=== PATIENT | female | born 1945 | race Caucasian/White ===

== ENCOUNTER 2016-07-16 15:39 | Inpatient (IN) | payer BC, OTHER ==
[~2016-07-16] VITALS: Ht 157.5 cm; Wt 77.7 kg
[2016-07-16] MEDS ORDERED: SODIUM CHLORIDE 0.9% 1000ML 1,000 ML IV STA (15:54)
--- NOTE | 2016-07-16 15:59 | EMERGENCY ROOM VISIT NOTE ---
History Report prepared by Katharine: Jacinto Vazquez Under the Supervision of: Dr. Tian Walton M.D. First contact with patient: 15:47 Stated Complaint: FALL/ DEHYDRATED, WEAK History of Present Illness The patient is a 71 year old female who presents to the Emergency Room with complaints of persistent right hip and knee pain s/p falling 2 days ago. The patient fell 2 days ago and has been lying on floor since the fall. She was found by her palliative care physician today. Upon arrival of EMS, she was hypothermic and hypoxic. She was given a liter of fluid en route, and was awake, alert, and oriented on arrival. The patient complains of right hip and right knee pain. She reports she does not have as much muscle tone as she normally does, and was unable to get herself up after the fall. She denies taking any blood thinners. Source of History: patient, nursing staff Onset: 2 days ago Position: other (right hip and knee) Quality: other (hip and knee pain) Timing: other (persistent) Associated Symptoms: + weakness Review of Systems See HPI for pertinent positives & negatives. A total of 10 systems reviewed and were otherwise negative. Past Medical & Surgical Medical Problems: (1) CKD (chronic kidney disease), stage III (2) COPD, moderate (3) Depression (4) DM type 2 (diabetes mellitus, type 2) (5) Hypothyroidism Family History No pertinent family history stated. Social History Alcohol Use: none Occupation Status: employed Current/Historical Medications Scheduled Acetaminophen (Tylenol Arthritis Ext Rel), 650 MG PO DAILY Acetazolamide (Acetazolamide), 250 MG PO TID Albuterol Sulfate (Proair Respiclick), 2 PUFF INH QID Alendronate Sodium (Fosamax), 70 MG PO WK Aspirin (Aspirin Chewable), 81 MG PO DAILY Calcitriol (Rocaltrol Cap), 0.25 MCG PO MWF Calcium Citrate-Vitamin D (Citracal + D3 Maximum), 1 TAB PO DAILY Cetirizine Hcl (Zyrtec), 5 MG PO DAILY Docusate Sodium (Colace Clear), 1 CAP PO DAILY Fluticasone Propionate (Nasal) (Flonase Allergy Relief), 2 SPRAYS MARI DAILY Levothyroxine Sodium (Levothyroxine Sodium), 1 TAB PO DAILY Lisinopril (Zestril), 2.5 MG PO DAILY Losartan Potassium (Cozaar), 1 TAB PO DAILY Metformin Hcl (Glucophage), 500 MG PO BID Pravastatin (Pravachol ), 20 MG PO DAILY Sertraline (Zoloft), 50 MG PO DAILY Umeclidinium-Vilanterol (Anoro Ellipta 62.5-25 Mcg/INH), 1 PUFFS INH DAILYBB Scheduled PRN Aluminum Hydroxide-Mag Trisil (Gaviscon), 2-4 TAB PO QID PRN for GI Upset Allergies Coded Allergies: Penicillins (Verified Allergy, Unknown, ., 07/16/16) Physical Exam Vital Signs Date Time Temp Pulse Resp B/P Pulse Ox O2 Delivery O2 Flow Rate FiO2 07/16/16 18:05 93 18 100/70 96 Nasal Cannula 2.0 07/16/16 17:49 36.4 86 16 97/67 100 Nasal Cannula 2.0 07/16/16 16:36 88 07/16/16 16:27 35.9 88 22 135/85 100 Nasal Cannula 2.0 07/16/16 16:19 78 16 132/66 100 Nasal Cannula 2.0 Physical Exam GENERAL: Patient is chronically unwell and tired appearing and cool to the touch. HEENT: No acute trauma, normocephalic atraumatic, mucous membranes moist, no nasal congestion, no scleral icterus. NECK: No stridor, no adenopathy, no meningismus, trachea is midline. LUNGS: No dyspnea. Clear to auscultation and equal bilaterally. No wheeze, no rhonchi. HEART: Regular rate and rhythm. No murmurs, rubs, gallops appreciated. ABDOMEN: Soft, nontender, bowel sounds positive, no masses appreciated, no peritonitis. BACK: No midline tenderness, no CVA tenderness EXTREMITIES: Hands and feet are muddled. Compression ulcer of right knee. Bruising from right face over right chest and arm down right leg. NEUROLOGIC: Alert and oriented, no acute motor or sensory deficits, no focal weakness, cranial nerves grossly intact. SKIN: No rash, no jaundice, no diaphoresis. Medical Decision & Procedures ER Provider Diagnostic Interpretation: Radiology results and stated below per my review and radiologist interpretation: HEAD CT NONCONTRAST Findings: The paranasal sinuses and mastoid air cells are clear. The calvarium and skull base are intact. Mild atrophy and microvascular ischemic changes are noted. There is no mass, midline shift, acute infarct. Small hyperdense focus within the left posterior parietal lobe on image 17. This measures 8 mm. Impression: Small hyperdense focus within the left posterior parietal lobe on image 17. This favors artifact. However, a small cortical contusion/hemorrhage could also have a similar appearance. [address] follow-up is recommended to ensure stability. Electronically signed by: Thomas Pang M.D. 07/16/2016 5:51 PM Dictated Date/Time: 07/16/2016 5:47 PM CHEST ONE VIEW PORTABLE FINDINGS: The lungs are clear. Cardiac silhouette is normal in size. No pleural effusions. No pneumothorax. IMPRESSION: No acute process. Electronically signed by: Thomas Pang M.D. 07/16/2016 5:59 PM Dictated Date/Time: 07/16/2016 5:59 PM PELVIS 1 OR 2 VIEW ROUTINE, RIGHT FEMUR 2 VIEWS ROUTINE FINDINGS: No acute fracture or dislocation within the pelvis, hips, right femur. The sacrum appears intact. Soft tissues are unremarkable. Moderate to severe osteoarthritis within the right knee. IMPRESSION: No acute fracture or dislocation within the pelvis, hips, or right femur. Electronically signed by: Thomas Pang M.D. 07/16/2016 5:59 PM Dictated Date/Time: 07/16/2016 5:57 PM PELVIS 1 OR 2 VIEW ROUTINE, RIGHT FEMUR 2 VIEWS ROUTINE FINDINGS: No acute fracture or dislocation within the pelvis, hips, right femur. The sacrum appears intact. Soft tissues are unremarkable. Moderate to severe osteoarthritis within the right knee. IMPRESSION: No acute fracture or dislocation within the pelvis, hips, or right femur. Electronically signed by: Thomas Pang M.D. 07/16/2016 5:59 PM Dictated Date/Time: 07/16/2016 5:57 PM Laboratory Results 07/16/16 16:55 Red Blood Count 4.29, Mean Corpuscular Volume 81.8, Mean Corpuscular Hemoglobin 28.2, Mean Corpuscular Hemoglobin Concent 34.5, Mean Platelet Volume 11.6, Neutrophils (%) (Auto) 82.0, Lymphocytes (%) (Auto) 4.1, Monocytes (%) (Auto) 10.2, Eosinophils (%) (Auto) 0.1, Basophils (%) (Auto) 0.2, Neutrophils # (Auto ) 13.36, Lymphocytes # (Auto) 0.67, Monocytes # (Auto) 1.67, Eosinophils # (Auto ) 0.02, Basophils # (Auto) 0.03 07/16/16 15:07 07/16/16 16:55 Test 07/16/16 15:07 07/16/16 16:05 07/16/16 16:22 07/16/16 16:23 Estimated GFR () 44.0 Estimated GFR (Non- 38.0 BUN/Creatinine Ratio 66.6 (10-20) Calcium Level 9.4 mg/dl (8.5-10.1) Phosphorus Level 4.6 mg/dl (2.5-4.9) Total Bilirubin 0.5 mg/dl (0.2-1) Alanine Aminotransferase (ALT/SGPT) 43 U/L (12-78) Alkaline Phosphatase 74 U/L (45-117) Total Protein 7.8 gm/dl (6.4-8.2) Albumin 2.9 gm/dl (3.4-5.0) Bedside Lactic Acid Venous 1.79 mmol/L (0.90-1.70) Urine Color YELLOW Urine Appearance CLOUDY (CLEAR) Urine pH 5.5 (4.5-7.5) Urine Specific [place] 1.020 (1.000-1.030) Urine Protein 1+ (NEG) Urine Glucose (UA) NEG (NEG) Urine Ketones 1+ (NEG) Urine Occult Blood 2+ (NEG) Urine Nitrite NEG (NEG) Urine Bilirubin NEG (NEG) Urine Urobilinogen NEG (NEG) Urine Leukocyte Esterase MODERATE (NEG) Urine WBC (Auto) >30 /hpf (0-5) Urine RBC (Auto) 0-4 /hpf (0-4) Urine Hyaline Casts (Auto) 5-10 /lpf (0-5) Urine Epithelial Cells (Auto) 10-20 /lpf (0-5) Urine Bacteria (Auto) 4+ (NEG) Urine Pathogenic Casts 0-3 GRANULAR CASTS /lpf (0) Urine Yeast (Auto) PRESENT (NONE PRSENT) Bedside Hemoglobin 12.9 g/dl (12.0-16.0) Bedside Hematocrit 38 % (37-47) Bedside Sodium 143 mEq/L (135-144) Bedside Potassium 3.9 mEq/L (3.3-5.0) Bedside Chloride 114 mEq/L (101-112) Bedside Total CO2 13 mEq/l (24-31) Anion Gap 21.0 mmol/L (16-25) Bedside Blood Urea Nitrogen 76 mg/dl (7-18) Bedside Creatinine 1.1 mg/dl (0.6-1.3) Bedside Glucose (other) 124 mg/dl (70-99) Bedside Ionized Calcium (Lydia) 1.13 mmol/l (1.12-1.32) Test 07/16/16 16:55 White Blood Count 16.30 K/uL (4.8-10.8) Red Blood Count 4.29 M/uL (4.2-5.4) Hemoglobin 12.1 g/dL (12.0-16.0) Hematocrit 35.1 % (37-47) Mean Corpuscular Volume 81.8 fL (80-100) Mean Corpuscular Hemoglobin 28.2 pg (25-34) Mean Corpuscular Hemoglobin Concent 34.5 g/dl (32-36) Platelet Count 228 K/uL (130-400) Mean Platelet Volume 11.6 fL (7.4-10.4) Neutrophils (%) (Auto) 82.0 % Lymphocytes (%) (Auto) 4.1 % Monocytes (%) (Auto) 10.2 % Eosinophils (%) (Auto) 0.1 % Basophils (%) (Auto) 0.2 % Neutrophils # (Auto) 13.36 K/uL (1.4-6.5) Lymphocytes # (Auto) 0.67 K/uL (1.2-3.4) Monocytes # (Auto) 1.67 K/uL (0.11-0.59) Eosinophils # (Auto) 0.02 K/uL (0-0.5) Basophils # (Auto) 0.03 K/uL (0-0.2) RDW Standard Deviation 44.7 fL (36.4-46.3) RDW Coefficient of Variation 15.0 % (11.5-14.5) Immature Granulocyte % (Auto) 3.4 % Immature Granulocyte # (Auto) 0.55 K/uL (0.00-0.02) Nucleated RBC Absolute Count (auto) 0.03 K/uL (0-0) Nucleated Red Blood Cells % 0.2 % Echinocytes 1+ Prothrombin Time 10.9 SECONDS (9.0-12.0) Prothromb Time International Ratio 1.0 (0.9-1.1) Activated Partial Thromboplast Time 30.2 SECONDS (21.0-31.0) Partial Thromboplastin Ratio 1.2 Magnesium Level 2.1 mg/dl (1.8-2.4) Direct Bilirubin 0.1 mg/dl (0-0.2) Aspartate Amino Transf (AST/SGOT) 39 U/L (15-37) Total Creatine Kinase 670 U/L (26-192) Laboratory results as reviewed by me. Medications Administered Medications (Trade) Dose Ordered Sig/[place] Route Start Time Stop Time Status Last Admin Dose Admin Sodium Chloride (Nss 1000ml) 1,000 ml @ 999 mls/hr Q1H1M STAT IV 07/16/16 15:54 07/16/16 16:54 DC 07/16/16 15:54 999 MLS/HR Ceftriaxone Sodium (Rocephin Inj) 1 gm NOW STAT IV 07/16/16 17:41 07/16/16 17:42 DC 07/16/16 18:04 1 GM Diphtheria/ Pertussis/Tetanus Vacc (Adacel Inj) 0.5 ml ONCE ONCE IM. 07/16/16 18:30 07/16/16 18:31 DC 07/16/16 18:30 0.5 ML ECG Indication: other (fall) Rate (beats per minute): 84 Rhythm: sinus rhythm Findings: no acute ischemic change, no ectopy ED Course 1550: The patient was evaluated in room A11A. A complete history and physical exam was performed. 1554: Ordered NSS 1,000 ml @ 999 mls/hr IV. 1600: Ordered Adacel Inj 0.5 ml IM. 0: I reassessed the patient. She feels better. She notes her penicillin allergy results in getting a rash. 1740: Ordered Rocephin Inj 1 gm IV. 1814: Discussed the patient's case with AN Coreas. The patient will be evaluated for further treatment and disposition. Medical Decision Differential: Toxicological, Infectious, Stroke, SAH, Trauma, Electrolyte Abnormality, Hypoglycemia, Alcohol Intoxication, Drug Intoxication, Cardiac Abnormality, Sepsis, Meningitis/Encephalitis, Trauma, Excited Delirium, Serotonin Syndrome, Psychiatric, amongst other pathologies entertained. Very dehydrated 71 yr old female with fall 2 days ago and has been laying on floor since. She has quite significant pressure ulcers of right side of body. Labs consistent with dehydration. UA consistent with UTI. Suspect early rhabdo and that CK will start elevating now that starting to hydrate and warm up. She is much more awake and interactive. CT head with questionable small area blood though most likely artifact and with fact fall was 48 hours ago, seems reasonable to just plan repeat CT in 12 hours while bringing her in here for her medical issues. Currently without need for immediate neurosurgical intervention. Stable throughout and looking better. Consults Time Called: [phone] Consulting Physician: AN Coreas - [facility] Returned Call: [phone] Discussed the patient's case with AN Coreas. The patient will be evaluated for further treatment and disposition. Impression Primary Impression: Fall Additional Impressions: Pressure ulcer Closed head injury Rhabdomyolysis UTI (urinary tract infection) Hypothermia Dehydration Scribe Attestation The scribe's documentation has been prepared under my direction and personally reviewed by me in its entirety. I confirm that the note above accurately reflects all work, treatment, procedures, and medical decision making performed by me. Departure Information Dispostion Being Evaluated By Hospitalist Referrals Ghazala Whitten M.D. (PCP) Problem Qualifiers Primary Impression: Fall Encounter type: initial encounter Qualified Codes: W19.XXXA - Unspecified fall, initial encounter Additional Impressions: Pressure ulcer Pressure ulcer location: unspecified location Pressure ulcer stage: unspecified pressure ulcer stage Qualified Codes: L89.90 - Pressure ulcer of unspecified site, unspecified stage Closed head injury Encounter type: initial encounter Qualified Codes: S09.90XA - Unspecified injury of head, initial encounter Rhabdomyolysis Rhabdomyolysis type: traumatic Encounter type: initial encounter Qualified Codes: T79.6XXA - Traumatic ischemia of muscle, initial encounter UTI (urinary tract infection) Urinary tract infection type: acute cystitis Hematuria presence: without hematuria Qualified Codes: N30.00 - Acute cystitis without hematuria Hypothermia Encounter type: initial encounter Qualified Codes: T68.XXXA - Hypothermia, initial encounter
[2016-07-16] MEDS ORDERED: DIPHTHERIA/TETANUS/PERTUSSIS 0.5 ML SYR/VIAL IM. ONE ×2 (16:00→18:30)
[2016-07-16] MEDS ORDERED: ALBU18002 INH (16:19)
[2016-07-16] MEDS ORDERED: SERT50TA PO (16:19)
[2016-07-16] MEDS ORDERED: CALC1TAB9 PO (16:19)
[2016-07-16] MEDS ORDERED: DOCU50CA10 PO (16:19)
[2016-07-16] MEDS ORDERED: LISI-789 PO (16:19)
[2016-07-16] MEDS ORDERED: ACET1TAB84 PO (16:19)
[2016-07-16] MEDS ORDERED: LOSA1TAB PO (16:19)
[2016-07-16] MEDS ORDERED: CALC0.2510 PO (16:19)
[2016-07-16] MEDS ORDERED: GLC/500 PO (16:19)
[2016-07-16] MEDS ORDERED: FLUT0.15 NAE (16:19)
[2016-07-16] MEDS ORDERED: ALEN70TA4 PO (16:19)
[2016-07-16] MEDS ORDERED: UMEC1AER INH (16:19)
[2016-07-16] MEDS ORDERED: ACET-1325 PO (16:19)
[2016-07-16] MEDS ORDERED: ASPCH81X PO (16:19)
[2016-07-16] MEDS ORDERED: ALUMCHW2 PO (16:19)
[2016-07-16] MEDS ORDERED: LEVO75TA5 PO (16:19)
[2016-07-16] MEDS ORDERED: CETI5TAB5 PO (16:19)
[2016-07-16] MEDS ORDERED: PRAV20TA PO (16:19)
[2016-07-16 16:36] LABS: BLOOD UREA NITROGEN 93 mg/dl (7-18); BUN/CREATININE RATIO 66.6 (10-20); CALCIUM 9.4 mg/dl (8.5-10.1); CARBON DIOXIDE 19 mmol/L (21-32); CHLORIDE 108 mmol/L (98-107); GLUCOSE 118 mg/dl (70-99); PHOSPHORUS 4.6 mg/dl (2.5-4.9); SODIUM 142 mmol/L (136-145)
[2016-07-16 16:37] LABS: ALKALINE PHOSPHATASE 74 U/L (45-117); ALT/SGPT 43 U/L (12-78)
[2016-07-16 16:38] LABS: ISTAT CREATININE 1.1 mg/dl (0.6-1.3); ISTAT HEMOGLOBIN 12.9 g/dl (12.0-16.0); ISTAT IONIZED CALCIUM 1.13 mmol/l (1.12-1.32)
[2016-07-16 16:45] LABS: URINE APPEARANCE CLOUDY (CLEAR); URINE BILIRUBIN NEG (NEG); URINE COLOR YELLOW; URINE NITRITE NEG (NEG); URINE PH 5.5 (4.5-7.5); UROBILINOGEN NEG (NEG); ZZURINE CULT IF INDIC CATH YES
[2016-07-16 16:49] LABS: MANUAL MICROSCOPIC REQUIRED? NO; REVIEW REQ? YES
[2016-07-16 17:19] LABS: POTASSIUM 3.5 mmol/L (3.5-5.1)
[2016-07-16 17:19] LABS: URINE PATH CASTS 0-3 GRANULAR CASTS /lpf (0)
[2016-07-16 17:22] LABS: PARTIAL THROMBOPLASTIN RATIO 1.2; PROTHROMBIN TIME (PATIENT) 10.9 SECONDS (9.0-12.0)
[2016-07-16 17:27] LABS: MAGNESIUM 2.1 mg/dl (1.8-2.4)
[2016-07-16 17:36] LABS: HEMATOCRIT 35.1 % (37-47); MEAN CELL VOLUME 81.8 fL (80-100); MEAN CORPUSCULAR HEMOGLOBIN 28.2 pg (25-34); MEAN CORPUSCULAR HGB CONC 34.5 g/dl (32-36); MEAN PLATELET VOLUME 11.6 fL (7.4-10.4); PLATELET COUNT 228 K/uL (130-400); RED BLOOD COUNT 4.29 M/uL (4.2-5.4)
[2016-07-16] MEDS ORDERED: CEFTRIAXONE SOD INJ 1 GM ADDVIAL IV STA (17:41)
--- NOTE | 2016-07-16 17:53 | DIAGNOSTIC IMAGING REPORT ---
HEAD CT NONCONTRAST CT DOSE: 537.48 mGy.cm HISTORY: Altered mental status. TECHNIQUE: Multiaxial CT images of the head were performed without the use of intravenous contrast. Automated exposure control was utilized for this study. Comparison: None. Findings: The paranasal sinuses and mastoid air cells are clear. The calvarium and skull base are intact. Mild atrophy and microvascular ischemic changes are noted. There is no mass, midline shift, acute infarct. Small hyperdense focus within the left posterior parietal lobe on image 17. This measures 8 mm. Impression: Small hyperdense focus within the left posterior parietal lobe on image 17. This favors artifact. However, a small cortical contusion/hemorrhage could also have a similar appearance. [address] follow-up is recommended to ensure stability. Electronically signed by: Thomas Pang M.D. 07/16/2016 5:51 PM Dictated Date/Time: 07/16/2016 5:47 PM
--- NOTE | 2016-07-16 18:01 | DIAGNOSTIC IMAGING REPORT ---
PELVIS 1 OR 2 VIEW ROUTINE, RIGHT FEMUR 2 VIEWS ROUTINE CLINICAL HISTORY: fall right hip pain COMPARISON STUDY: None. FINDINGS: No acute fracture or dislocation within the pelvis, hips, right femur. The sacrum appears intact. Soft tissues are unremarkable. Moderate to severe osteoarthritis within the right knee. IMPRESSION: No acute fracture or dislocation within the pelvis, hips, or right femur. Electronically signed by: Thomas Pang M.D. 07/16/2016 5:59 PM Dictated Date/Time: 07/16/2016 5:57 PM
--- NOTE | 2016-07-16 18:02 | DIAGNOSTIC IMAGING REPORT ---
CHEST ONE VIEW PORTABLE HISTORY: Fall. Altered mental status. COMPARISON: Chest 10/30/2012. FINDINGS: The lungs are clear. Cardiac silhouette is normal in size. No pleural effusions. No pneumothorax. IMPRESSION: No acute process. Electronically signed by: Thomas Pang M.D. 07/16/2016 5:59 PM Dictated Date/Time: 07/16/2016 5:59 PM
[2016-07-16 18:17] LABS: BASO % 0.2 %; BASO ABS # 0.03 K/uL (0-0.2); COMPLETE YES; ECHINOCYTES 1+; EOS % 0.1 %; IG% 3.4 %; LYMPH % 4.1 %; LYMPH ABS # 0.67 K/uL (1.2-3.4); MONO % 10.2 %
[2016-07-16] MEDS ORDERED: SODIUM CHLORIDE 0.9% 1000ML 1,000 ML IV SCH (19:15)
[2016-07-16] MEDS ORDERED: ONDANSETRON INJ 2 MG/ML 2 ML VIAL IV PRN (19:15)
[2016-07-16] MEDS ORDERED: ALBUTEROL HFA 8 GM INHALER INH PRN (19:45)
[2016-07-16] MEDS ORDERED: GLUCOSE 40% GEL 15 GM TUBE PO PRN (20:00)
[2016-07-16] MEDS ORDERED: DEXTROSE 50% 50 ML SYR IV PRN (20:00)
[2016-07-16] MEDS ORDERED: GLUCOSE 10 TABS/TUBE PO PRN (20:00)
[2016-07-16] MEDS ORDERED: GLUCAGON FOR INJ 1 MG VIAL SQ PRN (20:00)
[2016-07-16 20:02] VITALS: BP 117/70; PULSE 90; TEMP 36.5; O2SAT 100; Ht 157.5 cm; Wt 77.7 kg
--- NOTE | 2016-07-16 20:22 | History and Physical ---
History & Physical Date & Time of Service: Jul 16, 2016 at 19:16 Chief Complaint: Fall, Weakness Primary Care Physician: Ghazala Whitten M.D. History of Present Illness 71 year old female who presents to the ER after being found on the floor by her sister unable to get up. Patient reports 2 days ago when she got out of bed, she walked into her living room, lost her balance and fell. She was unable to get up. Patient reports some mild lightheadedness with the fall but denies loss of coconsciousness. She did strike her head. Patient reports earlier in the week she was constipated and took a laxative. She then had diarrhea for 3 days. She also reports a few episodes of nausea and vomiting. She denies hematemesis, coffee ground emesis, BRBPR, or dark tarry stools. No abdominal pain. She reports some mild urinary burning a few days prior to the fall. She denies associated chest pain, palpitations, or shortness of breath. Patient was unable to get up for the past two days and was found on the floor by her sister today. Upon arrival to the ER, patient was found to be mildly hypothermic, WBC 16K, mild QUIANA, and CPK 670. U/A suggestive of UTI. BP is stable and lactic acid is normal. Patient was placed on a bear hugger with improvement in temperature. She was also given IVF and Rocephin. Past Medical/Surgical History Medical Problems: (1) CKD (chronic kidney disease), stage III Status: Chronic (2) COPD, moderate Status: Chronic (3) Depression Status: Chronic (4) DM type 2 (diabetes mellitus, type 2) Status: Chronic (5) Hypothyroidism Status: Chronic Family History FH: colon cancer SISTER Social History Smoking Status: Former Smoker Alcohol Use: none Housing status: lives alone Immunizations History of Influenza Vaccine: Yes Influenza Vaccine Date: Dec 23, 2015 History of Tetanus Vaccine?: Yes Tetanus Immunization Date: Oct 16, 2008 History of Pneumococcal: Yes Pneumococcal Date: July 30, 2015 Allergies Coded Allergies: Penicillins (Verified Allergy, Unknown, ., 07/16/16) Home Medications Scheduled Acetaminophen (Tylenol Arthritis Ext Rel), 650 MG PO DAILY Acetazolamide (Acetazolamide), 250 MG PO TID Albuterol Sulfate (Proair Respiclick), 2 PUFF INH QID Alendronate Sodium (Fosamax), 70 MG PO WK Aspirin (Aspirin Chewable), 81 MG PO DAILY Calcitriol (Rocaltrol Cap), 0.25 MCG PO MWF Calcium Citrate-Vitamin D (Citracal + D3 Maximum), 1 TAB PO DAILY Cetirizine Hcl (Zyrtec), 5 MG PO DAILY Docusate Sodium (Colace Clear), 1 CAP PO DAILY Fluticasone Propionate (Nasal) (Flonase Allergy Relief), 2 SPRAYS MARI DAILY Levothyroxine Sodium (Levothyroxine Sodium), 1 TAB PO DAILY Lisinopril (Zestril), 2.5 MG PO DAILY Losartan Potassium (Cozaar), 1 TAB PO DAILY Metformin Hcl (Glucophage), 500 MG PO BID Pravastatin (Pravachol ), 20 MG PO DAILY Sertraline (Zoloft), 50 MG PO DAILY Umeclidinium-Vilanterol (Anoro Ellipta 62.5-25 Mcg/INH), 1 PUFFS INH DAILYBB Scheduled PRN Aluminum Hydroxide-Mag Trisil (Gaviscon), 2-4 TAB PO QID PRN for GI Upset Review of Systems 10 point review of systems was completed with the pertinent positives and negatives noted per the HPI Physical Exam Vital Signs Date Time Temp Pulse Resp B/P Pulse Ox O2 Delivery O2 Flow Rate FiO2 07/16/16 18:05 93 18 100/70 96 Nasal Cannula 2.0 07/16/16 17:49 36.4 86 16 97/67 100 Nasal Cannula 2.0 07/16/16 16:36 88 07/16/16 16:27 35.9 88 22 135/85 100 Nasal Cannula 2.0 07/16/16 16:19 78 16 132/66 100 Nasal Cannula 2.0 General Appearance: no apparent distress Head: + evidence of trama (left frontal hematoma) Eyes: normal inspection ENT: hearing grossly normal Neck: supple, no JVD Respiratory/Chest: lungs clear, normal breath sounds, no respiratory distress Cardiovascular: regular rate, rhythm, no edema, normal peripheral pulses Abdomen/GI: normal bowel sounds, non tender, soft Extremities/Musculoskelatal: + pertinent finding (reports pain with movement of right knee, hip, and right shoulder) Neurologic/Psych: no motor/sensory deficits, alert, oriented x 3, + pertinent finding (slow to respond at times) Skin: + pertinent finding (wound/ stage III pressure ulcer right knee; stage I pressure ulcer left sacrum) Diagnostics Laboratory Results Results Past 24 Hours Test 07/16/16 15:07 07/16/16 16:05 07/16/16 16:22 07/16/16 16:23 Range/Units Sodium Level 142 136-145 mmol/L Potassium Level 3.5-5.1 mmol/L Chloride Level 108 98-107 mmol/L Carbon Dioxide Level 19 21-32 mmol/L Anion Gap 15.0 21.0 16-25 mmol/L Blood Urea Nitrogen 93 7-18 mg/dl Creatinine 1.40 0.60-1.20 mg/dl Estimated GFR () 44.0 Estimated GFR (Non- 38.0 BUN/Creatinine Ratio 66.6 10-20 Random Glucose 118 70-99 mg/dl Calcium Level 9.4 8.5-10.1 mg/dl Phosphorus Level 4.6 2.5-4.9 mg/dl Magnesium Level 1.8-2.4 mg/dl Total Bilirubin 0.5 0.2-1 mg/dl Direct Bilirubin 0-0.2 mg/dl Aspartate Amino Transf (AST/SGOT) 15-37 U/L Alanine Aminotransferase (ALT/SGPT) 43 12-78 U/L Alkaline Phosphatase 74 45-117 U/L Total Creatine Kinase 26-192 U/L Troponin I < 0.015 0-0.045 ng/ml Total Protein 7.8 6.4-8.2 gm/dl Albumin 2.9 3.4-5.0 gm/dl Bedside Lactic Acid Venous 1.79 0.90-1.70 mmol/L Urine Color YELLOW Urine Appearance CLOUDY CLEAR Urine pH 5.5 4.5-7.5 Urine Specific [place] 1.020 1.000-1.030 Urine Protein 1+ NEG Urine Glucose (UA) NEG NEG Urine Ketones 1+ NEG Urine Occult Blood 2+ NEG Urine Nitrite NEG NEG Urine Bilirubin NEG NEG Urine Urobilinogen NEG NEG Urine Leukocyte Esterase MODERATE NEG Urine WBC (Auto) >30 0-5 /hpf Urine RBC (Auto) 0-4 0-4 /hpf Urine Hyaline Casts (Auto) 5-10 0-5 /lpf Urine Epithelial Cells (Auto) 10-20 0-5 /lpf Urine Bacteria (Auto) 4+ NEG Urine Pathogenic Casts 0-3 GRANULAR CASTS 0 /lpf Urine Yeast (Auto) PRESENT NONE PRSENT Bedside Hemoglobin 12.9 12.0-16.0 g/dl Bedside Hematocrit 38 37-47 % Bedside Sodium 143 135-144 mEq/L Bedside Potassium 3.9 3.3-5.0 mEq/L Bedside Chloride 114 101-112 mEq/L Bedside Total CO2 13 24-31 mEq/l Bedside Blood Urea Nitrogen 76 7-18 mg/dl Bedside Creatinine 1.1 0.6-1.3 mg/dl Bedside Glucose (other) 124 70-99 mg/dl Bedside Ionized Calcium (Lydia) 1.13 1.12-1.32 mmol/l Test 07/16/16 16:55 Range/Units White Blood Count 16.30 4.8-10.8 K/uL Red Blood Count 4.29 4.2-5.4 M/uL Hemoglobin 12.1 12.0-16.0 g/dL Hematocrit 35.1 37-47 % Mean Corpuscular Volume 81.8 80-100 fL Mean Corpuscular Hemoglobin 28.2 25-34 pg Mean Corpuscular Hemoglobin Concent 34.5 32-36 g/dl Platelet Count 228 130-400 K/uL Mean Platelet Volume 11.6 7.4-10.4 fL Neutrophils (%) (Auto) 82.0 % Lymphocytes (%) (Auto) 4.1 % Monocytes (%) (Auto) 10.2 % Eosinophils (%) (Auto) 0.1 % Basophils (%) (Auto) 0.2 % Neutrophils # (Auto) 13.36 1.4-6.5 K/uL Lymphocytes # (Auto) 0.67 1.2-3.4 K/uL Monocytes # (Auto) 1.67 0.11-0.59 K/uL Eosinophils # (Auto) 0.02 0-0.5 K/uL Basophils # (Auto) 0.03 0-0.2 K/uL RDW Standard Deviation 44.7 36.4-46.3 fL RDW Coefficient of Variation 15.0 11.5-14.5 % Immature Granulocyte % (Auto) 3.4 % Immature Granulocyte # (Auto) 0.55 0.00-0.02 K/uL Nucleated RBC Absolute Count (auto) 0.03 0-0 K/uL Nucleated Red Blood Cells % 0.2 % Echinocytes 1+ Prothrombin Time 10.9 9.0-12.0 SECONDS Prothromb Time International Ratio 1.0 0.9-1.1 Activated Partial Thromboplast Time 30.2 21.0-31.0 SECONDS Partial Thromboplastin Ratio 1.2 Potassium Level 3.5 3.5-5.1 mmol/L Magnesium Level 2.1 1.8-2.4 mg/dl Direct Bilirubin 0.1 0-0.2 mg/dl Aspartate Amino Transf (AST/SGOT) 39 15-37 U/L Total Creatine Kinase 670 26-192 U/L Microbiology Results 07/16/16 Blood Culture, Received Pending 07/16/16 Blood Culture, Received Pending 07/16/16 Urine Culture, Received Pending Diagnostic Radiology CT Head Impression: Small hyperdense focus within the left posterior parietal lobe on image 17. This favors artifact. However, a small cortical contusion/hemorrhage could also have a similar appearance. [address] follow-up is recommended to ensure stability. CXR IMPRESSION: No acute process. PELVIS / RIGHT FEMUR XR IMPRESSION: No acute fracture or dislocation within the pelvis, hips, or right femur. Normal EKG Impression Assessment and Plan SEPSIS DUE TO UTI FALL, LIKELY MECHANICAL - admit to tele - patient presenting after falling at home 2 days ago and remained on the floor until her sister found her today - fall seems to be mechanical as patient reports she "lost her balance", she also reports mild lightheadedness which is likely from volume depletion; no loss of coconsciousness, she denies chest pain and shortness of breath, no focal deficits on exam, EKG without acute changes, troponin negative - CT head shows a small hyperdense focus that is likely artifact, however a small hemorrhage is possible - will obtain CT head in 12 hours for follow up - on presentation, patient was hypothermic with WBC 16K, HR and BP stable, lactic acid normal - U/A suggestive of UTI - urine culture from 2012 grew MRDO E. Coli resistant to cephalosporins and fluoroquinolones - s/p Rocephin in the ED, due above culture, will place patient on Imipenem until cultures result - blood and urine cultures QUIANA ON CKD STAGE III - prerenal due to dehydration - baseline creat ~ 1.0; up to 1.4 today - CPK 670 - no rhabdo - IVF, hold ACEi HTN - BP controlled - holding Diamox and lisinopril due to QUIANA DM - hgb a1c 5.4 04/2016 - hold oral agents and utilize SSI while hospitalized COPD - no signs of acute exacerbation - continue home inhalers HYPOTHYROIDISM - continue levothyroxine DVT PROPHYLAXIS - SCDs due to scalp hematoma / multiple abrasions CODE STATUS - Patient is a full code as per discussion with Dr. Woods. DISPO - In my clinical judgment this beneficiary meets acute admission criteria, established by [facility], that includes being hospitalized through two midnights. - PT/OT, case management; may need short term placement Level of Care Telemetry Resuscitation Status FULL RESUSCITATION VTE Prophylaxis VTE Risk Assessment Done? Y/N: Yes Risk Level: Moderate Given or contraindicated: SCD's Note ATTENDING ADDENDUM: ACTIVE ISSUES: Sepsis 2/2 UTI QUIANA likely 2/2 dehydration Generalized weakness Sacral Decub-Stage I Scalp abrasion Hyperdense focus/abnormality on head CT HTN DMII I have seen and examined the patient and agree with the note above. Imipenem in setting of prior ESBL+E coli. Generalized weakness and E coli likely 2/2 UTI. Elevated BUN without pericardial friction rub on exam, likely acute and 2/ 2 myositis as evidenced by elevated CK--cont IVF overnight and repeat labs in am. Fall with hyperdense focus on CT on opposite side of head injury--read as possible artifact? Repeat CT head ordered for the morning. Monitoring on tele overnight. Chuck, DO
[2016-07-16] MEDS: INSULIN ASPART 100 UNITS/ML 3 ML PEN SC SCH (20:53)
[2016-07-16] MEDS ORDERED: IMIPENEM/CILASTATIN CONSULT ACTIVE PRN (21:00)
[2016-07-16] MEDS: IMIPENEM/CILASTATIN IV 300 MG in DEXTROSE 5% 100ML 100 ML IV SCH (21:27)
[2016-07-16 23:52] VITALS: BP 115/59; PULSE 85; TEMP 36.5; O2SAT 100
[2016-07-17] VITALS (7 sets, daily range): BP systolic 116–127; BP diastolic 69–80; PULSE 71–81; TEMP 36.4–37; O2SAT 96–99
[2016-07-17 02:41] LABS: HEMATOCRIT 30.5 % (37-47); MEAN CELL VOLUME 82.2 fL (80-100); MEAN CORPUSCULAR HEMOGLOBIN 27.8 pg (25-34); MEAN CORPUSCULAR HGB CONC 33.8 g/dl (32-36); MEAN PLATELET VOLUME 11.5 fL (7.4-10.4); PLATELET COUNT 175 K/uL (130-400); RED BLOOD COUNT 3.71 M/uL (4.2-5.4); WHITE BLOOD COUNT 13.07 K/uL (4.8-10.8)
[2016-07-17 03:10] LABS: BUN/CREATININE RATIO 72.3 (10-20); CALCIUM 7.7 mg/dl (8.5-10.1); CKMB/CK RATIO 1.3 (0-3.0); CREATININE 1.1 mg/dl (0.60-1.20); POTASSIUM 3.2 mmol/L (3.5-5.1)
[2016-07-17] MEDS: IMIPENEM/CILASTATIN IV 300 MG in DEXTROSE 5% 100ML 100 ML IV SCH ×4 (03:54→22:07)
[2016-07-17] MEDS ORDERED: POTASSIUM CHLORIDE 10 MEQ TABCR PO STA (04:56)
[2016-07-17] MEDS ORDERED: LACTATED RINGER'S 1000ML 1,000 ML IV ONE (05:00)
[2016-07-17] MEDS: ACETAMINOPHEN 325 MG TAB PO PRN (05:38)
[2016-07-17 05:39] LABS: MAGNESIUM 1.8 mg/dl (1.8-2.4)
[2016-07-17] MEDS: LEVOTHYROXINE 75 MCG TAB PO SCH (05:39)
[2016-07-17] MEDS: INSULIN ASPART 100 UNITS/ML 3 ML PEN SC SCH ×4 (08:41→22:03)
[2016-07-17] MEDS: CALCITRIOL 0.25 MCG CAP PO SCH (08:52)
[2016-07-17] MEDS: PRAVASTATIN SOD 20 MG TAB PO SCH (08:52)
[2016-07-17] MEDS: SERTRALINE HCL 50 MG TAB PO SCH (08:52)
--- NOTE | 2016-07-17 08:52 | DIAGNOSTIC IMAGING REPORT ---
CT OF THE HEAD WITHOUT CONTRAST CLINICAL HISTORY: Follow up possible bleed. COMPARISON STUDY: Head CT July 16, 2016. CT DOSE: 638.56 mGycm TECHNIQUE: Helical axial images of the head were obtained without IV contrast. Automated exposure control was utilized for the study. FINDINGS: The possible small bleed within the posterior left parietal lobe shown on prior exam of July 16, 2016 is less conspicuous on this exam. A linear hyperdensity is noted at this site on axial images 14 and 15 of 28. The ventricular system is normal. The basilar cisterns are patent. There are no CT findings to suggest acute dural sinus thrombosis or acute territorial infarct. There is no calvarial fracture. Visualized portions of the sinuses and mastoid air cells are clear. IMPRESSION: 1. Decreased conspicuity of the possible small bleed within the left parietal lobe since head CT of July 16, 2016. This could reflect artifact or a resolving focus of hemorrhage. 2. Otherwise, unchanged appearance of the head. Electronically signed by: Nicko Bar M.D. 07/17/2016 8:50 AM Dictated Date/Time: 07/17/2016 8:46 AM
[2016-07-17] MEDS ORDERED: VANCOMYCIN CONSULT ACTIVE PRN (08:53)
[2016-07-17] MEDS ORDERED: VANCOMYCIN INJ 2,000 MG in SODIUM CHLORIDE 0.9% 500ML 500 ML IV ONE (09:30)
--- NOTE | 2016-07-17 10:02 | Pharmacy Progress Note ---
Pharmacy Antibiotic Consult Date of Service: Jul 17, 2016. Pharmacy Dosing Scope Pharmacy is consulted to initiate Vancomycin and Primaxin IV dosing therapy, order appropriate labs and adjust drug dose/frequency. Subjective The patient is a 71 year old female admitted on Jul 16, 2016 at 18:42. Objective Height (Feet): 5 Height (Inches): 2.00 Weight (Kilograms): 77.700 Lab Results (24hrs): Laboratory Tests Test 07/16/16 15:07 07/16/16 16:55 07/17/16 02:35 BUN/Creatinine Ratio 66.6 72.3 Blood Urea Nitrogen 93 mg/dl 80 mg/dl Creatinine 1.40 mg/dl 1.10 mg/dl White Blood Count 16.30 K/uL 13.07 K/uL Red Blood Count 4.29 M/uL Hemoglobin 12.1 g/dL Hematocrit 35.1 % Mean Corpuscular Volume 81.8 fL Mean Corpuscular Hemoglobin 28.2 pg Mean Corpuscular Hemoglobin Concent 34.5 g/dl Platelet Count 228 K/uL Mean Platelet Volume 11.6 fL Neutrophils (%) (Auto) 82.0 % Lymphocytes (%) (Auto) 4.1 % Monocytes (%) (Auto) 10.2 % Eosinophils (%) (Auto) 0.1 % Basophils (%) (Auto) 0.2 % Neutrophils # (Auto) 13.36 K/uL Lymphocytes # (Auto) 0.67 K/uL Monocytes # (Auto) 1.67 K/uL Eosinophils # (Auto) 0.02 K/uL Basophils # (Auto) 0.03 K/uL Micro Results: Item Value Date Time Blood Culture Received 07/17/16 0920 Blood Pending Blood Culture Received 07/17/16 0920 Blood Pending Blood Culture Received 07/16/16 1655 Blood Pending Urine Culture - Preliminary Resulted 07/16/16 1622 Urine,Catheterized Escherichia Coli Blood Culture - Preliminary Resulted 07/16/16 1600 Blood Gram Positive Cocci Assessment & Plan Assessment 71 year old female with h/o CKD III admitted with suspected sepsis, UTI. Preliminary culture results - GPC in 1/2 blood cultures and E.coli in urine Patient grew a cephalosporin and fluoroquinolone resistant E.coli in 2012. Plan Vancomycin + Primaxin IV for treatment of GPC sepsis and E.coli UTI. Vancomycin IV * Loading dose: 2000 mg (26 mg/kg) * Maintenance dose: 1200 mg IV (15 mg/kg) every 18 hours * Goal trough level for sepsis: 15 to 20 mcg/mL * Trough level ordered for 07/19/16 Primaxin * Continue 300 mg IV every 6 hours for CrCl 30-59 ml/min (based on target dose of 500 mg q6) Pharmacy will continue to follow and will adjust dose/frequency as necessary. Thank you
--- NOTE | 2016-07-17 10:04 | Progress Note ---
Progress Note Date of Service Jul 17, 2016. Progress Note ID Consult Dictated #[id number] A/P: 1. + blood culture 2. E. coli uti 3. Leukocytosis -Continue current abx for now, await further ID/sensitivities from blood and urine culture, repeat blood cultures pending -wbc improving -will follow, thank you
--- NOTE | 2016-07-17 10:33 | INFECT. DISEASE CONSULTATION ---
DATE OF CONSULTATION: 07/17/2016 DATE OF CONSULTATION: 07/17/2016. REQUESTING PHYSICIAN: Dr. Guerrero. HISTORY OF PRESENT ILLNESS: This is a 71-year-old female who was admitted after she was being found on the floor by her sister. She states that on Sunday she lost her balance and fell and was unable to get up. She was on the floor until she was found by her sister yesterday and brought to the Emergency Room. Her CPK was mildly elevated. She was also noted to have a significant leukocytosis of 16,000 in the Emergency Room. She has been afebrile since admission. Blood cultures were obtained as part of her workup and in 1 set she is growing gram positive cocci which has not been identified. Her urinalysis did show greater than 30 WBCs and 4+ bacteria. A urine culture is pending. Blood cultures were ordered for this morning and those are pending as well. She does admit to having at least 1 week's worth of burning with urination and some urgency. She was not on any antibiotics and did not seek care for this. She states overall she was feeling generally fatigued and weak and stopped taking her medication at home also. She has not had anything to eat or drink since Sunday when she had the fall; however, she was able to eat breakfast this morning and tolerated it well. She denies any nausea or vomiting. She does report history of diarrhea prior to admission which is resolving. She was not on any medication for this and did not seek any care. She denies any fevers or chills prior to admission. Overall, she states she is feeling significantly better since admission to the hospital. She was placed empirically on vancomycin and imipenem and is tolerating these antibiotics well. All remaining review of systems are reviewed and are negative except or as noted above. PAST MEDICAL HISTORY: Significant for chronic kidney disease, COPD, depression, type 2 diabetes and hypothyroidism. FAMILY HISTORY: Noncontributory. SOCIAL HISTORY: Significant for history of tobacco use. She denies any alcohol or drug use. She lives alone. ALLERGIES: SHE HAS REPORTED ALLERGY TO PENICILLIN, but is tolerating imipenem well. CURRENT MEDICATIONS: Include vancomycin, calcitriol, Pravachol, Zoloft, Synthroid, insulin, imipenem, albuterol, Tylenol and Zofran. PHYSICAL EXAMINATION: VITAL SIGNS: Her temperature upon admission was 35.9. Her current temperature is 37, pulse 71, respiratory rate 19, blood pressure 117/77. Oxygen saturation is 98-100% on 2 liters nasal cannula. GENERAL: She is awake, alert and oriented x3. She is in no acute distress. HEAD, EYES, EARS, NOSE, AND THROAT: Mucous membranes are moist. Extraocular muscles are intact. HEART: Regular. LUNGS: Clear bilaterally. ABDOMEN: Soft, nontender, nondistended. There is no suprapubic tenderness. There is no edema bilaterally. SKIN: Without rash. LABORATORY STUDIES: CBC today reveals a white blood cell count of 13.0 down from 16.3 on admission. Hemoglobin 10.3, platelets are 175. Chemistry panel today reveals a sodium of 141, potassium 3.2, chloride 111, bicarbonate 17, BUN 80, creatinine 1.1, glucose is 90. CK is 568 improved from 670. LFTs are within normal limits on admission to the hospital. Lactic acid yesterday was 1.7. Blood cultures from the are growing gram positive cocci which have yet to be identified from 1 of 1 set. Urine culture from the is now growing over 100,000 E. coli. Repeat blood cultures from the are pending. Chest x-ray was within normal limits. She has had 2 CAT scans during this admission which are negative for any acute trauma. Femur and hip x-rays are negative as well. ASSESSMENT AND PLAN: 1. Positive blood culture. 2. Urinary tract infection with Escherichia coli. 3. Leukocytosis. At this time, I would continue her on broad-spectrum antibiotics pending the results of her repeat blood cultures and further identification and sensitivity from the gram positive bacilli from her blood stream as well as final sensitivities of E. coli. Hopefully, within the next 2-3 days, her antibiotics can be narrowed. We will continue to follow along with you. Thank you for this consultation.
--- NOTE | 2016-07-17 13:12 | Clinical Documentation Query ---
CLINICAL DOCUMENTATION QUERY 71 year old female who presents to the Emergency Room with complaints of persistent right hip and knee pain s/p falling. The patient fell 2 days ago and has been lying on floor since the fall. In your clinical opinion is this patient being managed for: ( X ) Sepsis in setting of UTI with recent fall and QUIANA ( ) Other explanation of clinical findings (Please Explain) ( ) Unable to determine (Please Define) ( ) Need to Discuss ( ) Not Agree The medical record reflects the following clinical findings, treatment, and risk factors. Clinical Indicators: Hypothermia 35.9 rectally, Leukocytosis 16.30, QUIANA BUN 93, Creatinine 1.40, GFR 38.0, elevated serum lactate 1.79, +BC, +UC. Treatment: IVF boluses, IV Vancomycin, IV Ceftriaxone, IV Primaxin, ID Consult Risk Factors: Age, UTI, multiple decubiti, +BC, Please clarify and document your clinical opinion in the progress notes and discharge summary. Terms such as "probable", "suspected", "likely", "questionable", "possible", or "still to be ruled out" are acceptable. IF IN AGREEMENT, YOU MUST DOCUMENT ABOVE DIAGNOSTIC STATEMENT IN DAILY PROGRESS NOTES AND DISCHARGE SUMMARY. This document is not part of the patient's record. Thank You, Shilo Hand RN [phone]
--- NOTE | 2016-07-17 16:39 | Progress Note ---
Medicine Progress Note Date & Time of Visit: Jul 17, 2016 at 16:15. Subjective Patient seen and examined. Feels much better today. Objective Last 8 Hrs Date Time Temp Pulse Resp B/P Pulse Ox O2 Delivery O2 Flow Rate FiO2 07/17/16 15:05 36.9 79 18 116/76 96 Room Air 07/17/16 14:00 36.4 78 18 121/80 96 Room Air 07/17/16 13:46 36.7 77 20 99 2.0 07/17/16 12:00 Nasal Cannula 2.0 07/17/16 10:40 36.7 77 20 127/76 99 Room Air Physical Exam: General-awake; alert; NAD Eyes-EOMI; no scleral icterus Neck-no stridor; trachea midline Lungs-CTA bilaterally; no wheezes/crackles Heart-RRR Abdomen-soft; NTND; nBS Extremities-no c/c/e; no deformity Neuro-no focal deficits Laboratory Results: Last 24 Hours Test 07/16/16 16:22 07/16/16 16:23 07/16/16 16:55 07/16/16 20:26 Urine Color YELLOW Urine Appearance CLOUDY Urine pH 5.5 Urine Specific [place] 1.020 Urine Protein 1+ Urine Glucose (UA) NEG Urine Ketones 1+ Urine Occult Blood 2+ Urine Nitrite NEG Urine Bilirubin NEG Urine Urobilinogen NEG Urine Leukocyte Esterase MODERATE Urine WBC (Auto) >30 /hpf Urine RBC (Auto) 0-4 /hpf Urine Hyaline Casts (Auto) 5-10 /lpf Urine Epithelial Cells (Auto) 10-20 /lpf Urine Bacteria (Auto) 4+ Urine Pathogenic Casts 0-3 GRANULAR CASTS /lpf Urine Yeast (Auto) PRESENT Bedside Hemoglobin 12.9 g/dl Bedside Hematocrit 38 % Bedside Sodium 143 mEq/L Bedside Potassium 3.9 mEq/L Bedside Chloride 114 mEq/L Bedside Total CO2 13 mEq/l Anion Gap 21.0 mmol/L Bedside Blood Urea Nitrogen 76 mg/dl Bedside Creatinine 1.1 mg/dl Bedside Glucose (other) 124 mg/dl Bedside Ionized Calcium (Lydia) 1.13 mmol/l White Blood Count 16.30 K/uL Red Blood Count 4.29 M/uL Hemoglobin 12.1 g/dL Hematocrit 35.1 % Mean Corpuscular Volume 81.8 fL Mean Corpuscular Hemoglobin 28.2 pg Mean Corpuscular Hemoglobin Concent 34.5 g/dl Platelet Count 228 K/uL Mean Platelet Volume 11.6 fL Neutrophils (%) (Auto) 82.0 % Lymphocytes (%) (Auto) 4.1 % Monocytes (%) (Auto) 10.2 % Eosinophils (%) (Auto) 0.1 % Basophils (%) (Auto) 0.2 % Neutrophils # (Auto) 13.36 K/uL Lymphocytes # (Auto) 0.67 K/uL Monocytes # (Auto) 1.67 K/uL Eosinophils # (Auto) 0.02 K/uL Basophils # (Auto) 0.03 K/uL RDW Standard Deviation 44.7 fL RDW Coefficient of Variation 15.0 % Immature Granulocyte % (Auto) 3.4 % Immature Granulocyte # (Auto) 0.55 K/uL Nucleated RBC Absolute Count (auto) 0.03 K/uL Nucleated Red Blood Cells % 0.2 % Echinocytes 1+ Prothrombin Time 10.9 SECONDS Prothromb Time International Ratio 1.0 Activated Partial Thromboplast Time 30.2 SECONDS Partial Thromboplastin Ratio 1.2 Potassium Level 3.5 mmol/L Magnesium Level 2.1 mg/dl Direct Bilirubin 0.1 mg/dl Aspartate Amino Transf (AST/SGOT) 39 U/L Total Creatine Kinase 670 U/L Bedside Glucose 93 mg/dl Test 07/16/16 21:00 07/16/16 21:18 07/17/16 02:35 07/17/16 06:26 Creatine Kinase MB Ratio 1.3 Creatine Kinase MB 10.5 ng/ml 7.1 ng/ml Troponin I 0.020 ng/ml 0.017 ng/ml White Blood Count 13.07 K/uL Red Blood Count 3.71 M/uL Hemoglobin 10.3 g/dL Hematocrit 30.5 % Mean Corpuscular Volume 82.2 fL Mean Corpuscular Hemoglobin 27.8 pg Mean Corpuscular Hemoglobin Concent 33.8 g/dl RDW Standard Deviation 45.1 fL RDW Coefficient of Variation 14.9 % Platelet Count 175 K/uL Mean Platelet Volume 11.5 fL Sodium Level 141 mmol/L Potassium Level 3.2 mmol/L Chloride Level 111 mmol/L Carbon Dioxide Level 17 mmol/L Anion Gap 13.0 mmol/L Blood Urea Nitrogen 80 mg/dl Creatinine 1.10 mg/dl Est Creatinine Clear Calc Drug Dose 44.4 ml/min Estimated GFR () 58.9 Estimated GFR (Non- 50.8 BUN/Creatinine Ratio 72.3 Random Glucose 95 mg/dl Calcium Level 7.7 mg/dl Magnesium Level 1.8 mg/dl Total Creatine Kinase 568 U/L Bedside Glucose 90 mg/dl Test 07/17/16 11:11 Bedside Glucose 88 mg/dl Date/Time Source Procedure Growth Status 07/17/16 09:20 Blood Blood Culture Pending Received 07/17/16 09:20 Blood Blood Culture Pending Received 07/16/16 16:55 Blood Blood Culture Pending Received 07/16/16 16:22 Urine,Catheterized Urine Culture - Preliminary Escherichia Coli Resulted Assessment & Plan SEPSIS IN THE SETTING OF UTI and QUIANA - on presentation, patient was hypothermic with WBC 16K, HR and BP stable, lactic acid normal - urinalysis dirty - urine culture with E coli - (urine culture from 2012 grew MRDO E. Coli resistant to cephalosporins and fluoroquinolones) - s/p Rocephin in the ED; due above culture, continue Imipenem - blood culture 07/16 with gm- bacilli and gm+ cocci (1of2) - repeat blood cultures 07/17 pending - Infectious disease consulted FALL, LIKELY MECHANICAL - CT head shows a small hyperdense focus that is likely artifact, however a small hemorrhage is possible - repeat CT head shows decreased focus, again possibly reflecting artifact vs resolving focus of hemorrhage - pelvis and femur xrays negative for fracture - PT/OT evaluations recommending rehab - patient is not safe to return home - social media editor consulted QUIANA ON CKD STAGE III - creatinine 1.4 on admission - prerenal due to dehydration and infection - baseline creat ~ 1.0 - resolved with IVF's HTN - BP controlled - continue holding Diamox and lisinopril for now as pressures remain normotensive DM - hgb a1c 5.4 04/2016 - hold oral agents and utilize SSI while hospitalized COPD - no signs of acute exacerbation - continue home inhalers HYPOTHYROIDISM - continue levothyroxine DVT PROPHYLAXIS - SCDs due to scalp hematoma / multiple abrasions CODE STATUS - Patient is a full code PT/OT evaluations recommending acute rehab. supervisor customer services consulted. Consultants: Infectious disease Current Inpatient Medications: Current Inpatient Medications Medications (Trade) Dose Ordered Sig/[place] Route Start Time Stop Time Status Last Admin Dose Admin Acetaminophen (Tylenol Tab) 650 mg Q4H PRN PO 07/16/16 19:15 08/15/16 19:14 07/17/16 05:38 650 MG Ondansetron HCl (Zofran Inj) 4 mg Q6H PRN IV 07/16/16 19:15 08/15/16 19:14 Calcitriol (Rocaltrol Cap) 0.25 mcg MoWeFr@0900 PO 07/17/16 09:00 08/16/16 08:59 07/17/16 08:52 0.25 MCG Levothyroxine Sodium (Synthroid Tab) 75 mcg DAILYBB PO 07/17/16 06:00 08/16/16 05:59 07/17/16 05:39 75 MCG Pravastatin Sodium (Pravachol Tab) 20 mg DAILY PO 07/17/16 09:00 08/16/16 08:59 07/17/16 08:52 20 MG Sertraline HCl (Zoloft Tab) 50 mg DAILY PO 07/17/16 09:00 08/16/16 08:59 07/17/16 08:52 50 MG Miscellaneous Information (Order Awaiting Action) 1 ea TID N/A 07/16/16 20:00 08/15/16 19:59 Albuterol (Ventolin Hfa Inhaler) 2 puffs QID PRN INH 07/16/16 19:45 08/15/16 19:44 Insulin Aspart (novoLOG ASPART) SLIDING SCALE If C... ACHS SC 07/16/16 21:00 08/15/16 20:59 Glucose (Glucose 40% Gel) 15-30 GRAMS 15 GRAMS... UD PRN PO 07/16/16 20:00 08/15/16 19:59 Glucose (Glucose Chew Tab) 4-8 Tablets 4 Tabl... UD PRN PO 07/16/16 20:00 08/15/16 19:59 Dextrose (Dextrose 50% 50ML Syringe) 25-50ML OF 50% DW IV FOR... UD PRN IV 07/16/16 20:00 08/15/16 19:59 Glucagon 1 mg 1 mg UD PRN SQ 07/16/16 20:00 08/15/16 19:59 Imipenem/ Cilastatin Sodium/ Dextrose (Primaxin Iv/D5 100ml) 106 ml @ 212 mls/hr Q6H IV 07/16/16 21:00 07/21/16 20:59 07/17/16 08:52 212 MLS/HR Imipenem/ Cilastatin Sodium 1 ea 1 ea UD PRN N/A 07/16/16 21:00 08/15/16 20:59 Lactated Ringer's (Lr 1000ml) 1,000 ml @ 75 mls/hr [id number] ONCE IV 07/17/16 05:00 07/17/16 18:19 07/17/16 05:38 75 MLS/HR Vancomycin HCl 1 ea 1 ea DAILY PRN N/A 07/17/16 08:53 08/16/16 08:52 Vancomycin HCl/ Sodium Chloride (Vancomycin Inj/ Nss 250ml) 274 ml @ 125 mls/hr Q18H IV 07/18/16 04:00 07/31/16 08:59
[2016-07-17] MEDS ORDERED: CEFTRIAXONE SOD INJ 1 GM in DEXTROSE 5% ADD-VANTAGE 50ML 50 ML IV SCH (18:00)
[2016-07-18] MEDS: ACETAMINOPHEN 325 MG TAB PO PRN ×3 (00:07→16:16)
[2016-07-18 00:36] VITALS: BP 137/78; PULSE 91; TEMP 36.8; O2SAT 100
[2016-07-18] MEDS: IMIPENEM/CILASTATIN IV 300 MG in DEXTROSE 5% 100ML 100 ML IV SCH ×4 (03:23→20:58)
[2016-07-18] MEDS ORDERED: VANCOMYCIN INJ 1,200 MG in SODIUM CHLORIDE 0.9% 250ML 250 ML IV SCH (04:00)
[2016-07-18] MEDS: LEVOTHYROXINE 75 MCG TAB PO SCH (06:04)
[2016-07-18] MEDS: INSULIN ASPART 100 UNITS/ML 3 ML PEN SC SCH ×4 (06:30→20:58)
[2016-07-18 06:53] LABS: HEMATOCRIT 28.8 % (37-47); MEAN CORPUSCULAR HEMOGLOBIN 28.2 pg (25-34); MEAN PLATELET VOLUME 10.9 fL (7.4-10.4); PLATELET COUNT 178 K/uL (130-400); RED BLOOD COUNT 3.47 M/uL (4.2-5.4)
[2016-07-18 07:22] VITALS: BP 108/67; PULSE 71; TEMP 36.9; O2SAT 97
[2016-07-18] MEDS: SERTRALINE HCL 50 MG TAB PO SCH (08:05)
[2016-07-18] MEDS: PRAVASTATIN SOD 20 MG TAB PO SCH (08:05)
[2016-07-18 08:15] LABS: BUN/CREATININE RATIO 47.8 (10-20); CALCIUM 7.9 mg/dl (8.5-10.1); CREATININE 0.81 mg/dl (0.60-1.20); MAGNESIUM 1.9 mg/dl (1.8-2.4); POTASSIUM 3.4 mmol/L (3.5-5.1)
[2016-07-18] MEDS ORDERED: POTASSIUM CHLORIDE 10 MEQ TABCR PO ONE (09:30)
[2016-07-18] MEDS: SODIUM CHLORIDE 0.9% 1000ML 1,000 ML IV SCH ×2 (09:32→22:22)
--- NOTE | 2016-07-18 11:19 | Progress Note ---
Subjective Date of Service: Jul 18, 2016. Subjective pt initial blood cultures growing gpc, gnr, ID pending. urine with E. coli, sensitive to Imipenem. repeat blood cultures pending. afebrile overnight. wbc improved to 12 toay, pt not in room this am. Problem List Medical Problems: (1) Closed head injury Status: Acute (2) Dehydration Status: Acute (3) Fall Status: Acute (4) Hypothermia Status: Acute (5) Pressure ulcer Status: Acute (6) Rhabdomyolysis Status: Acute (7) UTI (urinary tract infection) Status: Acute Objective Vital Signs Date Time Temp Pulse Resp B/P Pulse Ox O2 Delivery O2 Flow Rate FiO2 07/18/16 08:00 Room Air 07/18/16 07:22 36.9 71 18 108/67 97 Room Air 07/18/16 00:36 36.8 91 20 137/78 100 Room Air 07/18/16 00:00 Room Air 07/17/16 16:00 96 Room Air 07/17/16 15:05 36.9 79 18 116/76 96 Room Air 07/17/16 14:00 36.4 78 18 121/80 96 Room Air 07/17/16 13:46 36.7 77 20 99 2.0 07/17/16 12:00 Nasal Cannula 2.0 Laboratory Results Item Value Date Time Blood Culture - Preliminary Resulted 07/16/16 1600 Blood Gram Positive Cocci Urine Culture - Preliminary Resulted 07/16/16 1622 Urine,Catheterized Escherichia Coli Last 24 Hours Test 07/17/16 16:14 07/17/16 20:54 07/18/16 06:35 07/18/16 07:37 Bedside Glucose 83 mg/dl 95 mg/dl 88 mg/dl White Blood Count 12.60 K/uL Red Blood Count 3.47 M/uL Hemoglobin 9.8 g/dL Hematocrit 28.8 % Mean Corpuscular Volume 83.0 fL Mean Corpuscular Hemoglobin 28.2 pg Mean Corpuscular Hemoglobin Concent 34.0 g/dl RDW Standard Deviation 46.5 fL RDW Coefficient of Variation 15.2 % Platelet Count 178 K/uL Mean Platelet Volume 10.9 fL Sodium Level 139 mmol/L Potassium Level 3.4 mmol/L Chloride Level 111 mmol/L Carbon Dioxide Level 18 mmol/L Anion Gap 10.0 mmol/L Blood Urea Nitrogen 39 mg/dl Creatinine 0.81 mg/dl Est Creatinine Clear Calc Drug Dose 62.4 ml/min Estimated GFR () 85.3 Estimated GFR (Non- 73.6 BUN/Creatinine Ratio 47.8 Random Glucose 91 mg/dl Calcium Level 7.9 mg/dl Magnesium Level 1.9 mg/dl Assessment and Plan (1) Polymicrobial sepsis Assessment & Plan: continue current abx pending additional culture data. await blood culture results. saúl stopped, would continue this pending ID gpc in blood. (2) UTI (urinary tract infection) Problem Qualifiers (1) UTI (urinary tract infection): Urinary tract infection type: acute cystitis Hematuria presence: without hematuria Qualified Codes: N30.00 - Acute cystitis without hematuria
--- NOTE | 2016-07-18 11:21 | DIAGNOSTIC IMAGING REPORT ---
CT OF THE CERVICAL SPINE CLINICAL HISTORY: Neck and right arm pain status post trauma COMPARISON STUDY: No previous studies for comparison. CT DOSE: 466.95 mGycm TECHNIQUE: CT scan of the cervical spine was performed from the skull base to the thoracic inlet. Images are reviewed in the axial, sagittal, and coronal planes. IV contrast was not administered for this examination. FINDINGS: The visualized portions of the lung apices reveal no evidence of pneumothorax. The prevertebral soft tissues are normal. No fractures or subluxations are visualized. There are multilevel degenerative changes. Several disc protrusions are suspected most pronounced at the C3-4, C4-5, and C5-6 levels. There is secondary spinal canal narrowing. IMPRESSION: 1. No evidence of acute fracture or traumatic subluxation. 2. Multilevel degenerative change with suspected multilevel disc protrusions and secondary spinal canal narrowing Electronically signed by: Isaac Kumari M.D. 07/18/2016 11:19 AM Dictated Date/Time: 07/18/2016 11:16 AM
[2016-07-18] MEDS ORDERED: VANCOMYCIN CONSULT ACTIVE PRN (12:30)
--- NOTE | 2016-07-18 13:18 | Pharmacy Progress Note ---
Pharmacy Antibiotic Prog Note Date of Service Jul 18, 2016. Subjective The patient is currently receiving the following antimicrobials per Pharmacy Consult service: - Primaxin 300 mg IV every 6 hours - Vancomycin IV Objective Height (Feet): 5 Height (Inches): 2.00 Weight (Kilograms): 77.700 Lab Results (24hrs): Laboratory Tests Test 07/18/16 06:35 BUN/Creatinine Ratio 47.8 Blood Urea Nitrogen 39 mg/dl Creatinine 0.81 mg/dl White Blood Count 12.60 K/uL Micro Results: Item Value Date Time Blood Culture - Preliminary Resulted 07/16/16 1600 Blood Gram Positive Cocci Blood Culture - Preliminary Resulted 07/16/16 1655 Blood NO GROWTH TO DATE. Blood Culture Received 07/17/16 0920 Blood Pending Blood Culture Received 07/17/16 0920 Blood Pending PATIENT: LUIS STONE LOC: [id number] U # : [id number] AGE/SX: 71/F ROOM: [facility] REG : 07/16/[address]: Semaj Nowak MD : [id number] BED: 1 DIS : STATUS: ADM IN TLOC: SPEC #: [id number] SHAKIRA: 07/16/16 STATUS: COMP REQ #: [id number] RECD: 07/16/[address]: Tian Walton M.D. SOURCE: URINE CATH ENTR: 07/16/[address]: Ghazala Whitten M.D. [facility]: ORDERED: CULTURE UR CATH Procedure Result Verified Site URINE CULTURE Final 07/18/16-1204 Organism 1 ESCHERICHIA COLI COLONY COUNT >100,000 CFU/ml SENS SENSITIVITY TO FOLLOW SENSITIVITY RESULT INDICATES AN ORGANISM WITH AN EXTENDED SPECTRUM BETA LACTAMASE.THIS IS CONSIDERED A MULTIDRUG RESISTANT ORGANISM.PHONED TO [facility] ([facility]) ON 07/18/16 AT 0844 BY Noah Chua. Results were verbalized back to ANAID. RESULTS WERE ALSO CALLED TO [facility] INFECTION CONTROL ANSWERING MACHINE ON 07/18/16 BY ANAID. 1. ESCHERICHIA COLI Target Route Dose RX AB Cost M.I.C. IQ ------ ----- ------ -- ------ -------- - ------ TRIMET/SULFA S <=2/38 AMPICILLIN R >16 AMPICILLIN/SUL R >16/8 CEFAZOLIN R >16 CEFOTAXIME R >32 CEFTRIAXONE R >32 CEFEPIME R >16 CEFUROXIME R >16 IMIPENEM S <=1 GENTAMICIN S <=4 TOBRAMYCIN S <=4 AMIKACIN S <=16 CIPROFLOXACIN R >2 LEVOFLOXACIN R >4 ERTAPENEM S <=1 NITROFURANTOIN S <=32 PIP/TAZO S <=16 Assessment & Plan Assessment 71 year old female with h/o CKD III admitted with suspected sepsis, UTI. Preliminary culture results - GPC and GNB in 1/2 blood cultures MDR E.coli ( ESBL+) in urine Plan Vancomycin + Primaxin IV for treatment of sepsis and E.coli (ESBL+) UTI. Vancomycin IV * Patient received a loading dose of 2000 mg (26 mg/kg) IV on 07/17 at 0952. * Vancomycin order was discontinued on 07/17 pm by Hospitalist and then re- started by ID today. * Initiate maintenance dose of 1250 mg IV (16 mg/kg) every 16 hours * Goal trough level for sepsis: 15 to 20 mcg/mL * Trough level ordered for 07/21/16 - ordered prior to fifth dose for a better idea of steady state concentration since time between loading dose and second dose was > 24 hours. Primaxin * Continue 300 mg IV every 6 hours for CrCl 30-59 ml/min (based on target dose of 500 mg q6) * will increase to 400 mg IV every 6 hours if CrCl remains greater than 60 ml/ min x 48 hours * If GNB in BC results as same species in urine, consider de-escalation to Invanz 1 g IV daily. Pharmacy will continue to follow and will adjust dose/frequency as necessary. Thank you
[2016-07-18] MEDS: VANCOMYCIN INJ 1,250 MG in SODIUM CHLORIDE 0.9% 250ML 250 ML IV SCH (13:51)
--- NOTE | 2016-07-18 14:09 | Progress Note ---
Internal Med Progress Note Date of Service: Jul 18, 2016. Provider Documentation: SUBJECTIVE: sitting on the chair comfortably says has neck parth and right arm pain denies chest pain or sob afebrile OBJECTIVE: Vital Signs-as noted below Exam: General-Alert and oriented ENT-normal hearing Neck-no neck masses Lungs-cta b/l no wheezing or crackles Heart-s1 and s2 heard regular rate and rhythm no murmurs Abdomen-soft bowel sounds present non tender no distension Extremities-no edema no erythema Neuro-Alert and oriented moves extremities Lab data as noted below. ASSESSMENT & PLAN: SEPSIS IN THE SETTING OF UTI and QUIANA on presentation, patient was hypothermic with WBC 16K, HR and BP stable, lactic acid normal ux esbl currently on Invanz one blood cx gm positive cocci mostly contaminant recited a dose of iv vanco await final blood cx ID on board. FALL, LIKELY MECHANICAL CT head shows a small hyperdense focus that is likely artifact, however a small hemorrhage is possible repeat CT head shows decreased focus, again possibly reflecting artifact vs resolving focus of hemorrhage PT?OT recommends rehab plan for placement QUIANA ON CKD STAGE III creatinine 1.4 on admission resolved continue gentle fluids f/u labs HTN will monitor Diamox and losartan on hold. DM hgb a1c 5.4 04/2016 Holding oral agents and utilize SSI while hospitalized COPD stable on home inhalers HYPOTHYROIDISM on levothyroxine DVT PROPHYLAXIS SCDs due to scalp hematoma / multiple abrasions CODE STATUS full code DISPOSITION pt/ot recommends rehab 'social service for d/c planning Vital Signs: Date Time Temp Pulse Resp B/P Pulse Ox O2 Delivery O2 Flow Rate FiO2 07/18/16 08:00 Room Air 07/18/16 07:22 36.9 71 18 108/67 97 Room Air 07/18/16 00:36 36.8 91 20 137/78 100 Room Air 07/18/16 00:00 Room Air 07/17/16 16:00 96 Room Air 07/17/16 15:05 36.9 79 18 116/76 96 Room Air Lab Results: Results Past 24 Hours Test 07/17/16 16:14 07/17/16 20:54 07/18/16 06:35 07/18/16 07:37 Range/Units Bedside Glucose 83 95 88 70-90 mg/dl White Blood Count 12.60 4.8-10.8 K/uL Red Blood Count 3.47 4.2-5.4 M/uL Hemoglobin 9.8 12.0-16.0 g/dL Hematocrit 28.8 37-47 % Mean Corpuscular Volume 83.0 80-100 fL Mean Corpuscular Hemoglobin 28.2 25-34 pg Mean Corpuscular Hemoglobin Concent 34.0 32-36 g/dl RDW Standard Deviation 46.5 36.4-46.3 fL RDW Coefficient of Variation 15.2 11.5-14.5 % Platelet Count 178 130-400 K/uL Mean Platelet Volume 10.9 7.4-10.4 fL Sodium Level 139 136-145 mmol/L Potassium Level 3.4 3.5-5.1 mmol/L Chloride Level 111 98-107 mmol/L Carbon Dioxide Level 18 21-32 mmol/L Anion Gap 10.0 3-11 mmol/L Blood Urea Nitrogen 39 7-18 mg/dl Creatinine 0.81 0.60-1.20 mg/dl Est Creatinine Clear Calc Drug Dose 62.4 ml/min Estimated GFR () 85.3 Estimated GFR (Non- 73.6 BUN/Creatinine Ratio 47.8 10-20 Random Glucose 91 70-99 mg/dl Calcium Level 7.9 8.5-10.1 mg/dl Magnesium Level 1.9 1.8-2.4 mg/dl Test 07/18/16 11:24 Range/Units Bedside Glucose 96 70-90 mg/dl
[2016-07-18 14:55] VITALS: BP 116/70; PULSE 71; TEMP 36.6; O2SAT 96
[2016-07-18] MEDS: CETIRIZINE HCL 10 MG TAB PO SCH (20:59)
[2016-07-18 23:23] VITALS: BP 101/64; PULSE 70; TEMP 37; O2SAT 96
[2016-07-19] MEDS: IMIPENEM/CILASTATIN IV 300 MG in DEXTROSE 5% 100ML 100 ML IV SCH ×2 (02:53→08:50)
[2016-07-19] MEDS: VANCOMYCIN INJ 1,250 MG in SODIUM CHLORIDE 0.9% 250ML 250 ML IV SCH (05:45)
[2016-07-19] MEDS: LEVOTHYROXINE 75 MCG TAB PO SCH (05:45)
[2016-07-19] MEDS: UMECLIDINIUM-VILANTEROL (ANORO) INH SCH (05:46)
[2016-07-19 07:39] VITALS: BP 113/50; PULSE 75; TEMP 36.9; O2SAT 97
[2016-07-19 07:42] LABS: HEMATOCRIT 27.2 % (37-47); MEAN CELL VOLUME 84.2 fL (80-100); MEAN CORPUSCULAR HEMOGLOBIN 28.2 pg (25-34); MEAN CORPUSCULAR HGB CONC 33.5 g/dl (32-36); PLATELET COUNT 196 K/uL (130-400); RED BLOOD COUNT 3.23 M/uL (4.2-5.4)
[2016-07-19 08:02] LABS: BASO ABS # 0.12 K/uL (0-0.2); BASOPHIL % 0.9 %; COMPLETE YES; EOSINOPHIL % 3.5 %; LYMPH ABS # 1.59 K/uL (1.2-3.4); LYMPHOCYTE % 12.2 %; MYELOCYTE % 6.1 %
[2016-07-19 08:16] LABS: BUN/CREATININE RATIO 35.8 (10-20); CREATININE 0.77 mg/dl (0.60-1.20); POTASSIUM 3.7 mmol/L (3.5-5.1)
[2016-07-19 08:30] LABS: CALCIUM 7.7 mg/dl (8.5-10.1)
[2016-07-19] MEDS: PRAVASTATIN SOD 20 MG TAB PO SCH (08:32)
[2016-07-19] MEDS: CALCITRIOL 0.25 MCG CAP PO SCH (08:32)
[2016-07-19] MEDS: SERTRALINE HCL 50 MG TAB PO SCH (08:32)
[2016-07-19] MEDS: INSULIN ASPART 100 UNITS/ML 3 ML PEN SC SCH ×4 (08:37→20:43)
--- NOTE | 2016-07-19 11:28 | Progress Note ---
Subjective Date of Service: Jul 19, 2016. Subjective blood culture with E. coli as well, sensitive to carbapenems, also with enterococcus, sensitivity pending. afebrile. for d/c to rehab. repeat blood cultures negative, wbc unchanged. tolerating abx. Problem List Medical Problems: (1) Closed head injury Status: Acute (2) Dehydration Status: Acute (3) Fall Status: Acute (4) Hypothermia Status: Acute (5) Pressure ulcer Status: Acute (6) Rhabdomyolysis Status: Acute (7) UTI (urinary tract infection) Status: Acute Objective Vital Signs Date Time Temp Pulse Resp B/P Pulse Ox O2 Delivery O2 Flow Rate FiO2 07/19/16 08:00 Room Air 07/19/16 07:39 36.9 75 18 113/50 97 Room Air 07/19/16 00:00 Room Air 07/18/16 23:23 37.0 70 19 101/64 96 Room Air 07/18/16 20:35 Room Air 07/18/16 14:55 36.6 71 18 116/70 96 Room Air Laboratory Results Item Value Date Time Blood Culture - Preliminary Resulted 07/16/16 1600 Blood Enterococcus Species Urine Culture - Final Complete 07/16/16 1622 Urine,Catheterized Escherichia Coli Blood Culture - Preliminary Resulted 07/17/16 0920 Blood NO GROWTH TO DATE. Blood Culture - Preliminary Resulted 07/17/16 0920 Blood NO GROWTH TO DATE. Last 24 Hours Test 07/18/16 16:25 07/18/16 20:13 07/19/16 06:56 07/19/16 07:25 Bedside Glucose 99 mg/dl 105 mg/dl 87 mg/dl White Blood Count 13.00 K/uL Red Blood Count 3.23 M/uL Hemoglobin 9.1 g/dL Hematocrit 27.2 % Mean Corpuscular Volume 84.2 fL Mean Corpuscular Hemoglobin 28.2 pg Mean Corpuscular Hemoglobin Concent 33.5 g/dl Platelet Count 196 K/uL Mean Platelet Volume 11.0 fL RDW Standard Deviation 47.6 fL RDW Coefficient of Variation 15.3 % Neutrophils % (Manual) 73.0 % Lymphocytes % (Manual) 12.2 % Monocytes % (Manual) 4.3 % Eosinophils % (Manual) 3.5 % Basophils % (Manual) 0.9 % Myelocytes % 6.1 % Neutrophils # (Manual) 9.49 K/uL Total Absolute Neutrophils 9.49 K/uL Lymphocytes # (Manual) 1.59 K/uL Total Absolute Lymphocytes 1.59 K/uL Monocytes # (Manual) 0.56 K/uL Eosinophils # (Manual) 0.46 K/uL Basophils # (Manual) 0.12 K/uL Myelocytes # 0.79 K/uL Sodium Level 143 mmol/L Potassium Level 3.7 mmol/L Chloride Level 113 mmol/L Carbon Dioxide Level 20 mmol/L Anion Gap 10.0 mmol/L Blood Urea Nitrogen 28 mg/dl Creatinine 0.77 mg/dl Est Creatinine Clear Calc Drug Dose 65.6 ml/min Estimated GFR () 90.7 Estimated GFR (Non- 78.2 BUN/Creatinine Ratio 35.8 Random Glucose 90 mg/dl Calcium Level 7.7 mg/dl Total Creatine Kinase 145 U/L Assessment and Plan (1) Polymicrobial sepsis Assessment & Plan: spoke with primary, changed to ertapenem, agree with this. will await final culture result regarding enterococcus and adjust as needed. will need 14 days total from first negative culture, 07/17 culture negative to date. (2) UTI (urinary tract infection) Problem Qualifiers (1) UTI (urinary tract infection): Urinary tract infection type: acute cystitis Hematuria presence: without hematuria Qualified Codes: N30.00 - Acute cystitis without hematuria
[2016-07-19] MEDS: SODIUM CHLORIDE 0.9% 1000ML 1,000 ML IV SCH (11:40)
[2016-07-19] MEDS ORDERED: INVANZ PHARMACY CONSULT IN PROGRESS PRN (11:45)
--- NOTE | 2016-07-19 11:55 | Surgery Consultation ---
Consultation Date of Consultation: Jul 19, 2016. Attending Physician: Semaj Nowak MD Reason for Consultation: Erythematous changes of the right breast (Yana Lopez PA-C) History of Present Illness Myriam is a pleasant 71 year-old female who presented to emergency room on Sunday s/p a fall at home on Sunday in which she was not found until 3 days later by her sister. Myriam states she went to place remote on lower table and when she went to get back up went to fast and lost her balance. States she did not have any dizziness, lightheadedness, chest pain, shortness of breath, near syncope or syncope. She was admitted and had a work up including CXR, CT scan of head, Xray of pelvis and hip which showed no pneumothorax, significant head trauma, or fracture in the femur, pelvis, or hip. Our services were consulted for some erythematous changes of the right breast and slight drainage. Myriam denies of any problems with her breasts prior to the fall. Denies of any lumps , bumps, cysts, or abscess. States she had her last mammogram last year which was normal. Does not do self breast examination. States she notices discomfort of the right breast but denies severe pain, redness, or swelling. States it is really bruised. US of the right breast was ordered. (Yana Lopez PA-C) Past Medical/Surgical History Medical Problems: (1) Closed head injury Status: Acute (2) Dehydration Status: Acute (3) Fall Status: Acute (4) Hypothermia Status: Acute (5) Pressure ulcer Status: Acute (6) Rhabdomyolysis Status: Acute (7) UTI (urinary tract infection) Status: Acute (Yana Lopez PA-C) Family History FH: colon cancer SISTER (Yana Lopez PA-C) FH: colon cancer SISTER (Jb Mckee M.D.) Social History Smoking Status: Former Smoker Alcohol Use: none (Yana Lopez PA-C) Allergies Coded Allergies: Penicillins (Verified Allergy, Unknown, ., 07/16/16) Home Medications Scheduled Acetaminophen (Tylenol Arthritis Ext Rel), 650 MG PO DAILY Acetazolamide (Acetazolamide), 250 MG PO TID Albuterol Sulfate (Proair Respiclick), 2 PUFF INH QID Alendronate Sodium (Fosamax), 70 MG PO WK Aspirin (Aspirin Chewable), 81 MG PO DAILY Calcitriol (Rocaltrol Cap), 0.25 MCG PO MWF Calcium Citrate-Vitamin D (Citracal + D3 Maximum), 1 TAB PO DAILY Cetirizine Hcl (Zyrtec), 5 MG PO DAILY Docusate Sodium (Colace Clear), 1 CAP PO DAILY Fluticasone Propionate (Nasal) (Flonase Allergy Relief), 2 SPRAYS MARI DAILY Levothyroxine Sodium (Levothyroxine Sodium), 1 TAB PO DAILY Lisinopril (Zestril), 2.5 MG PO DAILY Losartan Potassium (Cozaar), 1 TAB PO DAILY Metformin Hcl (Glucophage), 500 MG PO BID Pravastatin (Pravachol ), 20 MG PO DAILY Sertraline (Zoloft), 50 MG PO DAILY Umeclidinium-Vilanterol (Anoro Ellipta 62.5-25 Mcg/INH), 1 PUFFS INH DAILYBB Scheduled PRN Aluminum Hydroxide-Mag Trisil (Gaviscon), 2-4 TAB PO QID PRN for GI Upset Current Inpatient Medications Current Inpatient Medications Medications (Trade) Dose Ordered Sig/Kwabena Route Start Time Stop Time Status Last Admin Dose Admin Acetaminophen (Tylenol Tab) 650 mg Q4H PRN PO 07/16/16 19:15 08/15/16 19:14 07/18/16 16:16 650 MG Ondansetron HCl (Zofran Inj) 4 mg Q6H PRN IV 07/16/16 19:15 08/15/16 19:14 07/18/16 11:45 4 MG Calcitriol (Rocaltrol Cap) 0.25 mcg MoWeFr@0900 PO 07/17/16 09:00 08/16/16 08:59 07/19/16 08:32 0.25 MCG Levothyroxine Sodium (Synthroid Tab) 75 mcg DAILYBB PO 07/17/16 06:00 08/16/16 05:59 07/19/16 05:45 75 MCG Pravastatin Sodium (Pravachol Tab) 20 mg DAILY PO 07/17/16 09:00 08/16/16 08:59 07/19/16 08:32 20 MG Sertraline HCl (Zoloft Tab) 50 mg DAILY PO 07/17/16 09:00 08/16/16 08:59 07/19/16 08:32 50 MG Albuterol (Ventolin Hfa Inhaler) 2 puffs QID PRN INH 07/16/16 19:45 08/15/16 19:44 Insulin Aspart (novoLOG ASPART) SLIDING SCALE If C... ACHS SC 07/16/16 21:00 08/15/16 20:59 07/19/16 08:37 2 UNITS Glucose (Glucose 40% Gel) 15-30 GRAMS 15 GRAMS... UD PRN PO 07/16/16 20:00 08/15/16 19:59 Glucose (Glucose Chew Tab) 4-8 Tablets 4 Tabl... UD PRN PO 07/16/16 20:00 08/15/16 19:59 Dextrose (Dextrose 50% 50ML Syringe) 25-50ML OF 50% DW IV FOR... UD PRN IV 07/16/16 20:00 08/15/16 19:59 Glucagon 1 mg 1 mg UD PRN SQ 07/16/16 20:00 08/15/16 19:59 Sodium Chloride (Nss 1000ml) 1,000 ml @ 75 mls/hr [id number] IV 07/18/16 09:15 08/17/16 09:14 07/19/16 11:40 75 MLS/HR Cetirizine HCl 10 mg 10 mg HS PO 07/18/16 21:00 08/17/16 20:59 07/18/16 20:59 10 MG Vancomycin HCl/ Sodium Chloride (Vancomycin Inj/ Nss 250ml) 275 ml @ 125 mls/hr Q16H IV 07/18/16 13:00 08/01/16 12:59 07/19/16 05:45 125 MLS/HR Vancomycin HCl 1 ea 1 ea DAILY PRN N/A 07/18/16 12:30 08/17/16 12:29 Ertapenem/Sodium Chloride (Invanz Iv/Nss Ad-Van 50ml) 50 ml @ 120 mls/hr Q24H IV 07/19/16 14:00 07/26/16 13:59 Miscellaneous Information 1 ea UD PRN N/A 07/19/16 11:45 08/18/16 11:44 (Yana Lopez ., PA-C) Review of Systems Constitutional: No chills, No fever, No sweats Eyes: No worsening of vision Respiratory: No shortness of breath Cardiovascular: + problem reported (some pain of the lateral right breast), No chest pain Abdomen: No nausea, No pain, No vomiting Neurologic: + balance problems (lost balance which caused the fall), No memory loss, No numbness/tingling Endocrine: + fatigue Hematologic / Lymphatic: No abnormal bleeding/bruising Integumentary: No itch, No rash (Yana Lopez ., PA-C) Physical Exam Date Time Temp Pulse Resp B/P Pulse Ox O2 Delivery O2 Flow Rate FiO2 07/19/16 08:00 Room Air 07/19/16 07:39 36.9 75 18 113/50 97 Room Air 07/19/16 00:00 Room Air 07/18/16 23:23 37.0 70 19 101/64 96 Room Air 07/18/16 20:35 Room Air 07/18/16 14:55 36.6 71 18 116/70 96 Room Air Right Breast Examination: about 10 cm diameter of ecchymosis of the lateral right breast involving the lateral portion of the nipple +induration but no fluctuance, no palpable mass, no drainage or examination, no streaking, very mild tenderness on palpation. There was no drainage present on the dressing when removed General Appearance: WD/WN, no apparent distress Head: normocephalic, atraumatic Eyes: sclerae normal ENT: hearing grossly normal Neck: supple, no adenopathy, trachea midline Respiratory/Chest: lungs clear, normal breath sounds, no respiratory distress, no accessory muscle use Cardiovascular: regular rate, rhythm, no murmur Abdomen/GI: normal bowel sounds, soft, no organomegaly Neurologic/Psych: alert, normal mood/affect, oriented x 3, + pertinent finding (gait steady from chair to bed ) Skin: normal color, warm/dry, no rash, + pertinent finding (about a 10 cm diameter of ecchymosis of the right breast surrounding lateral aspect of nipple. No drainage on my examination and on palpation. No cellulitis or streaking. No fluctuance slight induration most likely hematoma) (Yana Lopez ., PA-C) Laboratory Results Last 24 Hours Test 07/18/16 16:25 07/18/16 20:13 07/19/16 06:56 07/19/16 07:25 Bedside Glucose 99 mg/dl 105 mg/dl 87 mg/dl White Blood Count 13.00 K/uL Red Blood Count 3.23 M/uL Hemoglobin 9.1 g/dL Hematocrit 27.2 % Mean Corpuscular Volume 84.2 fL Mean Corpuscular Hemoglobin 28.2 pg Mean Corpuscular Hemoglobin Concent 33.5 g/dl Platelet Count 196 K/uL Mean Platelet Volume 11.0 fL RDW Standard Deviation 47.6 fL RDW Coefficient of Variation 15.3 % Neutrophils % (Manual) 73.0 % Lymphocytes % (Manual) 12.2 % Monocytes % (Manual) 4.3 % Eosinophils % (Manual) 3.5 % Basophils % (Manual) 0.9 % Myelocytes % 6.1 % Neutrophils # (Manual) 9.49 K/uL Total Absolute Neutrophils 9.49 K/uL Lymphocytes # (Manual) 1.59 K/uL Total Absolute Lymphocytes 1.59 K/uL Monocytes # (Manual) 0.56 K/uL Eosinophils # (Manual) 0.46 K/uL Basophils # (Manual) 0.12 K/uL Myelocytes # 0.79 K/uL Sodium Level 143 mmol/L Potassium Level 3.7 mmol/L Chloride Level 113 mmol/L Carbon Dioxide Level 20 mmol/L Anion Gap 10.0 mmol/L Blood Urea Nitrogen 28 mg/dl Creatinine 0.77 mg/dl Est Creatinine Clear Calc Drug Dose 65.6 ml/min Estimated GFR () 90.7 Estimated GFR (Non- 78.2 BUN/Creatinine Ratio 35.8 Random Glucose 90 mg/dl Calcium Level 7.7 mg/dl Total Creatine Kinase 145 U/L (Yana Lopez PA-C) Assessment & Plan S/p Fall Right breast Ecchymosis with hematoma -slight induration - no fluctuance to suggest abscess - no streaking or cellulitis - very mild tenderness to palpation - no drainage on my examination. Plan: await results of the breast ultrasound to determine further treatment Continue Optifoam dressing in meantime Continue current management established by medicine service will continue to monitor I have discussed this patient with Dr. Mckee who is in agreement with above stated findings and treatment plan. (Yana Lopez ., PARUL) Seen and examined. Agree with above (Jb Mckee M.D.)
[2016-07-19] MEDS: ERTAPENEM IV 1 GM in SODIUM CHLOR 0.9% AD-VAN 50ML 50 ML IV SCH (14:08)
[2016-07-19 14:51] VITALS: BP 100/50; PULSE 84; TEMP 36.7; O2SAT 97
[2016-07-19] MEDS ORDERED: VANCOMYCIN TROUGH SCH (15:30)
--- NOTE | 2016-07-19 17:35 | Progress Note ---
Internal Med Progress Note Date of Service: Jul 19, 2016. Provider Documentation: SUBJECTIVE: sitting on the chair comfortably has some right shoulder pain has erythematous rash on her right breast afebrile no sob OBJECTIVE: Vital Signs-as noted below Exam: General-Alert and oriented ENT-normal hearing Neck-no neck masses Lungs-cta b/l no wheezing or crackles Heart-s1 and s2 heard regular rate and rhythm no murmurs Abdomen-soft bowel sounds present non tender no distension Extremities-no edema no erythema Breast erythematous rash on right breast involving nipple Neuro-Alert and oriented moves extremities Lab data as noted below. ASSESSMENT & PLAN: SEPSIS IN THE SETTING OF UTI and QUIANA on presentation, patient was hypothermic with WBC 16K, HR and BP stable, lactic acid normal ux esbl currently on Invanz one blood cx gm positive cocci mostly contaminant one blood cx positive for e.coli and enterococcus plan for 14 days of Invanz plan for picc line FALL, LIKELY MECHANICAL CT head shows a small hyperdense focus that is likely artifact, however a small hemorrhage is possible repeat CT head shows decreased focus, again possibly reflecting artifact vs resolving focus of hemorrhage PT?OT recommends rehab plan for placement Right breast erythema' mostly from fall outpatient mammogram and ultrasound appreciate surgery inputs. QUIANA ON CKD STAGE III creatinine 1.4 on admission resolved continue gentle fluids f/u labs HTN will monitor Diamox and losartan on hold. DM hgb a1c 5.4 04/2016 Holding oral agents and utilize SSI while hospitalized COPD stable on home inhalers HYPOTHYROIDISM on levothyroxine DVT PROPHYLAXIS SCDs due to scalp hematoma / multiple abrasions CODE STATUS full code DISPOSITION pt/ot recommends rehab 'social service for d/c planning Plan for rehab soon Vital Signs: Date Time Temp Pulse Resp B/P Pulse Ox O2 Delivery O2 Flow Rate FiO2 07/19/16 14:51 36.7 84 18 100/50 97 Room Air 07/19/16 08:00 Room Air 07/19/16 07:39 36.9 75 18 113/50 97 Room Air 07/19/16 00:00 Room Air 07/18/16 23:23 37.0 70 19 101/64 96 Room Air 07/18/16 20:35 Room Air Lab Results: Results Past 24 Hours Test 07/18/16 20:13 07/19/16 06:56 07/19/16 07:07/19/16 11:14 Range/Units Bedside Glucose 105 87 100 70-90 mg/dl White Blood Count 13.00 4.8-10.8 K/uL Red Blood Count 3.23 4.2-5.4 M/uL Hemoglobin 9.1 12.0-16.0 g/dL Hematocrit 27.2 37-47 % Mean Corpuscular Volume 84.2 80-100 fL Mean Corpuscular Hemoglobin 28.2 25-34 pg Mean Corpuscular Hemoglobin Concent 33.5 32-36 g/dl Platelet Count 196 130-400 K/uL Mean Platelet Volume 11.0 7.4-10.4 fL RDW Standard Deviation 47.6 36.4-46.3 fL RDW Coefficient of Variation 15.3 11.5-14.5 % Neutrophils % (Manual) 73.0 % Lymphocytes % (Manual) 12.2 % Monocytes % (Manual) 4.3 % Eosinophils % (Manual) 3.5 % Basophils % (Manual) 0.9 % Myelocytes % 6.1 % Neutrophils # (Manual) 9.49 1.4-6.5 K/uL Total Absolute Neutrophils 9.49 1.4-6.5 K/uL Lymphocytes # (Manual) 1.59 1.2-3.4 K/uL Total Absolute Lymphocytes 1.59 1.2-3.4 K/uL Monocytes # (Manual) 0.56 0.11-0.59 K/uL Eosinophils # (Manual) 0.46 0-0.5 K/uL Basophils # (Manual) 0.12 0-0.2 K/uL Myelocytes # 0.79 0-0 K/uL Sodium Level 143 136-145 mmol/L Potassium Level 3.7 3.5-5.1 mmol/L Chloride Level 113 98-107 mmol/L Carbon Dioxide Level 20 21-32 mmol/L Anion Gap 10.0 3-11 mmol/L Blood Urea Nitrogen 28 7-18 mg/dl Creatinine 0.77 0.60-1.20 mg/dl Est Creatinine Clear Calc Drug Dose 65.6 ml/min Estimated GFR () 90.7 Estimated GFR (Non- 78.2 BUN/Creatinine Ratio 35.8 10-20 Random Glucose 90 70-99 mg/dl Calcium Level 7.7 8.5-10.1 mg/dl Total Creatine Kinase 145 26-192 U/L Test 07/19/16 16:33 Range/Units Bedside Glucose 91 70-90 mg/dl
[2016-07-19] MEDS: CETIRIZINE HCL 10 MG TAB PO SCH (20:43)
[2016-07-19 23:42] VITALS: BP 114/72; PULSE 78; TEMP 36.9; O2SAT 97
[2016-07-20] MEDS: SODIUM CHLORIDE 0.9% 1000ML 1,000 ML IV SCH (01:00)
[2016-07-20] MEDS: LEVOTHYROXINE 75 MCG TAB PO SCH (05:50)
[2016-07-20] MEDS: UMECLIDINIUM-VILANTEROL (ANORO) INH SCH (05:50)
[2016-07-20 07:45] VITALS: BP 117/71; PULSE 79; TEMP 36.8; O2SAT 96
--- NOTE | 2016-07-20 08:07 | Surgery Progress Note ---
Surgery Progress Note Date of Service Jul 20, 2016. Subjective Post OP Day: HD 5 + bowel movement, + complaints (minimal pain in right breast), + feeling well Objective Vital Signs: Date Time Temp Pulse Resp B/P Pulse Ox O2 Delivery O2 Flow Rate FiO2 07/20/16 07:45 36.8 79 18 117/71 96 Room Air 07/20/16 00:00 Room Air 07/19/16 23:42 36.9 78 16 114/72 97 Room Air 07/19/16 17:34 Room Air 07/19/16 14:51 36.7 84 18 100/50 97 Room Air General Appearance: WD/WN, no apparent distress Head: normocephalic, atraumatic Neck: supple, trachea midline Respiratory/Chest: lungs clear Cardiovascular: regular rate, rhythm Abdomen: normal bowel sounds, non tender, non distended, soft Incision(s): findings (right breast with resolving hematoma; no fluctuance or other sign of an abscess) Extremities: no pedal edema Laboratory Results: Results Past 24 Hours Test 07/19/16 11:14 07/19/16 16:33 07/19/16 20:17 07/20/16 07:23 Range/Units Bedside Glucose 100 91 108 70-90 mg/dl Test 07/20/16 07:37 Range/Units Bedside Glucose 93 70-90 mg/dl Assessment & Plan Right breast hematoma -local care w/warm compresses -no surgical issues -will sign off
[2016-07-20 08:12] LABS: HEMATOCRIT 30.9 % (37-47); MEAN CORPUSCULAR HEMOGLOBIN 27.4 pg (25-34); MEAN CORPUSCULAR HGB CONC 32.7 g/dl (32-36); MEAN PLATELET VOLUME 10.1 fL (7.4-10.4); PLATELET COUNT 239 K/uL (130-400); RED BLOOD COUNT 3.68 M/uL (4.2-5.4); WHITE BLOOD COUNT 17.09 K/uL (4.8-10.8)
[2016-07-20 08:32] LABS: BASO ABS # 0.15 K/uL (0-0.2); BASOPHIL % 0.9 %; COMPLETE YES; EOSINOPHIL % 0.9 %; LYMPH ABS # 2.08 K/uL (1.2-3.4); LYMPHOCYTE % 12.2 %; MYELOCYTE % 2.6 %; NEUTROPHILS % 75.5 %
[2016-07-20 08:51] LABS: BUN/CREATININE RATIO 23.4 (10-20); CREATININE 0.76 mg/dl (0.60-1.20); POTASSIUM 4.1 mmol/L (3.5-5.1)
[2016-07-20] MEDS: PRAVASTATIN SOD 20 MG TAB PO SCH (08:51)
[2016-07-20] MEDS: SERTRALINE HCL 50 MG TAB PO SCH (08:51)
[2016-07-20] MEDS: INSULIN ASPART 100 UNITS/ML 3 ML PEN SC SCH ×4 (08:54→21:00)
[2016-07-20 09:03] LABS: CALCIUM 8.1 mg/dl (8.5-10.1)
[2016-07-20] MEDS: AcetaZOLAMIDE 250 MG TAB PO SCH ×3 (09:32→21:40)
[2016-07-20] MEDS: LACTOBACILLUS ACIDOPHILUS (FLORANEX) TAB PO SCH ×2 (12:18→17:35)
[2016-07-20] MEDS: ERTAPENEM IV 1 GM in SODIUM CHLOR 0.9% AD-VAN 50ML 50 ML IV SCH (14:24)
--- NOTE | 2016-07-20 14:24 | Progress Note ---
Subjective Date of Service: Jul 20, 2016. Subjective 07/17 blood cultures negative to date x 2. Initial blood culture with E. coli and hurt sensitive e. faecalis, now final. vanco stopped. s/p eval for breast hematoma. wbc increased today, remains afebrile. Problem List Medical Problems: (1) Closed head injury Status: Acute (2) Dehydration Status: Acute (3) Fall Status: Acute (4) Hypothermia Status: Acute (5) Pressure ulcer Status: Acute (6) Rhabdomyolysis Status: Acute (7) UTI (urinary tract infection) Status: Acute Objective Vital Signs Date Time Temp Pulse Resp B/P Pulse Ox O2 Delivery O2 Flow Rate FiO2 07/20/16 08:00 Room Air 07/20/16 07:45 36.8 79 18 117/71 96 Room Air 07/20/16 00:00 Room Air 07/19/16 23:42 36.9 78 16 114/72 97 Room Air 07/19/16 17:34 Room Air 07/19/16 14:51 36.7 84 18 100/50 97 Room Air Laboratory Results Last 24 Hours Test 07/19/16 16:33 07/19/16 20:17 07/20/16 07:37 07/20/16 08:00 Bedside Glucose 91 mg/dl 108 mg/dl 93 mg/dl White Blood Count 17.09 K/uL Red Blood Count 3.68 M/uL Hemoglobin 10.1 g/dL Hematocrit 30.9 % Mean Corpuscular Volume 84.0 fL Mean Corpuscular Hemoglobin 27.4 pg Mean Corpuscular Hemoglobin Concent 32.7 g/dl Platelet Count 239 K/uL Mean Platelet Volume 10.1 fL RDW Standard Deviation 47.7 fL RDW Coefficient of Variation 15.5 % Neutrophils % (Manual) 75.5 % Lymphocytes % (Manual) 12.2 % Monocytes % (Manual) 0.9 % Eosinophils % (Manual) 0.9 % Basophils % (Manual) 0.9 % Metamyelocytes % 7.0 % Myelocytes % 2.6 % Neutrophils # (Manual) 12.90 K/uL Total Absolute Neutrophils 12.90 K/uL Lymphocytes # (Manual) 2.08 K/uL Total Absolute Lymphocytes 2.08 K/uL Monocytes # (Manual) 0.15 K/uL Eosinophils # (Manual) 0.15 K/uL Basophils # (Manual) 0.15 K/uL Metamyelocytes # 1.20 K/uL Myelocytes # 0.44 K/uL Red Blood Cell Morphology Unremarkable Sodium Level 142 mmol/L Potassium Level 4.1 mmol/L Chloride Level 113 mmol/L Carbon Dioxide Level 22 mmol/L Anion Gap 7.0 mmol/L Blood Urea Nitrogen 18 mg/dl Creatinine 0.76 mg/dl Est Creatinine Clear Calc Drug Dose 66.5 ml/min Estimated GFR () 92.1 Estimated GFR (Non- 79.5 BUN/Creatinine Ratio 23.4 Random Glucose 91 mg/dl Calcium Level 8.1 mg/dl Test 07/20/16 11:14 Bedside Glucose 123 mg/dl Assessment and Plan (1) Polymicrobial sepsis Assessment & Plan: continue ertapenem, agree with d/c saúl, would add amox 500mg po tid as well. Would give 14 days from first negative culture. stop 07/31, repeat blood cultures negative, ok for picc from ID standpoint. follow cbc. (2) UTI (urinary tract infection) Problem Qualifiers (1) UTI (urinary tract infection): Urinary tract infection type: acute cystitis Hematuria presence: without hematuria Qualified Codes: N30.00 - Acute cystitis without hematuria
[2016-07-20 14:54] VITALS: BP 107/67; PULSE 81; TEMP 37.2; O2SAT 97
--- NOTE | 2016-07-20 15:53 | Progress Note ---
Internal Med Progress Note Date of Service: Jul 20, 2016. Provider Documentation: SUBJECTIVE: sitting on the chair comfortably eating lunch had three episodes of loose bowel movements today morning afebrile otherwise feeling fine OBJECTIVE: Vital Signs-as noted below Exam: General-Alert and oriented ENT-normal hearing Neck-no neck masses Lungs-cta b/l no wheezing or crackles Heart-s1 and s2 heard regular rate and rhythm no murmurs Abdomen-soft bowel sounds present non tender no distension Extremities-no edema no erythema Breast erythematous rash on right breast involving nipple Neuro-Alert and oriented moves extremities Lab data as noted below. ASSESSMENT & PLAN: SEPSIS IN THE SETTING OF UTI and QUIANA on presentation, patient was hypothermic with WBC 16K, HR and BP stable, lactic acid normal ux esbl currently on Invanz one blood cx positive for e.coli and pcn sensitive enterococcus plan for 14 days of Invanz picc line stable FALL, LIKELY MECHANICAL CT head shows a small hyperdense focus that is likely artifact, however a small hemorrhage is possible repeat CT head shows decreased focus, again possibly reflecting artifact vs resolving focus of hemorrhage PT/OT recommends rehab Awaiting placement Right breast erythema' mostly from fall had scheduled for routine mammogram in next few months appreciate surgery inputs. f/u with pcp QUIANA ON CKD STAGE III creatinine 1.4 on admission resolved HTN will monitor Diamox and losartan on hold. restarted Diamox DM hgb a1c 5.4 04/2016 Holding oral agents and utilize SSI while hospitalized COPD stable on home inhalers HYPOTHYROIDISM on levothyroxine DVT PROPHYLAXIS SCDs due to scalp hematoma / multiple abrasions CODE STATUS full code DISPOSITION pt/ot recommends rehab 'social service for d/c planning Plan for rehab in am Vital Signs: Date Time Temp Pulse Resp B/P Pulse Ox O2 Delivery O2 Flow Rate FiO2 07/20/16 14:54 37.2 81 20 107/67 97 Room Air 07/20/16 08:00 Room Air 07/20/16 07:45 36.8 79 18 117/71 96 Room Air 07/20/16 00:00 Room Air 07/19/16 23:42 36.9 78 16 114/72 97 Room Air 07/19/16 17:34 Room Air Lab Results: Results Past 24 Hours Test 07/19/16 16:33 07/19/16 20:17 07/20/16 07:37 07/20/16 08:00 Range/Units Bedside Glucose 91 108 93 70-90 mg/dl White Blood Count 17.09 4.8-10.8 K/uL Red Blood Count 3.68 4.2-5.4 M/uL Hemoglobin 10.1 12.0-16.0 g/dL Hematocrit 30.9 37-47 % Mean Corpuscular Volume 84.0 80-100 fL Mean Corpuscular Hemoglobin 27.4 25-34 pg Mean Corpuscular Hemoglobin Concent 32.7 32-36 g/dl Platelet Count 239 130-400 K/uL Mean Platelet Volume 10.1 7.4-10.4 fL RDW Standard Deviation 47.7 36.4-46.3 fL RDW Coefficient of Variation 15.5 11.5-14.5 % Neutrophils % (Manual) 75.5 % Lymphocytes % (Manual) 12.2 % Monocytes % (Manual) 0.9 % Eosinophils % (Manual) 0.9 % Basophils % (Manual) 0.9 % Metamyelocytes % 7.0 % Myelocytes % 2.6 % Neutrophils # (Manual) 12.90 1.4-6.5 K/uL Total Absolute Neutrophils 12.90 1.4-6.5 K/uL Lymphocytes # (Manual) 2.08 1.2-3.4 K/uL Total Absolute Lymphocytes 2.08 1.2-3.4 K/uL Monocytes # (Manual) 0.15 0.11-0.59 K/uL Eosinophils # (Manual) 0.15 0-0.5 K/uL Basophils # (Manual) 0.15 0-0.2 K/uL Metamyelocytes # 1.20 0-0 K/uL Myelocytes # 0.44 0-0 K/uL Red Blood Cell Morphology Unremarkable Sodium Level 142 136-145 mmol/L Potassium Level 4.1 3.5-5.1 mmol/L Chloride Level 113 98-107 mmol/L Carbon Dioxide Level 22 21-32 mmol/L Anion Gap 7.0 3-11 mmol/L Blood Urea Nitrogen 18 7-18 mg/dl Creatinine 0.76 0.60-1.20 mg/dl Est Creatinine Clear Calc Drug Dose 66.5 ml/min Estimated GFR () 92.1 Estimated GFR (Non- 79.5 BUN/Creatinine Ratio 23.4 10-20 Random Glucose 91 70-99 mg/dl Calcium Level 8.1 8.5-10.1 mg/dl Test 07/20/16 11:14 Range/Units Bedside Glucose 123 70-90 mg/dl Microbiology Results 07/20/16 C.difficile Toxin B Gene (PCR), Received Pending
[2016-07-20] MEDS: ACETAMINOPHEN 325 MG TAB PO PRN (16:42)
[2016-07-20] MEDS: AMOXICILLIN 500 MG CAP PO SCH ×2 (16:42→21:42)
[2016-07-20] MEDS: CETIRIZINE HCL 10 MG TAB PO SCH (21:41)
[2016-07-20 23:09] VITALS: BP 120/75; PULSE 83; TEMP 36.4; O2SAT 95
[2016-07-21] MEDS ORDERED: VANCOMYCIN TROUGH SCH (04:30)
[2016-07-21] MEDS: LEVOTHYROXINE 75 MCG TAB PO SCH (06:05)
[2016-07-21] MEDS: UMECLIDINIUM-VILANTEROL (ANORO) INH SCH (06:05)
[2016-07-21 07:28] VITALS: BP 114/55; PULSE 69; TEMP 36.7; O2SAT 95
[2016-07-21 08:00] VITALS: O2SAT 95
[2016-07-21] MEDS: CALCITRIOL 0.25 MCG CAP PO SCH (08:12)
[2016-07-21] MEDS: AMOXICILLIN 500 MG CAP PO SCH ×2 (08:12→14:21)
[2016-07-21] MEDS: SERTRALINE HCL 50 MG TAB PO SCH (08:13)
[2016-07-21] MEDS: PRAVASTATIN SOD 20 MG TAB PO SCH (08:13)
[2016-07-21] MEDS: LACTOBACILLUS ACIDOPHILUS (FLORANEX) TAB PO SCH ×3 (08:13→16:30)
[2016-07-21] MEDS: AcetaZOLAMIDE 250 MG TAB PO SCH ×2 (08:14→14:22)
[2016-07-21] MEDS: ACETAMINOPHEN 325 MG TAB PO PRN (08:14)
[2016-07-21] MEDS: INSULIN ASPART 100 UNITS/ML 3 ML PEN SC SCH ×2 (08:20→12:38)
[2016-07-21 12:01] LABS: HEMATOCRIT 29.3 % (37-47); MEAN CELL VOLUME 85.9 fL (80-100); MEAN CORPUSCULAR HEMOGLOBIN 27.9 pg (25-34); MEAN CORPUSCULAR HGB CONC 32.4 g/dl (32-36); PLATELET COUNT 252 K/uL (130-400); RED BLOOD COUNT 3.41 M/uL (4.2-5.4); WHITE BLOOD COUNT 17.56 K/uL (4.8-10.8)
--- NOTE | 2016-07-21 12:22 | DIAGNOSTIC IMAGING REPORT ---
RIGHT SHOULDER MIN 2 VIEWS ROUTINE CLINICAL HISTORY: Right shoulder pain status post trauma COMPARISON: None. DISCUSSION: No fractures or dislocations are visualized. There are no visible particular calcifications. A left-sided central venous catheter is visualized. IMPRESSION: No fractures or dislocations identified. Electronically signed by: Isaac Kumari M.D. 07/21/2016 12:21 PM Dictated Date/Time: 07/21/2016 12:20 PM
[2016-07-21 12:37] LABS: COMPLETE YES; EOSINOPHIL % 0.9 %; LYMPH ABS # 3.63 K/uL (1.2-3.4); LYMPHOCYTE % 20.7 %; META ABS # 0.46 K/uL (0-0); METAMYELOCYTE % 2.6 %; MYELOCYTE % 5.2 %; NEUTROPHILS % 67.2 %
[2016-07-21 12:42] LABS: BUN/CREATININE RATIO 24.1 (10-20); CALCIUM 8.2 mg/dl (8.5-10.1); CREATININE 0.81 mg/dl (0.60-1.20)
[2016-07-21] MEDS ORDERED: LCTX PO (13:29)
[2016-07-21] MEDS ORDERED: ERTA1INJ IV (13:29)
[2016-07-21] MEDS ORDERED: AMX500 PO (13:29)
--- NOTE | 2016-07-21 13:33 | Discharge Instructions ---
Discharge Instructions Date of Service Jul 21, 2016. Admission Reason for Admission: FALL Discharge Discharge Diagnosis / Problem: fall. complicated uti, bacteremia Discharge Goals Goal(s): Decrease discomfort, Improve function Activity Recommendations Activity Level: Up Ad [place], Assistance Required Therapies: Physical Therapy, Occupational Therapy . Additional Information Patient informed of condition: Yes Advance Directives: Yes DNR: No Level of Care: Acute Rehab Communicable Disease: No Prognosis: Stable Instructions / Follow-Up Instructions / Follow-Up FOLLOWUP WITH FAMILY DOCTOR IN ONE WEEK BLOOD CULTURES X 2 AND URINE CULTURES ONCE IV ANTIBIOTICS COMPLETED AND IF CULTURES NEGATIVE CAN D/C PICC LINE. LAB: CBC WITH DIFF AND BMP IN ONE WEEK AND FOLLOW RESULTS WITH FAMILY DOCTOR. PATIENT OK TO HAVE AMOXICILLIN.GIVEN IN THE HOSPITAL AND TOLERATING FINE. TO HOLD ASPIRIN FOR QUESTIONABLE SMALL BLEED WITHIN THE LEFT PARIETAL LOBE. RESTART PER FAMILY DOCTOR Current Hospital Diet Patient's current hospital diet: AHA Diet (Heart Healthy), Diabetes Type 2 Diet Discharge Diet Recommended Diet: AHA Diet (Heart Healthy) Pending Studies Studies pending at discharge: no Physician Orders On Transfer Special Precautions: FALL AND ASPIRATION PRECAUTIONS IV Therapy: IV INVANZ 1GM DAILY X 10DAYS Vital Signs: EVERY 8HRS Additional Orders: PATIENT OK TO HAVE AMOXICILLIN.GIVEN IN THE HOSPITAL AND TOLERATING FINE. Medical Emergencies . Who to Call and When: Medical Emergencies: If at any time you feel your situation is an emergency, please call 911 immediately. . Non-Emergent Contact Non-Emergency issues call your: Primary Care Provider . . "Provider Documentation" section prepared by Semaj Nowak. . Core Measure Problem Core Measures: None
[2016-07-21] MEDS: ERTAPENEM IV 1 GM in SODIUM CHLOR 0.9% AD-VAN 50ML 50 ML IV SCH (14:21)
[2016-07-21 14:38] VITALS: BP 114/55; PULSE 69; TEMP 36.7; O2SAT 95
[2016-07-21 15:30] VITALS: O2SAT 95
--- NOTE | 2016-07-21 15:50 | Progress Note ---
Internal Med Progress Note Date of Service: Jul 21, 2016. Provider Documentation: SUBJECTIVE: sitting on the chair comfortably feeling fine ambulating fine lower extremity edema improving had small loose bowel movements has right shoulder pain ok for discharge OBJECTIVE: Vital Signs-as noted below Exam: General-Alert and oriented ENT-normal hearing Neck-no neck masses Lungs-cta b/l no wheezing or crackles Heart-s1 and s2 heard regular rate and rhythm no murmurs Abdomen-soft bowel sounds present non tender no distension Extremities-no edema no erythema Breast erythematous rash on right breast involving nipple Neuro-Alert and oriented moves extremities Lab data as noted below. ASSESSMENT & PLAN: SEPSIS IN THE SETTING OF UTI and QUIANA on presentation, patient was hypothermic with WBC 16K, HR and BP stable, lactic acid normal ux esbl currently on Invanz one blood cx positive for e.coli and pcn sensitive enterococcus plan for 14 days of Invanz and po amoxicillin as per ID picc line stable FALL, LIKELY MECHANICAL CT head shows a small hyperdense focus that is likely artifact, however a small hemorrhage is possible repeat CT head shows decreased focus, again possibly reflecting artifact vs resolving focus of hemorrhage PT/OT recommends rehab HOLDING ASPIRIN. TO RESTART PER FAMILY DOCTOR plan for rehab today Right breast erythema' mostly from fall had scheduled for routine mammogram in next few months appreciate surgery inputs. f/u with pcp QUIANA ON CKD STAGE III creatinine 1.4 on admission resolved HTN will monitor Diamox and lisinopril on hold. restarted Diamox DM hgb a1c 5.4 04/2016 Holding oral agents and utilize SSI while hospitalized COPD stable on home inhalers HYPOTHYROIDISM on levothyroxine Discharged to rehab Vital Signs: Date Time Temp Pulse Resp B/P Pulse Ox O2 Delivery O2 Flow Rate FiO2 07/21/16 15:30 95 Room Air 07/21/16 14:38 36.7 69 20 95 Room Air 07/21/16 08:00 95 Room Air 07/21/16 07:28 36.7 69 20 114/55 95 Room Air 07/21/16 00:00 Room Air 07/20/16 23:09 36.4 83 16 120/75 95 Room Air 07/20/16 18:48 Room Air Lab Results: Results Past 24 Hours Test 07/20/16 20:36 07/21/16 07:43 07/21/16 11:07/21/16 11:43 Range/Units Bedside Glucose 111 87 106 70-90 mg/dl White Blood Count 17.56 4.8-10.8 K/uL Red Blood Count 3.41 4.2-5.4 M/uL Hemoglobin 9.5 12.0-16.0 g/dL Hematocrit 29.3 37-47 % Mean Corpuscular Volume 85.9 80-100 fL Mean Corpuscular Hemoglobin 27.9 25-34 pg Mean Corpuscular Hemoglobin Concent 32.4 32-36 g/dl Platelet Count 252 130-400 K/uL Mean Platelet Volume 10.0 7.4-10.4 fL RDW Standard Deviation 49.4 36.4-46.3 fL RDW Coefficient of Variation 15.9 11.5-14.5 % Neutrophils % (Manual) 67.2 % Lymphocytes % (Manual) 20.7 % Monocytes % (Manual) 3.4 % Eosinophils % (Manual) 0.9 % Metamyelocytes % 2.6 % Myelocytes % 5.2 % Neutrophils # (Manual) 11.80 1.4-6.5 K/uL Total Absolute Neutrophils 11.80 1.4-6.5 K/uL Lymphocytes # (Manual) 3.63 1.2-3.4 K/uL Total Absolute Lymphocytes 3.63 1.2-3.4 K/uL Monocytes # (Manual) 0.60 0.11-0.59 K/uL Eosinophils # (Manual) 0.16 0-0.5 K/uL Metamyelocytes # 0.46 0-0 K/uL Myelocytes # 0.91 0-0 K/uL Red Blood Cell Morphology Unremarkable Sodium Level 140 136-145 mmol/L Potassium Level 4.0 3.5-5.1 mmol/L Chloride Level 112 98-107 mmol/L Carbon Dioxide Level 20 21-32 mmol/L Anion Gap 8.0 3-11 mmol/L Blood Urea Nitrogen 20 7-18 mg/dl Creatinine 0.81 0.60-1.20 mg/dl Est Creatinine Clear Calc Drug Dose 62.4 ml/min Estimated GFR () 85.3 Estimated GFR (Non- 73.6 BUN/Creatinine Ratio 24.1 10-20 Random Glucose 93 70-99 mg/dl Calcium Level 8.2 8.5-10.1 mg/dl
--- NOTE | 2016-07-21 18:02 | Discharge Summary ---
Discharge Summary Date of Service Jul 21, 2016. Discharge Summary Admission Date: Jul 16, 2016 at 18:42 Discharge Date: Jul 21, 2016 Discharge Disposition: Rehab Principal Diagnosis: FALL COMPLICATED UTI BACTEREMIA SEPSIS QUIANA Secondary Diagnoses/Problems: (1) CKD (chronic kidney disease), stage III Status: Chronic (2) COPD, moderate Status: Chronic (3) Depression Status: Chronic (4) DM type 2 (diabetes mellitus, type 2) Status: Chronic (5) Hypothyroidism Status: Chronic Procedures: 07/16/[address]: Small hyperdense focus within the left posterior parietal lobe on image 17. This favors artifact. However, a small cortical contusion/hemorrhage could also have a similar appearance. [address] follow-up is recommended to ensure stability. 07/17/16: 1. Decreased conspicuity of the possible small bleed within the left parietal lobe since head CT of July 16, 2016. This could reflect artifact or a resolving focus of hemorrhage. 2. Otherwise, unchanged appearance of the head. CERVICAL SPINE CT: 1. No evidence of acute fracture or traumatic subluxation. 2. Multilevel degenerative change with suspected multilevel disc protrusions and secondary spinal canal narrowing RIGHT SHOULDER XRAY: No fractures or dislocations identified. Consultations: Infectious disease Medication Reconciliation New Medications: Ertapenem Sodium (Invanz) 1 Gm Inj 1 GM IV DAILY for 10 Days, VIAL Lactobacillus Acidophilus (Lactinex) Tab 4 TAB PO TID for 14 Days, TAB Amoxicillin (Amoxicillin) 500 Mg Cap 500 MG PO TID for 14 Days, #42 CAP Continued Medications: Acetaminophen (Tylenol Arthritis Ext Rel) 650 Mg Cplt 650 MG PO DAILY, CAP Acetazolamide (Acetazolamide) 250 Mg Tab 250 MG PO TID Albuterol Sulfate (Proair Respiclick) 108 Mcg/Act Aer 2 PUFF INH QID Alendronate Sodium (Fosamax) 70 Mg Tab 70 MG PO WK, TAB Aluminum Hydroxide-Mag Trisil (Gaviscon) 1 Chw Chw 2-4 TAB PO QID PRN for GI Upset Aspirin (Aspirin Chewable) 81 Mg Chew 81 MG PO DAILY Calcitriol (Rocaltrol Cap) 0.25 Mcg Cap 0.25 MCG PO MWF, CAP Calcium Citrate-Vitamin D (Citracal + D3 Maximum) 1 Tab Tab 1 TAB PO DAILY Cetirizine Hcl (Zyrtec) 5 Mg Tab 5 MG PO DAILY, TAB Docusate Sodium (Colace Clear) 50 Mg Cap 1 CAP PO DAILY Fluticasone Propionate (Nasal) (Flonase Allergy Relief) 50 Mcg/Act Spr 2 SPRAYS MARI DAILY Levothyroxine Sodium (Levothyroxine Sodium) 75 Mcg Tab 1 TAB PO DAILY for 90 Days, #90 TAB 3 Refills Lisinopril (Zestril) 2.5 Mg Tab 2.5 MG PO DAILY Metformin Hcl (Glucophage) 500 Mg Tab 500 MG PO BID, TAB Pravastatin (Pravachol ) 20 Mg Tab 20 MG PO DAILY, TAB Sertraline (Zoloft) 50 Mg Tab 50 MG PO DAILY, TAB Umeclidinium-Vilanterol (Anoro Ellipta 62.5-25 Mcg/INH) 1 Aer Aer 1 PUFFS INH DAILYBB Discontinued Medications: Losartan Potassium (Cozaar) 25 Mg Tab 1 TAB PO DAILY for 30 Days, #30 TAB 5 Refills Admission Information HPI (per Admitting provider): 71 year old female who presents to the ER after being found on the floor by her sister unable to get up. Patient reports 2 days ago when she got out of bed, she walked into her living room, lost her balance and fell. She was unable to get up. Patient reports some mild lightheadedness with the fall but denies loss of coconsciousness. She did strike her head. Patient reports earlier in the week she was constipated and took a laxative. She then had diarrhea for 3 days. She also reports a few episodes of nausea and vomiting. She denies hematemesis, coffee ground emesis, BRBPR, or dark tarry stools. No abdominal pain. She reports some mild urinary burning a few days prior to the fall. She denies associated chest pain, palpitations, or shortness of breath. Patient was unable to get up for the past two days and was found on the floor by her sister today. Upon arrival to the ER, patient was found to be mildly hypothermic, WBC 16K, mild QUIANA, and CPK 670. U/A suggestive of UTI. BP is stable and lactic acid is normal. Patient was placed on a bear hugger with improvement in temperature. She was also given IVF and Rocephin. Physical Exam (per Admitting): General Appearance: no apparent distress Head: + evidence of trama (left frontal hematoma) Eyes: normal inspection ENT: hearing grossly normal Neck: supple, no JVD Respiratory/Chest: lungs clear, normal breath sounds, no respiratory distress Cardiovascular: regular rate, rhythm, no edema, normal peripheral pulses Abdomen/GI: normal bowel sounds, non tender, soft Extremities/Musculoskelatal: + pertinent finding (reports pain with movement of right knee, hip, and right shoulder) Neurologic/Psych: no motor/sensory deficits, alert, oriented x 3, + pertinent finding (slow to respond at times) Skin: + pertinent finding (wound/ stage III pressure ulcer right knee; stage I pressure ulcer left sacrum) Hospital Course 71F PRESENTS WITH FALL SEPSIS IN THE SETTING OF UTI and QUIANA on presentation, patient was hypothermic with WBC 16K, HR and BP stable, lactic acid normal ux esbl currently on Invanz one blood cx positive for e.coli and pcn sensitive enterococcus plan for 14 days of Invanz and po amoxicillin as per ID picc line stable FALL, LIKELY MECHANICAL CT head shows a small hyperdense focus that is likely artifact, however a small hemorrhage is possible repeat CT head shows decreased focus, again possibly reflecting artifact vs resolving focus of hemorrhage PT/OT recommends rehab plan for rehab today Right breast erythema' mostly from fall had scheduled for routine mammogram in next few months appreciate surgery inputs. f/u with pcp QUIANA ON CKD STAGE III creatinine 1.4 on admission resolved HTN will monitor Diamox and lisinopril on hold. restarted Diamox DM hgb a1c 5.4 04/2016 Holding oral agents and utilize SSI while hospitalized COPD stable on home inhalers HYPOTHYROIDISM on levothyroxine Discharged to rehab Total time spent on discharge = 40MINUTES This includes examination of the patient, discharge planning, medication reconciliation, and communication with other providers. Discharge Instructions Discharge Instructions Date of Service Jul 21, 2016. Admission Reason for Admission: FALL Discharge Discharge Diagnosis / Problem: fall. complicated uti, bacteremia Discharge Goals Goal(s): Decrease discomfort, Improve function Activity Recommendations Activity Level: Up Ad Nikkie, Assistance Required Therapies: Physical Therapy, Occupational Therapy . Additional Information Patient informed of condition: Yes Advance Directives: Yes DNR: No Level of Care: Acute Rehab Communicable Disease: No Prognosis: Stable Instructions / Follow-Up Instructions / Follow-Up FOLLOWUP WITH FAMILY DOCTOR IN ONE WEEK BLOOD CULTURES X 2 AND URINE CULTURES ONCE IV ANTIBIOTICS COMPLETED AND IF CULTURES NEGATIVE CAN D/C PICC LINE. LAB: CBC WITH DIFF AND BMP IN ONE WEEK AND FOLLOW RESULTS WITH FAMILY DOCTOR. PATIENT OK TO HAVE AMOXICILLIN.GIVEN IN THE HOSPITAL AND TOLERATING FINE. TO HOLD ASPIRIN FOR QUESTIONABLE SMALL BLEED WITHIN THE LEFT PARIETAL LOBE. RESTART PER FAMILY DOCTOR Current Hospital Diet Patient's current hospital diet: AHA Diet (Heart Healthy), Diabetes Type 2 Diet Discharge Diet Recommended Diet: AHA Diet (Heart Healthy) Pending Studies Studies pending at discharge: no Physician Orders On Transfer Special Precautions: FALL AND ASPIRATION PRECAUTIONS IV Therapy: IV INVANZ 1GM DAILY X 10DAYS Vital Signs: EVERY 8HRS Additional Orders: PATIENT OK TO HAVE AMOXICILLIN.GIVEN IN THE HOSPITAL AND TOLERATING FINE. Medical Emergencies . Who to Call and When: Medical Emergencies: If at any time you feel your situation is an emergency, please call 911 immediately. . Non-Emergent Contact Non-Emergency issues call your: Primary Care Provider . . "Provider Documentation" section prepared by Semaj Nowak.
[2016-09-04] MEDS ORDERED: ENOX40IN SQ (10:46)
[2016-09-07] MEDS ORDERED: AMOX500T PO (09:32)
[2016-10-23] MEDS ORDERED: MCRB100 PO (11:41)
[2016-10-23] MEDS ORDERED: SLWMEC PO (11:41)
[2016-10-23] MEDS ORDERED: MCRK20 PO (11:41)
[2016-10-31] MEDS ORDERED: CYAN10005 PO (07:59)
[2016-10-31] MEDS ORDERED: FERR1TAB13 PO (07:59)
[2016-11-13] MEDS ORDERED: SENN8.6T7 PO (17:27)
[2016-12-22] MEDS ORDERED: SENN-61 PO (13:03)
[2016-12-22] MEDS ORDERED: UMEC1AER INH (13:03)
[2016-12-22] MEDS ORDERED: MULT-916 PO (13:03)
== END 2016-07-21 17:11 | DRG 871 ==
LOC: ENRESERVTM → ENRESERVDT → EDBD 15:39 → C.EDA 15:43 → C.2T 18:42 → C.MS2W 07-17 13:47
PROVIDERS: ADMIT Hospitalist; ATTEND Internal Medicine
PROC: 02HV33Z Insertion of Infusion Device into Superior Vena Cava, Percutaneous Approach (ICD-10-PCS; principal; 2016-07-19)
DX: A41.9 Sepsis, unspecified organism (principal); L89.893 Pressure ulcer of other site, stage 3; N17.9 Acute kidney failure, unspecified; N30.00 Acute cystitis without hematuria; N18.3 Chronic kidney disease, stage 3 (moderate); E86.0 Dehydration; J44.9 Chronic obstructive pulmonary disease, unspecified; E03.9 Hypothyroidism, unspecified; B96.20 Unspecified Escherichia coli [E. coli] as the cause of diseases classified elsewhere; F32.9 Major depressive disorder, single episode, unspecified; D72.829 Elevated white blood cell count, unspecified; E11.22 Type 2 diabetes mellitus with diabetic chronic kidney disease; S20.01XA Contusion of right breast, initial encounter; I12.9 Hypertensive chronic kidney disease with stage 1 through stage 4 chronic kidney disease, or unspecified chronic kidney disease; T79.6XXA Traumatic ischemia of muscle, initial encounter; T68.XXXA Hypothermia, initial encounter; W17.89XA Other fall from one level to another, initial encounter; B95.2 Enterococcus as the cause of diseases classified elsewhere; S06.300A Unspecified focal traumatic brain injury without loss of consciousness, initial encounter; L53.8 Other specified erythematous conditions; Y92.018 Other place in single-family (private) house as the place of occurrence of the external cause; Z87.891 Personal history of nicotine dependence; Z23 Encounter for immunization; Z79.83 Long term (current) use of bisphosphonates; Z79.82 Long term (current) use of aspirin; Z79.84 Long term (current) use of oral hypoglycemic drugs; Z79.899 Other long term (current) drug therapy; Z79.51 Long term (current) use of inhaled steroids

== ENCOUNTER → 2016-07-28 | Outpatient (CLI) | payer BC ==
[~2016-07-28] MED LIST: ACET-1311 PO; ACET-1325 PO; ACET1TAB84 PO; ALBU18002 INH; ALEN70TA4 PO; ALUMCHW2 PO; AMOX500C3 PO; AMOX500T PO; AMX500 PO; ASCA500 PO; BISA1SUP4 RE; CALC0.2510 PO; CALC1TAB9 PO; CETI5TAB5 PO; CYAN10005 PO; CZR25 PO; DOCU50CA10 PO; ENOX40IN SQ; ERTA1INJ IV; FERR1TAB13 PO; FLUT0.15 NAE; GLC/500 PO; LCTX; LCTX PO; LEVO75TA5 PO; LEVO88TA3 PO; LISI-789 PO; MCRB100 PO; MCRK20 PO; MOMLX PO; MULT-506 PO; MULT-916 PO; ONDA4TAB46 PO; OXYC-57 PO; PRAV20TA PO; SENN-61 PO; SENN8.6T7 PO; SERT50TA PO; SLWMEC PO; SODIENE PR; UMEC1AER INH
[2016-07-28 10:34] LABS: HEMATOCRIT 28.7 % (37-47); MEAN CELL VOLUME 89.7 fL (80-100); MEAN CORPUSCULAR HEMOGLOBIN 27.8 pg (25-34); MEAN PLATELET VOLUME 10.6 fL (7.4-10.4); PLATELET COUNT 367 K/uL (130-400); WHITE BLOOD COUNT 8.66 K/uL (4.8-10.8)
[2016-07-28 10:49] LABS: BLOOD UREA NITROGEN 16 mg/dl (7-18); BUN/CREATININE RATIO 17.3 (10-20); CARBON DIOXIDE 19 mmol/L (21-32); CHLORIDE 113 mmol/L (98-107); CREATININE 0.92 mg/dl (0.60-1.20); GLUCOSE 87 mg/dl (70-99); SODIUM 140 mmol/L (136-145)
[2016-07-28 10:52] LABS: CALCIUM 9.2 mg/dl (8.5-10.1)
[2016-07-28 10:54] LABS: PREALBUMIN 27.7 mg/dl (20-40)
== END | disposition home or self-care (01) ==
LOC: C.LABVPSUA 10:10
PROVIDERS: ATTEND Internal Medicine Critical Care Medicine
DX: D72.829 Elevated white blood cell count, unspecified (principal)

== ENCOUNTER 2016-07-30 03:24 | Inpatient (IN) | payer BC, OTHER ==
[~2016-07-30] VITALS: Ht 157.5 cm; Wt 85.8 kg
[2016-07-30] VITALS (9 sets, daily range): BP systolic 75–115; BP diastolic 45–63; PULSE 74–86; TEMP 36.6–37; O2SAT 96–100; Ht 157.5 cm; Wt 85.8 kg
[~2016-07-30 03:24] MED LIST changes: -ACET-1311 PO; -AMOX500C3 PO; -AMOX500T PO; -ASCA500 PO; -BISA1SUP4 RE; -CYAN10005 PO; -CZR25 PO; -ENOX40IN SQ; -FERR1TAB13 PO; -LCTX; -LEVO88TA3 PO; -MCRB100 PO; -MCRK20 PO; -MOMLX PO; -MULT-506 PO; -MULT-916 PO; -ONDA4TAB46 PO; -OXYC-57 PO; -SENN-61 PO; -SENN8.6T7 PO; -SLWMEC PO; -SODIENE PR
[2016-07-30] MEDS ORDERED: ONDANSETRON INJ 2 MG/ML 2 ML VIAL ONE ×2 (03:35→10:29)
[2016-07-30] MEDS ORDERED: SODIUM CHLORIDE 0.9% 1000ML 1,000 ML IV STA ×2 (03:36→04:41)
--- NOTE | 2016-07-30 03:48 | EMERGENCY ROOM VISIT NOTE ---
History Report prepared by Katharine: Aide Dale Under the Supervision of: Dr. Sandy Miller D.O. First contact with patient: 03:27 Chief Complaint: HYPOTENSION Stated Complaint: HYPOTENSION History of Present Illness The patient is a 71 year old female who presents to the Emergency Room via ALS from the [facility] with complaints of persistent hypotension that began just prior to arrival. She currently rates her discomfort in her abdomen as a 10/10 in severity. Per EMS the patient has recently been constipated over the past two days. EMS reports that the patient was given a suppository and then this evening the patient needed to go to the bathroom. EMS reports that the patient began seeing "sparkles," when she stood up to go to the bathroom which is when 911 was called. EMS reports that the patient blood pressure was 70 mmHg systolically upon their arrival. EMS notes that the patient has no reported history of hypotension. EMS reports that the patient is currently being treated with Invanz IV antibiotics for a bacterial urinary tract infection that grew out E. coli. The patient states that she felt lightheaded this evening. She states that she vomited yesterday. The patient stats that she cannot remember exactly what she ate yesterday. She states that prior to going to bed last night she developed abdominal pain. The patient additionally notes nausea , but denies any chest pain or shortness of breath. Source of History: patient, EMS Onset: prior to arrival Position: other (global) Symptom Intensity: 10/10 Quality: other (hypotension) Timing: other (persistent) Associated Symptoms: + abdominal pain, + nausea, + vomiting, No SOB, No chest pain Note: Associated symptoms: seeing "sparkles," lightheadedness Review of Systems See HPI for pertinent positives & negatives. A total of 10 systems reviewed and were otherwise negative. Past Medical & Surgical Medical Problems: (1) CKD (chronic kidney disease), stage III (2) COPD, moderate (3) Depression (4) DM type 2 (diabetes mellitus, type 2) (5) Hypothyroidism (6) Perforation of colon (7) Polymicrobial sepsis Family History FH: colon cancer SISTER Social History Smoking Status: Former Smoker Alcohol Use: none Marital Status: single Occupation Status: retired Current/Historical Medications Scheduled Acetaminophen (Tylenol Arthritis Ext Rel), 650 MG PO DAILY Acetazolamide (Acetazolamide), 250 MG PO TID Albuterol Sulfate (Proair Respiclick), 2 PUFF INH QID Alendronate Sodium (Fosamax), 70 MG PO WK Amoxicillin (Amoxil), 500 MG PO TID Ascorbic Acid (Vitamin C), 500 MG PO BID Calcitriol (Rocaltrol Cap), 0.25 MCG PO MWF Calcium Citrate-Vitamin D (Citracal + D3 Maximum), 1 TAB PO DAILY Cetirizine Hcl (Zyrtec), 5 MG PO DAILY Docusate Sodium (Colace Clear), 1 CAP PO DAILY Ertapenem Sodium (Invanz), 1 GM IV DAILY AT 1400 Fluticasone Propionate (Nasal) (Flonase Allergy Relief), 2 SPRAYS MARI DAILY Lactobacillus Acidophilus (Lactinex), 4 TABS TID Levothyroxine Sodium (Levothyroxine Sodium), 1 TAB PO DAILY Lisinopril (Zestril), 2.5 MG PO DAILY Metformin Hcl (Glucophage), 500 MG PO BID Multivitamin (Multivitamin), 1 TAB PO QAM Pravastatin (Pravachol ), 20 MG PO DAILY Sertraline (Zoloft), 50 MG PO DAILY Umeclidinium-Vilanterol (Anoro Ellipta 62.5-25 Mcg/INH), 1 PUFFS INH DAILYBB Scheduled PRN Acetaminophen (Tylenol), 650 MG PO Q4H PRN for Pain or Fever Aluminum Hydroxide-Mag Trisil (Gaviscon), 2 TABS PO QID PRN for GI Upset Bisacodyl (Bisacodyl Laxative), 10 MG RE DAILY PRN for Constipation Magnesium Hydroxide (Milk of Magnesia), 30 ML PO DAILY PRN for Constipation Sodium Phosphate/Biphosphate (Fleet Enema), 1 EA SD DAILY PRN for Constipation Allergies Coded Allergies: No Known Allergies (Unverified , 07/30/16) Physical Exam Vital Signs Date Time Temp Pulse Resp B/P Pulse Ox O2 Delivery O2 Flow Rate FiO2 07/30/16 13:15 36.6 87 20 77/57 100 Mechanical Ventilator 07/30/16 08:18 72 20 69/43 100 07/30/16 07:45 102 22 75/46 100 Nasal Cannula 2.0 07/30/16 07:15 75 18 89/49 99 Room Air 07/30/16 06:54 71 07/30/16 06:30 76 21 85/43 97 Nasal Cannula 2.0 07/30/16 06:15 77/38 07/30/16 06:00 77 19 81/44 98 Nasal Cannula 2.0 07/30/16 05:45 83/45 07/30/16 05:35 104/55 07/30/16 05:30 77 21 79/40 94 Nasal Cannula 2.0 07/30/16 05:07 78 18 73/36 92 Nasal Cannula 2.0 07/30/16 04:40 78 16 89/54 95 Nasal Cannula 07/30/16 03:59 36.4 07/30/16 03:55 Nasal Cannula 2.0 07/30/16 03:33 70 07/30/16 03:25 80 28 62/36 95 Room Air Physical Exam General: Pale and diaphoretic. HEENT: Head - normocephalic and atraumatic Pupils are equal, round, and reactive to light. Extraocular eye muscles are intact, and sclera are anicteric. Nose - moist nasal mucosa without discharge. Mouth - moist buccal mucosa. Oropharynx is nonerythematous and there is no tonsillar exudate or edema noted. Neck: Supple; no JVD, nuchal rigidity, cervical lymphadenopathy. Heart: Regular rate and rhythm. There is a normal S1 and S2 with no murmurs, clicks, or gallops appreciated. Lungs: Clear to auscultation bilaterally with no wheezes, rales, or rhonchi. Abdomen: Abdominal distension and tenderness over the right side of the abdomen. Soft, with good bowel sounds. There are no palpable pulsatile masses or hepatosplenomegaly. There is no guarding, rigidity, or rebound noted. Extremities: PICC line in place in the left arm. No evidence of cyanosis, clubbing, or edema. There are easily palpable peripheral pulses. Skin: warm and dry with good turgor and no rashes. Medical Decision & Procedures ER Provider Diagnostic Interpretation: 2 view abdominal x-ray, obstruction series as per my interpretation: Unremarkable chest portion, significant colonic fecal retention with occasional air fluid level and questionable free air under the diaphragm. CT results as stated below per my review and radiologist interpretation: CT Abdomen and Pelvis: Free intraperitoneal air. Large amount of feces in the cecum, which measures up to 8.2 cm and there is adjacent fat stranding and small foci of air. Free air is most likely related to cecal perforation in setting of fecal impction/stercoral colitis. Small amount of free fluid, predominantly in pelvis and adjacent to live. Small bowel is not dilated. Small sliding hiatal hernia. 4.7 cm left ovarian likely cyst. Atherosclerotic calcifications Mild to severe multilevel degenerative changes of the lumbar spine. RAdiologist: Tian Cabello MD Study ready at 0539 and initial results transmitted at 0613. Critical Value Communications Clear time Type Notes Call doctor Bowel perforation with free air. Laboratory Results Test 07/30/16 03:45 07/30/16 03:59 07/30/16 11:10 Neutrophils % (Manual) 84.1 % Lymphocytes % (Manual) 12.3 % Monocytes % (Manual) 0.9 % Basophils % (Manual) 0.9 % Metamyelocytes % 1.8 % Neutrophils # (Manual) 5.20 K/uL (1.4-6.5) Total Absolute Neutrophils 5.20 K/uL (1.4-6.5) Lymphocytes # (Manual) 0.76 K/uL (1.2-3.4) Total Absolute Lymphocytes 0.76 K/uL (1.2-3.4) Monocytes # (Manual) 0.06 K/uL (0.11-0.59) Basophils # (Manual) 0.06 K/uL (0-0.2) Metamyelocytes # 0.11 K/uL (0-0) Toxic Vacuolation 1+ Prothrombin Time 10.5 SECONDS (9.0-12.0) Prothromb Time International Ratio 1.0 (0.9-1.1) Activated Partial Thromboplast Time 23.6 SECONDS (21.0-31.0) Partial Thromboplastin Ratio 0.9 Total Creatine Kinase 17 U/L (26-192) Creatine Kinase MB 1.0 ng/ml (0.5-3.6) Creatine Kinase MB Ratio 5.9 (0-3.0) Bedside Lactic Acid Venous 2.96 mmol/L (0.90-1.70) Bedside Hemoglobin 7.5 g/dl (12.0-16.0) Bedside Hematocrit 22 % (37-47) Bedside Sodium 141 mEq/L (135-144) Bedside Potassium 3.5 mEq/L (3.3-5.0) Bedside Chloride 116 mEq/L (101-112) Bedside Total CO2 14 mEq/l (24-31) Bedside Blood Urea Nitrogen 17 mg/dl (7-18) Bedside Creatinine 0.9 mg/dl (0.6-1.3) Bedside Ionized Calcium (Lydia) 1.14 mmol/l (1.12-1.32) Date/Time Source Procedure Growth Status 07/30/16 13:00 Nasal MRSA DNA Surveillance Screen - Final Specimen Negative for MRSA by DNA Probe Complete Laboratory results per my review. Medications Administered Medications (Trade) Dose Ordered Sig/Kwabena Route Start Time Stop Time Status Last Admin Dose Admin Ondansetron HCl 4 mg 4 mg STK-MED ONCE .ROUTE 07/30/16 03:35 07/30/16 03:36 DC 07/30/16 03:39 4 MG Sodium Chloride 1,000 ml @ 999 mls/hr Q1H1M STAT IV 07/30/16 03:36 07/30/16 04:36 DC 07/30/16 03:36 999 MLS/HR Sodium Chloride (Nss 1000ml) 1,000 ml @ 250 mls/hr Q4H STAT IV 07/30/16 04:41 07/30/16 08:40 DC 07/30/16 04:41 250 MLS/HR Piperacillin Sod/ Tazobactam Sod (Zosyn Iv) 4.5 gm NOW STAT IV 07/30/16 06:19 07/30/16 06:22 DC 07/30/16 06:19 4.5 GM Procedure The patient was treated with Zofran Inj 4 mg .route, Sodium Chloride 1000 ml @ 999 mls/hr IV, Sodium Chloride 1000 ml @ 250 mls/hr IV. IV Zosyn ECG Indication: other (hypotension) Rate (beats per minute): 69 Rhythm: normal sinus Findings: no acute ischemic change, no ectopy ED Course 0330: Past medical records reviewed. The patient was evaluated in room B1. A complete history and physical exam was performed. The patient became nauseous during the exam and began vomiting. Laboratory studies were drawn as above. 0335: Ordered Zofran Inj 4 mg IV, Sodium Chloride 1000 ml @ 999 mls/hr IV. The patient had an obstruction series as described above. She went for a stat CT scan of the abdomen/pelvis. 0439: I reevaluated the patient and she remains hypotensive despite receiving a second liter of IV crystalloid. 0441: Ordered Sodium Chloride 1000 ml @ 250 mls/hr IV. 0545: I reevaluated the patient and she admits to not drinking enough fluids over the last day due to her nausea. She states that she is still nauseous and has abdominal pain. The patient's blood pressure was up to 104 systolically, but is now down in the 80s systolically. 0612: I discussed the patients case with the [facility] physician. They note that the patient has a perforated bowel. 0616: I reevaluated the patient and I discussed her exam findings with her. I discussed the treatment plan with her. She verbalized complete understanding and agreement. She will be evaluated for further treatment. 0617: I discussed the patients case with Dr. Powers, General Surgery. He states that he will be in to evaluate the patient. 0619: Ordered Zosyn IV 4.5 gm IV. 0622: the patient states that she no longer has an allergy to penicillin. Medical Decision The patient is a 71 year old female who presents to the ED with persistent hypotension. Differential diagnosis includes perforated viscus, Small bowel obstruction, sepsis, dehydration. Lab interpretation: white count 6.1, hemoglobin 9.2 baseline for her, creatinine 1.4 which is significantly elevated, 2 days ago it was .9, glucose 151, lactic acid 2.96, negative troponin, normal CoAgs. This is a 71-year-old female who was brought to the emergency department With Lightheadedness upon standing and persistent hypotension. Upon presentation to the emergency department, the patient was noted to have some right-sided abdominal pain. Plain films were concerning for pneumoperitoneum. CT scan confirmed a cecal perforation. The patient was thought to be septic and suffering from septic shock with such significant hypotension as a result of the perforated viscus. The patient was started on IV Zosyn. She has a peripheral IV in place along with the PICC line. I discussed the case with general surgery and they will evaluate the patient for further management. The patient has a baseline hemoglobin and nines. She was typed and crossed for 2 units of packed blood cells. Consults Time Called: 06 Consulting Physician: Dr. Powers, General Surgery Returned Call: 0616 I discussed the patients case with Dr. Powers, General Surgery. He states that he will be in to evaluate the patient. Impression Primary Impression: Septic shock Additional Impression: Perforated viscus Critical Care I have personally spent greater than 90 minutes of critical care time in the direct management of this patient. This includes bedside care, interpretation of diagnostic studies, and testing, discussion with consultants, patient, and family members, and other required patient management activities. This 90 minutes is in excess of all separately billable procedures. Scribe Attestation The scribe's documentation has been prepared under my direction and personally reviewed by me in its entirety. I confirm that the note above accurately reflects all work, treatment, procedures, and medical decision making performed by me. Departure Information Dispostion Being Evaluated By Surgeon Wyatt Hare at [facility] (PCP) Problem Qualifiers
[2016-07-30 03:55] LABS: HEMATOCRIT 28.9 % (37-47); MEAN CELL VOLUME 89.5 fL (80-100); MEAN CORPUSCULAR HEMOGLOBIN 28.5 pg (25-34); MEAN CORPUSCULAR HGB CONC 31.8 g/dl (32-36); MEAN PLATELET VOLUME 9.6 fL (7.4-10.4); PLATELET COUNT 356 K/uL (130-400); RED BLOOD COUNT 3.23 M/uL (4.2-5.4); WHITE BLOOD COUNT 6.18 K/uL (4.8-10.8)
[2016-07-30 04:05] LABS: PARTIAL THROMBOPLASTIN RATIO 0.9; PROTHROMBIN TIME (PATIENT) 10.5 SECONDS (9.0-12.0)
[2016-07-30] MEDS ORDERED: MOMLX PO (04:05)
[2016-07-30] MEDS ORDERED: ERTA1INJ IV (04:05)
[2016-07-30] MEDS ORDERED: ACET-1311 PO (04:05)
[2016-07-30] MEDS ORDERED: SODIENE PR (04:05)
[2016-07-30] MEDS ORDERED: BISA1SUP4 RE (04:05)
[2016-07-30] MEDS ORDERED: ASCA500 PO (04:05)
[2016-07-30] MEDS ORDERED: LCTX (04:05)
[2016-07-30] MEDS ORDERED: AMOX500C3 PO (04:05)
[2016-07-30] MEDS ORDERED: MULT-506 PO (04:05)
[2016-07-30] MEDS ORDERED: ALUMCHW2 PO (04:05)
[2016-07-30 04:13] LABS: ALT/SGPT 12 U/L (12-78); AST/SGOT 8 U/L (15-37); BLOOD UREA NITROGEN 20 mg/dl (7-18); BUN/CREATININE RATIO 14.5 (10-20); CALCIUM 8.6 mg/dl (8.5-10.1); CARBON DIOXIDE 19 mmol/L (21-32); CHLORIDE 113 mmol/L (98-107); GLUCOSE 151 mg/dl (70-99); POTASSIUM 3.5 mmol/L (3.5-5.1); SODIUM 144 mmol/L (136-145)
[2016-07-30 04:18] LABS: ALB/GLOB RATIO 0.7 (0.9-2); ALKALINE PHOSPHATASE 53 U/L (45-117); CKMB/CK RATIO 5.9 (0-3.0)
[2016-07-30 04:58] LABS: BASO ABS # 0.06 K/uL (0-0.2); BASOPHIL % 0.9 %; COMPLETE YES; ECHINOCYTES 1+; LYMPH ABS # 0.76 K/uL (1.2-3.4); LYMPHOCYTE % 12.3 %; META ABS # 0.11 K/uL (0-0); METAMYELOCYTE % 1.8 %; NEUTROPHILS % 84.1 %; OVALOCYTES 1+; VACUOLIZATION 1+
[2016-07-30] MEDS ORDERED: PIPERACILLIN/TAZOBACTAM 4.5 GM/100ML D5W IV STA (06:19)
--- NOTE | 2016-07-30 07:07 | DIAGNOSTIC IMAGING REPORT ---
ABDOMEN 2VIEW W/PA CHEST RTN CLINICAL HISTORY: Dizziness, hypertension. Constipation. COMPARISON STUDY: Chest x-ray dated 07/16/2016 FINDINGS: The erect chest reveals no focal pulmonary consolidation. There is a left-sided subclavian central venous catheter the tip of which projects over the superior vena cava at the azygos level. There are no abnormally dilated loops of large or small bowel. There are scattered right lower quadrant air-fluid levels. There is pneumoperitoneum. There is a large amount stool within the colon. IMPRESSION: 1. Pneumoperitoneum 2. Large amount of stool within the colon Electronically signed by: Isaac Kumari M.D. 07/30/2016 7:06 AM Dictated Date/Time: 07/30/2016 7:04 AM
--- NOTE | 2016-07-30 07:50 | DIAGNOSTIC IMAGING REPORT ---
CT SCAN OF THE ABDOMEN AND PELVIS WITHOUT CONTRAST CLINICAL HISTORY: Diffuse abdominal pain COMPARISON STUDY: No previous studies for comparison. TECHNIQUE: CT scan of the abdomen and pelvis was performed from the lung bases to the proximal femurs. Images are reviewed in the axial, sagittal, and coronal planes. IV contrast was not administered for this examination. CT DOSE: 697.11 mGy.cm FINDINGS: Lower chest: There are lingular atelectatic changes. Liver: The unenhanced liver is normal in size, contour, and attenuation. There is no intrahepatic biliary ductal dilatation. Gallbladder: Cholelithiasis Spleen: Normal in size and attenuation. Pancreas: Unremarkable. Adrenal glands: The 26 mm left adrenal adenoma. Kidneys: The unenhanced kidneys are normal in size without hydronephrosis. There is no contour deforming renal mass lesion. No renal calculi are identified. Bowel: There is a dilated stool-filled right colon and cecum. The cecum measures 8 cm. There is mild infiltration of the pericolonic fat at the level of the ascending colon. There is free intraperitoneal air, likely secondary to a perforated viscus. There is a small hiatal hernia. Peritoneum: Free air is visualized. There is a small amount of fluid within the pelvis. Vasculature: The abdominal aorta is normal in course and caliber. Adenopathy: None. Pelvic viscera: There is a 4.8 cm cystic left ovarian lesion. In a postmenopausal patient, this deserves further workup. Skeletal structures: There are prominent disc osteophyte complexes at the L3-4, L4-5, and L5-S1 levels. IMPRESSION: 1. Free intraperitoneal air, suggestive of a perforated viscus. 2. Large amount of stool within the transverse and right colon. The cecum measures 8 cm in diameter. It is conceivable that the free air is secondary to a cecal perforation. Surgical consultation is recommended. 3. Small amount of free fluid 4. Cholelithiasis 5. 4.8 cm cystic left ovarian lesion Electronically signed by: Isaac Kumari M.D. 07/30/2016 7:48 AM Dictated Date/Time: 07/30/2016 7:42 AM
[2016-07-30] MEDS ORDERED: FENTANYL CITRATE INJ 50 MCG/1 ML 2 ML VIAL ONE (08:16)
[2016-07-30] MEDS ORDERED: SUCCINYLCHOLINE CHLORIDE 20 MG/ML 10 ML VIAL IV ONE (08:16)
[2016-07-30] MEDS ORDERED: ETOMIDATE 2 MG/ML 20 ML VIAL IV ONE (08:16)
[2016-07-30] MEDS ORDERED: MoRPHine SULFATE 2 MG/ML CARP ONE ×3 (08:17→12:40)
[2016-07-30] MEDS ORDERED: ROCURONIUM BROMID 50MG/5ML SYR ONE ×2 (08:17→10:37)
--- NOTE | 2016-07-30 08:31 | History and Physical ---
History & Physical Date & Time of Service: July 30, 2016 at 07:58 Chief Complaint: Hypotension Primary Care Physician: Ananya Hong Jean-Paul History of Present Illness Source: patient 71 y/o female presented to ER with abdominal pain that began yesterday. It is located throughout her abdomen with no site predominating. She has never had pain similar to this in the past. Upon presentation to the ER she was found to have a systolic bp of 70-90 that initially responded to fluids but then dropped again. She has not had tachycardia. She is not taking a Beta idalia. She denies fever and chills. She had nausea but did not vomit. she does not think she had a fever. She was admitted her the end of June after a fall. She was found to have a UTI with E.coli and Enterococcus and is presently undergoing Invanz therapy via PICC line. Her bowel habits are irregular. She has a recent history of constipation while hospitalized treated with laxatives but then had diarrhea. She has not had a bm for the last 2 days. She has no history of diverticulitis. She had a colonoscopy many years ago but is unsure as to exactly when it was. She was told that she had polyps. Ct scan showed a dilated right colon, especially the cecum. There is free air present. Past Medical/Surgical History Medical Problems: (1) CKD (chronic kidney disease), stage III Status: Chronic (2) COPD, moderate Status: Chronic (3) Depression Status: Chronic (4) DM type 2 (diabetes mellitus, type 2) Status: Chronic (5) Hypothyroidism Status: Chronic PSH: None Family History FH: colon cancer SISTER Social History Smoking Status: Former Smoker Smokeless Tobacco Use: No Alcohol Use: none (recently) Marital Status: single Housing status: lives alone Occupational Status: retired Immunizations History of Influenza Vaccine: Yes Influenza Vaccine Date: Dec 23, 2015 History of Tetanus Vaccine?: Yes Tetanus Immunization Date: Oct 16, 2008 History of Pneumococcal: Yes Pneumococcal Date: July 30, 2015 Allergies Coded Allergies: Penicillins (Verified Allergy, Unknown, ITCHING (TOLERATES AMOXIL), 07/30/16 ) Home Medications Scheduled Acetaminophen (Tylenol Arthritis Ext Rel), 650 MG PO DAILY Acetazolamide (Acetazolamide), 250 MG PO TID Albuterol Sulfate (Proair Respiclick), 2 PUFF INH QID Alendronate Sodium (Fosamax), 70 MG PO WK Amoxicillin (Amoxil), 500 MG PO TID Ascorbic Acid (Vitamin C), 500 MG PO BID Calcitriol (Rocaltrol Cap), 0.25 MCG PO MWF Calcium Citrate-Vitamin D (Citracal + D3 Maximum), 1 TAB PO DAILY Cetirizine Hcl (Zyrtec), 5 MG PO DAILY Docusate Sodium (Colace Clear), 1 CAP PO DAILY Ertapenem Sodium (Invanz), 1 GM IV DAILY AT 1400 Fluticasone Propionate (Nasal) (Flonase Allergy Relief), 2 SPRAYS MARI DAILY Lactobacillus Acidophilus (Lactinex), 4 TABS TID Levothyroxine Sodium (Levothyroxine Sodium), 1 TAB PO DAILY Lisinopril (Zestril), 2.5 MG PO DAILY Metformin Hcl (Glucophage), 500 MG PO BID Multivitamin (Multivitamin), 1 TAB PO QAM Pravastatin (Pravachol ), 20 MG PO DAILY Sertraline (Zoloft), 50 MG PO DAILY Umeclidinium-Vilanterol (Anoro Ellipta 62.5-25 Mcg/INH), 1 PUFFS INH DAILYBB Scheduled PRN Acetaminophen (Tylenol), 650 MG PO Q4H PRN for Pain or Fever Aluminum Hydroxide-Mag Trisil (Gaviscon), 2 TABS PO QID PRN for GI Upset Bisacodyl (Bisacodyl Laxative), 10 MG RE DAILY PRN for Constipation Magnesium Hydroxide (Milk of Magnesia), 30 ML PO DAILY PRN for Constipation Sodium Phosphate/Biphosphate (Fleet Enema), 1 EA CA DAILY PRN for Constipation Review of Systems Constitutional: No fever Respiratory: No cough, No sputum Abdomen: + problem reported (as per HPI) Genitourinary - Female: + dysuria Integumentary: No rash Physical Exam Vital Signs Date Time Temp Pulse Resp B/P Pulse Ox O2 Delivery O2 Flow Rate FiO2 07/30/16 07:45 102 22 75/46 100 Nasal Cannula 2.0 07/30/16 07:15 75 18 89/49 99 Room Air 07/30/16 06:54 71 07/30/16 06:30 76 21 85/43 97 Nasal Cannula 2.0 07/30/16 06:15 77/38 07/30/16 06:00 77 19 81/44 98 Nasal Cannula 2.0 07/30/16 05:45 83/45 07/30/16 05:35 104/55 07/30/16 05:30 77 21 79/40 94 Nasal Cannula 2.0 07/30/16 05:07 78 18 73/36 92 Nasal Cannula 2.0 07/30/16 04:40 78 16 89/54 95 Nasal Cannula 07/30/16 03:59 36.4 07/30/16 03:55 Nasal Cannula 2.0 07/30/16 03:33 70 07/30/16 03:25 80 28 62/36 95 Room Air General Appearance: + pertinent finding (Elderly female lying quietly appears in no acute distress) Head: normocephalic Respiratory/Chest: + rhonchi (scattered), + wheezing (scattered end expiratory) Cardiovascular: regular rate, rhythm Abdomen/GI: + tenderness (to minimal palpation throughout), + abnormal bowel sounds (absent), + distended Back: no CVA tenderness Extremities/Musculoskelatal: no pedal edema Skin: normal color Diagnostics Laboratory Results Results Past 24 Hours Test 07/30/16 03:45 07/30/16 03:59 Range/Units White Blood Count 6.18 4.8-10.8 K/uL Red Blood Count 3.23 4.2-5.4 M/uL Hemoglobin 9.2 12.0-16.0 g/dL Hematocrit 28.9 37-47 % Mean Corpuscular Volume 89.5 80-100 fL Mean Corpuscular Hemoglobin 28.5 25-34 pg Mean Corpuscular Hemoglobin Concent 31.8 32-36 g/dl Platelet Count 356 130-400 K/uL Mean Platelet Volume 9.6 7.4-10.4 fL RDW Standard Deviation 53.5 36.4-46.3 fL RDW Coefficient of Variation 16.2 11.5-14.5 % Neutrophils % (Manual) 84.1 % Lymphocytes % (Manual) 12.3 % Monocytes % (Manual) 0.9 % Basophils % (Manual) 0.9 % Metamyelocytes % 1.8 % Neutrophils # (Manual) 5.20 1.4-6.5 K/uL Total Absolute Neutrophils 5.20 1.4-6.5 K/uL Lymphocytes # (Manual) 0.76 1.2-3.4 K/uL Total Absolute Lymphocytes 0.76 1.2-3.4 K/uL Monocytes # (Manual) 0.06 0.11-0.59 K/uL Basophils # (Manual) 0.06 0-0.2 K/uL Metamyelocytes # 0.11 0-0 K/uL Toxic Vacuolation 1+ Ovalocytes 1+ Echinocytes 1+ Prothrombin Time 10.5 9.0-12.0 SECONDS Prothromb Time International Ratio 1.0 0.9-1.1 Activated Partial Thromboplast Time 23.6 21.0-31.0 SECONDS Partial Thromboplastin Ratio 0.9 Sodium Level 144 136-145 mmol/L Potassium Level 3.5 3.5-5.1 mmol/L Chloride Level 113 98-107 mmol/L Carbon Dioxide Level 19 21-32 mmol/L Anion Gap 12.0 3-11 mmol/L Blood Urea Nitrogen 20 7-18 mg/dl Creatinine 1.40 0.60-1.20 mg/dl Est Creatinine Clear Calc Drug Dose 36.9 ml/min Estimated GFR () 44.0 Estimated GFR (Non- 38.0 BUN/Creatinine Ratio 14.5 10-20 Random Glucose 151 70-99 mg/dl Calcium Level 8.6 8.5-10.1 mg/dl Total Bilirubin 0.2 0.2-1 mg/dl Aspartate Amino Transf (AST/SGOT) 8 15-37 U/L Alanine Aminotransferase (ALT/SGPT) 12 12-78 U/L Alkaline Phosphatase 53 45-117 U/L Total Creatine Kinase 17 26-192 U/L Creatine Kinase MB 1.0 0.5-3.6 ng/ml Creatine Kinase MB Ratio 5.9 0-3.0 Troponin I < 0.015 0-0.045 ng/ml Total Protein 5.8 6.4-8.2 gm/dl Albumin 2.4 3.4-5.0 gm/dl Globulin 3.4 2.5-4.0 gm/dl Albumin/Globulin Ratio 0.7 0.9-2 Bedside Lactic Acid Venous 2.96 0.90-1.70 mmol/L Microbiology Results 07/30/16 Blood Culture, Received Pending 07/30/16 Blood Culture, Received Pending Diagnostic Radiology CT SCAN OF THE ABDOMEN AND PELVIS WITHOUT CONTRAST CLINICAL HISTORY: Diffuse abdominal pain COMPARISON STUDY: No previous studies for comparison. TECHNIQUE: CT scan of the abdomen and pelvis was performed from the lung bases to the proximal femurs. Images are reviewed in the axial, sagittal, and coronal planes. IV contrast was not administered for this examination. CT DOSE: 697.11 mGy.cm FINDINGS: Lower chest: There are lingular atelectatic changes. Liver: The unenhanced liver is normal in size, contour, and attenuation. There is no intrahepatic biliary ductal dilatation. Gallbladder: Cholelithiasis Spleen: Normal in size and attenuation. Pancreas: Unremarkable. Adrenal glands: The 26 mm left adrenal adenoma. Kidneys: The unenhanced kidneys are normal in size without hydronephrosis. There is no contour deforming renal mass lesion. No renal calculi are identified. Bowel: There is a dilated stool-filled right colon and cecum. The cecum measures 8 cm. There is mild infiltration of the pericolonic fat at the level of the ascending colon. There is free intraperitoneal air, likely secondary to a perforated viscus. There is a small hiatal hernia. Peritoneum: Free air is visualized. There is a small amount of fluid within the pelvis. Vasculature: The abdominal aorta is normal in course and caliber. Adenopathy: None. Pelvic viscera: There is a 4.8 cm cystic left ovarian lesion. In a postmenopausal patient, this deserves further workup. Skeletal structures: There are prominent disc osteophyte complexes at the L3-4, L4-5, and L5-S1 levels. IMPRESSION: 1. Free intraperitoneal air, suggestive of a perforated viscus. 2. Large amount of stool within the transverse and right colon. The cecum measures 8 cm in diameter. It is conceivable that the free air is secondary to a cecal perforation. Surgical consultation is recommended. 3. Small amount of free fluid 4. Cholelithiasis 5. 4.8 cm cystic left ovarian lesion Impression Assessment and Plan Elderly female with abdominal pain and peritonitis by exam with free air on CT scan and a dilated right colon suspicious for perforation. Hypotensive in ER with partial response to fluid administration. Gave additional fluid. Will need surgical exploration with probable right colectomy and possible ostomy formation. I explained all of this tho the patient. I explained the possible complications and answered her questions and she has signed a consent form. Type and cross match sent considering HGB of 9.2. Will need critical care bed postoperatively. Tried to call patient's sister at her number ([phone]) and at the patient's number ([phone]) but there was no answer.
[2016-07-30] MEDS ORDERED: EpHEDrine SULFATE INJ 50 MG/ML AMP IV PRN (08:45)
[2016-07-30] MEDS ORDERED: ATROPINE SULFATE 0.1 MG/ML 5ML SYR IV PRN (08:45)
[2016-07-30] MEDS ORDERED: FENTANYL CITRATE INJ 50 MCG/1 ML 2 ML VIAL IV PRN (08:45)
[2016-07-30] MEDS ORDERED: ALBUMIN HUMAN 5% 12.5 GM/250 ML VIAL IV ONE (09:40)
[2016-07-30] MEDS ORDERED: VASOPRESSIN 20 UNIT/ML VIAL ONE (10:28)
[2016-07-30] MEDS ORDERED: PHENYLEPHRINE HCL INJ 10 MG/ML VIAL ONE (10:28)
[2016-07-30] MEDS ORDERED: EpHEDrine SULFATE INJ 50 MG/ML AMP ONE (10:28)
[2016-07-30] MEDS ORDERED: GLYCOPYRROLATE INJ 0.2 MG/ML VIAL ONE (10:29)
[2016-07-30] MEDS ORDERED: NEOSTIGMINE METHYLSULFATE 5 MG/5 ML SYR ONE (10:29)
[2016-07-30] MEDS ORDERED: DEXAMETHASONE SOD INJ 4 MG/ML VIAL ONE (10:29)
[2016-07-30] MEDS ORDERED: CEFAZOLIN SOD 1 GM VIAL ONE (11:09)
--- NOTE | 2016-07-30 13:11 | [facility] Post Operative Brief Note ---
Immediate Operative Summary Operative Date July 30, 2016. Pre-Operative Diagnosis Abdominal pain and peritonitis Post-Operative Diagnosis Abdominal pain and peritonitis Procedure(s) Performed Exploratory Laparotomy, Bowel Resection, Creation of Ileostomy, Left Salpingoopherectomy Surgeon Dr. Powers Photonics Technician Surgeon(s) none Estimated Blood Loss 200 cc Findings See dictation Specimens Micro #1 Intra-abdominal fluid, gram stain aerobic and anaerobic culture and sensitivity Specimens A: Left ovary and tube B: Bowel Drains 2 19F Spencer drains along gutters into pelvis Anesthesia General Complication(s) None Disposition Recovery Room / PACU
--- NOTE | 2016-07-30 13:16 | Anesthesiology Progress Note ---
Anesthesia Post Op Note Date & Time July 30, 2016 at 13:14 Vital Signs Vital Signs Past 12 Hours Date Time Temp Pulse Resp B/P Pulse Ox O2 Delivery O2 Flow Rate FiO2 07/30/16 08:18 72 20 69/43 100 07/30/16 07:45 102 22 75/46 100 Nasal Cannula 2.0 07/30/16 07:15 75 18 89/49 99 Room Air 07/30/16 06:54 71 07/30/16 06:30 76 21 85/43 97 Nasal Cannula 2.0 07/30/16 06:15 77/38 07/30/16 06:00 77 19 81/44 98 Nasal Cannula 2.0 07/30/16 05:45 83/45 07/30/16 05:35 104/55 07/30/16 05:30 77 21 79/40 94 Nasal Cannula 2.0 07/30/16 05:07 78 18 73/36 92 Nasal Cannula 2.0 07/30/16 04:40 78 16 89/54 95 Nasal Cannula 07/30/16 03:59 36.4 07/30/16 03:55 Nasal Cannula 2.0 07/30/16 03:33 70 07/30/16 03:25 80 28 62/36 95 Room Air Notes Mental Status: alert / awake / arousable, participated in evaluation Pt Amnestic to Procedure: Yes Nausea / Vomiting: adequately controlled Pain: adequately controlled Airway Patency, RR, SpO2: stable & adequate BP & HR: stable & adequate Hydration State: stable & adequate Anesthetic Complications: no major complications apparent Pt transported to ICU intubated with monitors and O2. Pt stable on transport. Report was given to Dr. García, as400 programmer analyst. Care transferred to ICU team.
[2016-07-30] MEDS ORDERED: LACTATED RINGER'S 1000ML 500 ML IV ONE (13:30)
[2016-07-30] MEDS ORDERED: ERTAPENEM IV 0.5 GM in SODIUM CHLOR 0.9% AD-VAN 50ML 50 ML IV SCH (13:45)
[2016-07-30] MEDS ORDERED: SODIUM CHLORIDE 0.45% 1000ML 1,000 ML IV SCH (13:45)
[2016-07-30] MEDS ORDERED: PANTOprazole INJ 40 MG in SYRINGE 0 ML IV ONE (13:45)
[2016-07-30] MEDS ORDERED: SODIUM BICARB 8.4% INJ 50 MEQ/50 ML SYR IV STA (14:00)
[2016-07-30] MEDS ORDERED: [UNRECOGNIZED DRUG - OTHER] PRN (14:00)
[2016-07-30] MEDS ORDERED: PIPERACILL/TAZOBAC IV 3.375 GM in DEXTROSE 5% 100ML 100 ML IV SCH (14:00)
[2016-07-30] MEDS ORDERED: VANCOMYCIN CONSULT ACTIVE PRN (14:00)
[2016-07-30] MEDS ORDERED: SODIUM BICARB 8.4% INJ 50 MEQ/50 ML SYR IV ONE ×2 (14:00→21:14)
[2016-07-30] MEDS ORDERED: METRONIDAZOLE / NSS 500 MG in PREMIXED NSS 100 ML IV SCH (14:00)
--- NOTE | 2016-07-30 14:01 | DIAGNOSTIC IMAGING REPORT ---
CHEST ONE VIEW PORTABLE CLINICAL HISTORY: Respiratory failure COMPARISON STUDY: 07/30/2016 FINDINGS: There is a left-sided PICC catheter the tip of which projects over the superior vena cava the azygos level. There has been interval insertion of a right internal jugular central venous catheter. The tip projects over the right atrium. There have been interval insertion of nasogastric tube which passes into the stomach. There have been interval insertion of endotracheal tube. The tip is difficult to visualize. The tip appears to terminate 5.5 cm above the edmundo. There is no focal pulmonary consolidation. There are minor left basilar atelectatic changes. No significant pleural effusions are visualized.[ IMPRESSION: 1. Interval placement of a nasogastric tube which passes into the stomach 2. Interval placement of a right internal jugular central venous catheter. The tip terminates within the right atrium. No evidence of pneumothorax 3. Interval insertion of an endotracheal tube. The tip is difficult to visualize but appears to terminate approximately 5.5 cm above the edmundo Electronically signed by: Isaac Kumari M.D. 07/30/2016 2:00 PM Dictated Date/Time: 07/30/2016 1:57 PM
[2016-07-30 14:10] LABS: ISTAT ARTERIAL BLOOD GAS HCO3 11 meq/L (19-24); ISTAT ARTERIAL BLOOD GAS PCO2 42 mmHg (35-46); ISTAT ARTERIAL BLOOD GAS PO2 165 mmHg (80-95); ISTAT ARTERIAL BLOOD GAS pH 7.03 (7.35-7.45); ISTAT CARBON DIOXIDE 12 mEq/l (24-31); ISTAT DELIVERY SYSTEM Ventilator; ISTAT FIO2 50 %; ISTAT PEEP 5; ISTAT RATE 16; ISTAT SITE Art Line; VE 9; Vt 450
[2016-07-30] MEDS: NOREPINEPHRINE BIT INJ 8 MG in DEXTROSE 5% 500ML 500 ML IV PRN (14:20)
[2016-07-30] MEDS ORDERED: [UNRECOGNIZED DRUG - OTHER] PRN (14:30)
[2016-07-30] MEDS ORDERED: VANCOMYCIN INJ 2,000 MG in SODIUM CHLORIDE 0.9% 500ML 500 ML IV ONE (14:30)
[2016-07-30] MEDS ORDERED: DEXTROSE 50% 50 ML SYR IV PRN (14:45)
[2016-07-30] MEDS ORDERED: GLUCAGON FOR INJ 1 MG VIAL SQ PRN (14:45)
[2016-07-30] MEDS ORDERED: GLUCOSE 10 TABS/TUBE PO PRN (14:45)
[2016-07-30] MEDS ORDERED: GLUCOSE 40% GEL 15 GM TUBE PO PRN (14:45)
[2016-07-30 14:53] LABS: MEAN CELL VOLUME 89.2 fL (80-100); MEAN CORPUSCULAR HEMOGLOBIN 27.4 pg (25-34); MEAN CORPUSCULAR HGB CONC 30.7 g/dl (32-36); MEAN PLATELET VOLUME 9.7 fL (7.4-10.4); PLATELET COUNT 242 K/uL (130-400); RED BLOOD COUNT 3.25 M/uL (4.2-5.4); WHITE BLOOD COUNT 2.04 K/uL (4.8-10.8)
--- NOTE | 2016-07-30 15:06 | Medical Consult ---
Consultation Note Date of Service July 30, 2016. Consultation Note DATE OF ADMISSION: 07/30/16 DATE OF CONSULT: 07/30/16 REASON FOR CONSULT: Medical management status post colostomy for colon perforation HPI Source: Medical records, [facility]. Patient is intubated. 71 y/o female presented to ER with abdominal pain that began yesterday. Upon presentation to the ER she was found to have a systolic bp of 70-90 that initially responded to fluids but then dropped again. Her CT scan showed perforation of colon, was taken for emergent surgery- Exploratory Laparotomy, Bowel Resection, Creation of Ileostomy, Left Salpingoopherectomy by Dr Powers today. Recently discharged from hospital on 07/21/16 , Rxed for UTI/Bacteremia/Sepsis - E coli/Enterococcus , was on Invanz - supposed to take it for 14 days. On my evaluation, patient is status post op day 0. She is intubated. Was hypotensive and continues to be so. Received 5 L of IV Fluids so far. On levophed , IVF, IV antibiotics now. Past Medical/Surgical History Medical Problems: (1) CKD (chronic kidney disease), stage III Status: Chronic (2) COPD, moderate Status: Chronic (3) Depression Status: Chronic (4) DM type 2 (diabetes mellitus, type 2) Status: Chronic (5) Hypothyroidism Status: Chronic PSH: None Family History FH: colon cancer SISTER Social History Smoking Status: Former Smoker Smokeless Tobacco Use: No Alcohol Use: none (recently) Marital Status: single Housing status: lives alone Occupational Status: retired Immunizations History of Influenza Vaccine: Yes Influenza Vaccine Date: Dec 23, 2015 History of Tetanus Vaccine?: Yes Tetanus Immunization Date: Oct 16, 2008 History of Pneumococcal: Yes Pneumococcal Date: July 30, 2015 Allergies Coded Allergies: Penicillins (Verified Allergy, Unknown, ITCHING (TOLERATES AMOXIL), 07/30/16 ) Home Medications Scheduled Acetaminophen (Tylenol Arthritis Ext Rel), 650 MG PO DAILY Acetazolamide (Acetazolamide), 250 MG PO TID Albuterol Sulfate (Proair Respiclick), 2 PUFF INH QID Alendronate Sodium (Fosamax), 70 MG PO WK Amoxicillin (Amoxil), 500 MG PO TID Ascorbic Acid (Vitamin C), 500 MG PO BID Calcitriol (Rocaltrol Cap), 0.25 MCG PO MWF Calcium Citrate-Vitamin D (Citracal + D3 Maximum), 1 TAB PO DAILY Cetirizine Hcl (Zyrtec), 5 MG PO DAILY Docusate Sodium (Colace Clear), 1 CAP PO DAILY Ertapenem Sodium (Invanz), 1 GM IV DAILY AT 1400 Fluticasone Propionate (Nasal) (Flonase Allergy Relief), 2 SPRAYS MARI DAILY Lactobacillus Acidophilus (Lactinex), 4 TABS TID Levothyroxine Sodium (Levothyroxine Sodium), 1 TAB PO DAILY Lisinopril (Zestril), 2.5 MG PO DAILY Metformin Hcl (Glucophage), 500 MG PO BID Multivitamin (Multivitamin), 1 TAB PO QAM Pravastatin (Pravachol ), 20 MG PO DAILY Sertraline (Zoloft), 50 MG PO DAILY Umeclidinium-Vilanterol (Anoro Ellipta 62.5-25 Mcg/INH), 1 PUFFS INH DAILYBB Scheduled PRN Acetaminophen (Tylenol), 650 MG PO Q4H PRN for Pain or Fever Aluminum Hydroxide-Mag Trisil (Gaviscon), 2 TABS PO QID PRN for GI Upset Bisacodyl (Bisacodyl Laxative), 10 MG RE DAILY PRN for Constipation Magnesium Hydroxide (Milk of Magnesia), 30 ML PO DAILY PRN for Constipation Sodium Phosphate/Biphosphate (Fleet Enema), 1 EA RI DAILY PRN for Constipation Review of Systems Constitutional: No fever Respiratory: No cough, No sputum Abdomen: + problem reported (as per HPI) Genitourinary - Female: + dysuria Integumentary: No rash Physical Ex - H&P Physical Exam Vital Signs Date Time Temp Pulse Resp B/P Pulse Ox O2 Delivery O2 Flow Rate FiO2 07/30/16 07:45 102 22 75/46 100 Nasal Cannula 2.0 07/30/16 07:15 75 18 89/49 99 Room Air 07/30/16 06:54 71 07/30/16 06:30 76 21 85/43 97 Nasal Cannula 2.0 07/30/16 06:15 77/38 07/30/16 06:00 77 19 81/44 98 Nasal Cannula 2.0 07/30/16 05:45 83/45 07/30/16 05:35 104/55 07/30/16 05:30 77 21 79/40 94 Nasal Cannula 2.0 07/30/16 05:07 78 18 73/36 92 Nasal Cannula 2.0 07/30/16 04:40 78 16 89/54 95 Nasal Cannula 07/30/16 03:59 36.4 07/30/16 03:55 Nasal Cannula 2.0 07/30/16 03:33 70 07/30/16 03:25 80 28 62/36 95 Room Air General Appearance: + pertinent finding (Intubated), Sedated Head: normocephalic Eyes: PERRLA HEENT: Intubated Respiratory/Chest: + rhonchi (scattered) Cardiovascular: regular rate, rhythm Abdomen/GI: + Post surgery - dressing present, Drains x 2, + abnormal bowel sounds (absent), + distended Extremities/Musculoskelatal: no pedal edema Skin: normal color Neuro: Sedated, Intubated Diagnostics - H&P Diagnostics Laboratory Results Results Past 24 Hours Test 07/30/16 03:45 07/30/16 03:59 Range/Units White Blood Count 6.18 4.8-10.8 K/uL Red Blood Count 3.23 4.2-5.4 M/uL Hemoglobin 9.2 12.0-16.0 g/dL Hematocrit 28.9 37-47 % Mean Corpuscular Volume 89.5 80-100 fL Mean Corpuscular Hemoglobin 28.5 25-34 pg Mean Corpuscular Hemoglobin Concent 31.8 32-36 g/dl Platelet Count 356 130-400 K/uL Mean Platelet Volume 9.6 7.4-10.4 fL RDW Standard Deviation 53.5 36.4-46.3 fL RDW Coefficient of Variation 16.2 11.5-14.5 % Neutrophils % (Manual) 84.1 % Lymphocytes % (Manual) 12.3 % Monocytes % (Manual) 0.9 % Basophils % (Manual) 0.9 % Metamyelocytes % 1.8 % Neutrophils # (Manual) 5.20 1.4-6.5 K/uL Total Absolute Neutrophils 5.20 1.4-6.5 K/uL Lymphocytes # (Manual) 0.76 1.2-3.4 K/uL Total Absolute Lymphocytes 0.76 1.2-3.4 K/uL Monocytes # (Manual) 0.06 0.11-0.59 K/uL Basophils # (Manual) 0.06 0-0.2 K/uL Metamyelocytes # 0.11 0-0 K/uL Toxic Vacuolation 1+ Ovalocytes 1+ Echinocytes 1+ Prothrombin Time 10.5 9.0-12.0 SECONDS Prothromb Time International Ratio 1.0 0.9-1.1 Activated Partial Thromboplast Time 23.6 21.0-31.0 SECONDS Partial Thromboplastin Ratio 0.9 Sodium Level 144 136-145 mmol/L Potassium Level 3.5 3.5-5.1 mmol/L Chloride Level 113 98-107 mmol/L Carbon Dioxide Level 19 21-32 mmol/L Anion Gap 12.0 3-11 mmol/L Blood Urea Nitrogen 20 7-18 mg/dl Creatinine 1.40 0.60-1.20 mg/dl Est Creatinine Clear Calc Drug Dose 36.9 ml/min Estimated GFR () 44.0 Estimated GFR (Non- 38.0 BUN/Creatinine Ratio 14.5 10-20 Random Glucose 151 70-99 mg/dl Calcium Level 8.6 8.5-10.1 mg/dl Total Bilirubin 0.2 0.2-1 mg/dl Aspartate Amino Transf (AST/SGOT) 8 15-37 U/L Alanine Aminotransferase (ALT/SGPT) 12 12-78 U/L Alkaline Phosphatase 53 45-117 U/L Total Creatine Kinase 17 26-192 U/L Creatine Kinase MB 1.0 0.5-3.6 ng/ml Creatine Kinase MB Ratio 5.9 0-3.0 Troponin I < 0.015 0-0.045 ng/ml Total Protein 5.8 6.4-8.2 gm/dl Albumin 2.4 3.4-5.0 gm/dl Globulin 3.4 2.5-4.0 gm/dl Albumin/Globulin Ratio 0.7 0.9-2 Bedside Lactic Acid Venous 2.96 0.90-1.70 mmol/L Microbiology Results 07/30/16 Blood Culture, Received Pending 07/30/16 Blood Culture, Received Pending Diagnostic Radiology CT SCAN OF THE ABDOMEN AND PELVIS WITHOUT CONTRAST CLINICAL HISTORY: Diffuse abdominal pain COMPARISON STUDY: No previous studies for comparison. TECHNIQUE: CT scan of the abdomen and pelvis was performed from the lung bases to the proximal femurs. Images are reviewed in the axial, sagittal, and coronal planes. IV contrast was not administered for this examination. CT DOSE: 697.11 mGy.cm FINDINGS: Lower chest: There are lingular atelectatic changes. Liver: The unenhanced liver is normal in size, contour, and attenuation. There is no intrahepatic biliary ductal dilatation. Gallbladder: Cholelithiasis Spleen: Normal in size and attenuation. Pancreas: Unremarkable. Adrenal glands: The 26 mm left adrenal adenoma. Kidneys: The unenhanced kidneys are normal in size without hydronephrosis. There is no contour deforming renal mass lesion. No renal calculi are identified. Bowel: There is a dilated stool-filled right colon and cecum. The cecum measures 8 cm. There is mild infiltration of the pericolonic fat at the level of the ascending colon. There is free intraperitoneal air, likely secondary to a perforated viscus. There is a small hiatal hernia. Peritoneum: Free air is visualized. There is a small amount of fluid within the pelvis. Vasculature: The abdominal aorta is normal in course and caliber. Adenopathy: None. Pelvic viscera: There is a 4.8 cm cystic left ovarian lesion. In a postmenopausal patient, this deserves further workup. Skeletal structures: There are prominent disc osteophyte complexes at the L3-4, L4-5, and L5-S1 levels. IMPRESSION: 1. Free intraperitoneal air, suggestive of a perforated viscus. 2. Large amount of stool within the transverse and right colon. The cecum measures 8 cm in diameter. It is conceivable that the free air is secondary to a cecal perforation. Surgical consultation is recommended. 3. Small amount of free fluid 4. Cholelithiasis 5. 4.8 cm cystic left ovarian lesion ASSESSMENT AND PLAN: COLON PERFORATION : S/P Emergent Exploratory Laparotomy, Bowel Resection, Creation of Ileostomy, Left Salpingoopherectomy by Dr Powers today. -IV Fluids, IV Antibiotics- IV Invanz, IV Ampicillin. Received a dose of IV Vancomycin, IV Levophed- low dose -Post op wound care per primary team SEPTIC SHOCK: Hypotensive on presentation, during surgery and currently. -S/P IVF 5 Litres, on IVF 125 cc/hour, IV Levophed- low dose -Continue with IV antibiotics as above -Monitor closely in ICU RECENT HX OF UTI/BACTEREMIA/SEPSIS Was discharged from hospital on 07/21/16 on IV Invanz and PO Amoxicillin for E coli and Enterococcus. 1/2 bottles grew E coli/PCN sensitive enterococcus -Was supposed to received IV Invanz via PICC line and PO amoxicillin for 14 days. PICC line was removed by [facility] today and central line placed -Blood cultures - repeat pending -IV Invanz, IV Ampicillin. Received a dose of IV Vancomycin QUIANA ON CKD STAGE III - creatinine 1.4 on admission, last one was 0.8 - Likely secondary to sepsis/hypotension - Monitor HTN -Hypotensive and in shock currently -Diamox and lisinopril on hold. DM - hgb a1c 5.4 04/2016 -Holding oral agents and utilize SSI while hospitalized COPD -stable on home inhalers HYPOTHYROIDISM -IV levothyroxine DVT PROPHYLAXIS -SCDS/TEDS; Re post operative status GI PROPHYLAXIS PPI - IV DISPOSITION Prognosis guarded Discussed with sister by bedside , [employer].
[2016-07-30] MEDS: ALBUTEROL HFA 8 GM INHALER INH SCH ×2 (15:14→19:27)
[2016-07-30] MEDS: IPRATROPIUM BROMIDE HFA INHALER INH SCH ×2 (15:14→19:26)
[2016-07-30 15:24] LABS: COMPLETE YES; ECHINOCYTES 1+; EOS % 1.5 %; LYMPH % 21.1 %; LYMPH ABS # 0.43 K/uL (1.2-3.4); MONO % 7.8 %; NEUT % 69.6 %; OVALOCYTES 1+
[2016-07-30 15:27] LABS: ALB/GLOB RATIO 0.9 (0.9-2); BUN/CREATININE RATIO 15.9 (10-20); CALCIUM 6.7 mg/dl (8.5-10.1); CREATININE 1.2 mg/dl (0.60-1.20); MAGNESIUM 1.8 mg/dl (1.8-2.4); PHOSPHORUS 4.7 mg/dl (2.5-4.9); POTASSIUM 4.2 mmol/L (3.5-5.1)
[2016-07-30] MEDS ORDERED: FLUCONAZOLE / NSS 200 MG in PREMIXED NSS 100 ML IV ONE (15:30)
[2016-07-30 15:39] LABS: ISTAT ARTERIAL BLOOD GAS HCO3 14 meq/L (19-24); ISTAT ARTERIAL BLOOD GAS PCO2 39 mmHg (35-46); ISTAT ARTERIAL BLOOD GAS PO2 218 mmHg (80-95); ISTAT ARTERIAL BLOOD GAS pH 7.15 (7.35-7.45); ISTAT CARBON DIOXIDE 15 mEq/l (24-31); ISTAT DELIVERY SYSTEM Ventilator; ISTAT FIO2 50 %; ISTAT PEEP 5; ISTAT RATE 20; ISTAT SITE Art Line; VE 9; Vt 450
[2016-07-30] MEDS ORDERED: SODIUM BICARBONATE 8.4% INJ 50 MEQ in SODIUM CHLORIDE 0.45% 1000ML 1,000 ML IV SCH (15:45)
[2016-07-30 15:50] LABS: ISTAT CREATININE 0.9 mg/dl (0.6-1.3); ISTAT HEMOGLOBIN 7.5 g/dl (12.0-16.0); ISTAT IONIZED CALCIUM 1.14 mmol/l (1.12-1.32)
[2016-07-30] MEDS ORDERED: INSULIN ASPART 100 UNITS/ML 3 ML PEN SC SCH (16:00)
[2016-07-30] MEDS ORDERED: CALCIUM GLUCONATE 10% 1,000 MG in SODIUM CHLORIDE 0.9% 50ML 50 ML IV ONE (16:00)
[2016-07-30] MEDS ORDERED: ERTAPENEM IV 1 GM in SODIUM CHLOR 0.9% AD-VAN 50ML IV SCH (16:00)
--- NOTE | 2016-07-30 16:10 | CRITICAL CARE CONSULTATION ---
DATE OF CONSULTATION: 07/30/2016 CHIEF COMPLAINT: Abdominal pain. HISTORY OF PRESENT ILLNESS: The patient is a 71-year-old woman with a history of hypertension, diabetes type 2 and chronic obstructive pulmonary disease, for which she wears 2 liters of oxygen via nasal cannula. She presented to the Emergency Department this morning with abdominal pain, which started yesterday, which has become more severe. She had nausea without vomiting. She rated her pain as 10/10 and has felt constipated for the past several days. She received a suppository last evening and became lightheaded, so 911 was called. In the Emergency Department, she was hypotensive and received 1 liter of normal saline as well as Zofran 4 mg IV x1. Normal saline was then started at 250 mL per hour. She underwent a CT scan of the abdomen and pelvis after a 2-view abdomen showed pneumoperitoneum. The CT revealed free intraperitoneal air, large amount of stool within the transverse and right colon with the cecum measuring 8 cm in diameter, small amount of free fluid, cholelithiasis and 4.8-cm cystic ovarian lesion. Dr. Powers was consulted and he took her to the operating room today for an exploratory laparotomy, bowel resection, ileostomy and left salpingo-oophorectomy. There were no reported intraoperative complications. A right internal jugular triple lumen catheter and right radial arterial line were placed. There were no reported issues with her airway and she received 3 liters of crystalloid, 500 mL of albumin, and 1 unit of packed red blood cells. She had 200 mL estimated blood loss and 500 mL urine output. Attempts were made at extubation postop; however, she was slow to awaken. She was brought to the ICU intubated. This is a patient who was recently in the hospital, having been discharged on July 21 after a fall. During that admission, she was treated for sepsis and was seen by the infectious disease service. Her urine culture grew ESBL producing E. coli and one blood culture was positive for E. coli and Enterococcus faecalis. She was to complete 14 days of Invanz and p.o. amoxicillin at the [facility] facility. She had a PICC line placed on her last admission as well. Preoperatively today, she received Zosyn. PAST MEDICAL HISTORY: Hypertension, diabetes mellitus type 2, hypothyroidism, chronic obstructive pulmonary disease, chronic kidney disease, and depression. PAST SURGICAL HISTORY: None listed. ALLERGIES: No known drug allergies. In the chart, at times, penicillin is listed. To my knowledge, this has been discussed with the pharmacy and the patient has tolerated penicillins in the past. This penicillin has been taken off of her allergy list. OUTPATIENT MEDICATIONS: Acetaminophen p.r.n.; acetazolamide 250 mg t.i.d.; albuterol 2 puffs q.i.d.; Fosamax 70 mg weekly; Gaviscon p.r.n.; amoxicillin 500 mg p.o. t.i.d., last dose 08/04/2016; vitamin C 500 mg p.o. b.i.d.; Dulcolax p.r.n.; Rocaltrol 0.25 mcg q. Sunday, Sunday, and Sunday; Citracal plus vitamin D 1 tab daily; Zyrtec 5 mg daily; Colace 50 mg daily; Invanz 1 gram IV daily, started on July 22 for 10 days; Flonase 2 sprays daily; Lactinex 4 tabs t.i.d.; levothyroxine 75 mcg daily; lisinopril 2.5 mg daily; milk of magnesia 30 mL p.r.n. constipation; metformin 500 mg b.i.d.; multivitamin daily, Pravachol 20 mg daily; sertraline 50 mg daily, Fleet enema p.r.n., and Anoro Ellipta 62.5/25 mcg 1 puff daily. SOCIAL HISTORY: The patient has never been and is a former smoker. She was living at home before her fall several weeks ago. FAMILY HISTORY: Noncontributory. REVIEW OF SYSTEMS: Not obtainable as the patient is intubated and sedated. All history has been taken from the chart. PHYSICAL EXAMINATION: VITAL SIGNS: Temperature 36.7, heart rate 69, respiratory rate 20, blood pressure 114/55, and oxygen saturation 95%. VENTILATOR SETTINGS: Assist control, tidal volume 450, rate 16, FiO2 50%, and PEEP 5. NEUROLOGIC: Pupils are equally round and reactive to light. She is unresponsive to painful stimuli immediately postoperatively. HEENT: A 7.5 endotracheal tube is in place. Oral examination is deferred. NECK: There is a right internal jugular triple lumen catheter sutured in place. No bleeding. LUNGS: Coarse bilaterally and decreased breath sounds throughout. No rales, rhonchi or wheezes. HEART: Regular rate and rhythm, distant. No murmurs. ABDOMEN: Distended and firm. There is a bulky dressing, which is clean, dry and intact and covers most of the abdomen. There are drains in the bilateral lower quadrants with serosanguineous fluid in the bulbs. There is a colostomy in the right lower quadrant, which is difficult to visualize due to the bag. I believe it is pink. EXTREMITIES: Warm with 1+ dorsalis pedis and radial pulses. LABORATORY DATA: Postop labs have been ordered and are pending. This morning, white blood cell count 6.18, hemoglobin 9.2, hematocrit 28.9, and platelets 356. ABG, pH 7.03, pCO2 of 42, pO2 of 165, and HCO3 of 11. PT, PTT, and INR within normal limits. Sodium 144, potassium 3.5, chloride 113, CO2 of 19, BUN 20, creatinine 1.4, and blood sugar 151. Lactic acid 2.96. AST 8. Troponin negative. Albumin 2.4. CPK 17. Blood cultures are pending. Intraoperative Gram stain shows moderate yeast and rare gram positive bacilli. Postop chest x-ray shows the endotracheal tube to be about 5 cm above the edmundo. The tip of the triple lumen catheter is in the right atrium. No pneumothorax and no definite infiltrates. Preoperative EKG shows normal sinus rhythm with nonspecific ST-T wave changes. IMPRESSION: 1. Septic shock secondary to perforated viscus. 2. Status post exploratory laparotomy, bowel resection with ileostomy and left salpingo-oophorectomy, intraoperative Gram stain revealing rare gram positive bacilli and moderate yeast. 3. Acute respiratory failure secondary to #1. 4. Acute kidney injury on chronic kidney disease with metabolic acidosis. Likely secondary to acute tubular necrosis. 5. Recent admission secondary to a fall. 6. Recent extended-spectrum beta-lactamase producing Escherichia coli urinary tract infection and blood culture with Escherichia coli and Enterococcus faecalis. 7. History of oxygen dependent chronic obstructive pulmonary disease. 8. Diabetes mellitus type 2. 9. Anemia, no signs of blood loss, likely dilutional and status post 1 unit of packed red blood cells intraoperatively. 10. High riding endotracheal tube and a triple lumen catheter, which should be pulled back. Also, status post recent PICC line. 11. History of hypothyroidism. PLAN: NEUROLOGIC: Fentanyl p.r.n. for pain. Propofol if necessary. I do not expect she will be extubated today and anticipate fluid shifts secondary to sepsis and peritonitis. PULMONARY: Endotracheal tube has been advanced. I will resume scheduled bronchodilators. Adjust the ventilator for her metabolic acidosis and recheck arterial blood gas. Keep head of bed at 30 degrees, she is receiving chlorhexidine mouthwash. CARDIOVASCULAR: Continue volume resuscitation, Levophed has been started. The triple lumen catheter has been adjusted and secured with Statlocks x2. Trend troponins and discontinue PICC line. INFECTIOUS DISEASE: I had several discussions with the pharmacy. She will continue to receive Invanz and ampicillin. Consider fluconazole secondary to intraoperative Gram stain. Blood cultures are pending. GASTROINTESTINAL: NG tube to low intermittent suction. I should note that her fascia has been closed, but the skin has not. Watch for return of bowel function. Proton pump inhibitor for GI prophylaxis. HEMATOLOGY: Continue to follow blood counts and await postop labs. SCDs for DVT prophylaxis. RENAL: I expect I will be adding sodium bicarbonate to her IV fluids. She has received 2 amps of sodium bicarbonate postoperatively as well. Replete electrolytes. ENDOCRINE: Begin conservative sliding scale insulin q. 4 hours. Her care was discussed with Dr. Mauricio from anesthesiology service. After Dr. Mauricio, I have consulted the hospitalist service and spoken to Dr. Delgado. Please call me with any questions or concerns. Critical care time 60 minutes. MTDD
[2016-07-30] MEDS: AMPICILLIN IV 1 GM in SODIUM CHLOR 0.9% AD-VAN 50ML 50 ML IV SCH ×2 (16:12→22:37)
[2016-07-30] MEDS ORDERED: FLUCONAZOLE / NSS 200 MG in PREMIXED NSS 100 ML IV SCH (16:30)
[2016-07-30] MEDS: SODIUM BICARBONATE IV SCH ×2 (16:53→23:43)
[2016-07-30] MEDS: [UNRECOGNIZED DRUG - OTHER] IV SCH ×2 (16:53→23:43)
[2016-07-30] MEDS: D5W IV SCH ×2 (16:53→23:43)
[2016-07-30] MEDS: ALUMINUM/MAGNESIUM SUSP 30 ML UDC NG SCH ×2 (16:54→20:47)
[2016-07-30 18:22] LABS: ISTAT ARTERIAL BLOOD GAS HCO3 14 meq/L (19-24); ISTAT ARTERIAL BLOOD GAS PCO2 34 mmHg (35-46); ISTAT ARTERIAL BLOOD GAS PO2 183 mmHg (80-95); ISTAT ARTERIAL BLOOD GAS pH 7.21 (7.35-7.45); ISTAT CARBON DIOXIDE 15 mEq/l (24-31); ISTAT DELIVERY SYSTEM Ventilator; ISTAT FIO2 40 %; ISTAT PEEP 5; ISTAT RATE 20; ISTAT SITE Art Line; VE 9; Vt 450
[2016-07-30] MEDS ORDERED: NURSING VERBAL MED ORDER ONE ×3 (19:30→22:30)
[2016-07-30] MEDS ORDERED: FENTANYL 1250MCG/250ML NSS IV PRN (19:45)
[2016-07-30] MEDS: FENTANYL CITRATE INJ 50 MCG/1 ML 2 ML VIAL IV PRN (19:49)
[2016-07-30] MEDS: CHLORHEXIDINE GLUCONATE 0.12% 480 ML MT SCH (20:47)
[2016-07-30] MEDS ORDERED: VANCOMYCIN INJ 500 MG in SODIUM CHLORIDE 0.9% 250ML 250 ML IV SCH (21:00)
[2016-07-30 21:15] LABS: HEMATOCRIT 29.8 % (37-47)
[2016-07-30 21:20] LABS: ISTAT ALLEN TEST Pass; ISTAT ARTERIAL BLOOD GAS HCO3 14 meq/L (19-24); ISTAT ARTERIAL BLOOD GAS PCO2 35 mmHg (35-46); ISTAT ARTERIAL BLOOD GAS PO2 180 mmHg (80-95); ISTAT ARTERIAL BLOOD GAS pH 7.22 (7.35-7.45); ISTAT CARBON DIOXIDE 15 mEq/l (24-31); ISTAT DELIVERY SYSTEM Ventilator; ISTAT FIO2 40 %; ISTAT PEEP 5; ISTAT RATE 22; ISTAT SITE L Radial; VE 12.1; Vt 450
[2016-07-30 21:46] LABS: BLOOD UREA NITROGEN 19 mg/dl (7-18); BUN/CREATININE RATIO 17.3 (10-20); CARBON DIOXIDE 17 mmol/L (21-32); CHLORIDE 113 mmol/L (98-107); GLUCOSE 143 mg/dl (70-99); POTASSIUM 3.9 mmol/L (3.5-5.1); SODIUM 144 mmol/L (136-145)
[2016-07-30] MEDS ORDERED: CALCIUM GLUCONATE 10% 1,000 MG in SODIUM CHLORIDE 0.9% 50ML 50 ML IV STA (22:36)
[2016-07-30] MEDS ORDERED: ALBUMIN HUMAN 25% 12.5 GM/50 ML VIAL IV STA (22:37)
[2016-07-30] MEDS: INSULIN ASPART 100 UNITS/ML 3 ML PEN SC SCH (23:43)
[2016-07-31] VITALS (48 sets, daily range): BP systolic 75–119; BP diastolic 34–59; PULSE 87–106; TEMP 36.6–37.7; O2SAT 90–99
[2016-07-31] MEDS: NOREPINEPHRINE BIT INJ 8 MG in DEXTROSE 5% 500ML 500 ML IV PRN (00:03)
[2016-07-31] MEDS: FENTANYL CITRATE INJ 50 MCG/1 ML 2 ML VIAL IV PRN ×3 (00:52→08:14)
[2016-07-31] MEDS: ALBUTEROL HFA 8 GM INHALER INH SCH ×2 (02:07→07:25)
[2016-07-31] MEDS: IPRATROPIUM BROMIDE HFA INHALER INH SCH ×2 (02:07→07:25)
[2016-07-31] MEDS: AMPICILLIN IV 1 GM in SODIUM CHLOR 0.9% AD-VAN 50ML 50 ML IV SCH ×2 (04:44→09:35)
--- NOTE | 2016-07-31 04:58 | OPERATIVE REPORT ---
DATE OF OPERATION: 07/30/2016 PREOPERATIVE DIAGNOSIS: Perforation of the right colon with intra-abdominal fecal contamination and left ovarian cystic lesions. POSTOPERATIVE DIAGNOSIS: Same. PROCEDURES: Exploratory laparotomy, resection of right colon and hepatic flexure with formation of ileostomy and mucous fistula. Additional part of the procedure was a left salpingo-oophorectomy performed by Dr. Lockwood who will dictate that portion of the procedure. FINDINGS: The patient had a right colon perforation in an area that appeared ischemic just above the cecum. There was a lot of turbid fluid within the abdomen upon entering that was cultured. Upon mobilizing the right colon, it was clear that there was also a feculent material that was coming from the dilated right colon which was markedly dilated up to around the hepatic flexure. The wall of the hepatic flexure from the junction between the proximal and middle third appeared normal. The remainder of the transverse colon and left colon as well as the sigmoid appeared normal. The small bowel was mildly dilated throughout but was also normal in appearance. The liver was of normal size and contour. The NG tube was in the stomach. The right ovary was being atrophic and the cecum was normal. The right ovary measuring at least 4 cm. It had a cystic appearance to it. There was no adhesion to that. There was no evidence of intra-abdominal carcinomatosis. TECHNIQUE: The patient was given a general anesthetic and the area was prepped and draped in usual sterile fashion. Vertical midline incision was made, carried down through the subcutaneous tissue to the fascia which was grasped with 2 Gifty clamps and incised between. The peritoneum was identified, incised and the abdomen was entered. The layers were opened along the length of the skin incision and exploration was performed with findings as above. The stool evacuated from the colon was removed and the hole in the colon was oversewn to control contamination using a running 2-0 silk suture. The decision was then made to perform the right colectomy removing the hepatic flexure as well. The small bowel was retracted towards the left side of the abdomen. Began at the cecum, the line of Toldt was divided. The bowel was rolled medially and I worked from the inferior to superior towards the hepatic flexure. The hepatic flexure went deep behind the right lobe of the liver. I was able to mobilize it medially, but had a difficult time identifying the superior most aspect of the flexure and its attachments. At that point, I then divided the gastrocolic ligament at the junction of the proximal and middle thirds of the transverse colon and then continued to divide attachments working from medial to lateral. This was done using cautery. Once those attachments were divided, I was then able to obtain and isolate using blunt dissection. The peritoneal attachments were divided allowing me to reflect the colon medially and inferiorly. I divided additional peritoneal attachments and that allowed me to completely mobilize the colon. I then divided the gastrocolic ligament working from lateral to medial mobilizing the mid portion of the sigmoid colon. I then chose the site for division of the transverse colon and the mesentery away from the wall. The proximal portion of the transverse colon was also friable. I the mesentery away from the transverse colon and I divided the transverse colon using the Endo-RJ. I then mobilized the terminal ileum retracting it medially and I decided on a site for division of the ileum the mesentery away from the wall, dividing it using the RJ as well. The intervening portion of the mesentery was then divided using a clamp-clamp, divide, and ligate technique until the right colon was removed. The abdomen was then irrigated with a copious amount of saline solution and also cleaning as much of the omentum as I could cleaning any of the stool away from that. The return was eventually clear. The left ovary and tube were then removed and that will be dictated by Dr. Lockwood. Once that was completed, the site for placement of the ileostomy was chosen. The skin was elevated and a circular portion removed. The subcutaneous tissue was opened using the cautery down to the fascia which was opened in a cruciate incision. The peritoneum was identified after splitting the muscle, opened and the terminal ileum was brought out through that opening. I came out without tension. The site for the formation of the mucous fistula was chosen. The skin was elevated there, a circular portion removed. The subcutaneous tissue was divided down to the fascia which was opened with a cruciate incision. This muscle was split. Peritoneum was opened and the transverse colon was brought out through there. Two Spencer drains were then placed, 1 on the left side through a stab incision and then placed along the gutter and into the pelvis. A similar drain was placed on the right side and also into the pelvis. These were secured with 3-0 nylon. The midline fascia was then closed with a running #1 PDS. The ileostomy was matured in a Linda fashion using 3-0 Vicryl sutures. The mucous fistula was secured to the skin, taking full thickness bites of the bowel into the dermis. The wound was irrigated and then packed and dressings were placed. The estimated blood loss was 200 mL. Sponge, needle, and instrument counts were correct prior to closure. The patient tolerated the surgical procedure without complication and was transferred to recovery. I attest to the content of the Intraoperative Record and any orders documented therein. Any exceptions are noted below. MTDD
[2016-07-31] MEDS: INSULIN ASPART 100 UNITS/ML 3 ML PEN SC SCH ×3 (06:00→18:43)
[2016-07-31] MEDS: [UNRECOGNIZED DRUG - OTHER] IV SCH (06:30)
[2016-07-31] MEDS: D5W IV SCH (06:30)
[2016-07-31] MEDS: SODIUM BICARBONATE IV SCH (06:30)
[2016-07-31 06:32] LABS: HEMATOCRIT 25.6 % (37-47); MEAN CORPUSCULAR HEMOGLOBIN 26.6 pg (25-34); MEAN PLATELET VOLUME 9.8 fL (7.4-10.4); PLATELET COUNT 209 K/uL (130-400); RED BLOOD COUNT 3.01 M/uL (4.2-5.4); WHITE BLOOD COUNT 5.69 K/uL (4.8-10.8)
[2016-07-31 06:57] LABS: ESTIMATED AVERAGE GLUCOSE 111 mg/dl; HA1C FLAG Normal (Normal)
[2016-07-31 07:00] LABS: BASO % 0.2 %; BASO ABS # 0.01 K/uL (0-0.2); COMPLETE YES; EOS % 1.2 %; IG% 1.2 %; LYMPH % 15.6 %; LYMPH ABS # 0.89 K/uL (1.2-3.4); MEAN CORPUSCULAR HGB CONC 31.3 g/dl (32-36); MONO % 3.7 %; NEUT % 78.1 %
[2016-07-31 07:08] LABS: BUN/CREATININE RATIO 18.4 (10-20); CALCIUM 6.9 mg/dl (8.5-10.1); MAGNESIUM 1.7 mg/dl (1.8-2.4); PHOSPHORUS 3.3 mg/dl (2.5-4.9); POTASSIUM 3.6 mmol/L (3.5-5.1)
--- NOTE | 2016-07-31 07:45 | DIAGNOSTIC IMAGING REPORT ---
CHEST ONE VIEW PORTABLE HISTORY: sepsis, resp failure COMPARISON: Chest 07/30/2016. FINDINGS: Endotracheal tube terminates 3 cm from the edmundo. Nasogastric tube terminates below the diaphragm. The tip is not included on this study. Right jugular central venous catheter terminates in the SVC. No pneumothorax. The heart is normal in size. No evidence for pulmonary edema. No new focal lung consolidations to suggest pneumonia. Suspect trace bilateral pleural effusions. IMPRESSION: 1. Satisfactory support line placement. 2. Trace bilateral pleural effusions. Electronically signed by: Thomas Pang M.D. 07/31/2016 7:44 AM Dictated Date/Time: 07/31/2016 7:42 AM
[2016-07-31] MEDS ORDERED: CASPOFUNGIN INJ 70 MG in SODIUM CHLORIDE 0.9% 250ML 250 ML IV ONE (08:30)
--- NOTE | 2016-07-31 08:36 | OPERATIVE REPORT ---
DATE OF OPERATION: 07/30/2016 CLINICAL NOTE: I was asked by Dr. Дмитрий Powers to assess a left ovarian mass at the time of colon surgery. The patient had a perforated colon and at the time of laparotomy Dr. Powers noticed a cystic mass on the left ovary and I was asked to assess. PREOPERATIVE DIAGNOSIS: Left ovarian mass. POSTOPERATIVE DIAGNOSIS: Left ovarian mass. PROCEDURE: Left salpingo-oophorectomy. SURGEON: Dr. Lockwood. G[employer]PLIANCE SERVICER HELPER: Dr. Powers. ESTIMATED BLOOD LOSS: 30 mL from this part of the procedure. DRAINS: Ward catheter. ANESTHETIC: General. Rest of the note per Dr. Powers in the main operative note. On assessment of the mass, there were no excrescences on the mass and as well it looked cystic with some solid elements, it actually had the appearance of a serous cystadenoma. Because of this abnormality and the patient's age of 71, I did recommend it be removed. At this stage, we assessed the pelvis, packed off the bowels, and then sutured the round ligament with 0 Vicryl, opened the broad ligament, identified the ureter on the left side, attached to the medial leaf of the broad ligament, made a window above the ureter to encompass the ovarian artery and vein and clamped this with a right angle clamp, and then on both proximal and distal blood supplies to this, cut this and then sutured with 0 Vicryl, 2 ties on the ovarian pedicle. We then detached the left ovary from the pelvic sidewall and then the distal blood supply of the uteroovarian blood supply was clamped and cut in the same fashion and tied with 0 Vicryl. Specimen was removed. There was a small amount of bleeding in one of the edges, which was stopped with a right angle clamp and 0 Vicryl tie as well. At this stage, hemostasis was excellent and the surgery was passed back on to Dr. Powers to complete. The left ovary was sent for permanent pathology. I attest to the content of the Intraoperative Record and any orders documented therein. Any exceptio ns are noted below.
[2016-07-31] MEDS: LEVOTHYROXINE SODIUM INJ 37.5 MCG in SYRINGE 0 ML IV SCH (08:37)
[2016-07-31] MEDS: MAGNESIUM SULFATE 1GM / D5W 1 GM in PREMIXED IN D5W 100 ML IV SCH ×2 (08:37→09:32)
[2016-07-31] MEDS ORDERED: KETAMINE HCL INJ 50 MG/ML 10 ML VIAL IV STA (08:39)
[2016-07-31] MEDS ORDERED: LACTATED RINGER'S 1000ML 1,000 ML IV ONE (08:45)
[2016-07-31 09:01] LABS: ISTAT ALLEN TEST Pass; ISTAT ARTERIAL BLOOD GAS HCO3 20 meq/L (19-24); ISTAT ARTERIAL BLOOD GAS PCO2 35 mmHg (35-46); ISTAT ARTERIAL BLOOD GAS PO2 109 mmHg (80-95); ISTAT ARTERIAL BLOOD GAS pH 7.36 (7.35-7.45); ISTAT CARBON DIOXIDE 21 mEq/l (24-31); ISTAT DELIVERY SYSTEM Ventilator; ISTAT FIO2 30 %; ISTAT PEEP 5; ISTAT SITE L Radial
[2016-07-31] MEDS ORDERED: ENOXAPARIN 40 MG/0.4 ML SYR SQ ONE (09:05)
[2016-07-31] MEDS ORDERED: KETAMINE HCL IV ONE (09:30)
[2016-07-31] MEDS: ALUMINUM/MAGNESIUM SUSP 30 ML UDC NG SCH ×4 (09:31→19:51)
[2016-07-31] MEDS: CHLORHEXIDINE GLUCONATE 0.12% 480 ML MT SCH ×2 (09:32→19:51)
[2016-07-31] MEDS: POTASSIUM ACETATE INJ 20 MEQ in SODIUM CHLORIDE 0.9% 100ML 100 ML IV SCH ×2 (10:37→12:59)
--- NOTE | 2016-07-31 10:57 | Progress Note ---
Internal Med Progress Note Date of Service: July 31, 2016. Provider Documentation: SUBJECTIVE: The patient was seen and examined Intubated in ICU -AAOx3 Has been on Pressor agent Has Abdominal pain and general discomfort OBJECTIVE: Vital Signs-as noted below Exam: General-No distress at rest On Vent Eyes-normal ENT-normal Neck-supple Lungs-clear to auscultate bilaterally Heart-Regular,no murmur appreciated Abdomen-S/P Colostomy ,soft,tender,bowel sound sluggish Extremities-No edema Neuro-AAOx3 Lab data as noted below. ASSESSMENT & PLAN: PERFORATION OF COLON S/P Emergent Exploratory Laparotomy, Bowel Resection, Creation of Colostomy, Left Salpingo-oophorectomy by Dr Powers 07/30/16. Continue IV Fluids, IV Antibiotics- IV Invanz, IV Ampicillin and IV Caspofungin. Received a dose of IV Vancomycin, IV Levophed- low dose Clinically stable and improving SEPTIC SHOCK: Secondary to Colon Perforation Hypotensive on presentation, during surgery and currently. -S/P IVF 5 Liters, on IVF 125 cc/hour, IV Levophed- low dose to maintain BP -Continue with IV antibiotics as above -Cultures pending -BP is improving QUIANA ON CKD STAGE III - creatinine 1.4 on admission, last one was 0.8 - Likely secondary to sepsis -received IVF and will continue -Renal function is Improved RECENT HX OF UTI/BACTEREMIA Was discharged from hospital on 07/21/16 on IV Invanz and PO Amoxicillin for E coli and Enterococcus. 1/2 bottles grew E coli/PCN sensitive enterococcus -Was supposed to received IV Invanz via PICC line and PO amoxicillin for 14 days. PICC line was removed by Silver Wrapper today and central line placed -Blood cultures - repeat pending -IV Invanz, IV Ampicillin. Received a dose of IV Vancomycin HTN -Hypotensive and in shock currently -Diamox and lisinopril on hold. -will wean off Levophed DM - hgb a1c 5.4 04/2016 -Holding oral agents and utilize SSI while hospitalized -ACHS -blood sugar COPD -No acute issue -stable on home inhalers -Nebs as needed HYPOTHYROIDISM -IV levothyroxine DVT PROPHYLAXIS -SCDS/TEDS; Re post operative status GI PROPHYLAXIS PPI - IV DISPOSITION Prognosis guarded Vital Signs: Date Time Temp Pulse Resp B/P Pulse Ox O2 Delivery O2 Flow Rate FiO2 5/8/17 09:17 101 27 94/50 97 Mechanical Ventilator 30 07/31/16 08:00 97 Mechanical Ventilator 30 07/31/16 08:00 30 07/31/16 08:00 37.7 104 28 107/58 97 Mechanical Ventilator 30 07/31/16 07:25 30 07/31/16 06:00 37.0 92 27 113/53 97 Mechanical Ventilator 30 07/31/16 05:00 92 25 117/45 97 Mechanical Ventilator 30 07/31/16 04:50 30 07/31/16 04:03 98 Mechanical Ventilator 30 07/31/16 04:03 30 07/31/16 04:00 95 22 95/49 96 07/31/16 04:00 37.0 95 22 95/49 96 Mechanical Ventilator 30 07/31/16 03:00 98 24 117/55 Mechanical Ventilator 30 07/31/16 02:07 30 07/31/16 02:00 93 25 119/58 97 Mechanical Ventilator 30 07/31/16 01:00 91 23 112/51 Mechanical Ventilator 30 07/31/16 00:07 30 07/31/16 00:07 98 Mechanical Ventilator 30 07/31/16 00:00 37.0 87 26 110/53 Mechanical Ventilator 30 07/30/16 23:02 30 07/30/16 23:00 84 26 111/56 Mechanical Ventilator 30 07/30/16 22:00 86 24 101/63 Mechanical Ventilator 40 07/30/16 21:00 81 27 115/52 96 Mechanical Ventilator 40 07/30/16 20:34 98 Mechanical Ventilator 40 07/30/16 20:34 40 07/30/16 20:00 37.0 81 22 95/58 Mechanical Ventilator 40 07/30/16 19:27 40 07/30/16 19:00 80 25 92/57 Mechanical Ventilator 40 07/30/16 18:24 40 07/30/16 18:08 36.7 80 20 89/48 99 Mechanical Ventilator 40 07/30/16 16:00 36.6 79 24 90/49 100 Mechanical Ventilator 40 07/30/16 16:00 40 07/30/16 16:00 Mechanical Ventilator 40 07/30/16 14:21 50 07/30/16 14:00 36.6 74 20 75/45 100 Mechanical Ventilator 40 07/30/16 13:45 36.6 78 20 72/42 100 Mechanical Ventilator 07/30/16 13:35 36.6 80 20 87/45 100 Mechanical Ventilator 07/30/16 13:25 36.6 82 20 82/48 100 Mechanical Ventilator 07/30/16 13:15 36.6 87 20 77/57 100 Mechanical Ventilator Lab Results: Results Past 24 Hours Test 07/30/16 11:10 07/30/16 13:58 07/30/16 14:37 07/30/16 15:24 Range/Units Bedside Hemoglobin 7.5 12.0-16.0 g/dl Bedside Hematocrit 22 37-47 % Bedside Sodium 141 135-144 mEq/L Bedside Potassium 3.5 3.3-5.0 mEq/L Bedside Chloride 116 101-112 mEq/L Bedside Total CO2 14 24-31 mEq/l Anion Gap 15.0 12.0 3-11 mmol/L Bedside Blood Urea Nitrogen 17 7-18 mg/dl Bedside Creatinine 0.9 0.6-1.3 mg/dl Bedside Glucose (other) 142 70-99 mg/dl Bedside Ionized Calcium (Lydia) 1.14 1.12-1.32 mmol/l Blood Gas Sample Site Art Line Art Line Bedside Blood Gas pH (LAB) 7.03 7.15 7.35-7.45 Bedside Blood Gas pCO2 (LAB) 42 39 35-46 mmHg Bedside Blood Gas pO2 (LAB) 165 218 80-95 mmHg Bedside Blood Gas HCO3 (LAB) 11 14 19-24 meq/L Bedside Blood Gas Total CO2 12 15 24-31 mEq/l Bedside Blood Gas Base Excess (LAB) -20.0 -15.0 -9-1.8 meq/L Bedside Blood Gas O2 Saturation 98.0 100.0 90-95 % Panda Test NA NA Oxygen Delivery Device Ventilator Ventilator Bedside Oxygen Rate (breaths/min) 16 20 Blood Gas Minute Ventilation 9 9 Bedside FiO2 50 50 % Blood Gas Tidal Volume 450 450 Blood Gas PEEP 5 5 White Blood Count 2.04 4.8-10.8 K/uL Red Blood Count 3.25 4.2-5.4 M/uL Hemoglobin 8.9 12.0-16.0 g/dL Hematocrit 29.0 37-47 % Mean Corpuscular Volume 89.2 80-100 fL Mean Corpuscular Hemoglobin 27.4 25-34 pg Mean Corpuscular Hemoglobin Concent 30.7 32-36 g/dl Platelet Count 242 130-400 K/uL Mean Platelet Volume 9.7 7.4-10.4 fL Neutrophils (%) (Auto) 69.6 % Lymphocytes (%) (Auto) 21.1 % Monocytes (%) (Auto) 7.8 % Eosinophils (%) (Auto) 1.5 % Basophils (%) (Auto) 0.0 % Neutrophils # (Auto) 1.42 1.4-6.5 K/uL Lymphocytes # (Auto) 0.43 1.2-3.4 K/uL Monocytes # (Auto) 0.16 0.11-0.59 K/uL Eosinophils # (Auto) 0.03 0-0.5 K/uL Basophils # (Auto) 0.00 0-0.2 K/uL RDW Standard Deviation 56.2 36.4-46.3 fL RDW Coefficient of Variation 16.9 11.5-14.5 % Immature Granulocyte % (Auto) 0.0 % Immature Granulocyte # (Auto) 0.00 0.00-0.02 K/uL Ovalocytes 1+ Echinocytes 1+ Sodium Level 149 136-145 mmol/L Potassium Level 4.2 3.5-5.1 mmol/L Chloride Level 117 98-107 mmol/L Carbon Dioxide Level 20 21-32 mmol/L Blood Urea Nitrogen 19 7-18 mg/dl Creatinine 1.20 0.60-1.20 mg/dl Est Creatinine Clear Calc Drug Dose 43.0 ml/min Estimated GFR () 53.0 Estimated GFR (Non- 45.8 BUN/Creatinine Ratio 15.9 10-20 Random Glucose 131 70-99 mg/dl Lactic Acid Level 2.9 0.4-2.0 mmol/L Calcium Level 6.7 8.5-10.1 mg/dl Phosphorus Level 4.7 2.5-4.9 mg/dl Magnesium Level 1.8 1.8-2.4 mg/dl Total Bilirubin 0.4 0.2-1 mg/dl Aspartate Amino Transf (AST/SGOT) 22 15-37 U/L Alanine Aminotransferase (ALT/SGPT) 14 12-78 U/L Alkaline Phosphatase 33 45-117 U/L Troponin I < 0.015 0-0.045 ng/ml Total Protein 4.2 6.4-8.2 gm/dl Albumin 2.0 3.4-5.0 gm/dl Globulin 2.2 2.5-4.0 gm/dl Albumin/Globulin Ratio 0.9 0.9-2 Test 07/30/16 18:09 07/30/16 21:07 07/30/16 23:42 07/31/16 06:18 Range/Units Blood Gas Sample Site Art Line L Radial Bedside Blood Gas pH (LAB) 7.21 7.22 7.35-7.45 Bedside Blood Gas pCO2 (LAB) 34 35 35-46 mmHg Bedside Blood Gas pO2 (LAB) 183 180 80-95 mmHg Bedside Blood Gas HCO3 (LAB) 14 14 19-24 meq/L Bedside Blood Gas Total CO2 15 15 24-31 mEq/l Bedside Blood Gas Base Excess (LAB) -14.0 -13.0 -9-1.8 meq/L Bedside Blood Gas O2 Saturation 99.0 99.0 90-95 % Panda Test NA Pass Oxygen Delivery Device Ventilator Ventilator Bedside Oxygen Rate (breaths/min) 20 22 Blood Gas Minute Ventilation 9 12.1 Bedside FiO2 40 40 % Blood Gas Tidal Volume 450 450 Blood Gas PEEP 5 5 Hemoglobin 9.4 12.0-16.0 g/dL Hematocrit 29.8 37-47 % Sodium Level 144 136-145 mmol/L Potassium Level 3.9 3.5-5.1 mmol/L Chloride Level 113 98-107 mmol/L Carbon Dioxide Level 17 21-32 mmol/L Anion Gap 14.0 3-11 mmol/L Blood Urea Nitrogen 19 7-18 mg/dl Creatinine 1.10 0.60-1.20 mg/dl Est Creatinine Clear Calc Drug Dose 46.9 ml/min Estimated GFR () 58.9 Estimated GFR (Non- 50.8 BUN/Creatinine Ratio 17.3 10-20 Random Glucose 143 70-99 mg/dl Lactic Acid Level 2.7 0.4-2.0 mmol/L Calcium Level 7.0 8.5-10.1 mg/dl Troponin I < 0.015 0-0.045 ng/ml Bedside Glucose (other) 162 149 70-99 mg/dl Test 07/31/16 06:21 07/31/16 08:42 07/31/16 08:49 07/31/16 09:18 Range/Units White Blood Count 5.69 4.8-10.8 K/uL Red Blood Count 3.01 4.2-5.4 M/uL Hemoglobin 8.0 12.0-16.0 g/dL Hematocrit 25.6 37-47 % Mean Corpuscular Volume 85.0 80-100 fL Mean Corpuscular Hemoglobin 26.6 25-34 pg Mean Corpuscular Hemoglobin Concent 31.3 32-36 g/dl Platelet Count 209 130-400 K/uL Mean Platelet Volume 9.8 7.4-10.4 fL Neutrophils (%) (Auto) 78.1 % Lymphocytes (%) (Auto) 15.6 % Monocytes (%) (Auto) 3.7 % Eosinophils (%) (Auto) 1.2 % Basophils (%) (Auto) 0.2 % Neutrophils # (Auto) 4.44 1.4-6.5 K/uL Lymphocytes # (Auto) 0.89 1.2-3.4 K/uL Monocytes # (Auto) 0.21 0.11-0.59 K/uL Eosinophils # (Auto) 0.07 0-0.5 K/uL Basophils # (Auto) 0.01 0-0.2 K/uL RDW Standard Deviation 53.8 36.4-46.3 fL RDW Coefficient of Variation 17.3 11.5-14.5 % Immature Granulocyte % (Auto) 1.2 % Immature Granulocyte # (Auto) 0.07 0.00-0.02 K/uL Red Blood Cell Morphology Unremarkable Sodium Level 142 136-145 mmol/L Potassium Level 3.6 3.5-5.1 mmol/L Chloride Level 110 98-107 mmol/L Carbon Dioxide Level 22 21-32 mmol/L Anion Gap 10.0 3-11 mmol/L Blood Urea Nitrogen 18 7-18 mg/dl Creatinine 1.00 0.60-1.20 mg/dl Est Creatinine Clear Calc Drug Dose 52.7 ml/min Estimated GFR () 66.1 Estimated GFR (Non- 57.0 BUN/Creatinine Ratio 18.4 10-20 Random Glucose 147 70-99 mg/dl Estimated Average Glucose 111 mg/dl Hemoglobin A1c 5.5 4.5-5.6 % Lactic Acid Level 2.5 0.4-2.0 mmol/L Calcium Level 6.9 8.5-10.1 mg/dl Phosphorus Level 3.3 2.5-4.9 mg/dl Magnesium Level 1.7 1.8-2.4 mg/dl Ionized Calcium 1.02 1.12-1.32 mmol/l Lipase 38 73-393 U/L Random Cortisol 39.24 mcg/dl Blood Gas Sample Site L Radial Bedside Blood Gas pH (LAB) 7.36 7.35-7.45 Bedside Blood Gas pCO2 (LAB) 35 35-46 mmHg Bedside Blood Gas pO2 (LAB) 109 80-95 mmHg Bedside Blood Gas HCO3 (LAB) 20 19-24 meq/L Bedside Blood Gas Total CO2 21 24-31 mEq/l Bedside Blood Gas Base Excess (LAB) -6.0 -9-1.8 meq/L Bedside Blood Gas O2 Saturation 98.0 90-95 % Panda Test Pass Oxygen Delivery Device Ventilator Bedside FiO2 30 % Blood Gas PEEP 5 Lab Scanned Report Blood Transfusion Tag [id number] Microbiology Results 07/31/16 Blood Culture, Received Pending 07/31/16 Fungal Smear, Received Pending 07/31/16 Fungal Culture, Received Pending 07/30/16 MRSA DNA Surveillance Screen - Final, Complete Specimen Negative for MRSA by DNA Probe
[2016-07-31] MEDS: PANTOprazole INJ 40 MG in SYRINGE 0 ML IV SCH (11:49)
--- NOTE | 2016-07-31 11:57 | Critical Care Progress Note ---
Critical Care Progress Note Date of Service July 31, 2016. ICU Day ICU Day Number: [address] Mills Subjective Patient notes mild headache and back pain No events overnight on monitor Patient cannot vocally answer questions, as she intubated Objective Physical Exam: General: Comfortable, no apparent distress Eyes: PERRL, normal EOM bilaterally ENT: Mucous membranes moist, pharynx clear, TM clear, ET tube in place, no evidence of cuff leak Neck: No JVD, no lymphadenopathy, no thyromegaly Lungs: Clear to auscultation bilaterally, no wheezing, no crackles, diminished at the bases; unable to auscultate posterior lung ruffin Heart: S1 and S2 with no added sounds or murmurs Abdomen: Did not palpate to recent surgery; MARIBEL drains x 2, draining well Extremities: No pitting edema, no asymmetric swelling, no calf pain or tenderness Neuro: Alert, orientation could not be assessed verbally, normal attention, responds to commands appropriately, normal mood and affect Current SOFA Score SOFA Score Response (Comments) Value PaO2/FiO2 (mmHg) < 400 1 Varsha Coma Score 13 - 14 1 Level of Hypotension No Hypotension (Patient on Levofed) 0 Creatinine (mg/dL) 1.2 - 1.9 1 Total 3 Assessment & Plan 71 year old female presenting with acute bowel perforation. Her problem list includes - Septic shock secondary to perforated viscus and abdominal spillage. - Status post exploratory laparotomy, bowel resection with ileostomy and left salpingo-oophorectomy - Acute kidney injury on chronic kidney disease - History of MDR-E.coli UTI - Ecoli and Gram positive bacilli bacteremia - Fungemia, otherwise unspecified - COPD with - Acute respiratory failure - Type 2 DM - Acute Anemia - Hypothyroidism NEUROLOGICAL - RASS 0; Alert and responsive - Continue Fentanyl 50 mcq q hourly PRN For pain - Single dose of Ketamine 8 mg (for adjunctive sympathomimetic properties) given for back pain and headache CARDIAC - BP: maintaining MAP > 65; remains on Levofed infusions - IV Fluids: 50 mEq NaHCO3 @ 150 ml/hr D/C maintenance fluids as patient receiving fluids from other sources (ie, antibiotics) - Hypotension Bolus 1000 ml LR; tentative bedside U/S evaluation for additional fluid responsiveness RESPIRATORY - Ventilator settings: RR 22 / Vt 450 ml / PEEP 5 / FiO2 30% - SpO2: 98% Reviewed indications/contraindications for SBT/CPAP trial; Patient passed SBT ; acidosis improving on CPAP/PSV Patient is on vasopressor support but doing well otherwise, RSBI < 105; is awake and alert and follow commands Patient successfully extubated; will continue to follow respiratory status through the day - COPD: stable, no evidence of exacerbation Continue home Ventolin and Atrovent inhalers GASTROINTESTINAL - Diet: NPO - GI Prophylaxis: Protonix 40 mg IV daily - Given recent surgery, needs to be followed for third spacing into abdominal cavity, may account for persistent hypotension in the coming days. Cannot rule out capillary leaking; avoid using colloid at this time - Surgery continuing to follow patient; recommendations appreciated RENAL//ENDOCRINE - Fluid Balance Cumulative: In 3665 / Out 1075 / Net 2590 - Cr: 1.0 (baseline 0.8-1.0); improved from 1.4 on arrival - Electrolytes: Stable - IV Fluids: D/C bicarb infusion; patient getting additional fluids from antibiotics - Type 2 DM - BSG: Well controlled 130-150; Continue current SSI - Hypothyroidism - Continue Levothyroxine - Metabolic acidosis - Likely 2/2 sepsis from abdominal perforation and spillage - Improving - Anticipated intracellular potassium shunting with acidosis resolution; admninister 40 mEq Potassium Acetate (avoid KCl due to hyperchloremia) HEME/ID - Tmax: 37 WBC: 5 - Hb/Hct 8.0/25.6 - Acute Anemia Hb 12 on arrival did have major abdominal surgery and was transfused 1 unit Repeat H&H in the evening Goal to repeat transfusion is Hb < 7.0; 1 unit on hold - Antibiotics: Fluconazole D/Cd due to high pre-test probability of resistance; Caspofungin started; fungal cultures pending Ampicillin (Enterococcal coverage) Ertapenemen (Gram negative coverage) - Lactate improved to 2.5 today (2.9 on admission) - DVT Prophylaxis: Lovenox 40 mg daily LINES/IV ACCESS - R triple lumen IJ - R wrist 20 g CODE STATUS - Full Code DISPOSITION - OT/PT: ordered - ICU Resident Physician Supervision Note: Dr. Phillips was resident physician during care of patient. I separately evaluated patient and did history and exam. I discussed the case with the resident and generally agree with the findings and plan. Patient successfully extubated, weaned off vasoactive medications. I expanded her antifungal coverage to include caspofungin instead of Diflucan given that she has a history of [id number] organisms. The aspirate of the wound culture contained fungal elements. I have ordered a second set of blood cultures as well as a fungal blood culture to increase the sensitivity for bacteremia and fungemia. Patient critically ill due to intra-abdominal sepsis secondary to perforated viscus. I have personally spent 40 minutes of critical care time in the direct management of this patient. This is a life/limb threatening event. This includes time spent evaluating patient, direct bedside care, chart review, placing orders, interpretation of diagnostic studies, discussion with consultants, patient, and family members, as well as other required patient management activities. This time is exclusive of all separately billable procedures, and teaching time and separate from and in addition to any other critical care service time. Documented By: Jacinto Mills DO Consults & Procedures Consultants: General Surgery - Dr. Powers Procedures: - Data Medications: Current Inpatient Medications Medications (Trade) Dose Ordered Sig/Kwabena Route Start Time Stop Time Status Last Admin Dose Admin Al Hydroxide/Mg Hydroxide 30 ml 30 ml QID NG 07/30/16 17:00 08/29/16 16:59 07/31/16 09:31 30 ML Norepinephrine Bitartrate/ Dextrose (Levophed Inj/ D5W 500ml) 508 ml @ 0 mls/hr Q0M PRN IV 07/30/16 13:24 08/29/16 13:23 07/31/16 00:03 44.5 MLS/HR Chlorhexidine Gluconate 15 ml 15 ml BID MT 07/30/16 21:00 08/29/16 20:59 07/31/16 09:32 15 ML Pantoprazole Sodium/Syringe (Protonix Inj/ Syringe) 10 ml @ 5 mls/min DAILY@11 IV 07/31/16 11:00 08/30/16 10:59 Fentanyl Citrate 50 mcg 50 mcg Q1H PRN IV 07/30/16 14:00 08/13/16 13:59 07/31/16 07:31 25 MCG Ertapenem/Sodium Chloride (Invanz Iv/Nss Ad-Van 50ml) 50 ml @ 100 mls/hr DAILY@1600 IV 07/30/16 16:00 08/09/16 15:59 Future hold 07/30/16 16:53 100 MLS/HR Miscellaneous Information 1 ea 1 ea UD PRN N/A 07/30/16 14:00 08/29/16 13:59 Ampicillin Sodium/ Sodium Chloride (Ampicillin Iv/ Nss Ad-Van 50ml) 50 ml @ 100 mls/hr Q6@04,10,16,22 IV 07/30/16 16:00 08/09/16 15:59 Future hold 07/31/16 09:35 100 MLS/HR Miscellaneous Information (Pharmacy Consult) 1 ea UD PRN N/A 07/30/16 14:30 08/29/16 14:29 Glucose (Glucose 40% Gel) 15-30 GRAMS 15 GRAMS... UD PRN PO 07/30/16 14:45 08/29/16 14:44 Glucose (Glucose Chew Tab) 4-8 Tablets 4 Tabl... UD PRN PO 07/30/16 14:45 08/29/16 14:44 Dextrose (Dextrose 50% 50ML Syringe) 25-50ML OF 50% DW IV FOR... UD PRN IV 07/30/16 14:45 08/29/16 14:44 Glucagon (Glucagon Inj) 1 mg UD PRN SQ 07/30/16 14:45 08/29/16 14:44 Albuterol (Ventolin Hfa Inhaler) 6 puffs Q6R INH 07/30/16 15:15 08/29/16 15:14 07/31/16 07:25 6 PUFFS Ipratropium Jackson 6 puffs 6 puffs Q6R INH 07/30/16 15:00 08/29/16 14:59 07/31/16 07:25 6 PUFFS Levothyroxine Sodium/Syringe (Synthroid Inj/ Syringe) 1.875 ml @ 2 mls/min DAILY@09 IV 07/31/16 09:00 08/30/16 08:59 07/31/16 08:37 2 MLS/MIN Insulin Aspart SLIDING SCALE Q6H SC 07/31/16 00:00 08/30/16 00:00 Caspofungin/ Sodium Chloride (Cancidas Inj/ Nss 250ml) 260 ml @ 250 mls/hr DAILY IV 08/01/16 09:00 08/31/16 08:59 Enoxaparin Sodium 40 mg 40 mg QAM SQ 08/01/16 09:00 08/31/16 08:59 Potassium Acetate 20 meq/Sodium Chloride 110 ml @ 55 mls/hr Q2H IV 07/31/16 11:00 07/31/16 14:59 07/31/16 10:37 55 MLS/HR Ertapenem 1 gm/ Sodium Chloride 100 ml @ 200 mls/hr DAILY@1600 IV 07/31/16 16:00 07/31/16 18:00 Ampicillin Sodium/ Sodium Chloride (Ampicillin Iv/ Nss Ad-Van 100ml) 100 ml @ 100 mls/hr 1600 IV 07/31/16 16:00 07/31/16 18:00 I & O: 24-Hour Column 07/31/16 07:59 Intake Total 5159 ml Output Total 1815 ml Balance 3344 ml Vital Signs: Date Time Temp Pulse Resp B/P Pulse Ox O2 Delivery O2 Flow Rate FiO2 07/31/16 11:00 96 28 99/49 97 07/31/16 11:00 95 28 99/49 98 Mechanical Ventilator 30 07/31/16 10:46 96 29 106/42 97 07/31/16 10:45 96 29 98 07/31/16 10:30 97 27 106/46 97 07/31/16 10:15 98 26 107/41 97 07/31/16 10:05 100 22 98/43 98 07/31/16 10:00 104 31 97 07/31/16 09:45 98 30 96/53 98 07/31/16 09:30 97 28 108/52 97 07/31/16 09:17 101 27 94/50 97 Mechanical Ventilator 30 07/31/16 09:15 99 28 94/50 98 07/31/16 09:00 102 27 109/51 97 07/31/16 08:45 101 28 101/48 98 07/31/16 08:30 102 26 93/39 97 07/31/16 08:15 103 26 92/45 97 07/31/16 08:00 97 Mechanical Ventilator 30 07/31/16 08:00 30 07/31/16 08:00 37.7 104 28 107/58 97 Mechanical Ventilator 30 07/31/16 07:25 30 07/31/16 06:00 37.0 92 27 113/53 97 Mechanical Ventilator 30 07/31/16 05:00 92 25 117/45 97 Mechanical Ventilator 30 07/31/16 04:50 30 07/31/16 04:03 98 Mechanical Ventilator 30 07/31/16 04:03 30 07/31/16 04:00 95 22 95/49 96 07/31/16 04:00 37.0 95 22 95/49 96 Mechanical Ventilator 30 07/31/16 03:00 98 24 117/55 Mechanical Ventilator 30 07/31/16 02:07 30 07/31/16 02:00 93 25 119/58 97 Mechanical Ventilator 30 07/31/16 01:00 91 23 112/51 Mechanical Ventilator 30 07/31/16 00:07 30 07/31/16 00:07 98 Mechanical Ventilator 30 07/31/16 00:00 37.0 87 26 110/53 Mechanical Ventilator 30 07/30/16 23:02 30 07/30/16 23:00 84 26 111/56 Mechanical Ventilator 30 07/30/16 22:00 86 24 101/63 Mechanical Ventilator 40 07/30/16 21:00 81 27 115/52 96 Mechanical Ventilator 40 07/30/16 20:34 98 Mechanical Ventilator 40 07/30/16 20:34 40 07/30/16 20:00 37.0 81 22 95/58 Mechanical Ventilator 40 07/30/16 19:27 40 07/30/16 19:00 80 25 92/57 Mechanical Ventilator 40 07/30/16 18:24 40 07/30/16 18:08 36.7 80 20 89/48 99 Mechanical Ventilator 40 07/30/16 16:00 36.6 79 24 90/49 100 Mechanical Ventilator 40 07/30/16 16:00 40 07/30/16 16:00 Mechanical Ventilator 40 07/30/16 14:21 50 07/30/16 14:00 36.6 74 20 75/45 100 Mechanical Ventilator 40 07/30/16 13:45 36.6 78 20 72/42 100 Mechanical Ventilator 07/30/16 13:35 36.6 80 20 87/45 100 Mechanical Ventilator 07/30/16 13:25 36.6 82 20 82/48 100 Mechanical Ventilator 07/30/16 13:15 36.6 87 20 77/57 100 Mechanical Ventilator Laboratory Results: Last 24 Hours Test 07/30/16 13:58 07/30/16 14:37 07/30/16 15:24 07/30/16 18:09 Blood Gas Sample Site Art Line Art Line Art Line Bedside Blood Gas pH (LAB) 7.03 7.15 7.21 Bedside Blood Gas pCO2 (LAB) 42 mmHg 39 mmHg 34 mmHg Bedside Blood Gas pO2 (LAB) 165 mmHg 218 mmHg 183 mmHg Bedside Blood Gas HCO3 (LAB) 11 meq/L 14 meq/L 14 meq/L Bedside Blood Gas Total CO2 12 mEq/l 15 mEq/l 15 mEq/l Bedside Blood Gas Base Excess (LAB) -20.0 meq/L -15.0 meq/L -14.0 meq/L Bedside Blood Gas O2 Saturation 98.0 % 100.0 % 99.0 % Panda Test NA NA NA Oxygen Delivery Device Ventilator Ventilator Ventilator Bedside Oxygen Rate (breaths/min) 16 20 20 Blood Gas Minute Ventilation 9 9 9 Bedside FiO2 50 % 50 % 40 % Blood Gas Tidal Volume 450 450 450 Blood Gas PEEP 5 5 5 White Blood Count 2.04 K/uL Red Blood Count 3.25 M/uL Hemoglobin 8.9 g/dL Hematocrit 29.0 % Mean Corpuscular Volume 89.2 fL Mean Corpuscular Hemoglobin 27.4 pg Mean Corpuscular Hemoglobin Concent 30.7 g/dl Platelet Count 242 K/uL Mean Platelet Volume 9.7 fL Neutrophils (%) (Auto) 69.6 % Lymphocytes (%) (Auto) 21.1 % Monocytes (%) (Auto) 7.8 % Eosinophils (%) (Auto) 1.5 % Basophils (%) (Auto) 0.0 % Neutrophils # (Auto) 1.42 K/uL Lymphocytes # (Auto) 0.43 K/uL Monocytes # (Auto) 0.16 K/uL Eosinophils # (Auto) 0.03 K/uL Basophils # (Auto) 0.00 K/uL RDW Standard Deviation 56.2 fL RDW Coefficient of Variation 16.9 % Immature Granulocyte % (Auto) 0.0 % Immature Granulocyte # (Auto) 0.00 K/uL Ovalocytes 1+ Echinocytes 1+ Sodium Level 149 mmol/L Potassium Level 4.2 mmol/L Chloride Level 117 mmol/L Carbon Dioxide Level 20 mmol/L Anion Gap 12.0 mmol/L Blood Urea Nitrogen 19 mg/dl Creatinine 1.20 mg/dl Est Creatinine Clear Calc Drug Dose 43.0 ml/min Estimated GFR () 53.0 Estimated GFR (Non- 45.8 BUN/Creatinine Ratio 15.9 Random Glucose 131 mg/dl Lactic Acid Level 2.9 mmol/L Calcium Level 6.7 mg/dl Phosphorus Level 4.7 mg/dl Magnesium Level 1.8 mg/dl Total Bilirubin 0.4 mg/dl Aspartate Amino Transf (AST/SGOT) 22 U/L Alanine Aminotransferase (ALT/SGPT) 14 U/L Alkaline Phosphatase 33 U/L Troponin I < 0.015 ng/ml Total Protein 4.2 gm/dl Albumin 2.0 gm/dl Globulin 2.2 gm/dl Albumin/Globulin Ratio 0.9 Test 07/30/16 21:07 07/30/16 23:42 07/31/16 06:18 07/31/16 06:21 Hemoglobin 9.4 g/dL 8.0 g/dL Hematocrit 29.8 % 25.6 % Blood Gas Sample Site L Radial Bedside Blood Gas pH (LAB) 7.22 Bedside Blood Gas pCO2 (LAB) 35 mmHg Bedside Blood Gas pO2 (LAB) 180 mmHg Bedside Blood Gas HCO3 (LAB) 14 meq/L Bedside Blood Gas Total CO2 15 mEq/l Bedside Blood Gas Base Excess (LAB) -13.0 meq/L Bedside Blood Gas O2 Saturation 99.0 % Panda Test Pass Oxygen Delivery Device Ventilator Bedside Oxygen Rate (breaths/min) 22 Blood Gas Minute Ventilation 12.1 Bedside FiO2 40 % Blood Gas Tidal Volume 450 Blood Gas PEEP 5 Sodium Level 144 mmol/L 142 mmol/L Potassium Level 3.9 mmol/L 3.6 mmol/L Chloride Level 113 mmol/L 110 mmol/L Carbon Dioxide Level 17 mmol/L 22 mmol/L Anion Gap 14.0 mmol/L 10.0 mmol/L Blood Urea Nitrogen 19 mg/dl 18 mg/dl Creatinine 1.10 mg/dl 1.00 mg/dl Est Creatinine Clear Calc Drug Dose 46.9 ml/min 52.7 ml/min Estimated GFR () 58.9 66.1 Estimated GFR (Non- 50.8 57.0 BUN/Creatinine Ratio 17.3 18.4 Random Glucose 143 mg/dl 147 mg/dl Lactic Acid Level 2.7 mmol/L 2.5 mmol/L Calcium Level 7.0 mg/dl 6.9 mg/dl Troponin I < 0.015 ng/ml Bedside Glucose (other) 162 mg/dl 149 mg/dl White Blood Count 5.69 K/uL Red Blood Count 3.01 M/uL Mean Corpuscular Volume 85.0 fL Mean Corpuscular Hemoglobin 26.6 pg Mean Corpuscular Hemoglobin Concent 31.3 g/dl Platelet Count 209 K/uL Mean Platelet Volume 9.8 fL Neutrophils (%) (Auto) 78.1 % Lymphocytes (%) (Auto) 15.6 % Monocytes (%) (Auto) 3.7 % Eosinophils (%) (Auto) 1.2 % Basophils (%) (Auto) 0.2 % Neutrophils # (Auto) 4.44 K/uL Lymphocytes # (Auto) 0.89 K/uL Monocytes # (Auto) 0.21 K/uL Eosinophils # (Auto) 0.07 K/uL Basophils # (Auto) 0.01 K/uL RDW Standard Deviation 53.8 fL RDW Coefficient of Variation 17.3 % Immature Granulocyte % (Auto) 1.2 % Immature Granulocyte # (Auto) 0.07 K/uL Red Blood Cell Morphology Unremarkable Estimated Average Glucose 111 mg/dl Hemoglobin A1c 5.5 % Phosphorus Level 3.3 mg/dl Magnesium Level 1.7 mg/dl Test 07/31/16 08:42 07/31/16 08:49 07/31/16 09:18 Ionized Calcium 1.02 mmol/l Lipase 38 U/L Random Cortisol 39.24 mcg/dl Blood Gas Sample Site L Radial Bedside Blood Gas pH (LAB) 7.36 Bedside Blood Gas pCO2 (LAB) 35 mmHg Bedside Blood Gas pO2 (LAB) 109 mmHg Bedside Blood Gas HCO3 (LAB) 20 meq/L Bedside Blood Gas Total CO2 21 mEq/l Bedside Blood Gas Base Excess (LAB) -6.0 meq/L Bedside Blood Gas O2 Saturation 98.0 % Panda Test Pass Oxygen Delivery Device Ventilator Bedside FiO2 30 % Blood Gas PEEP 5 Lab Scanned Report Blood Transfusion
--- NOTE | 2016-07-31 12:01 | Surgery Progress Note ---
Surgery Progress Note Date of Service July 31, 2016. Subjective Post OP Day: 1 Remains intubated Awake, alert, answers questions appropriately Objective Vital Signs: Date Time Temp Pulse Resp B/P Pulse Ox O2 Delivery O2 Flow Rate FiO2 07/31/16 11:00 96 28 99/49 97 07/31/16 11:00 30 07/31/16 11:00 95 28 99/49 98 Mechanical Ventilator 30 07/31/16 10:46 96 29 106/42 97 07/31/16 10:45 96 29 98 07/31/16 10:30 97 27 106/46 97 07/31/16 10:15 98 26 107/41 97 07/31/16 10:05 100 22 98/43 98 07/31/16 10:00 104 31 97 07/31/16 09:45 98 30 96/53 98 07/31/16 09:30 97 28 108/52 97 07/31/16 09:17 101 27 94/50 97 Mechanical Ventilator 30 07/31/16 09:15 99 28 94/50 98 07/31/16 09:00 102 27 109/51 97 07/31/16 08:45 101 28 101/48 98 07/31/16 08:30 102 26 93/39 97 07/31/16 08:15 103 26 92/45 97 07/31/16 08:00 97 Mechanical Ventilator 30 07/31/16 08:00 30 07/31/16 08:00 37.7 104 28 107/58 97 Mechanical Ventilator 30 07/31/16 07:25 30 07/31/16 06:00 37.0 92 27 113/53 97 Mechanical Ventilator 30 07/31/16 05:00 92 25 117/45 97 Mechanical Ventilator 30 07/31/16 04:50 30 07/31/16 04:03 98 Mechanical Ventilator 30 07/31/16 04:03 30 07/31/16 04:00 95 22 95/49 96 07/31/16 04:00 37.0 95 22 95/49 96 Mechanical Ventilator 30 07/31/16 03:00 98 24 117/55 Mechanical Ventilator 30 07/31/16 02:07 30 07/31/16 02:00 93 25 119/58 97 Mechanical Ventilator 30 07/31/16 01:00 91 23 112/51 Mechanical Ventilator 30 07/31/16 00:07 30 07/31/16 00:07 98 Mechanical Ventilator 30 07/31/16 00:00 37.0 87 26 110/53 Mechanical Ventilator 30 07/30/16 23:02 30 07/30/16 23:00 84 26 111/56 Mechanical Ventilator 30 07/30/16 22:00 86 24 101/63 Mechanical Ventilator 40 07/30/16 21:00 81 27 115/52 96 Mechanical Ventilator 40 07/30/16 20:34 98 Mechanical Ventilator 40 07/30/16 20:34 40 07/30/16 20:00 37.0 81 22 95/58 Mechanical Ventilator 40 07/30/16 19:27 40 07/30/16 19:00 80 25 92/57 Mechanical Ventilator 40 07/30/16 18:24 40 07/30/16 18:08 36.7 80 20 89/48 99 Mechanical Ventilator 40 07/30/16 16:00 36.6 79 24 90/49 100 Mechanical Ventilator 40 07/30/16 16:00 40 07/30/16 16:00 Mechanical Ventilator 40 07/30/16 14:21 50 07/30/16 14:00 36.6 74 20 75/45 100 Mechanical Ventilator 40 07/30/16 13:45 36.6 78 20 72/42 100 Mechanical Ventilator 07/30/16 13:35 36.6 80 20 87/45 100 Mechanical Ventilator 07/30/16 13:25 36.6 82 20 82/48 100 Mechanical Ventilator 07/30/16 13:15 36.6 87 20 77/57 100 Mechanical Ventilator Physical Exam: MARIBEL drainage (Maribel #1: 125 cc yesterday, 90 cc last shift; MARIBEL #2: 50 cc yesterday, 100 cc last shift; nonbloody) Abdomen: non distended, soft, + abnormal bowel sounds (no sounds), + pertinent finding (ileostomy pink) Laboratory Results: Results Past 24 Hours Test 07/30/16 13:58 07/30/16 14:37 07/30/16 15:24 07/30/16 18:09 Range/Units Blood Gas Sample Site Art Line Art Line Art Line Bedside Blood Gas pH (LAB) 7.03 7.15 7.21 7.35-7.45 Bedside Blood Gas pCO2 (LAB) 42 39 34 35-46 mmHg Bedside Blood Gas pO2 (LAB) 165 218 183 80-95 mmHg Bedside Blood Gas HCO3 (LAB) 11 14 14 19-24 meq/L Bedside Blood Gas Total CO2 12 15 15 24-31 mEq/l Bedside Blood Gas Base Excess (LAB) -20.0 -15.0 -14.0 -9-1.8 meq/L Bedside Blood Gas O2 Saturation 98.0 100.0 99.0 90-95 % Panda Test NA NA NA Oxygen Delivery Device Ventilator Ventilator Ventilator Bedside Oxygen Rate (breaths/min) 16 20 20 Blood Gas Minute Ventilation 9 9 9 Bedside FiO2 50 50 40 % Blood Gas Tidal Volume 450 450 450 Blood Gas PEEP 5 5 5 White Blood Count 2.04 4.8-10.8 K/uL Red Blood Count 3.25 4.2-5.4 M/uL Hemoglobin 8.9 12.0-16.0 g/dL Hematocrit 29.0 37-47 % Mean Corpuscular Volume 89.2 80-100 fL Mean Corpuscular Hemoglobin 27.4 25-34 pg Mean Corpuscular Hemoglobin Concent 30.7 32-36 g/dl Platelet Count 242 130-400 K/uL Mean Platelet Volume 9.7 7.4-10.4 fL Neutrophils (%) (Auto) 69.6 % Lymphocytes (%) (Auto) 21.1 % Monocytes (%) (Auto) 7.8 % Eosinophils (%) (Auto) 1.5 % Basophils (%) (Auto) 0.0 % Neutrophils # (Auto) 1.42 1.4-6.5 K/uL Lymphocytes # (Auto) 0.43 1.2-3.4 K/uL Monocytes # (Auto) 0.16 0.11-0.59 K/uL Eosinophils # (Auto) 0.03 0-0.5 K/uL Basophils # (Auto) 0.00 0-0.2 K/uL RDW Standard Deviation 56.2 36.4-46.3 fL RDW Coefficient of Variation 16.9 11.5-14.5 % Immature Granulocyte % (Auto) 0.0 % Immature Granulocyte # (Auto) 0.00 0.00-0.02 K/uL Ovalocytes 1+ Echinocytes 1+ Sodium Level 149 136-145 mmol/L Potassium Level 4.2 3.5-5.1 mmol/L Chloride Level 117 98-107 mmol/L Carbon Dioxide Level 20 21-32 mmol/L Anion Gap 12.0 3-11 mmol/L Blood Urea Nitrogen 19 7-18 mg/dl Creatinine 1.20 0.60-1.20 mg/dl Est Creatinine Clear Calc Drug Dose 43.0 ml/min Estimated GFR () 53.0 Estimated GFR (Non- 45.8 BUN/Creatinine Ratio 15.9 10-20 Random Glucose 131 70-99 mg/dl Lactic Acid Level 2.9 0.4-2.0 mmol/L Calcium Level 6.7 8.5-10.1 mg/dl Phosphorus Level 4.7 2.5-4.9 mg/dl Magnesium Level 1.8 1.8-2.4 mg/dl Total Bilirubin 0.4 0.2-1 mg/dl Aspartate Amino Transf (AST/SGOT) 22 15-37 U/L Alanine Aminotransferase (ALT/SGPT) 14 12-78 U/L Alkaline Phosphatase 33 45-117 U/L Troponin I < 0.015 0-0.045 ng/ml Total Protein 4.2 6.4-8.2 gm/dl Albumin 2.0 3.4-5.0 gm/dl Globulin 2.2 2.5-4.0 gm/dl Albumin/Globulin Ratio 0.9 0.9-2 Test 07/30/16 21:07 07/30/16 23:42 07/31/16 06:18 07/31/16 06:21 Range/Units Hemoglobin 9.4 8.0 12.0-16.0 g/dL Hematocrit 29.8 25.6 37-47 % Blood Gas Sample Site L Radial Bedside Blood Gas pH (LAB) 7.22 7.35-7.45 Bedside Blood Gas pCO2 (LAB) 35 35-46 mmHg Bedside Blood Gas pO2 (LAB) 180 80-95 mmHg Bedside Blood Gas HCO3 (LAB) 14 19-24 meq/L Bedside Blood Gas Total CO2 15 24-31 mEq/l Bedside Blood Gas Base Excess (LAB) -13.0 -9-1.8 meq/L Bedside Blood Gas O2 Saturation 99.0 90-95 % Panda Test Pass Oxygen Delivery Device Ventilator Bedside Oxygen Rate (breaths/min) 22 Blood Gas Minute Ventilation 12.1 Bedside FiO2 40 % Blood Gas Tidal Volume 450 Blood Gas PEEP 5 Sodium Level 144 142 136-145 mmol/L Potassium Level 3.9 3.6 3.5-5.1 mmol/L Chloride Level 113 110 98-107 mmol/L Carbon Dioxide Level 17 22 21-32 mmol/L Anion Gap 14.0 10.0 3-11 mmol/L Blood Urea Nitrogen 19 18 7-18 mg/dl Creatinine 1.10 1.00 0.60-1.20 mg/dl Est Creatinine Clear Calc Drug Dose 46.9 52.7 ml/min Estimated GFR () 58.9 66.1 Estimated GFR (Non- 50.8 57.0 BUN/Creatinine Ratio 17.3 18.4 10-20 Random Glucose 143 147 70-99 mg/dl Lactic Acid Level 2.7 2.5 0.4-2.0 mmol/L Calcium Level 7.0 6.9 8.5-10.1 mg/dl Troponin I < 0.015 0-0.045 ng/ml Bedside Glucose (other) 162 149 70-99 mg/dl White Blood Count 5.69 4.8-10.8 K/uL Red Blood Count 3.01 4.2-5.4 M/uL Mean Corpuscular Volume 85.0 80-100 fL Mean Corpuscular Hemoglobin 26.6 25-34 pg Mean Corpuscular Hemoglobin Concent 31.3 32-36 g/dl Platelet Count 209 130-400 K/uL Mean Platelet Volume 9.8 7.4-10.4 fL Neutrophils (%) (Auto) 78.1 % Lymphocytes (%) (Auto) 15.6 % Monocytes (%) (Auto) 3.7 % Eosinophils (%) (Auto) 1.2 % Basophils (%) (Auto) 0.2 % Neutrophils # (Auto) 4.44 1.4-6.5 K/uL Lymphocytes # (Auto) 0.89 1.2-3.4 K/uL Monocytes # (Auto) 0.21 0.11-0.59 K/uL Eosinophils # (Auto) 0.07 0-0.5 K/uL Basophils # (Auto) 0.01 0-0.2 K/uL RDW Standard Deviation 53.8 36.4-46.3 fL RDW Coefficient of Variation 17.3 11.5-14.5 % Immature Granulocyte % (Auto) 1.2 % Immature Granulocyte # (Auto) 0.07 0.00-0.02 K/uL Red Blood Cell Morphology Unremarkable Estimated Average Glucose 111 mg/dl Hemoglobin A1c 5.5 4.5-5.6 % Phosphorus Level 3.3 2.5-4.9 mg/dl Magnesium Level 1.7 1.8-2.4 mg/dl Test 07/31/16 08:42 07/31/16 08:49 07/31/16 09:18 Range/Units Ionized Calcium 1.02 1.12-1.32 mmol/l Lipase 38 73-393 U/L Random Cortisol 39.24 mcg/dl Blood Gas Sample Site L Radial Bedside Blood Gas pH (LAB) 7.36 7.35-7.45 Bedside Blood Gas pCO2 (LAB) 35 35-46 mmHg Bedside Blood Gas pO2 (LAB) 109 80-95 mmHg Bedside Blood Gas HCO3 (LAB) 20 19-24 meq/L Bedside Blood Gas Total CO2 21 24-31 mEq/l Bedside Blood Gas Base Excess (LAB) -6.0 -9-1.8 meq/L Bedside Blood Gas O2 Saturation 98.0 90-95 % Panda Test Pass Oxygen Delivery Device Ventilator Bedside FiO2 30 % Blood Gas PEEP 5 Lab Scanned Report Blood Transfusion Tag [id number] Microbiology Results 07/31/16 Blood Culture, Received Pending 07/31/16 Fungal Smear - Final, Resulted 07/31/16 Fungal Culture, Resulted Pending 07/30/16 MRSA DNA Surveillance Screen - Final, Complete Specimen Negative for MRSA by DNA Probe Assessment & Plan S/P right colectomy with ileostomy formation Stable hemodynamically Lactic acid still up, doubt intraabdominal source that would require reexploration at this time Urine output good, BUN creat good No ostomy output as yet Respiratory management as per Final Operations Technician service Wound care consult for wound vac and ostomy carfe
[2016-07-31] MEDS: AMPICILLIN IV 2,000 MG in SODIUM CHLOR 0.9% AD-VAN 100ML 100 ML IV SCH ×2 (13:36→19:50)
[2016-07-31] MEDS: ALBUT/IPRATROP 3MG/0.5MG NEB 3 ML VIAL INH SCH ×2 (14:26→19:03)
[2016-07-31] MEDS ORDERED: AD VAN IV SCH (16:00)
[2016-07-31] MEDS ORDERED: AMPICILLIN IV SCH (16:00)
[2016-07-31] MEDS ORDERED: ERTAPENEM IV 1 GM in SODIUM CHLOR 0.9% AD-VAN 50ML IV SCH (16:00)
[2016-07-31] MEDS ORDERED: FLUCONAZOLE / NSS 200 MG in PREMIXED NSS 100 ML IV SCH (16:00)
[2016-07-31] MEDS ORDERED: SODIUM CHLOR 0.9% IV SCH (16:00)
[2016-07-31 16:21] LABS: HEMATOCRIT 22.4 % (37-47)
[2016-07-31 22:22] LABS: HEMATOCRIT 20.2 % (37-47)
[2016-08-01] VITALS (23 sets, daily range): BP systolic 90–121; BP diastolic 41–59; PULSE 84–101; TEMP 36.6–38.1; O2SAT 74–96
[2016-08-01] MEDS: ALBUT/IPRATROP 3MG/0.5MG NEB 3 ML VIAL INH SCH ×4 (01:35→19:19)
[2016-08-01] MEDS: AMPICILLIN IV 2,000 MG in SODIUM CHLOR 0.9% AD-VAN 100ML 100 ML IV SCH (02:19)
[2016-08-01] MEDS: FENTANYL CITRATE INJ 50 MCG/1 ML 2 ML VIAL IV PRN ×2 (02:31→04:52)
[2016-08-01 05:08] LABS: HEMATOCRIT 20.4 % (37-47); MEAN CELL VOLUME 84.6 fL (80-100); MEAN CORPUSCULAR HEMOGLOBIN 28.6 pg (25-34); MEAN CORPUSCULAR HGB CONC 33.8 g/dl (32-36); MEAN PLATELET VOLUME 10.2 fL (7.4-10.4); PLATELET COUNT 182 K/uL (130-400); RED BLOOD COUNT 2.41 M/uL (4.2-5.4); WHITE BLOOD COUNT 7.71 K/uL (4.8-10.8)
[2016-08-01 05:20] LABS: BUN/CREATININE RATIO 23.8 (10-20); CREATININE 0.85 mg/dl (0.60-1.20); MAGNESIUM 2.3 mg/dl (1.8-2.4); POTASSIUM 3.5 mmol/L (3.5-5.1)
[2016-08-01 05:22] LABS: BASO % 0.1 %; BASO ABS # 0.01 K/uL (0-0.2); COMPLETE YES; ECHINOCYTES 1+; EOS % 1.2 %; IG% 1.3 %; LYMPH ABS # 0.85 K/uL (1.2-3.4); MONO % 1.6 %; NEUT % 84.8 %
[2016-08-01 05:40] LABS: ALB/GLOB RATIO 0.7 (0.9-2); PHOSPHORUS 2.6 mg/dl (2.5-4.9)
[2016-08-01] MEDS: INSULIN ASPART 100 UNITS/ML 3 ML PEN SC SCH ×5 (05:49→23:21)
[2016-08-01] MEDS: POTASSIUM CHLR 20 MEQ / WTR 20 MEQ in PREMIXED WATER 100 ML IV SCH ×2 (06:20→10:08)
[2016-08-01] MEDS ORDERED: PEPTAMEN 1.5 CAL 1000ML BAG PO SCH (07:15)
--- NOTE | 2016-08-01 07:20 | Surgery Progress Note ---
Surgery Progress Note Date of Service August 01, 2016. Subjective Post OP Day: 2 + pain controlled, No nausea, No vomiting Extubated yesterday successfully Awake, alert Objective Vital Signs: Date Time Temp Pulse Resp B/P Pulse Ox O2 Delivery O2 Flow Rate FiO2 08/01/16 05:00 98 24 117/55 94 08/01/16 04:18 37.1 99 18 114/46 95 Nasal Cannula 2.0 08/01/16 04:00 Nasal Cannula 2.0 08/01/16 03:00 100 28 101/42 08/01/16 02:00 101 25 108/41 08/01/16 01:35 98 20 94 Nasal Cannula 1.0 08/01/16 01:00 98 30 110/46 08/01/16 00:19 36.6 99 18 121/59 94 1.0 07/31/16 23:59 Nasal Cannula 1.0 07/31/16 22:00 98 32 88/49 93 07/31/16 20:01 36.6 102 20 105/37 94 Nasal Cannula 2.0 07/31/16 20:00 Nasal Cannula 2.0 07/31/16 20:00 106 22 93 07/31/16 19:03 99 20 92 Nasal Cannula 1.0 07/31/16 18:00 37.0 102 22 102/59 94 07/31/16 16:00 Nasal Cannula 2.0 07/31/16 15:53 36.9 101 22 92/45 93 07/31/16 14:26 106 20 96 Nasal Cannula 3.0 07/31/16 14:10 106 28 104/45 92 07/31/16 14:05 102 32 101/48 91 07/31/16 14:01 101 28 75/34 90 07/31/16 14:00 101 30 90 07/31/16 13:45 99 29 94 07/31/16 13:30 99 27 106/42 98 07/31/16 13:15 100 29 97 07/31/16 13:00 97 30 96/41 99 07/31/16 12:45 104 30 97 07/31/16 12:30 99 30 95/58 98 07/31/16 12:15 101 23 97 07/31/16 12:00 Nasal Cannula 2.0 07/31/16 12:00 97 30 92/44 98 07/31/16 11:53 30 07/31/16 11:45 99 29 98 07/31/16 11:41 99 33 94/51 99 07/31/16 11:30 100 32 90 07/31/16 11:15 95 29 97/49 97 07/31/16 11:00 96 28 99/49 97 07/31/16 11:00 30 07/31/16 11:00 95 28 99/49 98 Mechanical Ventilator 30 07/31/16 10:46 96 29 106/42 97 07/31/16 10:45 96 29 98 07/31/16 10:30 97 27 106/46 97 07/31/16 10:15 98 26 107/41 97 07/31/16 10:05 100 22 98/43 98 07/31/16 10:00 104 31 97 07/31/16 09:45 98 30 96/53 98 07/31/16 09:30 97 28 108/52 97 07/31/16 09:17 101 27 94/50 97 Mechanical Ventilator 30 07/31/16 09:15 99 28 94/50 98 07/31/16 09:00 102 27 109/51 97 07/31/16 08:45 101 28 101/48 98 07/31/16 08:30 102 26 93/39 97 07/31/16 08:15 103 26 92/45 97 07/31/16 08:00 97 Mechanical Ventilator 30 07/31/16 08:00 30 07/31/16 08:00 37.7 104 28 107/58 97 Mechanical Ventilator 30 07/31/16 07:25 30 Physical Exam: MARIBEL drainage (MARIBEL #1: 190 cc yesterday, 45 cc last shift; MARIBEL #2: 330 cc yesterday, 95 cc lasst shift; serous) Abdomen: non distended, soft, + abnormal bowel sounds (some present), + tenderness Incision(s): no erythema, findings (wound vac in place) Laboratory Results: Results Past 24 Hours Test 07/31/16 08:42 07/31/16 08:49 07/31/16 09:18 07/31/16 12:12 Range/Units Ionized Calcium 1.02 1.12-1.32 mmol/l Lipase 38 73-393 U/L Random Cortisol 39.24 mcg/dl Blood Gas Sample Site L Radial Bedside Blood Gas pH (LAB) 7.36 7.35-7.45 Bedside Blood Gas pCO2 (LAB) 35 35-46 mmHg Bedside Blood Gas pO2 (LAB) 109 80-95 mmHg Bedside Blood Gas HCO3 (LAB) 20 19-24 meq/L Bedside Blood Gas Total CO2 21 24-31 mEq/l Bedside Blood Gas Base Excess (LAB) -6.0 -9-1.8 meq/L Bedside Blood Gas O2 Saturation 98.0 90-95 % Panda Test Pass Oxygen Delivery Device Ventilator Bedside FiO2 30 % Blood Gas PEEP 5 Lab Scanned Report Blood Transfusion Tag [id number] Bedside Glucose 107 70-90 mg/dl Test 07/31/16 16:07 07/31/16 18:39 07/31/16 22:00 08/01/16 00:03 Range/Units Hemoglobin 7.0 6.8 12.0-16.0 g/dL Hematocrit 22.4 20.2 37-47 % Bedside Glucose 87 86 70-90 mg/dl Absolute Reticulocyte Count 0.04 0.02-0.10 10^6/uL Percent Reticulocyte Count 1.8 0.5-2.0 % Test 08/01/16 04:50 Range/Units White Blood Count 7.71 4.8-10.8 K/uL Red Blood Count 2.41 4.2-5.4 M/uL Hemoglobin 6.9 12.0-16.0 g/dL Hematocrit 20.4 37-47 % Mean Corpuscular Volume 84.6 80-100 fL Mean Corpuscular Hemoglobin 28.6 25-34 pg Mean Corpuscular Hemoglobin Concent 33.8 32-36 g/dl Platelet Count 182 130-400 K/uL Mean Platelet Volume 10.2 7.4-10.4 fL Neutrophils (%) (Auto) 84.8 % Lymphocytes (%) (Auto) 11.0 % Monocytes (%) (Auto) 1.6 % Eosinophils (%) (Auto) 1.2 % Basophils (%) (Auto) 0.1 % Neutrophils # (Auto) 6.54 1.4-6.5 K/uL Lymphocytes # (Auto) 0.85 1.2-3.4 K/uL Monocytes # (Auto) 0.12 0.11-0.59 K/uL Eosinophils # (Auto) 0.09 0-0.5 K/uL Basophils # (Auto) 0.01 0-0.2 K/uL RDW Standard Deviation 52.4 36.4-46.3 fL RDW Coefficient of Variation 17.1 11.5-14.5 % Immature Granulocyte % (Auto) 1.3 % Immature Granulocyte # (Auto) 0.10 0.00-0.02 K/uL Echinocytes 1+ Sodium Level 144 136-145 mmol/L Potassium Level 3.5 3.5-5.1 mmol/L Chloride Level 111 98-107 mmol/L Carbon Dioxide Level 26 21-32 mmol/L Anion Gap 7.0 3-11 mmol/L Blood Urea Nitrogen 20 7-18 mg/dl Creatinine 0.85 0.60-1.20 mg/dl Est Creatinine Clear Calc Drug Dose 62.0 ml/min Estimated GFR () 80.5 Estimated GFR (Non- 69.4 BUN/Creatinine Ratio 23.8 10-20 Random Glucose 81 70-99 mg/dl Calcium Level 7.0 8.5-10.1 mg/dl Ionized Calcium 1.03 1.12-1.32 mmol/l Phosphorus Level 2.6 2.5-4.9 mg/dl Magnesium Level 2.3 1.8-2.4 mg/dl Total Bilirubin 0.3 0.2-1 mg/dl Aspartate Amino Transf (AST/SGOT) 10 15-37 U/L Alanine Aminotransferase (ALT/SGPT) 12 12-78 U/L Alkaline Phosphatase 37 45-117 U/L Total Protein 4.3 6.4-8.2 gm/dl Albumin 1.7 3.4-5.0 gm/dl Globulin 2.6 2.5-4.0 gm/dl Albumin/Globulin Ratio 0.7 0.9-2 Microbiology Results 07/31/16 Blood Culture, Received Pending 07/31/16 Fungal Smear - Final, Resulted 07/31/16 Fungal Culture, Resulted Pending Assessment & Plan S/P right colectomy with ileostomy formation Stable hemodynamically Acidosis resolved Urine output good, BUN creat good No ostomy output as yet but think can begin tube feeds Extubated, respiratory status stable Appreciate wound care input, wound vac in place OOB today, await PT evaluation
--- NOTE | 2016-08-01 09:16 | Progress Note ---
Medicine Progress Note Date & Time of Visit: August 01, 2016 at 09:08. Subjective extubated yesterday awake, alert, oriented x 3 comfortable tolerated clears this morning no nausea, abdominal pain denies chest pain, dyspnea, dizziness no other symptoms Objective Last 8 Hrs Date Time Temp Pulse Resp B/P Pulse Ox O2 Delivery O2 Flow Rate FiO2 08/01/16 07:15 93 20 96 Nasal Cannula 1.0 08/01/16 06:00 38.1 98 28 91/41 08/01/16 05:00 98 24 117/55 94 08/01/16 04:18 37.1 99 18 114/46 95 Nasal Cannula 2.0 08/01/16 04:00 Nasal Cannula 2.0 08/01/16 03:00 100 28 101/42 08/01/16 02:00 101 25 108/41 08/01/16 01:35 98 20 94 Nasal Cannula 1.0 Physical Exam: General- oriented x 3, not in distress, speaks in sentences with no effort Head- atraumatic Eyes- EOMI, anicteric ENT- oropharynx clear Neck- supple, no JVD, no adenopathy, no thyromegaly Lungs- clear breath sounds bilaterally Heart- normal rate, regular rhythm; no murmurs Abdomen- wound vac in place, non distended, soft, nontender, good bowel sounds Extremities- no pretibial edema, no calf tenderness Neuro- alert, oriented x 3; no gross focal deficits Skin- warm & dry Laboratory Results: Last 24 Hours Test 07/31/16 09:18 07/31/16 12:12 07/31/16 16:07 07/31/16 18:39 Lab Scanned Report Blood Transfusion Bedside Glucose 107 mg/dl 87 mg/dl Hemoglobin 7.0 g/dL Hematocrit 22.4 % Test 07/31/16 22:00 08/01/16 00:03 08/01/16 04:50 Hemoglobin 6.8 g/dL 6.9 g/dL Hematocrit 20.2 % 20.4 % Absolute Reticulocyte Count 0.04 10^6/uL Percent Reticulocyte Count 1.8 % Bedside Glucose 86 mg/dl White Blood Count 7.71 K/uL Red Blood Count 2.41 M/uL Mean Corpuscular Volume 84.6 fL Mean Corpuscular Hemoglobin 28.6 pg Mean Corpuscular Hemoglobin Concent 33.8 g/dl Platelet Count 182 K/uL Mean Platelet Volume 10.2 fL Neutrophils (%) (Auto) 84.8 % Lymphocytes (%) (Auto) 11.0 % Monocytes (%) (Auto) 1.6 % Eosinophils (%) (Auto) 1.2 % Basophils (%) (Auto) 0.1 % Neutrophils # (Auto) 6.54 K/uL Lymphocytes # (Auto) 0.85 K/uL Monocytes # (Auto) 0.12 K/uL Eosinophils # (Auto) 0.09 K/uL Basophils # (Auto) 0.01 K/uL RDW Standard Deviation 52.4 fL RDW Coefficient of Variation 17.1 % Immature Granulocyte % (Auto) 1.3 % Immature Granulocyte # (Auto) 0.10 K/uL Echinocytes 1+ Sodium Level 144 mmol/L Potassium Level 3.5 mmol/L Chloride Level 111 mmol/L Carbon Dioxide Level 26 mmol/L Anion Gap 7.0 mmol/L Blood Urea Nitrogen 20 mg/dl Creatinine 0.85 mg/dl Est Creatinine Clear Calc Drug Dose 62.0 ml/min Estimated GFR () 80.5 Estimated GFR (Non- 69.4 BUN/Creatinine Ratio 23.8 Random Glucose 81 mg/dl Calcium Level 7.0 mg/dl Ionized Calcium 1.03 mmol/l Phosphorus Level 2.6 mg/dl Magnesium Level 2.3 mg/dl Total Bilirubin 0.3 mg/dl Aspartate Amino Transf (AST/SGOT) 10 U/L Alanine Aminotransferase (ALT/SGPT) 12 U/L Alkaline Phosphatase 37 U/L Total Protein 4.3 gm/dl Albumin 1.7 gm/dl Globulin 2.6 gm/dl Albumin/Globulin Ratio 0.7 Assessment & Plan 71 year old female with history of DM, HTN, COPD SEPTIC SHOCK SECONDARY TO COLONIC PERFORATION S/P Emergent Exploratory Laparotomy, Bowel Resection, Creation of Colostomy, Left Salpingo-oophorectomy by Dr Powers 07/30/16 -- off mechanical ventilation off Levophed -- Abdominal Fluid: (+) E coli, moderate yeast -- continue IV Invanz, Ampicillin, Caspofungin ff up cultures off IV fluids, on Peptamen ANEMIA -- likely acute from colon perforation, post op state -- Hg 6.9 asymptomatic -- discussed with Dr. Mills monitor Hg for now ACUTE RENAL FAILURE ON CKD STAGE III - RESOLVED RECENT HX OF UTI/BACTEREMIA Was discharged from hospital on 07/21/16 on IV Invanz and PO Amoxicillin for E coli and Enterococcus. 1/2 bottles grew E coli/PCN sensitive enterococcus -Was supposed to received IV Invanz via PICC line and PO amoxicillin for 14 days. PICC line was removed by Curt[employer] St[employer]cher and central line placed -- continue IV Invanz, Ampicillin, Caspofungin HTN -Diamox and lisinopril on hold. DM - hgb a1c 5.4 04/2016 -Holding oral agents and utilize SSI while hospitalized -ACHS -blood sugar COPD -No acute issue -stable on home inhalers -Nebs as needed HYPOTHYROIDISM -IV levothyroxine DVT PROPHYLAXIS Lovenox GI PROPHYLAXIS PPI - IV DISPOSITION pending PT OT je Thank you for this consultation. We will follow the patient with you during their hospital stay. You can reach a member of the [facility] Hospitalist Team 16/10 via pager @ [phone]. Current Inpatient Medications: Current Inpatient Medications Medications (Trade) Dose Ordered Sig/Kwabena Route Start Time Stop Time Status Last Admin Dose Admin Al Hydroxide/Mg Hydroxide 30 ml 30 ml QID NG 07/30/16 17:00 08/29/16 16:59 07/31/16 19:51 30 ML Norepinephrine Bitartrate/ Dextrose (Levophed Inj/ D5W 500ml) 508 ml @ 0 mls/hr Q0M PRN IV 07/30/16 13:24 08/29/16 13:23 07/31/16 00:03 44.5 MLS/HR Chlorhexidine Gluconate 15 ml 15 ml BID MT 07/30/16 21:00 08/29/16 20:59 07/31/16 19:51 15 ML Pantoprazole Sodium/Syringe (Protonix Inj/ Syringe) 10 ml @ 5 mls/min DAILY@11 IV 07/31/16 11:00 08/30/16 10:59 07/31/16 11:49 5 MLS/MIN Fentanyl Citrate 50 mcg 50 mcg Q1H PRN IV 07/30/16 14:00 08/13/16 13:59 08/01/16 04:52 50 MCG Ertapenem/Sodium Chloride (Invanz Iv/Nss Ad-Van 50ml) 50 ml @ 100 mls/hr DAILY@1600 IV 07/30/16 16:00 08/09/16 15:59 Future hold 07/30/16 16:53 100 MLS/HR Miscellaneous Information (Pharmacy Consult) 1 ea UD PRN N/A 07/30/16 14:00 08/29/16 13:59 Miscellaneous Information (Pharmacy Consult) 1 ea UD PRN N/A 07/30/16 14:30 08/29/16 14:29 Glucose (Glucose 40% Gel) 15-30 GRAMS 15 GRAMS... UD PRN PO 07/30/16 14:45 08/29/16 14:44 Glucose (Glucose Chew Tab) 4-8 Tablets 4 Tabl... UD PRN PO 07/30/16 14:45 08/29/16 14:44 Dextrose (Dextrose 50% 50ML Syringe) 25-50ML OF 50% DW IV FOR... UD PRN IV 07/30/16 14:45 08/29/16 14:44 Glucagon 1 mg 1 mg UD PRN SQ 07/30/16 14:45 08/29/16 14:44 Levothyroxine Sodium/Syringe (Synthroid Inj/ Syringe) 1.875 ml @ 2 mls/min DAILY@09 IV 07/31/16 09:00 08/30/16 08:59 07/31/16 08:37 2 MLS/MIN Insulin Aspart SLIDING SCALE Q6H SC 07/31/16 00:00 08/30/16 00:00 Caspofungin/ Sodium Chloride (Cancidas Inj/ Nss 250ml) 260 ml @ 250 mls/hr DAILY IV 08/01/16 09:00 08/31/16 08:59 Enoxaparin Sodium 40 mg 40 mg QAM SQ 08/01/16 09:00 08/31/16 08:59 Ampicillin Sodium/ Sodium Chloride (Ampicillin Iv/ Nss Ad-Van 100ml) 108 ml @ 216 mls/hr Q6H IV 07/31/16 14:00 08/09/16 15:59 08/01/16 02:19 216 MLS/HR Albuterol/ Ipratropium (Duoneb) 3 ml Q6R INH 07/31/16 15:00 08/30/16 14:59 08/01/16 07:14 3 ML Enteral Nutritional Formula (Peptamen 1.5) 1,000 ml UD PO 08/01/16 07:15 08/31/16 07:14
[2016-08-01] MEDS ORDERED: CALCIUM GLUCONATE 10% 1,000 MG in SODIUM CHLORIDE 0.9% 50ML 50 ML IV SCH (10:00)
[2016-08-01] MEDS ORDERED: FUROSEMIDE INJ 20 MG in SYRINGE 0 ML IV SCH (10:00)
[2016-08-01] MEDS: LEVOTHYROXINE SODIUM INJ 37.5 MCG in SYRINGE 0 ML IV SCH (10:08)
[2016-08-01] MEDS: ENOXAPARIN 40 MG/0.4 ML SYR SQ SCH (10:09)
[2016-08-01] MEDS: ALUMINUM/MAGNESIUM SUSP 30 ML UDC NG SCH ×4 (10:09→20:16)
[2016-08-01] MEDS: CHLORHEXIDINE GLUCONATE 0.12% 480 ML MT SCH ×2 (10:09→20:16)
[2016-08-01] MEDS: PANTOprazole INJ 40 MG in SYRINGE 0 ML IV SCH (10:11)
[2016-08-01] MEDS: CASPOFUNGIN INJ 50 MG in SODIUM CHLORIDE 0.9% 250ML 250 ML IV SCH (10:11)
--- NOTE | 2016-08-01 11:15 | Critical Care Progress Note ---
Critical Care Progress Note Date of Service August 01, 2016. ICU Day ICU Day Number: [address] Mills Subjective Feeling good today; no pain when still; does get 7/10 abdominal pain with movement Doing well s/p extubation No events overnight; no output from ileostomy yet No other issues noted Objective Physical Exam: General: Comfortable, no apparent distress Eyes: PERRL, normal EOM bilaterally ENT: Mucous membranes moist, pharynx clear Neck: No JVD, no lymphadenopathy, no thyromegaly Lungs: Clear to auscultation bilaterally, no wheezing, no crackles, diminished at the bases; unable to auscultate posterior lung ruffin Heart: S1 and S2 with no added sounds or murmurs Abdomen: Bilateral MARIBEL drains with mild-moderate serous drainage; no blood; dressings intact, abdomen non-tender or erythematous around surgical site Extremities: No pitting edema, no asymmetric swelling, no calf pain or tenderness Neuro: Alert and orientated x 3, CAM screen negative, normal mood and affect Current SOFA Score SOFA Score Response (Comments) Value PaO2/FiO2 (mmHg) < 400 1 SaO2 / FIO2 221 - 301 1 [place] Coma Score 15 0 Level of Hypotension MAP less than 70 (Off pressors) 1 Total 3 Assessment & Plan 71 year old female presenting with acute bowel perforation. Her problem list includes - Septic shock secondary to perforated viscus and abdominal spillage. - Status post exploratory laparotomy, bowel resection with ileostomy and left salpingo-oophorectomy - Acute kidney injury on chronic kidney disease - History of MDR-E.coli UTI - Ecoli and Gram positive bacilli bacteremia - COPD with - Acute respiratory failure - Type 2 DM - Acute Anemia - Hypothyroidism NEUROLOGICAL - GCS 15; ICU-CAM negative - Pain regiment Tylenol 650 mg IV q6 h for mild-moderate pain 0.5 mg Dilaudid q4 hours PRN CARDIAC - BP: maintaining MAP > 65 - Hypotension, resolved - Off vasopressors - Off IV fluid RESPIRATORY - Day 1 status post-extubation; breathing comfortably, no evidence of respiratory distress Chronic Bronchitis / COPD Currently stable, no evidence of exacerbation Continue Duoneb GASTROINTESTINAL - Diet: Start clear liquid diet and monitor for stoma output Peptamen 20 ml / hr to monitor for return of bowel function - GI Prophylaxis: Protonix 40 mg IV daily Status post exploratory laparotomy, bowel resection with ileostomy and left salpingo-oophorectomy Surgical site appears well; dressing intact; no evidence of wound dehiscence MARIBEL drain output serous; no purulence Pathology pending from oorphorectomy - Surgery continuing to follow patient; recommendations appreciated RENAL//ENDOCRINE - Fluid Balance Cumulative: In 7800 ml; 4430 ml O; Net + 3400 ml Lasix 40 mg IV x 1 today - Cr: 0.85 back at baseline; improved from 1.4 on arrival - Electrolytes: Hypocalcemia: Calcium 7.0, ical 1.03 1 g IV Calcium gluconate; will adjunctively support patients BP - Currently No IV fluids infusing - Type 2 DM BSG well controlled betwen 80 and 160 Continue current SSI regimen - Hypothyroidism - Continue IV Levothyroxine HEME/ID - Tmax: 38.1 WBC: 38.1 - Hb/Hct 6.9/20.4 - Acute Anemia Hb 12 on arrival did have major abdominal surgery and was transfused 1 unit Acute drop in Hb over the past 48 hours: Hb 9.2 --> 6.9 Patient completely asymptomatic at this time; no evidence of bleeding from surgical site, urinary source, or from stoma Hb stable between 6.8 - 7.0 overnight; will not transfuse at this time as she appears to be improving clinically Reticulocyte count normal; points to likely etiology of BM suppression in the setting of sepsis on admission Follow daily H&H Transfuse ONLY IF: patient Hb < 6.5 OR patient develops symptomatic anemia; 2 units on hold History of MDR-E. coli on 07/20 and Abdominal Aspirate positive for E.coli and enterocuccus, and unspecified fungal infection - On Ampicillin, Ertapenem and Caspofungin - Low 38.1 this morning, despite antibiotics above - D/C above antibiotics and change to Imipenem/Cilastin ID consulted for recommendations - Will obtain 3 sets of cultures: 1 from CVC, 1 from peripheral site and culture of catheter tip - DVT Prophylaxis: Lovenox 40 mg daily LINES/IV ACCESS - R triple lumen IJ; plan to discontinue today - R wrist 20 g CODE STATUS - Full Code DISPOSITION - OT/PT: ordered - ICU Resident Physician Supervision Note: Dr. Phillips was resident physician during care of patient. I separately evaluated patient and did history and exam. I discussed the case with the resident and generally agree with the findings and plan. Change antibiotics to Primaxin to increase coverage against pseudomonas, will continue to evaluate on clinical response, continue caspofungin we will repeat set of blood cultures given continued fevers. We will culture central line and remove, she is allowed to take sips, we will trickle tube feeding down the NG tube until we're sure she is able tolerate feeds then discontinue NG tube. Discussed the case with general surgery, Dr. Powers. Patient critically ill due to continued systemic inflammatory response syndrome and concern for intra- abdominal infection secondary to intra-abdominal spillage of contents I have personally spent 35 minutes of critical care time in the direct management of this patient. This is a life/limb threatening event. This includes time spent evaluating patient, direct bedside care, chart review, placing orders, interpretation of diagnostic studies, discussion with consultants, patient, and family members, as well as other required patient management activities. This time is exclusive of all separately billable procedures, and teaching time and separate from and in addition to any other critical care service time. Documented By: Jacinto Mills DO Consults & Procedures Consultants: General Surgery - Dr. Powers Procedures: R CVL placed in OR Data Medications: Current Inpatient Medications Medications (Trade) Dose Ordered Sig/Kwabena Route Start Time Stop Time Status Last Admin Dose Admin Al Hydroxide/Mg Hydroxide 30 ml 30 ml QID NG 07/30/16 17:00 08/29/16 16:59 08/01/16 10:09 30 ML Norepinephrine Bitartrate/ Dextrose (Levophed Inj/ D5W 500ml) 508 ml @ 0 mls/hr Q0M PRN IV 07/30/16 13:24 08/29/16 13:23 07/31/16 00:03 44.5 MLS/HR Chlorhexidine Gluconate 15 ml 15 ml BID MT 07/30/16 21:00 08/29/16 20:59 08/01/16 10:09 15 ML Pantoprazole Sodium/Syringe (Protonix Inj/ Syringe) 10 ml @ 5 mls/min DAILY@11 IV 07/31/16 11:00 08/30/16 10:59 08/01/16 10:11 5 MLS/MIN Fentanyl Citrate (Fentanyl Inj) 50 mcg Q1H PRN IV 07/30/16 14:00 08/13/16 13:59 08/01/16 04:52 50 MCG Glucose (Glucose 40% Gel) 15-30 GRAMS 15 GRAMS... UD PRN PO 07/30/16 14:45 08/29/16 14:44 Glucose (Glucose Chew Tab) 4-8 Tablets 4 Tabl... UD PRN PO 07/30/16 14:45 08/29/16 14:44 Dextrose (Dextrose 50% 50ML Syringe) 25-50ML OF 50% DW IV FOR... UD PRN IV 07/30/16 14:45 08/29/16 14:44 Glucagon 1 mg 1 mg UD PRN SQ 07/30/16 14:45 08/29/16 14:44 Levothyroxine Sodium/Syringe (Synthroid Inj/ Syringe) 1.875 ml @ 2 mls/min DAILY@09 IV 07/31/16 09:00 08/30/16 08:59 08/01/16 10:08 2 MLS/MIN Insulin Aspart SLIDING SCALE Q6H SC 07/31/16 00:00 08/30/16 00:00 Caspofungin/ Sodium Chloride (Cancidas Inj/ Nss 250ml) 260 ml @ 250 mls/hr DAILY IV 08/01/16 09:00 08/31/16 08:59 08/01/16 10:11 250 MLS/HR Enoxaparin Sodium (Lovenox Inj) 40 mg QAM SQ 08/01/16 09:00 08/31/16 08:59 08/01/16 10:09 40 MG Albuterol/ Ipratropium (Duoneb) 3 ml Q6R INH 07/31/16 15:00 08/30/16 14:59 08/01/16 07:14 3 ML Enteral Nutritional Formula 1000 ml 1,000 ml UD PO 08/01/16 07:15 08/31/16 07:14 08/01/16 10:18 1,000 ML Acetaminophen/ Empty Bag (Ofirmev Iv/ Empty Iv Bag 100ml) 65 ml @ 260 mls/hr Q6H PRN IV 08/01/16 09:15 08/31/16 09:14 Hydromorphone HCl 0.5 mg 0.5 mg Q4H PRN IV 08/01/16 09:15 08/15/16 09:14 Furosemide 20 mg/ Syringe 2 ml @ 4 mls/min TODAY@1000 IV 08/01/16 10:00 5/9/17 12:00 08/01/16 10:17 4 MLS/MIN Imipenem/ Cilastatin Sodium 500 mg/Dextrose 110 ml @ 100 mls/hr Q6H IV 08/01/16 09:30 08/11/16 09:29 UNV Calcium Gluconate/ Sodium Chloride (Calcium Gluconate 10%/Nss 50ml) 60 ml @ 240 mls/hr TODAY@1000 IV 08/01/16 10:00 08/01/16 12:00 08/01/16 10:17 240 MLS/HR I & O: 24-Hour Column 08/01/16 08:00 Intake Total 2686 ml Output Total 2615 ml Balance 71 ml Vital Signs: Date Time Temp Pulse Resp B/P Pulse Ox O2 Delivery O2 Flow Rate FiO2 08/01/16 10:00 96 29 90/50 94 Nasal Cannula 2.0 08/01/16 08:00 96 18 106/49 92 Nasal Cannula 2.0 08/01/16 08:00 Nasal Cannula 2.0 08/01/16 07:15 93 20 96 Nasal Cannula 1.0 08/01/16 06:00 38.1 98 28 91/41 08/01/16 05:00 98 24 117/55 94 08/01/16 04:18 37.1 99 18 114/46 95 Nasal Cannula 2.0 08/01/16 04:00 Nasal Cannula 2.0 08/01/16 03:00 100 28 101/42 08/01/16 02:00 101 25 108/41 08/01/16 01:35 98 20 94 Nasal Cannula 1.0 08/01/16 01:00 98 30 110/46 08/01/16 00:19 36.6 99 18 121/59 94 1.0 07/31/16 23:59 Nasal Cannula 1.0 07/31/16 22:00 98 32 88/49 93 07/31/16 20:01 36.6 102 20 105/37 94 Nasal Cannula 2.0 07/31/16 20:00 Nasal Cannula 2.0 07/31/16 20:00 106 22 93 07/31/16 19:03 99 20 92 Nasal Cannula 1.0 07/31/16 18:00 37.0 102 22 102/59 94 07/31/16 16:00 Nasal Cannula 2.0 07/31/16 15:53 36.9 101 22 92/45 93 07/31/16 14:26 106 20 96 Nasal Cannula 3.0 07/31/16 14:10 106 28 104/45 92 07/31/16 14:05 102 32 101/48 91 07/31/16 14:01 101 28 75/34 90 07/31/16 14:00 101 30 90 07/31/16 13:45 99 29 94 07/31/16 13:30 99 27 106/42 98 07/31/16 13:15 100 29 97 07/31/16 13:00 97 30 96/41 99 07/31/16 12:45 104 30 97 07/31/16 12:30 99 30 95/58 98 07/31/16 12:15 101 23 97 07/31/16 12:00 Nasal Cannula 2.0 07/31/16 12:00 97 30 92/44 98 07/31/16 11:53 30 07/31/16 11:45 99 29 98 07/31/16 11:41 99 33 94/51 99 07/31/16 11:30 100 32 90 07/31/16 11:15 95 29 97/49 97 07/31/16 11:00 96 28 99/49 97 07/31/16 11:00 30 07/31/16 11:00 95 28 99/49 98 Mechanical Ventilator 30 Laboratory Results: Last 24 Hours Test 07/31/16 12:12 07/31/16 16:07 07/31/16 18:39 07/31/16 22:00 Bedside Glucose 107 mg/dl 87 mg/dl Hemoglobin 7.0 g/dL 6.8 g/dL Hematocrit 22.4 % 20.2 % Absolute Reticulocyte Count 0.04 10^6/uL Percent Reticulocyte Count 1.8 % Test 08/01/16 00:03 08/01/16 04:50 Bedside Glucose 86 mg/dl White Blood Count 7.71 K/uL Red Blood Count 2.41 M/uL Hemoglobin 6.9 g/dL Hematocrit 20.4 % Mean Corpuscular Volume 84.6 fL Mean Corpuscular Hemoglobin 28.6 pg Mean Corpuscular Hemoglobin Concent 33.8 g/dl Platelet Count 182 K/uL Mean Platelet Volume 10.2 fL Neutrophils (%) (Auto) 84.8 % Lymphocytes (%) (Auto) 11.0 % Monocytes (%) (Auto) 1.6 % Eosinophils (%) (Auto) 1.2 % Basophils (%) (Auto) 0.1 % Neutrophils # (Auto) 6.54 K/uL Lymphocytes # (Auto) 0.85 K/uL Monocytes # (Auto) 0.12 K/uL Eosinophils # (Auto) 0.09 K/uL Basophils # (Auto) 0.01 K/uL RDW Standard Deviation 52.4 fL RDW Coefficient of Variation 17.1 % Immature Granulocyte % (Auto) 1.3 % Immature Granulocyte # (Auto) 0.10 K/uL Echinocytes 1+ Sodium Level 144 mmol/L Potassium Level 3.5 mmol/L Chloride Level 111 mmol/L Carbon Dioxide Level 26 mmol/L Anion Gap 7.0 mmol/L Blood Urea Nitrogen 20 mg/dl Creatinine 0.85 mg/dl Est Creatinine Clear Calc Drug Dose 62.0 ml/min Estimated GFR () 80.5 Estimated GFR (Non- 69.4 BUN/Creatinine Ratio 23.8 Random Glucose 81 mg/dl Calcium Level 7.0 mg/dl Ionized Calcium 1.03 mmol/l Phosphorus Level 2.6 mg/dl Magnesium Level 2.3 mg/dl Total Bilirubin 0.3 mg/dl Aspartate Amino Transf (AST/SGOT) 10 U/L Alanine Aminotransferase (ALT/SGPT) 12 U/L Alkaline Phosphatase 37 U/L Total Protein 4.3 gm/dl Albumin 1.7 gm/dl Globulin 2.6 gm/dl Albumin/Globulin Ratio 0.7
[2016-08-01] MEDS: IMIPENEM/CILASTATIN IV 500 MG in DEXTROSE 5% 100ML 100 ML IV SCH ×3 (11:34→23:12)
--- NOTE | 2016-08-01 11:49 | Clinical Documentation Query ---
CHERIE Delaney : CLINICAL DOCUMENTATION QUERY Patient is a 71 year old female who underwent emergent exploratory laparotomy, bowel resection, colostomy creation, and left salpingo-oophorectomy on 07/30. Admission hemoglobin and hematocrit were 9.2 g/dl and 28.9%. POD #1, values were 6.8 g/dl and 20.2%. She has been treated with transfusion of PRBC's and monitored with serial hematology and I/O including drain outputs. Documentation includes "ANEMIA -- likely acute from colon perforation, post op state" Although implied, this does not equate with the statement as suggested below. In your clinical opinion is this patient being managed for: ( ) Acute blood loss anemia ( X ) Other explanation of clinical findings (Please Explain) Possible Acute Blood Loss Anemia ( ) Unable to determine (Please Define) ( ) Need to Discuss ( ) Not Agree The medical record reflects the following clinical findings, treatment, and risk factors. Clinical Indicators: As above Treatment: She has been treated with transfusion of PRBC's and monitored with serial hematology and I/O including drain outputs Risk Factors: Acute perioperative blood losses. Please clarify and document your clinical opinion in the progress notes and discharge summary. Terms such as "probable", "suspected", "likely", "questionable", "possible", or "still to be ruled out" are acceptable. IF IN AGREEMENT, YOU MUST DOCUMENT ABOVE DIAGNOSTIC STATEMENT IN DAILY PROGRESS NOTES AND DISCHARGE SUMMARY. This document is not part of the patient's record. Thank You, Jacinto Fiore, RN [phone]
--- NOTE | 2016-08-01 14:27 | Progress Note ---
Progress Note Date of Service August 01, 2016. Progress Note ID Consult Dictated # [id number] A/P: 1.Sepsis secondary to peritonitis 2. Fever -Continue emperic abx, follow cultures -Line removed today, await culture results -Will follow, thank you
[2016-08-01] MEDS: ACETAMINOPHEN IV 650 MG in EMPTY BAG 0 ML IV PRN (20:17)
[2016-08-01] MEDS ORDERED: NURSING DECISION MEDICATION ORDER SCH (22:45)
[2016-08-02] VITALS (17 sets, daily range): BP systolic 101–131; BP diastolic 49–68; PULSE 77–93; TEMP 36.4–36.8; O2SAT 91–98
--- NOTE | 2016-08-02 00:02 | INFECT. DISEASE CONSULTATION ---
DATE OF CONSULTATION: 08/01/2016 REQUESTING PHYSICIAN: Дмитрий Powers MD HISTORY OF PRESENT ILLNESS: This is a 71-year-old who was admitted on the after she had sudden onset of abdominal pain. She denies any nausea and vomiting associated with this. She did undergo a CAT scan of the abdomen in the Emergency Room and was found to have free air related to perforated viscus. She was taken to the OR on the where she underwent a washout and exploratory laparotomy. She was found to have a perforation in the colon and a right colectomy was performed. She tolerated this procedure well. She initially had a low white count, but now she is up to normal level. She was placed on multiple empiric antibiotics and currently she is on imipenem, caspofungin and Levaquin. Her current white count is 7.8. She was afebrile throughout this admission until overnight, when she had a T-max of 38.1. On my examination, her central line is being removed and the tip is being sent for culture. She did have blood cultures from the , there are no growth. She had repeat blood cultures on the and again today, both of which are pending. An intraoperative culture is growing a non-Romy yeast and E. coli from which sensitivities are pending. She is tolerating antibiotics well. She does have an NG tube in place but states she has eaten twice and is tolerating that well. She currently denies any pain. She denies any fevers but states she had chills earlier this afternoon. All remaining review of systems on my examination is unremarkable. PAST MEDICAL HISTORY: Significant for chronic kidney disease, COPD, depression, type 2 diabetes and hypothyroidism. She has no previous surgical history other than a colonoscopy 7 years ago which was unremarkable per patient. FAMILY HISTORY: Significant for colon cancer. SOCIAL HISTORY: Significant for history of tobacco use. She denies any alcohol or drug use. She lives alone. ALLERGIES: SHE HAS AN ALLERGY TO PENICILLIN WHICH REPORTEDLY CAUSES ITCHING, but she is tolerating imipenem well and reportedly has tolerated Zosyn in the past as well. CURRENT MEDICATIONS: Include imipenem, acetaminophen, Dilaudid, caspofungin, Lovenox, albuterol, Protonix, levothyroxine, insulin, peridex, Maalox and norepinephrine. PHYSICAL EXAMINATION: VITAL SIGNS: Current temperature is 37.6, T-max overnight is 38.1. She has previously been afebrile, pulse 98, respiratory rate is in the 20s, blood pressure 90/50 last recorded at 10:00 a.m. Oxygen saturation is 94% on 2 liters. GENERAL: She is awake, alert and oriented x3. She is in no acute distress. HEENT: Mucous membranes are dry. Extraocular muscles are intact. HEART: Regular. LUNGS: Clear with decreased breath sounds. ABDOMEN: Soft. SKIN: Without rash. Right IJ catheter is being removed on my examination. LABORATORY STUDIES: CBC today reveals a white blood cell count of 7.7, hemoglobin 6.9, platelets are 182. Chemistry panel today reveals a sodium of 144, potassium 3.5, chloride 111, bicarbonate 26, BUN 20, creatinine 0.8 and glucose is 81. LFTs are within normal limits. Again on July 30, abdominal fluid is growing E. coli and albicans yeast. Blood cultures from the are no growth to date. Blood cultures from the and are pending. Most recent chest x-ray was done yesterday and shows trace bilateral effusions with no consolidation. CAT scan of the abdomen is as previously reported. ASSESSMENT AND PLAN: 1. Sepsis, secondary to peritonitis. 2. Fever. At this time, she can be continued on broad spectrum antibiotics pending the results of her abdominal fluid cultures. Blood cultures are negative to date. Repeat blood cultures were done today with fever as well as a central line tip culture. I will await the results of those. We will follow along with you. Thank you for this consultation. MIKE
[2016-08-02] MEDS: ALBUT/IPRATROP 3MG/0.5MG NEB 3 ML VIAL INH SCH ×4 (02:09→19:35)
[2016-08-02] MEDS: HYDROmorphone INJ 0.5 MG/0.5 ML SYR IV PRN (04:21)
[2016-08-02] MEDS ORDERED: ONDANSETRON INJ 2 MG/ML 2 ML VIAL ONE (04:22)
[2016-08-02] MEDS ORDERED: ONDANSETRON INJ 2 MG/ML 2 ML VIAL IV STA (04:34)
[2016-08-02] MEDS: IMIPENEM/CILASTATIN IV 500 MG in DEXTROSE 5% 100ML 100 ML IV SCH ×3 (05:27→17:17)
[2016-08-02] MEDS: INSULIN ASPART 100 UNITS/ML 3 ML PEN SC SCH ×3 (06:00→17:20)
[2016-08-02 06:01] LABS: HEMATOCRIT 24.2 % (37-47); MEAN CELL VOLUME 85.2 fL (80-100); MEAN CORPUSCULAR HEMOGLOBIN 28.5 pg (25-34); MEAN CORPUSCULAR HGB CONC 33.5 g/dl (32-36); MEAN PLATELET VOLUME 10.6 fL (7.4-10.4); PLATELET COUNT 194 K/uL (130-400); RED BLOOD COUNT 2.84 M/uL (4.2-5.4); WHITE BLOOD COUNT 8.17 K/uL (4.8-10.8)
[2016-08-02 06:41] LABS: BUN/CREATININE RATIO 27.1 (10-20); CALCIUM 7.8 mg/dl (8.5-10.1); CREATININE 0.67 mg/dl (0.60-1.20); MAGNESIUM 2.2 mg/dl (1.8-2.4); POTASSIUM 3.2 mmol/L (3.5-5.1)
[2016-08-02 06:44] LABS: ALB/GLOB RATIO 0.6 (0.9-2); PHOSPHORUS 2.1 mg/dl (2.5-4.9)
[2016-08-02 07:10] LABS: BASO % 0.1 %; BASO ABS # 0.01 K/uL (0-0.2); COMPLETE YES; DOHLE BODIES 1+; EOS % 2.1 %; IG% 0.6 %; LYMPH % 8.4 %; LYMPH ABS # 0.69 K/uL (1.2-3.4); MONO % 3.7 %; NEUT % 85.1 %; POIKILOCYTOSIS PRESENT
[2016-08-02] MEDS ORDERED: ONDANSETRON INJ 2 MG/ML 2 ML VIAL IV PRN (08:00)
[2016-08-02] MEDS: CHLORHEXIDINE GLUCONATE 0.12% 480 ML MT SCH ×2 (08:16→21:08)
[2016-08-02] MEDS: ACETAMINOPHEN IV 650 MG in EMPTY BAG 0 ML IV PRN ×2 (08:16→22:36)
[2016-08-02] MEDS: CASPOFUNGIN INJ 50 MG in SODIUM CHLORIDE 0.9% 250ML 250 ML IV SCH (08:16)
[2016-08-02] MEDS: ENOXAPARIN 40 MG/0.4 ML SYR SQ SCH (08:17)
[2016-08-02] MEDS: ALUMINUM/MAGNESIUM SUSP 30 ML UDC NG SCH ×4 (08:17→21:10)
[2016-08-02] MEDS ORDERED: POTASSIUM PHOS 3 MMOL/1 ML INFUSION IV STA (08:44)
[2016-08-02] MEDS: LEVOTHYROXINE SODIUM INJ 37.5 MCG in SYRINGE 0 ML IV SCH (09:00)
[2016-08-02] MEDS ORDERED: POTASSIUM PHOSPHATE INJ 21 MMOL in SODIUM CHLORIDE 0.9% 500ML 500 ML IV SCH (09:00)
--- NOTE | 2016-08-02 10:26 | Surgery Progress Note ---
Surgery Progress Note Date of Service August 02, 2016. Subjective Post OP Day: 3 + nausea, + pain controlled, + vomiting, No SOB, No chest pain Not feeling well today + nausea and vomiting (vomited about 1000 mls into basin yellow/morse liquid) another 800 cc suctioned via NGT abdominal pain controlled when lying down,controlled with Tylenol this morning Objective Vital Signs: Date Time Temp Pulse Resp B/P Pulse Ox O2 Delivery O2 Flow Rate FiO2 08/02/16 10:00 77 23 121/62 96 Nasal Cannula 3.0 08/02/16 08:00 36.4 81 17 126/63 95 Nasal Cannula 3.0 08/02/16 08:00 Nasal Cannula 2.0 08/02/16 07:35 84 20 92 Nasal Cannula 3.0 08/02/16 06:00 79 26 131/54 93 08/02/16 04:00 94 Nasal Cannula 2.0 08/02/16 04:00 93 29 116/55 92 08/02/16 03:00 86 26 119/49 92 08/02/16 02:09 88 20 92 Nasal Cannula 2.0 08/02/16 02:00 90 26 118/50 92 08/02/16 01:00 87 27 102/64 94 08/02/16 00:01 87 26 111/60 96 08/01/16 23:59 94 Nasal Cannula 2.0 08/01/16 23:00 36.6 86 23 96/49 95 08/01/16 22:00 84 21 104/47 92 08/01/16 21:00 91 26 91/50 93 08/01/16 20:00 89 25 104/43 94 08/01/16 20:00 94 Nasal Cannula 2.0 08/01/16 19:19 95 20 96 Nasal Cannula 1.0 08/01/16 18:05 93 26 99/41 95 Nasal Cannula 3.0 08/01/16 16:02 36.9 93 26 107/48 93 2.0 08/01/16 15:45 94 Nasal Cannula 2.0 08/01/16 14:08 92 23 100/50 74 Nasal Cannula 2.0 08/01/16 12:00 Nasal Cannula 2.0 08/01/16 11:45 37.6 08/01/16 11:20 98 94 Physical Exam: MARIBEL drainage (2 bulbs serosanguineous drainage), nasogastric drainage (morse/yellow thick liquid), urine output (elsa yellow output) General Appearance: WD/WN, no apparent distress Head: normocephalic, atraumatic Neck: trachea midline Respiratory/Chest: lungs clear, normal breath sounds, no respiratory distress, no accessory muscle use Cardiovascular: regular rate, rhythm, no murmur Abdomen: non distended, soft, + tenderness (appropriate post op) Incision(s): clean, dry, intact, findings (Midline incision with wound vac present, ileostomy pink and functioning with clear serous drianage, mucous fistula slightly dusky with mucous output) Laboratory Results: Results Past 24 Hours Test 08/01/16 11:28 08/01/16 15:29 08/01/16 23:15 08/02/16 05:36 Range/Units Bedside Glucose 81 89 85 70-90 mg/dl White Blood Count 8.17 4.8-10.8 K/uL Red Blood Count 2.84 4.2-5.4 M/uL Hemoglobin 8.1 12.0-16.0 g/dL Hematocrit 24.2 37-47 % Mean Corpuscular Volume 85.2 80-100 fL Mean Corpuscular Hemoglobin 28.5 25-34 pg Mean Corpuscular Hemoglobin Concent 33.5 32-36 g/dl Platelet Count 194 130-400 K/uL Mean Platelet Volume 10.6 7.4-10.4 fL Neutrophils (%) (Auto) 85.1 % Lymphocytes (%) (Auto) 8.4 % Monocytes (%) (Auto) 3.7 % Eosinophils (%) (Auto) 2.1 % Basophils (%) (Auto) 0.1 % Neutrophils # (Auto) 6.95 1.4-6.5 K/uL Lymphocytes # (Auto) 0.69 1.2-3.4 K/uL Monocytes # (Auto) 0.30 0.11-0.59 K/uL Eosinophils # (Auto) 0.17 0-0.5 K/uL Basophils # (Auto) 0.01 0-0.2 K/uL RDW Standard Deviation 53.4 36.4-46.3 fL RDW Coefficient of Variation 16.9 11.5-14.5 % Immature Granulocyte % (Auto) 0.6 % Immature Granulocyte # (Auto) 0.05 0.00-0.02 K/uL Dohle Bodies 1+ Poikilocytosis PRESENT Sodium Level 141 136-145 mmol/L Potassium Level 3.2 3.5-5.1 mmol/L Chloride Level 108 98-107 mmol/L Carbon Dioxide Level 27 21-32 mmol/L Anion Gap 6.0 3-11 mmol/L Blood Urea Nitrogen 18 7-18 mg/dl Creatinine 0.67 0.60-1.20 mg/dl Est Creatinine Clear Calc Drug Dose 79.4 ml/min Estimated GFR () 103.2 Estimated GFR (Non- 89.1 BUN/Creatinine Ratio 27.1 10-20 Random Glucose 100 70-99 mg/dl Calcium Level 7.8 8.5-10.1 mg/dl Phosphorus Level 2.1 2.5-4.9 mg/dl Magnesium Level 2.2 1.8-2.4 mg/dl Total Bilirubin 0.5 0.2-1 mg/dl Aspartate Amino Transf (AST/SGOT) 7 15-37 U/L Alanine Aminotransferase (ALT/SGPT) 9 12-78 U/L Alkaline Phosphatase 62 45-117 U/L Total Protein 5.3 6.4-8.2 gm/dl Albumin 1.9 3.4-5.0 gm/dl Globulin 3.4 2.5-4.0 gm/dl Albumin/Globulin Ratio 0.6 0.9-2 Test 08/02/16 06:29 Range/Units Bedside Glucose 119 70-90 mg/dl Microbiology Results 08/01/16 Catheter Tip Culture, Received Pending Assessment & Plan POD # 3 s/p exploratory laparotomy , right hemicolectomy with ileostomy formation and mucous fistula - vitals stable - H&H improved (8.1/24.2) Hemoglobin 6.9 yesterday - ostomy pink with serous output - + nausea and emesis (1 Liter emesis) - NGT with moderate output after emesis (~800 mls), tube feedings stopped - adequate urine output, BUN/creatinine wnl Plan: Continue pain management with IV Tylenol and IV Dilaudid prn pain Continue IV antibiotics and Caspofungin Hold tube feeds and continue NGT to Low intermittent suction Patient may have ice chips Continue wound vac settings and MARIBEL drain to bulb suction Continue Ward Catheter Continue Lovenox for DVT prophylaxis Repeat am labs Will transfer to surgical floor today as patient stable and does not require ICU monitoring Re-examined patient with Dr. Powers at 3:40 pm, patient now on surgical floor , room 311. Pain controlled No further nausea or vomiting Dry mouth/thirsty Continue NGT to LIS May have ice chips Hold Tube feedings Continue current management above Dr. Powers has seen and examined patient, agrees with above
[2016-08-02] MEDS: PANTOprazole INJ 40 MG in SYRINGE 0 ML IV SCH (10:50)
--- NOTE | 2016-08-02 11:48 | Critical Care Progress Note ---
Critical Care Progress Note Date of Service August 02, 2016. ICU Day ICU Day Number: [address] Mills Subjective Patient describes getting some nausea starting approximately 4 on the morning Did get Dilaudid, Zofran, at that time; is improved slightly Otherwise, has mild clear drainage from her ileostomy pouch Notes that her abdominal pain is overall improving. Does not have abdominal distention. No other acute issues overnight Objective Physical Exam: General: Comfortable, no apparent distress Eyes: PERRL, normal EOM bilaterally ENT: Mucous membranes moist, pharynx clear Neck: No JVD, no lymphadenopathy, no thyromegaly Lungs: Clear to auscultation bilaterally, no wheezing, no crackles, diminished at the bases; unable to auscultate posterior lung ruffin Heart: S1 and S2 with no added sounds or murmurs Abdomen: Bilateral MARIBEL drains with mild-moderate serous drainage; no blood; dressings intact, abdomen non-tender or erythematous around surgical site Extremities: No pitting edema, no asymmetric swelling, no calf pain or tenderness Neuro: Alert and orientated x 3, CAM screen negative, normal mood and affect Current SOFA Score SOFA Score Response (Comments) Value PaO2/FiO2 (mmHg) < 400 1 SaO2 / FIO2 221 - 301 1 [place] Coma Score 15 0 Level of Hypotension No Hypotension (Off pressors) 0 Total 2 Previous SOFA Scores 3 Assessment & Plan (1) Perforation of colon (2) Septic shock (3) Perforated viscus (4) DM type 2 (diabetes mellitus, type 2) (5) Hypothyroidism (6) COPD, moderate (7) S/P oophorectomy (8) Acute blood loss anemia (9) Depression 71 year old female presenting with acute bowel perforation. Her problem list includes - Septic shock secondary to perforated viscus and abdominal spillage. - Status post exploratory laparotomy, bowel resection with ileostomy and left salpingo-oophorectomy - Acute kidney injury on chronic kidney disease - History of MDR-E.coli UTI - Ecoli and Gram positive bacilli bacteremia - COPD with Acute respiratory failure - Type 2 DM - Acute Anemia - Hypothyroidism Our plan for her is as follows NEUROLOGICAL - GCS 15; ICU-CAM negative - Pain regiment Tylenol 650 mg IV q6 h for mild-moderate pain 0.5 mg Dilaudid q4 hours PRN - Depression: Hold Zoloft until by mouth is tolerated CARDIAC - BP: maintaining MAP > 65 - Hypotension, resolved - Off vasopressors - Off IV fluid RESPIRATORY COPD with acute respiratory failure, resolved - Status post-extubation day 2; breathing comfortably, no evidence of respiratory distress Chronic Bronchitis / COPD Currently stable, no evidence of exacerbation Continue Duoneb GASTROINTESTINAL - Diet: Start clear liquid diet and monitor for stoma output Peptamen 20 ml / hr to monitor for return of bowel function - GI Prophylaxis: Protonix 40 mg IV daily Nausea/vomiting - Reglan every 6 hours - Presumed lower intermittent suction from NG tube - Continue low rate Peptamen feeds; hold oral feeding Status post exploratory laparotomy, bowel resection with ileostomy and left salpingo-oophorectomy Surgical site appears well; dressing intact; no evidence of wound dehiscence ; MARIBEL drain output serous without no purulence Pathology pending from oorphorectomy - Surgery continuing to follow patient; recommendations appreciated RENAL//ENDOCRINE - Fluid Balance Neck +1.7 L ; adequate urine output Was net -1.2 L yesterday after 40 mg IV Lasix; hold off on diuresis today - Cr: 0. 67, improved compared to baseline - Electrolytes: Hypocalcemia: Improved to 7.8 after 1 g of IV calcium gluconate; repeat calcium level with morning labs Hypokalemia : 3.2 ; 21 mmol K-Phos ; repeat with morning labs Hypophosphatemia: 2.1; total millimoles K-Phos: Repeat with morning labs - Currently No IV fluids infusing - Type 2 DM: BSG well control, slightly lower than goal of 140-180 Sliding scale regimen: Widened correction factor to 40 and carb ratio to 15 Continue before meals and at bedtime checks - Hypothyroidism - Continue IV Levothyroxine HEME/ID - Tmax: Afebrile WBC 8 - Hb/Hct: 8.1/24.2 6.9/20.4 - Acute Anemia Hb 12 on arrival did have major abdominal surgery and was transfused 1 unit Hemoglobin had dropped to as low as 6.8; has since recovered this morning to 8.1; has remained asymptomatic; there is no indication to transfuse additional blood at this time Tinnitus monitor daily CBC Transfuse ONLY IF: patient Hb < 6.5 OR patient develops symptomatic anemia; 2 units on hold History of MDR-E. coli on 07/20 and Abdominal Aspirate positive for E.coli and enterocuccus, and unspecified fungal infection - Continue caspofungin and imipenem/Cilastin; sensitivities on abdominal aspirate has come back demonstrating sensitivity to imipenem; adjust antibiotics per infectious diseases recommendations - Infectious diseases has been consulted; recommendations are appreciated - 3 x cultures are pending One Drawn from central line; one drawn from peripheral site; catheter tip sent for culture - DVT Prophylaxis: Lovenox 40 mg daily LINES/IV ACCESS - R triple lumen IJ has been discontinued - R wrist 20 g CODE STATUS - Full Code DISPOSITION - OT/PT: ordered - The patient is hemodynamically stable at this time and is stable to be transferred to telemetry Resident Physician Supervision Note: Dr. Phillips was resident physician during care of patient. I separately evaluated patient and did history and exam. I discussed the case with the resident and generally agree with the findings and plan. Medically complex, likely has postoperative ileus, episode of vomiting and high volume residual stopped tube feedings and clears and restarted NG section to lower intermittent. Currently lying free, on Invanz and caspofungin secondary to gross contamination of the abdomen treatment linked to be determined by clinical response. Has remained largely hemodynamically stable, stable for downgraded out of the ICU, encouraging ambulation. Documented By: Jacinto Mills DO Consults & Procedures Consultants: General Surgery - Dr. Powers Procedures: R CVL placed in OR --> has now been discontinued Data Medications: Current Inpatient Medications Medications (Trade) Dose Ordered Sig/[place] Route Start Time Stop Time Status Last Admin Dose Admin Al Hydroxide/Mg Hydroxide (Maalox Susp) 30 ml QID NG 07/30/16 17:00 08/29/16 16:59 08/01/16 20:16 30 ML Chlorhexidine Gluconate 15 ml 15 ml BID MT 07/30/16 21:00 08/29/16 20:59 08/02/16 08:16 15 ML Pantoprazole Sodium/Syringe (Protonix Inj/ Syringe) 10 ml @ 5 mls/min DAILY@11 IV 07/31/16 11:00 08/02/16 12:00 08/02/16 10:50 5 MLS/MIN Glucose (Glucose 40% Gel) 15-30 GRAMS 15 GRAMS... UD PRN PO 07/30/16 14:45 08/29/16 14:44 Glucose (Glucose Chew Tab) 4-8 Tablets 4 Tabl... UD PRN PO 07/30/16 14:45 08/29/16 14:44 Dextrose (Dextrose 50% 50ML Syringe) 25-50ML OF 50% DW IV FOR... UD PRN IV 07/30/16 14:45 08/29/16 14:44 Glucagon 1 mg 1 mg UD PRN SQ 07/30/16 14:45 08/29/16 14:44 Levothyroxine Sodium/Syringe (Synthroid Inj/ Syringe) 1.875 ml @ 2 mls/min DAILY@09 IV 07/31/16 09:00 08/30/16 08:59 08/02/16 09:00 2 MLS/MIN Insulin Aspart SLIDING SCALE Q6H SC 07/31/16 00:00 08/30/16 00:00 Caspofungin/ Sodium Chloride (Cancidas Inj/ Nss 250ml) 260 ml @ 250 mls/hr DAILY IV 08/01/16 09:00 08/31/16 08:59 08/02/16 08:16 250 MLS/HR Enoxaparin Sodium (Lovenox Inj) 40 mg QAM SQ 08/01/16 09:00 08/31/16 08:59 08/02/16 08:17 40 MG Albuterol/ Ipratropium (Duoneb) 3 ml Q6R INH 07/31/16 15:00 08/30/16 14:59 08/02/16 07:35 3 ML Enteral Nutritional Formula 1000 ml 1,000 ml UD PO 08/01/16 07:15 08/31/16 07:14 08/01/16 10:18 1,000 ML Acetaminophen/ Empty Bag (Ofirmev Iv/ Empty Iv Bag 100ml) 65 ml @ 260 mls/hr Q6H PRN IV 08/01/16 09:15 08/31/16 09:14 08/02/16 08:16 260 MLS/HR Hydromorphone HCl 0.5 mg 0.5 mg Q4H PRN IV 08/01/16 09:15 08/15/16 09:14 08/02/16 04:21 0.5 MG Imipenem/ Cilastatin Sodium 500 mg/Dextrose 110 ml @ 100 mls/hr Q6 IV 08/01/16 11:00 08/11/16 10:59 08/02/16 05:27 100 MLS/HR Potassium Phosphate/Sodium Chloride (Potassium Phosphate Inj/Nss 500ml) 507 ml @ 88 mls/hr TODAY@0900 IV 08/02/16 09:00 08/02/16 16:00 08/02/16 10:49 88 MLS/HR Metoclopramide HCl 10 mg 10 mg Q6H PRN IV 08/02/16 10:00 09/01/16 09:59 Famotidine/ Dextrose (Pepcid IV Inj/ D5 100ml) 102 ml @ 204 mls/hr Q12H IV 08/02/16 22:00 09/01/16 21:59 I & O: 24-Hour Column 08/02/16 08:00 Intake Total 2189 ml Output Total 3870 ml Balance -1681 ml Vital Signs: Date Time Temp Pulse Resp B/P Pulse Ox O2 Delivery O2 Flow Rate FiO2 08/02/16 10:00 77 23 121/62 96 Nasal Cannula 3.0 08/02/16 08:00 36.4 81 17 126/63 95 Nasal Cannula 3.0 08/02/16 08:00 Nasal Cannula 2.0 08/02/16 07:35 84 20 92 Nasal Cannula 3.0 08/02/16 06:00 79 26 131/54 93 08/02/16 04:00 94 Nasal Cannula 2.0 08/02/16 04:00 93 29 116/55 92 08/02/16 03:00 86 26 119/49 92 08/02/16 02:09 88 20 92 Nasal Cannula 2.0 08/02/16 02:00 90 26 118/50 92 08/02/16 01:00 87 27 102/64 94 08/02/16 00:01 87 26 111/60 96 08/01/16 23:59 94 Nasal Cannula 2.0 08/01/16 23:00 36.6 86 23 96/49 95 08/01/16 22:00 84 21 104/47 92 08/01/16 21:00 91 26 91/50 93 08/01/16 20:00 89 25 104/43 94 08/01/16 20:00 94 Nasal Cannula 2.0 08/01/16 19:19 95 20 96 Nasal Cannula 1.0 08/01/16 18:05 93 26 99/41 95 Nasal Cannula 3.0 08/01/16 16:02 36.9 93 26 107/48 93 2.0 08/01/16 15:45 94 Nasal Cannula 2.0 08/01/16 14:08 92 23 100/50 74 Nasal Cannula 2.0 08/01/16 12:00 Nasal Cannula 2.0 08/01/16 11:45 37.6 Laboratory Results: Last 24 Hours Test 08/01/16 15:29 08/01/16 23:15 08/02/16 05:36 08/02/16 06:29 Bedside Glucose 89 mg/dl 85 mg/dl 119 mg/dl White Blood Count 8.17 K/uL Red Blood Count 2.84 M/uL Hemoglobin 8.1 g/dL Hematocrit 24.2 % Mean Corpuscular Volume 85.2 fL Mean Corpuscular Hemoglobin 28.5 pg Mean Corpuscular Hemoglobin Concent 33.5 g/dl Platelet Count 194 K/uL Mean Platelet Volume 10.6 fL Neutrophils (%) (Auto) 85.1 % Lymphocytes (%) (Auto) 8.4 % Monocytes (%) (Auto) 3.7 % Eosinophils (%) (Auto) 2.1 % Basophils (%) (Auto) 0.1 % Neutrophils # (Auto) 6.95 K/uL Lymphocytes # (Auto) 0.69 K/uL Monocytes # (Auto) 0.30 K/uL Eosinophils # (Auto) 0.17 K/uL Basophils # (Auto) 0.01 K/uL RDW Standard Deviation 53.4 fL RDW Coefficient of Variation 16.9 % Immature Granulocyte % (Auto) 0.6 % Immature Granulocyte # (Auto) 0.05 K/uL Dohle Bodies 1+ Poikilocytosis PRESENT Sodium Level 141 mmol/L Potassium Level 3.2 mmol/L Chloride Level 108 mmol/L Carbon Dioxide Level 27 mmol/L Anion Gap 6.0 mmol/L Blood Urea Nitrogen 18 mg/dl Creatinine 0.67 mg/dl Est Creatinine Clear Calc Drug Dose 79.4 ml/min Estimated GFR () 103.2 Estimated GFR (Non- 89.1 BUN/Creatinine Ratio 27.1 Random Glucose 100 mg/dl Calcium Level 7.8 mg/dl Phosphorus Level 2.1 mg/dl Magnesium Level 2.2 mg/dl Total Bilirubin 0.5 mg/dl Aspartate Amino Transf (AST/SGOT) 7 U/L Alanine Aminotransferase (ALT/SGPT) 9 U/L Alkaline Phosphatase 62 U/L Total Protein 5.3 gm/dl Albumin 1.9 gm/dl Globulin 3.4 gm/dl Albumin/Globulin Ratio 0.6
[2016-08-02] MEDS: METOCLOPRAMIDE HCL INJ 5 MG/ML 2 ML VIAL IV PRN (12:38)
--- NOTE | 2016-08-02 14:42 | Progress Note ---
Subjective Date of Service: August 02, 2016. Subjective remain afebrile. central line removed yesterday. blood cultures remain negative. OR culture with E. coli, fairly resistant but sensitive to carbapenems , also grew non albicans yeast. tolerating abx. wbc improving, h/h improved. no overnight events. blood cultures remain negative. Problem List Medical Problems: (1) Closed head injury Status: Acute (2) Dehydration Status: Acute (3) Fall Status: Acute (4) Hypothermia Status: Acute (5) Perforated viscus Status: Acute (6) Perforation of cecum Status: Acute (7) Pressure ulcer Status: Acute (8) Rhabdomyolysis Status: Acute (9) Septic shock Status: Acute (10) UTI (urinary tract infection) Status: Acute Objective Vital Signs Date Time Temp Pulse Resp B/P Pulse Ox O2 Delivery O2 Flow Rate FiO2 08/02/16 14:26 84 20 98 Nasal Cannula 3.0 08/02/16 12:00 36.8 77 20 115/57 94 Nasal Cannula 3.0 08/02/16 12:00 Nasal Cannula 3.0 08/02/16 10:00 77 23 121/62 96 Nasal Cannula 3.0 08/02/16 08:00 36.4 81 17 126/63 95 Nasal Cannula 3.0 08/02/16 08:00 Nasal Cannula 2.0 08/02/16 07:35 84 20 92 Nasal Cannula 3.0 08/02/16 06:00 79 26 131/54 93 08/02/16 04:00 94 Nasal Cannula 2.0 08/02/16 04:00 93 29 116/55 92 08/02/16 03:00 86 26 119/49 92 08/02/16 02:09 88 20 92 Nasal Cannula 2.0 08/02/16 02:00 90 26 118/50 92 08/02/16 01:00 87 27 102/64 94 08/02/16 00:01 87 26 111/60 96 08/01/16 23:59 94 Nasal Cannula 2.0 08/01/16 23:00 36.6 86 23 96/49 95 08/01/16 22:00 84 21 104/47 92 08/01/16 21:00 91 26 91/50 93 08/01/16 20:00 89 25 104/43 94 08/01/16 20:00 94 Nasal Cannula 2.0 08/01/16 19:19 95 20 96 Nasal Cannula 1.0 08/01/16 18:05 93 26 99/41 95 Nasal Cannula 3.0 08/01/16 16:02 36.9 93 26 107/48 93 2.0 08/01/16 15:45 94 Nasal Cannula 2.0 Laboratory Results Item Value Date Time C.difficile Toxin B Gene (PCR) - Final Complete 07/20/16 1420 Stool No C. difficile toxin B gene detected Blood Culture - Preliminary Resulted 07/17/16 0920 Blood NO GROWTH TO DATE. Blood Culture - Preliminary Resulted 07/17/16 0920 Blood NO GROWTH TO DATE. Urine Culture - Final Complete 07/16/16 1622 Urine,Catheterized Escherichia Coli Blood Culture - Final Complete 07/16/16 1600 Blood Enterococcus Faecalis Gram Stain - Final Resulted 07/30/16 0000 Aspirate - Other Abdomen Blood Culture - Preliminary Resulted 07/30/16 0345 Blood NO GROWTH TO DATE. Blood Culture - Preliminary Resulted 07/30/16 0355 Blood NO GROWTH TO DATE. Blood Culture - Preliminary Resulted 07/31/16 0842 Blood NO GROWTH TO DATE. Gram Stain - Final Resulted 07/30/16 0000 Aspirate - Other Abdomen Last 24 Hours Test 08/01/16 15:29 08/01/16 23:15 08/02/16 05:36 08/02/16 06:29 Bedside Glucose 89 mg/dl 85 mg/dl 119 mg/dl White Blood Count 8.17 K/uL Red Blood Count 2.84 M/uL Hemoglobin 8.1 g/dL Hematocrit 24.2 % Mean Corpuscular Volume 85.2 fL Mean Corpuscular Hemoglobin 28.5 pg Mean Corpuscular Hemoglobin Concent 33.5 g/dl Platelet Count 194 K/uL Mean Platelet Volume 10.6 fL Neutrophils (%) (Auto) 85.1 % Lymphocytes (%) (Auto) 8.4 % Monocytes (%) (Auto) 3.7 % Eosinophils (%) (Auto) 2.1 % Basophils (%) (Auto) 0.1 % Neutrophils # (Auto) 6.95 K/uL Lymphocytes # (Auto) 0.69 K/uL Monocytes # (Auto) 0.30 K/uL Eosinophils # (Auto) 0.17 K/uL Basophils # (Auto) 0.01 K/uL RDW Standard Deviation 53.4 fL RDW Coefficient of Variation 16.9 % Immature Granulocyte % (Auto) 0.6 % Immature Granulocyte # (Auto) 0.05 K/uL Dohle Bodies 1+ Poikilocytosis PRESENT Sodium Level 141 mmol/L Potassium Level 3.2 mmol/L Chloride Level 108 mmol/L Carbon Dioxide Level 27 mmol/L Anion Gap 6.0 mmol/L Blood Urea Nitrogen 18 mg/dl Creatinine 0.67 mg/dl Est Creatinine Clear Calc Drug Dose 79.4 ml/min Estimated GFR () 103.2 Estimated GFR (Non- 89.1 BUN/Creatinine Ratio 27.1 Random Glucose 100 mg/dl Calcium Level 7.8 mg/dl Phosphorus Level 2.1 mg/dl Magnesium Level 2.2 mg/dl Total Bilirubin 0.5 mg/dl Aspartate Amino Transf (AST/SGOT) 7 U/L Alanine Aminotransferase (ALT/SGPT) 9 U/L Alkaline Phosphatase 62 U/L Total Protein 5.3 gm/dl Albumin 1.9 gm/dl Globulin 3.4 gm/dl Albumin/Globulin Ratio 0.6 Test 08/02/16 12:03 Bedside Glucose 99 mg/dl Assessment and Plan (1) Septic shock Assessment & Plan: continue current abx, could change to ertapenem for ease of use as this is once daily. will maintain IV therapy, blood cultures negative so far, if remain negative ok for picc. will need min 2 weeks therapy. follow temps , afebrile overnight. (2) Peritonitis (3) Perforated viscus
[2016-08-02] MEDS ORDERED: NURSING VERBAL MED ORDER ONE (15:15)
--- NOTE | 2016-08-02 19:07 | Progress Note ---
Medicine Progress Note Date & Time of Visit: August 02, 2016 at 19:03. Subjective patient seen resting in bed, comfortable states nausea has improved has some mild abdominal discomfort when moving denies chest pain, dyspnea, palpitations, dizziness no fever/chills no other symptoms Objective Last 8 Hrs Date Time Temp Pulse Resp B/P Pulse Ox O2 Delivery O2 Flow Rate FiO2 08/02/16 16:23 36.4 89 17 104/64 94 Nasal Cannula 2.0 08/02/16 14:26 84 20 98 Nasal Cannula 3.0 08/02/16 14:05 36.6 85 16 105/68 97 Nasal Cannula 3.0 08/02/16 12:00 36.8 77 20 115/57 94 Nasal Cannula 3.0 08/02/16 12:00 Nasal Cannula 3.0 Physical Exam: General- oriented x 3, not in distress, speaks in sentences with no effort Eyes- anicteric Neck- supple, no JVD Lungs- clear breath sounds bilaterally, no rales/wheezes Heart- normal rate, regular rhythm; no murmurs Abdomen- wound vac in place, non distended, soft, nontender, good bowel sounds Extremities- no pretibial edema, no calf tenderness Neuro- alert, oriented x 3; no gross focal deficits Skin- warm & dry Laboratory Results: Last 24 Hours Test 08/01/16 23:15 08/02/16 05:36 08/02/16 06:29 08/02/16 12:03 Bedside Glucose 85 mg/dl 119 mg/dl 99 mg/dl White Blood Count 8.17 K/uL Red Blood Count 2.84 M/uL Hemoglobin 8.1 g/dL Hematocrit 24.2 % Mean Corpuscular Volume 85.2 fL Mean Corpuscular Hemoglobin 28.5 pg Mean Corpuscular Hemoglobin Concent 33.5 g/dl Platelet Count 194 K/uL Mean Platelet Volume 10.6 fL Neutrophils (%) (Auto) 85.1 % Lymphocytes (%) (Auto) 8.4 % Monocytes (%) (Auto) 3.7 % Eosinophils (%) (Auto) 2.1 % Basophils (%) (Auto) 0.1 % Neutrophils # (Auto) 6.95 K/uL Lymphocytes # (Auto) 0.69 K/uL Monocytes # (Auto) 0.30 K/uL Eosinophils # (Auto) 0.17 K/uL Basophils # (Auto) 0.01 K/uL RDW Standard Deviation 53.4 fL RDW Coefficient of Variation 16.9 % Immature Granulocyte % (Auto) 0.6 % Immature Granulocyte # (Auto) 0.05 K/uL Dohle Bodies 1+ Poikilocytosis PRESENT Sodium Level 141 mmol/L Potassium Level 3.2 mmol/L Chloride Level 108 mmol/L Carbon Dioxide Level 27 mmol/L Anion Gap 6.0 mmol/L Blood Urea Nitrogen 18 mg/dl Creatinine 0.67 mg/dl Est Creatinine Clear Calc Drug Dose 79.4 ml/min Estimated GFR () 103.2 Estimated GFR (Non- 89.1 BUN/Creatinine Ratio 27.1 Random Glucose 100 mg/dl Calcium Level 7.8 mg/dl Phosphorus Level 2.1 mg/dl Magnesium Level 2.2 mg/dl Total Bilirubin 0.5 mg/dl Aspartate Amino Transf (AST/SGOT) 7 U/L Alanine Aminotransferase (ALT/SGPT) 9 U/L Alkaline Phosphatase 62 U/L Total Protein 5.3 gm/dl Albumin 1.9 gm/dl Globulin 3.4 gm/dl Albumin/Globulin Ratio 0.6 Test 08/02/16 17:19 08/02/16 19:00 Bedside Glucose 80 mg/dl Assessment & Plan 71 year old female with history of DM, HTN, COPD SEPTIC SHOCK SECONDARY TO COLONIC PERFORATION, resolved S/P Emergent Exploratory Laparotomy, Bowel Resection, Creation of Colostomy, Left Salpingo-oophorectomy by Dr Powers 07/30/16 -- off mechanical ventilation off Levophed -- Abdominal Fluid: (+) E coli, moderate yeast -- continue IV Invanz, Caspofungin repeat blood cultures pending -- D5 NSS while NPO -- repeat K and Ph tonight replace if necessary ANEMIA possible acute blood loss from colon perforation, post op state -- Hg improved to 8 monitor ACUTE RENAL FAILURE ON CKD STAGE III - RESOLVED RECENT HX OF UTI/BACTEREMIA Was discharged from hospital on 07/21/16 on IV Invanz and PO Amoxicillin for E coli and Enterococcus. 1/2 bottles grew E coli/PCN sensitive enterococcus -Was supposed to received IV Invanz via PICC line and PO amoxicillin for 14 days. PICC line was removed by Camp Manager and central line placed -- continue IV Invanz, Caspofungin HTN -Diamox and lisinopril on hold. - BP on the low side IV fluids restarted DM - hgb a1c 5.4 04/2016 -Holding oral agents and utilize SSI while hospitalized -ACHS -blood sugar COPD -No acute issue -stable on home inhalers -Nebs as needed HYPOTHYROIDISM -IV levothyroxine DVT PROPHYLAXIS Lovenox GI PROPHYLAXIS PPI - IV DISPOSITION pending PT OT je Thank you for this consultation. We will follow the patient with you during their hospital stay. You can reach a member of the [facility] Hospitalist Team 16/10 via pager @ . Current Inpatient Medications: Current Inpatient Medications Medications (Trade) Dose Ordered Sig/Kwabena Route Start Time Stop Time Status Last Admin Dose Admin Al Hydroxide/Mg Hydroxide (Maalox Susp) 30 ml QID NG 07/30/16 17:00 08/29/16 16:59 08/02/16 17:16 30 ML Chlorhexidine Gluconate (Peridex Oral Soln) 15 ml BID MT 07/30/16 21:00 08/29/16 20:59 08/02/16 08:16 15 ML Glucose (Glucose 40% Gel) 15-30 GRAMS 15 GRAMS... UD PRN PO 07/30/16 14:45 08/29/16 14:44 Glucose (Glucose Chew Tab) 4-8 Tablets 4 Tabl... UD PRN PO 07/30/16 14:45 08/29/16 14:44 Dextrose (Dextrose 50% 50ML Syringe) 25-50ML OF 50% DW IV FOR... UD PRN IV 07/30/16 14:45 08/29/16 14:44 Glucagon 1 mg 1 mg UD PRN SQ 07/30/16 14:45 08/29/16 14:44 Levothyroxine Sodium/Syringe (Synthroid Inj/ Syringe) 1.875 ml @ 2 mls/min DAILY@09 IV 07/31/16 09:00 08/30/16 08:59 08/02/16 09:00 2 MLS/MIN Insulin Aspart SLIDING SCALE Q6H SC 07/31/16 00:00 08/30/16 00:00 Caspofungin/ Sodium Chloride (Cancidas Inj/ Nss 250ml) 260 ml @ 250 mls/hr DAILY IV 08/01/16 09:00 08/31/16 08:59 08/02/16 08:16 250 MLS/HR Enoxaparin Sodium (Lovenox Inj) 40 mg QAM SQ 08/01/16 09:00 08/31/16 08:59 08/02/16 08:17 40 MG Albuterol/ Ipratropium (Duoneb) 3 ml Q6R INH 07/31/16 15:00 08/30/16 14:59 08/02/16 14:22 3 ML Enteral Nutritional Formula 1000 ml 1,000 ml UD PO 08/01/16 07:15 08/31/16 07:14 Future Hold 08/01/16 10:18 1,000 ML Acetaminophen/ Empty Bag (Ofirmev Iv/ Empty Iv Bag 100ml) 65 ml @ 260 mls/hr Q6H PRN IV 08/01/16 09:15 08/31/16 09:14 08/02/16 08:16 260 MLS/HR Hydromorphone HCl 0.5 mg 0.5 mg Q4H PRN IV 08/01/16 09:15 08/15/16 09:14 08/02/16 04:21 0.5 MG Imipenem/ Cilastatin Sodium/ Dextrose (Primaxin Iv/D5 100ml) 110 ml @ 100 mls/hr Q6 IV 08/01/16 11:00 08/11/16 10:59 08/02/16 17:17 100 MLS/HR Metoclopramide HCl 10 mg 10 mg Q6H PRN IV 08/02/16 10:00 09/01/16 09:59 08/02/16 12:38 10 MG Famotidine/ Dextrose (Pepcid IV Inj/ D5 100ml) 102 ml @ 204 mls/hr Q12H IV 08/02/16 22:00 09/01/16 21:59
[2016-08-02 19:52] LABS: BUN/CREATININE RATIO 30.5 (10-20); CALCIUM 7.5 mg/dl (8.5-10.1); CREATININE 0.65 mg/dl (0.60-1.20); PHOSPHORUS 2.6 mg/dl (2.5-4.9); POTASSIUM 3.4 mmol/L (3.5-5.1)
[2016-08-02] MEDS: D5W AND NSS 1,000 ML IV SCH (21:07)
[2016-08-02] MEDS: FAMOTIDINE IV INJ 20 MG in DEXTROSE 5% 100ML 100 ML IV SCH (21:07)
[2016-08-03] VITALS (7 sets, daily range): BP systolic 100–111; BP diastolic 55–64; PULSE 84–92; TEMP 36.7–36.9; O2SAT 92–95
[2016-08-03] MEDS: IMIPENEM/CILASTATIN IV 500 MG in DEXTROSE 5% 100ML 100 ML IV SCH ×4 (00:20→18:27)
[2016-08-03] MEDS: POTASSIUM CHLR 10 MEQ / WTR 10 MEQ in PREMIXED WATER 100 ML IV SCH ×2 (00:20→01:31)
[2016-08-03] MEDS: ALBUT/IPRATROP 3MG/0.5MG NEB 3 ML VIAL INH SCH ×4 (02:07→19:28)
[2016-08-03] MEDS: D5W AND NSS 1,000 ML IV SCH ×2 (05:49→15:57)
[2016-08-03 05:50] LABS: HEMATOCRIT 22.7 % (37-47); MEAN CELL VOLUME 86.6 fL (80-100); MEAN CORPUSCULAR HEMOGLOBIN 28.6 pg (25-34); MEAN PLATELET VOLUME 10.5 fL (7.4-10.4); PLATELET COUNT 189 K/uL (130-400); RED BLOOD COUNT 2.62 M/uL (4.2-5.4); WHITE BLOOD COUNT 5.46 K/uL (4.8-10.8)
[2016-08-03] MEDS: INSULIN ASPART 100 UNITS/ML 3 ML PEN SC SCH ×4 (05:51→18:00)
[2016-08-03 06:18] LABS: BUN/CREATININE RATIO 32.5 (10-20); CREATININE 0.64 mg/dl (0.60-1.20); MAGNESIUM 2.1 mg/dl (1.8-2.4); PHOSPHORUS 2.5 mg/dl (2.5-4.9); POTASSIUM 3.7 mmol/L (3.5-5.1)
[2016-08-03 06:27] LABS: CALCIUM 7.6 mg/dl (8.5-10.1)
--- NOTE | 2016-08-03 07:04 | Surgery Progress Note ---
Surgery Progress Note Date of Service August 03, 2016. Subjective Post OP Day: 4 + bowel movement (ostomy with small amount of liquid stool), + pain controlled, No nausea, No vomiting Objective Vital Signs: Date Time Temp Pulse Resp B/P Pulse Ox O2 Delivery O2 Flow Rate FiO2 08/03/16 02:07 87 20 92 Room Air 08/03/16 00:30 Room Air 08/02/16 23:36 36.8 84 18 101/55 91 Room Air 08/02/16 19:33 91 20 92 Room Air 08/02/16 16:55 95 Room Air 08/02/16 16:23 36.4 89 17 104/64 94 Nasal Cannula 2.0 08/02/16 14:26 84 20 98 Nasal Cannula 3.0 08/02/16 14:05 36.6 85 16 105/68 97 Nasal Cannula 3.0 08/02/16 12:00 36.8 77 20 115/57 94 Nasal Cannula 3.0 08/02/16 12:00 Nasal Cannula 3.0 08/02/16 10:00 77 23 121/62 96 Nasal Cannula 3.0 08/02/16 08:00 36.4 81 17 126/63 95 Nasal Cannula 3.0 08/02/16 08:00 Nasal Cannula 2.0 08/02/16 07:35 84 20 92 Nasal Cannula 3.0 Physical Exam: MARIBEL drainage (MARIBEL #1: 115 cc yesterday, 40 cc las shift; MARIBEL #2; 220 cc yesterday, 110 cc last shift; serous), nasogastric drainage (450 cc last shift), urine output (good) Abdomen: non distended, soft, + abnormal bowel sounds (Some present), + pertinent finding (ileostomy pink) Laboratory Results: Results Past 24 Hours Test 08/02/16 12:03 08/02/16 17:19 08/02/16 19:26 08/03/16 00:03 Range/Units Bedside Glucose 99 80 94 70-90 mg/dl Sodium Level 143 136-145 mmol/L Potassium Level 3.4 3.5-5.1 mmol/L Chloride Level 110 98-107 mmol/L Carbon Dioxide Level 26 21-32 mmol/L Anion Gap 7.0 3-11 mmol/L Blood Urea Nitrogen 20 7-18 mg/dl Creatinine 0.65 0.60-1.20 mg/dl Est Creatinine Clear Calc Drug Dose 81.8 ml/min Estimated GFR () 104.3 Estimated GFR (Non- 90.0 BUN/Creatinine Ratio 30.5 10-20 Random Glucose 84 70-99 mg/dl Calcium Level 7.5 8.5-10.1 mg/dl Phosphorus Level 2.6 2.5-4.9 mg/dl Test 08/03/16 05:15 08/03/16 05:51 Range/Units White Blood Count 5.46 4.8-10.8 K/uL Red Blood Count 2.62 4.2-5.4 M/uL Hemoglobin 7.5 12.0-16.0 g/dL Hematocrit 22.7 37-47 % Mean Corpuscular Volume 86.6 80-100 fL Mean Corpuscular Hemoglobin 28.6 25-34 pg Mean Corpuscular Hemoglobin Concent 33.0 32-36 g/dl RDW Standard Deviation 53.4 36.4-46.3 fL RDW Coefficient of Variation 16.8 11.5-14.5 % Platelet Count 189 130-400 K/uL Mean Platelet Volume 10.5 7.4-10.4 fL Sodium Level 145 136-145 mmol/L Potassium Level 3.7 3.5-5.1 mmol/L Chloride Level 110 98-107 mmol/L Carbon Dioxide Level 27 21-32 mmol/L Anion Gap 8.0 3-11 mmol/L Blood Urea Nitrogen 21 7-18 mg/dl Creatinine 0.64 0.60-1.20 mg/dl Est Creatinine Clear Calc Drug Dose 83.1 ml/min Estimated GFR () 104.8 Estimated GFR (Non- 90.4 BUN/Creatinine Ratio 32.5 10-20 Random Glucose 92 70-99 mg/dl Calcium Level 7.6 8.5-10.1 mg/dl Phosphorus Level 2.5 2.5-4.9 mg/dl Magnesium Level 2.1 1.8-2.4 mg/dl Bedside Glucose 100 70-90 mg/dl Assessment & Plan S/P right colectomy with ileostomy formation Pathology showed carcinoma, margins clear, 1/12 lymph nodes positive Stable hemodynamically Urine output good, BUN/creat good Small amount of ostomy output Peristalsis returning slowly but would continue NGT for now Appreciate wound care help, wound vac in place OOB today, continue PT
[2016-08-03] MEDS: CHLORHEXIDINE GLUCONATE 0.12% 480 ML MT SCH ×2 (08:48→21:20)
[2016-08-03] MEDS: LEVOTHYROXINE SODIUM INJ 37.5 MCG in SYRINGE 0 ML IV SCH (09:00)
[2016-08-03] MEDS: CASPOFUNGIN INJ 50 MG in SODIUM CHLORIDE 0.9% 250ML 250 ML IV SCH (09:00)
[2016-08-03] MEDS: ALUMINUM/MAGNESIUM SUSP 30 ML UDC NG SCH ×4 (09:00→21:20)
[2016-08-03] MEDS ORDERED: HYDROmorphone INJ 1 MG/ML SYR ONE (09:10)
[2016-08-03] MEDS: HYDROmorphone INJ 0.5 MG/0.5 ML SYR IV PRN (09:13)
[2016-08-03] MEDS: FAMOTIDINE IV INJ 20 MG in DEXTROSE 5% 100ML 100 ML IV SCH ×2 (09:26→21:20)
[2016-08-03] MEDS: ENOXAPARIN 40 MG/0.4 ML SYR SQ SCH (09:32)
[2016-08-03] MEDS: ACETAMINOPHEN IV 650 MG in EMPTY BAG 0 ML IV PRN (13:45)
--- NOTE | 2016-08-03 15:14 | Progress Note ---
Subjective Date of Service: August 03, 2016. Subjective Pt evaluation today including: conversation w/ patient, physical exam, chart review, lab review transferred from ICU. feeling well. pain controlled. ngt remians, npo, toelrating ice chips. afebrile. wbc improving. blood cultures and cath tip cultures negative. tolerating abx. all remaining ros reviewed and are negative Problem List Medical Problems: (1) Closed head injury Status: Acute (2) Dehydration Status: Acute (3) Fall Status: Acute (4) Hypothermia Status: Acute (5) Perforated viscus Status: Acute (6) Perforation of cecum Status: Acute (7) Pressure ulcer Status: Acute (8) Rhabdomyolysis Status: Acute (9) Septic shock Status: Acute (10) UTI (urinary tract infection) Status: Acute Objective Vital Signs Date Time Temp Pulse Resp B/P Pulse Ox O2 Delivery O2 Flow Rate FiO2 08/03/16 14:18 87 18 93 Room Air 08/03/16 08:10 Room Air 08/03/16 07:54 92 18 93 Room Air 08/03/16 07:00 36.7 84 14 104/55 92 Room Air 08/03/16 02:07 87 20 92 Room Air 08/03/16 00:30 Room Air 08/02/16 23:36 36.8 84 18 101/55 91 Room Air 08/02/16 19:33 91 20 92 Room Air 08/02/16 16:55 95 Room Air 08/02/16 16:23 36.4 89 17 104/64 94 Nasal Cannula 2.0 Physical Exam General Appearance: WD/WN, no apparent distress Eyes: normal inspection, EOMI Neck: supple Respiratory/Chest: lungs clear, normal breath sounds, no respiratory distress Cardiovascular: regular rate, rhythm, no edema Abdomen: soft Extremities: non-tender, normal inspection, no pedal edema Neurologic/Psychiatric: alert, oriented x 3 Skin: normal color Laboratory Results Item Value Date Time Catheter Tip Culture - Final Complete 08/01/16 1330 Catheter Tip Central Venous Pressure Line NO GROWTH Blood Culture - Preliminary Resulted 08/01/16 1007 Blood NO GROWTH TO DATE. Blood Culture - Preliminary Resulted 08/01/16 0957 Blood NO GROWTH TO DATE. Blood Culture - Preliminary Resulted 07/31/16 0842 Blood NO GROWTH TO DATE. Gram Stain - Final Resulted 07/30/16 0000 Aspirate - Other Abdomen Blood Culture - Preliminary Resulted 07/30/16 0345 Blood NO GROWTH TO DATE. Last 24 Hours Test 08/02/16 17:19 08/02/16 19:26 08/03/16 00:03 08/03/16 05:15 Bedside Glucose 80 mg/dl 94 mg/dl Sodium Level 143 mmol/L 145 mmol/L Potassium Level 3.4 mmol/L 3.7 mmol/L Chloride Level 110 mmol/L 110 mmol/L Carbon Dioxide Level 26 mmol/L 27 mmol/L Anion Gap 7.0 mmol/L 8.0 mmol/L Blood Urea Nitrogen 20 mg/dl 21 mg/dl Creatinine 0.65 mg/dl 0.64 mg/dl Est Creatinine Clear Calc Drug Dose 81.8 ml/min 83.1 ml/min Estimated GFR () 104.3 104.8 Estimated GFR (Non- 90.0 90.4 BUN/Creatinine Ratio 30.5 32.5 Random Glucose 84 mg/dl 92 mg/dl Calcium Level 7.5 mg/dl 7.6 mg/dl Phosphorus Level 2.6 mg/dl 2.5 mg/dl White Blood Count 5.46 K/uL Red Blood Count 2.62 M/uL Hemoglobin 7.5 g/dL Hematocrit 22.7 % Mean Corpuscular Volume 86.6 fL Mean Corpuscular Hemoglobin 28.6 pg Mean Corpuscular Hemoglobin Concent 33.0 g/dl RDW Standard Deviation 53.4 fL RDW Coefficient of Variation 16.8 % Platelet Count 189 K/uL Mean Platelet Volume 10.5 fL Magnesium Level 2.1 mg/dl Test 08/03/16 05:51 08/03/16 12:18 Bedside Glucose 100 mg/dl 91 mg/dl Assessment and Plan (1) Septic shock Assessment & Plan: continue current abx, could change to ertapenem for ease of use as this is once daily. will maintain IV therapy, blood cultures negative so far, if remain negative ok for picc. will need min 2 weeks therapy. follow temps , afebrile overnight. (2) Peritonitis (3) Perforated viscus
--- NOTE | 2016-08-03 19:49 | Progress Note ---
Medicine Progress Note Date & Time of Visit: August 03, 2016 at 19:45. Subjective seen resting in bed in good spirits no nausea less abdominal pain no chest pain, dyspnea, dizziness no other symptoms Objective Last 8 Hrs Date Time Temp Pulse Resp B/P Pulse Ox O2 Delivery O2 Flow Rate FiO2 08/03/16 19:28 86 18 95 Room Air 08/03/16 15:18 36.8 88 16 100/62 92 Room Air 08/03/16 14:18 87 18 93 Room Air Physical Exam: General- oriented x 3, not in distress, speaks in sentences with no effort Eyes- anicteric Neck- no JVD Lungs- clear BS bilaterally, no rales/wheezes Heart- normal rate, regular rhythm; no murmurs Abdomen- wound vac in place, non distended, soft, nontender, good bowel sounds Extremities- no pretibial edema, no calf tenderness Neuro- alert, oriented x 3; no gross focal deficits Skin- warm & dry Laboratory Results: Last 24 Hours Test 08/03/16 00:03 08/03/16 05:15 08/03/16 05:51 08/03/16 12:18 Bedside Glucose 94 mg/dl 100 mg/dl 91 mg/dl White Blood Count 5.46 K/uL Red Blood Count 2.62 M/uL Hemoglobin 7.5 g/dL Hematocrit 22.7 % Mean Corpuscular Volume 86.6 fL Mean Corpuscular Hemoglobin 28.6 pg Mean Corpuscular Hemoglobin Concent 33.0 g/dl RDW Standard Deviation 53.4 fL RDW Coefficient of Variation 16.8 % Platelet Count 189 K/uL Mean Platelet Volume 10.5 fL Sodium Level 145 mmol/L Potassium Level 3.7 mmol/L Chloride Level 110 mmol/L Carbon Dioxide Level 27 mmol/L Anion Gap 8.0 mmol/L Blood Urea Nitrogen 21 mg/dl Creatinine 0.64 mg/dl Est Creatinine Clear Calc Drug Dose 83.1 ml/min Estimated GFR () 104.8 Estimated GFR (Non- 90.4 BUN/Creatinine Ratio 32.5 Random Glucose 92 mg/dl Calcium Level 7.6 mg/dl Phosphorus Level 2.5 mg/dl Magnesium Level 2.1 mg/dl Test 08/03/16 18:22 Bedside Glucose 99 mg/dl Assessment & Plan 71 year old female with history of DM, HTN, COPD SEPTIC SHOCK SECONDARY TO COLONIC PERFORATION, resolved S/P Emergent Exploratory Laparotomy, Bowel Resection, Creation of Colostomy, Left Salpingo-oophorectomy by Dr Powers 07/30/16 -- Abdominal Fluid: (+) E coli, moderate yeast -- afebrile, BP stable -- continue IV Invanz, Caspofungin repeat blood cultures negative -- D5 NSS while NPO ANEMIA possible acute blood loss from colon perforation, post op state -- Hg 7.5 monitor ACUTE RENAL FAILURE ON CKD STAGE III - RESOLVED RECENT HX OF UTI/BACTEREMIA Was discharged from hospital on 07/21/16 on IV Invanz and PO Amoxicillin for E coli and Enterococcus. 1/2 bottles grew E coli/PCN sensitive enterococcus -Was supposed to received IV Invanz via PICC line and PO amoxicillin for 14 days. PICC line was removed by Referral And Information Aide and central line placed -- continue IV Invanz, Caspofungin HTN -Diamox and lisinopril on hold. - continue IV fluids for now DM - hgb a1c 5.4 04/2016 -Holding oral agents and utilize SSI while hospitalized -ACHS -blood sugar COPD -No acute issue -stable on home inhalers -Nebs as needed HYPOTHYROIDISM -IV levothyroxine DVT PROPHYLAXIS Lovenox GI PROPHYLAXIS PPI - IV DISPOSITION pending PT OT je Thank you for this consultation. We will follow the patient with you during their hospital stay. You can reach a member of the [facility] Hospitalist Team 16/10 via pager @ . Current Inpatient Medications: Current Inpatient Medications Medications (Trade) Dose Ordered Sig/Kwabena Route Start Time Stop Time Status Last Admin Dose Admin Al Hydroxide/Mg Hydroxide (Maalox Susp) 30 ml QID NG 07/30/16 17:00 08/29/16 16:59 08/03/16 17:47 30 ML Chlorhexidine Gluconate (Peridex Oral Soln) 15 ml BID MT 07/30/16 21:00 08/29/16 20:59 08/03/16 08:48 15 ML Glucose (Glucose 40% Gel) 15-30 GRAMS 15 GRAMS... UD PRN PO 07/30/16 14:45 08/29/16 14:44 Glucose (Glucose Chew Tab) 4-8 Tablets 4 Tabl... UD PRN PO 07/30/16 14:45 08/29/16 14:44 Dextrose (Dextrose 50% 50ML Syringe) 25-50ML OF 50% DW IV FOR... UD PRN IV 07/30/16 14:45 08/29/16 14:44 Glucagon 1 mg 1 mg UD PRN SQ 07/30/16 14:45 08/29/16 14:44 Levothyroxine Sodium/Syringe (Synthroid Inj/ Syringe) 1.875 ml @ 2 mls/min DAILY@09 IV 07/31/16 09:00 08/30/16 08:59 08/03/16 09:00 2 MLS/MIN Insulin Aspart SLIDING SCALE Q6H SC 07/31/16 00:00 08/30/16 00:00 Caspofungin/ Sodium Chloride (Cancidas Inj/ Nss 250ml) 260 ml @ 250 mls/hr DAILY IV 08/01/16 09:00 08/31/16 08:59 08/03/16 09:00 250 MLS/HR Enoxaparin Sodium (Lovenox Inj) 40 mg QAM SQ 08/01/16 09:00 08/31/16 08:59 08/03/16 09:32 40 MG Albuterol/ Ipratropium (Duoneb) 3 ml Q6R INH 07/31/16 15:00 08/30/16 14:59 08/03/16 19:28 3 ML Enteral Nutritional Formula 1000 ml 1,000 ml UD PO 08/01/16 07:15 08/31/16 07:14 Future Hold 08/01/16 10:18 1,000 ML Acetaminophen/ Empty Bag (Ofirmev Iv/ Empty Iv Bag 100ml) 65 ml @ 260 mls/hr Q6H PRN IV 08/01/16 09:15 08/31/16 09:14 08/03/16 13:45 260 MLS/HR Hydromorphone HCl 0.5 mg 0.5 mg Q4H PRN IV 08/01/16 09:15 08/15/16 09:14 08/03/16 09:13 0.5 MG Imipenem/ Cilastatin Sodium/ Dextrose (Primaxin Iv/D5 100ml) 110 ml @ 100 mls/hr Q6 IV 08/01/16 11:00 08/11/16 10:59 08/03/16 18:27 100 MLS/HR Metoclopramide HCl 10 mg 10 mg Q6H PRN IV 08/02/16 10:00 09/01/16 09:59 08/02/16 12:38 10 MG Famotidine 20 mg/ Dextrose 102 ml @ 204 mls/hr Q12H IV 08/02/16 22:00 09/01/16 21:59 08/03/16 09:26 204 MLS/HR Dextrose/Sodium Chloride (D5W And Nss) 1,000 ml @ 60 mls/hr [id number] IV 08/02/16 19:15 08/03/16 15:57 100 MLS/HR
[2016-08-04] MEDS: IMIPENEM/CILASTATIN IV 500 MG in DEXTROSE 5% 100ML 100 ML IV SCH ×5 (00:06→23:56)
[2016-08-04 02:12] VITALS: PULSE 82; O2SAT 94
[2016-08-04] MEDS: ALBUT/IPRATROP 3MG/0.5MG NEB 3 ML VIAL INH SCH ×2 (02:12→07:40)
[2016-08-04] MEDS: D5W AND NSS 1,000 ML IV SCH ×2 (04:48→19:23)
[2016-08-04] MEDS: INSULIN ASPART 100 UNITS/ML 3 ML PEN SC SCH ×5 (05:50→23:42)
[2016-08-04 07:38] LABS: HEMATOCRIT 23.8 % (37-47); MEAN CELL VOLUME 85.6 fL (80-100); MEAN CORPUSCULAR HGB CONC 31.5 g/dl (32-36); MEAN PLATELET VOLUME 10.3 fL (7.4-10.4); PLATELET COUNT 217 K/uL (130-400); RED BLOOD COUNT 2.78 M/uL (4.2-5.4); WHITE BLOOD COUNT 8.44 K/uL (4.8-10.8)
[2016-08-04 07:40] VITALS: PULSE 84; O2SAT 93
--- NOTE | 2016-08-04 07:43 | Surgery Progress Note ---
Surgery Progress Note Date of Service August 04, 2016. Subjective Post OP Day: 5 Objective Vital Signs: Date Time Temp Pulse Resp B/P Pulse Ox O2 Delivery O2 Flow Rate FiO2 08/04/16 02:12 82 16 94 Room Air 08/04/16 00:19 Room Air 08/03/16 23:58 36.9 84 15 111/64 94 Room Air 08/03/16 19:28 86 18 95 Room Air 08/03/16 15:30 Room Air 08/03/16 15:18 36.8 88 16 100/62 92 Room Air 08/03/16 14:18 87 18 93 Room Air 08/03/16 08:10 Room Air 08/03/16 07:54 92 18 93 Room Air Abdomen: normal bowel sounds, non distended, soft, + tenderness (lateral to ileostomy), + pertinent finding (ileostomy healthy appearing, small amount of stool in bag, ) Laboratory Results: Results Past 24 Hours Test 08/03/16 12:18 08/03/16 18:22 08/03/16 23:55 08/04/16 05:49 Range/Units Bedside Glucose 91 99 94 97 70-90 mg/dl Test 08/04/16 06:55 Range/Units Assessment & Plan S/P right colectomy with ileostomy formation Pathology showed carcinoma, margins clear, / lymph nodes positive Stable hemodynamically Urine output good, BUN/creat good Ostomy output increasing Tenderness and pain on right side, check CT scan WBC pending Appreciate wound care help, wound vac in place Continue PT
[2016-08-04 07:46] VITALS: BP 122/70; PULSE 86; TEMP 36.6; O2SAT 95
[2016-08-04] MEDS: ACETAMINOPHEN IV 650 MG in EMPTY BAG 0 ML IV PRN ×2 (08:53→22:29)
[2016-08-04] MEDS: CASPOFUNGIN INJ 50 MG in SODIUM CHLORIDE 0.9% 250ML 250 ML IV SCH (08:56)
[2016-08-04] MEDS: FAMOTIDINE IV INJ 20 MG in DEXTROSE 5% 100ML 100 ML IV SCH ×2 (08:56→22:29)
[2016-08-04] MEDS: CHLORHEXIDINE GLUCONATE 0.12% 480 ML MT SCH ×2 (08:58→22:28)
[2016-08-04] MEDS: ENOXAPARIN 40 MG/0.4 ML SYR SQ SCH (08:59)
[2016-08-04] MEDS: ALUMINUM/MAGNESIUM SUSP 30 ML UDC NG SCH ×4 (09:00→22:38)
[2016-08-04 09:08] LABS: BUN/CREATININE RATIO 34.5 (10-20); CALCIUM 7.5 mg/dl (8.5-10.1); CREATININE 0.5 mg/dl (0.60-1.20); POTASSIUM 3.1 mmol/L (3.5-5.1)
[2016-08-04] MEDS: LEVOTHYROXINE SODIUM INJ 37.5 MCG in SYRINGE 0 ML IV SCH (09:19)
--- NOTE | 2016-08-04 11:32 | DIAGNOSTIC IMAGING REPORT ---
ABDOMEN AND PELVIS CT WITH ORAL CONTRAST CT DOSE: 1410.85 mGy.cm HISTORY: Postoperative pain S/P right colectomy/ileostomy for perforation now with right side TECHNIQUE: Multiaxial CT images of the abdomen and pelvis were performed following the use of oral contrast. COMPARISON STUDY: 07/30/2016 FINDINGS: Interval development of small bilateral pleural effusions. Mild bibasilar atelectatic changes of the right as well as left lower lobe regions. Liver is uniform. Several small gallstones are present within the gallbladder lumen. 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 Mild gastric distention. Nasogastric tube within the distal gastric antral region. Findings of the abdomen interval right alexis mild infiltrative change of the fat in the region of the right lower quadrant most likely postoperative. Very small poorly circumscribed fluid collections in the right upper quadrant inferior and anterior to the right hepatic lobe. A well-defined abscess is not identified at the current time. Kidneys negative for calcification or hydronephrosis. Surgical drains are present within the soft tissue pelvic regions and lower flanks. Findings of components of body wall anasarca. Interval wound dehiscent seen anteriorly. Left-sided ostomy is noted.. Small bowel distention in the left central abdominal region raises the possibility of a postoperative ileus versus early distal small bowel obstruction. Etiology of the obstructive change is not confirmed.. Generalized body wall anasarca. IMPRESSION: 1. Interval right hemicolectomy 2. Expected postoperative changes within the right lower quadrant, with several very small fluid pockets immediately inferior to the right hepatic lobe. These are non drainable collections at this time although should be watched closely. 3. Small bowel distention consistent with postoperative ileus versus developing distal partial small bowel obstructive change. Etiology is uncertain 4. 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 This is a nonacute finding. 5. Body wall anasarca. 6. Bilateral pleural effusions with bibasilar lateral lower lobe atelectatic change. Electronically signed by: Дмитрий Milian M.D. 08/04/2016 11:30 AM Dictated Date/Time: 08/04/2016 11:17 AM
[2016-08-04] MEDS: POTASSIUM CHLR 10 MEQ / WTR 10 MEQ in PREMIXED WATER 100 ML IV SCH ×2 (14:14→15:25)
[2016-08-04] MEDS ORDERED: NURSING VERBAL MED ORDER ONE (14:45)
[2016-08-04 15:52] VITALS: BP 116/73; PULSE 84; TEMP 36.6; O2SAT 93
[2016-08-04] MEDS ORDERED: ALBUT/IPRATROP 3MG/0.5MG NEB 3 ML VIAL INH PRN (19:30)
--- NOTE | 2016-08-04 20:39 | Progress Note ---
Medicine Progress Note Date & Time of Visit: August 04, 2016 at 20:39. Subjective delayed entry date of service as noted above on exam, patient reports she was feeling weak has increased abdominal pain otherwise, no shortness of breath, chest pain, dizziness alert, oriented Objective Last 8 Hrs Date Time Temp Pulse Resp B/P Pulse Ox O2 Delivery O2 Flow Rate FiO2 08/04/16 16:30 Room Air 08/04/16 15:52 36.6 84 16 116/73 93 Room Air Physical Exam: General- oriented x 3, not in distress, speaks in sentences with no effort Eyes- anicteric Neck- no JVD Lungs- clear breath sounds bilaterally Heart- normal rate, regular rhythm; no murmurs Abdomen- wound vac in place, non distended, soft, nontender Extremities- no pretibial edema, no calf tenderness Neuro- alert, oriented x 3; no gross focal deficits Skin- warm & dry Laboratory Results: Last 24 Hours Test 08/03/16 23:55 08/04/16 05:49 08/04/16 06:55 08/04/16 12:03 Bedside Glucose 94 mg/dl 97 mg/dl 85 mg/dl White Blood Count 8.44 K/uL Red Blood Count 2.78 M/uL Hemoglobin 7.5 g/dL Hematocrit 23.8 % Mean Corpuscular Volume 85.6 fL Mean Corpuscular Hemoglobin 27.0 pg Mean Corpuscular Hemoglobin Concent 31.5 g/dl RDW Standard Deviation 53.0 fL RDW Coefficient of Variation 16.7 % Platelet Count 217 K/uL Mean Platelet Volume 10.3 fL Sodium Level 143 mmol/L Potassium Level 3.1 mmol/L Chloride Level 110 mmol/L Carbon Dioxide Level 28 mmol/L Anion Gap 5.0 mmol/L Blood Urea Nitrogen 17 mg/dl Creatinine 0.50 mg/dl Est Creatinine Clear Calc Drug Dose 106.4 ml/min Estimated GFR () 113.7 Estimated GFR (Non- 98.1 BUN/Creatinine Ratio 34.5 Random Glucose 101 mg/dl Calcium Level 7.5 mg/dl Test 08/04/16 18:16 08/04/16 20:25 Bedside Glucose 89 mg/dl Assessment & Plan 71 year old female with history of DM, HTN, COPD SEPTIC SHOCK SECONDARY TO COLONIC PERFORATION, resolved POSSIBLE FUNGEMIA S/P Emergent Exploratory Laparotomy, Bowel Resection, Creation of Colostomy, Left Salpingo-oophorectomy by Dr Powers 07/30/16 -- Abdominal Fluid: (+) E coli, moderate yeast -- afebrile, BP stable -- continue on IV Invanz, Caspofungin repeat blood cultures 1 bottle (+) yeast -- D5 NSS while NPO ANEMIA possible acute blood loss from colon perforation, post op state monitor Hg ACUTE RENAL FAILURE ON CKD STAGE III - RESOLVED RECENT HX OF UTI/BACTEREMIA Was discharged from hospital on 07/21/16 on IV Invanz and PO Amoxicillin for E coli and Enterococcus. 1/2 bottles grew E coli/PCN sensitive enterococcus -Was supposed to received IV Invanz via PICC line and PO amoxicillin for 14 days. PICC line was removed by [employer] and central line placed -- continue IV Invanz, Caspofungin HTN -Diamox and lisinopril on hold. - continue IV fluids for now DM - hgb a1c 5.4 04/2016 -Holding oral agents and utilize SSI while hospitalized -ACHS -blood sugar COPD -No acute issue -stable on home inhalers -Nebs as needed HYPOTHYROIDISM -IV levothyroxine DVT PROPHYLAXIS Lovenox GI PROPHYLAXIS PPI - IV DISPOSITION pending PT OT eval Thank you for this consultation. We will follow the patient with you during their hospital stay. You can reach a member of the [facility] Hospitalist Team 16/10 via pager @ [phone]. Current Inpatient Medications: Current Inpatient Medications Medications (Trade) Dose Ordered Sig/Kwabena Route Start Time Stop Time Status Last Admin Dose Admin Al Hydroxide/Mg Hydroxide (Maalox Susp) 30 ml QID NG 07/30/16 17:00 08/29/16 16:59 08/04/16 19:23 30 ML Chlorhexidine Gluconate (Peridex Oral Soln) 15 ml BID MT 07/30/16 21:00 08/29/16 20:59 08/04/16 08:58 15 ML Glucose (Glucose 40% Gel) 15-30 GRAMS 15 GRAMS... UD PRN PO 07/30/16 14:45 08/29/16 14:44 Glucose (Glucose Chew Tab) 4-8 Tablets 4 Tabl... UD PRN PO 07/30/16 14:45 08/29/16 14:44 Dextrose (Dextrose 50% 50ML Syringe) 25-50ML OF 50% DW IV FOR... UD PRN IV 07/30/16 14:45 08/29/16 14:44 Glucagon 1 mg 1 mg UD PRN SQ 07/30/16 14:45 08/29/16 14:44 Levothyroxine Sodium/Syringe (Synthroid Inj/ Syringe) 1.875 ml @ 2 mls/min DAILY@09 IV 07/31/16 09:00 08/30/16 08:59 08/04/16 09:19 2 MLS/MIN Insulin Aspart SLIDING SCALE Q6H SC 07/31/16 00:00 08/30/16 00:00 Caspofungin/ Sodium Chloride (Cancidas Inj/ Nss 250ml) 260 ml @ 250 mls/hr DAILY IV 08/01/16 09:00 08/31/16 08:59 08/04/16 08:56 250 MLS/HR Enoxaparin Sodium (Lovenox Inj) 40 mg QAM SQ 08/01/16 09:00 08/31/16 08:59 08/04/16 08:59 40 MG Enteral Nutritional Formula 1000 ml 1,000 ml UD PO 08/01/16 07:15 08/31/16 07:14 Future Hold 08/01/16 10:18 1,000 ML Acetaminophen/ Empty Bag (Ofirmev Iv/ Empty Iv Bag 100ml) 65 ml @ 260 mls/hr Q6H PRN IV 08/01/16 09:15 08/31/16 09:14 08/04/16 08:53 260 MLS/HR Hydromorphone HCl 0.5 mg 0.5 mg Q4H PRN IV 08/01/16 09:15 08/15/16 09:14 08/03/16 09:13 0.5 MG Imipenem/ Cilastatin Sodium/ Dextrose (Primaxin Iv/D5 100ml) 110 ml @ 100 mls/hr Q6 IV 08/01/16 11:00 08/11/16 10:59 08/04/16 19:23 100 MLS/HR Metoclopramide HCl 10 mg 10 mg Q6H PRN IV 08/02/16 10:00 09/01/16 09:59 08/02/16 12:38 10 MG Famotidine 20 mg/ Dextrose 102 ml @ 204 mls/hr Q12H IV 08/02/16 22:00 09/01/16 21:59 08/04/16 08:56 204 MLS/HR Dextrose/Sodium Chloride (D5W And Nss) 1,000 ml @ 100 mls/hr Q10H IV 08/02/16 19:15 08/04/16 19:23 100 MLS/HR Albuterol/ Ipratropium (Combivent Respimat Inh) 1 puffs Q6 INH 08/05/16 21:00 09/04/16 20:59 Albuterol/ Ipratropium (Duoneb) 3 ml Q6R PRN INH 08/04/16 19:30 09/03/16 19:29
[2016-08-04 22:08] LABS: POTASSIUM 3.1 mmol/L (3.5-5.1)
--- NOTE | 2016-08-04 22:39 | Progress Note ---
Medicine Progress Note Date & Time of Visit: August 04, 2016 at 22:39. Objective Last 8 Hrs Date Time Temp Pulse Resp B/P Pulse Ox O2 Delivery O2 Flow Rate FiO2 08/04/16 16:30 Room Air 08/04/16 15:52 36.6 84 16 116/73 93 Room Air Physical Exam: General- oriented x 3, not in distress, speaks in sentences with no effort Eyes- anicteric Neck- no JVD Lungs- clear BS bilaterally, no rales/wheezes Heart- normal rate, regular rhythm; no murmurs Abdomen- wound vac in place, non distended, soft, nontender, good bowel sounds Extremities- no pretibial edema, no calf tenderness Neuro- alert, oriented x 3; no gross focal deficits Skin- warm & dry Laboratory Results: Last 24 Hours Test 08/03/16 23:55 08/04/16 05:49 08/04/16 06:55 08/04/16 12:03 Bedside Glucose 94 mg/dl 97 mg/dl 85 mg/dl White Blood Count 8.44 K/uL Red Blood Count 2.78 M/uL Hemoglobin 7.5 g/dL Hematocrit 23.8 % Mean Corpuscular Volume 85.6 fL Mean Corpuscular Hemoglobin 27.0 pg Mean Corpuscular Hemoglobin Concent 31.5 g/dl RDW Standard Deviation 53.0 fL RDW Coefficient of Variation 16.7 % Platelet Count 217 K/uL Mean Platelet Volume 10.3 fL Sodium Level 143 mmol/L Potassium Level 3.1 mmol/L Chloride Level 110 mmol/L Carbon Dioxide Level 28 mmol/L Anion Gap 5.0 mmol/L Blood Urea Nitrogen 17 mg/dl Creatinine 0.50 mg/dl Est Creatinine Clear Calc Drug Dose 106.4 ml/min Estimated GFR () 113.7 Estimated GFR (Non- 98.1 BUN/Creatinine Ratio 34.5 Random Glucose 101 mg/dl Calcium Level 7.5 mg/dl Test 08/04/16 18:16 08/04/16 21:21 Bedside Glucose 89 mg/dl Potassium Level 3.1 mmol/L Magnesium Level 2.0 mg/dl Assessment & Plan 71 year old female with history of DM, HTN, COPD SEPTIC SHOCK SECONDARY TO COLONIC PERFORATION, resolved S/P Emergent Exploratory Laparotomy, Bowel Resection, Creation of Colostomy, Left Salpingo-oophorectomy by Dr Powers 07/30/16 -- Abdominal Fluid: (+) E coli, moderate yeast -- afebrile, BP stable -- continue IV Invanz, Caspofungin repeat blood cultures negative -- D5 NSS while NPO ANEMIA -- likely acute from colon perforation, post op state -- Hg 7.5 monitor ACUTE RENAL FAILURE ON CKD STAGE III - RESOLVED RECENT HX OF UTI/BACTEREMIA Was discharged from hospital on 07/21/16 on IV Invanz and PO Amoxicillin for E coli and Enterococcus. 1/2 bottles grew E coli/PCN sensitive enterococcus -Was supposed to received IV Invanz via PICC line and PO amoxicillin for 14 days. PICC line was removed by [employer] and central line placed -- continue IV Invanz, Caspofungin HTN -Diamox and lisinopril on hold. - continue IV fluids for now DM - hgb a1c 5.4 04/2016 -Holding oral agents and utilize SSI while hospitalized -ACHS -blood sugar COPD -No acute issue -stable on home inhalers -Nebs as needed HYPOTHYROIDISM -IV levothyroxine DVT PROPHYLAXIS Lovenox GI PROPHYLAXIS PPI - IV DISPOSITION pending PT OT je Thank you for this consultation. We will follow the patient with you during their hospital stay. You can reach a member of the [facility] Hospitalist Team 16/10 via pager @ [phone]. Current Inpatient Medications: Current Inpatient Medications Medications (Trade) Dose Ordered Sig/Kwabena Route Start Time Stop Time Status Last Admin Dose Admin Al Hydroxide/Mg Hydroxide (Maalox Susp) 30 ml QID NG 07/30/16 17:00 08/29/16 16:59 08/04/16 19:23 30 ML Chlorhexidine Gluconate (Peridex Oral Soln) 15 ml BID MT 07/30/16 21:00 08/29/16 20:59 08/04/16 22:28 15 ML Glucose (Glucose 40% Gel) 15-30 GRAMS 15 GRAMS... UD PRN PO 07/30/16 14:45 08/29/16 14:44 Glucose (Glucose Chew Tab) 4-8 Tablets 4 Tabl... UD PRN PO 07/30/16 14:45 08/29/16 14:44 Dextrose (Dextrose 50% 50ML Syringe) 25-50ML OF 50% DW IV FOR... UD PRN IV 07/30/16 14:45 08/29/16 14:44 Glucagon 1 mg 1 mg UD PRN SQ 07/30/16 14:45 08/29/16 14:44 Levothyroxine Sodium/Syringe (Synthroid Inj/ Syringe) 1.875 ml @ 2 mls/min DAILY@09 IV 07/31/16 09:00 08/30/16 08:59 08/04/16 09:19 2 MLS/MIN Insulin Aspart SLIDING SCALE Q6H SC 07/31/16 00:00 08/30/16 00:00 Caspofungin/ Sodium Chloride (Cancidas Inj/ Nss 250ml) 260 ml @ 250 mls/hr DAILY IV 08/01/16 09:00 08/31/16 08:59 08/04/16 08:56 250 MLS/HR Enoxaparin Sodium (Lovenox Inj) 40 mg QAM SQ 08/01/16 09:00 08/31/16 08:59 08/04/16 08:59 40 MG Enteral Nutritional Formula 1000 ml 1,000 ml UD PO 08/01/16 07:15 08/31/16 07:14 Future Hold 08/01/16 10:18 1,000 ML Acetaminophen/ Empty Bag (Ofirmev Iv/ Empty Iv Bag 100ml) 65 ml @ 260 mls/hr Q6H PRN IV 08/01/16 09:15 08/31/16 09:14 08/04/16 22:29 260 MLS/HR Hydromorphone HCl 0.5 mg 0.5 mg Q4H PRN IV 08/01/16 09:15 08/15/16 09:14 08/03/16 09:13 0.5 MG Imipenem/ Cilastatin Sodium/ Dextrose (Primaxin Iv/D5 100ml) 110 ml @ 100 mls/hr Q6 IV 08/01/16 11:00 08/11/16 10:59 08/04/16 19:23 100 MLS/HR Metoclopramide HCl 10 mg 10 mg Q6H PRN IV 08/02/16 10:00 09/01/16 09:59 08/02/16 12:38 10 MG Famotidine 20 mg/ Dextrose 102 ml @ 204 mls/hr Q12H IV 08/02/16 22:00 09/01/16 21:59 08/04/16 22:29 204 MLS/HR Dextrose/Sodium Chloride (D5W And Nss) 1,000 ml @ 100 mls/hr Q10H IV 08/02/16 19:15 08/04/16 19:23 100 MLS/HR Albuterol/ Ipratropium (Combivent Respimat Inh) 1 puffs Q6 INH 08/05/16 21:00 09/04/16 20:59 Albuterol/ Ipratropium (Duoneb) 3 ml Q6R PRN INH 08/04/16 19:30 09/03/16 19:29
[2016-08-04 23:09] VITALS: BP 116/71; PULSE 89; TEMP 36.7; O2SAT 93
[2016-08-05] MEDS: POTASSIUM CHLR 10 MEQ / WTR 10 MEQ in PREMIXED WATER 100 ML IV SCH ×4 (01:11→04:35)
[2016-08-05] MEDS: D5W AND NSS 1,000 ML IV SCH ×3 (04:38→17:15)
[2016-08-05] MEDS: IMIPENEM/CILASTATIN IV 500 MG in DEXTROSE 5% 100ML 100 ML IV SCH ×4 (05:57→23:53)
[2016-08-05] MEDS: INSULIN ASPART 100 UNITS/ML 3 ML PEN SC SCH ×4 (06:00→20:37)
[2016-08-05 06:34] LABS: HEMATOCRIT 25.4 % (37-47); MEAN CELL VOLUME 86.1 fL (80-100); MEAN CORPUSCULAR HEMOGLOBIN 27.5 pg (25-34); MEAN CORPUSCULAR HGB CONC 31.9 g/dl (32-36); MEAN PLATELET VOLUME 10.8 fL (7.4-10.4); PLATELET COUNT 255 K/uL (130-400); RED BLOOD COUNT 2.95 M/uL (4.2-5.4); WHITE BLOOD COUNT 13.09 K/uL (4.8-10.8)
[2016-08-05 07:04] LABS: BUN/CREATININE RATIO 27.6 (10-20); CALCIUM 6.9 mg/dl (8.5-10.1); CREATININE 0.51 mg/dl (0.60-1.20); MAGNESIUM 2.1 mg/dl (1.8-2.4); PHOSPHORUS 1.7 mg/dl (2.5-4.9); POTASSIUM 3.9 mmol/L (3.5-5.1)
[2016-08-05 07:09] VITALS: BP 107/67; PULSE 85; TEMP 36.4; O2SAT 95
[2016-08-05] MEDS: ALUMINUM/MAGNESIUM SUSP 30 ML UDC NG SCH ×2 (08:58→13:44)
[2016-08-05] MEDS: CHLORHEXIDINE GLUCONATE 0.12% 480 ML MT SCH ×2 (08:58→20:35)
[2016-08-05] MEDS: ENOXAPARIN 40 MG/0.4 ML SYR SQ SCH (08:59)
[2016-08-05] MEDS: CASPOFUNGIN INJ 50 MG in SODIUM CHLORIDE 0.9% 250ML 250 ML IV SCH (09:12)
[2016-08-05] MEDS: LEVOTHYROXINE SODIUM INJ 37.5 MCG in SYRINGE 0 ML IV SCH (09:13)
--- NOTE | 2016-08-05 10:54 | Surgery Progress Note ---
Surgery Progress Note Date of Service August 05, 2016. Subjective feeling much better this am...pain and nausea much better. stoma functioning. Objective Vital Signs: Date Time Temp Pulse Resp B/P Pulse Ox O2 Delivery O2 Flow Rate FiO2 08/05/16 07:09 36.4 85 16 107/67 95 Room Air 08/04/16 23:52 Room Air 08/04/16 23:09 36.7 89 16 116/71 93 Room Air 08/04/16 16:30 Room Air 08/04/16 15:52 36.6 84 16 116/73 93 Room Air Physical Exam: MARIBEL drainage (elsa/serous), nasogastric drainage (NG tube with scant ouptut mostly saliva) General Appearance: no apparent distress Abdomen: non distended, soft, + pertinent finding (wound looks good. vac in place) Incision(s): clean, dry Laboratory Results: Results Past 24 Hours Test 08/04/16 12:03 08/04/16 18:16 08/04/16 21:21 08/04/16 23:41 Range/Units Bedside Glucose 85 89 103 70-90 mg/dl Potassium Level 3.1 3.5-5.1 mmol/L Magnesium Level 2.0 1.8-2.4 mg/dl Test 08/05/16 06:00 08/05/16 06:01 08/05/16 08:10 Range/Units White Blood Count 13.09 4.8-10.8 K/uL Red Blood Count 2.95 4.2-5.4 M/uL Hemoglobin 8.1 12.0-16.0 g/dL Hematocrit 25.4 37-47 % Mean Corpuscular Volume 86.1 80-100 fL Mean Corpuscular Hemoglobin 27.5 25-34 pg Mean Corpuscular Hemoglobin Concent 31.9 32-36 g/dl RDW Standard Deviation 53.9 36.4-46.3 fL RDW Coefficient of Variation 16.7 11.5-14.5 % Platelet Count 255 130-400 K/uL Mean Platelet Volume 10.8 7.4-10.4 fL Sodium Level 141 136-145 mmol/L Potassium Level 3.9 3.5-5.1 mmol/L Chloride Level 108 98-107 mmol/L Carbon Dioxide Level 28 21-32 mmol/L Anion Gap 5.0 3-11 mmol/L Blood Urea Nitrogen 14 7-18 mg/dl Creatinine 0.51 0.60-1.20 mg/dl Est Creatinine Clear Calc Drug Dose 104.3 ml/min Estimated GFR () 112.9 Estimated GFR (Non- 97.4 BUN/Creatinine Ratio 27.6 10-20 Random Glucose 95 70-99 mg/dl Calcium Level 6.9 8.5-10.1 mg/dl Phosphorus Level 1.7 2.5-4.9 mg/dl Magnesium Level 2.1 1.8-2.4 mg/dl Chemistry Specimen Hemolysis Bedside Glucose 101 101 70-90 mg/dl Assessment & Plan 08/05/16 clinically doing much better stoma function. low ngt output. will pull ngt and start clears wbc up to 13,000...? etiology. ID on board. will d/c roche--? source. antibiotics per ID increase activity/PT/OT
[2016-08-05] MEDS: FAMOTIDINE IV INJ 20 MG in DEXTROSE 5% 100ML 100 ML IV SCH ×2 (11:16→21:52)
[2016-08-05] MEDS: ACETAMINOPHEN IV 650 MG in EMPTY BAG 0 ML IV PRN (13:43)
[2016-08-05] MEDS ORDERED: NURSING VERBAL MED ORDER ONE (13:45)
[2016-08-05 15:10] VITALS: BP 127/78; PULSE 84; TEMP 36.5; O2SAT 96
[2016-08-05] MEDS: ALUMINUM/MAGNESIUM SUSP 30 ML UDC PO SCH ×2 (17:27→20:37)
--- NOTE | 2016-08-05 19:31 | Progress Note ---
Medicine Progress Note Date & Time of Visit: August 05, 2016 at 19:32. Subjective feels better today tolerating clear liquids denies fever.chills no shortness of breath, chest pain, dizziness no other symptoms Objective Last 8 Hrs Date Time Temp Pulse Resp B/P Pulse Ox O2 Delivery O2 Flow Rate FiO2 08/05/16 17:30 Room Air 08/05/16 15:10 36.5 84 16 127/78 96 Room Air Physical Exam: General- oriented x 3, not in distress, speaks in sentences with no effort Eyes- anicteric Lungs- clear breath sounds no rales/wheeze b/l Heart- normal rate, regular rhythm; no murmurs Abdomen- wound vac in place, non distended, soft, nontender, good bowel sounds Extremities- no pretibial edema, no calf tenderness Neuro- alert, oriented x 3; no gross focal deficits Skin- warm & dry Laboratory Results: Last 24 Hours Test 08/04/16 21:21 08/04/16 23:41 08/05/16 06:00 08/05/16 06:01 Potassium Level 3.1 mmol/L 3.9 mmol/L Magnesium Level 2.0 mg/dl 2.1 mg/dl Bedside Glucose 103 mg/dl 101 mg/dl White Blood Count 13.09 K/uL Red Blood Count 2.95 M/uL Hemoglobin 8.1 g/dL Hematocrit 25.4 % Mean Corpuscular Volume 86.1 fL Mean Corpuscular Hemoglobin 27.5 pg Mean Corpuscular Hemoglobin Concent 31.9 g/dl RDW Standard Deviation 53.9 fL RDW Coefficient of Variation 16.7 % Platelet Count 255 K/uL Mean Platelet Volume 10.8 fL Sodium Level 141 mmol/L Chloride Level 108 mmol/L Carbon Dioxide Level 28 mmol/L Anion Gap 5.0 mmol/L Blood Urea Nitrogen 14 mg/dl Creatinine 0.51 mg/dl Est Creatinine Clear Calc Drug Dose 104.3 ml/min Estimated GFR () 112.9 Estimated GFR (Non- 97.4 BUN/Creatinine Ratio 27.6 Random Glucose 95 mg/dl Calcium Level 6.9 mg/dl Phosphorus Level 1.7 mg/dl Chemistry Specimen Hemolysis Test 08/05/16 08:10 08/05/16 11:50 08/05/16 17:04 Bedside Glucose 101 mg/dl 90 mg/dl 103 mg/dl Assessment & Plan 71 year old female with history of DM, HTN, COPD SEPTIC SHOCK SECONDARY TO COLONIC PERFORATION, resolved POSSIBLE FUNGEMIA S/P Emergent Exploratory Laparotomy, Bowel Resection, Creation of Colostomy, Left Salpingo-oophorectomy by Dr Powers 07/30/16 -- Abdominal Fluid: (+) E coli, moderate yeast Blood cultures 08/01/16: (+) yeast -- WBC elevated -- continue IV Invanz, Caspofungin awaiting further ID recommendations -- D5 NSS while NPO ANEMIA possible acute blood loss from colon perforation, post op state -- monitor Hg ACUTE RENAL FAILURE ON CKD STAGE III - RESOLVED RECENT HX OF UTI/BACTEREMIA Was discharged from hospital on 07/21/16 on IV Invanz and PO Amoxicillin for E coli and Enterococcus. 1/2 bottles grew E coli/PCN sensitive enterococcus -Was supposed to received IV Invanz via PICC line and PO amoxicillin for 14 days. PICC line was removed by Order Caller and central line placed -- continue IV Invanz, Caspofungin HTN -Diamox and lisinopril on hold. - continue IV fluids for now DM - hgb a1c 5.4 04/2016 -Holding oral agents and utilize SSI while hospitalized -ACHS -blood sugar COPD -No acute issue -stable on home inhalers -Nebs as needed HYPOTHYROIDISM -IV levothyroxine DVT PROPHYLAXIS Lovenox GI PROPHYLAXIS PPI - IV DISPOSITION pending PT OT je Thank you for this consultation. We will follow the patient with you during their hospital stay. You can reach a member of the [facility] Hospitalist Team 16/10 via pager @ . Current Inpatient Medications: Current Inpatient Medications Medications (Trade) Dose Ordered Sig/Kwabena Route Start Time Stop Time Status Last Admin Dose Admin Chlorhexidine Gluconate (Peridex Oral Soln) 15 ml BID MT 07/30/16 21:00 08/29/16 20:59 08/05/16 08:58 15 ML Glucose (Glucose 40% Gel) 15-30 GRAMS 15 GRAMS... UD PRN PO 07/30/16 14:45 08/29/16 14:44 Glucose (Glucose Chew Tab) 4-8 Tablets 4 Tabl... UD PRN PO 07/30/16 14:45 08/29/16 14:44 Dextrose (Dextrose 50% 50ML Syringe) 25-50ML OF 50% DW IV FOR... UD PRN IV 07/30/16 14:45 08/29/16 14:44 Glucagon 1 mg 1 mg UD PRN SQ 07/30/16 14:45 08/29/16 14:44 Levothyroxine Sodium 37.5 mcg/ Syringe 1.875 ml @ 2 mls/min DAILY@09 IV 07/31/16 09:00 08/30/16 08:59 08/05/16 09:13 2 MLS/MIN Caspofungin/ Sodium Chloride (Cancidas Inj/ Nss 250ml) 260 ml @ 250 mls/hr DAILY IV 08/01/16 09:00 08/31/16 08:59 08/05/16 09:12 250 MLS/HR Enoxaparin Sodium (Lovenox Inj) 40 mg QAM SQ 08/01/16 09:00 08/31/16 08:59 08/05/16 08:59 40 MG Enteral Nutritional Formula 1000 ml 1,000 ml UD PO 08/01/16 07:15 08/31/16 07:14 Future Hold 08/01/16 10:18 1,000 ML Acetaminophen/ Empty Bag (Ofirmev Iv/ Empty Iv Bag 100ml) 65 ml @ 260 mls/hr Q6H PRN IV 08/01/16 09:15 08/31/16 09:14 08/05/16 13:43 260 MLS/HR Hydromorphone HCl 0.5 mg 0.5 mg Q4H PRN IV 08/01/16 09:15 08/15/16 09:14 08/03/16 09:13 0.5 MG Imipenem/ Cilastatin Sodium/ Dextrose (Primaxin Iv/D5 100ml) 110 ml @ 100 mls/hr Q6 IV 08/01/16 11:00 08/11/16 10:59 08/05/16 17:30 100 MLS/HR Metoclopramide HCl 10 mg 10 mg Q6H PRN IV 08/02/16 10:00 09/01/16 09:59 08/02/16 12:38 10 MG Famotidine 20 mg/ Dextrose 102 ml @ 204 mls/hr Q12H IV 08/02/16 22:00 09/01/16 21:59 08/05/16 11:16 204 MLS/HR Dextrose/Sodium Chloride (D5W And Nss) 1,000 ml @ 100 mls/hr Q10H IV 08/02/16 19:15 08/05/16 15:32 100 MLS/HR Albuterol/ Ipratropium (Combivent Respimat Inh) 1 puffs Q6 INH 08/05/16 21:00 09/04/16 20:59 Albuterol/ Ipratropium (Duoneb) 3 ml Q6R PRN INH 08/04/16 19:30 09/03/16 19:29 Insulin Aspart (novoLOG ASPART) SLIDING SCALE ACHS SC 08/05/16 17:15 08/30/16 00:00 Al Hydroxide/Mg Hydroxide (Maalox Susp) 30 ml QID PO 08/05/16 17:00 08/29/16 16:59 08/05/16 17:27 30 ML
[2016-08-05] MEDS: POT PHOSPHATE MONOBASIC W/ SOD TAB PO SCH (20:34)
[2016-08-05] MEDS: IPRATROPIUM BROMIDE/ALBUTEROL respimat INH INH SCH ×2 (20:36→23:53)
[2016-08-05 22:34] VITALS: BP 115/64; PULSE 86; TEMP 36.3; O2SAT 96
[2016-08-06] MEDS: METOCLOPRAMIDE HCL INJ 5 MG/ML 2 ML VIAL IV PRN ×2 (03:12→21:58)
[2016-08-06] MEDS: D5W AND NSS 1,000 ML IV SCH (03:12)
[2016-08-06] MEDS: IMIPENEM/CILASTATIN IV 500 MG in DEXTROSE 5% 100ML 100 ML IV SCH ×4 (03:28→22:00)
[2016-08-06] MEDS: IPRATROPIUM BROMIDE/ALBUTEROL respimat INH INH SCH ×3 (05:45→17:49)
[2016-08-06 06:01] LABS: HEMATOCRIT 27.5 % (37-47); MEAN CELL VOLUME 86.2 fL (80-100); MEAN CORPUSCULAR HGB CONC 31.3 g/dl (32-36); MEAN PLATELET VOLUME 10.4 fL (7.4-10.4); PLATELET COUNT 344 K/uL (130-400); RED BLOOD COUNT 3.19 M/uL (4.2-5.4)
[2016-08-06 06:25] LABS: BASO % 0.2 %; BASO ABS # 0.03 K/uL (0-0.2); COMPLETE YES; EOS % 1.6 %; IG% 2.7 %; LYMPH % 8.1 %; LYMPH ABS # 1.43 K/uL (1.2-3.4); MONO % 4.4 %
[2016-08-06 06:48] LABS: BUN/CREATININE RATIO 23.9 (10-20); CALCIUM 7.1 mg/dl (8.5-10.1); CREATININE 0.52 mg/dl (0.60-1.20); MAGNESIUM 2.1 mg/dl (1.8-2.4); PHOSPHORUS 1.9 mg/dl (2.5-4.9); POTASSIUM 3.1 mmol/L (3.5-5.1)
[2016-08-06 07:58] VITALS: BP 104/64; PULSE 84; TEMP 37; O2SAT 93
[2016-08-06] MEDS: INSULIN ASPART 100 UNITS/ML 3 ML PEN SC SCH ×4 (09:22→21:00)
[2016-08-06] MEDS: LEVOTHYROXINE SODIUM INJ 37.5 MCG in SYRINGE 0 ML IV SCH (09:24)
[2016-08-06] MEDS: CHLORHEXIDINE GLUCONATE 0.12% 480 ML MT SCH ×2 (09:29→21:59)
[2016-08-06] MEDS: POT PHOSPHATE MONOBASIC W/ SOD TAB PO SCH ×3 (09:30→17:00)
[2016-08-06] MEDS: ENOXAPARIN 40 MG/0.4 ML SYR SQ SCH (09:35)
[2016-08-06] MEDS: CASPOFUNGIN INJ 50 MG in SODIUM CHLORIDE 0.9% 250ML 250 ML IV SCH (09:36)
[2016-08-06] MEDS: ALUMINUM/MAGNESIUM SUSP 30 ML UDC PO SCH ×4 (09:36→21:59)
[2016-08-06] MEDS: FAMOTIDINE IV INJ 20 MG in DEXTROSE 5% 100ML 100 ML IV SCH ×2 (10:47→22:00)
[2016-08-06] MEDS ORDERED: VANCOMYCIN CONSULT ACTIVE PRN (10:56)
[2016-08-06] MEDS ORDERED: POTASSIUM CHLORIDE 20 MEQ TABCR PO ONE ×2 (11:00→18:00)
--- NOTE | 2016-08-06 11:00 | Progress Note ---
Medicine Progress Note Date & Time of Visit: August 06, 2016 at 10:56. Subjective had an episode of vomiting previously ingested food last night feels better this morning alert, bright, in good spirits tolerated breakfast well denies abdominal pain feels "winded" when walking, has occasional cough, no sputum denies headache, chest pain, chills, diarrhea, problems with urination no other symptoms Objective Last 8 Hrs Date Time Temp Pulse Resp B/P Pulse Ox O2 Delivery O2 Flow Rate FiO2 08/06/16 07:58 37.0 84 18 104/64 93 Room Air Physical Exam: General- oriented x 3, not in distress, speaks in sentences with no effort Eyes- anicteric Lungs- mild expiratory wheeze bilaterally, no rales Heart- normal rate, regular rhythm; no murmurs Abdomen- wound vac in place, non distended, soft, mild tenderness,hypoactive bowel sounds Extremities- no pretibial edema, no calf tenderness Neuro- alert, oriented x 3; no gross focal deficits Skin- warm & dry Laboratory Results: Last 24 Hours Test 08/05/16 11:50 08/05/16 17:04 08/05/16 20:34 08/06/16 05:10 Bedside Glucose 90 mg/dl 103 mg/dl 99 mg/dl White Blood Count 17.60 K/uL Red Blood Count 3.19 M/uL Hemoglobin 8.6 g/dL Hematocrit 27.5 % Mean Corpuscular Volume 86.2 fL Mean Corpuscular Hemoglobin 27.0 pg Mean Corpuscular Hemoglobin Concent 31.3 g/dl Platelet Count 344 K/uL Mean Platelet Volume 10.4 fL Neutrophils (%) (Auto) 83.0 % Lymphocytes (%) (Auto) 8.1 % Monocytes (%) (Auto) 4.4 % Eosinophils (%) (Auto) 1.6 % Basophils (%) (Auto) 0.2 % Neutrophils # (Auto) 14.61 K/uL Lymphocytes # (Auto) 1.43 K/uL Monocytes # (Auto) 0.78 K/uL Eosinophils # (Auto) 0.28 K/uL Basophils # (Auto) 0.03 K/uL RDW Standard Deviation 52.6 fL RDW Coefficient of Variation 16.7 % Immature Granulocyte % (Auto) 2.7 % Immature Granulocyte # (Auto) 0.47 K/uL Red Blood Cell Morphology Unremarkable Sodium Level 142 mmol/L Potassium Level 3.1 mmol/L Chloride Level 106 mmol/L Carbon Dioxide Level 29 mmol/L Anion Gap 7.0 mmol/L Blood Urea Nitrogen 12 mg/dl Creatinine 0.52 mg/dl Est Creatinine Clear Calc Drug Dose 102.3 ml/min Estimated GFR () 112.2 Estimated GFR (Non- 96.8 BUN/Creatinine Ratio 23.9 Random Glucose 98 mg/dl Calcium Level 7.1 mg/dl Phosphorus Level 1.9 mg/dl Magnesium Level 2.1 mg/dl Test 08/06/16 07:55 Bedside Glucose 104 mg/dl Date/Time Source Procedure Growth Status 08/06/16 10:27 Blood Blood Culture Pending Ordered 08/06/16 10:27 Blood Blood Culture Pending Ordered Assessment & Plan 71 year old female with history of DM, HTN, COPD SEPTIC SHOCK SECONDARY TO COLONIC PERFORATION, resolved POSSIBLE FUNGEMIA S/P Emergent Exploratory Laparotomy, Bowel Resection, Creation of Colostomy, Left Salpingo-oophorectomy by Dr Powers 07/30/16 -- Abdominal Fluid: (+) E coli, moderate yeast repeat Blood cultures 08/01/16: (+) yeast -- WBC increased to 18k, although no fever, clinically appears improving -- will repeat blood cultures obtain urine culture CXR -- add Vancomycin today -- continue IV Imipenem, Caspofungin awaiting further ID recommendations -- D5 NSS ANEMIA possible acute blood loss from colon perforation, post op state -- stable ACUTE RENAL FAILURE ON CKD STAGE III - RESOLVED RECENT HX OF UTI/BACTEREMIA Was discharged from hospital on 07/21/16 on IV Invanz and PO Amoxicillin for E coli and Enterococcus. 1/2 bottles grew E coli/PCN sensitive enterococcus -Was supposed to received IV Invanz via PICC line and PO amoxicillin for 14 days. PICC line was removed by Electoral Officer and central line placed -- continue IV Invanz, Caspofungin HTN -Diamox and lisinopril on hold. - continue IV fluids for now DM - hgb a1c 5.4 04/2016 -Holding oral agents and utilize SSI while hospitalized -ACHS -blood sugar COPD (+) mild wheeze resume Enoro Ellipta on Combivent HYPOTHYROIDISM -IV levothyroxine DVT PROPHYLAXIS Lovenox GI PROPHYLAXIS PPI - IV DISPOSITION pending PT OT eval Thank you for this consultation. We will follow the patient with you during their hospital stay. You can reach a member of the [facility] Hospitalist Team 16/10 via pager @ [phone]. Current Inpatient Medications: Current Inpatient Medications Medications (Trade) Dose Ordered Sig/K[place]ena Route Start Time Stop Time Status Last Admin Dose Admin Chlorhexidine Gluconate (Peridex Oral Soln) 15 ml BID MT 07/30/16 21:00 08/29/16 20:59 08/06/16 09:29 15 ML Glucose (Glucose 40% Gel) 15-30 GRAMS 15 GRAMS... UD PRN PO 07/30/16 14:45 08/29/16 14:44 Glucose (Glucose Chew Tab) 4-8 Tablets 4 Tabl... UD PRN PO 07/30/16 14:45 08/29/16 14:44 Dextrose (Dextrose 50% 50ML Syringe) 25-50ML OF 50% DW IV FOR... UD PRN IV 07/30/16 14:45 08/29/16 14:44 Glucagon 1 mg 1 mg UD PRN SQ 07/30/16 14:45 08/29/16 14:44 Levothyroxine Sodium 37.5 mcg/ Syringe 1.875 ml @ 2 mls/min DAILY@09 IV 07/31/16 09:00 08/30/16 08:59 08/06/16 09:24 2 MLS/MIN Caspofungin/ Sodium Chloride (Cancidas Inj/ Nss 250ml) 260 ml @ 250 mls/hr DAILY IV 08/01/16 09:00 08/31/16 08:59 08/06/16 09:36 250 MLS/HR Enoxaparin Sodium (Lovenox Inj) 40 mg QAM SQ 08/01/16 09:00 08/31/16 08:59 08/06/16 09:35 40 MG Enteral Nutritional Formula 1000 ml 1,000 ml UD PO 08/01/16 07:15 08/31/16 07:14 Future Hold 08/01/16 10:18 1,000 ML Acetaminophen/ Empty Bag (Ofirmev Iv/ Empty Iv Bag 100ml) 65 ml @ 260 mls/hr Q6H PRN IV 08/01/16 09:15 08/31/16 09:14 08/05/16 13:43 260 MLS/HR Hydromorphone HCl (Dilaudid Inj) 0.5 mg Q4H PRN IV 08/01/16 09:15 08/15/16 09:14 08/03/16 09:13 0.5 MG Metoclopramide HCl 10 mg 10 mg Q6H PRN IV 08/02/16 10:00 09/01/16 09:59 08/06/16 03:12 10 MG Famotidine/ Dextrose (Pepcid IV Inj/ D5 100ml) 102 ml @ 204 mls/hr Q12H IV 08/02/16 22:00 09/01/16 21:59 08/06/16 10:47 204 MLS/HR Albuterol/ Ipratropium (Combivent Respimat Inh) 1 puffs Q6 INH 08/05/16 21:00 09/04/16 20:59 08/06/16 05:45 1 PUFFS Albuterol/ Ipratropium (Duoneb) 3 ml Q6R PRN INH 08/04/16 19:30 09/03/16 19:29 Insulin Aspart (novoLOG ASPART) SLIDING SCALE ACHS SC 08/05/16 17:15 08/30/16 00:00 08/06/16 09:22 1 UNITS Al Hydroxide/Mg Hydroxide (Maalox Susp) 30 ml QID PO 08/05/16 17:00 08/29/16 16:59 08/06/16 09:36 30 ML Potassium/ Phosphorus/Sodium 2 tab 2 tab QID PO 08/05/16 21:00 09/04/16 20:59 08/06/16 09:30 2 TAB Imipenem/ Cilastatin Sodium/ Dextrose (Primaxin Iv/D5 100ml) 110 ml @ 100 mls/hr Q6H IV 08/06/16 10:00 08/16/16 09:59 08/06/16 10:47 100 MLS/HR Potassium Chloride 40 meq 40 meq NOW ONCE PO 08/06/16 11:00 08/06/16 11:01 Potassium Chloride/Dextrose/ Sodium Chloride (KCl Inj/D5W And Nss) 1,010 ml @ 75 mls/hr [id number] IV 08/06/16 11:00 09/05/16 10:59 UNV Miscellaneous Information (Pharmacy Consult) 1 ea NOW STAT N/A 08/06/16 10:49 08/06/16 10:50 UNV Non-Formulary Medication (Umeclidinium-Vilanterol (Anoro Ellipta 62.5-25 Mcg/INH)) 1 puffs DAILYBB INH 08/07/16 06:00 09/06/16 05:59 UNV
[2016-08-06] MEDS ORDERED: VANCOMYCIN INJ 2,000 MG in SODIUM CHLORIDE 0.9% 500ML 500 ML IV STA (11:09)
--- NOTE | 2016-08-06 11:33 | Pharmacy Progress Note ---
Pharmacy Abx Initial Consult Date of Service August 06, 2016. Pharmacy Dosing Scope Date of Consult: 08/06/16 Consultation requested by: Dr. Valente Pharmacy is consulted to initiate VANCOMYCIN IV therapy, order appropriate labs and adjust drug dose/frequency. Subjective The patient is a 71 year old female admitted on July 30, 2016 at 13:15 with septic shock secondary to perforated colon - she required emergent exp lap w/ bowel resection and colostomy formation. She was initially treated with broad spectrum ABX therapy (initially Invanz + Ampicillin which was later transitioned to Primaxin monotherapy, along w/ Caspofungin). Invanz therapy was d/c'd in the last 24 hrs. Today the patient is reported to be doing well clinically however her leukocytosis worsened and neutrophil count continues to climb. No fever reported. Primaxin was restarted and Vancomycin is being added. Objective Height (Feet): 5 Height (Inches): 2.00 Weight (Kilograms): 85.800 Vital Signs (Past 12Hrs) Vital Signs Past 12 Hours Date Time Temp Pulse Resp B/P Pulse Ox O2 Delivery O2 Flow Rate FiO2 08/06/16 07:58 37.0 84 18 104/64 93 Room Air 08/05/16 23:35 Room Air Lab Results (24Hrs) Test 08/05/16 20:34 08/06/16 05:10 08/06/16 07:55 Bedside Glucose 99 mg/dl (70-90) 104 mg/dl (70-90) White Blood Count 17.60 K/uL (4.8-10.8) Red Blood Count 3.19 M/uL (4.2-5.4) Hemoglobin 8.6 g/dL (12.0-16.0) Hematocrit 27.5 % (37-47) Mean Corpuscular Volume 86.2 fL (80-100) Mean Corpuscular Hemoglobin 27.0 pg (25-34) Mean Corpuscular Hemoglobin Concent 31.3 g/dl (32-36) Platelet Count 344 K/uL (130-400) Mean Platelet Volume 10.4 fL (7.4-10.4) Neutrophils (%) (Auto) 83.0 % Lymphocytes (%) (Auto) 8.1 % Monocytes (%) (Auto) 4.4 % Eosinophils (%) (Auto) 1.6 % Basophils (%) (Auto) 0.2 % Neutrophils # (Auto) 14.61 K/uL (1.4-6.5) Lymphocytes # (Auto) 1.43 K/uL (1.2-3.4) Monocytes # (Auto) 0.78 K/uL (0.11-0.59) Eosinophils # (Auto) 0.28 K/uL (0-0.5) Basophils # (Auto) 0.03 K/uL (0-0.2) RDW Standard Deviation 52.6 fL (36.4-46.3) RDW Coefficient of Variation 16.7 % (11.5-14.5) Immature Granulocyte % (Auto) 2.7 % Immature Granulocyte # (Auto) 0.47 K/uL (0.00-0.02) Red Blood Cell Morphology Unremarkable Sodium Level 142 mmol/L (136-145) Potassium Level 3.1 mmol/L (3.5-5.1) Chloride Level 106 mmol/L (98-107) Carbon Dioxide Level 29 mmol/L (21-32) Anion Gap 7.0 mmol/L (3-11) Blood Urea Nitrogen 12 mg/dl (7-18) Creatinine 0.52 mg/dl (0.60-1.20) Est Creatinine Clear Calc Drug Dose 102.3 ml/min Estimated GFR () 112.2 Estimated GFR (Non- 96.8 BUN/Creatinine Ratio 23.9 (10-20) Random Glucose 98 mg/dl (70-99) Calcium Level 7.1 mg/dl (8.5-10.1) Phosphorus Level 1.9 mg/dl (2.5-4.9) Magnesium Level 2.1 mg/dl (1.8-2.4) Micro Results Date/Time Source Procedure Growth Status 08/06/16 11:08 Blood Blood Culture Pending Received 08/06/16 11:00 Blood Blood Culture Pending Received 08/01/16 10:07 Blood Blood Culture - Preliminary YEAST Resulted 08/01/16 09:57 Blood Blood Culture - Preliminary Yeast Not Romy Albicans Resulted 07/31/16 08:42 Blood Blood Culture - Final NO GROWTH Complete 07/31/16 08:42 Blood Fungal Smear - Final Resulted 07/31/16 08:42 Blood Fungal Culture - Preliminary NO YEAST OR FUNGUS ISOLATED TO DATE. Resulted 07/30/16 03:55 Blood Blood Culture - Final NO GROWTH Complete 07/30/16 03:45 Blood Blood Culture - Final NO GROWTH Complete 07/30/16 13:00 Nasal MRSA DNA Surveillance Screen - Final Specimen Negative for MRSA by DNA Probe Complete 08/01/16 13:30 Catheter Tip Central Venous Pressure Line Catheter Tip Culture - Final NO GROWTH Complete 07/30/16 00:00 Aspirate - Other Abdomen Gram Stain - Final Complete 07/30/16 00:00 Bacterial Culture - Final Escherichia Coli (ESBL) Yeast Not Romy Albicans Complete Risk Factors for Resistance * Hospitalization for 48 hours or more within the past 90 days * Current hospitalization > 5 days * History of infection with a multidrug-resistant organism: ESBL producing E coli * Antimicrobial use within the last 90 days: had been placed on Invanz + Amoxicillin in June for UTI/bacteremia Assessment & Plan Assessment * 71 year old female who appeared to be responding well to abx + antifungal therapy, until Primaxin was d/c'd for a short time. Labs showing WBC and neutrophils climbing. Currently afebrile. ABX therapy expanded by hospitalist today by adding Vancomycin and resuming Primaxin. She had been on Invanz + Ampicillin for 2 days before being transitioned to Primaxin for an additional 6 days. Caspofungin was never stopped. Interestingly, her blood cx's drawn on 08/01 are growing yeast. New BLCX's ordered today. MRSA nasal screen negative . Plan Vancomycin IV * Loading dose: 2000 mg (~23-24 mg/kg) * Maintenance dose: 1250 mg IV (14.5 mg/kg) every 10 hours * Goal trough level for empiric coverage, likely GI source : 15 to 20 mcg/mL - initially until results of C&S available, a goal of 10-20 may be acceptable * Trough level ordered for 08/08/16 Pharmacy will continue to follow and will adjust dose/frequency as necessary. Thank you.
[2016-08-06] MEDS: D5NSS + 20MEQ KCL 1,000 ML IV SCH (12:08)
--- NOTE | 2016-08-06 14:26 | Surgery Progress Note ---
Surgery Progress Note Date of Service August 06, 2016. Subjective continues to clinically improve only c/o is "tired" stoma fx. had some emesis yesterday with clears but feels better/tolerating clears today Objective Vital Signs: Date Time Temp Pulse Resp B/P Pulse Ox O2 Delivery O2 Flow Rate FiO2 08/06/16 07:58 37.0 84 18 104/64 93 Room Air 08/06/16 07:47 Room Air 08/05/16 23:35 Room Air 08/05/16 22:34 36.3 86 16 115/64 96 Room Air 08/05/16 17:30 Room Air 08/05/16 15:10 36.5 84 16 127/78 96 Room Air Physical Exam: JESS drainage (serous) General Appearance: no apparent distress Abdomen: non distended, soft Incision(s): clean, dry, intact Laboratory Results: Results Past 24 Hours Test 08/05/16 17:04 08/05/16 20:34 08/06/16 05:10 08/06/16 07:55 Range/Units Bedside Glucose 103 99 104 70-90 mg/dl White Blood Count 17.60 4.8-10.8 K/uL Red Blood Count 3.19 4.2-5.4 M/uL Hemoglobin 8.6 12.0-16.0 g/dL Hematocrit 27.5 37-47 % Mean Corpuscular Volume 86.2 80-100 fL Mean Corpuscular Hemoglobin 27.0 25-34 pg Mean Corpuscular Hemoglobin Concent 31.3 32-36 g/dl Platelet Count 344 130-400 K/uL Mean Platelet Volume 10.4 7.4-10.4 fL Neutrophils (%) (Auto) 83.0 % Lymphocytes (%) (Auto) 8.1 % Monocytes (%) (Auto) 4.4 % Eosinophils (%) (Auto) 1.6 % Basophils (%) (Auto) 0.2 % Neutrophils # (Auto) 14.61 1.4-6.5 K/uL Lymphocytes # (Auto) 1.43 1.2-3.4 K/uL Monocytes # (Auto) 0.78 0.11-0.59 K/uL Eosinophils # (Auto) 0.28 0-0.5 K/uL Basophils # (Auto) 0.03 0-0.2 K/uL RDW Standard Deviation 52.6 36.4-46.3 fL RDW Coefficient of Variation 16.7 11.5-14.5 % Immature Granulocyte % (Auto) 2.7 % Immature Granulocyte # (Auto) 0.47 0.00-0.02 K/uL Red Blood Cell Morphology Unremarkable Sodium Level 142 136-145 mmol/L Potassium Level 3.1 3.5-5.1 mmol/L Chloride Level 106 98-107 mmol/L Carbon Dioxide Level 29 21-32 mmol/L Anion Gap 7.0 3-11 mmol/L Blood Urea Nitrogen 12 7-18 mg/dl Creatinine 0.52 0.60-1.20 mg/dl Est Creatinine Clear Calc Drug Dose 102.3 ml/min Estimated GFR () 112.2 Estimated GFR (Non- 96.8 BUN/Creatinine Ratio 23.9 10-20 Random Glucose 98 70-99 mg/dl Calcium Level 7.1 8.5-10.1 mg/dl Phosphorus Level 1.9 2.5-4.9 mg/dl Magnesium Level 2.1 1.8-2.4 mg/dl Test 08/06/16 12:04 Range/Units Bedside Glucose 112 70-90 mg/dl Microbiology Results 08/06/16 Blood Culture, Received Pending 08/06/16 Blood Culture, Received Pending Assessment & Plan 08/06/16 clinically doing well stay on clears for now wound/stoma/jess all look good wbc increased to 17,000 today. ? etiology. d/w medicine. will repeat cultures and add vanco. will obtain cxr also. IM to d/w ID tomorrow. if continues to increase may need repeat ct scan of abdomen 08/05/16 clinically doing much better stoma function. low ngt output. will pull ngt and start clears wbc up to 13,000...? etiology. ID on board. will d/c roche--? source. antibiotics per ID increase activity/PT/OT 08/05/16 clinically doing much better stoma function. low ngt output. will pull ngt and start clears wbc up to 13,000...? etiology. ID on board. will d/c roche--? source. antibiotics per ID increase activity/PT/OT
[2016-08-06 15:25] VITALS: BP 113/77; PULSE 94; TEMP 36.7; O2SAT 97
--- NOTE | 2016-08-06 15:56 | DIAGNOSTIC IMAGING REPORT ---
CHEST ONE VIEW PORTABLE HISTORY: r/o pneumonia COMPARISON: Chest 07/31/2016. FINDINGS: The endotracheal tube and nasogastric tube is been removed. Linear density at the left lung base suggesting subsegmental atelectasis. Trace bilateral pleural effusions persist. No new focal lung consolidations. No evidence for pulmonary edema. The heart is normal in size. IMPRESSION: 1. Trace bilateral pleural effusions, unchanged. 2. Nonspecific linear density at the left lung base favor atelectasis. This is also unchanged. Electronically signed by: Thomas Pang M.D. 08/06/2016 3:55 PM Dictated Date/Time: 08/06/2016 3:54 PM
[2016-08-06] MEDS ORDERED: POTASSIUM PHOSPHATE INJ 15 MMOL in SODIUM CHLORIDE 0.9% 250ML 250 ML IV ONE (18:00)
[2016-08-06] MEDS ORDERED: NURSING VERBAL MED ORDER ONE (19:15)
--- NOTE | 2016-08-06 19:37 | DIAGNOSTIC IMAGING REPORT ---
KUB HISTORY: Nausea. Vomiting. COMPARISON: Abdomen and pelvis CT 08/04/2016. Chest and abdominal series 07/30/2016. FINDINGS: Surgical drains remain within the pelvis. Multiple distended gas-filled loops of small bowel seen predominantly within the left side the abdomen. This is similar to the prior study. Small bilateral pleural effusions, unchanged. No renal calculi. No ureteral calculi. The small bowel measures up to 5.7 cm in diameter. IMPRESSION: 1. No significant change from the prior CT examination. 2. Multiple distended loops of small bowel are again noted within the left side of the abdomen. 3. Small bilateral pleural effusions, unchanged. Electronically signed by: Thomas Pang M.D. 08/06/2016 7:36 PM Dictated Date/Time: 08/06/2016 7:31 PM
[2016-08-06] MEDS: VANCOMYCIN INJ 1,250 MG in SODIUM CHLORIDE 0.9% 250ML 250 ML IV SCH (22:00)
[2016-08-06 23:05] VITALS: BP 100/66; PULSE 83; TEMP 36.5; O2SAT 94
[2016-08-07] MEDS: D5NSS + 20MEQ KCL 1,000 ML IV SCH ×2 (00:05→13:32)
[2016-08-07] MEDS: IPRATROPIUM BROMIDE/ALBUTEROL respimat INH INH SCH ×5 (00:05→23:31)
[2016-08-07] MEDS ORDERED: NURSING VERBAL MED ORDER ONE ×2 (00:30→18:00)
[2016-08-07] MEDS: IMIPENEM/CILASTATIN IV 500 MG in DEXTROSE 5% 100ML 100 ML IV SCH ×4 (03:46→23:31)
[2016-08-07] MEDS: INSULIN ASPART 100 UNITS/ML 3 ML PEN SC SCH ×4 (05:46→21:00)
[2016-08-07 06:06] LABS: HEMATOCRIT 26.3 % (37-47); MEAN CELL VOLUME 85.7 fL (80-100); MEAN CORPUSCULAR HEMOGLOBIN 26.7 pg (25-34); MEAN CORPUSCULAR HGB CONC 31.2 g/dl (32-36); MEAN PLATELET VOLUME 9.9 fL (7.4-10.4); PLATELET COUNT 409 K/uL (130-400); RED BLOOD COUNT 3.07 M/uL (4.2-5.4); WHITE BLOOD COUNT 18.38 K/uL (4.8-10.8)
[2016-08-07 06:22] LABS: BUN/CREATININE RATIO 23.4 (10-20); CALCIUM 6.5 mg/dl (8.5-10.1); CREATININE 0.6 mg/dl (0.60-1.20); PHOSPHORUS 2.8 mg/dl (2.5-4.9); POTASSIUM 3.6 mmol/L (3.5-5.1)
[2016-08-07 07:20] VITALS: BP 106/72; PULSE 86; TEMP 36.6; O2SAT 95
[2016-08-07 07:36] LABS: BASO % 0.3 %; BASO ABS # 0.05 K/uL (0-0.2); COMPLETE YES; EOS % 1.1 %; IG% 2.1 %; LYMPH % 10.7 %; LYMPH ABS # 1.96 K/uL (1.2-3.4); MONO % 5.4 %; NEUT % 80.4 %
[2016-08-07] MEDS: VANCOMYCIN INJ 1,250 MG in SODIUM CHLORIDE 0.9% 250ML 250 ML IV SCH ×2 (07:46→17:53)
[2016-08-07] MEDS: CASPOFUNGIN INJ 50 MG in SODIUM CHLORIDE 0.9% 250ML 250 ML IV SCH (09:44)
[2016-08-07] MEDS: LEVOTHYROXINE SODIUM INJ 37.5 MCG in SYRINGE 0 ML IV SCH (09:44)
[2016-08-07] MEDS: FLUTICASONE PROPIONATE NA SPR 16 GM BTL NAE SCH (09:45)
[2016-08-07] MEDS: CHLORHEXIDINE GLUCONATE 0.12% 480 ML MT SCH ×2 (09:45→20:07)
[2016-08-07] MEDS: ENOXAPARIN 40 MG/0.4 ML SYR SQ SCH (09:46)
--- NOTE | 2016-08-07 09:55 | Progress Note ---
Subjective Date of Service: August 07, 2016. Subjective Pt evaluation today including: conversation w/ patient, physical exam, chart review, lab review pt seen in follow up. Over weekend, 08/01 blood cultures + non albicans yeast. she has been on caspo. tolerating well. repeat blood cultures from 08/06 pending. cath tip culture from 08/01 negative. wbc increased over weekend, last ct abd 08/04 had no abscess/collection. vanco was added over weekend secondary to increased wbc. wound vac in place. ostomy functioning. She tolerated clears over the weekend, asking to advance to full diet today. No abd pain, denies f/ c. oob to chair. looks more comfortable today. no n/v. no cp, sob. all remaining ros reviewed and are negative. Problem List Medical Problems: (1) Closed head injury Status: Acute (2) Dehydration Status: Acute (3) Fall Status: Acute (4) Hypothermia Status: Acute (5) Perforated viscus Status: Acute (6) Perforation of cecum Status: Acute (7) Pressure ulcer Status: Acute (8) Rhabdomyolysis Status: Acute (9) Septic shock Status: Acute (10) UTI (urinary tract infection) Status: Acute Objective Vital Signs Date Time Temp Pulse Resp B/P Pulse Ox O2 Delivery O2 Flow Rate FiO2 08/07/16 07:50 Room Air 08/07/16 07:20 36.6 86 18 106/72 95 Room Air 08/06/16 23:45 Room Air 08/06/16 23:05 36.5 83 18 100/66 94 Room Air 08/06/16 15:49 Room Air 08/06/16 15:25 36.7 94 18 113/77 97 Room Air Physical Exam General Appearance: WD/WN, no apparent distress Eyes: normal inspection, EOMI Neck: supple Respiratory/Chest: lungs clear, normal breath sounds, no respiratory distress, + decreased breath sounds Cardiovascular: regular rate, rhythm, no edema Abdomen: non tender, soft, + pertinent finding (wound vac in place, no surrounding erythema but output cloudy. ostomoy pink) Extremities: non-tender, normal inspection, no pedal edema Neurologic/Psychiatric: alert, oriented x 3 Skin: normal color Laboratory Results Item Value Date Time Blood Culture - Preliminary Resulted 08/01/16 0957 Blood Yeast Not Romy Albicans Blood Culture - Preliminary Resulted 08/01/16 1007 Blood YEAST Blood Culture - Final Complete 07/31/16 0842 Blood NO GROWTH Gram Stain - Final Complete 07/30/16 0000 Aspirate - Other Abdomen Blood Culture - Final Complete 07/30/16 0355 Blood NO GROWTH Blood Culture - Final Complete 07/30/16 0345 Blood NO GROWTH Catheter Tip Culture - Final Complete 08/01/16 1330 Catheter Tip Central Venous Pressure Line NO GROWTH Last 24 Hours Test 08/06/16 12:04 08/06/16 16:21 08/06/16 16:55 08/06/16 20:33 Bedside Glucose 112 mg/dl 92 mg/dl 84 mg/dl Potassium Level 3.2 mmol/L Test 08/07/16 00:30 08/07/16 05:25 08/07/16 05:29 Bedside Glucose 100 mg/dl 99 mg/dl White Blood Count 18.38 K/uL Red Blood Count 3.07 M/uL Hemoglobin 8.2 g/dL Hematocrit 26.3 % Mean Corpuscular Volume 85.7 fL Mean Corpuscular Hemoglobin 26.7 pg Mean Corpuscular Hemoglobin Concent 31.2 g/dl Platelet Count 409 K/uL Mean Platelet Volume 9.9 fL Neutrophils (%) (Auto) 80.4 % Lymphocytes (%) (Auto) 10.7 % Monocytes (%) (Auto) 5.4 % Eosinophils (%) (Auto) 1.1 % Basophils (%) (Auto) 0.3 % Neutrophils # (Auto) 14.79 K/uL Lymphocytes # (Auto) 1.96 K/uL Monocytes # (Auto) 0.99 K/uL Eosinophils # (Auto) 0.21 K/uL Basophils # (Auto) 0.05 K/uL RDW Standard Deviation 52.1 fL RDW Coefficient of Variation 16.6 % Immature Granulocyte % (Auto) 2.1 % Immature Granulocyte # (Auto) 0.38 K/uL Red Blood Cell Morphology Unremarkable Sodium Level 140 mmol/L Potassium Level 3.6 mmol/L Chloride Level 106 mmol/L Carbon Dioxide Level 29 mmol/L Anion Gap 5.0 mmol/L Blood Urea Nitrogen 14 mg/dl Creatinine 0.60 mg/dl Est Creatinine Clear Calc Drug Dose 88.7 ml/min Estimated GFR () 107.0 Estimated GFR (Non- 92.4 BUN/Creatinine Ratio 23.4 Random Glucose 99 mg/dl Calcium Level 6.5 mg/dl Phosphorus Level 2.8 mg/dl Assessment and Plan (1) Polymicrobial sepsis Assessment & Plan: continue current antimicrobials. if 5/14 cultures without gpc will stop vanco. may require repeat imaging of abd. no clear source for increased wbc as she is clinically better. remains afebrile. will follow. (2) Fungemia Assessment & Plan: has been on caspo, will continue this. central line out. will need echo to r/o veg. (3) Peritonitis (4) Perforated viscus
[2016-08-07] MEDS: ALUMINUM/MAGNESIUM SUSP 30 ML UDC PO SCH ×4 (09:56→20:06)
[2016-08-07] MEDS: FAMOTIDINE IV INJ 20 MG in DEXTROSE 5% 100ML 100 ML IV SCH ×2 (10:36→22:30)
--- NOTE | 2016-08-07 11:54 | Surgery Progress Note ---
Surgery Progress Note Date of Service August 07, 2016. Subjective Post OP Day: POD # 8 s/p ex lap, right hemicolectomy with ileostomy formation + bowel movement (in ostomy), + diet (clear liquids over weekend, +hungry), + feeling well, + flatus, + vomiting (per nursing staff had emesis yesterday x 3) , No complaints, No nausea Objective Vital Signs: Date Time Temp Pulse Resp B/P Pulse Ox O2 Delivery O2 Flow Rate FiO2 08/07/16 07:50 Room Air 08/07/16 07:20 36.6 86 18 106/72 95 Room Air 08/06/16 23:45 Room Air 08/06/16 23:05 36.5 83 18 100/66 94 Room Air 08/06/16 15:49 Room Air 08/06/16 15:25 36.7 94 18 113/77 97 Room Air Physical Exam: MARIBEL drainage (serous) General Appearance: WD/WN, no apparent distress Head: normocephalic, atraumatic Neck: trachea midline Respiratory/Chest: no respiratory distress, no accessory muscle use Abdomen: non tender, non distended, soft, + pertinent finding (Midline wound with healthy granulation tissue however tunneling about 11 cm at superior aspect of incision, purulent drainage, cloudy drainage in wound vac cannister, ostomy pink and functioning, mucous fistula pink and functioning) Laboratory Results: Results Past 24 Hours Test 08/06/16 12:04 08/06/16 16:21 08/06/16 16:55 08/06/16 20:33 Range/Units Bedside Glucose 112 92 84 70-90 mg/dl Potassium Level 3.2 3.5-5.1 mmol/L Test 08/07/16 00:30 08/07/16 05:25 08/07/16 05:29 Range/Units Bedside Glucose 100 99 70-90 mg/dl White Blood Count 18.38 4.8-10.8 K/uL Red Blood Count 3.07 4.2-5.4 M/uL Hemoglobin 8.2 12.0-16.0 g/dL Hematocrit 26.3 37-47 % Mean Corpuscular Volume 85.7 80-100 fL Mean Corpuscular Hemoglobin 26.7 25-34 pg Mean Corpuscular Hemoglobin Concent 31.2 32-36 g/dl Platelet Count 409 130-400 K/uL Mean Platelet Volume 9.9 7.4-10.4 fL Neutrophils (%) (Auto) 80.4 % Lymphocytes (%) (Auto) 10.7 % Monocytes (%) (Auto) 5.4 % Eosinophils (%) (Auto) 1.1 % Basophils (%) (Auto) 0.3 % Neutrophils # (Auto) 14.79 1.4-6.5 K/uL Lymphocytes # (Auto) 1.96 1.2-3.4 K/uL Monocytes # (Auto) 0.99 0.11-0.59 K/uL Eosinophils # (Auto) 0.21 0-0.5 K/uL Basophils # (Auto) 0.05 0-0.2 K/uL RDW Standard Deviation 52.1 36.4-46.3 fL RDW Coefficient of Variation 16.6 11.5-14.5 % Immature Granulocyte % (Auto) 2.1 % Immature Granulocyte # (Auto) 0.38 0.00-0.02 K/uL Red Blood Cell Morphology Unremarkable Sodium Level 140 136-145 mmol/L Potassium Level 3.6 3.5-5.1 mmol/L Chloride Level 106 98-107 mmol/L Carbon Dioxide Level 29 21-32 mmol/L Anion Gap 5.0 3-11 mmol/L Blood Urea Nitrogen 14 7-18 mg/dl Creatinine 0.60 0.60-1.20 mg/dl Est Creatinine Clear Calc Drug Dose 88.7 ml/min Estimated GFR () 107.0 Estimated GFR (Non- 92.4 BUN/Creatinine Ratio 23.4 10-20 Random Glucose 99 70-99 mg/dl Calcium Level 6.5 8.5-10.1 mg/dl Phosphorus Level 2.8 2.5-4.9 mg/dl Microbiology Results 08/06/16 Urine Culture, Received Pending Assessment & Plan POD # 8 s/p exploratory laparotomy , right hemicolectomy with ileostomy formation and mucous fistula - vitals stable - Leukocytosis over weekend and increased today (18) wound with purulent drainage and 11 cm tunneling at superior aspect of incision CXR showed no evidence of pneumonia repeat blood cultures and urine culture pending - H&H stable - ostomy pink with stool output - adequate urine output, BUN/creatinine wnl Plan: Continue pain management with IV Tylenol and IV Dilaudid prn pain Continue IV antibiotics and Caspofungin Advance diet to full liquids Continue wound vac settings with irrigation of the wound prior to applying wound vac MARIBEL drains to bulb suction Continue Lovenox for DVT prophylaxis Repeat am labs Dr. Powers has seen and examined patient, agrees with above findings and treatment plan.
[2016-08-07 15:20] VITALS: BP 123/75; PULSE 66; TEMP 36.7; O2SAT 98
[2016-08-07] MEDS: METOCLOPRAMIDE HCL INJ 5 MG/ML 2 ML VIAL IV PRN (18:03)
[2016-08-07] MEDS: ACETAMINOPHEN IV 650 MG in EMPTY BAG 0 ML IV PRN (20:06)
--- NOTE | 2016-08-07 20:51 | Progress Note ---
Medicine Progress Note Date & Time of Visit: August 07, 2016 at 20:51. Subjective delayed entry date of service as noted above patient alert, awake states she had some nausea today not much abdominal pain no fever/chills no shortness of breath Objective Last 8 Hrs Date Time Temp Pulse Resp B/P Pulse Ox O2 Delivery O2 Flow Rate FiO2 08/07/16 16:32 Room Air 08/07/16 15:20 36.7 66 18 123/75 98 Room Air Physical Exam: General- oriented x 3, not in distress, speaks in sentences with no effort Eyes- anicteric Lungs- clear breath sounds bilaterally Heart- normal rate, regular rhythm; no murmurs Abdomen- wound vac in place, non distended, soft, mild tenderness Extremities- no pretibial edema, no calf tenderness Neuro- alert, oriented x 3; no gross focal deficits Skin- warm & dry Laboratory Results: Last 24 Hours Test 08/07/16 00:30 08/07/16 05:25 08/07/16 05:29 08/07/16 12:06 Bedside Glucose 100 mg/dl 99 mg/dl 103 mg/dl White Blood Count 18.38 K/uL Red Blood Count 3.07 M/uL Hemoglobin 8.2 g/dL Hematocrit 26.3 % Mean Corpuscular Volume 85.7 fL Mean Corpuscular Hemoglobin 26.7 pg Mean Corpuscular Hemoglobin Concent 31.2 g/dl Platelet Count 409 K/uL Mean Platelet Volume 9.9 fL Neutrophils (%) (Auto) 80.4 % Lymphocytes (%) (Auto) 10.7 % Monocytes (%) (Auto) 5.4 % Eosinophils (%) (Auto) 1.1 % Basophils (%) (Auto) 0.3 % Neutrophils # (Auto) 14.79 K/uL Lymphocytes # (Auto) 1.96 K/uL Monocytes # (Auto) 0.99 K/uL Eosinophils # (Auto) 0.21 K/uL Basophils # (Auto) 0.05 K/uL RDW Standard Deviation 52.1 fL RDW Coefficient of Variation 16.6 % Immature Granulocyte % (Auto) 2.1 % Immature Granulocyte # (Auto) 0.38 K/uL Red Blood Cell Morphology Unremarkable Sodium Level 140 mmol/L Potassium Level 3.6 mmol/L Chloride Level 106 mmol/L Carbon Dioxide Level 29 mmol/L Anion Gap 5.0 mmol/L Blood Urea Nitrogen 14 mg/dl Creatinine 0.60 mg/dl Est Creatinine Clear Calc Drug Dose 88.7 ml/min Estimated GFR () 107.0 Estimated GFR (Non- 92.4 BUN/Creatinine Ratio 23.4 Random Glucose 99 mg/dl Calcium Level 6.5 mg/dl Phosphorus Level 2.8 mg/dl Test 08/07/16 17:32 Bedside Glucose 96 mg/dl Assessment & Plan 71 year old female with history of DM, HTN, COPD SEPTIC SHOCK SECONDARY TO COLONIC PERFORATION, resolved POSSIBLE FUNGEMIA S/P Emergent Exploratory Laparotomy, Bowel Resection, Creation of Colostomy, Left Salpingo-oophorectomy by Dr Powers 07/30/16 -- Abdominal Fluid: (+) E coli, moderate yeast repeat Blood cultures 08/01/16: (+) yeast -- WBC increased to 18k, although no fever, clinically appears improving -- blood and urine cultures pending -- added Vancomycin -- continue IV Imipenem, Caspofungin ID on board -- D5 NSS ANEMIA possible acute blood loss from colon perforation, post op state -- stable ACUTE RENAL FAILURE ON CKD STAGE III - RESOLVED RECENT HX OF UTI/BACTEREMIA Was discharged from hospital on 07/21/16 on IV Invanz and PO Amoxicillin for E coli and Enterococcus. 1/2 bottles grew E coli/PCN sensitive enterococcus -Was supposed to received IV Invanz via PICC line and PO amoxicillin for 14 days. PICC line was removed by Director Stars and central line placed -- continue IV Invanz, Caspofungin HTN -Diamox and lisinopril on hold. - continue IV fluids for now DM - hgb a1c 5.4 04/2016 -Holding oral agents and utilize SSI while hospitalized -ACHS -blood sugar COPD resumed Enoro Ellipta on Combivent -- wheezing resolved HYPOTHYROIDISM -IV levothyroxine DVT PROPHYLAXIS Lovenox GI PROPHYLAXIS PPI - IV DISPOSITION pending PT OT je Thank you for this consultation. We will follow the patient with you during their hospital stay. You can reach a member of the [facility] Hospitalist Team 16/10 via pager @ . Current Inpatient Medications: Current Inpatient Medications Medications (Trade) Dose Ordered Sig/Kwabena Route Start Time Stop Time Status Last Admin Dose Admin Chlorhexidine Gluconate (Peridex Oral Soln) 15 ml BID MT 07/30/16 21:00 08/29/16 20:59 08/07/16 09:45 15 ML Glucose (Glucose 40% Gel) 15-30 GRAMS 15 GRAMS... UD PRN PO 07/30/16 14:45 08/29/16 14:44 Glucose (Glucose Chew Tab) 4-8 Tablets 4 Tabl... UD PRN PO 07/30/16 14:45 08/29/16 14:44 Dextrose (Dextrose 50% 50ML Syringe) 25-50ML OF 50% DW IV FOR... UD PRN IV 07/30/16 14:45 08/29/16 14:44 Glucagon 1 mg 1 mg UD PRN SQ 07/30/16 14:45 08/29/16 14:44 Levothyroxine Sodium 37.5 mcg/ Syringe 1.875 ml @ 2 mls/min DAILY@09 IV 07/31/16 09:00 08/30/16 08:59 08/07/16 09:44 2 MLS/MIN Caspofungin/ Sodium Chloride (Cancidas Inj/ Nss 250ml) 260 ml @ 250 mls/hr DAILY IV 08/01/16 09:00 08/31/16 08:59 08/07/16 09:44 250 MLS/HR Enoxaparin Sodium (Lovenox Inj) 40 mg QAM SQ 08/01/16 09:00 08/31/16 08:59 08/07/16 09:46 40 MG Enteral Nutritional Formula 1000 ml 1,000 ml UD PO 08/01/16 07:15 08/31/16 07:14 Future Hold 08/01/16 10:18 1,000 ML Acetaminophen/ Empty Bag (Ofirmev Iv/ Empty Iv Bag 100ml) 65 ml @ 260 mls/hr Q6H PRN IV 08/01/16 09:15 08/31/16 09:14 08/07/16 20:06 260 MLS/HR Hydromorphone HCl (Dilaudid Inj) 0.5 mg Q4H PRN IV 08/01/16 09:15 08/15/16 09:14 08/03/16 09:13 0.5 MG Metoclopramide HCl 10 mg 10 mg Q6H PRN IV 08/02/16 10:00 09/01/16 09:59 08/07/16 18:03 10 MG Famotidine/ Dextrose (Pepcid IV Inj/ D5 100ml) 102 ml @ 204 mls/hr Q12H IV 08/02/16 22:00 09/01/16 21:59 08/07/16 10:36 204 MLS/HR Albuterol/ Ipratropium (Combivent Respimat Inh) 1 puffs Q6 INH 08/05/16 21:00 09/04/16 20:59 08/07/16 17:56 1 PUFFS Albuterol/ Ipratropium (Duoneb) 3 ml Q6R PRN INH 08/04/16 19:30 09/03/16 19:29 Al Hydroxide/Mg Hydroxide 30 ml 30 ml QID PO 08/05/16 17:00 08/29/16 16:59 08/07/16 20:06 30 ML Imipenem/ Cilastatin Sodium 500 mg/Dextrose 110 ml @ 100 mls/hr Q6H IV 08/06/16 10:00 08/16/16 09:59 08/07/16 16:23 100 MLS/HR Potassium Chloride/Dextrose/ Sod Cl (D5nss + 20meq KCl) 1,000 ml @ 75 mls/hr [id number] IV 08/06/16 11:30 09/05/16 10:59 08/07/16 13:32 75 MLS/HR Vancomycin HCl (Consult) 1 ea UD PRN N/A 08/06/16 10:56 09/05/16 10:55 Miscellaneous Information (Order Awaiting Action) 1 ea QS N/A 08/06/16 16:00 09/05/16 15:59 Fluticasone Propionate 2 sprays 2 sprays DAILY MARI 08/07/16 09:00 09/06/16 08:59 08/07/16 09:45 2 SPRAYS Vancomycin HCl/ Sodium Chloride (Vancomycin Inj/ Nss 250ml) 275 ml @ 125 mls/hr Q10H IV 08/06/16 22:00 08/16/16 21:59 08/07/16 17:53 125 MLS/HR Insulin Aspart (novoLOG ASPART) SLIDING SCALE ACHS SC 08/07/16 21:00 09/06/16 05:59
[2016-08-07 22:48] VITALS: BP 96/66; PULSE 94; TEMP 36.7; O2SAT 94
[2016-08-08] MEDS: HYDROmorphone INJ 1 MG/ML SYR IV PRN ×2 (02:13→20:28)
[2016-08-08] MEDS: METOCLOPRAMIDE HCL INJ 5 MG/ML 2 ML VIAL IV PRN ×3 (02:30→23:49)
[2016-08-08] MEDS ORDERED: VANCOMYCIN TROUGH ONE (03:30)
[2016-08-08 03:53] LABS: HEMATOCRIT 27.3 % (37-47); MEAN CELL VOLUME 87.2 fL (80-100); MEAN CORPUSCULAR HEMOGLOBIN 27.8 pg (25-34); MEAN CORPUSCULAR HGB CONC 31.9 g/dl (32-36); MEAN PLATELET VOLUME 9.9 fL (7.4-10.4); PLATELET COUNT 477 K/uL (130-400); RED BLOOD COUNT 3.13 M/uL (4.2-5.4); WHITE BLOOD COUNT 17.17 K/uL (4.8-10.8)
[2016-08-08 04:13] LABS: BASO % 0.2 %; BASO ABS # 0.03 K/uL (0-0.2); COMPLETE YES; DOHLE BODIES 1+; EOS % 0.5 %; IG% 2.2 %; LARGE PLATELETS 1+; LYMPH % 8.6 %; LYMPH ABS # 1.47 K/uL (1.2-3.4); MONO % 5.5 %; POLYCHROMASIA 1+
[2016-08-08 04:15] LABS: BUN/CREATININE RATIO 21.6 (10-20); CALCIUM 7.3 mg/dl (8.5-10.1); CREATININE 0.68 mg/dl (0.60-1.20); PHOSPHORUS 3.3 mg/dl (2.5-4.9); POTASSIUM 4.5 mmol/L (3.5-5.1)
[2016-08-08] MEDS: IMIPENEM/CILASTATIN IV 500 MG in DEXTROSE 5% 100ML 100 ML IV SCH ×4 (04:28→22:26)
[2016-08-08] MEDS: D5NSS + 20MEQ KCL 1,000 ML IV SCH ×2 (04:29→17:56)
[2016-08-08] MEDS: ACETAMINOPHEN IV 650 MG in EMPTY BAG 0 ML IV PRN ×3 (05:41→18:37)
[2016-08-08] MEDS: VANCOMYCIN INJ 1,250 MG in SODIUM CHLORIDE 0.9% 250ML 250 ML IV SCH (05:46)
[2016-08-08] MEDS: IPRATROPIUM BROMIDE/ALBUTEROL respimat INH INH SCH ×4 (05:46→23:49)
[2016-08-08] MEDS: ONDANSETRON INJ 2 MG/ML 2 ML VIAL IV PRN ×3 (06:08→18:10)
[2016-08-08 07:58] VITALS: BP 114/73; PULSE 74; TEMP 36.5; O2SAT 96
[2016-08-08] MEDS: INSULIN ASPART 100 UNITS/ML 3 ML PEN SC SCH ×4 (08:00→21:00)
[2016-08-08] MEDS: CASPOFUNGIN INJ 50 MG in SODIUM CHLORIDE 0.9% 250ML 250 ML IV SCH (08:47)
[2016-08-08] MEDS: LEVOTHYROXINE SODIUM INJ 37.5 MCG in SYRINGE 0 ML IV SCH (09:00)
[2016-08-08] MEDS: FLUTICASONE PROPIONATE NA SPR 16 GM BTL NAE SCH (09:01)
[2016-08-08] MEDS: ENOXAPARIN 40 MG/0.4 ML SYR SQ SCH (09:01)
[2016-08-08] MEDS: CHLORHEXIDINE GLUCONATE 0.12% 480 ML MT SCH ×3 (09:12→23:49)
[2016-08-08] MEDS: ALUMINUM/MAGNESIUM SUSP 30 ML UDC PO SCH (09:16)
[2016-08-08] MEDS: FAMOTIDINE IV INJ 20 MG in DEXTROSE 5% 100ML 100 ML IV SCH ×2 (09:49→22:25)
[2016-08-08] MEDS ORDERED: NURSING VERBAL MED ORDER ONE (10:30)
[2016-08-08] MEDS ORDERED: ALUMINUM/MAGNESIUM SUSP 30 ML UDC PO PRN (10:30)
--- NOTE | 2016-08-08 10:51 | Progress Note ---
Subjective Date of Service: August 08, 2016. Subjective afebrile overnight. remains on abx. blood cultures negative. 08/01 culture with c. glabrata. vac remains in place. purulent drainage noted by surgery from incision yesterday. wbc slightly better today. urine culture negative, cxr without pna. no overnight events. Problem List Medical Problems: (1) Closed head injury Status: Acute (2) Dehydration Status: Acute (3) Fall Status: Acute (4) Hypothermia Status: Acute (5) Perforated viscus Status: Acute (6) Perforation of cecum Status: Acute (7) Pressure ulcer Status: Acute (8) Rhabdomyolysis Status: Acute (9) Septic shock Status: Acute (10) UTI (urinary tract infection) Status: Acute Objective Vital Signs Date Time Temp Pulse Resp B/P Pulse Ox O2 Delivery O2 Flow Rate FiO2 08/08/16 10:20 Room Air 08/08/16 07:58 36.5 74 18 114/73 96 Room Air 08/07/16 22:48 36.7 94 18 96/66 94 Room Air 08/07/16 19:55 Room Air 08/07/16 16:32 Room Air 08/07/16 15:20 36.7 66 18 123/75 98 Room Air Laboratory Results Item Value Date Time Blood Culture - Preliminary Resulted 08/06/16 1108 Blood NO GROWTH TO DATE. Blood Culture - Preliminary Resulted 08/06/16 1100 Blood NO GROWTH TO DATE. Blood Culture - Final Complete 08/01/16 1007 Blood Romy Glabrata (T. Glabrata) Blood Culture - Final Complete 08/01/16 0957 Blood Romy Glabrata (T. Glabrata) Catheter Tip Culture - Final Complete 08/01/16 1330 Catheter Tip Central Venous Pressure Line NO GROWTH Gram Stain - Final Complete 07/30/16 0000 Aspirate - Other Abdomen Last 24 Hours Test 08/07/16 12:06 08/07/16 17:32 08/07/16 20:49 08/08/16 03:30 Bedside Glucose 103 mg/dl 96 mg/dl 94 mg/dl White Blood Count 17.17 K/uL Red Blood Count 3.13 M/uL Hemoglobin 8.7 g/dL Hematocrit 27.3 % Mean Corpuscular Volume 87.2 fL Mean Corpuscular Hemoglobin 27.8 pg Mean Corpuscular Hemoglobin Concent 31.9 g/dl Platelet Count 477 K/uL Mean Platelet Volume 9.9 fL Neutrophils (%) (Auto) 83.0 % Lymphocytes (%) (Auto) 8.6 % Monocytes (%) (Auto) 5.5 % Eosinophils (%) (Auto) 0.5 % Basophils (%) (Auto) 0.2 % Neutrophils # (Auto) 14.28 K/uL Lymphocytes # (Auto) 1.47 K/uL Monocytes # (Auto) 0.94 K/uL Eosinophils # (Auto) 0.08 K/uL Basophils # (Auto) 0.03 K/uL RDW Standard Deviation 53.9 fL RDW Coefficient of Variation 16.6 % Immature Granulocyte % (Auto) 2.2 % Immature Granulocyte # (Auto) 0.37 K/uL Dohle Bodies 1+ Large Platelets 1+ Polychromasia 1+ Sodium Level 142 mmol/L Potassium Level 4.5 mmol/L Chloride Level 105 mmol/L Carbon Dioxide Level 34 mmol/L Anion Gap 3.0 mmol/L Blood Urea Nitrogen 15 mg/dl Creatinine 0.68 mg/dl Est Creatinine Clear Calc Drug Dose 78.2 ml/min Estimated GFR () 102.7 Estimated GFR (Non- 88.6 BUN/Creatinine Ratio 21.6 Random Glucose 104 mg/dl Calcium Level 7.3 mg/dl Phosphorus Level 3.3 mg/dl Vancomycin Level Trough 24.3 mcg/ml Test 08/08/16 08:41 Bedside Glucose 106 mg/dl Assessment and Plan (1) Polymicrobial sepsis Assessment & Plan: continue abx for now, if repeat blood cultures remain negative, may stop vanco however, purulence noted from wound yesterday, if this persists, culture should be obtained. If she remains with elevated wbc, repeat ct may be required. No gpc grew from OR cultures but improved wbc (2) Fungemia Assessment & Plan: repeat cultures negative to date. needs echo r/o veg (3) Peritonitis (4) Perforated viscus
--- NOTE | 2016-08-08 11:13 | Surgery Progress Note ---
Surgery Progress Note Date of Service August 08, 2016. Subjective Post OP Day: 9 + diet (tolerated full liquids), + nausea (intermittent), No vomiting Objective Vital Signs: Date Time Temp Pulse Resp B/P Pulse Ox O2 Delivery O2 Flow Rate FiO2 08/08/16 10:20 Room Air 08/08/16 07:58 36.5 74 18 114/73 96 Room Air 08/07/16 22:48 36.7 94 18 96/66 94 Room Air 08/07/16 19:55 Room Air 08/07/16 16:32 Room Air 08/07/16 15:20 36.7 66 18 123/75 98 Room Air Physical Exam: MARIBEL drainage (MARIBEL #1; 11 cc yesterday, 0 cc last shift; MARIBEL #2: 315 cc yesterday, 170 cc last shift) Abdomen: non distended, soft, + tenderness (above mucus fistula) Incision(s): no erythema, drainage (some purulent drainage from base of wound, edges pink tunneling unchanged, digital exam of mucus fistula revealed no fluctuance around the site, no skin erythema or crepitance) Laboratory Results: Results Past 24 Hours Test 08/07/16 12:06 08/07/16 17:32 08/07/16 20:49 08/08/16 03:30 Range/Units Bedside Glucose 103 96 94 70-90 mg/dl White Blood Count 17.17 4.8-10.8 K/uL Red Blood Count 3.13 4.2-5.4 M/uL Hemoglobin 8.7 12.0-16.0 g/dL Hematocrit 27.3 37-47 % Mean Corpuscular Volume 87.2 80-100 fL Mean Corpuscular Hemoglobin 27.8 25-34 pg Mean Corpuscular Hemoglobin Concent 31.9 32-36 g/dl Platelet Count 477 130-400 K/uL Mean Platelet Volume 9.9 7.4-10.4 fL Neutrophils (%) (Auto) 83.0 % Lymphocytes (%) (Auto) 8.6 % Monocytes (%) (Auto) 5.5 % Eosinophils (%) (Auto) 0.5 % Basophils (%) (Auto) 0.2 % Neutrophils # (Auto) 14.28 1.4-6.5 K/uL Lymphocytes # (Auto) 1.47 1.2-3.4 K/uL Monocytes # (Auto) 0.94 0.11-0.59 K/uL Eosinophils # (Auto) 0.08 0-0.5 K/uL Basophils # (Auto) 0.03 0-0.2 K/uL RDW Standard Deviation 53.9 36.4-46.3 fL RDW Coefficient of Variation 16.6 11.5-14.5 % Immature Granulocyte % (Auto) 2.2 % Immature Granulocyte # (Auto) 0.37 0.00-0.02 K/uL Dohle Bodies 1+ Large Platelets 1+ Polychromasia 1+ Sodium Level 142 136-145 mmol/L Potassium Level 4.5 3.5-5.1 mmol/L Chloride Level 105 98-107 mmol/L Carbon Dioxide Level 34 21-32 mmol/L Anion Gap 3.0 3-11 mmol/L Blood Urea Nitrogen 15 7-18 mg/dl Creatinine 0.68 0.60-1.20 mg/dl Est Creatinine Clear Calc Drug Dose 78.2 ml/min Estimated GFR () 102.7 Estimated GFR (Non- 88.6 BUN/Creatinine Ratio 21.6 10-20 Random Glucose 104 70-99 mg/dl Calcium Level 7.3 8.5-10.1 mg/dl Phosphorus Level 3.3 2.5-4.9 mg/dl Vancomycin Level Trough 24.3 SEE COMMENT mcg/ml Test 08/08/16 08:41 Range/Units Bedside Glucose 106 70-90 mg/dl Assessment & Plan S/P right colectomy with ileostomy formation Pathology showed carcinoma, margins clear, 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
[2016-08-08 15:34] VITALS: BP 92/62; PULSE 81; TEMP 36.6; O2SAT 90
[2016-08-08] MEDS: VANCOMYCIN INJ 1,100 MG in SODIUM CHLORIDE 0.9% 250ML 250 ML IV SCH (17:58)
--- NOTE | 2016-08-08 19:52 | Progress Note ---
Medicine Progress Note Date & Time of Visit: August 08, 2016 at 19:52. Subjective seen sitting up in bed, sister at bedside states she didn't feel too good today had some nausea, abdominal pain poor appetite no dyspnea, cough no other symptoms Objective Last 8 Hrs Date Time Temp Pulse Resp B/P Pulse Ox O2 Delivery O2 Flow Rate FiO2 08/08/16 15:34 36.6 81 16 92/62 90 Room Air Physical Exam: General- oriented x 3, not in distress, speaks in sentences with no effort Eyes- anicteric Lungs- no rales/wheezes, clear breath sounds bilaterally Heart- normal rate, regular rhythm; no murmurs Abdomen- wound vac in place, non distended, soft, mild tenderness Extremities- no pretibial edema, no calf tenderness Neuro- alert, oriented x 3; no gross focal deficits Skin- warm & dry Laboratory Results: Last 24 Hours Test 08/07/16 20:49 08/08/16 03:30 08/08/16 08:41 08/08/16 12:44 Bedside Glucose 94 mg/dl 106 mg/dl 101 mg/dl White Blood Count 17.17 K/uL Red Blood Count 3.13 M/uL Hemoglobin 8.7 g/dL Hematocrit 27.3 % Mean Corpuscular Volume 87.2 fL Mean Corpuscular Hemoglobin 27.8 pg Mean Corpuscular Hemoglobin Concent 31.9 g/dl Platelet Count 477 K/uL Mean Platelet Volume 9.9 fL Neutrophils (%) (Auto) 83.0 % Lymphocytes (%) (Auto) 8.6 % Monocytes (%) (Auto) 5.5 % Eosinophils (%) (Auto) 0.5 % Basophils (%) (Auto) 0.2 % Neutrophils # (Auto) 14.28 K/uL Lymphocytes # (Auto) 1.47 K/uL Monocytes # (Auto) 0.94 K/uL Eosinophils # (Auto) 0.08 K/uL Basophils # (Auto) 0.03 K/uL RDW Standard Deviation 53.9 fL RDW Coefficient of Variation 16.6 % Immature Granulocyte % (Auto) 2.2 % Immature Granulocyte # (Auto) 0.37 K/uL Dohle Bodies 1+ Large Platelets 1+ Polychromasia 1+ Sodium Level 142 mmol/L Potassium Level 4.5 mmol/L Chloride Level 105 mmol/L Carbon Dioxide Level 34 mmol/L Anion Gap 3.0 mmol/L Blood Urea Nitrogen 15 mg/dl Creatinine 0.68 mg/dl Est Creatinine Clear Calc Drug Dose 78.2 ml/min Estimated GFR () 102.7 Estimated GFR (Non- 88.6 BUN/Creatinine Ratio 21.6 Random Glucose 104 mg/dl Calcium Level 7.3 mg/dl Phosphorus Level 3.3 mg/dl Vancomycin Level Trough 24.3 mcg/ml Test 08/08/16 17:34 Bedside Glucose 93 mg/dl Assessment & Plan 71 year old female with history of DM, HTN, COPD SEPTIC SHOCK SECONDARY TO COLONIC PERFORATION, RESOLVED S/P Emergent Exploratory Laparotomy, Bowel Resection, Creation of Colostomy, Left Salpingo-oophorectomy by Dr Powers 07/30/16 FUNGEMIA -- Abdominal Fluid: (+) E coli, moderate yeast repeat Blood cultures 08/01/16: (+) yeast in 2 bottles -- Post Op day 9 -- WBC increased over the weekend, although no fever, clinically appears improving -- repeat blood and urine cultures pending -- added Vancomycin 08/06/16 continued IV Imipenem, Caspofungin -- echo ordered as recommended by ID may need repeat CT abdomen if with no improvement ID on board -- continue D5 NSS as patient has poor appetite ANEMIA possible acute blood loss from colon perforation, post op state -- stable, monitor ACUTE RENAL FAILURE ON CKD STAGE III - RESOLVED RECENT HX OF UTI/BACTEREMIA Was discharged from hospital on 07/21/16 on IV Invanz and PO Amoxicillin for E coli and Enterococcus. 1/2 bottles grew E coli/PCN sensitive enterococcus -Was supposed to received IV Invanz via PICC line and PO amoxicillin for 14 days. PICC line was removed by Poultry Culler and central line placed -- continue IV Invanz, Caspofungin HTN -Diamox and lisinopril on hold. - continue IV fluids for now DM - hgb a1c 5.4 04/2016 -Holding oral agents and utilize SSI while hospitalized -ACHS -blood sugar COPD resumed Enoro Ellipta on Combivent -- wheezing resolved -- respiratory status stable HYPOTHYROIDISM -IV levothyroxine DVT PROPHYLAXIS Lovenox GI PROPHYLAXIS PPI - IV Thank you for this consultation. We will follow the patient with you during their hospital stay. You can reach a member of the [facility] Hospitalist Team 16/10 via pager @ . Current Inpatient Medications: Current Inpatient Medications Medications (Trade) Dose Ordered Sig/Kwabena Route Start Time Stop Time Status Last Admin Dose Admin Chlorhexidine Gluconate (Peridex Oral Soln) 15 ml BID MT 07/30/16 21:00 08/29/16 20:59 08/08/16 09:12 15 ML Glucose (Glucose 40% Gel) 15-30 GRAMS 15 GRAMS... UD PRN PO 07/30/16 14:45 08/29/16 14:44 Glucose (Glucose Chew Tab) 4-8 Tablets 4 Tabl... UD PRN PO 07/30/16 14:45 08/29/16 14:44 Dextrose (Dextrose 50% 50ML Syringe) 25-50ML OF 50% DW IV FOR... UD PRN IV 07/30/16 14:45 08/29/16 14:44 Glucagon 1 mg 1 mg UD PRN SQ 07/30/16 14:45 08/29/16 14:44 Levothyroxine Sodium 37.5 mcg/ Syringe 1.875 ml @ 2 mls/min DAILY@09 IV 07/31/16 09:00 08/30/16 08:59 08/08/16 09:00 2 MLS/MIN Caspofungin/ Sodium Chloride (Cancidas Inj/ Nss 250ml) 260 ml @ 250 mls/hr DAILY IV 08/01/16 09:00 08/31/16 08:59 08/08/16 08:47 250 MLS/HR Enoxaparin Sodium (Lovenox Inj) 40 mg QAM SQ 08/01/16 09:00 08/31/16 08:59 08/08/16 09:01 40 MG Enteral Nutritional Formula 1000 ml 1,000 ml UD PO 08/01/16 07:15 08/31/16 07:14 Future Hold 08/01/16 10:18 1,000 ML Acetaminophen/ Empty Bag (Ofirmev Iv/ Empty Iv Bag 100ml) 65 ml @ 260 mls/hr Q6H PRN IV 08/01/16 09:15 08/31/16 09:14 08/08/16 18:37 260 MLS/HR Metoclopramide HCl 10 mg 10 mg Q6H PRN IV 08/02/16 10:00 09/01/16 09:59 08/08/16 08:47 10 MG Famotidine/ Dextrose (Pepcid IV Inj/ D5 100ml) 102 ml @ 204 mls/hr Q12H IV 08/02/16 22:00 09/01/16 21:59 08/08/16 09:49 204 MLS/HR Albuterol/ Ipratropium (Combivent Respimat Inh) 1 puffs Q6 INH 08/05/16 21:00 09/04/16 20:59 08/08/16 17:57 1 PUFFS Albuterol/ Ipratropium 3 ml 3 ml Q6R PRN INH 08/04/16 19:30 09/03/16 19:29 Imipenem/ Cilastatin Sodium 500 mg/Dextrose 110 ml @ 100 mls/hr Q6H IV 08/06/16 10:00 08/16/16 09:59 08/08/16 16:07 100 MLS/HR Potassium Chloride/Dextrose/ Sod Cl (D5nss + 20meq KCl) 1,000 ml @ 75 mls/hr [id number] IV 08/06/16 11:30 09/05/16 10:59 08/08/16 17:56 75 MLS/HR Vancomycin HCl (Consult) 1 ea UD PRN N/A 08/06/16 10:56 09/05/16 10:55 Miscellaneous Information (Order Awaiting Action) 1 ea QS N/A 08/06/16 16:00 09/05/16 15:59 Fluticasone Propionate (Flonase Nasal [place]) 2 sprays DAILY MARI 08/07/16 09:00 09/06/16 08:59 08/08/16 09:01 2 SPRAYS Insulin Aspart (novoLOG ASPART) SLIDING SCALE ACHS SC 08/07/16 21:00 09/06/16 05:59 Hydromorphone HCl (Dilaudid Inj) 0.5 mg Q4H PRN IV 08/08/16 02:15 08/22/16 02:14 08/08/16 02:13 0.5 MG Ondansetron HCl (Zofran Inj) 4 mg Q6H PRN IV 08/08/16 06:00 09/07/16 05:59 08/08/16 18:10 4 MG Al Hydroxide/Mg Hydroxide 30 ml 30 ml QID PRN PO 08/08/16 10:30 09/07/16 10:29 Vancomycin HCl/ Sodium Chloride (Vancomycin Inj/ Nss 250ml) 272 ml @ 125 mls/hr Q12@0600,1800 IV 08/08/16 18:00 08/18/16 17:59 08/08/16 17:58 125 MLS/HR
[2016-08-08 22:51] VITALS: BP 113/68; PULSE 94; TEMP 36.3; O2SAT 91
[2016-08-09] MEDS: ONDANSETRON INJ 2 MG/ML 2 ML VIAL IV PRN (02:58)
[2016-08-09] MEDS: IMIPENEM/CILASTATIN IV 500 MG in DEXTROSE 5% 100ML 100 ML IV SCH ×3 (03:36→16:39)
[2016-08-09] MEDS: VANCOMYCIN INJ 1,100 MG in SODIUM CHLORIDE 0.9% 250ML 250 ML IV SCH ×2 (05:46→18:46)
[2016-08-09] MEDS: IPRATROPIUM BROMIDE/ALBUTEROL respimat INH INH SCH ×4 (05:46→23:59)
[2016-08-09] MEDS: D5NSS + 20MEQ KCL 1,000 ML IV SCH ×2 (05:47→19:50)
[2016-08-09] MEDS: METOCLOPRAMIDE HCL INJ 5 MG/ML 2 ML VIAL IV PRN (05:55)
--- NOTE | 2016-08-09 07:13 | Surgery Progress Note ---
Surgery Progress Note Date of Service August 09, 2016. Subjective + bowel movement (ostomy functioning), + nausea (Intermittent), + vomiting (had large emesis last night but no nausea this AM) Feels better today, denies pain Objective Vital Signs: Date Time Temp Pulse Resp B/P Pulse Ox O2 Delivery O2 Flow Rate FiO2 08/08/16 22:51 36.3 94 16 113/68 91 Room Air 08/08/16 20:10 Room Air 08/08/16 15:34 36.6 81 16 92/62 90 Room Air 08/08/16 10:20 Room Air 08/08/16 07:58 36.5 74 18 114/73 96 Room Air Physical Exam: MARIBEL drainage (MARIBEL #1: 5 cc ysterday, 5 cc last shift; MARIBEL #2: 595 cc yesterday, 290 cc last shift) Abdomen: normal bowel sounds, non distended, soft Incision(s): no erythema, findings (wound vac in place) Laboratory Results: Results Past 24 Hours Test 08/08/16 08:41 08/08/16 12:44 08/08/16 17:34 08/08/16 20:50 Range/Units Bedside Glucose 106 101 93 97 70-90 mg/dl Test 08/09/16 04:44 Range/Units Assessment & Plan S/P right colectomy with ileostomy formation Pathology showed carcinoma, margins clear, 1/12 lymph nodes positive, shared with patient last week Stable hemodynamically Ostomy output good, peristalsis has returned Has intermittent vomiting but otherwise tolerates full liquids Begin Boost Wound with some purulence, continue wound vac WBC pending Continue IV antibiotics Continue PT
[2016-08-09 07:15] VITALS: BP 106/67; PULSE 88; TEMP 36.3; O2SAT 85; O2SAT 96
[2016-08-09 07:57] LABS: HEMATOCRIT 27.5 % (37-47); MEAN CELL VOLUME 86.5 fL (80-100); MEAN CORPUSCULAR HEMOGLOBIN 27.7 pg (25-34); MEAN PLATELET VOLUME 9.9 fL (7.4-10.4); PLATELET COUNT 514 K/uL (130-400); RED BLOOD COUNT 3.18 M/uL (4.2-5.4); WHITE BLOOD COUNT 23.56 K/uL (4.8-10.8)
[2016-08-09 08:25] LABS: BASO % 0.2 %; BASO ABS # 0.05 K/uL (0-0.2); COMPLETE YES; EOS % 0.5 %; IG% 1.6 %; LYMPH % 7.1 %; LYMPH ABS # 1.67 K/uL (1.2-3.4); MONO % 4.6 %
[2016-08-09 08:30] LABS: BUN/CREATININE RATIO 31.4 (10-20); CREATININE 0.63 mg/dl (0.60-1.20); POTASSIUM 4.2 mmol/L (3.5-5.1)
[2016-08-09 08:31] LABS: PHOSPHORUS 3.3 mg/dl (2.5-4.9)
[2016-08-09 08:34] LABS: CALCIUM 7.1 mg/dl (8.5-10.1)
[2016-08-09] MEDS: CASPOFUNGIN INJ 50 MG in SODIUM CHLORIDE 0.9% 250ML 250 ML IV SCH (08:40)
--- NOTE | 2016-08-09 09:19 | ECHOCARDIOGRAM REPORT ---
*NOTICE TO RECEIVING CONSTITUTION PARTY AGENCY This information is strictly Confidential and protected under [place] law. [place] law prohibits you from making any further disclosure of this information unless further disclosure is expressly permitted by the written consent of the person to whom it pertains or is authorized by law. A general authorization for the release of medical or other information is not sufficient for this purpose. Hospital accepts no responsibility if the information is made available to any other person, INCLUDING THE PATIENT. Interpretation Summary * Name: LUIS STONE Study Date: 08/08/2016 02:45 PM BP: 114/73 mmHg * Patient Location: C.3E\S\E311\S\1 HR: 97 * : 1945 (M/d/yyyy) Gender: Female Height: 62 in * Age: 71 yrs Ethnicity: CA Weight: 189 lb * Ordering Physician: Marco A Valente * Referring Physician: Self, Referred * Performed By: Flory Rader RCS * * Reason For Study: R/O ENDOCARDITIS * BSA: 1.9 m2 * -- Conclusions -- * Normal LV chamber size with mild concentric LVH. * Hyperdynamic LV systolic function, EF >70%. * No segmental left ventricular wall motion abnormalities are noted. * Poorly visualized valvular structures. No significant stenosis or regurgitation by Doppler. * No valvular lesions identified within the scope of this limited imaging modality. Procedure Details * A complete two-dimensional transthoracic echocardiogram was performed (2D, M-mode, Doppler and color flow Doppler). Left Ventricle * The left ventricle is normal in size. * There is mild concentric left ventricular hypertrophy. * Ejection Fraction = >70 %. * The left ventricle is hyperdynamic. * No segmental left ventricular wall motion abnormalities are noted. * The left ventricular wall motion is normal. Right Ventricle * The right ventricular cavity size is normal (basal dimension <4.2 cm in right ventricular apical 4-chamber view). * The right ventricular systolic function is normal as assessed by tricuspid annular plane systolic excursion (TAPSE) (normal >1.5 cm). Atria * The left atrial size is normal. * Right atrial size is normal. * No ASD detected; PFO is not assessed. Mitral Valve * The mitral valve is normal in structure and function. Tricuspid Valve * The tricuspid valve is not well visualized. * There is no tricuspid stenosis. * No tricuspid regurgitation. Aortic Valve * The aortic valve is not well visualized. * No hemodynamically significant valvular aortic stenosis. * There is no significant aortic regurgitation. Pulmonic Valve * The pulmonary valve is not well seen, but the Doppler examination is normal without significant regurgitation or stenosis. Great Vessels * The aortic root is normal size. Pericardium/Pleural * There is no pericardial effusion. MMode 2D Measurements and Calculations IVSd 1.1 cm IVSs 1.3 cm LVIDd 4.5 cm LVIDs 3.5 cm LVPWd 0.97 cm LVPWs 1.6 cm IVS/LVPW 1.2 FS 23.0 % EDV(Teich) 91.8 ml ESV(Teich) 49.3 ml EF(Teich) 46.3 % EDV(cubed) 90.3 ml ESV(cubed) 41.2 ml EF(cubed) 54.3 % % IVS thick 18.0 % % LVPW thick 61.5 % LV mass(C)d 163.0 grams LV mass(C)dI 87.4 grams/m\S\2 LV mass(C)s 179.8 grams LV mass(C)sI 96.3 grams/m\S\2 SV(Teich) 42.4 ml SI(Teich) 22.7 ml/m\S\2 SV(cubed) 49.0 ml SI(cubed) 26.3 ml/m\S\2 Ao root diam 2.6 cm Ao root area 5.2 cm\S\2 LVOT diam 1.7 cm LVOT area 2.2 cm\S\2 LVAd ap4 27.9 cm\S\2 LVLd ap4 7.9 cm EDV(MOD-sp4) 79.2 ml EDV(sp4-el) 83.7 ml LVAs ap4 18.7 cm\S\2 LVLs ap4 6.3 cm ESV(MOD-sp4) 46.9 ml ESV(sp4-el) 47.3 ml EF(MOD-sp4) 40.8 % EF(sp4-el) 43.5 % LVAd ap2 20.5 cm\S\2 LVLd ap2 7.2 cm EDV(MOD-sp2) 48.6 ml EDV(sp2-el) 49.2 ml LVAs ap2 14.6 cm\S\2 LVLs ap2 6.2 cm ESV(MOD-sp2) 29.2 ml ESV(sp2-el) 29.5 ml EF(MOD-sp2) 39.9 % EF(sp2-el) 40.0 % LVLd %diff -9.64 % EDV(MOD-bp) 64.0 ml LVLs %diff -2.26 % ESV(MOD-bp) 36.8 ml EF(MOD-bp) 42.5 % SV(MOD-sp4) 32.3 ml SI(MOD-sp4) 17.3 ml/m\S\2 SV(MOD-sp2) 19.4 ml SI(MOD-sp2) 10.4 ml/m\S\2 SV(MOD-bp) 27.2 ml SI(MOD-bp) 14.6 ml/m\S\2 SV(sp4-el) 36.5 ml SI(sp4-el) 19.5 ml/m\S\2 SV(sp2-el) 19.7 ml SI(sp2-el) 10.5 ml/m\S\2 Doppler Measurements and Calculations MV E max anupam 89.5 cm/sec MV P1/2t max anupam 94.2 cm/sec MV P1/2t 96.0 msec MVA(P1/2t) 2.3 cm\S\2 MV dec slope 287.4 cm/sec\S\2 MV dec time 0.25 sec Ao V2 max 158.9 cm/sec Ao max PG 10.1 mmHg Ao max PG (full) 4.0 mmHg RODNEY(V,A) 1.7 cm\S\2 RODNEY(V,D) 1.7 cm\S\2 LV V1 max PG 6.1 mmHg LV V1 max 123.4 cm/sec
[2016-08-09] MEDS: INSULIN ASPART 100 UNITS/ML 3 ML PEN SC SCH ×4 (10:18→21:00)
[2016-08-09] MEDS: LEVOTHYROXINE SODIUM INJ 37.5 MCG in SYRINGE 0 ML IV SCH (10:19)
[2016-08-09] MEDS: FLUTICASONE PROPIONATE NA SPR 16 GM BTL NAE SCH (10:22)
[2016-08-09] MEDS: CHLORHEXIDINE GLUCONATE 0.12% 480 ML MT SCH ×2 (10:22→21:34)
[2016-08-09] MEDS: ENOXAPARIN 40 MG/0.4 ML SYR SQ SCH (10:23)
[2016-08-09] MEDS: FAMOTIDINE IV INJ 20 MG in DEXTROSE 5% 100ML 100 ML IV SCH ×2 (10:24→21:22)
[2016-08-09] MEDS: BOOST GLUCOSE CONTROL PO SCH ×2 (10:34→21:32)
[2016-08-09] MEDS: ACETAMINOPHEN IV 650 MG in EMPTY BAG 0 ML IV PRN (13:01)
[2016-08-09] MEDS ORDERED: OPTIRAY 320 IV PRN (14:00)
--- NOTE | 2016-08-09 15:52 | DIAGNOSTIC IMAGING REPORT ---
ABDOMEN AND PELVIS CT WITH IV AND ORAL CONTRAST CT DOSE: 1238.44 mGy.cm HISTORY: Postoperative pain increased leukocytosis, s/p ex lap with right hemicolectomy TECHNIQUE: Multiaxial CT images of the abdomen and pelvis were performed following the use of intravenous and oral contrast. COMPARISON STUDY: 08/04/2016 FINDINGS: Findings of general body wall anasarca persists. Small bowel and to lesser extent colonic distention of the prior study is somewhat diminished. Multiple drainage catheters are present. Infiltrative change within the mesentery is perhaps slightly diminished. Several fluid pockets within the right paracolic gutter region as well as inferior to the right hepatic lobe are considered stable. Findings of a right hemicolectomy are again noted. Kidneys show moderate cortical scarring but are negative for hydronephrosis. There is trace amount of air within the biliary or hepatic venous system area. No significant pneumatosis is identified. There is evidence for a small amount of air within the anterior rectus musculature in the right. This is not present on the prior study. Findings of an anterior wound dehiscences are again noted. IMPRESSION: 1. Mixed findings compared to the prior study. 2. Stable body wall anasarca. 3. Stable postoperative change with a moderate generalized improvement in the bowel pattern compared to the prior study. 4. Bowel distention on the prior study and bowel wall thickening are at least somewhat improved. 5. Interval development of a small amount of air within the rectus musculature of the right as well as what is potentially the hepatic venous system. This should be monitored closely as its source is not identified. If progressive, possibility of developing necrotizing fasciitis must be considered 6. No evidence for pneumatosis post right colectomy. 7. Several small fluid pockets in the right paracolic gutter region considered stable 8. This study remains negative for drainable abscess or collection. 9. Bibasilar effusions, atelectatic change moderately improved. Electronically signed by: Дмитрий Milian M.D. 08/09/2016 3:50 PM Dictated Date/Time: 08/09/2016 3:39 PM
[2016-08-09 15:56] VITALS: BP 113/73; PULSE 80; TEMP 36.6; O2SAT 100
--- NOTE | 2016-08-09 21:40 | Progress Note ---
Internal Med Progress Note Date of Service: August 09, 2016. pt seen at 2136 Provider Documentation: SUBJECTIVE: did not had any vomiting today afebrile vitals remains stable OBJECTIVE: Vital Signs-as noted below Exam: General-no apparent distress Lungs-diminished, no rales , or wheeze Heart-regular S1/S2 Abdomen-colostomy on rt lower quadrant functioning -pale yellow liquid in stoma bag , wound vac in mid abdomen + tenderness on upper abdomen above wound vac , Neuro-no focal neurological deficit Lab data as noted below. ASSESSMENT & PLAN: SEPTIC SHOCK SECONDARY TO COLONIC PERFORATION/COLON CA S/P Emergent Exploratory Laparotomy, Bowel Resection, Creation of Colostomy, Left Salpingo-oophorectomy by Dr Powers 07/30/16 post op day # 10 surgery following closely pathology shows : moderately differentiated colorectal adeno CA tumor invasion through the wall of colon and to the pericolonic fat Perforation of colon proximal to tumor Metastatic Adeno CA present in 1or 12 LN Examined surgical margin free of Neoplasm lab today shows worsening of Leukocytosis [address] abdomen /pelvis : stable post operative change with a moderate generalized improvement in bowel pattern compared to prior study Interval development of a small amount of air with in the recuts musculature of Rt as well in the hepatic venous system , -if progressive possibility of developing a necrotizing fascitis must be considered Study is negative for abscess or collection of fluids pt ordered for NPO except of Ice cips and sips was on Broad spectrum Abx -on Imipenem /Vanco will D/C Imipenem -change to Zosyn cont vancomycin ID Following closely will d/w ID regarding addition of clindamycin FUNGEMIA/POSITIVE YEAST CULTURE IN PERITONEAL FLUID -- Abdominal Fluid: (+) E coli, moderate yeast repeat Blood cultures 08/01/16: (+) yeast in 2 bottles -- WBC increased 23 K today -- repeat blood and urine cultures -negative growth CT abdomen finding as above IV Zosyn added for coverage of anaerobes /gram negative -may need to consider addition of clindamycin if clinically indicated ID on board -- added Vancomycin 08/06/16 -- echo ordered as recommended by ID Echo : Normal LV chamber size with mild concentric LVH. * Hyperdynamic LV systolic function, EF >70%. * No segmental left ventricular wall motion abnormalities are noted. * Poorly visualized valvular structures. No significant stenosis or regurgitation by Doppler. * No valvular lesions identified within the scope of this limited imaging modality. ANEMIA possible acute blood loss from colon perforation, post op state -- stable, monitor H&H ACUTE RENAL FAILURE ON CKD STAGE III - due to perforated viscus post op vol loss resolved follow PRP DM TYPE 2 - hgb a1c 5.4 04/2016 -cont insulin SSI HYPOTHYROIDISM -IV levothyroxine may change to oral when able to tolerate PO DVT PROPHYLAXIS Lovenox Sub q GI PROPHYLAXIS PPI - IV FULL CODE Thank you for this consultation. We will follow the patient with you during their hospital stay. You can reach a member of the [facility] Hospitalist Team 16/10 via pager @ . Vital Signs: Date Time Temp Pulse Resp B/P Pulse Ox O2 Delivery O2 Flow Rate FiO2 08/09/16 15:56 36.6 80 18 113/73 100 Room Air 08/09/16 07:16 Room Air 08/09/16 07:15 85 Room Air 08/09/16 07:15 36.3 88 18 106/67 96 Room Air 08/08/16 22:51 36.3 94 16 113/68 91 Room Air Lab Results: Results Past 24 Hours Test 08/09/16 00:00 08/09/16 08:09 08/09/16 12:14 08/09/16 17:07 Range/Units White Blood Count 23.56 4.8-10.8 K/uL Red Blood Count 3.18 4.2-5.4 M/uL Hemoglobin 8.8 12.0-16.0 g/dL Hematocrit 27.5 37-47 % Mean Corpuscular Volume 86.5 80-100 fL Mean Corpuscular Hemoglobin 27.7 25-34 pg Mean Corpuscular Hemoglobin Concent 32.0 32-36 g/dl Platelet Count 514 130-400 K/uL Mean Platelet Volume 9.9 7.4-10.4 fL Neutrophils (%) (Auto) 86.0 % Lymphocytes (%) (Auto) 7.1 % Monocytes (%) (Auto) 4.6 % Eosinophils (%) (Auto) 0.5 % Basophils (%) (Auto) 0.2 % Neutrophils # (Auto) 20.26 1.4-6.5 K/uL Lymphocytes # (Auto) 1.67 1.2-3.4 K/uL Monocytes # (Auto) 1.09 0.11-0.59 K/uL Eosinophils # (Auto) 0.11 0-0.5 K/uL Basophils # (Auto) 0.05 0-0.2 K/uL RDW Standard Deviation 52.7 36.4-46.3 fL RDW Coefficient of Variation 16.4 11.5-14.5 % Immature Granulocyte % (Auto) 1.6 % Immature Granulocyte # (Auto) 0.38 0.00-0.02 K/uL Red Blood Cell Morphology Unremarkable Sodium Level 137 136-145 mmol/L Potassium Level 4.2 3.5-5.1 mmol/L Chloride Level 101 98-107 mmol/L Carbon Dioxide Level 29 21-32 mmol/L Anion Gap 7.0 3-11 mmol/L Blood Urea Nitrogen 20 7-18 mg/dl Creatinine 0.63 0.60-1.20 mg/dl Est Creatinine Clear Calc Drug Dose 84.4 ml/min Estimated GFR () 105.3 Estimated GFR (Non- 90.9 BUN/Creatinine Ratio 31.4 10-20 Random Glucose 100 70-99 mg/dl Calcium Level 7.1 8.5-10.1 mg/dl Phosphorus Level 3.3 2.5-4.9 mg/dl Bedside Glucose 100 105 111 70-90 mg/dl Test 08/09/16 20:53 Range/Units Bedside Glucose 98 70-90 mg/dl
[2016-08-09] MEDS ORDERED: PIPERACILL/TAZOBAC IV 3.375 GM in DEXTROSE 5% 100ML 100 ML IV SCH (22:15)
[2016-08-09] MEDS ORDERED: PIPERACILL/TAZOBAC IV 3.375 GM in DEXTROSE 5% 100ML IV STA (22:26)
[2016-08-09] MEDS: HYDROmorphone INJ 1 MG/ML SYR IV PRN (22:27)
[2016-08-09] MEDS ORDERED: PIPERACILL/TAZOBAC CONSULT ACTIVE PRN (22:30)
[2016-08-10 00:40] VITALS: BP 94/51; PULSE 76; TEMP 36.3; O2SAT 92
[2016-08-10] MEDS ORDERED: PIPERACILL/TAZOBAC IV 3.375 GM in DEXTROSE 5% 100ML IV SCH (04:00)
[2016-08-10] MEDS ORDERED: NURSING VERBAL MED ORDER ONE ×2 (05:00→23:15)
[2016-08-10] MEDS ORDERED: VANCOMYCIN TROUGH ONE (05:30)
[2016-08-10] MEDS: INSULIN ASPART 100 UNITS/ML 3 ML PEN SC SCH ×3 (06:00→19:27)
[2016-08-10] MEDS: VANCOMYCIN INJ 1,100 MG in SODIUM CHLORIDE 0.9% 250ML 250 ML IV SCH ×2 (06:17→08:29)
[2016-08-10] MEDS: IPRATROPIUM BROMIDE/ALBUTEROL respimat INH INH SCH ×4 (06:18→23:38)
[2016-08-10] MEDS: UMECLIDINIUM VILANTEROL INH SCH (06:20)
[2016-08-10 06:54] LABS: HEMATOCRIT 26.5 % (37-47); MEAN CORPUSCULAR HEMOGLOBIN 26.6 pg (25-34); MEAN CORPUSCULAR HGB CONC 30.9 g/dl (32-36); MEAN PLATELET VOLUME 9.8 fL (7.4-10.4); PLATELET COUNT 562 K/uL (130-400); RED BLOOD COUNT 3.08 M/uL (4.2-5.4); WHITE BLOOD COUNT 17.05 K/uL (4.8-10.8)
[2016-08-10 07:19] LABS: BUN/CREATININE RATIO 25.3 (10-20); CALCIUM 7.2 mg/dl (8.5-10.1); CREATININE 0.69 mg/dl (0.60-1.20); PHOSPHORUS 3.3 mg/dl (2.5-4.9); POTASSIUM 4.1 mmol/L (3.5-5.1)
[2016-08-10 07:45] VITALS: BP 96/62; PULSE 81; TEMP 36.5; O2SAT 92
[2016-08-10 07:50] LABS: BASO % 0.2 %; BASO ABS # 0.04 K/uL (0-0.2); COMPLETE YES; ECHINOCYTES 1+; IG% 2.7 %; LYMPH % 10.6 %; MONO % 6.2 %; NEUT % 79.3 %
--- NOTE | 2016-08-10 08:02 | Surgery Progress Note ---
Surgery Progress Note Date of Service August 10, 2016. Subjective Post OP Day: 10 + bowel movement (ileostomy functioning), No nausea, No vomiting Objective Vital Signs: Date Time Temp Pulse Resp B/P Pulse Ox O2 Delivery O2 Flow Rate FiO2 08/10/16 07:45 36.5 81 16 96/62 92 Room Air 08/10/16 00:40 36.3 76 16 94/51 92 Room Air 08/09/16 23:50 Room Air 08/09/16 16:30 Room Air 08/09/16 15:56 36.6 80 18 113/73 100 Room Air Physical Exam: MARIBEL drainage (MARIBEL #1: 15 cc yesterday, 1cc last shift; MARIBEL #2: 710 cc yesterday, 170 cc last shift) Abdomen: normal bowel sounds, non tender, non distended, soft, + pertinent finding (wound vac in place) Laboratory Results: Results Past 24 Hours Test 08/09/16 08:09 08/09/16 12:14 08/09/16 17:07 08/09/16 20:53 Range/Units Bedside Glucose 100 105 111 98 70-90 mg/dl Test 08/10/16 05:57 08/10/16 06:10 Range/Units Bedside Glucose 98 70-90 mg/dl White Blood Count 17.05 4.8-10.8 K/uL Red Blood Count 3.08 4.2-5.4 M/uL Hemoglobin 8.2 12.0-16.0 g/dL Hematocrit 26.5 37-47 % Mean Corpuscular Volume 86.0 80-100 fL Mean Corpuscular Hemoglobin 26.6 25-34 pg Mean Corpuscular Hemoglobin Concent 30.9 32-36 g/dl Platelet Count 562 130-400 K/uL Mean Platelet Volume 9.8 7.4-10.4 fL Neutrophils (%) (Auto) 79.3 % Lymphocytes (%) (Auto) 10.6 % Monocytes (%) (Auto) 6.2 % Eosinophils (%) (Auto) 1.0 % Basophils (%) (Auto) 0.2 % Neutrophils # (Auto) 13.52 1.4-6.5 K/uL Lymphocytes # (Auto) 1.80 1.2-3.4 K/uL Monocytes # (Auto) 1.06 0.11-0.59 K/uL Eosinophils # (Auto) 0.17 0-0.5 K/uL Basophils # (Auto) 0.04 0-0.2 K/uL RDW Standard Deviation 52.2 36.4-46.3 fL RDW Coefficient of Variation 16.5 11.5-14.5 % Immature Granulocyte % (Auto) 2.7 % Immature Granulocyte # (Auto) 0.46 0.00-0.02 K/uL Echinocytes 1+ Sodium Level 137 136-145 mmol/L Potassium Level 4.1 3.5-5.1 mmol/L Chloride Level 102 98-107 mmol/L Carbon Dioxide Level 28 21-32 mmol/L Anion Gap 7.0 3-11 mmol/L Blood Urea Nitrogen 17 7-18 mg/dl Creatinine 0.69 0.60-1.20 mg/dl Est Creatinine Clear Calc Drug Dose 77.1 ml/min Estimated GFR () 102.2 Estimated GFR (Non- 88.2 BUN/Creatinine Ratio 25.3 10-20 Random Glucose 92 70-99 mg/dl Lactic Acid Level 2.0 0.4-2.0 mmol/L Calcium Level 7.2 8.5-10.1 mg/dl Phosphorus Level 3.3 2.5-4.9 mg/dl Vancomycin Level Trough 23.7 SEE COMMENT mcg/ml Assessment & Plan S/P right colectomy with ileostomy formation Pathology showed carcinoma, margins clear, 1/12 lymph nodes positive, shared with patient last week Stable hemodynamically Ostomy output good, peristalsis has returned No vomiting yesterday, try soft diet Continue Boost Wound with some purulence, continue wound vac WBC up again yesterday, today's pending CT scan reviewed, no obvious abscess Check for other reasons for increased WBC, gallbladder wall appears mild thickened, will get ultrasound of gallbladder Continue IV antibiotics, add Flagyl Continue PT
[2016-08-10] MEDS: D5NSS + 20MEQ KCL 1,000 ML IV SCH ×2 (08:30→19:22)
--- NOTE | 2016-08-10 09:44 | DIAGNOSTIC IMAGING REPORT ---
BILIARY ULTRASOUND CLINICAL HISTORY: Increasing white count. History of partial colectomy. COMPARISON STUDY: CT scan dated 08/09/2016 FINDINGS: The pancreas appears normal as visualized. No focal hepatic masses are visualized. There is trace perihepatic fluid. The gallbladder contains sludge and calculi. There is no gallbladder wall thickening. There is no ductal dilatation. The common bile duct measures 4 mm. There is no right-sided hydronephrosis. The technologist reports a negative sonographic Wang sign. IMPRESSION: 1. Gallbladder sludge and calculi. No evidence of ductal dilatation. Electronically signed by: Isaac Kumari M.D. 08/10/2016 9:43 AM Dictated Date/Time: 08/10/2016 9:42 AM
[2016-08-10] MEDS: CASPOFUNGIN INJ 50 MG in SODIUM CHLORIDE 0.9% 250ML 250 ML IV SCH (10:03)
[2016-08-10] MEDS: FAMOTIDINE IV INJ 20 MG in DEXTROSE 5% 100ML 100 ML IV SCH ×2 (10:03→22:42)
[2016-08-10] MEDS: ENOXAPARIN 40 MG/0.4 ML SYR SQ SCH (10:04)
[2016-08-10] MEDS: FLUTICASONE PROPIONATE NA SPR 16 GM BTL NAE SCH (10:04)
[2016-08-10] MEDS: CHLORHEXIDINE GLUCONATE 0.12% 480 ML MT SCH ×2 (10:05→21:17)
[2016-08-10] MEDS: LEVOTHYROXINE SODIUM INJ 37.5 MCG in SYRINGE 0 ML IV SCH (10:13)
--- NOTE | 2016-08-10 10:16 | Progress Note ---
Progress Note Date of Service August 10, 2016. Progress Note ATTENDING NOTE : reviewed pt's culture Abdominal wound culture on 07/30/16 : E .coli ESBL -resistant to Zosyn , sensitive to Primaxin Yeast -not gina Albicans Given Pt's CT abdomen finding yesterday 08/09/16 -abx was changed will D/c Zosyn -resistant to intraabdominal wound culture resume Primaxin Flagyl added for additional anaerobic coverage -persistent leukocytosis CT abdomen finding -D/w Surgery Dr Powers -clinically pt is stable recommend continued Medical management with IV abx as outlined above Gall bladder USG ordered to R/o possible cholecystis -shows no evidence of gall bladder wall thickening , no pericholecystic fluid , negative Wang's sign during sonographic eval -gall bladder stone and biliary sludge -No evidence of Cholecystitis cont medical management -follow daily CBC , and monitor vitals WBC improved today 23K to 17 K lactic acid level -wnl IVF increased to 100 ml /hr for borderline hypotension pharmacy updated regarding change of Abx on Day #10 of Caspofungin -will D/w ID regarding duration of antifungal tx diet can be resumed and advanced as tolerted
--- NOTE | 2016-08-10 11:21 | Progress Note ---
Subjective Date of Service: August 10, 2016. Subjective ct findings/gallbladder ultrasound findings noted. afebrile. abx changed yesterday, now back on imipenem secondary to 07/30 e. coli sensitivities. remains on vanco. repeat blood cultures negative. no plan for surgical intervention, remains with vac. tolerating po, tolerating abx. oob to chair. improving clinically, wbc decreased today. Problem List Medical Problems: (1) Closed head injury Status: Acute (2) Dehydration Status: Acute (3) Fall Status: Acute (4) Hypothermia Status: Acute (5) Perforated viscus Status: Acute (6) Perforation of cecum Status: Acute (7) Pressure ulcer Status: Acute (8) Rhabdomyolysis Status: Acute (9) Septic shock Status: Acute (10) UTI (urinary tract infection) Status: Acute Objective Vital Signs Date Time Temp Pulse Resp B/P Pulse Ox O2 Delivery O2 Flow Rate FiO2 08/10/16 07:45 36.5 81 16 96/62 92 Room Air 08/10/16 00:40 36.3 76 16 94/51 92 Room Air 08/09/16 23:50 Room Air 08/09/16 16:30 Room Air 08/09/16 15:56 36.6 80 18 113/73 100 Room Air Physical Exam General Appearance: WD/WN, no apparent distress Neck: supple Respiratory/Chest: normal breath sounds, no respiratory distress Abdomen: + pertinent finding (ostomy, vac) Neurologic/Psychiatric: alert, oriented x 3 Skin: normal color Laboratory Results Item Value Date Time Blood Culture - Preliminary Resulted 08/06/16 1108 Blood NO GROWTH TO DATE. Blood Culture - Preliminary Resulted 08/06/16 1100 Blood NO GROWTH TO DATE. Blood Culture - Final Complete 08/01/16 1007 Blood Romy Glabrata (T. Glabrata) Gram Stain - Final Complete 07/30/16 0000 Aspirate - Other Abdomen Last 24 Hours Test 08/09/16 12:14 08/09/16 17:07 08/09/16 20:53 08/10/16 05:57 Bedside Glucose 105 mg/dl 111 mg/dl 98 mg/dl 98 mg/dl Test 08/10/16 06:10 White Blood Count 17.05 K/uL Red Blood Count 3.08 M/uL Hemoglobin 8.2 g/dL Hematocrit 26.5 % Mean Corpuscular Volume 86.0 fL Mean Corpuscular Hemoglobin 26.6 pg Mean Corpuscular Hemoglobin Concent 30.9 g/dl Platelet Count 562 K/uL Mean Platelet Volume 9.8 fL Neutrophils (%) (Auto) 79.3 % Lymphocytes (%) (Auto) 10.6 % Monocytes (%) (Auto) 6.2 % Eosinophils (%) (Auto) 1.0 % Basophils (%) (Auto) 0.2 % Neutrophils # (Auto) 13.52 K/uL Lymphocytes # (Auto) 1.80 K/uL Monocytes # (Auto) 1.06 K/uL Eosinophils # (Auto) 0.17 K/uL Basophils # (Auto) 0.04 K/uL RDW Standard Deviation 52.2 fL RDW Coefficient of Variation 16.5 % Immature Granulocyte % (Auto) 2.7 % Immature Granulocyte # (Auto) 0.46 K/uL Echinocytes 1+ Sodium Level 137 mmol/L Potassium Level 4.1 mmol/L Chloride Level 102 mmol/L Carbon Dioxide Level 28 mmol/L Anion Gap 7.0 mmol/L Blood Urea Nitrogen 17 mg/dl Creatinine 0.69 mg/dl Est Creatinine Clear Calc Drug Dose 77.1 ml/min Estimated GFR () 102.2 Estimated GFR (Non- 88.2 BUN/Creatinine Ratio 25.3 Random Glucose 92 mg/dl Lactic Acid Level 2.0 mmol/L Calcium Level 7.2 mg/dl Phosphorus Level 3.3 mg/dl Vancomycin Level Trough 23.7 mcg/ml Assessment and Plan (1) Polymicrobial sepsis Assessment & Plan: continue abx, will stop vanco as no gpc found on repeat cultures. wbc improved today, continue to follow. No clear indication for hirsch as imipenem covers anaerobes. will continue to follow (2) Fungemia Assessment & Plan: will need 14 days caspo (3) Peritonitis (4) Perforated viscus
[2016-08-10] MEDS: IMIPENEM/CILASTATIN IV 500 MG in DEXTROSE 5% 100ML 100 ML IV SCH ×3 (12:06→23:39)
[2016-08-10] MEDS: METRONIDAZOLE 500MG / NSS IV SCH ×2 (12:06→21:17)
[2016-08-10 15:45] VITALS: BP 98/63; PULSE 71; TEMP 36.8; O2SAT 97
[2016-08-10] MEDS: HYDROmorphone INJ 1 MG/ML SYR IV PRN (19:56)
--- NOTE | 2016-08-10 22:19 | Progress Note ---
Internal Med Progress Note Date of Service: August 10, 2016. Provider Documentation: SUBJECTIVE: feels much better today no fever or abdominal pain ,no nausea diet advanced to full liquid -tolerating well OBJECTIVE: Vital Signs-as noted below Exam: General-no apparent distress Lungs-diminished, no rales , or wheeze Heart-regular S1/S2 Abdomen-colostomy on rt lower quadrant functioning -pale yellow liquid in stoma bag , wound vac in mid abdomen + tenderness on upper abdomen above wound vac , Neuro-no focal neurological deficit Lab data as noted below. ASSESSMENT & PLAN: SEPSIS SECONDARY TO COLONIC PERFORATION/COLON CA S/P Emergent Exploratory Laparotomy, Bowel Resection, Creation of Colostomy, Left Salpingo-oophorectomy by Dr Powers 07/30/16 post op day # 11 surgery following closely pathology shows : moderately differentiated colorectal adeno CA tumor invasion through the wall of colon and to the pericolonic fat Perforation of colon proximal to tumor Metastatic Adeno CA present in 1or 12 LN Examined surgical margin free of Neoplasm CT abdomen /pelvis : stable post operative change with a moderate generalized improvement in bowel pattern compared to prior study Interval development of a small amount of air with in the recuts musculature of Rt as well in the hepatic venous system , -if progressive possibility of developing a necrotizing fascitis must be considered Study is negative for abscess or collection of fluids D/W surgery -as pt remains clinically stable cont medical management with IV Abx pt will be continued on Primaxin ( abdominal wound drainage culture -ESBL resistant to Zosyn ) added Flagyl for additional anaerobic coverage lactic acid -wnl leukocytosis improving 23K -> 17K RUQ USG -negative for cholecystitis ID following ,appreciate input FUNGEMIA/POSITIVE YEAST CULTURE IN PERITONEAL FLUID -- Abdominal Fluid: (+) E coli, moderate yeast repeat Blood cultures 08/01/16: (+) yeast in 2 bottles continued caspofungin total 14 days -- echo ordered as recommended by ID Echo : Normal LV chamber size with mild concentric LVH. * Hyperdynamic LV systolic function, EF >70%. * No segmental left ventricular wall motion abnormalities are noted. * Poorly visualized valvular structures. No significant stenosis or regurgitation by Doppler. * No valvular lesions identified within the scope of this limited imaging modality. ANEMIA possible acute blood loss from colon perforation, post op state -- stable, monitor H&H ACUTE RENAL FAILURE ON CKD STAGE III - due to perforated viscus post op vol loss resolved follow PRP DM TYPE 2 - hgb a1c 5.4 04/2016 -cont insulin SSI HYPOTHYROIDISM -IV levothyroxine may change to oral when able to tolerate PO DVT PROPHYLAXIS moderate to high risk post op /minimum mobility /Colon CA Lovenox Sub q GI PROPHYLAXIS PPI - IV FULL CODE Thank you for this consultation. We will follow the patient with you during their hospital stay. You can reach a member of the [facility] Hospitalist Team 16/10 via pager @ . Vital Signs: Date Time Temp Pulse Resp B/P Pulse Ox O2 Delivery O2 Flow Rate FiO2 08/10/16 16:30 Room Air 08/10/16 15:45 36.8 71 18 98/63 97 Room Air 08/10/16 08:45 Room Air 08/10/16 07:45 36.5 81 16 96/62 92 Room Air 08/10/16 00:40 36.3 76 16 94/51 92 Room Air 08/09/16 23:50 Room Air Lab Results: Results Past 24 Hours Test 08/10/16 05:57 08/10/16 06:10 08/10/16 12:06 08/10/16 17:06 Range/Units Bedside Glucose 98 84 88 70-90 mg/dl White Blood Count 17.05 4.8-10.8 K/uL Red Blood Count 3.08 4.2-5.4 M/uL Hemoglobin 8.2 12.0-16.0 g/dL Hematocrit 26.5 37-47 % Mean Corpuscular Volume 86.0 80-100 fL Mean Corpuscular Hemoglobin 26.6 25-34 pg Mean Corpuscular Hemoglobin Concent 30.9 32-36 g/dl Platelet Count 562 130-400 K/uL Mean Platelet Volume 9.8 7.4-10.4 fL Neutrophils (%) (Auto) 79.3 % Lymphocytes (%) (Auto) 10.6 % Monocytes (%) (Auto) 6.2 % Eosinophils (%) (Auto) 1.0 % Basophils (%) (Auto) 0.2 % Neutrophils # (Auto) 13.52 1.4-6.5 K/uL Lymphocytes # (Auto) 1.80 1.2-3.4 K/uL Monocytes # (Auto) 1.06 0.11-0.59 K/uL Eosinophils # (Auto) 0.17 0-0.5 K/uL Basophils # (Auto) 0.04 0-0.2 K/uL RDW Standard Deviation 52.2 36.4-46.3 fL RDW Coefficient of Variation 16.5 11.5-14.5 % Immature Granulocyte % (Auto) 2.7 % Immature Granulocyte # (Auto) 0.46 0.00-0.02 K/uL Echinocytes 1+ Sodium Level 137 136-145 mmol/L Potassium Level 4.1 3.5-5.1 mmol/L Chloride Level 102 98-107 mmol/L Carbon Dioxide Level 28 21-32 mmol/L Anion Gap 7.0 3-11 mmol/L Blood Urea Nitrogen 17 7-18 mg/dl Creatinine 0.69 0.60-1.20 mg/dl Est Creatinine Clear Calc Drug Dose 77.1 ml/min Estimated GFR () 102.2 Estimated GFR (Non- 88.2 BUN/Creatinine Ratio 25.3 10-20 Random Glucose 92 70-99 mg/dl Lactic Acid Level 2.0 0.4-2.0 mmol/L Calcium Level 7.2 8.5-10.1 mg/dl Phosphorus Level 3.3 2.5-4.9 mg/dl Vancomycin Level Trough 23.7 SEE COMMENT mcg/ml
[2016-08-10 23:57] VITALS: BP 103/66; PULSE 78; TEMP 36.3; O2SAT 98
[2016-08-11] MEDS ORDERED: VANCOMYCIN INJ 1,250 MG in SODIUM CHLORIDE 0.9% 250ML 250 ML IV SCH ×2
[2016-08-11] MEDS: METRONIDAZOLE 500MG / NSS IV SCH ×2 (03:37→13:11)
[2016-08-11] MEDS: IMIPENEM/CILASTATIN IV 500 MG in DEXTROSE 5% 100ML 100 ML IV SCH ×3 (05:35→18:37)
[2016-08-11] MEDS: IPRATROPIUM BROMIDE/ALBUTEROL respimat INH INH SCH ×4 (05:35→18:34)
[2016-08-11] MEDS: UMECLIDINIUM VILANTEROL INH SCH (05:35)
[2016-08-11] MEDS: D5NSS + 20MEQ KCL 1,000 ML IV SCH (05:36)
[2016-08-11 07:12] LABS: HEMATOCRIT 24.7 % (37-47); MEAN CELL VOLUME 86.4 fL (80-100); MEAN CORPUSCULAR HGB CONC 32.4 g/dl (32-36); MEAN PLATELET VOLUME 9.8 fL (7.4-10.4); PLATELET COUNT 517 K/uL (130-400); RED BLOOD COUNT 2.86 M/uL (4.2-5.4); WHITE BLOOD COUNT 12.79 K/uL (4.8-10.8)
[2016-08-11 07:42] VITALS: BP 120/70; PULSE 80; TEMP 36.7; O2SAT 94
[2016-08-11 07:45] LABS: BUN/CREATININE RATIO 26.4 (10-20); CREATININE 0.51 mg/dl (0.60-1.20)
[2016-08-11] MEDS: BOOST VANILLA PO SCH ×6 (08:49→18:15)
[2016-08-11] MEDS: CASPOFUNGIN INJ 50 MG in SODIUM CHLORIDE 0.9% 250ML 250 ML IV SCH (08:49)
[2016-08-11] MEDS: INSULIN ASPART 100 UNITS/ML 3 ML PEN SC SCH ×4 (08:53→21:00)
[2016-08-11] MEDS: FLUTICASONE PROPIONATE NA SPR 16 GM BTL NAE SCH (08:55)
[2016-08-11] MEDS: CHLORHEXIDINE GLUCONATE 0.12% 480 ML MT SCH ×2 (08:56→21:35)
[2016-08-11] MEDS: LEVOTHYROXINE SODIUM INJ 37.5 MCG in SYRINGE 0 ML IV SCH (08:58)
[2016-08-11] MEDS: ACETAMINOPHEN IV 650 MG in EMPTY BAG 0 ML IV PRN (09:47)
--- NOTE | 2016-08-11 09:48 | Surgery Progress Note ---
Surgery Progress Note Date of Service August 11, 2016. Subjective Post OP Day: POD # 12 s/p ex lap, right hemicolectomy, right oophorectomy, formation of ileostomy and mucous fistula + bowel movement, + diet (full liquids), + feeling well, + flatus, + nausea ( slight nausea this morning, no vomiting), + pain controlled, No SOB, No chest pain Objective Vital Signs: Date Time Temp Pulse Resp B/P Pulse Ox O2 Delivery O2 Flow Rate FiO2 08/11/16 07:42 36.7 80 16 120/70 94 Room Air 08/10/16 23:59 Room Air 08/10/16 23:57 36.3 78 16 103/66 98 Room Air 08/10/16 16:30 Room Air 08/10/16 15:45 36.8 71 18 98/63 97 Room Air Physical Exam: JESS drainage (murky, cloudy, greyish, brown output of the right JESS drain, minimal drainage < 5 cc just in tubing , diluted serous drainage of right jess drain 160 cc from 7 am) General Appearance: WD/WN, no apparent distress Head: normocephalic, atraumatic Neck: trachea midline Respiratory/Chest: no respiratory distress, no accessory muscle use Abdomen: non tender, non distended, soft, no organomegaly, no pulsatile mass Incision(s): findings (Midline laparotomy wound with healthy granulation tissue , no necrosis. Superior tunneling about 7 cm compared to 11 cm a few days ago, about 3-4 cm depth of entire wound. Mucous fistula healthy tissue, ostomy without pink and functioning) Laboratory Results: Results Past 24 Hours Test 08/10/16 12:06 08/10/16 17:06 08/10/16 22:14 08/11/16 06:19 Range/Units Bedside Glucose 84 88 75 70-90 mg/dl White Blood Count 12.79 4.8-10.8 K/uL Red Blood Count 2.86 4.2-5.4 M/uL Hemoglobin 8.0 12.0-16.0 g/dL Hematocrit 24.7 37-47 % Mean Corpuscular Volume 86.4 80-100 fL Mean Corpuscular Hemoglobin 28.0 25-34 pg Mean Corpuscular Hemoglobin Concent 32.4 32-36 g/dl RDW Standard Deviation 52.5 36.4-46.3 fL RDW Coefficient of Variation 16.4 11.5-14.5 % Platelet Count 517 130-400 K/uL Mean Platelet Volume 9.8 7.4-10.4 fL Sodium Level 138 136-145 mmol/L Potassium Level 4.0 3.5-5.1 mmol/L Chloride Level 104 98-107 mmol/L Carbon Dioxide Level 26 21-32 mmol/L Anion Gap 8.0 3-11 mmol/L Blood Urea Nitrogen 13 7-18 mg/dl Creatinine 0.51 0.60-1.20 mg/dl Est Creatinine Clear Calc Drug Dose 104.3 ml/min Estimated GFR () 112.9 Estimated GFR (Non- 97.4 BUN/Creatinine Ratio 26.4 10-20 Random Glucose 82 70-99 mg/dl Calcium Level 7.0 8.5-10.1 mg/dl Test 08/11/16 07:56 Range/Units Bedside Glucose 103 70-90 mg/dl Assessment & Plan POD # 12 s/p ex lap, right hemicolectomy, right oophorectomy, ileostomy and mucous fistula formation - Pathology showing adenocarcinoma, patient aware 04/06 lymph nodes positive - wound vac alarmed last evening and removed, wound with healthy granulation tissue, superior tunneling decreasing 7 cm today (11 cm previously) - ostomy functioning - increased JESS output of left jess drain (160 cc from 7 am this morning) 480 yesterday, 710 day before - BUN/Creatinine within normal limits - adequate urine output - leukocytosis improving 12.79 today (17.05 yesterday) Plan: Advance diet to soft diet for lunch Add Boost TID Will send jess drain fluid for creatinine given increased output Continue wound vac and dressing changes Continue IV antibiotics Continue IV fluids when antibiotics not running Repeat am labs continue PT I have discussed this patient with Dr. Powers who is in agreement with above stated findings and treatment plan.
[2016-08-11] MEDS: ENOXAPARIN 40 MG/0.4 ML SYR SQ SCH (10:31)
[2016-08-11] MEDS: FAMOTIDINE IV INJ 20 MG in DEXTROSE 5% 100ML 100 ML IV SCH ×2 (10:31→21:35)
--- NOTE | 2016-08-11 10:38 | Progress Note ---
Subjective Date of Service: August 11, 2016. Subjective wbc improved to 12 today, tolerating abx. tolerating po, remains afebrile. repeat blood cultures negative, vanco stopped yesterday. Problem List Medical Problems: (1) Closed head injury Status: Acute (2) Dehydration Status: Acute (3) Fall Status: Acute (4) Hypothermia Status: Acute (5) Perforated viscus Status: Acute (6) Perforation of cecum Status: Acute (7) Pressure ulcer Status: Acute (8) Rhabdomyolysis Status: Acute (9) Septic shock Status: Acute (10) UTI (urinary tract infection) Status: Acute Objective Vital Signs Date Time Temp Pulse Resp B/P Pulse Ox O2 Delivery O2 Flow Rate FiO2 08/11/16 07:42 36.7 80 16 120/70 94 Room Air 08/11/16 07:40 Room Air 08/10/16 23:59 Room Air 08/10/16 23:57 36.3 78 16 103/66 98 Room Air 08/10/16 16:30 Room Air 08/10/16 15:45 36.8 71 18 98/63 97 Room Air Laboratory Results Item Value Date Time Blood Culture - Final Complete 08/01/16 1007 Blood Romy Glabrata (T. Glabrata) Blood Culture - Final Complete 08/01/16 0957 Blood Romy Glabrata (T. Glabrata) Blood Culture - Preliminary Resulted 08/06/16 1108 Blood NO GROWTH TO DATE. Blood Culture - Preliminary Resulted 08/06/16 1100 Blood NO GROWTH TO DATE. Gram Stain - Final Complete 07/30/16 0000 Aspirate - Other Abdomen Last 24 Hours Test 08/10/16 12:06 08/10/16 17:06 08/10/16 22:14 08/11/16 06:19 Bedside Glucose 84 mg/dl 88 mg/dl 75 mg/dl White Blood Count 12.79 K/uL Red Blood Count 2.86 M/uL Hemoglobin 8.0 g/dL Hematocrit 24.7 % Mean Corpuscular Volume 86.4 fL Mean Corpuscular Hemoglobin 28.0 pg Mean Corpuscular Hemoglobin Concent 32.4 g/dl RDW Standard Deviation 52.5 fL RDW Coefficient of Variation 16.4 % Platelet Count 517 K/uL Mean Platelet Volume 9.8 fL Sodium Level 138 mmol/L Potassium Level 4.0 mmol/L Chloride Level 104 mmol/L Carbon Dioxide Level 26 mmol/L Anion Gap 8.0 mmol/L Blood Urea Nitrogen 13 mg/dl Creatinine 0.51 mg/dl Est Creatinine Clear Calc Drug Dose 104.3 ml/min Estimated GFR () 112.9 Estimated GFR (Non- 97.4 BUN/Creatinine Ratio 26.4 Random Glucose 82 mg/dl Calcium Level 7.0 mg/dl Test 08/11/16 07:56 08/11/16 10:03 Bedside Glucose 103 mg/dl Assessment and Plan (1) Polymicrobial sepsis Assessment & Plan: continue abx, will stop vanco as no gpc found on repeat cultures. wbc improved today, continue to follow. No clear indication for hirsch as imipenem covers anaerobes. will continue to follow, would give 14 days post op improving, ok for d/c when medically stable (2) Fungemia Assessment & Plan: will need 14 days caspo (3) Peritonitis (4) Perforated viscus
[2016-08-11 16:15] VITALS: BP 107/76; PULSE 81; TEMP 36.7; O2SAT 96
--- NOTE | 2016-08-11 20:44 | Progress Note ---
Internal Med Progress Note Date of Service: August 11, 2016. Provider Documentation: SUBJECTIVE: much better today remains afebrile wbc improved to 12 today, OBJECTIVE: Vital Signs-as noted below Exam: General-no apparent distress Lungs-diminished, no rales , or wheeze Heart-regular S1/S2 Abdomen-colostomy on rt lower quadrant functioning -pale yellow liquid in stoma bag , wound vac in mid abdomen + tenderness on upper abdomen above wound vac , Neuro-no focal neurological deficit Lab data as noted below. ASSESSMENT & PLAN: SEPSIS SECONDARY TO COLONIC PERFORATION/COLON CA WBC improved to 12 K today afebrile repeat blood cultures been negative IV Vancomycin D/miguelina as initial culture was + ve for gram negative bacteria pt will need total 14 days of Imipenem tx post surgery Appreciate input form ID S/P Emergent Exploratory Laparotomy, Bowel Resection, Creation of Colostomy, Left Salpingo-oophorectomy by Dr Powers 07/30/16 post op day # 12 surgery following closely pathology shows : moderately differentiated colorectal adeno CA tumor invasion through the wall of colon and to the pericolonic fat Perforation of colon proximal to tumor Metastatic Adeno CA present in 1or 12 LN Examined surgical margin free of Neoplasm CT abdomen /pelvis : stable post operative change with a moderate generalized improvement in bowel pattern compared to prior study Interval development of a small amount of air with in the recuts musculature of Rt as well in the hepatic venous system , -if progressive possibility of developing a necrotizing fascitis must be considered Study is negative for abscess or collection of fluids D/W surgery -as pt remains clinically stable cont medical management with IV Abx pt will be continued on Primaxin ( abdominal wound drainage culture -ESBL resistant to Zosyn ) lactic acid -wnl leukocytosis improving 23K -> 17K -> 12K RUQ USG -negative for cholecystitis ID following ,appreciate input FUNGEMIA/POSITIVE YEAST CULTURE IN PERITONEAL FLUID -- Abdominal Fluid: (+) E coli, moderate yeast repeat Blood cultures 08/01/16: (+) yeast in 2 bottles continued caspofungin total 14 days -- echo ordered as recommended by ID Echo : Normal LV chamber size with mild concentric LVH. * Hyperdynamic LV systolic function, EF >70%. * No segmental left ventricular wall motion abnormalities are noted. * Poorly visualized valvular structures. No significant stenosis or regurgitation by Doppler. * No valvular lesions identified within the scope of this limited imaging modality. ANEMIA possible acute blood loss from colon perforation, post op state -- stable, monitor H&H ACUTE RENAL FAILURE ON CKD STAGE III - due to perforated viscus post op vol loss resolved follow PRP DM TYPE 2 - hgb a1c 5.4 04/2016 -cont insulin SSI HYPOTHYROIDISM -IV levothyroxine may change to oral when able to tolerate PO DVT PROPHYLAXIS moderate to high risk post op /minimum mobility /Colon CA Lovenox Sub q GI PROPHYLAXIS PPI - IV FULL CODE Thank you for this consultation. We will follow the patient with you during their hospital stay. You can reach a member of the [facility] Hospitalist Team 16/10 via pager @ [phone]. Vital Signs: Date Time Temp Pulse Resp B/P Pulse Ox O2 Delivery O2 Flow Rate FiO2 08/11/16 16:15 36.7 81 18 107/76 96 Room Air 08/11/16 07:42 36.7 80 16 120/70 94 Room Air 08/11/16 07:40 Room Air 08/10/16 23:59 Room Air 08/10/16 23:57 36.3 78 16 103/66 98 Room Air Lab Results: Results Past 24 Hours Test 08/10/16 22:14 08/11/16 00:00 08/11/16 06:19 08/11/16 07:56 Range/Units Bedside Glucose 75 103 70-90 mg/dl Body Fluid Creatinine 0.54 mg/dl White Blood Count 12.79 4.8-10.8 K/uL Red Blood Count 2.86 4.2-5.4 M/uL Hemoglobin 8.0 12.0-16.0 g/dL Hematocrit 24.7 37-47 % Mean Corpuscular Volume 86.4 80-100 fL Mean Corpuscular Hemoglobin 28.0 25-34 pg Mean Corpuscular Hemoglobin Concent 32.4 32-36 g/dl RDW Standard Deviation 52.5 36.4-46.3 fL RDW Coefficient of Variation 16.4 11.5-14.5 % Platelet Count 517 130-400 K/uL Mean Platelet Volume 9.8 7.4-10.4 fL Sodium Level 138 136-145 mmol/L Potassium Level 4.0 3.5-5.1 mmol/L Chloride Level 104 98-107 mmol/L Carbon Dioxide Level 26 21-32 mmol/L Anion Gap 8.0 3-11 mmol/L Blood Urea Nitrogen 13 7-18 mg/dl Creatinine 0.51 0.60-1.20 mg/dl Est Creatinine Clear Calc Drug Dose 104.3 ml/min Estimated GFR () 112.9 Estimated GFR (Non- 97.4 BUN/Creatinine Ratio 26.4 10-20 Random Glucose 82 70-99 mg/dl Calcium Level 7.0 8.5-10.1 mg/dl Test 08/11/16 12:10 08/11/16 17:32 Range/Units Bedside Glucose 91 100 70-90 mg/dl
[2016-08-11] MEDS: ONDANSETRON INJ 2 MG/ML 2 ML VIAL IV PRN (21:33)
[2016-08-11 22:58] VITALS: BP 105/71; PULSE 84; TEMP 36.5; O2SAT 90
[2016-08-12] MEDS: IPRATROPIUM BROMIDE/ALBUTEROL respimat INH INH SCH ×5 (00:02→23:21)
[2016-08-12] MEDS: UMECLIDINIUM VILANTEROL INH SCH (05:31)
[2016-08-12] MEDS: ONDANSETRON INJ 2 MG/ML 2 ML VIAL IV PRN (06:33)
[2016-08-12 06:48] LABS: HEMATOCRIT 25.6 % (37-47); MEAN CORPUSCULAR HEMOGLOBIN 26.9 pg (25-34); MEAN CORPUSCULAR HGB CONC 31.6 g/dl (32-36); MEAN PLATELET VOLUME 9.4 fL (7.4-10.4); PLATELET COUNT 563 K/uL (130-400); RED BLOOD COUNT 3.01 M/uL (4.2-5.4); WHITE BLOOD COUNT 14.48 K/uL (4.8-10.8)
[2016-08-12 07:11] LABS: CALCIUM 6.9 mg/dl (8.5-10.1); CREATININE 0.71 mg/dl (0.60-1.20); POTASSIUM 4.3 mmol/L (3.5-5.1)
[2016-08-12 07:14] VITALS: BP 96/61; PULSE 80; TEMP 36.7; O2SAT 95
[2016-08-12] MEDS ORDERED: VANCOMYCIN TROUGH SCH (07:30)
--- NOTE | 2016-08-12 08:48 | Surgery Progress Note ---
Surgery Progress Note Date of Service August 12, 2016. Subjective Post OP Day: 13 + ambulating (OK), + diet (regular), + feeling well, + flatus, No complaints, No nausea, No vomiting Objective Vital Signs: Date Time Temp Pulse Resp B/P Pulse Ox O2 Delivery O2 Flow Rate FiO2 08/12/16 07:14 36.7 80 16 96/61 95 Room Air 08/11/16 23:55 Room Air 08/11/16 22:58 36.5 84 16 105/71 90 Room Air 08/11/16 16:15 36.7 81 18 107/76 96 Room Air 08/11/16 15:45 Room Air Physical Exam: MARIBEL drainage (serous) General Appearance: WD/WN, no apparent distress Head: normocephalic, atraumatic Neck: supple, trachea midline Respiratory/Chest: lungs clear Cardiovascular: regular rate, rhythm Abdomen: normal bowel sounds, soft, + tenderness (mild), + pertinent finding ( open wound) Extremities: non-tender, no pedal edema Laboratory Results: Results Past 24 Hours Test 08/11/16 12:10 08/11/16 17:32 08/11/16 21:15 08/12/16 06:16 Range/Units Bedside Glucose 91 100 96 70-90 mg/dl White Blood Count 14.48 4.8-10.8 K/uL Red Blood Count 3.01 4.2-5.4 M/uL Hemoglobin 8.1 12.0-16.0 g/dL Hematocrit 25.6 37-47 % Mean Corpuscular Volume 85.0 80-100 fL Mean Corpuscular Hemoglobin 26.9 25-34 pg Mean Corpuscular Hemoglobin Concent 31.6 32-36 g/dl RDW Standard Deviation 50.5 36.4-46.3 fL RDW Coefficient of Variation 16.4 11.5-14.5 % Platelet Count 563 130-400 K/uL Mean Platelet Volume 9.4 7.4-10.4 fL Sodium Level 139 136-145 mmol/L Potassium Level 4.3 3.5-5.1 mmol/L Chloride Level 105 98-107 mmol/L Carbon Dioxide Level 27 21-32 mmol/L Anion Gap 7.0 3-11 mmol/L Blood Urea Nitrogen 12 7-18 mg/dl Creatinine 0.71 0.60-1.20 mg/dl Est Creatinine Clear Calc Drug Dose 74.9 ml/min Estimated GFR () 100.0 Estimated GFR (Non- 86.3 BUN/Creatinine Ratio 17.0 10-20 Random Glucose 83 70-99 mg/dl Calcium Level 6.9 8.5-10.1 mg/dl Test 08/12/16 08:10 Range/Units Bedside Glucose 78 70-90 mg/dl Assessment & Plan s/p ex lap w/right hemicolectomy/right SO -WBC slightly up -wound looks good -abx -PT -taking po well
[2016-08-12] MEDS: INSULIN ASPART 100 UNITS/ML 3 ML PEN SC SCH ×4 (09:10→20:41)
[2016-08-12] MEDS: CASPOFUNGIN INJ 50 MG in SODIUM CHLORIDE 0.9% 250ML 250 ML IV SCH (09:11)
[2016-08-12] MEDS: BOOST VANILLA PO SCH ×6 (09:12→18:12)
[2016-08-12] MEDS: CHLORHEXIDINE GLUCONATE 0.12% 480 ML MT SCH ×2 (09:12→21:11)
[2016-08-12] MEDS: FLUTICASONE PROPIONATE NA SPR 16 GM BTL NAE SCH (09:12)
[2016-08-12] MEDS: ENOXAPARIN 40 MG/0.4 ML SYR SQ SCH (09:13)
[2016-08-12] MEDS: LEVOTHYROXINE SODIUM INJ 37.5 MCG in SYRINGE 0 ML IV SCH (10:26)
[2016-08-12] MEDS: FAMOTIDINE IV INJ 20 MG in DEXTROSE 5% 100ML 100 ML IV SCH ×2 (10:27→21:50)
[2016-08-12 15:12] VITALS: BP 105/63; PULSE 88; TEMP 36.7; O2SAT 98
--- NOTE | 2016-08-12 22:21 | Progress Note ---
Internal Med Progress Note Date of Service: August 12, 2016. Provider Documentation: SUBJECTIVE: tolerating diet well no complain of abdominal pain or discomfort no nausea colostomy working appropriately OBJECTIVE: Vital Signs-as noted below Exam: General-no apparent distress Lungs-diminished, no rales , or wheeze Heart-regular S1/S2 Abdomen-colostomy on rt lower quadrant functioning -pale yellow liquid in stoma bag , wound vac in mid abdomen + tenderness on upper abdomen above wound vac , Neuro-no focal neurological deficit Lab data as noted below. ASSESSMENT & PLAN: SEPSIS SECONDARY TO COLONIC PERFORATION/COLON CA WBC 12K -> 14 K no fever or chills repeat blood cultures been negative IV Vancomycin D/miguelina as initial culture was + ve for gram negative bacteria pt will need total 14 days of Imipenem tx post surgery Appreciate input form ID S/P Emergent Exploratory Laparotomy, Bowel Resection, Creation of Colostomy, Left Salpingo-oophorectomy by Dr Powers 07/30/16 post op day # 13 surgery following closely pathology shows : moderately differentiated colorectal adeno CA tumor invasion through the wall of colon and to the pericolonic fat Perforation of colon proximal to tumor Metastatic Adeno CA present in 1or 12 LN Examined surgical margin free of Neoplasm CT abdomen /pelvis : stable post operative change with a moderate generalized improvement in bowel pattern compared to prior study Interval development of a small amount of air with in the recuts musculature of Rt as well in the hepatic venous system , -if progressive possibility of developing a necrotizing fascitis must be considered Study is negative for abscess or collection of fluids D/W surgery -as pt remains clinically stable cont medical management with IV Abx pt will be continued on Primaxin ( abdominal wound drainage culture -ESBL resistant to Zosyn ) lactic acid -wnl leukocytosis persists 23K -> 17K -> 12K -> 14 K pt is improving clinically able to tolerate diet , appetite has improved, RUQ USG -negative for cholecystitis ID following ,appreciate input FUNGEMIA/POSITIVE YEAST CULTURE IN PERITONEAL FLUID -- Abdominal Fluid: (+) E coli, moderate yeast repeat Blood cultures 08/01/16: (+) yeast in 2 bottles continued caspofungin total 14 days -- echo ordered as recommended by ID Echo : Normal LV chamber size with mild concentric LVH. * Hyperdynamic LV systolic function, EF >70%. * No segmental left ventricular wall motion abnormalities are noted. * Poorly visualized valvular structures. No significant stenosis or regurgitation by Doppler. * No valvular lesions identified within the scope of this limited imaging modality. ANEMIA possible acute blood loss from colon perforation, post op state -- Hb ~ 8 monitor H&H ACUTE RENAL FAILURE ON CKD STAGE III - due to perforated viscus post op vol loss resolved follow PRP DM TYPE 2 - hgb a1c 5.4 04/2016 -cont insulin SSI HYPOTHYROIDISM -IV levothyroxine will change oral as able to tolerate PO DVT PROPHYLAXIS moderate to high risk post op /minimum mobility /Colon CA Lovenox Sub q GI PROPHYLAXIS PPI - will change to PO FULL CODE Thank you for this consultation. We will follow the patient with you during their hospital stay. You can reach a member of the [facility] Hospitalist Team 16/10 via pager @ [phone]. Vital Signs: Date Time Temp Pulse Resp B/P Pulse Ox O2 Delivery O2 Flow Rate FiO2 08/12/16 16:00 Room Air 08/12/16 15:12 36.7 88 16 105/63 98 Room Air 08/12/16 08:05 Room Air 08/12/16 07:14 36.7 80 16 96/61 95 Room Air 08/11/16 23:55 Room Air 08/11/16 22:58 36.5 84 16 105/71 90 Room Air Lab Results: Results Past 24 Hours Test 08/12/16 06:16 08/12/16 08:10 08/12/16 11:53 08/12/16 17:08 Range/Units White Blood Count 14.48 4.8-10.8 K/uL Red Blood Count 3.01 4.2-5.4 M/uL Hemoglobin 8.1 12.0-16.0 g/dL Hematocrit 25.6 37-47 % Mean Corpuscular Volume 85.0 80-100 fL Mean Corpuscular Hemoglobin 26.9 25-34 pg Mean Corpuscular Hemoglobin Concent 31.6 32-36 g/dl RDW Standard Deviation 50.5 36.4-46.3 fL RDW Coefficient of Variation 16.4 11.5-14.5 % Platelet Count 563 130-400 K/uL Mean Platelet Volume 9.4 7.4-10.4 fL Sodium Level 139 136-145 mmol/L Potassium Level 4.3 3.5-5.1 mmol/L Chloride Level 105 98-107 mmol/L Carbon Dioxide Level 27 21-32 mmol/L Anion Gap 7.0 3-11 mmol/L Blood Urea Nitrogen 12 7-18 mg/dl Creatinine 0.71 0.60-1.20 mg/dl Est Creatinine Clear Calc Drug Dose 74.9 ml/min Estimated GFR () 100.0 Estimated GFR (Non- 86.3 BUN/Creatinine Ratio 17.0 10-20 Random Glucose 83 70-99 mg/dl Calcium Level 6.9 8.5-10.1 mg/dl Bedside Glucose 78 103 87 70-90 mg/dl Test 08/12/16 20:25 Range/Units Bedside Glucose 107 70-90 mg/dl
[2016-08-12 23:14] VITALS: BP 93/62; PULSE 106; TEMP 36.3; O2SAT 96
[2016-08-13] MEDS: LEVOTHYROXINE 75 MCG TAB PO SCH (05:25)
[2016-08-13] MEDS: IPRATROPIUM BROMIDE/ALBUTEROL respimat INH INH SCH ×4 (05:25→23:34)
[2016-08-13] MEDS: UMECLIDINIUM VILANTEROL INH SCH (05:25)
[2016-08-13 07:18] LABS: MEAN CELL VOLUME 84.6 fL (80-100); MEAN CORPUSCULAR HEMOGLOBIN 27.2 pg (25-34); MEAN CORPUSCULAR HGB CONC 32.2 g/dl (32-36); MEAN PLATELET VOLUME 9.1 fL (7.4-10.4); PLATELET COUNT 512 K/uL (130-400); RED BLOOD COUNT 2.72 M/uL (4.2-5.4); WHITE BLOOD COUNT 13.96 K/uL (4.8-10.8)
[2016-08-13 07:23] VITALS: BP 100/64; PULSE 80; TEMP 36.8; O2SAT 95
[2016-08-13 07:24] LABS: BUN/CREATININE RATIO 17.2 (10-20); CALCIUM 7.2 mg/dl (8.5-10.1); CREATININE 0.71 mg/dl (0.60-1.20); POTASSIUM 4.4 mmol/L (3.5-5.1)
[2016-08-13] MEDS: CASPOFUNGIN INJ 50 MG in SODIUM CHLORIDE 0.9% 250ML 250 ML IV SCH (08:29)
[2016-08-13] MEDS: CHLORHEXIDINE GLUCONATE 0.12% 480 ML MT SCH ×2 (08:31→21:10)
[2016-08-13] MEDS: FLUTICASONE PROPIONATE NA SPR 16 GM BTL NAE SCH (08:32)
[2016-08-13] MEDS: LACTOBACILLUS ACIDOPHILUS (FLORANEX) TAB PO SCH ×3 (08:32→21:12)
[2016-08-13] MEDS: MULTIVITAMIN TAB PO SCH (08:33)
[2016-08-13] MEDS: SERTRALINE HCL 50 MG TAB PO SCH (08:33)
[2016-08-13] MEDS: ASCORBIC ACID 500 MG TAB PO SCH ×2 (08:33→21:10)
[2016-08-13] MEDS: PANTOprazole SOD 40 MG TAB PO SCH (08:33)
[2016-08-13] MEDS: CETIRIZINE HCL 10 MG TAB PO SCH (08:34)
[2016-08-13] MEDS: ENOXAPARIN 40 MG/0.4 ML SYR SQ SCH (08:35)
[2016-08-13] MEDS: INSULIN ASPART 100 UNITS/ML 3 ML PEN SC SCH ×4 (08:42→21:00)
[2016-08-13] MEDS: BOOST VANILLA PO SCH ×6 (08:46→17:52)
--- NOTE | 2016-08-13 12:06 | Surgery Progress Note ---
Surgery Progress Note Date of Service August 13, 2016. Subjective Post OP Day: 14 + bowel movement, + diet (regular), + feeling well, + flatus, No complaints, No nausea, No vomiting Objective Vital Signs: Date Time Temp Pulse Resp B/P Pulse Ox O2 Delivery O2 Flow Rate FiO2 08/13/16 09:49 Room Air 08/13/16 07:23 36.8 80 17 100/64 95 Room Air 08/12/16 23:15 Room Air 08/12/16 23:14 36.3 106 16 93/62 96 Room Air 08/12/16 16:00 Room Air 08/12/16 15:12 36.7 88 16 105/63 98 Room Air Physical Exam: MARIBEL drainage (drainage slowing) General Appearance: WD/WN, no apparent distress Head: normocephalic, atraumatic Neck: supple Respiratory/Chest: lungs clear Cardiovascular: regular rate, rhythm Abdomen: normal bowel sounds, non tender, non distended, soft, + pertinent finding (Wound vac in place) Incision(s): findings (ostomy pink and patent) Extremities: non-tender, no pedal edema Laboratory Results: Results Past 24 Hours Test 08/12/16 17:08 08/12/16 20:25 08/13/16 06:17 08/13/16 08:07 Range/Units Bedside Glucose 87 107 86 70-90 mg/dl White Blood Count 13.96 4.8-10.8 K/uL Red Blood Count 2.72 4.2-5.4 M/uL Hemoglobin 7.4 12.0-16.0 g/dL Hematocrit 23.0 37-47 % Mean Corpuscular Volume 84.6 80-100 fL Mean Corpuscular Hemoglobin 27.2 25-34 pg Mean Corpuscular Hemoglobin Concent 32.2 32-36 g/dl RDW Standard Deviation 50.9 36.4-46.3 fL RDW Coefficient of Variation 16.5 11.5-14.5 % Platelet Count 512 130-400 K/uL Mean Platelet Volume 9.1 7.4-10.4 fL Sodium Level 140 136-145 mmol/L Potassium Level 4.4 3.5-5.1 mmol/L Chloride Level 107 98-107 mmol/L Carbon Dioxide Level 28 21-32 mmol/L Anion Gap 5.0 3-11 mmol/L Blood Urea Nitrogen 12 7-18 mg/dl Creatinine 0.71 0.60-1.20 mg/dl Est Creatinine Clear Calc Drug Dose 74.9 ml/min Estimated GFR () 100.0 Estimated GFR (Non- 86.3 BUN/Creatinine Ratio 17.2 10-20 Random Glucose 85 70-99 mg/dl Calcium Level 7.2 8.5-10.1 mg/dl Chemistry Specimen Hemolysis Assessment & Plan s/p ex lap w/right hemicolectomy/right SO -WBC down slightly -wound looks good -abx -PT -taking po well -drain with bilious drainage decreasing -CT scan without drainable collection
[2016-08-13 15:17] VITALS: BP 106/71; PULSE 76; TEMP 36.8; O2SAT 97
--- NOTE | 2016-08-13 20:32 | Progress Note ---
Internal Med Progress Note Date of Service: August 13, 2016. Provider Documentation: SUBJECTIVE: sitting up on chair continues to feel well , adequate out put form colostomy no fever or chills appetite fair , tolerating diet well , no complain of abdominal pain or nausea OBJECTIVE: Vital Signs-as noted below Exam: General-no apparent distress Lungs-diminished, no rales , or wheeze Heart-regular S1/S2 Abdomen-colostomy on rt lower quadrant functioning -pale yellow liquid in stoma bag , wound vac in mid abdomen + tenderness on upper abdomen above wound vac , Neuro-no focal neurological deficit Lab data as noted below. ASSESSMENT & PLAN: SEPSIS SECONDARY TO COLONIC PERFORATION/COLON CA WBC improving 12K -> 14 K -> 13K no fever or chills repeat blood cultures been negative IV Vancomycin D/miguelina as initial culture was + ve for gram negative bacteria pt will need total 14 days of Imipenem tx post surgery Appreciate input form ID S/P Emergent Exploratory Laparotomy, Bowel Resection, Creation of Colostomy, Left Salpingo-oophorectomy by Dr Powers 07/30/16 post op day # 14 surgery following closely pathology shows : moderately differentiated colorectal adeno CA tumor invasion through the wall of colon and to the pericolonic fat Perforation of colon proximal to tumor Metastatic Adeno CA present in 1or 12 LN Examined surgical margin free of Neoplasm CT abdomen /pelvis : stable post operative change with a moderate generalized improvement in bowel pattern compared to prior study Interval development of a small amount of air with in the recuts musculature of Rt as well in the hepatic venous system , -if progressive possibility of developing a necrotizing fascitis must be considered Study is negative for abscess or collection of fluids D/W surgery -as pt remains clinically stable cont medical management with IV Abx pt will be continued on Primaxin ( abdominal wound drainage culture -ESBL resistant to Zosyn ) lactic acid -wnl leukocytosis persists 23K -> 17K -> 12K -> 14 K -. 13 K pt is improving clinically able to tolerate diet , appetite has improved, RUQ USG -negative for cholecystitis ID following ,appreciate input FUNGEMIA/POSITIVE YEAST CULTURE IN PERITONEAL FLUID -- Abdominal Fluid: (+) E coli, moderate yeast repeat Blood cultures 08/01/16: (+) yeast in 2 bottles continued caspofungin total 14 days -- echo ordered as recommended by ID Echo : Normal LV chamber size with mild concentric LVH. * Hyperdynamic LV systolic function, EF >70%. * No segmental left ventricular wall motion abnormalities are noted. * Poorly visualized valvular structures. No significant stenosis or regurgitation by Doppler. * No valvular lesions identified within the scope of this limited imaging modality. ACUTE BLOOD LOSS ANEMIA possible acute blood loss from colon perforation, post op state -- Hb ~ 8 -> 7.4 ordered for 1 unit of PRBC transfusion follow H&H in AM ACUTE RENAL FAILURE ON CKD STAGE III - due to perforated viscus post op vol loss resolved follow PRP DM TYPE 2 - hgb a1c 5.4 04/2016 -cont insulin SSI HYPOTHYROIDISM -IV levothyroxine will change oral as able to tolerate PO DVT PROPHYLAXIS moderate to high risk post op /minimum mobility /Colon CA Lovenox Sub q GI PROPHYLAXIS PPI - will change to PO FULL CODE DISPOSITION : cont PT/OT OOB as tolerated will benefit form rehab referral made for [facility] Thank you for this consultation. We will follow the patient with you during their hospital stay. You can reach a member of the [facility] Hospitalist Team 16/10 via pager @ . Vital Signs: Date Time Temp Pulse Resp B/P Pulse Ox O2 Delivery O2 Flow Rate FiO2 08/13/16 19:30 Room Air 08/13/16 15:17 36.8 76 16 106/71 97 Room Air 08/13/16 15:11 Room Air 08/13/16 09:49 Room Air 08/13/16 07:23 36.8 80 17 100/64 95 Room Air 08/12/16 23:15 Room Air 08/12/16 23:14 36.3 106 16 93/62 96 Room Air Lab Results: Results Past 24 Hours Test 08/13/16 06:17 08/13/16 08:07 08/13/16 12:08 08/13/16 17:05 Range/Units White Blood Count 13.96 4.8-10.8 K/uL Red Blood Count 2.72 4.2-5.4 M/uL Hemoglobin 7.4 12.0-16.0 g/dL Hematocrit 23.0 37-47 % Mean Corpuscular Volume 84.6 80-100 fL Mean Corpuscular Hemoglobin 27.2 25-34 pg Mean Corpuscular Hemoglobin Concent 32.2 32-36 g/dl RDW Standard Deviation 50.9 36.4-46.3 fL RDW Coefficient of Variation 16.5 11.5-14.5 % Platelet Count 512 130-400 K/uL Mean Platelet Volume 9.1 7.4-10.4 fL Sodium Level 140 136-145 mmol/L Potassium Level 4.4 3.5-5.1 mmol/L Chloride Level 107 98-107 mmol/L Carbon Dioxide Level 28 21-32 mmol/L Anion Gap 5.0 3-11 mmol/L Blood Urea Nitrogen 12 7-18 mg/dl Creatinine 0.71 0.60-1.20 mg/dl Est Creatinine Clear Calc Drug Dose 74.9 ml/min Estimated GFR () 100.0 Estimated GFR (Non- 86.3 BUN/Creatinine Ratio 17.2 10-20 Random Glucose 85 70-99 mg/dl Calcium Level 7.2 8.5-10.1 mg/dl Chemistry Specimen Hemolysis Bedside Glucose 86 81 115 70-90 mg/dl
[2016-08-13 22:15] VITALS: BP 97/61; PULSE 86; TEMP 37; O2SAT 94
[2016-08-13 22:39] VITALS: BP 104/64; PULSE 87; TEMP 36.9; O2SAT 95
[2016-08-13 22:45] VITALS: BP 100/65; PULSE 77; PULSE 84; TEMP 36.8; O2SAT 95; O2SAT 96
[2016-08-13 23:15] VITALS: BP 97/59; PULSE 78; TEMP 36.8; O2SAT 95
[2016-08-14 00:15] VITALS: BP 100/61; PULSE 82; TEMP 37.1; O2SAT 94
[2016-08-14] MEDS: UMECLIDINIUM VILANTEROL INH SCH (05:36)
[2016-08-14] MEDS: IPRATROPIUM BROMIDE/ALBUTEROL respimat INH INH SCH ×3 (05:37→18:23)
[2016-08-14] MEDS: LEVOTHYROXINE 75 MCG TAB PO SCH (05:38)
[2016-08-14 06:25] LABS: HEMATOCRIT 32.5 % (37-47); MEAN CELL VOLUME 84.2 fL (80-100); MEAN CORPUSCULAR HEMOGLOBIN 26.4 pg (25-34); MEAN CORPUSCULAR HGB CONC 31.4 g/dl (32-36); MEAN PLATELET VOLUME 9.4 fL (7.4-10.4); PLATELET COUNT 526 K/uL (130-400); RED BLOOD COUNT 3.86 M/uL (4.2-5.4); WHITE BLOOD COUNT 17.58 K/uL (4.8-10.8)
[2016-08-14 06:56] LABS: CALCIUM 7.8 mg/dl (8.5-10.1); CREATININE 0.63 mg/dl (0.60-1.20); POTASSIUM 4.4 mmol/L (3.5-5.1)
[2016-08-14 07:04] VITALS: BP 99/67; PULSE 75; TEMP 36.5; O2SAT 96
[2016-08-14] MEDS: CHLORHEXIDINE GLUCONATE 0.12% 480 ML MT SCH ×2 (08:38→22:01)
[2016-08-14] MEDS: FLUTICASONE PROPIONATE NA SPR 16 GM BTL NAE SCH (08:39)
[2016-08-14] MEDS: SERTRALINE HCL 50 MG TAB PO SCH (08:40)
[2016-08-14] MEDS: ASCORBIC ACID 500 MG TAB PO SCH ×2 (08:42→21:58)
[2016-08-14] MEDS: CALCITRIOL 0.25 MCG CAP PO SCH (08:42)
[2016-08-14] MEDS: LACTOBACILLUS ACIDOPHILUS (FLORANEX) TAB PO SCH ×3 (08:42→22:00)
[2016-08-14] MEDS: MULTIVITAMIN TAB PO SCH (08:43)
[2016-08-14] MEDS: PANTOprazole SOD 40 MG TAB PO SCH (08:43)
[2016-08-14] MEDS: CETIRIZINE HCL 10 MG TAB PO SCH (08:44)
[2016-08-14] MEDS: ENOXAPARIN 40 MG/0.4 ML SYR SQ SCH (08:46)
[2016-08-14] MEDS: INSULIN ASPART 100 UNITS/ML 3 ML PEN SC SCH ×4 (08:55→21:56)
[2016-08-14] MEDS: BOOST VANILLA PO SCH ×6 (08:58→18:33)
--- NOTE | 2016-08-14 11:49 | Surgery Progress Note ---
Surgery Progress Note Date of Service August 14, 2016. Subjective Post OP Day: 15 + bowel movement (ileosstomy functioning), + diet (tolerating soft diet), + feeling well, No nausea, No vomiting Objective Vital Signs: Date Time Temp Pulse Resp B/P Pulse Ox O2 Delivery O2 Flow Rate FiO2 08/14/16 07:48 Room Air 08/14/16 07:04 36.5 75 18 99/67 96 Room Air 08/14/16 00:15 37.1 82 14 100/61 94 08/13/16 23:15 36.8 78 16 97/59 95 08/13/16 22:45 36.8 84 16 100/65 96 08/13/16 22:45 36.8 77 16 100/65 95 08/13/16 22:39 36.9 87 17 104/64 95 08/13/16 22:15 37.0 86 18 97/61 94 08/13/16 19:30 Room Air 08/13/16 15:17 36.8 76 16 106/71 97 Room Air 08/13/16 15:11 Room Air Physical Exam: MARIBEL drainage (Right: minimal but material hasa appearance of small bowel contents, Left: serosanguinous) Abdomen: normal bowel sounds, non tender, non distended, soft, + pertinent finding (wound vac in place) Laboratory Results: Results Past 24 Hours Test 08/13/16 12:08 08/13/16 17:05 08/13/16 20:27 08/14/16 06:12 Range/Units Bedside Glucose 81 115 101 70-90 mg/dl White Blood Count 17.58 4.8-10.8 K/uL Red Blood Count 3.86 4.2-5.4 M/uL Hemoglobin 10.2 12.0-16.0 g/dL Hematocrit 32.5 37-47 % Mean Corpuscular Volume 84.2 80-100 fL Mean Corpuscular Hemoglobin 26.4 25-34 pg Mean Corpuscular Hemoglobin Concent 31.4 32-36 g/dl RDW Standard Deviation 49.8 36.4-46.3 fL RDW Coefficient of Variation 16.3 11.5-14.5 % Platelet Count 526 130-400 K/uL Mean Platelet Volume 9.4 7.4-10.4 fL Sodium Level 140 136-145 mmol/L Potassium Level 4.4 3.5-5.1 mmol/L Chloride Level 106 98-107 mmol/L Carbon Dioxide Level 28 21-32 mmol/L Anion Gap 6.0 3-11 mmol/L Blood Urea Nitrogen 10 7-18 mg/dl Creatinine 0.63 0.60-1.20 mg/dl Est Creatinine Clear Calc Drug Dose 84.4 ml/min Estimated GFR () 105.3 Estimated GFR (Non- 90.9 BUN/Creatinine Ratio 16.0 10-20 Random Glucose 75 70-99 mg/dl Calcium Level 7.8 8.5-10.1 mg/dl Test 08/14/16 08:10 Range/Units Bedside Glucose 79 70-90 mg/dl Assessment & Plan S/P right colectomy with ileostomy formation Pathology showed carcinoma, margins clear, 1/12 lymph nodes positive, shared with patient Stable hemodynamically Ostomy output good, peristalsis has returned Tolerating soft diet Continue Boost Continue wound vac WBC up today 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, Will continue to monitor, no evidence of peritonitis Continue IV antibiotics Continue PT S/P right colectomy with ileostomy formation Pathology showed carcinoma, margins clear, 1/12 lymph nodes positive, shared with patient last week Stable hemodynamically Ostomy output good, peristalsis has returned No vomiting yesterday, try soft diet Continue Boost Wound with some purulence, continue wound vac WBC up again yesterday, today's pending CT scan reviewed, no obvious abscess Check for other reasons for increased WBC, gallbladder wall appears mild thickened, will get ultrasound of gallbladder Continue IV antibiotics, add Flagyl Continue PT
[2016-08-14 15:17] VITALS: BP 106/69; PULSE 88; TEMP 36.9; O2SAT 98
[2016-08-14 16:07] VITALS: O2SAT 98
[2016-08-14] MEDS: IMIPENEM/CILASTATIN IV 500 MG in DEXTROSE 5% 100ML 100 ML IV SCH (18:48)
--- NOTE | 2016-08-14 19:44 | Progress Note ---
Internal Med Progress Note Date of Service: August 14, 2016. Provider Documentation: SUBJECTIVE: continues to feel well tolerating diet no fever or chills OBJECTIVE: Vital Signs-as noted below Exam: General-no apparent distress Lungs-diminished, no rales , or wheeze Heart-regular S1/S2 Abdomen-colostomy on rt lower quadrant functioning -pale yellow liquid in stoma bag , wound vac in mid abdomen + tenderness on upper abdomen above wound vac , Neuro-no focal neurological deficit Lab data as noted below. ASSESSMENT & PLAN: SEPSIS SECONDARY TO COLONIC PERFORATION/COLON CA WBC elevated to 17 K no fever or chills repeat blood cultures been negative IV Vancomycin D/miguelina as initial culture was + ve for gram negative bacteria pt will need total 14 days of Imipenem tx post surgery Appreciate input form ID S/P Emergent Exploratory Laparotomy, Bowel Resection, Creation of Colostomy, Left Salpingo-oophorectomy by Dr Powers 07/30/16 post op day # 15 surgery following closely pathology shows : moderately differentiated colorectal adeno CA tumor invasion through the wall of colon and to the pericolonic fat Perforation of colon proximal to tumor Metastatic Adeno CA present in 1or 12 LN Examined surgical margin free of Neoplasm CT abdomen /pelvis : stable post operative change with a moderate generalized improvement in bowel pattern compared to prior study Interval development of a small amount of air with in the recuts musculature of Rt as well in the hepatic venous system , -if progressive possibility of developing a necrotizing fascitis must be considered Study is negative for abscess or collection of fluids D/W surgery -as pt remains clinically stable cont medical management with IV Abx pt will be continued on Primaxin ( abdominal wound drainage culture -ESBL resistant to Zosyn ) lactic acid -wnl leukocytosis persists 23K -> 17K -> 12K -> 14 K -. 13 K -> 17 K pt is improving clinically able to tolerate diet , appetite has improved, RUQ USG -negative for cholecystitis ID following ,appreciate input FUNGEMIA/POSITIVE YEAST CULTURE IN PERITONEAL FLUID -- Abdominal Fluid: (+) E coli, moderate yeast repeat Blood cultures 08/01/16: (+) yeast in 2 bottles continued caspofungin total 14 days -- echo ordered as recommended by ID Echo : Normal LV chamber size with mild concentric LVH. * Hyperdynamic LV systolic function, EF >70%. * No segmental left ventricular wall motion abnormalities are noted. * Poorly visualized valvular structures. No significant stenosis or regurgitation by Doppler. * No valvular lesions identified within the scope of this limited imaging modality. ACUTE BLOOD LOSS ANEMIA possible acute blood loss from colon perforation, post op state --hb improved ~10 today s/p PRBC tx yesterday ( total 2 units of tx since this Admission ) follow H&H in AM ACUTE RENAL FAILURE ON CKD STAGE III - due to perforated viscus post op vol loss resolved follow PRP DM TYPE 2 - hgb a1c 5.4 04/2016 -cont insulin SSI HYPOTHYROIDISM -IV levothyroxine will change oral as able to tolerate PO DVT PROPHYLAXIS moderate to high risk post op /minimum mobility /Colon CA Lovenox Sub q GI PROPHYLAXIS PPI - will change to PO FULL CODE DISPOSITION : cont PT/OT OOB as tolerated will benefit form rehab referral made for [facility] Thank you for this consultation. We will follow the patient with you during their hospital stay. You can reach a member of the [facility] Hospitalist Team 16/10 via pager @ . Vital Signs: Date Time Temp Pulse Resp B/P Pulse Ox O2 Delivery O2 Flow Rate FiO2 08/14/16 16:07 98 Room Air 08/14/16 15:17 36.9 88 18 106/69 98 Room Air 08/14/16 07:48 Room Air 08/14/16 07:04 36.5 75 18 99/67 96 Room Air 08/14/16 00:15 37.1 82 14 100/61 94 08/13/16 23:15 36.8 78 16 97/59 95 08/13/16 22:45 36.8 84 16 100/65 96 08/13/16 22:45 36.8 77 16 100/65 95 08/13/16 22:39 36.9 87 17 104/64 95 08/13/16 22:15 37.0 86 18 97/61 94 Lab Results: Results Past 24 Hours Test 08/14/16 06:12 08/14/16 08:10 08/14/16 12:06 08/14/16 17:03 Range/Units White Blood Count 17.58 4.8-10.8 K/uL Red Blood Count 3.86 4.2-5.4 M/uL Hemoglobin 10.2 12.0-16.0 g/dL Hematocrit 32.5 37-47 % Mean Corpuscular Volume 84.2 80-100 fL Mean Corpuscular Hemoglobin 26.4 25-34 pg Mean Corpuscular Hemoglobin Concent 31.4 32-36 g/dl RDW Standard Deviation 49.8 36.4-46.3 fL RDW Coefficient of Variation 16.3 11.5-14.5 % Platelet Count 526 130-400 K/uL Mean Platelet Volume 9.4 7.4-10.4 fL Sodium Level 140 136-145 mmol/L Potassium Level 4.4 3.5-5.1 mmol/L Chloride Level 106 98-107 mmol/L Carbon Dioxide Level 28 21-32 mmol/L Anion Gap 6.0 3-11 mmol/L Blood Urea Nitrogen 10 7-18 mg/dl Creatinine 0.63 0.60-1.20 mg/dl Est Creatinine Clear Calc Drug Dose 84.4 ml/min Estimated GFR () 105.3 Estimated GFR (Non- 90.9 BUN/Creatinine Ratio 16.0 10-20 Random Glucose 75 70-99 mg/dl Calcium Level 7.8 8.5-10.1 mg/dl Bedside Glucose 79 108 100 70-90 mg/dl
[2016-08-14 23:35] VITALS: BP 109/71; PULSE 95; TEMP 36.6; O2SAT 95
[2016-08-15] MEDS: ACETAMINOPHEN IV 650 MG in EMPTY BAG 0 ML IV PRN (01:00)
[2016-08-15] MEDS: IPRATROPIUM BROMIDE/ALBUTEROL respimat INH INH SCH ×4 (01:00→18:51)
[2016-08-15] MEDS: IMIPENEM/CILASTATIN IV 500 MG in DEXTROSE 5% 100ML 100 ML IV SCH ×4 (02:12→18:49)
[2016-08-15] MEDS: UMECLIDINIUM VILANTEROL INH SCH (06:26)
[2016-08-15] MEDS: LEVOTHYROXINE 75 MCG TAB PO SCH (06:26)
[2016-08-15 07:50] VITALS: BP 115/73; PULSE 100; TEMP 36.3; O2SAT 97
[2016-08-15] MEDS: BOOST VANILLA PO SCH ×6 (09:00→18:49)
[2016-08-15] MEDS: INSULIN ASPART 100 UNITS/ML 3 ML PEN SC SCH ×4 (09:04→21:32)
[2016-08-15] MEDS: FLUTICASONE PROPIONATE NA SPR 16 GM BTL NAE SCH (09:07)
[2016-08-15] MEDS: CHLORHEXIDINE GLUCONATE 0.12% 480 ML MT SCH ×2 (09:07→21:31)
[2016-08-15] MEDS: ENOXAPARIN 40 MG/0.4 ML SYR SQ SCH (09:08)
[2016-08-15] MEDS: MULTIVITAMIN TAB PO SCH (09:10)
[2016-08-15] MEDS: PANTOprazole SOD 40 MG TAB PO SCH (09:10)
[2016-08-15] MEDS: ASCORBIC ACID 500 MG TAB PO SCH ×2 (09:10→21:31)
[2016-08-15] MEDS: LACTOBACILLUS ACIDOPHILUS (FLORANEX) TAB PO SCH ×3 (09:10→21:31)
[2016-08-15] MEDS: SERTRALINE HCL 50 MG TAB PO SCH (09:11)
[2016-08-15] MEDS: CETIRIZINE HCL 10 MG TAB PO SCH (09:11)
[2016-08-15 10:27] LABS: BASO % 0.3 %; BASO ABS # 0.05 K/uL (0-0.2); COMPLETE YES; EOS % 0.6 %; HEMATOCRIT 29.3 % (37-47); LYMPH % 10.1 %; LYMPH ABS # 1.73 K/uL (1.2-3.4); MEAN CORPUSCULAR HEMOGLOBIN 26.4 pg (25-34); MEAN CORPUSCULAR HGB CONC 31.4 g/dl (32-36); MONO % 7.7 %; NEUT % 78.3 %; PLATELET COUNT 458 K/uL (130-400); RED BLOOD COUNT 3.49 M/uL (4.2-5.4)
[2016-08-15 11:00] LABS: BUN/CREATININE RATIO 15.4 (10-20); CREATININE 0.7 mg/dl (0.60-1.20); POTASSIUM 4.1 mmol/L (3.5-5.1)
[2016-08-15 11:06] LABS: CALCIUM 7.9 mg/dl (8.5-10.1)
--- NOTE | 2016-08-15 11:55 | Surgery Progress Note ---
Surgery Progress Note Date of Service August 15, 2016. Subjective Post OP Day: POD # 16 s/p right hemicolectomy and formation of ileostomy + bowel movement, + diet, + feeling well, + flatus, No SOB, No chest pain, No complaints, No nausea, No vomiting Objective Vital Signs: Date Time Temp Pulse Resp B/P Pulse Ox O2 Delivery O2 Flow Rate FiO2 08/15/16 07:50 36.3 100 18 115/73 97 Room Air 08/15/16 07:35 Room Air 08/14/16 23:50 Room Air 08/14/16 23:35 36.6 95 19 109/71 95 Room Air 08/14/16 16:07 98 Room Air 08/14/16 15:17 36.9 88 18 106/69 98 Room Air General Appearance: WD/WN, no apparent distress Head: normocephalic, atraumatic Neck: trachea midline Respiratory/Chest: no respiratory distress, no accessory muscle use Abdomen: non tender, non distended, soft, + pertinent finding (midline wound present with healthy granulation tissue but fibrinous drainage, copious amounts) Laboratory Results: Results Past 24 Hours Test 08/14/16 12:06 08/14/16 17:03 08/14/16 21:08 08/15/16 07:47 Range/Units Bedside Glucose 108 100 105 89 70-90 mg/dl Test 08/15/16 10:17 Range/Units White Blood Count 17.10 4.8-10.8 K/uL Red Blood Count 3.49 4.2-5.4 M/uL Hemoglobin 9.2 12.0-16.0 g/dL Hematocrit 29.3 37-47 % Mean Corpuscular Volume 84.0 80-100 fL Mean Corpuscular Hemoglobin 26.4 25-34 pg Mean Corpuscular Hemoglobin Concent 31.4 32-36 g/dl Platelet Count 458 130-400 K/uL Mean Platelet Volume 9.0 7.4-10.4 fL Neutrophils (%) (Auto) 78.3 % Lymphocytes (%) (Auto) 10.1 % Monocytes (%) (Auto) 7.7 % Eosinophils (%) (Auto) 0.6 % Basophils (%) (Auto) 0.3 % Neutrophils # (Auto) 13.39 1.4-6.5 K/uL Lymphocytes # (Auto) 1.73 1.2-3.4 K/uL Monocytes # (Auto) 1.32 0.11-0.59 K/uL Eosinophils # (Auto) 0.10 0-0.5 K/uL Basophils # (Auto) 0.05 0-0.2 K/uL RDW Standard Deviation 50.6 36.4-46.3 fL RDW Coefficient of Variation 16.8 11.5-14.5 % Immature Granulocyte % (Auto) 3.0 % Immature Granulocyte # (Auto) 0.51 0.00-0.02 K/uL Sodium Level 137 136-145 mmol/L Potassium Level 4.1 3.5-5.1 mmol/L Chloride Level 102 98-107 mmol/L Carbon Dioxide Level 27 21-32 mmol/L Anion Gap 8.0 3-11 mmol/L Blood Urea Nitrogen 11 7-18 mg/dl Creatinine 0.70 0.60-1.20 mg/dl Est Creatinine Clear Calc Drug Dose 76.0 ml/min Estimated GFR () 101.7 Estimated GFR (Non- 87.8 BUN/Creatinine Ratio 15.4 10-20 Random Glucose 101 70-99 mg/dl Calcium Level 7.9 8.5-10.1 mg/dl Assessment & Plan POD # 16 s/p ex lap, right hemicolectomy, right oophorectomy, ileostomy and mucous fistula formation - Pathology showing adenocarcinoma, patient aware 1/12 lymph nodes positive - wound vac alarmed last evening and removed, wound with healthy granulation tissue, copious fibrinous drainage - ostomy functioning - adequate urine output - leukocytosis stable at 17.10 Plan: Continue low fiber diet continue Boost TID continue MARIBEL drain to bulb suction Continue wound vac and dressing changes Continue IV antibiotics Repeat am labs continue PT Dr. Powers has seen and examined patient, agrees with above stated findings and treatment plan.
[2016-08-15 15:59] VITALS: BP 97/60; PULSE 61; TEMP 36.6; O2SAT 96
[2016-08-15 16:00] VITALS: O2SAT 96
--- NOTE | 2016-08-15 19:12 | Progress Note ---
Subjective Date of Service: August 15, 2016. Subjective Pt evaluation today including: conversation w/ patient, physical exam, lab review, review of studies, review of inpatient medication list Saw/examined the patient in room 311 She is seated in a chair, doing well; pain is controlled Eating well, no other issues to note Problem List Medical Problems: (1) Closed head injury Status: Acute (2) Dehydration Status: Acute (3) Fall Status: Acute (4) Hypothermia Status: Acute (5) Perforated viscus Status: Acute (6) Perforation of cecum Status: Acute (7) Pressure ulcer Status: Acute (8) Rhabdomyolysis Status: Acute (9) Septic shock Status: Acute (10) UTI (urinary tract infection) Status: Acute Review of Systems Constitutional: No chills, No fever, No weakness Respiratory: No cough, No shortness of breath, No sputum Cardiac: No chest pain, No edema, No palpitations Abdomen: No GI bleeding, No constipation, No diarrhea, No nausea, No pain, No vomiting Medications Current Inpatient Medications Medications (Trade) Dose Ordered Sig/[place] Route Start Time Stop Time Status Last Admin Dose Admin Chlorhexidine Gluconate (Peridex Oral Soln) 15 ml BID MT 07/30/16 21:00 08/29/16 20:59 08/15/16 09:07 15 ML Glucose (Glucose 40% Gel) 15-30 GRAMS 15 GRAMS... UD PRN PO 07/30/16 14:45 08/29/16 14:44 Glucose (Glucose Chew Tab) 4-8 Tablets 4 Tabl... UD PRN PO 07/30/16 14:45 08/29/16 14:44 Dextrose (Dextrose 50% 50ML Syringe) 25-50ML OF 50% DW IV FOR... UD PRN IV 07/30/16 14:45 08/29/16 14:44 Glucagon (Glucagon Inj) 1 mg UD PRN SQ 07/30/16 14:45 08/29/16 14:44 Enoxaparin Sodium 40 mg 40 mg QAM SQ 08/01/16 09:00 08/31/16 08:59 08/15/16 09:08 40 MG Acetaminophen/ Empty Bag (Ofirmev Iv/ Empty Iv Bag 100ml) 65 ml @ 260 mls/hr Q6H PRN IV 08/01/16 09:15 08/31/16 09:14 08/15/16 01:00 260 MLS/HR Albuterol/ Ipratropium (Combivent Respimat Inh) 1 puffs Q6 INH 08/05/16 21:00 09/04/16 20:59 08/15/16 12:35 1 PUFFS Albuterol/ Ipratropium (Duoneb) 3 ml Q6R PRN INH 08/04/16 19:30 09/03/16 19:29 Fluticasone Propionate (Flonase Nasal [place]) 2 sprays DAILY MARI 08/07/16 09:00 09/06/16 08:59 08/15/16 09:07 2 SPRAYS Ondansetron HCl (Zofran Inj) 4 mg Q6H PRN IV 08/08/16 06:00 09/07/16 05:59 08/12/16 06:33 4 MG Al Hydroxide/Mg Hydroxide (Maalox Susp) 30 ml QID PRN PO 08/08/16 10:30 09/07/16 10:29 Hydromorphone HCl (Dilaudid Inj) 1 mg Q4H PRN IV 08/09/16 22:15 08/23/16 22:14 08/10/16 19:56 1 MG Insulin Aspart (novoLOG ASPART) SLIDING SCALE ACHS SC 08/11/16 08:00 09/10/16 07:59 08/15/16 13:09 3 UNITS Enteral Nutritional Formula (Boost) 1 can PC PO 08/11/16 09:00 09/10/16 08:59 08/14/16 18:33 1 CAN Ascorbic Acid (Vitamin C Tab) 500 mg BID PO 08/13/16 09:00 09/12/16 08:59 08/15/16 09:10 500 MG Calcitriol (Rocaltrol Cap) 0.25 mcg MoWeFr@0900 PO 08/14/16 09:00 09/13/16 08:59 08/14/16 08:42 0.25 MCG Cetirizine HCl (zyrTEC TAB) 5 mg DAILY PO 08/13/16 09:00 09/12/16 08:59 08/15/16 09:11 5 MG Lactobacillus Acidophilus (Floranex Tab) 4 tab TID PO 08/13/16 09:00 09/12/16 08:59 08/15/16 13:44 4 TAB Levothyroxine Sodium (Synthroid Tab) 75 mcg DAILYBB PO 08/13/16 06:00 09/12/16 05:59 08/15/16 06:26 75 MCG Multivitamins (Multivitamin Tab) 1 tab QAM PO 08/13/16 09:00 09/12/16 08:59 08/15/16 09:10 1 TAB Sertraline HCl (Zoloft Tab) 50 mg DAILY PO 08/13/16 09:00 09/12/16 08:59 08/15/16 09:11 50 MG Pantoprazole Sodium 40 mg 40 mg QAM PO 08/13/16 09:00 09/12/16 08:59 08/15/16 09:10 40 MG Imipenem/ Cilastatin Sodium/ Dextrose (Primaxin Iv/D5 100ml) 110 ml @ 100 mls/hr Q6H IV 08/14/16 19:00 08/24/16 18:59 08/15/16 12:35 100 MLS/HR Objective Vital Signs Date Time Temp Pulse Resp B/P Pulse Ox O2 Delivery O2 Flow Rate FiO2 08/15/16 15:59 36.6 61 18 97/60 96 Room Air 08/15/16 07:50 36.3 100 18 115/73 97 Room Air 08/15/16 07:35 Room Air 08/14/16 23:50 Room Air 08/14/16 23:35 36.6 95 19 109/71 95 Room Air Physical Exam Respiratory/Chest: no respiratory distress, no accessory muscle use Abdomen: + pertinent finding (+colostomy in place, draining well; MARIBEL drain, draining greenish fluid, wound vac draining yellowish clear fluid) Extremities: normal inspection, no pedal edema Neurologic/Psychiatric: no motor/sensory deficits, alert, normal mood/affect Laboratory Results Last 24 Hours Test 08/14/16 21:08 08/15/16 07:47 08/15/16 10:17 08/15/16 11:56 Bedside Glucose 105 mg/dl 89 mg/dl 104 mg/dl White Blood Count 17.10 K/uL Red Blood Count 3.49 M/uL Hemoglobin 9.2 g/dL Hematocrit 29.3 % Mean Corpuscular Volume 84.0 fL Mean Corpuscular Hemoglobin 26.4 pg Mean Corpuscular Hemoglobin Concent 31.4 g/dl Platelet Count 458 K/uL Mean Platelet Volume 9.0 fL Neutrophils (%) (Auto) 78.3 % Lymphocytes (%) (Auto) 10.1 % Monocytes (%) (Auto) 7.7 % Eosinophils (%) (Auto) 0.6 % Basophils (%) (Auto) 0.3 % Neutrophils # (Auto) 13.39 K/uL Lymphocytes # (Auto) 1.73 K/uL Monocytes # (Auto) 1.32 K/uL Eosinophils # (Auto) 0.10 K/uL Basophils # (Auto) 0.05 K/uL RDW Standard Deviation 50.6 fL RDW Coefficient of Variation 16.8 % Immature Granulocyte % (Auto) 3.0 % Immature Granulocyte # (Auto) 0.51 K/uL Sodium Level 137 mmol/L Potassium Level 4.1 mmol/L Chloride Level 102 mmol/L Carbon Dioxide Level 27 mmol/L Anion Gap 8.0 mmol/L Blood Urea Nitrogen 11 mg/dl Creatinine 0.70 mg/dl Est Creatinine Clear Calc Drug Dose 76.0 ml/min Estimated GFR () 101.7 Estimated GFR (Non- 87.8 BUN/Creatinine Ratio 15.4 Random Glucose 101 mg/dl Calcium Level 7.9 mg/dl Test 08/15/16 16:55 Bedside Glucose 97 mg/dl Assessment and Plan This is a 71 year old female with a PMH of COPD, CKD stage 3, hypothyroidism, DM2 presents with colon perforation s/p colostomy Colon CA s/p colon perforation s/p colostomy formation s/p Emergent Exploratory Laparotomy, Bowel Resection, Creation of Colostomy, Left Salpingo-oophorectomy by Dr Powers on 07/30/16 appreciate ID input, Primaxin for a total of 14 days WBC still elevated, monitor CBC cultures have been negative pathology reveals 04/06 LN + for adenocarcinoma MARIBEL drain and wound vac still in place, draining colostomy functioning properly PT/OT; plan for rehab when okay with surgery septic shock post-operatively, initially intubated and on Levophed post-op; now doing better, BP controlled Fungemia Positive Yeast in Peritoneal Fluid +blood cultures for yeast on 08/01 to be on Caspofungin for a total of 14 days echo = no valvular lesions noted repeat cultures negative Acute Blood Loss Anemia patient has had two units total of pRBCs during this admission hgb was down to around 7, transfused one unit and now up to 9.1 monitor H/H daily while inpatient Acute Kidney Injury superimposed on CKD stage 3 post-operatively dehydrated creatinine was up to 1.4, fluid resuscitation and now creatinine is back to baseline DM2, well controlled last Ha1c < 6% insulin sliding scale and monitor Hypothyroidism continue Synthroid DVT ppx Lovenox GI ppx Protonix FULL CODE
[2016-08-15 23:30] VITALS: BP 120/71; PULSE 81; TEMP 36.6; O2SAT 97
[2016-08-16] MEDS: IPRATROPIUM BROMIDE/ALBUTEROL respimat INH INH SCH ×4 (00:51→18:26)
[2016-08-16] MEDS: IMIPENEM/CILASTATIN IV 500 MG in DEXTROSE 5% 100ML 100 ML IV SCH ×4 (00:51→19:58)
[2016-08-16 05:57] LABS: HEMATOCRIT 27.5 % (37-47); MEAN CELL VOLUME 85.7 fL (80-100); MEAN CORPUSCULAR HGB CONC 32.7 g/dl (32-36); MEAN PLATELET VOLUME 9.5 fL (7.4-10.4); PLATELET COUNT 441 K/uL (130-400); RED BLOOD COUNT 3.21 M/uL (4.2-5.4); WHITE BLOOD COUNT 13.68 K/uL (4.8-10.8)
[2016-08-16] MEDS: UMECLIDINIUM VILANTEROL INH SCH (06:24)
[2016-08-16] MEDS: LEVOTHYROXINE 75 MCG TAB PO SCH (06:25)
[2016-08-16 06:42] LABS: BUN/CREATININE RATIO 16.6 (10-20); CALCIUM 7.9 mg/dl (8.5-10.1); CREATININE 0.82 mg/dl (0.60-1.20); POTASSIUM 5.2 mmol/L (3.5-5.1)
[2016-08-16 07:14] VITALS: BP 104/65; PULSE 88; TEMP 36.6; O2SAT 95
[2016-08-16] MEDS: CHLORHEXIDINE GLUCONATE 0.12% 480 ML MT SCH ×2 (08:50→21:01)
[2016-08-16] MEDS: CALCITRIOL 0.25 MCG CAP PO SCH (08:52)
[2016-08-16] MEDS: ASCORBIC ACID 500 MG TAB PO SCH ×2 (08:52→21:02)
[2016-08-16] MEDS: CETIRIZINE HCL 10 MG TAB PO SCH (08:52)
[2016-08-16] MEDS: MULTIVITAMIN TAB PO SCH (08:52)
[2016-08-16] MEDS: SERTRALINE HCL 50 MG TAB PO SCH (08:52)
[2016-08-16] MEDS: PANTOprazole SOD 40 MG TAB PO SCH (08:53)
[2016-08-16] MEDS: FLUTICASONE PROPIONATE NA SPR 16 GM BTL NAE SCH (08:53)
[2016-08-16] MEDS: ENOXAPARIN 40 MG/0.4 ML SYR SQ SCH (08:53)
[2016-08-16] MEDS: LACTOBACILLUS ACIDOPHILUS (FLORANEX) TAB PO SCH ×3 (08:53→21:02)
[2016-08-16] MEDS: BOOST VANILLA PO SCH ×6 (08:53→18:26)
[2016-08-16] MEDS: INSULIN ASPART 100 UNITS/ML 3 ML PEN SC SCH ×4 (09:01→21:00)
--- NOTE | 2016-08-16 13:17 | Surgery Progress Note ---
Surgery Progress Note Date of Service August 16, 2016. Subjective Post OP Day: POD#17 + bowel movement, + diet (low fiber diet), + feeling well, + flatus, + pain controlled, No SOB, No chest pain, No complaints, No nausea, No vomiting Objective Vital Signs: Date Time Temp Pulse Resp B/P Pulse Ox O2 Delivery O2 Flow Rate FiO2 08/16/16 07:25 Room Air 08/16/16 07:14 36.6 88 16 104/65 95 Room Air 08/16/16 00:50 Room Air 08/15/16 23:30 36.6 81 18 120/71 97 Room Air 08/15/16 16:00 96 Room Air 08/15/16 15:59 36.6 61 18 97/60 96 Room Air Physical Exam: JESS drainage (right jess drain with green cloudy drainage, left jess drian with serous drainage) General Appearance: WD/WN, no apparent distress Head: normocephalic, atraumatic Neck: trachea midline Respiratory/Chest: no respiratory distress, no accessory muscle use Abdomen: non tender, non distended, soft, + pertinent finding (midline laparotomy with wound vac present, ostomy pink and funcitioning, mucous fistula pink) Incision(s): clean, dry, intact Extremities: + pedal edema (+1 bilaterally) Laboratory Results: Results Past 24 Hours Test 08/15/16 16:55 08/15/16 20:44 08/16/16 05:30 08/16/16 08:18 Range/Units Bedside Glucose 97 116 101 70-90 mg/dl White Blood Count 13.68 4.8-10.8 K/uL Red Blood Count 3.21 4.2-5.4 M/uL Hemoglobin 9.0 12.0-16.0 g/dL Hematocrit 27.5 37-47 % Mean Corpuscular Volume 85.7 80-100 fL Mean Corpuscular Hemoglobin 28.0 25-34 pg Mean Corpuscular Hemoglobin Concent 32.7 32-36 g/dl RDW Standard Deviation 53.0 36.4-46.3 fL RDW Coefficient of Variation 17.0 11.5-14.5 % Platelet Count 441 130-400 K/uL Mean Platelet Volume 9.5 7.4-10.4 fL Sodium Level 142 136-145 mmol/L Potassium Level 5.2 3.5-5.1 mmol/L Chloride Level 107 98-107 mmol/L Carbon Dioxide Level 32 21-32 mmol/L Anion Gap 3.0 3-11 mmol/L Blood Urea Nitrogen 14 7-18 mg/dl Creatinine 0.82 0.60-1.20 mg/dl Est Creatinine Clear Calc Drug Dose 64.9 ml/min Estimated GFR () 84.0 Estimated GFR (Non- 72.5 BUN/Creatinine Ratio 16.6 10-20 Random Glucose 87 70-99 mg/dl Calcium Level 7.9 8.5-10.1 mg/dl Test 08/16/16 11:59 Range/Units Bedside Glucose 117 70-90 mg/dl Assessment & Plan POD # 17 s/p right hemicolectomy, ileostomy formation and mucous fistula formation - vitals stable - leukocytosis decreased 13 today (17 yesterday) - minimal pain - + ostomy output - wound vac functioning Plan: Repeat labs tomorrow, follow white count continue diet as tolerated continue IV antibiotics will determine discharge planning tomorrow/Sunday Continue PT Continue wound vac at current settings continue jess drain to bulb suction Dr. Powers has seen and examined patient, agrees with above
[2016-08-16 15:35] VITALS: BP 108/73; PULSE 97; TEMP 36.9; O2SAT 96
--- NOTE | 2016-08-16 16:08 | Progress Note ---
Subjective Date of Service: August 16, 2016. Subjective Pt evaluation today including: conversation w/ patient, physical exam, lab review, review of studies, review of inpatient medication list Saw/examined the patient in room 311 She is doing well, no pain, eating well no abdominal pain, no fevers/chills Problem List Medical Problems: (1) Closed head injury Status: Acute (2) Dehydration Status: Acute (3) Fall Status: Acute (4) Hypothermia Status: Acute (5) Perforated viscus Status: Acute (6) Perforation of cecum Status: Acute (7) Pressure ulcer Status: Acute (8) Rhabdomyolysis Status: Acute (9) Septic shock Status: Acute (10) UTI (urinary tract infection) Status: Acute Review of Systems Constitutional: No chills, No fever Respiratory: No shortness of breath Cardiac: No chest pain Abdomen: No diarrhea, No nausea, No pain, No vomiting Medications Current Inpatient Medications Medications (Trade) Dose Ordered Sig/[place] Route Start Time Stop Time Status Last Admin Dose Admin Chlorhexidine Gluconate (Peridex Oral Soln) 15 ml BID MT 07/30/16 21:00 08/29/16 20:59 08/15/16 09:07 15 ML Glucose (Glucose 40% Gel) 15-30 GRAMS 15 GRAMS... UD PRN PO 07/30/16 14:45 08/29/16 14:44 Glucose (Glucose Chew Tab) 4-8 Tablets 4 Tabl... UD PRN PO 07/30/16 14:45 08/29/16 14:44 Dextrose (Dextrose 50% 50ML Syringe) 25-50ML OF 50% DW IV FOR... UD PRN IV 07/30/16 14:45 08/29/16 14:44 Glucagon (Glucagon Inj) 1 mg UD PRN SQ 07/30/16 14:45 08/29/16 14:44 Enoxaparin Sodium 40 mg 40 mg QAM SQ 08/01/16 09:00 08/31/16 08:59 08/16/16 08:53 40 MG Acetaminophen/ Empty Bag (Ofirmev Iv/ Empty Iv Bag 100ml) 65 ml @ 260 mls/hr Q6H PRN IV 08/01/16 09:15 08/31/16 09:14 08/15/16 01:00 260 MLS/HR Albuterol/ Ipratropium (Combivent Respimat Inh) 1 puffs Q6 INH 08/05/16 21:00 09/04/16 20:59 08/16/16 13:00 1 PUFFS Albuterol/ Ipratropium (Duoneb) 3 ml Q6R PRN INH 08/04/16 19:30 09/03/16 19:29 Fluticasone Propionate (Flonase Nasal [place]) 2 sprays DAILY MARI 08/07/16 09:00 09/06/16 08:59 08/16/16 08:53 2 SPRAYS Ondansetron HCl (Zofran Inj) 4 mg Q6H PRN IV 08/08/16 06:00 09/07/16 05:59 08/12/16 06:33 4 MG Al Hydroxide/Mg Hydroxide (Maalox Susp) 30 ml QID PRN PO 08/08/16 10:30 09/07/16 10:29 Hydromorphone HCl (Dilaudid Inj) 1 mg Q4H PRN IV 08/09/16 22:15 08/23/16 22:14 08/10/16 19:56 1 MG Insulin Aspart (novoLOG ASPART) SLIDING SCALE ACHS SC 08/11/16 08:00 09/10/16 07:59 08/16/16 13:09 2 UNITS Enteral Nutritional Formula (Boost) 1 can PC PO 08/11/16 09:00 09/10/16 08:59 08/16/16 13:09 1 CAN Ascorbic Acid (Vitamin C Tab) 500 mg BID PO 08/13/16 09:00 09/12/16 08:59 08/16/16 08:52 500 MG Calcitriol (Rocaltrol Cap) 0.25 mcg MoWeFr@0900 PO 08/14/16 09:00 09/13/16 08:59 08/16/16 08:52 0.25 MCG Cetirizine HCl (zyrTEC TAB) 5 mg DAILY PO 08/13/16 09:00 09/12/16 08:59 08/16/16 08:52 5 MG Lactobacillus Acidophilus (Floranex Tab) 4 tab TID PO 08/13/16 09:00 09/12/16 08:59 08/16/16 13:10 4 TAB Levothyroxine Sodium (Synthroid Tab) 75 mcg DAILYBB PO 08/13/16 06:00 09/12/16 05:59 08/16/16 06:25 75 MCG Multivitamins (Multivitamin Tab) 1 tab QAM PO 08/13/16 09:00 09/12/16 08:59 08/16/16 08:52 1 TAB Sertraline HCl (Zoloft Tab) 50 mg DAILY PO 08/13/16 09:00 09/12/16 08:59 08/16/16 08:52 50 MG Pantoprazole Sodium 40 mg 40 mg QAM PO 08/13/16 09:00 09/12/16 08:59 08/16/16 08:53 40 MG Imipenem/ Cilastatin Sodium/ Dextrose (Primaxin Iv/D5 100ml) 110 ml @ 100 mls/hr Q6H IV 08/14/16 19:00 08/24/16 18:59 08/16/16 13:09 100 MLS/HR Objective Vital Signs Date Time Temp Pulse Resp B/P Pulse Ox O2 Delivery O2 Flow Rate FiO2 08/16/16 15:35 36.9 97 18 108/73 96 Room Air 08/16/16 07:25 Room Air 08/16/16 07:14 36.6 88 16 104/65 95 Room Air 08/16/16 00:50 Room Air 08/15/16 23:30 36.6 81 18 120/71 97 Room Air 08/15/16 16:00 96 Room Air 08/15/16 15:59 36.6 61 18 97/60 96 Room Air Physical Exam General Appearance: no apparent distress Abdomen: normal bowel sounds, non tender, + pertinent finding (+colostomy functioning properly, MARIBEL drain in place, +wound vac) Laboratory Results Last 24 Hours Test 08/15/16 16:55 08/15/16 20:44 08/16/16 05:30 08/16/16 08:18 Bedside Glucose 97 mg/dl 116 mg/dl 101 mg/dl White Blood Count 13.68 K/uL Red Blood Count 3.21 M/uL Hemoglobin 9.0 g/dL Hematocrit 27.5 % Mean Corpuscular Volume 85.7 fL Mean Corpuscular Hemoglobin 28.0 pg Mean Corpuscular Hemoglobin Concent 32.7 g/dl RDW Standard Deviation 53.0 fL RDW Coefficient of Variation 17.0 % Platelet Count 441 K/uL Mean Platelet Volume 9.5 fL Sodium Level 142 mmol/L Potassium Level 5.2 mmol/L Chloride Level 107 mmol/L Carbon Dioxide Level 32 mmol/L Anion Gap 3.0 mmol/L Blood Urea Nitrogen 14 mg/dl Creatinine 0.82 mg/dl Est Creatinine Clear Calc Drug Dose 64.9 ml/min Estimated GFR () 84.0 Estimated GFR (Non- 72.5 BUN/Creatinine Ratio 16.6 Random Glucose 87 mg/dl Calcium Level 7.9 mg/dl Test 08/16/16 11:59 Bedside Glucose 117 mg/dl Assessment and Plan This is a 71 year old female with a PMH of COPD, CKD stage 3, hypothyroidism, DM2 presents with colon perforation s/p colostomy Colon CA s/p colon perforation s/p colostomy formation 08/16 patient is doing well today good PO intake continue IV abx. as per ID WBC down from 17k --> 13k plan for d/c as per surgery 08/15 s/p Emergent Exploratory Laparotomy, Bowel Resection, Creation of Colostomy, Left Salpingo-oophorectomy by Dr Powers on 07/30/16 appreciate ID input, Primaxin for a total of 14 days WBC still elevated, monitor CBC cultures have been negative pathology reveals 04/06 LN + for adenocarcinoma MARIBEL drain and wound vac still in place, draining colostomy functioning properly PT/OT; plan for rehab when okay with surgery septic shock post-operatively, initially intubated and on Levophed post-op; now doing better, BP controlled Fungemia Positive Yeast in Peritoneal Fluid +blood cultures for yeast on 08/01 was on Caspofungin for a total of 14 days echo = no valvular lesions noted repeat cultures negative Acute Blood Loss Anemia 08/16 Hgb stable, monitor daily 08/15 patient has had two units total of pRBCs during this admission hgb was down to around 7, transfused one unit and now up to 9.1 monitor H/H daily while inpatient Acute Kidney Injury superimposed on CKD stage 3 post-operatively dehydrated creatinine was up to 1.4, fluid resuscitation and now creatinine is back to baseline DM2, well controlled last Ha1c < 6% insulin sliding scale and monitor Hypothyroidism continue Synthroid DVT ppx Lovenox GI ppx Protonix FULL CODE
[2016-08-16 23:03] VITALS: BP 106/68; PULSE 86; TEMP 36.7; O2SAT 96
[2016-08-17] MEDS: IMIPENEM/CILASTATIN IV 500 MG in DEXTROSE 5% 100ML 100 ML IV SCH ×4 (00:12→18:28)
[2016-08-17] MEDS: IPRATROPIUM BROMIDE/ALBUTEROL respimat INH INH SCH ×5 (00:12→23:56)
[2016-08-17] MEDS: UMECLIDINIUM VILANTEROL INH SCH (05:50)
[2016-08-17] MEDS: LEVOTHYROXINE 75 MCG TAB PO SCH (06:21)
[2016-08-17 06:32] LABS: HEMATOCRIT 28.6 % (37-47); MEAN CELL VOLUME 85.6 fL (80-100); MEAN CORPUSCULAR HEMOGLOBIN 26.6 pg (25-34); MEAN CORPUSCULAR HGB CONC 31.1 g/dl (32-36); MEAN PLATELET VOLUME 9.2 fL (7.4-10.4); PLATELET COUNT 460 K/uL (130-400); RED BLOOD COUNT 3.34 M/uL (4.2-5.4); WHITE BLOOD COUNT 13.67 K/uL (4.8-10.8)
[2016-08-17 07:02] LABS: BUN/CREATININE RATIO 19.5 (10-20); CREATININE 0.64 mg/dl (0.60-1.20); POTASSIUM 4.9 mmol/L (3.5-5.1)
--- NOTE | 2016-08-17 07:21 | Surgery Progress Note ---
Surgery Progress Note Date of Service August 17, 2016. Subjective Post OP Day: 18 + bowel movement (ileostomy functioning), + flatus, No nausea, No vomiting Denies pain Objective Vital Signs: Date Time Temp Pulse Resp B/P Pulse Ox O2 Delivery O2 Flow Rate FiO2 08/16/16 23:59 Room Air 08/16/16 23:03 36.7 86 18 106/68 96 Room Air 08/16/16 16:20 Room Air 08/16/16 15:35 36.9 97 18 108/73 96 Room Air 08/16/16 07:25 Room Air Physical Exam: MARIBEL drainage (Right MARIBEL feel out last night, left still with serous drainage) Abdomen: normal bowel sounds, non tender (today), soft, + pertinent finding ( ostomy and mucus fistula appear healthy) Laboratory Results: Results Past 24 Hours Test 08/16/16 08:18 08/16/16 11:59 08/16/16 17:04 08/16/16 20:48 Range/Units Bedside Glucose 101 117 104 131 70-90 mg/dl Test 08/17/16 06:00 Range/Units White Blood Count 13.67 4.8-10.8 K/uL Red Blood Count 3.34 4.2-5.4 M/uL Hemoglobin 8.9 12.0-16.0 g/dL Hematocrit 28.6 37-47 % Mean Corpuscular Volume 85.6 80-100 fL Mean Corpuscular Hemoglobin 26.6 25-34 pg Mean Corpuscular Hemoglobin Concent 31.1 32-36 g/dl RDW Standard Deviation 51.2 36.4-46.3 fL RDW Coefficient of Variation 16.9 11.5-14.5 % Platelet Count 460 130-400 K/uL Mean Platelet Volume 9.2 7.4-10.4 fL Sodium Level 141 136-145 mmol/L Potassium Level 4.9 3.5-5.1 mmol/L Chloride Level 106 98-107 mmol/L Carbon Dioxide Level 30 21-32 mmol/L Anion Gap 5.0 3-11 mmol/L Blood Urea Nitrogen 12 7-18 mg/dl Creatinine 0.64 0.60-1.20 mg/dl Est Creatinine Clear Calc Drug Dose 83.1 ml/min Estimated GFR () 104.8 Estimated GFR (Non- 90.4 BUN/Creatinine Ratio 19.5 10-20 Random Glucose 81 70-99 mg/dl Calcium Level 8.0 8.5-10.1 mg/dl Assessment & Plan S/P right colectomy with ileostomy formation Pathology showed carcinoma, margins clear, 1/12 lymph nodes positive, shared with patient Stable hemodynamically Ostomy output good Tolerating soft diet Continue Boost Continue wound vac WBC stable today 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
[2016-08-17 07:33] VITALS: BP 117/72; PULSE 85; TEMP 37.1; O2SAT 94
[2016-08-17] MEDS: INSULIN ASPART 100 UNITS/ML 3 ML PEN SC SCH ×4 (08:00→20:45)
[2016-08-17] MEDS: BOOST VANILLA PO SCH ×6 (09:05→18:27)
[2016-08-17] MEDS: FLUTICASONE PROPIONATE NA SPR 16 GM BTL NAE SCH (09:05)
[2016-08-17] MEDS: CHLORHEXIDINE GLUCONATE 0.12% 480 ML MT SCH ×2 (09:07→20:44)
[2016-08-17] MEDS: PANTOprazole SOD 40 MG TAB PO SCH (09:10)
[2016-08-17] MEDS: ASCORBIC ACID 500 MG TAB PO SCH ×2 (09:10→20:45)
[2016-08-17] MEDS: CETIRIZINE HCL 10 MG TAB PO SCH (09:10)
[2016-08-17] MEDS: SERTRALINE HCL 50 MG TAB PO SCH (09:11)
[2016-08-17] MEDS: MULTIVITAMIN TAB PO SCH (09:11)
[2016-08-17] MEDS: LACTOBACILLUS ACIDOPHILUS (FLORANEX) TAB PO SCH ×3 (09:11→20:44)
[2016-08-17] MEDS: ENOXAPARIN 40 MG/0.4 ML SYR SQ SCH (09:11)
[2016-08-17 15:15] VITALS: BP 117/76; PULSE 82; TEMP 36.7; O2SAT 96
--- NOTE | 2016-08-17 17:48 | Progress Note ---
Subjective Date of Service: August 17, 2016. Subjective Pt evaluation today including: conversation w/ patient, physical exam, lab review, review of studies, review of inpatient medication list Saw/examined the patient in room 311 She's resting comfortably in a chair; good PO intake No nausea/vomiting No fevers/chills Problem List Medical Problems: (1) Closed head injury Status: Acute (2) Dehydration Status: Acute (3) Fall Status: Acute (4) Hypothermia Status: Acute (5) Perforated viscus Status: Acute (6) Perforation of cecum Status: Acute (7) Pressure ulcer Status: Acute (8) Rhabdomyolysis Status: Acute (9) Septic shock Status: Acute (10) UTI (urinary tract infection) Status: Acute Review of Systems Constitutional: No chills, No fever Respiratory: No shortness of breath Cardiac: No chest pain Abdomen: No nausea, No vomiting Medications Current Inpatient Medications Medications (Trade) Dose Ordered Sig/[place] Route Start Time Stop Time Status Last Admin Dose Admin Chlorhexidine Gluconate (Peridex Oral Soln) 15 ml BID MT 07/30/16 21:00 08/29/16 20:59 08/17/16 09:07 15 ML Glucose (Glucose 40% Gel) 15-30 GRAMS 15 GRAMS... UD PRN PO 07/30/16 14:45 08/29/16 14:44 Glucose (Glucose Chew Tab) 4-8 Tablets 4 Tabl... UD PRN PO 07/30/16 14:45 08/29/16 14:44 Dextrose (Dextrose 50% 50ML Syringe) 25-50ML OF 50% DW IV FOR... UD PRN IV 07/30/16 14:45 08/29/16 14:44 Glucagon (Glucagon Inj) 1 mg UD PRN SQ 07/30/16 14:45 08/29/16 14:44 Enoxaparin Sodium 40 mg 40 mg QAM SQ 08/01/16 09:00 08/31/16 08:59 08/17/16 09:11 40 MG Acetaminophen/ Empty Bag (Ofirmev Iv/ Empty Iv Bag 100ml) 65 ml @ 260 mls/hr Q6H PRN IV 08/01/16 09:15 08/31/16 09:14 08/15/16 01:00 260 MLS/HR Albuterol/ Ipratropium (Combivent Respimat Inh) 1 puffs Q6 INH 08/05/16 21:00 09/04/16 20:59 08/17/16 12:26 1 PUFFS Albuterol/ Ipratropium (Duoneb) 3 ml Q6R PRN INH 08/04/16 19:30 09/03/16 19:29 Fluticasone Propionate (Flonase Nasal [place]) 2 sprays DAILY MARI 08/07/16 09:00 09/06/16 08:59 08/17/16 09:05 2 SPRAYS Ondansetron HCl (Zofran Inj) 4 mg Q6H PRN IV 08/08/16 06:00 09/07/16 05:59 08/12/16 06:33 4 MG Al Hydroxide/Mg Hydroxide (Maalox Susp) 30 ml QID PRN PO 08/08/16 10:30 09/07/16 10:29 Hydromorphone HCl (Dilaudid Inj) 1 mg Q4H PRN IV 08/09/16 22:15 08/23/16 22:14 08/10/16 19:56 1 MG Insulin Aspart (novoLOG ASPART) SLIDING SCALE ACHS SC 08/11/16 08:00 09/10/16 07:59 08/17/16 12:40 2 UNITS Enteral Nutritional Formula (Boost) 1 can PC PO 08/11/16 09:00 09/10/16 08:59 08/17/16 12:26 1 CAN Ascorbic Acid (Vitamin C Tab) 500 mg BID PO 08/13/16 09:00 09/12/16 08:59 08/17/16 09:10 500 MG Calcitriol (Rocaltrol Cap) 0.25 mcg MoWeFr@0900 PO 08/14/16 09:00 09/13/16 08:59 08/16/16 08:52 0.25 MCG Cetirizine HCl (zyrTEC TAB) 5 mg DAILY PO 08/13/16 09:00 09/12/16 08:59 08/17/16 09:10 5 MG Lactobacillus Acidophilus (Floranex Tab) 4 tab TID PO 08/13/16 09:00 09/12/16 08:59 08/17/16 13:44 4 TAB Levothyroxine Sodium (Synthroid Tab) 75 mcg DAILYBB PO 08/13/16 06:00 09/12/16 05:59 08/17/16 06:21 75 MCG Multivitamins (Multivitamin Tab) 1 tab QAM PO 08/13/16 09:00 09/12/16 08:59 08/17/16 09:11 1 TAB Sertraline HCl (Zoloft Tab) 50 mg DAILY PO 08/13/16 09:00 09/12/16 08:59 08/17/16 09:11 50 MG Pantoprazole Sodium 40 mg 40 mg QAM PO 08/13/16 09:00 09/12/16 08:59 08/17/16 09:10 40 MG Imipenem/ Cilastatin Sodium/ Dextrose (Primaxin Iv/D5 100ml) 110 ml @ 100 mls/hr Q6H IV 08/14/16 19:00 08/24/16 18:59 08/17/16 12:26 100 MLS/HR Objective Vital Signs Date Time Temp Pulse Resp B/P Pulse Ox O2 Delivery O2 Flow Rate FiO2 08/17/16 15:15 36.7 82 18 117/76 96 Room Air 08/17/16 07:33 37.1 85 16 117/72 94 Room Air 08/17/16 07:15 Room Air 08/16/16 23:59 Room Air 08/16/16 23:03 36.7 86 18 106/68 96 Room Air Physical Exam General Appearance: no apparent distress Respiratory/Chest: no respiratory distress, no accessory muscle use Abdomen: + pertinent finding (+ostomy, functioning, MARIBEL drain removed; wound vac ) Neurologic/Psychiatric: no motor/sensory deficits, alert, normal mood/affect Laboratory Results Last 24 Hours Test 08/16/16 20:48 08/17/16 06:00 08/17/16 07:52 08/17/16 11:53 Bedside Glucose 131 mg/dl 84 mg/dl 110 mg/dl White Blood Count 13.67 K/uL Red Blood Count 3.34 M/uL Hemoglobin 8.9 g/dL Hematocrit 28.6 % Mean Corpuscular Volume 85.6 fL Mean Corpuscular Hemoglobin 26.6 pg Mean Corpuscular Hemoglobin Concent 31.1 g/dl RDW Standard Deviation 51.2 fL RDW Coefficient of Variation 16.9 % Platelet Count 460 K/uL Mean Platelet Volume 9.2 fL Sodium Level 141 mmol/L Potassium Level 4.9 mmol/L Chloride Level 106 mmol/L Carbon Dioxide Level 30 mmol/L Anion Gap 5.0 mmol/L Blood Urea Nitrogen 12 mg/dl Creatinine 0.64 mg/dl Est Creatinine Clear Calc Drug Dose 83.1 ml/min Estimated GFR () 104.8 Estimated GFR (Non- 90.4 BUN/Creatinine Ratio 19.5 Random Glucose 81 mg/dl Calcium Level 8.0 mg/dl Test 08/17/16 16:55 Bedside Glucose 97 mg/dl Assessment and Plan This is a 71 year old female with a PMH of COPD, CKD stage 3, hypothyroidism, DM2 presents with colon perforation s/p colostomy Colon CA s/p colon perforation s/p colostomy formation 08/17 WBC stable continue IV abx for a total of 14 days possible fistula? increased urinary frequency; already on Primaxin; may need urology input 08/16 patient is doing well today good PO intake continue IV abx. as per ID WBC down from 17k --> 13k plan for d/c as per surgery 08/15 s/p Emergent Exploratory Laparotomy, Bowel Resection, Creation of Colostomy, Left Salpingo-oophorectomy by Dr Powers on 07/30/16 appreciate ID input, Primaxin for a total of 14 days WBC still elevated, monitor CBC cultures have been negative pathology reveals 04/06 LN + for adenocarcinoma MARIBEL drain and wound vac still in place, draining colostomy functioning properly PT/OT; plan for rehab when okay with surgery septic shock post-operatively, initially intubated and on Levophed post-op; now doing better, BP controlled Fungemia Positive Yeast in Peritoneal Fluid +blood cultures for yeast on 08/01 was on Caspofungin for a total of 14 days echo = no valvular lesions noted repeat cultures negative Acute Blood Loss Anemia 08/16 Hgb stable, monitor daily 08/15 patient has had two units total of pRBCs during this admission hgb was down to around 7, transfused one unit and now up to 9.1 monitor H/H daily while inpatient Acute Kidney Injury superimposed on CKD stage 3 post-operatively dehydrated creatinine was up to 1.4, fluid resuscitation and now creatinine is back to baseline DM2, well controlled last Ha1c < 6% insulin sliding scale and monitor Hypothyroidism continue Synthroid DVT ppx Lovenox GI ppx Protonix FULL CODE
[2016-08-17 23:20] VITALS: BP 117/60; PULSE 87; TEMP 36.7; O2SAT 96
[2016-08-18] MEDS: IMIPENEM/CILASTATIN IV 500 MG in DEXTROSE 5% 100ML 100 ML IV SCH ×4 (00:45→18:51)
[2016-08-18] MEDS: IPRATROPIUM BROMIDE/ALBUTEROL respimat INH INH SCH ×3 (06:00→17:45)
[2016-08-18] MEDS: UMECLIDINIUM VILANTEROL INH SCH (06:00)
[2016-08-18] MEDS: LEVOTHYROXINE 75 MCG TAB PO SCH (06:01)
[2016-08-18 07:07] VITALS: BP 114/72; PULSE 92; TEMP 37.1; O2SAT 94
--- NOTE | 2016-08-18 07:07 | Surgery Progress Note ---
Surgery Progress Note Date of Service August 18, 2016. Subjective Post OP Day: 19 + bowel movement (ileostomy functioning), + diet (tolerating regular diet), + feeling well, No complaints, No nausea, No vomiting Objective Vital Signs: Date Time Temp Pulse Resp B/P Pulse Ox O2 Delivery O2 Flow Rate FiO2 08/18/16 00:00 Room Air 08/17/16 23:20 36.7 87 17 117/60 96 Room Air 08/17/16 16:13 Room Air 08/17/16 15:15 36.7 82 18 117/76 96 Room Air 08/17/16 07:33 37.1 85 16 117/72 94 Room Air 08/17/16 07:15 Room Air Physical Exam: MARIBEL drainage (serous) Abdomen: normal bowel sounds, non tender, non distended, soft, + pertinent finding (wound vac in place, no surrounding erythema) Laboratory Results: Results Past 24 Hours Test 08/17/16 07:52 08/17/16 11:53 08/17/16 16:55 08/17/16 20:33 Range/Units Bedside Glucose 84 110 97 146 70-90 mg/dl Assessment & Plan S/P right colectomy with ileostomy formation Pathology showed carcinoma, margins clear, 1/12 lymph nodes positive, shared with patient Stable hemodynamically Ostomy output good Tolerating soft diet Continue Boost Continue wound vac No evidence of peritonitis Continue IV antibiotics Continue PT Consider D/C to facility for early next week
[2016-08-18] MEDS: INSULIN ASPART 100 UNITS/ML 3 ML PEN SC SCH ×4 (08:00→20:57)
[2016-08-18] MEDS: BOOST VANILLA PO SCH ×6 (08:49→17:46)
[2016-08-18] MEDS: FLUTICASONE PROPIONATE NA SPR 16 GM BTL NAE SCH (08:51)
[2016-08-18] MEDS: CHLORHEXIDINE GLUCONATE 0.12% 480 ML MT SCH ×2 (08:51→20:56)
[2016-08-18] MEDS: ASCORBIC ACID 500 MG TAB PO SCH ×2 (08:53→20:57)
[2016-08-18] MEDS: CETIRIZINE HCL 10 MG TAB PO SCH (08:53)
[2016-08-18] MEDS: CALCITRIOL 0.25 MCG CAP PO SCH (08:54)
[2016-08-18] MEDS: LACTOBACILLUS ACIDOPHILUS (FLORANEX) TAB PO SCH ×3 (08:54→20:56)
[2016-08-18] MEDS: MULTIVITAMIN TAB PO SCH (08:54)
[2016-08-18] MEDS: SERTRALINE HCL 50 MG TAB PO SCH (08:54)
[2016-08-18] MEDS: PANTOprazole SOD 40 MG TAB PO SCH (08:55)
[2016-08-18] MEDS: ENOXAPARIN 40 MG/0.4 ML SYR SQ SCH (08:55)
[2016-08-18] MEDS: ACETAMINOPHEN IV 650 MG in EMPTY BAG 0 ML IV PRN (10:00)
[2016-08-18 15:00] VITALS: BP 123/70; PULSE 84; TEMP 36.7; O2SAT 96
--- NOTE | 2016-08-18 21:07 | Progress Note ---
Subjective Date of Service: August 18, 2016. Subjective Pt evaluation today including: conversation w/ patient, physical exam, lab review, review of studies, review of inpatient medication list Saw/examined the patient in room 311 Good PO intake, no nausea/vomiting +ostomy, no other issues to note, no fevers Problem List Medical Problems: (1) Closed head injury Status: Acute (2) Dehydration Status: Acute (3) Fall Status: Acute (4) Hypothermia Status: Acute (5) Perforated viscus Status: Acute (6) Perforation of cecum Status: Acute (7) Pressure ulcer Status: Acute (8) Rhabdomyolysis Status: Acute (9) Septic shock Status: Acute (10) UTI (urinary tract infection) Status: Acute Review of Systems Constitutional: No chills, No fever Respiratory: No shortness of breath Cardiac: No chest pain Abdomen: No nausea, No pain, No vomiting Medications Current Inpatient Medications Medications (Trade) Dose Ordered Sig/[place] Route Start Time Stop Time Status Last Admin Dose Admin Chlorhexidine Gluconate (Peridex Oral Soln) 15 ml BID MT 07/30/16 21:00 08/29/16 20:59 08/18/16 20:56 15 ML Glucose (Glucose 40% Gel) 15-30 GRAMS 15 GRAMS... UD PRN PO 07/30/16 14:45 08/29/16 14:44 Glucose (Glucose Chew Tab) 4-8 Tablets 4 Tabl... UD PRN PO 07/30/16 14:45 08/29/16 14:44 Dextrose (Dextrose 50% 50ML Syringe) 25-50ML OF 50% DW IV FOR... UD PRN IV 07/30/16 14:45 08/29/16 14:44 Glucagon (Glucagon Inj) 1 mg UD PRN SQ 07/30/16 14:45 08/29/16 14:44 Enoxaparin Sodium 40 mg 40 mg QAM SQ 08/01/16 09:00 08/31/16 08:59 08/18/16 08:55 40 MG Acetaminophen/ Empty Bag (Ofirmev Iv/ Empty Iv Bag 100ml) 65 ml @ 260 mls/hr Q6H PRN IV 08/01/16 09:15 08/31/16 09:14 08/18/16 10:00 260 MLS/HR Albuterol/ Ipratropium (Combivent Respimat Inh) 1 puffs Q6 INH 08/05/16 21:00 09/04/16 20:59 08/18/16 17:45 1 PUFFS Albuterol/ Ipratropium (Duoneb) 3 ml Q6R PRN INH 08/04/16 19:30 09/03/16 19:29 Fluticasone Propionate (Flonase Nasal [place]) 2 sprays DAILY MARI 08/07/16 09:00 09/06/16 08:59 08/18/16 08:51 2 SPRAYS Ondansetron HCl (Zofran Inj) 4 mg Q6H PRN IV 08/08/16 06:00 09/07/16 05:59 08/12/16 06:33 4 MG Al Hydroxide/Mg Hydroxide (Maalox Susp) 30 ml QID PRN PO 08/08/16 10:30 09/07/16 10:29 Hydromorphone HCl (Dilaudid Inj) 1 mg Q4H PRN IV 08/09/16 22:15 08/23/16 22:14 08/10/16 19:56 1 MG Insulin Aspart (novoLOG ASPART) SLIDING SCALE ACHS SC 08/11/16 08:00 09/10/16 07:59 08/18/16 17:49 4 UNITS Enteral Nutritional Formula (Boost) 1 can PC PO 08/11/16 09:00 09/10/16 08:59 08/18/16 17:46 1 CAN Ascorbic Acid (Vitamin C Tab) 500 mg BID PO 08/13/16 09:00 09/12/16 08:59 08/18/16 20:57 500 MG Calcitriol (Rocaltrol Cap) 0.25 mcg MoWeFr@0900 PO 08/14/16 09:00 09/13/16 08:59 08/18/16 08:54 0.25 MCG Cetirizine HCl (zyrTEC TAB) 5 mg DAILY PO 08/13/16 09:00 09/12/16 08:59 08/18/16 08:53 5 MG Lactobacillus Acidophilus (Floranex Tab) 4 tab TID PO 08/13/16 09:00 09/12/16 08:59 08/18/16 20:56 4 TAB Levothyroxine Sodium (Synthroid Tab) 75 mcg DAILYBB PO 08/13/16 06:00 09/12/16 05:59 08/18/16 06:01 75 MCG Multivitamins (Multivitamin Tab) 1 tab QAM PO 08/13/16 09:00 09/12/16 08:59 08/18/16 08:54 1 TAB Sertraline HCl (Zoloft Tab) 50 mg DAILY PO 08/13/16 09:00 09/12/16 08:59 08/18/16 08:54 50 MG Pantoprazole Sodium 40 mg 40 mg QAM PO 08/13/16 09:00 09/12/16 08:59 08/18/16 08:55 40 MG Imipenem/ Cilastatin Sodium/ Dextrose (Primaxin Iv/D5 100ml) 110 ml @ 100 mls/hr Q6H IV 08/14/16 19:00 08/24/16 18:59 08/18/16 18:51 100 MLS/HR Objective Vital Signs Date Time Temp Pulse Resp B/P Pulse Ox O2 Delivery O2 Flow Rate FiO2 08/18/16 16:13 Room Air 08/18/16 15:00 36.7 84 17 123/70 96 Room Air 08/18/16 07:50 Room Air 08/18/16 07:07 37.1 92 17 114/72 94 Room Air 08/18/16 00:00 Room Air 08/17/16 23:20 36.7 87 17 117/60 96 Room Air Physical Exam General Appearance: no apparent distress Respiratory/Chest: no respiratory distress, no accessory muscle use Abdomen: non tender, soft, + pertinent finding (+ostomy functioning, wound vac) Extremities: no pedal edema Neurologic/Psychiatric: senior systems developer II-XII nml as tested, no motor/sensory deficits, alert, normal mood/affect, oriented x 3 Laboratory Results Last 24 Hours Test 08/18/16 08:05 08/18/16 12:01 08/18/16 17:09 Bedside Glucose 92 mg/dl 99 mg/dl 107 mg/dl Assessment and Plan This is a 71 year old female with a PMH of COPD, CKD stage 3, hypothyroidism, DM2 presents with colon perforation s/p colostomy Colon CA s/p colon perforation s/p colostomy formation 08/18 continue Primaxin Hgb trending down, 8.9 on 08/17 recheck CBC in AM 08/17 WBC stable continue IV abx for a total of 14 days possible fistula? increased urinary frequency; already on Primaxin; may need urology input 08/16 patient is doing well today good PO intake continue IV abx. as per ID WBC down from 17k --> 13k plan for d/c as per surgery 08/15 s/p Emergent Exploratory Laparotomy, Bowel Resection, Creation of Colostomy, Left Salpingo-oophorectomy by Dr Powers on 07/30/16 appreciate ID input, Primaxin for a total of 14 days WBC still elevated, monitor CBC cultures have been negative pathology reveals 04/06 LN + for adenocarcinoma MARIBEL drain and wound vac still in place, draining colostomy functioning properly PT/OT; plan for rehab when okay with surgery septic shock post-operatively, initially intubated and on Levophed post-op; now doing better, BP controlled Fungemia Positive Yeast in Peritoneal Fluid +blood cultures for yeast on 08/01 was on Caspofungin for a total of 14 days echo = no valvular lesions noted repeat cultures negative Acute Blood Loss Anemia 08/18 check H/H in AM 08/16 Hgb stable, monitor daily 08/15 patient has had two units total of pRBCs during this admission hgb was down to around 7, transfused one unit and now up to 9.1 monitor H/H daily while inpatient Acute Kidney Injury superimposed on CKD stage 3 post-operatively dehydrated creatinine was up to 1.4, fluid resuscitation and now creatinine is back to baseline DM2, well controlled last Ha1c < 6% insulin sliding scale and monitor Hypothyroidism continue Synthroid DVT ppx Lovenox GI ppx Protonix FULL CODE
[2016-08-18 22:45] VITALS: BP 107/68; PULSE 93; TEMP 36.8; O2SAT 96
[2016-08-19] MEDS: IPRATROPIUM BROMIDE/ALBUTEROL respimat INH INH SCH ×4 (00:09→18:25)
[2016-08-19] MEDS: IMIPENEM/CILASTATIN IV 500 MG in DEXTROSE 5% 100ML 100 ML IV SCH ×4 (01:44→18:40)
[2016-08-19] MEDS: UMECLIDINIUM VILANTEROL INH SCH (06:14)
[2016-08-19] MEDS: LEVOTHYROXINE 75 MCG TAB PO SCH (06:14)
[2016-08-19 06:30] LABS: HEMATOCRIT 28.8 % (37-47); MEAN CELL VOLUME 85.7 fL (80-100); MEAN CORPUSCULAR HEMOGLOBIN 26.8 pg (25-34); MEAN CORPUSCULAR HGB CONC 31.3 g/dl (32-36); MEAN PLATELET VOLUME 9.2 fL (7.4-10.4); PLATELET COUNT 519 K/uL (130-400); RED BLOOD COUNT 3.36 M/uL (4.2-5.4); WHITE BLOOD COUNT 15.39 K/uL (4.8-10.8)
--- NOTE | 2016-08-19 06:52 | Surgery Progress Note ---
Surgery Progress Note Date of Service August 19, 2016. Subjective + feeling well, No nausea, No vomiting urinary frequency- good volume Objective Vital Signs: Date Time Temp Pulse Resp B/P Pulse Ox O2 Delivery O2 Flow Rate FiO2 08/18/16 23:55 Room Air 08/18/16 22:45 36.8 93 16 107/68 96 Room Air 08/18/16 16:13 Room Air 08/18/16 15:00 36.7 84 17 123/70 96 Room Air 08/18/16 07:50 Room Air 08/18/16 07:07 37.1 92 17 114/72 94 Room Air General Appearance: no apparent distress Respiratory/Chest: no respiratory distress Abdomen: non tender (no erythema around wound vac, drain serous), soft Laboratory Results: Results Past 24 Hours Test 08/18/16 08:05 08/18/16 12:01 08/18/16 17:09 08/18/16 20:54 Range/Units Bedside Glucose 92 99 107 124 70-90 mg/dl Test 08/19/16 05:52 Range/Units White Blood Count 15.39 4.8-10.8 K/uL Red Blood Count 3.36 4.2-5.4 M/uL Hemoglobin 9.0 12.0-16.0 g/dL Hematocrit 28.8 37-47 % Mean Corpuscular Volume 85.7 80-100 fL Mean Corpuscular Hemoglobin 26.8 25-34 pg Mean Corpuscular Hemoglobin Concent 31.3 32-36 g/dl RDW Standard Deviation 52.4 36.4-46.3 fL RDW Coefficient of Variation 16.9 11.5-14.5 % Platelet Count 519 130-400 K/uL Mean Platelet Volume 9.2 7.4-10.4 fL Assessment & Plan 08/19/16- normal affect- seems to be doing well- cont diet check u/a with c/o frequency- cont atbx, supportive care
[2016-08-19 07:06] LABS: BUN/CREATININE RATIO 18.7 (10-20); CALCIUM 8.1 mg/dl (8.5-10.1); CREATININE 0.61 mg/dl (0.60-1.20); POTASSIUM 4.4 mmol/L (3.5-5.1)
[2016-08-19 07:29] VITALS: BP 115/73; PULSE 88; TEMP 37.1; O2SAT 95
[2016-08-19 09:00] VITALS: O2SAT 95
[2016-08-19] MEDS: INSULIN ASPART 100 UNITS/ML 3 ML PEN SC SCH ×4 (09:13→21:00)
[2016-08-19] MEDS: FLUTICASONE PROPIONATE NA SPR 16 GM BTL NAE SCH (09:13)
[2016-08-19] MEDS: LACTOBACILLUS ACIDOPHILUS (FLORANEX) TAB PO SCH ×3 (09:14→21:19)
[2016-08-19] MEDS: SERTRALINE HCL 50 MG TAB PO SCH (09:14)
[2016-08-19] MEDS: PANTOprazole SOD 40 MG TAB PO SCH (09:14)
[2016-08-19] MEDS: CETIRIZINE HCL 10 MG TAB PO SCH (09:15)
[2016-08-19] MEDS: ASCORBIC ACID 500 MG TAB PO SCH ×2 (09:15→21:21)
[2016-08-19] MEDS: MULTIVITAMIN TAB PO SCH (09:15)
[2016-08-19] MEDS: CHLORHEXIDINE GLUCONATE 0.12% 480 ML MT SCH ×2 (09:17→21:54)
[2016-08-19] MEDS: ENOXAPARIN 40 MG/0.4 ML SYR SQ SCH (09:30)
[2016-08-19 11:09] LABS: URINE APPEARANCE CLEAR (CLEAR); URINE BILIRUBIN NEG (NEG); URINE COLOR YELLOW; URINE NITRITE NEG (NEG); URINE SPECIFIC GRAVITY 1.008 (1.000-1.030); UROBILINOGEN NEG (NEG)
[2016-08-19 11:11] LABS: MANUAL MICROSCOPIC REQUIRED? NO; REVIEW REQ? NO
[2016-08-19] MEDS: BOOST VANILLA PO SCH ×6 (13:00→18:25)
[2016-08-19 15:50] VITALS: BP 111/68; PULSE 108; TEMP 36.7; O2SAT 93
--- NOTE | 2016-08-19 16:18 | Progress Note ---
Subjective Date of Service: August 19, 2016. Subjective Pt evaluation today including: conversation w/ patient, physical exam, lab review, review of studies, review of inpatient medication list Saw/examined the patient in room 311 c/o urinary frequency tired today. No pain, no problems with PO intake. Problem List Medical Problems: (1) Closed head injury Status: Acute (2) Dehydration Status: Acute (3) Fall Status: Acute (4) Hypothermia Status: Acute (5) Perforated viscus Status: Acute (6) Perforation of cecum Status: Acute (7) Pressure ulcer Status: Acute (8) Rhabdomyolysis Status: Acute (9) Septic shock Status: Acute (10) UTI (urinary tract infection) Status: Acute Review of Systems Constitutional: No chills, No fever Respiratory: No shortness of breath Cardiac: No chest pain Abdomen: No nausea, No pain, No vomiting Female : + urinary frequency, No dysuria, No hematuria, No incontinence Medications Current Inpatient Medications Medications (Trade) Dose Ordered Sig/[place] Route Start Time Stop Time Status Last Admin Dose Admin Chlorhexidine Gluconate (Peridex Oral Soln) 15 ml BID MT 07/30/16 21:00 08/29/16 20:59 08/19/16 09:17 15 ML Glucose (Glucose 40% Gel) 15-30 GRAMS 15 GRAMS... UD PRN PO 07/30/16 14:45 08/29/16 14:44 Glucose (Glucose Chew Tab) 4-8 Tablets 4 Tabl... UD PRN PO 07/30/16 14:45 08/29/16 14:44 Dextrose (Dextrose 50% 50ML Syringe) 25-50ML OF 50% DW IV FOR... UD PRN IV 07/30/16 14:45 08/29/16 14:44 Glucagon (Glucagon Inj) 1 mg UD PRN SQ 07/30/16 14:45 08/29/16 14:44 Enoxaparin Sodium 40 mg 40 mg QAM SQ 08/01/16 09:00 08/31/16 08:59 08/19/16 09:30 40 MG Acetaminophen/ Empty Bag (Ofirmev Iv/ Empty Iv Bag 100ml) 65 ml @ 260 mls/hr Q6H PRN IV 08/01/16 09:15 08/31/16 09:14 08/18/16 10:00 260 MLS/HR Albuterol/ Ipratropium (Combivent Respimat Inh) 1 puffs Q6 INH 08/05/16 21:00 09/04/16 20:59 08/19/16 13:28 1 PUFFS Albuterol/ Ipratropium (Duoneb) 3 ml Q6R PRN INH 08/04/16 19:30 09/03/16 19:29 Fluticasone Propionate (Flonase Nasal [place]) 2 sprays DAILY MARI 08/07/16 09:00 09/06/16 08:59 08/19/16 09:13 2 SPRAYS Ondansetron HCl (Zofran Inj) 4 mg Q6H PRN IV 08/08/16 06:00 09/07/16 05:59 08/12/16 06:33 4 MG Al Hydroxide/Mg Hydroxide (Maalox Susp) 30 ml QID PRN PO 08/08/16 10:30 09/07/16 10:29 Hydromorphone HCl (Dilaudid Inj) 1 mg Q4H PRN IV 08/09/16 22:15 08/23/16 22:14 08/10/16 19:56 1 MG Insulin Aspart (novoLOG ASPART) SLIDING SCALE ACHS SC 08/11/16 08:00 09/10/16 07:59 08/19/16 09:13 2 UNITS Enteral Nutritional Formula (Boost) 1 can PC PO 08/11/16 09:00 09/10/16 08:59 08/19/16 13:00 1 CAN Ascorbic Acid (Vitamin C Tab) 500 mg BID PO 08/13/16 09:00 09/12/16 08:59 08/19/16 09:15 500 MG Calcitriol (Rocaltrol Cap) 0.25 mcg MoWeFr@0900 PO 08/14/16 09:00 09/13/16 08:59 08/18/16 08:54 0.25 MCG Cetirizine HCl (zyrTEC TAB) 5 mg DAILY PO 08/13/16 09:00 09/12/16 08:59 08/19/16 09:15 5 MG Lactobacillus Acidophilus (Floranex Tab) 4 tab TID PO 08/13/16 09:00 09/12/16 08:59 08/19/16 13:29 4 TAB Levothyroxine Sodium (Synthroid Tab) 75 mcg DAILYBB PO 08/13/16 06:00 09/12/16 05:59 08/19/16 06:14 75 MCG Multivitamins (Multivitamin Tab) 1 tab QAM PO 08/13/16 09:00 09/12/16 08:59 08/19/16 09:15 1 TAB Sertraline HCl (Zoloft Tab) 50 mg DAILY PO 08/13/16 09:00 09/12/16 08:59 08/19/16 09:14 50 MG Pantoprazole Sodium 40 mg 40 mg QAM PO 08/13/16 09:00 09/12/16 08:59 08/19/16 09:14 40 MG Imipenem/ Cilastatin Sodium/ Dextrose (Primaxin Iv/D5 100ml) 110 ml @ 100 mls/hr Q6H IV 08/14/16 19:00 08/24/16 18:59 08/19/16 13:30 100 MLS/HR Objective Vital Signs Date Time Temp Pulse Resp B/P Pulse Ox O2 Delivery O2 Flow Rate FiO2 08/19/16 09:00 95 Room Air 08/19/16 07:29 37.1 88 17 115/73 95 Room Air 08/18/16 23:55 Room Air 08/18/16 22:45 36.8 93 16 107/68 96 Room Air 08/18/16 16:13 Room Air Physical Exam General Appearance: no apparent distress Respiratory/Chest: no respiratory distress, no accessory muscle use Abdomen: normal bowel sounds, non tender, soft, + pertinent finding (+ostomy, + wound vac) Laboratory Results Last 24 Hours Test 08/18/16 17:09 08/18/16 20:54 08/19/16 05:52 08/19/16 08:08 Bedside Glucose 107 mg/dl 124 mg/dl 92 mg/dl White Blood Count 15.39 K/uL Red Blood Count 3.36 M/uL Hemoglobin 9.0 g/dL Hematocrit 28.8 % Mean Corpuscular Volume 85.7 fL Mean Corpuscular Hemoglobin 26.8 pg Mean Corpuscular Hemoglobin Concent 31.3 g/dl RDW Standard Deviation 52.4 fL RDW Coefficient of Variation 16.9 % Platelet Count 519 K/uL Mean Platelet Volume 9.2 fL Sodium Level 140 mmol/L Potassium Level 4.4 mmol/L Chloride Level 104 mmol/L Carbon Dioxide Level 28 mmol/L Anion Gap 8.0 mmol/L Blood Urea Nitrogen 11 mg/dl Creatinine 0.61 mg/dl Est Creatinine Clear Calc Drug Dose 87.2 ml/min Estimated GFR () 106.5 Estimated GFR (Non- 91.9 BUN/Creatinine Ratio 18.7 Random Glucose 87 mg/dl Calcium Level 8.1 mg/dl Test 08/19/16 10:35 08/19/16 12:10 Urine Color YELLOW Urine Appearance CLEAR Urine pH 7.0 Urine Specific [place] 1.008 Urine Protein NEG Urine Glucose (UA) NEG Urine Ketones TRACE Urine Occult Blood NEG Urine Nitrite NEG Urine Bilirubin NEG Urine Urobilinogen NEG Urine Leukocyte Esterase NEG Bedside Glucose 111 mg/dl Assessment and Plan This is a 71 year old female with a PMH of COPD, CKD stage 3, hypothyroidism, DM2 presents with colon perforation s/p colostomy Colon CA s/p colon perforation s/p colostomy formation 08/19 continue Primaxin as per ID may need urology consultation for urinary frequency 08/18 continue Primaxin Hgb trending down, 8.9 on 08/17 recheck CBC in AM 08/17 WBC stable continue IV abx for a total of 14 days possible fistula? increased urinary frequency; already on Primaxin; may need urology input 08/16 patient is doing well today good PO intake continue IV abx. as per ID WBC down from 17k --> 13k plan for d/c as per surgery 08/15 s/p Emergent Exploratory Laparotomy, Bowel Resection, Creation of Colostomy, Left Salpingo-oophorectomy by Dr Powers on 07/30/16 appreciate ID input, Primaxin for a total of 14 days WBC still elevated, monitor CBC cultures have been negative pathology reveals 04/06 LN + for adenocarcinoma MARIBEL drain and wound vac still in place, draining colostomy functioning properly PT/OT; plan for rehab when okay with surgery septic shock post-operatively, initially intubated and on Levophed post-op; now doing better, BP controlled Fungemia Positive Yeast in Peritoneal Fluid +blood cultures for yeast on 08/01 was on Caspofungin for a total of 14 days echo = no valvular lesions noted repeat cultures negative Acute Blood Loss Anemia 08/18 check H/H in AM 08/16 Hgb stable, monitor daily 08/15 patient has had two units total of pRBCs during this admission hgb was down to around 7, transfused one unit and now up to 9.1 monitor H/H daily while inpatient Acute Kidney Injury superimposed on CKD stage 3 post-operatively dehydrated creatinine was up to 1.4, fluid resuscitation and now creatinine is back to baseline DM2, well controlled last Ha1c < 6% insulin sliding scale and monitor Hypothyroidism continue Synthroid DVT ppx Lovenox GI ppx Protonix FULL CODE
[2016-08-19 23:05] VITALS: BP 94/60; PULSE 84; TEMP 37; O2SAT 97
[2016-08-20] MEDS: IPRATROPIUM BROMIDE/ALBUTEROL respimat INH INH SCH ×5 (00:04→23:34)
[2016-08-20] MEDS: IMIPENEM/CILASTATIN IV 500 MG in DEXTROSE 5% 100ML 100 ML IV SCH ×4 (01:24→19:53)
[2016-08-20] MEDS: UMECLIDINIUM VILANTEROL INH SCH (05:57)
[2016-08-20] MEDS: LEVOTHYROXINE 75 MCG TAB PO SCH (05:59)
[2016-08-20 06:06] LABS: HEMATOCRIT 28.9 % (37-47); MEAN CELL VOLUME 85.8 fL (80-100); MEAN CORPUSCULAR HGB CONC 31.5 g/dl (32-36); MEAN PLATELET VOLUME 9.2 fL (7.4-10.4); PLATELET COUNT 546 K/uL (130-400); RED BLOOD COUNT 3.37 M/uL (4.2-5.4)
--- NOTE | 2016-08-20 06:25 | Surgery Progress Note ---
Surgery Progress Note Date of Service August 20, 2016. Subjective afeb, feels ok, getting stronger U/A negative Objective Vital Signs: Date Time Temp Pulse Resp B/P Pulse Ox O2 Delivery O2 Flow Rate FiO2 08/19/16 23:45 Room Air 08/19/16 23:05 37.0 84 18 94/60 97 Room Air 08/19/16 15:50 36.7 108 16 111/68 93 Room Air 08/19/16 15:25 Room Air 08/19/16 09:00 95 Room Air 08/19/16 07:29 37.1 88 17 115/73 95 Room Air General Appearance: no apparent distress Respiratory/Chest: no respiratory distress Abdomen: non distended, soft Incision(s): intact (wound vac in place) Laboratory Results: Results Past 24 Hours Test 08/19/16 08:08 08/19/16 10:35 08/19/16 12:10 08/19/16 17:19 Range/Units Bedside Glucose 92 111 105 70-90 mg/dl Urine Color YELLOW Urine Appearance CLEAR CLEAR Urine pH 7.0 4.5-7.5 Urine Specific [place] 1.008 1.000-1.030 Urine Protein NEG NEG Urine Glucose (UA) NEG NEG Urine Ketones TRACE NEG Urine Occult Blood NEG NEG Urine Nitrite NEG NEG Urine Bilirubin NEG NEG Urine Urobilinogen NEG NEG Urine Leukocyte Esterase NEG NEG Test 08/19/16 20:58 08/20/16 05:32 Range/Units Bedside Glucose 148 70-90 mg/dl White Blood Count 15.20 4.8-10.8 K/uL Red Blood Count 3.37 4.2-5.4 M/uL Hemoglobin 9.1 12.0-16.0 g/dL Hematocrit 28.9 37-47 % Mean Corpuscular Volume 85.8 80-100 fL Mean Corpuscular Hemoglobin 27.0 25-34 pg Mean Corpuscular Hemoglobin Concent 31.5 32-36 g/dl RDW Standard Deviation 52.3 36.4-46.3 fL RDW Coefficient of Variation 16.8 11.5-14.5 % Platelet Count 546 130-400 K/uL Mean Platelet Volume 9.2 7.4-10.4 fL Assessment & Plan 08/20/16- progressing slowly, stronger. Cont wound care IV atbx, supportive care rehab ? 08/19/16- normal affect- seems to be doing well- cont diet check u/a with c/o frequency- cont atbx, supportive care 08/19/16- normal affect- seems to be doing well- cont diet check u/a with c/o frequency- cont atbx, supportive care
[2016-08-20 06:52] LABS: BUN/CREATININE RATIO 19.2 (10-20); CALCIUM 8.2 mg/dl (8.5-10.1); CREATININE 0.57 mg/dl (0.60-1.20); POTASSIUM 4.3 mmol/L (3.5-5.1)
[2016-08-20 07:25] VITALS: BP 110/70; PULSE 86; TEMP 37.1; O2SAT 96
[2016-08-20] MEDS: ASCORBIC ACID 500 MG TAB PO SCH ×2 (09:31→21:07)
[2016-08-20] MEDS: SERTRALINE HCL 50 MG TAB PO SCH (09:31)
[2016-08-20] MEDS: LACTOBACILLUS ACIDOPHILUS (FLORANEX) TAB PO SCH ×3 (09:31→21:06)
[2016-08-20] MEDS: MULTIVITAMIN TAB PO SCH (09:32)
[2016-08-20] MEDS: PANTOprazole SOD 40 MG TAB PO SCH (09:32)
[2016-08-20] MEDS: CETIRIZINE HCL 10 MG TAB PO SCH (09:33)
[2016-08-20] MEDS: ENOXAPARIN 40 MG/0.4 ML SYR SQ SCH (09:34)
[2016-08-20] MEDS: CHLORHEXIDINE GLUCONATE 0.12% 480 ML MT SCH ×2 (09:35→21:06)
[2016-08-20] MEDS: FLUTICASONE PROPIONATE NA SPR 16 GM BTL NAE SCH (09:35)
[2016-08-20] MEDS: BOOST VANILLA PO SCH ×6 (09:43→18:14)
[2016-08-20] MEDS: INSULIN ASPART 100 UNITS/ML 3 ML PEN SC SCH ×4 (09:44→21:00)
[2016-08-20 15:55] VITALS: BP 109/65; PULSE 102; TEMP 36.7; O2SAT 94
[2016-08-20 23:15] VITALS: BP 101/65; PULSE 80; TEMP 36.7; O2SAT 96
[2016-08-21] MEDS: IMIPENEM/CILASTATIN IV 500 MG in DEXTROSE 5% 100ML 100 ML IV SCH ×4 (01:14→18:32)
[2016-08-21] MEDS: LEVOTHYROXINE 75 MCG TAB PO SCH (06:08)
[2016-08-21] MEDS: UMECLIDINIUM VILANTEROL INH SCH (06:09)
[2016-08-21] MEDS: IPRATROPIUM BROMIDE/ALBUTEROL respimat INH INH SCH ×4 (06:09→23:39)
--- NOTE | 2016-08-21 06:29 | Surgery Progress Note ---
Surgery Progress Note Date of Service August 21, 2016. Subjective awake , alert- no complaints Objective Vital Signs: Date Time Temp Pulse Resp B/P Pulse Ox O2 Delivery O2 Flow Rate FiO2 08/20/16 23:30 Room Air 08/20/16 23:15 36.7 80 16 101/65 96 Room Air 08/20/16 15:55 36.7 102 16 109/65 94 Room Air 08/20/16 15:30 Room Air 08/20/16 09:20 Room Air 08/20/16 07:25 37.1 86 16 110/70 96 Room Air General Appearance: no apparent distress Respiratory/Chest: no respiratory distress Abdomen: soft Incision(s): intact (vac in place) Laboratory Results: Results Past 24 Hours Test 08/20/16 08:15 08/20/16 12:00 08/20/16 16:52 08/20/16 20:58 Range/Units Bedside Glucose 93 121 107 145 70-90 mg/dl Assessment & Plan 08/21/16- doing well-should be able to go to rehab tomorrow leave drain for now and cont IV atbx 08/20/16- progressing slowly, stronger. Cont wound care IV atbx, supportive care rehab ? e 08/19/16- normal affect- seems to be doing well- cont diet check u/a with c/o frequency- cont atbx, supportive care 08/20/16- progressing slowly, stronger. Cont wound care IV atbx, supportive care rehab ? 08/19/16- normal affect- seems to be doing well- cont diet check u/a with c/o frequency- cont atbx, supportive care
[2016-08-21 07:39] VITALS: BP 112/69; PULSE 86; TEMP 36.8; O2SAT 95
[2016-08-21] MEDS: SERTRALINE HCL 50 MG TAB PO SCH (08:42)
[2016-08-21] MEDS: MULTIVITAMIN TAB PO SCH (08:42)
[2016-08-21] MEDS: ASCORBIC ACID 500 MG TAB PO SCH ×2 (08:42→20:53)
[2016-08-21] MEDS: CALCITRIOL 0.25 MCG CAP PO SCH (08:42)
[2016-08-21] MEDS: PANTOprazole SOD 40 MG TAB PO SCH (08:42)
[2016-08-21] MEDS: LACTOBACILLUS ACIDOPHILUS (FLORANEX) TAB PO SCH ×3 (08:43→20:52)
[2016-08-21] MEDS: FLUTICASONE PROPIONATE NA SPR 16 GM BTL NAE SCH (08:43)
[2016-08-21] MEDS: CETIRIZINE HCL 10 MG TAB PO SCH (08:43)
[2016-08-21] MEDS: ENOXAPARIN 40 MG/0.4 ML SYR SQ SCH (08:44)
[2016-08-21] MEDS: CHLORHEXIDINE GLUCONATE 0.12% 480 ML MT SCH ×2 (08:44→20:53)
[2016-08-21] MEDS: INSULIN ASPART 100 UNITS/ML 3 ML PEN SC SCH ×4 (08:45→20:50)
[2016-08-21] MEDS: BOOST VANILLA PO SCH ×6 (08:56→18:18)
[2016-08-21 15:29] VITALS: BP 118/74; PULSE 67; TEMP 36.7; O2SAT 95
[2016-08-21 23:25] VITALS: BP 113/75; PULSE 89; TEMP 36.6; O2SAT 95
[2016-08-22] MEDS: IMIPENEM/CILASTATIN IV 500 MG in DEXTROSE 5% 100ML 100 ML IV SCH ×4 (01:03→18:24)
[2016-08-22] MEDS: LEVOTHYROXINE 75 MCG TAB PO SCH (06:06)
[2016-08-22] MEDS: UMECLIDINIUM VILANTEROL INH SCH (06:06)
[2016-08-22] MEDS: IPRATROPIUM BROMIDE/ALBUTEROL respimat INH INH SCH ×3 (06:06→18:18)
[2016-08-22 07:45] VITALS: BP 105/64; PULSE 83; TEMP 36.6; O2SAT 96
[2016-08-22] MEDS: LACTOBACILLUS ACIDOPHILUS (FLORANEX) TAB PO SCH ×3 (08:44→21:37)
[2016-08-22] MEDS: INSULIN ASPART 100 UNITS/ML 3 ML PEN SC SCH ×4 (08:44→21:00)
[2016-08-22] MEDS: CETIRIZINE HCL 10 MG TAB PO SCH (08:45)
[2016-08-22] MEDS: ASCORBIC ACID 500 MG TAB PO SCH ×2 (08:46→21:37)
[2016-08-22] MEDS: MULTIVITAMIN TAB PO SCH (08:46)
[2016-08-22] MEDS: PANTOprazole SOD 40 MG TAB PO SCH (08:46)
[2016-08-22] MEDS: SERTRALINE HCL 50 MG TAB PO SCH (08:47)
[2016-08-22] MEDS: FLUTICASONE PROPIONATE NA SPR 16 GM BTL NAE SCH (08:48)
[2016-08-22] MEDS: ENOXAPARIN 40 MG/0.4 ML SYR SQ SCH (08:48)
[2016-08-22] MEDS: CHLORHEXIDINE GLUCONATE 0.12% 480 ML MT SCH ×2 (08:49→21:36)
[2016-08-22] MEDS: BOOST VANILLA PO SCH ×6 (08:50→18:17)
[2016-08-22 08:55] VITALS: O2SAT 96
[2016-08-22 11:00] VITALS: O2SAT 95
--- NOTE | 2016-08-22 15:15 | Surgery Progress Note ---
Surgery Progress Note Date of Service August 22, 2016. Subjective Post OP Day: POD # 23 + bowel movement, + complaints, + diet, + feeling well, + flatus, No nausea, No vomiting tired today Objective Vital Signs: Date Time Temp Pulse Resp B/P Pulse Ox O2 Delivery O2 Flow Rate FiO2 08/22/16 11:00 95 08/22/16 08:55 96 Room Air 08/22/16 07:45 36.6 83 17 105/64 96 Room Air 08/22/16 07:00 Room Air 08/21/16 23:59 Room Air 08/21/16 23:25 36.6 89 18 113/75 95 Room Air 08/21/16 15:29 36.7 67 16 118/74 95 Room Air General Appearance: WD/WN, no apparent distress Neck: trachea midline Respiratory/Chest: no respiratory distress, no accessory muscle use Abdomen: non tender, non distended, soft, + pertinent finding (ostomy pink and functioning, wound vac present, liquid stool in ostomy) Incision(s): clean, dry, intact Laboratory Results: Results Past 24 Hours Test 08/21/16 17:07 08/21/16 20:45 08/22/16 08:20 08/22/16 11:50 Range/Units Bedside Glucose 100 131 86 94 70-90 mg/dl Assessment & Plan POD # 23 s/p right hemicolectomy, ileostomy formation and mucous fistula formation - vitals stable - leukocytosis 15 on 08/20 - no abdominal pain - + ostomy output - wound vac functioning Plan: Repeat cbc tomorrow, follow white count continue diet as tolerated continue IV antibiotics awaiting insurance approval for [facility] Continue PT Continue wound vac at current settings continue jess drain to bulb suction Dr. Powers has seen and examined patient, agrees with above
--- NOTE | 2016-08-22 15:24 | Progress Note ---
Internal Med Progress Note Date of Service: August 22, 2016. Provider Documentation: SUBJECTIVE: Patient is doing well. OOB to chair. Denies any complaints- no fever, chills, nausea, vomiting, abdominal pain, diarrhea OBJECTIVE: Vital Signs-as noted below Exam: General Appearance: no apparent distress Respiratory/Chest: no respiratory distress, no accessory muscle use Abdomen: normal bowel sounds, non tender, soft, + pertinent finding (+ostomy, + wound vac) MARIBEL drain + Ext: No edema Lab data as noted below. ASSESSMENT & PLAN: This is a 71 year old female with a PMH of COPD, CKD stage 3, hypothyroidism, DM2 presents with colon perforation s/p colostomy. COLON CARCINOMA S/P COLONIC PERFORATION S/P COLOSTOMY : S/P Emergent Exploratory Laparotomy, Bowel resection, Creation of colostomy, Left Salpingo-oophorectomy by Dr Powers on 07/30/16. -S/P Post operative Septic shock/Initially was intubated and was on levophed- resolved. -Continue with Primaxin- total of 14 days as per ID -Work up - Cultures negative, Pathology- 04/06 LN + for adenocarcinoma -MARIBEL drain and wound vac still in place, draining; Colostomy functioning properly -Plan is to discharge to rehab with the MARIBEL drain FUNGEMIA Positive Yeast in Peritoneal Fluid +ve Blood cultures for yeast on 08/01- was on Caspofungin for a total of 14 days -Echo = no valvular lesions noted -Repeat cultures negative ACUTE BLOOD LOSS ANEMIA S/P 2 units of PRBCs since admission -Monitor two units total of pRBCs during this admission hgb was down to around 7, transfused one unit and now up to 9.1 monitor H/H daily while inpatient QUIANA ON CKD 3- Resolved -Post operatively dehydrated -Creatinine up to 1.4, s/p fluid resuscitation and now back to baseline -Monitor DM2, well controlled -last Ha1c < 6% -insulin sliding scale and monitor HYPOTHYROIDISM -continue Synthroid DVT ppx -SQ Lovenox GI ppx -Protonix FULL CODE DISPOSITION Okay to discharge to rehab from medical point of view, awaiting bed Per Primary team Vital Signs: Date Time Temp Pulse Resp B/P Pulse Ox O2 Delivery O2 Flow Rate FiO2 08/22/16 11:00 95 08/22/16 08:55 96 Room Air 08/22/16 07:45 36.6 83 17 105/64 96 Room Air 08/22/16 07:00 Room Air 08/21/16 23:59 Room Air 08/21/16 23:25 36.6 89 18 113/75 95 Room Air 08/21/16 15:29 36.7 67 16 118/74 95 Room Air Lab Results: Results Past 24 Hours Test 08/21/16 17:07 08/21/16 20:45 08/22/16 08:20 08/22/16 11:50 Range/Units Bedside Glucose 100 131 86 94 70-90 mg/dl
[2016-08-22 15:40] VITALS: BP 119/73; PULSE 91; TEMP 36.8; O2SAT 96
[2016-08-22 23:41] VITALS: BP 108/67; PULSE 82; TEMP 36.7; O2SAT 96
[2016-08-23] MEDS: IPRATROPIUM BROMIDE/ALBUTEROL respimat INH INH SCH ×5 (00:08→23:11)
[2016-08-23] MEDS: IMIPENEM/CILASTATIN IV 500 MG in DEXTROSE 5% 100ML 100 ML IV SCH ×4 (00:09→19:36)
[2016-08-23 06:06] LABS: HEMATOCRIT 28.3 % (37-47); MEAN CELL VOLUME 85.2 fL (80-100); MEAN CORPUSCULAR HEMOGLOBIN 26.5 pg (25-34); MEAN CORPUSCULAR HGB CONC 31.1 g/dl (32-36); MEAN PLATELET VOLUME 8.9 fL (7.4-10.4); PLATELET COUNT 629 K/uL (130-400); RED BLOOD COUNT 3.32 M/uL (4.2-5.4); WHITE BLOOD COUNT 15.08 K/uL (4.8-10.8)
[2016-08-23] MEDS: UMECLIDINIUM VILANTEROL INH SCH (06:28)
[2016-08-23] MEDS: LEVOTHYROXINE 75 MCG TAB PO SCH (06:28)
--- NOTE | 2016-08-23 06:54 | Surgery Progress Note ---
Surgery Progress Note Date of Service August 23, 2016. Subjective Post OP Day: 23 + bowel movement (ileostomy functioning), + diet (tolerating regular diet), + feeling well, No complaints, No nausea, No vomiting Objective Vital Signs: Date Time Temp Pulse Resp B/P Pulse Ox O2 Delivery O2 Flow Rate FiO2 08/23/16 00:17 Room Air 08/22/16 23:41 36.7 82 16 108/67 96 Room Air 08/22/16 20:00 Room Air 08/22/16 15:40 36.8 91 18 119/73 96 Room Air 08/22/16 11:00 95 08/22/16 08:55 96 Room Air 08/22/16 07:45 36.6 83 17 105/64 96 Room Air 08/22/16 07:00 Room Air Abdomen: normal bowel sounds, non tender, non distended, soft Incision(s): findings (wound vac in place) Laboratory Results: Results Past 24 Hours Test 08/22/16 08:20 08/22/16 11:50 08/22/16 17:19 08/22/16 21:24 Range/Units Bedside Glucose 86 94 119 138 70-90 mg/dl Test 08/23/16 05:52 Range/Units White Blood Count 15.08 4.8-10.8 K/uL Red Blood Count 3.32 4.2-5.4 M/uL Hemoglobin 8.8 12.0-16.0 g/dL Hematocrit 28.3 37-47 % Mean Corpuscular Volume 85.2 80-100 fL Mean Corpuscular Hemoglobin 26.5 25-34 pg Mean Corpuscular Hemoglobin Concent 31.1 32-36 g/dl RDW Standard Deviation 50.4 36.4-46.3 fL RDW Coefficient of Variation 16.1 11.5-14.5 % Platelet Count 629 130-400 K/uL Mean Platelet Volume 8.9 7.4-10.4 fL Assessment & Plan S/P right colectomy with ileostomy formation Pathology showed carcinoma, margins clear, 1/12 lymph nodes positive, shared with patient Stable hemodynamically Ostomy output good Tolerating soft diet Continue Boost Continue wound vac No evidence of peritonitis For D/C to rehab facility when available. S/P right colectomy with ileostomy formation Pathology showed carcinoma, margins clear, 1/12 lymph nodes positive, shared with patient Stable hemodynamically Ostomy output good Tolerating soft diet Continue Boost Continue wound vac No evidence of peritonitis Continue IV antibiotics Continue PT Consider D/C to facility for early next week
[2016-08-23] MEDS: INSULIN ASPART 100 UNITS/ML 3 ML PEN SC SCH ×4 (08:00→20:51)
[2016-08-23 08:05] VITALS: BP 161/67; PULSE 85; TEMP 36.7; O2SAT 94
[2016-08-23 08:51] VITALS: O2SAT 94
[2016-08-23] MEDS: LACTOBACILLUS ACIDOPHILUS (FLORANEX) TAB PO SCH ×3 (08:56→20:54)
[2016-08-23] MEDS: SERTRALINE HCL 50 MG TAB PO SCH (08:56)
[2016-08-23] MEDS: MULTIVITAMIN TAB PO SCH (08:57)
[2016-08-23] MEDS: CALCITRIOL 0.25 MCG CAP PO SCH (08:57)
[2016-08-23] MEDS: PANTOprazole SOD 40 MG TAB PO SCH (08:57)
[2016-08-23] MEDS: ASCORBIC ACID 500 MG TAB PO SCH ×2 (08:58→20:54)
[2016-08-23] MEDS: ENOXAPARIN 40 MG/0.4 ML SYR SQ SCH (08:58)
[2016-08-23] MEDS: CETIRIZINE HCL 10 MG TAB PO SCH (08:58)
[2016-08-23] MEDS: FLUTICASONE PROPIONATE NA SPR 16 GM BTL NAE SCH (08:59)
[2016-08-23] MEDS: CHLORHEXIDINE GLUCONATE 0.12% 480 ML MT SCH ×2 (08:59→20:52)
[2016-08-23] MEDS: BOOST VANILLA PO SCH ×6 (09:02→18:02)
[2016-08-23 09:54] VITALS: BP 123/69; PULSE 98; O2SAT 93
[2016-08-23 16:06] VITALS: BP 110/68; PULSE 86; TEMP 36.9; O2SAT 94
--- NOTE | 2016-08-23 16:18 | Progress Note ---
Internal Med Progress Note Date of Service: August 23, 2016. Provider Documentation: SUBJECTIVE: Patient is doing well. OOB to chair. Denies any complaints- no fever, chills, nausea, vomiting, abdominal pain, diarrhea OBJECTIVE: Vital Signs-as noted below Exam: General Appearance: no apparent distress Respiratory/Chest: no respiratory distress, no accessory muscle use Abdomen: normal bowel sounds, non tender, soft, + pertinent finding (+ostomy, + wound vac) MARIBEL drain + Ext: No edema Lab data as noted below. ASSESSMENT & PLAN: This is a 71 year old female with a PMH of COPD, CKD stage 3, hypothyroidism, DM2 presents with colon perforation s/p colostomy. COLON CARCINOMA S/P COLONIC PERFORATION S/P COLOSTOMY : S/P Emergent Exploratory Laparotomy, Bowel resection, Creation of colostomy, Left Salpingo-oophorectomy by Dr Powers on 07/30/16. -S/P Post operative Septic shock/Initially was intubated and was on levophed- resolved. -Continue with Primaxin- total of 14 days as per ID -Work up - Cultures negative, Pathology- 04/06 LN + for adenocarcinoma -MARIBEL drain and wound vac still in place, draining; Colostomy functioning properly -Plan is to discharge to rehab with the MARIBEL drain FUNGEMIA Positive Yeast in Peritoneal Fluid +ve Blood cultures for yeast on 08/01- was on Caspofungin for a total of 14 days -Echo = no valvular lesions noted -Repeat cultures negative ACUTE BLOOD LOSS ANEMIA S/P 2 units of PRBCs since admission -Monitor two units total of pRBCs during this admission hgb was down to around 7, transfused one unit and now up to 9.1 monitor H/H daily while inpatient QUIANA ON CKD 3- Resolved -Post operatively dehydrated -Creatinine up to 1.4, s/p fluid resuscitation and now back to baseline -Monitor DM2, well controlled -last Ha1c < 6% -insulin sliding scale and monitor HYPOTHYROIDISM -continue Synthroid DVT ppx -SQ Lovenox GI ppx -Protonix FULL CODE DISPOSITION Okay to discharge to rehab from medical point of view, awaiting bed Per Primary team Vital Signs: Date Time Temp Pulse Resp B/P Pulse Ox O2 Delivery O2 Flow Rate FiO2 08/23/16 16:06 36.9 86 17 110/68 94 Room Air 08/23/16 09:54 98 93 08/23/16 08:51 94 Room Air 08/23/16 08:32 Room Air 08/23/16 08:05 36.7 85 22 161/67 94 Room Air 08/23/16 00:17 Room Air 08/22/16 23:41 36.7 82 16 108/67 96 Room Air 08/22/16 20:00 Room Air Lab Results: Results Past 24 Hours Test 08/22/16 17:19 08/22/16 21:24 08/23/16 05:52 08/23/16 08:24 Range/Units Bedside Glucose 119 138 93 70-90 mg/dl White Blood Count 15.08 4.8-10.8 K/uL Red Blood Count 3.32 4.2-5.4 M/uL Hemoglobin 8.8 12.0-16.0 g/dL Hematocrit 28.3 37-47 % Mean Corpuscular Volume 85.2 80-100 fL Mean Corpuscular Hemoglobin 26.5 25-34 pg Mean Corpuscular Hemoglobin Concent 31.1 32-36 g/dl RDW Standard Deviation 50.4 36.4-46.3 fL RDW Coefficient of Variation 16.1 11.5-14.5 % Platelet Count 629 130-400 K/uL Mean Platelet Volume 8.9 7.4-10.4 fL Test 08/23/16 12:12 Range/Units Bedside Glucose 113 70-90 mg/dl
[2016-08-23 23:40] VITALS: BP 159/92; PULSE 88; TEMP 36.8; O2SAT 94
[2016-08-24] MEDS: IMIPENEM/CILASTATIN IV 500 MG in DEXTROSE 5% 100ML 100 ML IV SCH ×3 (00:44→12:40)
[2016-08-24] MEDS: IPRATROPIUM BROMIDE/ALBUTEROL respimat INH INH SCH ×3 (07:06→18:02)
[2016-08-24] MEDS: LEVOTHYROXINE 75 MCG TAB PO SCH (07:06)
[2016-08-24] MEDS: UMECLIDINIUM VILANTEROL INH SCH (07:07)
[2016-08-24 07:20] VITALS: BP 113/68; PULSE 74; TEMP 36.6; O2SAT 97
[2016-08-24] MEDS: FLUTICASONE PROPIONATE NA SPR 16 GM BTL NAE SCH (09:00)
[2016-08-24] MEDS: CHLORHEXIDINE GLUCONATE 0.12% 480 ML MT SCH ×2 (09:00→22:01)
[2016-08-24] MEDS: SERTRALINE HCL 50 MG TAB PO SCH (09:01)
[2016-08-24] MEDS: LACTOBACILLUS ACIDOPHILUS (FLORANEX) TAB PO SCH ×3 (09:01→21:58)
[2016-08-24] MEDS: CETIRIZINE HCL 10 MG TAB PO SCH (09:02)
[2016-08-24] MEDS: ASCORBIC ACID 500 MG TAB PO SCH ×2 (09:02→21:58)
[2016-08-24] MEDS: PANTOprazole SOD 40 MG TAB PO SCH (09:02)
[2016-08-24] MEDS: ENOXAPARIN 40 MG/0.4 ML SYR SQ SCH (09:02)
[2016-08-24] MEDS: MULTIVITAMIN TAB PO SCH (09:02)
[2016-08-24] MEDS: BOOST VANILLA PO SCH ×6 (09:13→18:02)
[2016-08-24] MEDS: INSULIN ASPART 100 UNITS/ML 3 ML PEN SC SCH ×4 (09:13→21:57)
[2016-08-24 14:57] VITALS: BP 117/74; PULSE 87; TEMP 36.6; O2SAT 95
--- NOTE | 2016-08-24 15:14 | Progress Note ---
Internal Med Progress Note Date of Service: Aug 24, 2016. Provider Documentation: SUBJECTIVE: Patient is doing well. OOB to chair. Denies any complaints- no fever, chills, nausea, vomiting, abdominal pain, diarrhea OBJECTIVE: Vital Signs-as noted below Exam: General Appearance: no apparent distress Respiratory/Chest: no respiratory distress, no accessory muscle use Abdomen: normal bowel sounds, non tender, soft, + pertinent finding (+ostomy, + wound vac) MARIBEL drain + Ext: No edema Lab data as noted below. ASSESSMENT & PLAN: This is a 71 year old female with a PMH of COPD, CKD stage 3, hypothyroidism, DM2 presents with colon perforation s/p colostomy. COLON CARCINOMA S/P COLONIC PERFORATION S/P COLOSTOMY : S/P Emergent Exploratory Laparotomy, Bowel resection, Creation of colostomy, Left Salpingo-oophorectomy by Dr Powers on 07/30/16. -S/P Post operative Septic shock/Initially was intubated and was on levophed- resolved. -Continue with Primaxin- total of 14 days as per ID -Work up - Cultures negative, Pathology- 04/06 LN + for adenocarcinoma -MARIBEL drain and wound vac still in place, draining; Colostomy functioning properly -Plan is to discharge to rehab with the MARIBEL drain FUNGEMIA Positive Yeast in Peritoneal Fluid +ve Blood cultures for yeast on 08/01- was on Caspofungin for a total of 14 days -Echo = no valvular lesions noted -Repeat cultures negative ACUTE BLOOD LOSS ANEMIA S/P 2 units of PRBCs since admission -Monitor two units total of pRBCs during this admission hgb was down to around 7, transfused one unit and now up to 9.1 monitor H/H daily while inpatient QUIANA ON CKD 3- Resolved -Post operatively dehydrated -Creatinine up to 1.4, s/p fluid resuscitation and now back to baseline -Monitor DM2, well controlled -last Ha1c < 6% -insulin sliding scale and monitor HYPOTHYROIDISM -continue Synthroid DVT ppx -SQ Lovenox GI ppx -Protonix FULL CODE DISPOSITION Okay to discharge to rehab from medical point of view, awaiting bed Per Primary team Vital Signs: Date Time Temp Pulse Resp B/P (MAP) Pulse Ox O2 Delivery O2 Flow Rate FiO2 08/24/16 14:57 36.6 87 16 117/74 (88) 95 Room Air 08/24/16 07:50 Room Air 08/24/16 07:20 36.6 74 16 113/68 (83) 97 Room Air 08/23/16 23:40 36.8 88 16 159/92 (114) 94 Nasal Cannula 2.0 08/23/16 23:00 Room Air 08/23/16 16:06 36.9 86 17 110/68 (82) 94 Room Air 08/23/16 16:00 Room Air Lab Results: Results Past 24 Hours Test 08/23/16 17:02 08/23/16 20:45 08/24/16 08:03 08/24/16 12:02 Range/Units Bedside Glucose 107 126 100 106 70-90 mg/dl
--- NOTE | 2016-08-24 16:57 | Surgery Progress Note ---
Surgery Progress Note Date of Service Aug 24, 2016. Subjective Post OP Day: POD # 25 s/p ex lap, right hemicolectomy with ostomy formation + feeling well, + ambulating, + bowel movement, + flatus, + diet (regular type 2 diabetic diet), No complaints, No chest pain, No SOB, No nausea, No vomiting Objective Vital Signs: Date Time Temp Pulse Resp B/P (MAP) Pulse Ox O2 Delivery O2 Flow Rate FiO2 08/24/16 14:57 36.6 87 16 117/74 (88) 95 Room Air 08/24/16 07:50 Room Air 08/24/16 07:20 36.6 74 16 113/68 (83) 97 Room Air 08/23/16 23:40 36.8 88 16 159/92 (114) 94 Nasal Cannula 2.0 08/23/16 23:00 Room Air Physical Exam: JESS drainage (minimal serous drainage, left jess drain) General Appearance: WD/WN, no apparent distress Head: normocephalic, atraumatic Neck: trachea midline Respiratory/Chest: no respiratory distress, no accessory muscle use Abdomen: non tender, non distended, soft, no organomegaly, no pulsatile mass Incision(s): findings (midline wound vac present, ostomy present, functioning and pink) Laboratory Results: Results Past 24 Hours Test 08/23/16 17:02 08/23/16 20:45 08/24/16 08:03 08/24/16 12:02 Range/Units Bedside Glucose 107 126 100 106 70-90 mg/dl Assessment & Plan POD # 25 s/p ex lap, right hemicolectomy with ostomy formation and mucous fistula -vitals stable - no abdominal pain - wound vac present and functioning - tolerating type 2 diabetic diet - leukocytosis of 15 two days ago - overall feeling well and improving on daily basis - waiting for [facility] approval by insurance, peer to peer review declined, family is appealing Plan: Continue current pain management as needed Stop IV antibiotics today, Patient has received 20 days of post-op Imipenem, ID suggested total of 14 days Will repeat CBC tomorrow morning, if leukocytosis persists, may to need reconsult ID continue wound vac continue regular type 2 diabetic diet continue boost continue PT await [facility] approval, will speak with social worker clinical tomorrow
[2016-08-24 23:33] VITALS: BP 111/69; PULSE 81; TEMP 36.9; O2SAT 96
[2016-08-25] MEDS: IPRATROPIUM BROMIDE/ALBUTEROL respimat INH INH SCH ×4 (00:07→18:00)
[2016-08-25 05:47] LABS: HEMATOCRIT 29.1 % (37-47); MEAN CELL VOLUME 85.6 fL (80-100); MEAN CORPUSCULAR HEMOGLOBIN 27.1 pg (25-34); MEAN CORPUSCULAR HGB CONC 31.6 g/dl (32-36); PLATELET COUNT 692 K/uL (130-400); WHITE BLOOD COUNT 15.66 K/uL (4.8-10.8)
[2016-08-25] MEDS: UMECLIDINIUM VILANTEROL INH SCH (06:22)
[2016-08-25] MEDS: LEVOTHYROXINE 75 MCG TAB PO SCH (06:23)
[2016-08-25 08:07] VITALS: BP 102/68; PULSE 78; TEMP 36.7; O2SAT 95
[2016-08-25] MEDS: INSULIN ASPART 100 UNITS/ML 3 ML PEN SC SCH ×3 (08:45→18:01)
[2016-08-25] MEDS: BOOST VANILLA PO SCH ×6 (09:29→18:18)
[2016-08-25] MEDS: LACTOBACILLUS ACIDOPHILUS (FLORANEX) TAB PO SCH ×2 (09:31→13:51)
[2016-08-25] MEDS: MULTIVITAMIN TAB PO SCH (09:33)
[2016-08-25] MEDS: CETIRIZINE HCL 10 MG TAB PO SCH (09:33)
[2016-08-25] MEDS: ASCORBIC ACID 500 MG TAB PO SCH (09:33)
[2016-08-25] MEDS: CALCITRIOL 0.25 MCG CAP PO SCH (09:34)
[2016-08-25] MEDS: PANTOprazole SOD 40 MG TAB PO SCH (09:34)
[2016-08-25] MEDS: CHLORHEXIDINE GLUCONATE 0.12% 480 ML MT SCH (09:35)
[2016-08-25] MEDS: SERTRALINE HCL 50 MG TAB PO SCH (09:36)
[2016-08-25] MEDS: FLUTICASONE PROPIONATE NA SPR 16 GM BTL NAE SCH (09:36)
[2016-08-25] MEDS: ENOXAPARIN 40 MG/0.4 ML SYR SQ SCH (09:37)
--- NOTE | 2016-08-25 11:56 | Progress Note ---
Internal Med Progress Note Date of Service: Aug 25, 2016. Provider Documentation: SUBJECTIVE: Patient is doing well. OOB to chair. Denies any complaints- no fever, chills, nausea, vomiting, abdominal pain, diarrhea Awaiting placement OBJECTIVE: Vital Signs-as noted below Exam: General Appearance: no apparent distress Respiratory/Chest: no respiratory distress, no accessory muscle use Abdomen: normal bowel sounds, non tender, soft, + pertinent finding (+ostomy, + wound vac) MARIBEL drain + Ext: No edema Lab data as noted below. ASSESSMENT & PLAN: This is a 71 year old female with a PMH of COPD, CKD stage 3, hypothyroidism, DM2 presents with colon perforation s/p colostomy. COLON CARCINOMA S/P COLONIC PERFORATION S/P COLOSTOMY : S/P Emergent Exploratory Laparotomy, Bowel resection, Creation of colostomy, Left Salpingo-oophorectomy by Dr Powers on 07/30/16. -S/P Post operative Septic shock/Initially was intubated and was on levophed- resolved. -WBC still up at 15k, but no symptoms/signs of infection. -Discontinued Primaxin- received it for total of 20 days. Total days recommended by ID 14 days -Work up - Cultures negative, Pathology- 04/06 LN + for adenocarcinoma -MARIBEL drain and wound vac still in place, draining; Colostomy functioning properly -Plan is to discharge to rehab with the MARIBEL drain FUNGEMIA Positive Yeast in Peritoneal Fluid +ve Blood cultures for yeast on 08/01- was on Caspofungin for a total of 14 days -Echo = no valvular lesions noted -Repeat cultures negative ACUTE BLOOD LOSS ANEMIA S/P 2 units of PRBCs since admission -Monitor two units total of pRBCs during this admission hgb was down to around 7, transfused one unit and now up to 9.1 monitor H/H daily while inpatient QUIANA ON CKD 3- Resolved -Post operatively dehydrated -Creatinine up to 1.4, s/p fluid resuscitation and now back to baseline -Monitor DM2, well controlled -last Ha1c < 6% -insulin sliding scale and monitor HYPOTHYROIDISM -continue Synthroid DVT ppx -SQ Lovenox GI ppx -Protonix FULL CODE DISPOSITION Okay to discharge to rehab from medical point of view, awaiting bed Per Primary team Vital Signs: Date Time Temp Pulse Resp B/P (MAP) Pulse Ox O2 Delivery O2 Flow Rate FiO2 6/2/17 08:07 36.7 78 17 102/68 (79) 95 Room Air 08/25/16 08:05 Room Air 08/25/16 00:00 Room Air 08/24/16 23:33 36.9 81 16 111/69 (83) 96 Room Air 08/24/16 16:00 Room Air 08/24/16 14:57 36.6 87 16 117/74 (88) 95 Room Air Lab Results: Results Past 24 Hours Test 08/24/16 12:02 08/24/16 17:11 08/24/16 21:56 08/25/16 05:33 Range/Units Bedside Glucose 106 109 126 70-90 mg/dl White Blood Count 15.66 4.8-10.8 K/uL Red Blood Count 3.40 4.2-5.4 M/uL Hemoglobin 9.2 12.0-16.0 g/dL Hematocrit 29.1 37-47 % Mean Corpuscular Volume 85.6 80-100 fL Mean Corpuscular Hemoglobin 27.1 25-34 pg Mean Corpuscular Hemoglobin Concent 31.6 32-36 g/dl RDW Standard Deviation 49.6 36.4-46.3 fL RDW Coefficient of Variation 16.0 11.5-14.5 % Platelet Count 692 130-400 K/uL Mean Platelet Volume 9.0 7.4-10.4 fL Test 08/25/16 08:06 Range/Units Bedside Glucose 89 70-90 mg/dl
--- NOTE | 2016-08-25 12:20 | Surgery Progress Note ---
Surgery Progress Note Date of Service Aug 25, 2016. 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 in order to go home since I live alone" "waiting on the insurance to accept appeal to [facility] or placement to other facilities" Objective Vital Signs: Date Time Temp Pulse Resp B/P (MAP) Pulse Ox O2 Delivery O2 Flow Rate FiO2 08/25/16 08:07 36.7 78 17 102/68 (79) 95 Room Air 08/25/16 08:05 Room Air 08/25/16 00:00 Room Air 08/24/16 23:33 36.9 81 16 111/69 (83) 96 Room Air 08/24/16 16:00 Room Air 08/24/16 14:57 36.6 87 16 117/74 (88) 95 Room Air General Appearance: WD/WN, no apparent distress Head: normocephalic, atraumatic Neck: trachea midline Respiratory/Chest: no respiratory distress, no accessory muscle use Abdomen: non tender, non distended, soft, + pertinent finding (midline wound vac present, ostomy pink and functioning, liquid and soft stool present in ostomy) Laboratory Results: Results Past 24 Hours Test 08/24/16 17:11 08/24/16 21:56 08/25/16 05:33 08/25/16 08:06 Range/Units Bedside Glucose 109 126 89 70-90 mg/dl White Blood Count 15.66 4.8-10.8 K/uL Red Blood Count 3.40 4.2-5.4 M/uL Hemoglobin 9.2 12.0-16.0 g/dL Hematocrit 29.1 37-47 % Mean Corpuscular Volume 85.6 80-100 fL Mean Corpuscular Hemoglobin 27.1 25-34 pg Mean Corpuscular Hemoglobin Concent 31.6 32-36 g/dl RDW Standard Deviation 49.6 36.4-46.3 fL RDW Coefficient of Variation 16.0 11.5-14.5 % Platelet Count 692 130-400 K/uL Mean Platelet Volume 9.0 7.4-10.4 fL Assessment & Plan POD # 26 s/p ex lap, right hemicolectomy with ostomy formation and mucous fistula -vitals stable - no abdominal pain - wound vac present and functioning - tolerating type 2 diabetic diet - leukocytosis of 15 two days ago, stable today - overall feeling well and improving on daily basis - waiting for [facility] approval by insurance, peer to peer review declined, family is appealing Plan: Continue current pain management as needed continue wound vac continue regular type 2 diabetic diet continue boost continue PT await [facility] approval of appeal Dr. Contreras has seen and examined patient, agrees with above
[2016-08-25 14:25] VITALS: BP 102/68; PULSE 78; TEMP 36.7; O2SAT 95
[2016-08-25] MEDS ORDERED: OXYC-57 PO (15:29)
--- NOTE | 2016-08-25 15:36 | Discharge Instructions ---
Discharge Instructions Date of Service Aug 25, 2016. Admission Reason for Admission: Perforation Of Colon Discharge Discharge Diagnosis / Problem: Colonic perforation, colon cancer Discharge Goals Goal(s): Decrease discomfort, Improve function, Increase independence, Improve nutritional status Activity Recommendations Activity Limitations: as noted below No strenuous activity or any lifting over 10 pounds until cleared by your surgeon Walking and light activity is encouraged Continue physical therapy as directed No submerging underwater as you have wound vac and ostomy No driving while taking narcotic pain medication . Instructions / Follow-Up Instructions / Follow-Up You may shower and let water hit your back, sponge bath abdomen. Try to keep wound vac and ostomy dry. You should follow-up with the wound care center , they have set that up for you Follow-up with Dr. Powers in one week, please call office at [phone] to make an appointment. Current Hospital Diet Patient's current hospital diet: Diabetes Type 2 Diet, Low Fiber Diet Discharge Diet Recommended Diet: Diabetes Type 2 Diet Procedures Procedures Performed: Exploratory Laparotomy, Bowel Resection, Creation of Ileostomy, Left Salpingoopherectomy Pending Studies Studies pending at discharge: no Laboratory Results Hemoglobin A1c Test 07/31/16 06:21 Range/Units Estimated Average Glucose 111 mg/dl Hemoglobin A1c 5.5 4.5-5.6 % Medical Emergencies . Who to Call and When: Medical Emergencies: If at any time you feel your situation is an emergency, please call 911 immediately. . Non-Emergent Contact Non-Emergency issues call your: Primary Care Provider, Surgeon Call Non-Emergent contact if: you have a fever, temperature is above 101.5, your pain is not controlled, your pain is worsening, wound has increased drainage, wound has increased redness, wound has increased pain . "Provider Documentation" section prepared by Yana Lopez. . VTE Core Measure Inpt VTE Proph given/why not?: Enoxaparin (Lovenox)SQ, SCD's [place] Drug Monitoring Program Search Results: patient reviewed within database, no issues identified
[2016-08-25 16:15] VITALS: BP 125/73; PULSE 92; TEMP 36.8; O2SAT 96
--- NOTE | 2016-08-31 14:12 | Discharge Summary ---
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 Wound care/ostomy Infectious Disease child and family services worker Procedures: Exploratory laparotomy with right hemicolectomy, ileostomy formation, mucous fistula, and left salpingoophorectomy Pending Studies / Follow-Up None Medication Reconciliation New Medications: Oxycodone/Acetaminophen 5MG/325MG (Percocet 5MG/325MG) Tab 1 TABLET PO Q4H PRN for Pain, #30 TAB Continued Medications: Acetaminophen (Tylenol Arthritis Ext Rel) 650 Mg Cplt 650 MG PO DAILY, CAP Acetaminophen (Tylenol) 325 Mg Tab 650 MG PO Q4H PRN for Pain or Fever, TAB Acetazolamide (Acetazolamide) 250 Mg Tab 250 MG PO TID Albuterol Sulfate (Proair Respiclick) 108 Mcg/Act Aer 2 PUFF INH QID Alendronate Sodium (Fosamax) 70 Mg Tab 70 MG PO WK, TAB Aluminum Hydroxide-Mag Trisil (Gaviscon) 1 Chw Chw 2 TABS PO QID PRN for GI Upset Ascorbic Acid (Vitamin C) 500 Mg Tab 500 MG PO BID Bisacodyl (Bisacodyl Laxative) 10 Mg Sup 10 MG RE DAILY PRN for Constipation IF NO BM IN 3 DAYS. Calcitriol (Rocaltrol Cap) 0.25 Mcg Cap 0.25 MCG PO MWF, CAP Calcium Citrate-Vitamin D (Citracal + D3 Maximum) 1 Tab Tab 1 TAB PO DAILY Cetirizine Hcl (Zyrtec) 5 Mg Tab 5 MG PO DAILY, TAB Docusate Sodium (Colace Clear) 50 Mg Cap 1 CAP PO DAILY Fluticasone Propionate (Nasal) (Flonase Allergy Relief) 50 Mcg/Act Spr 2 SPRAYS MARI DAILY Lactobacillus Acidophilus (Lactinex) Tab 4 TABS TID, TAB Levothyroxine Sodium (Levothyroxine Sodium) 75 Mcg Tab 1 TAB PO DAILY for 90 Days, #90 TAB 3 Refills Lisinopril (Zestril) 2.5 Mg Tab 2.5 MG PO DAILY Magnesium Hydroxide (Milk of Magnesia) 30 Ml Susp 30 ML PO DAILY PRN for Constipation IN NO BM IN 2 DAYS. Metformin Hcl (Glucophage) 500 Mg Tab 500 MG PO BID, TAB Multivitamin (Multivitamin) Tab 1 TAB PO QAM, TAB Pravastatin (Pravachol ) 20 Mg Tab 20 MG PO DAILY, TAB Sertraline (Zoloft) 50 Mg Tab 50 MG PO DAILY, TAB Sodium Phosphate/Biphosphate (Fleet Enema) Preeti 1 EA MA DAILY PRN for Constipation, BTL IN NO BM IN 4 DAYS. Umeclidinium-Vilanterol (Anoro Ellipta 62.5-25 Mcg/INH) 1 Aer Aer 1 PUFFS INH DAILYBB Discontinued Medications: Amoxicillin (Amoxil) 500 Mg Cap 500 MG PO TID, #21 CAP LAST DOSE 08/04/16 AT 1500. Ertapenem Sodium (Invanz) 1 Gm Inj 1 GM IV DAILY AT 1400, VIAL GIVE OVER 30 MINUTES. STARTED 07/22/16 FOR 10 DAYS. Admission HPI Per the Admitting provider: 71 y/o female presented to ER on 07/30/2016 with abdominal pain that began the day prior. It is located throughout her abdomen with no site predominating. She has never had pain similar to this in the past. Upon presentation to the ER she was found to have a systolic bp of 70-90 that initially responded to fluids but then dropped again. She has not had tachycardia. She is not taking a Beta idalia. She denies fever and chills. She had nausea but did not vomit. she does not think she had a fever. She was admitted her the end of June after a fall. She was found to have a UTI with E.coli and Enterococcus and is presently undergoing Invanz therapy via PICC line. Her bowel habits are irregular. She has a recent history of constipation while hospitalized treated with laxatives but then had diarrhea. She has not had a bm for the last 2 days. She has no history of diverticulitis. She had a colonoscopy many years ago but is unsure as to exactly when it was. She was told that she had polyps. Ct scan showed a dilated right colon, especially the cecum. There is free air present. Admission Exam Per the Admitting provider: General Appearance: + pertinent finding (Elderly female lying quietly appears in no acute distress) Head: normocephalic Respiratory/Chest: + rhonchi (scattered), + wheezing (scattered end expiratory) Cardiovascular: regular rate, rhythm Abdomen/GI: + tenderness (to minimal palpation throughout), + abnormal bowel sounds (absent), + distended Back: no CVA tenderness Extremities/Musculoskelatal: no pedal edema Skin: normal color Hospital Course (1) Perforation of colon Patient was taken to the operating room immediately for exploratory laparotomy, right hemicolectomy, ileostomy formation, mucous fistula and left salpingoophorectomy. Patient tolerated procedure well without any complications however she was not able to be weaned off the ventilator therefore she went to the ICU postoperatively still intubated. She had a Right internal jugular triple lumen central line placed as well as a right radial arterial line. She received 1 unit of PRBCs intraoperatively. An intraoperative gram stain showed gram positive bacilli and moderate yeast. ICU management included mechanical ventilation monitoring, Levophed infusion given continued hypotension, NGT to low intermittent suction, Protonix IV, SCDs, Sodium Bicarbonate IV fluids, IV antibiotics including Ampicillin and Ertapenem. Diflucan was started given gram stain for yeast. And continued monitoring. Her outcome was guarded. POD # 1 patient was still intubated and Levophed infusion continued. Diflucan was discontinued and Caspofungin was started. Antibiotics were continued. Lactic acid improved but still high. She passed a spontaneous breathing trial later in the day and was extubated successfully. POD # 2 she did no require any further vasopressors, BP was stable and sustained MAP > 65. She was started on clear liquids (sips) and Tube feeding. Her hemoglobin did decrease to 6.9 from 9.2, she was asymptomatic and 1 units of PRBCs were on hold. She continued to have a slight temperature despite IV antibiotics therefore central line was cultured and discontinued and Antibiotics were switched to Imipenem/Cilastin. POD # 3 patient had large amounts of emesis 1 liter and 800 cc from NGT. Tube feedings and clears were held and NGT was started on low intermittent suction. Hemoglobin stable at 8.1. She was transfered to medical/surg floor as she was stable and did not require ICU care. POD # 4 Pathology showed adenocarcinoma with negative margins and 1/12 lymph nodes positive. NGT was continued on LIS. POD # 5 patient complained of abdominal pain and a CT scan was obtained which showed small nondrainable fluid collctions, some small bowel distention concerning for possible Ileus vs early partial small bowel obstruction. NGT was continued and allowed to have ice chips. POD # 6 patient's WBC started to increase to 13,000. NGT was discontinued and started on clears. Ward catheter was also discontinued. POD # 7 wbc continued to increase to 17,000, cultures were repeated and IV vancomycin was added. POD # 8 diet was advanced to full liquids and WBC continued to increase to 18,000, there was purulent drainage from midline wound and a 11 cm tunneling of the wound in superior direction. Wound vac was continued. POD # 9 WBC slightly decreased to 17,000. POD # [address] scan of abdomen and pelvis was obtained which showed new collection of air in the rectus muscle otherwise stable. WBC increased to 23K. OVer the course of the next few days CBC decreased and then increased again. High was at 17.58. There was no evidence of infection and iV antibiotics were continued. Finally on POD # 26 patient was discharged to rehabilitation at [facility]. (2) Peritonitis please see above (3) Fungemia received 14 days of Caspofungin repeat BC on 5/14/17 was negative (4) Colon cancer (5) Polymicrobial sepsis She received IV caspofungin 14 days and IV Imipenem for 20 days Repeat BC on 5/14/17 were negative refer to above for hospital course Total Time Total Time Spent (min): 30 Total Time Includes: examination of the patient, discharge planning, medication reconciliation Discharge Instructions as given to patient Copies To Primary Care Provider: Ananya Hong Beaver. 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
[2016-09-04] MEDS ORDERED: ENOX40IN SQ (10:46)
[2016-09-07] MEDS ORDERED: AMOX500T PO (09:32)
[2016-10-23] MEDS ORDERED: SLWMEC PO (11:41)
[2016-10-23] MEDS ORDERED: MCRK20 PO (11:41)
[2016-10-23] MEDS ORDERED: MCRB100 PO (11:41)
[2016-10-31] MEDS ORDERED: CYAN10005 PO (07:59)
[2016-10-31] MEDS ORDERED: FERR1TAB13 PO (07:59)
[2016-11-13] MEDS ORDERED: SENN8.6T7 PO (17:27)
[2016-12-22] MEDS ORDERED: UMEC1AER INH (13:03)
[2016-12-22] MEDS ORDERED: SENN-61 PO (13:03)
[2016-12-22] MEDS ORDERED: MULT-916 PO (13:03)
== END 2016-08-25 20:30 | DRG 853 ==
LOC: ENRESERVDT → ENRESERVTM → EDBD 03:24 → C.EDB 03:25 → UNDOADMIN 13:15 → C.MSICU 13:15 → EDBEDREQ 08-02 11:13 → C.3E 08-02 14:09 → C.MSICU 08-02 14:09
PROVIDERS: ADMIT Surgery; ATTEND Surgery
PROC: 5A1935Z Respiratory Ventilation, Less than 24 Consecutive Hours (ICD-10-PCS; 2016-07-30)
PROC: 0DTK0ZZ Resection of Ascending Colon, Open Approach (ICD-10-PCS; principal; 2016-07-30 07:56)
PROC: 0D1K0Z4 Bypass Ascending Colon to Cutaneous, Open Approach (ICD-10-PCS; principal; 2016-07-30 07:56)
PROC: 0UT60ZZ Resection of Left Fallopian Tube, Open Approach (ICD-10-PCS; 2016-07-30 07:56)
PROC: 0UT10ZZ Resection of Left Ovary, Open Approach (ICD-10-PCS; 2016-07-30 07:56)
DX: A41.9 Sepsis, unspecified organism (principal); R65.21 Severe sepsis with septic shock; K63.1 Perforation of intestine (nontraumatic); N17.9 Acute kidney failure, unspecified; B49 Unspecified mycosis; D62 Acute posthemorrhagic anemia; N39.0 Urinary tract infection, site not specified; C18.4 Malignant neoplasm of transverse colon; I12.9 Hypertensive chronic kidney disease with stage 1 through stage 4 chronic kidney disease, or unspecified chronic kidney disease; E11.22 Type 2 diabetes mellitus with diabetic chronic kidney disease; N18.3 Chronic kidney disease, stage 3 (moderate); E03.9 Hypothyroidism, unspecified; J44.9 Chronic obstructive pulmonary disease, unspecified; Z99.81 Dependence on supplemental oxygen; Z79.84 Long term (current) use of oral hypoglycemic drugs; Z79.899 Other long term (current) drug therapy; F17.200 Nicotine dependence, unspecified, uncomplicated

== ENCOUNTER → 2016-10-11 | Outpatient (CLI) | payer BC ==
[~2016-10-11] MED LIST changes: +ACET-1311 PO; -ACET1TAB84 PO; -AMX500 PO; +ASCA500 PO; +BISA1SUP4 RE; +CYAN10005 PO; +CZR25 PO; +ENOX40IN SQ; -ERTA1INJ IV; +FERR1TAB13 PO; -LCTX PO; +LEVO88TA3 PO; +MCRB100 PO; +MCRK20 PO; +MULT-506 PO; +MULT-916 PO; +ONDA4TAB46 PO; +SENN-61 PO; +SENN8.6T7 PO; +SLWMEC PO
[2016-10-11 14:53] LABS: BLOOD UREA NITROGEN 24 mg/dl (7-18); BUN/CREATININE RATIO 23.6 (10-20); CALCIUM 9.6 mg/dl (8.5-10.1); CARBON DIOXIDE 19 mmol/L (21-32); CHLORIDE 106 mmol/L (98-107); GLUCOSE 76 mg/dl (70-99); POTASSIUM 3.7 mmol/L (3.5-5.1); SODIUM 135 mmol/L (136-145)
--- NOTE | 2016-11-02 14:13 | CODING QUERY NO DIAGNOSIS ---
Valid Physician Order Needed 46 A valid physician order must be submitted in order to properly bill for the service(s) provided, including date of service(s), valid diagnosis, and physician signature. If these tests are done on a recurring basis the original physican order must be submitted in order to code and bill for the service(s) provided. Please fax us the original, signed physician order so that we may expedite billing to [phone] DOS 10/11/16 * PARTIAL RENAL PROFILE Thank you Brionna [facility] Information Management
== END | disposition home or self-care (01) ==
LOC: C.LABSPEC 14:21
PROVIDERS: ATTEND Internal Medicine
DX: Z01.89 Encounter for other specified special examinations (principal)

== ENCOUNTER 2016-10-19 15:17 | Inpatient (IN) | payer BC, OTHER ==
[~2016-10-19] VITALS: Ht 157.5 cm; Wt 69.4 kg
[~2016-10-19 15:17] MED LIST changes: -CYAN10005 PO; -CZR25 PO; -FERR1TAB13 PO; -GLC/500 PO; -LEVO88TA3 PO; -LISI-789 PO; -MCRB100 PO; -MCRK20 PO; -MULT-916 PO; -ONDA4TAB46 PO; -SENN-61 PO; -SENN8.6T7 PO; -SLWMEC PO; -UMEC1AER INH
[2016-10-19] MEDS ORDERED: SODIUM CHLORIDE 0.9% 1000ML 1,000 ML IV ONE (15:35)
--- NOTE | 2016-10-19 15:43 | EMERGENCY ROOM VISIT NOTE ---
History Report prepared by Katharine: Martine Tolliver Under the Supervision of: Dr. Ivan Cortes M.D. First contact with patient: 15:27 Chief Complaint: HYPOTENSION Stated Complaint: LOW BLOOD PRESSURE, NOT URINATING History of Present Illness The patient is a 71 year old female who presents to the Emergency Room with complaints of persistent urinary issues starting yesterday. As per sister, the patient has not urinated in about a day. She also complains of some dizziness with standing up, spotting in her vision with standing up, some shortness of breath, and nausea. She denies vomiting. She denies fevers, chest pain, abdominal pain, or any other complaints. Her systolic blood pressure was down to 85 today. Her normal systolic blood pressure is around 108. She has a history of colon cancer and related surgery occurring on July [address] Powers. She has a wound vac and an ostomy bag. Recently, only a small amount of discharge is being produced through the ostomy. The patient was referred to the Emergency Room today by her home health nurse. Source of History: patient, family Onset: yesterday Position: other (global) Quality: other (urinary issues) Timing: other (persistent) Associated Symptoms: + SOB, + nausea, No fevers, No chest pain, No vomiting Review of Systems See HPI for pertinent positives & negatives. A total of 10 systems reviewed and were otherwise negative. Past Medical & Surgical Medical Problems: (1) Acute blood loss anemia (2) CKD (chronic kidney disease), stage III (3) Colon cancer (4) COPD, moderate (5) Depression (6) DM type 2 (diabetes mellitus, type 2) (7) Fungemia (8) Hypotension (9) Hypothyroidism (10) Perforation of colon (11) Peritonitis (12) Polymicrobial sepsis Surgical Problems: (1) S/P oophorectomy Family History FH: colon cancer SISTER Social History Smoking Status: Former Smoker Alcohol Use: none Drug Use: none Marital Status: single Occupation Status: retired Current/Historical Medications Scheduled Acetazolamide (Acetazolamide), 250 MG PO TID Albuterol Sulfate (Proair Respiclick), 2 PUFF INH QID Alendronate Sodium (Fosamax), 70 MG PO WK Ascorbic Acid (Vitamin C), 500 MG PO HS Calcitriol (Rocaltrol Cap), 0.25 MCG PO MWF Calcium Citrate-Vitamin D (Citracal + D3 Maximum), 1 TAB PO DAILY Cetirizine Hcl (Zyrtec), 5 MG PO DAILY Fluticasone Propionate (Nasal) (Flonase Allergy Relief), 2 SPRAYS MARI DAILY Levothyroxine Sodium (Levothyroxine Sodium), 88 MCG PO DAILY Lisinopril (Zestril), 2.5 MG PO DAILY Losartan Potassium (Losartan Potassium), 25 MG PO DAILY Metformin Hcl (Glucophage), 500 MG PO BID Multivitamin (Multivitamin), 1 TAB PO QAM Pravastatin (Pravachol ), 20 MG PO DAILY Sertraline (Zoloft), 50 MG PO HS Umeclidinium-Vilanterol (Anoro Ellipta 62.5-25 Mcg/INH), 1 PUFF INH DAILY Scheduled PRN Aluminum Hydroxide-Mag Trisil (Gaviscon), 2 TABS PO QID PRN for GI Upset Allergies Coded Allergies: No Known Allergies (Unverified , 10/19/16) Physical Exam Vital Signs Date Time Temp Pulse Resp B/P (MAP) Pulse Ox O2 Delivery O2 Flow Rate FiO2 10/19/16 19:40 73 19 95 10/19/16 19:35 71 25 97 10/19/16 19:31 78/45 10/19/16 19:30 72 24 96 10/19/16 19:25 72 19 98 10/19/16 19:20 71 26 100 10/19/16 19:16 85/45 10/19/16 19:15 71 27 97 10/19/16 19:13 74 20 100/60 96 Room Air 10/19/16 18:31 87/46 10/19/16 18:30 77 25 95 10/19/16 18:16 90/55 10/19/16 18:15 74 19 96 10/19/16 18:01 85/51 10/19/16 18:00 72 26 10/19/16 17:46 83/48 10/19/16 17:45 74 18 10/19/16 17:31 91/53 10/19/16 17:30 72 20 96 10/19/16 17:27 93/46 10/19/16 17:15 69 17 97 10/19/16 17:01 77/40 10/19/16 17:00 71 15 97 10/19/16 16:51 70 16 82/50 96 Room Air 10/19/16 16:37 71 20 70/40 100 Room Air 10/19/16 16:08 71 10/19/16 16:05 69 16 73/38 95 Room Air 10/19/16 15:35 71 16 61/34 100 Room Air 10/19/16 15:35 100 Room Air 10/19/16 15:21 36.3 106 20 66/39 94 Room Air Physical Exam GENERAL: Patient is a healthy-appearing well-nourished HEAD: Normocephalic atraumatic EYES: Ocular movements intact pupils equal and react to light OROPHARYNX mucous membranes are moist no exudates present no erythema or edema present NECK: Supple no nuchal rigidity CHEST: Good equal expansion LUNGS: Clear and equal to auscultation CARDIAC: Normal S1 and S2 ABDOMEN: Soft nontender no guarding. Wound vac is in place. Ostomy in place that is draining. BACK: No CVA tenderness EXTREMITIES: No pain upon palpation normal muscle strength in all groups no clubbing cyanosis or edema NEURO: Patient is following commands and answering questions appropriately. Alert and oriented x3 Cranial Nerves 2-12 grossly intact Medical Decision & Procedures ER Provider Diagnostic Interpretation: X-ray results as stated below per interpretation by me and the radiologist: CHEST ONE VIEW PORTABLE CLINICAL HISTORY: Hypotension. COMPARISON STUDY: Chest radiograph August 06, 2016. FINDINGS: Lung volumes are normal. No pneumothorax or pleural effusion is present. Cardiomediastinal silhouette is normal. There is no evidence of pulmonary edema. Appearance of the chest is unchanged. IMPRESSION: No acute cardiopulmonary findings. Electronically signed by: Nicko Bar M.D. 10/19/2016 4:35 PM Dictated Date/Time: 10/19/2016 4:35 PM CHEST ONE VIEW PORTABLE HISTORY: 71 years-old Female status post line placement COMPARISON: Portable chest radiograph 10/19/2016 TECHNIQUE: Portable upright AP view of the chest FINDINGS: There has been interval placement of a left internal jugular central venous catheter with distal tip terminating to the right of midline in the expected region of the left brachiocephalic SVC confluence. No postprocedural pneumothorax is identified. Cardiac silhouette is within normal limits. There is atherosclerosis of the aorta. Lung ruffin are clear without overt pulmonary edema, focal airspace consolidations or pleural effusion. The bones appear grossly intact with moderate degenerative changes about the shoulders. The upper abdominal structures are within normal limits. IMPRESSION: 1. Status post placement of a left internal jugular central venous catheter with distal tip terminating to the right of midline, within the expected region of the left brachiocephalic SVC confluence. No postprocedural pneumothorax. 2. No acute cardiopulmonary process. The above report was generated using voice recognition software. It may contain grammatical, syntax or spelling errors. Electronically signed by: Valeriano Mai M.D. 10/19/2016 7:09 PM Dictated Date/Time: 10/19/2016 7:07 PM Laboratory Results 10/19/16 18:30 Red Blood Count 3.70, Mean Corpuscular Volume 85.4, Mean Corpuscular Hemoglobin 26.8, Mean Corpuscular Hemoglobin Concent 31.3, Mean Platelet Volume 9.5, Neutrophils (%) (Auto) 68.4, Lymphocytes (%) (Auto) 21.7, Monocytes (%) (Auto) 7.1, Eosinophils (%) (Auto) 1.7, Basophils (%) (Auto) 0.4, Neutrophils # (Auto) 8.93, Lymphocytes # (Auto) 2.84, Monocytes # (Auto) 0.93, Eosinophils # (Auto) 0.22, Basophils # (Auto) 0.05 10/19/16 18:30 Test 10/19/16 16:13 10/19/16 18:30 10/19/16 19:00 Bedside Lactic Acid Venous 1.97 mmol/L (0.90-1.70) White Blood Count 13.06 K/uL (4.8-10.8) Red Blood Count 3.70 M/uL (4.2-5.4) Hemoglobin 9.9 g/dL (12.0-16.0) Hematocrit 31.6 % (37-47) Mean Corpuscular Volume 85.4 fL (80-100) Mean Corpuscular Hemoglobin 26.8 pg (25-34) Mean Corpuscular Hemoglobin Concent 31.3 g/dl (32-36) Platelet Count 301 K/uL (130-400) Mean Platelet Volume 9.5 fL (7.4-10.4) Neutrophils (%) (Auto) 68.4 % Lymphocytes (%) (Auto) 21.7 % Monocytes (%) (Auto) 7.1 % Eosinophils (%) (Auto) 1.7 % Basophils (%) (Auto) 0.4 % Neutrophils # (Auto) 8.93 K/uL (1.4-6.5) Lymphocytes # (Auto) 2.84 K/uL (1.2-3.4) Monocytes # (Auto) 0.93 K/uL (0.11-0.59) Eosinophils # (Auto) 0.22 K/uL (0-0.5) Basophils # (Auto) 0.05 K/uL (0-0.2) RDW Standard Deviation 48.3 fL (36.4-46.3) RDW Coefficient of Variation 15.3 % (11.5-14.5) Immature Granulocyte % (Auto) 0.7 % Immature Granulocyte # (Auto) 0.09 K/uL (0.00-0.02) Prothrombin Time 10.7 SECONDS (9.0-12.0) Prothromb Time International Ratio 1.0 (0.9-1.1) Activated Partial Thromboplast Time 26.0 SECONDS (21.0-31.0) Partial Thromboplastin Ratio 1.0 Anion Gap 13.0 mmol/L (3-11) Est Creatinine Clear Calc Drug Dose 16.7 ml/min Estimated GFR () 18.2 Estimated GFR (Non- 15.7 BUN/Creatinine Ratio 13.8 (10-20) Calcium Level 8.2 mg/dl (8.5-10.1) Total Bilirubin 0.3 mg/dl (0.2-1) Aspartate Amino Transf (AST/SGOT) 13 U/L (15-37) Alanine Aminotransferase (ALT/SGPT) 16 U/L (12-78) Alkaline Phosphatase 40 U/L (45-117) Total Creatine Kinase 39 U/L (26-192) Creatine Kinase MB 0.7 ng/ml (0.5-3.6) Creatine Kinase MB Ratio 1.8 (0-3.0) Troponin I < 0.015 ng/ml (0-0.045) Total Protein 5.9 gm/dl (6.4-8.2) Albumin 2.5 gm/dl (3.4-5.0) Globulin 3.4 gm/dl (2.5-4.0) Albumin/Globulin Ratio 0.7 (0.9-2) Urine Color YELLOW Urine Appearance CLOUDY (CLEAR) Urine pH 5.0 (4.5-7.5) Urine Specific [place] 1.015 (1.000-1.030) Urine Protein NEG (NEG) Urine Glucose (UA) NEG (NEG) Urine Ketones NEG (NEG) Urine Occult Blood TRACE (NEG) Urine Nitrite NEG (NEG) Urine Bilirubin NEG (NEG) Urine Urobilinogen NEG (NEG) Urine Leukocyte Esterase LARGE (NEG) Urine WBC (Auto) 10-30 /hpf (0-5) Urine RBC (Auto) 0-4 /hpf (0-4) Urine Hyaline Casts (Auto) 10-30 /lpf (0-5) Urine Epithelial Cells (Auto) >30 /lpf (0-5) Urine Bacteria (Auto) NEG (NEG) Urine Renal Epithelial Cells 0-5 /lpf (0-5) Urine Crystals CALCIUM OXALATE (NONE Labs reviewed by ED physician. Medications Administered Medications (Trade) Dose Ordered Sig/[place] Route Start Time Stop Time Status Last Admin Dose Admin Sodium Chloride 1,000 ml @ 999 mls/hr Q1H1M ONCE IV 10/19/16 15:35 10/19/16 16:35 DC 10/19/16 15:45 999 MLS/HR Sodium Chloride 1,000 ml @ 999 mls/hr Q1H1M STAT IV 10/19/16 16:45 10/19/16 17:45 DC 10/19/16 16:50 999 MLS/HR Sodium Chloride 150 ml @ 999 mls/hr Q10M STAT IV 10/19/16 17:19 10/19/16 17:28 DC 10/19/16 17:19 999 MLS/HR Piperacillin Sod/ Tazobactam Sod (Zosyn Iv) 4.5 gm NOW STAT IV 10/19/16 19:12 10/19/16 19:13 DC 10/19/16 20:13 4.5 GM Daptomycin 408 mg/ Sodium Chloride 58.16 ml @ 100 mls/hr NOW STAT IV 10/19/16 19:12 10/19/16 19:46 DC 10/19/16 19:43 100 MLS/HR Procedure Central Venous Catheter Indication: access Catheter type: arrow triple lumen Location: left IJ Verbal consent was obtained after the risks and benefits were explained, including but not limited to pneumothorax, hemothorax, vessel injury, bleeding, scarring, infection, pain, and bone/joint/nerve damage. At this time, the risks of the procedure are less than the risks of NOT performing the procedure. A time out was taken and the correct patient and site identified. The patient was placed in the Trendelenburg position and the skin was prepped in the standard fashion with chlorhexidine and full sterile drapes applied. The proper landmarks were identified with ultrasound, anesthetized with 1% lidocaine without epinephrine, and the needle was inserted through the skin in the standard fashion. The needle was carefully advanced into blood vessel lumen under ultrasound guidance. The guidewire was placed uneventfully. The vessel is dilated and the catheter was placed. It was sutured into position. There was good blood return from all ports. The patient tolerated the procedure well and there were no complications. Post procedure x-ray was normal. ED Course 1527: Past medical records reviewed. The patient was evaluated in room B08. A complete history and physical examination was performed. 1535: Sodium Chloride 1000 ml @ 999 mls/hr IV 1609: I reevaluated the patient. 1645: Sodium Chloride 1000 ml @ 999 mls/hr IV 1719: Sodium Chloride 150 ml @ 999 mls/hr IV 1912: Daptomycin 408 mg/Sodium Chloride 58.16 ml @ 100 mls/hr IV, Zosyn IV 4.5 gm IV 1940: I placed central venous catheter. Refer to procedure note for further details. 1931: Upon reexamination the patient is resting comfortably. I discussed results and treatment plan with the patient. I spoke with Dr. García from the [facility]. The patient will be evaluated for further management. Medical Decision Differential diagnosis: Etiologies such as sepsis, UTI, pneumonia, metabolic, electrolyte abnormalities , cardiac sources, intracerebral event, toxicologic, neurologic, as well as others were entertained. This is a 71-year-old female who presents emergency department hypotensive and tachycardic. Due to the inability to get laboratory work drawn from the patient a central line was placed as above. The patient does have an elevation in her white blood count appears to be in acute renal failure. She also has an elevation in her lactic acid. Blood cultures were drawn. Patient was pancultured and started on antibiotics. She received 30 mL's per kilogram of normal saline bolus. I did discuss case with the hospitalist service who admitted the patient. Patient and family were in agreement with the treatment plan. Medication Reconcilliation Current Medication List: was personally reviewed by me Blood Pressure Screening Patient's blood pressure: Low blood pressure Consults Time Called: 1913 Consulting Physician: Dr. García from the [facility] Returned Call: [address] García from the [facility]. Impression Primary Impression: Dehydration Critical Care I have personally spent greater than 90 minutes of critical care time in the direct management of this patient. This includes bedside care, interpretation of diagnostic studies, and testing, discussion with consultants, patient, and other required patient management activities. This 90 minutes is in excess of all separately billable procedures. Scribe Attestation The scribe's documentation has been prepared under my direction and personally reviewed by me in its entirety. I confirm that the note above accurately reflects all work, treatment, procedures, and medical decision making performed by me. Departure Information Dispostion Being Evaluated By Hospitalist Referrals Ghazala Whitten M.D. (PCP) Patient Instructions My [facility]
[2016-10-19] MEDS ORDERED: CZR25 PO (16:34)
[2016-10-19] MEDS ORDERED: GLC/500 PO (16:34)
[2016-10-19] MEDS ORDERED: UMEC1AER INH (16:34)
[2016-10-19] MEDS ORDERED: LISI-789 PO (16:34)
--- NOTE | 2016-10-19 16:37 | DIAGNOSTIC IMAGING REPORT ---
CHEST ONE VIEW PORTABLE CLINICAL HISTORY: Hypotension. COMPARISON STUDY: Chest radiograph August 06, 2016. FINDINGS: Lung volumes are normal. No pneumothorax or pleural effusion is present. Cardiomediastinal silhouette is normal. There is no evidence of pulmonary edema. Appearance of the chest is unchanged. IMPRESSION: No acute cardiopulmonary findings. Electronically signed by: Nicko Bar M.D. 10/19/2016 4:35 PM Dictated Date/Time: 10/19/2016 4:35 PM
[2016-10-19] MEDS ORDERED: SODIUM CHLORIDE 0.9% 1000ML 1,000 ML IV STA (16:45)
[2016-10-19] MEDS ORDERED: SODIUM CHLORIDE 0.9% 150ML 150 ML IV STA (17:19)
[2016-10-19 18:50] LABS: BASO % 0.4 %; BASO ABS # 0.05 K/uL (0-0.2); COMPLETE YES; EOS % 1.7 %; HEMATOCRIT 31.6 % (37-47); IG% 0.7 %; LYMPH % 21.7 %; LYMPH ABS # 2.84 K/uL (1.2-3.4); MEAN CELL VOLUME 85.4 fL (80-100); MEAN CORPUSCULAR HEMOGLOBIN 26.8 pg (25-34); MEAN CORPUSCULAR HGB CONC 31.3 g/dl (32-36); MEAN PLATELET VOLUME 9.5 fL (7.4-10.4); MONO % 7.1 %; NEUT % 68.4 %; PLATELET COUNT 301 K/uL (130-400); WHITE BLOOD COUNT 13.06 K/uL (4.8-10.8)
[2016-10-19 19:07] LABS: PROTHROMBIN TIME (PATIENT) 10.7 SECONDS (9.0-12.0)
[2016-10-19 19:11] LABS: ALT/SGPT 16 U/L (12-78); BLOOD UREA NITROGEN 40 mg/dl (7-18); BUN/CREATININE RATIO 13.8 (10-20); CALCIUM 8.2 mg/dl (8.5-10.1); CARBON DIOXIDE 20 mmol/L (21-32); CHLORIDE 101 mmol/L (98-107); GLUCOSE 76 mg/dl (70-99); SODIUM 134 mmol/L (136-145)
--- NOTE | 2016-10-19 19:11 | DIAGNOSTIC IMAGING REPORT ---
CHEST ONE VIEW PORTABLE HISTORY: 71 years-old Female status post line placement COMPARISON: Portable chest radiograph 10/19/2016 TECHNIQUE: Portable upright AP view of the chest FINDINGS: There has been interval placement of a left internal jugular central venous catheter with distal tip terminating to the right of midline in the expected region of the left brachiocephalic SVC confluence. No postprocedural pneumothorax is identified. Cardiac silhouette is within normal limits. There is atherosclerosis of the aorta. Lung ruffin are clear without overt pulmonary edema, focal airspace consolidations or pleural effusion. The bones appear grossly intact with moderate degenerative changes about the shoulders. The upper abdominal structures are within normal limits. IMPRESSION: 1. Status post placement of a left internal jugular central venous catheter with distal tip terminating to the right of midline, within the expected region of the left brachiocephalic SVC confluence. No postprocedural pneumothorax. 2. No acute cardiopulmonary process. The above report was generated using voice recognition software. It may contain grammatical, syntax or spelling errors. Electronically signed by: Valeriano Mai M.D. 10/19/2016 7:09 PM Dictated Date/Time: 10/19/2016 7:07 PM
[2016-10-19] MEDS ORDERED: DAPTOMYCIN IV STA (19:12)
[2016-10-19] MEDS ORDERED: PIPERACILLIN/TAZOBACTAM 4.5 GM/100ML D5W IV STA (19:12)
[2016-10-19] MEDS ORDERED: SODIUM CHLORIDE 0.9% IV STA (19:12)
[2016-10-19 19:15] LABS: ALB/GLOB RATIO 0.7 (0.9-2); ALKALINE PHOSPHATASE 40 U/L (45-117); AST/SGOT 13 U/L (15-37); CKMB/CK RATIO 1.8 (0-3.0)
[2016-10-19 19:27] LABS: URINE APPEARANCE CLOUDY (CLEAR); URINE BILIRUBIN NEG (NEG); URINE COLOR YELLOW; URINE EPITHELIAL CELL AUTO >30 /lpf (0-5); URINE NITRITE NEG (NEG); URINE SPECIFIC GRAVITY 1.015 (1.000-1.030); UROBILINOGEN NEG (NEG); ZZUR CULT IF INDIC CLEAN CATCH YES
[2016-10-19 19:30] LABS: MANUAL MICROSCOPIC REQUIRED? NO; REVIEW REQ? YES
--- NOTE | 2016-10-19 20:47 | History and Physical ---
History & Physical Date & Time of Service: Oct 19, 2016 at 20:47 . Chief Complaint: weakness . Primary Care Physician: Ghazala Whitten M.D. History of Present Illness Source: patient, family, clinic records, hospital records 71 YO female followed by Dr. Ghazala Whitten. Hospitalized at [facility] 07/30/16 with perforated bowel / sepsis. Complicated ICU course. Found to have adenocarcinoma of colon at hepatic flexure. Partial colectomy with formation of ileostomy performed. She was transferred to [facility] for rehab on 08/25/16 and subsequently returned home. She has had significant output via her ileostomy. Has WoundVac with home health nursing support for abdominal wound. Weak over past few days. Had 2 episodes of nausea and vomiting. Noted decreased urine output. Seen by home health nursing earlier today. Found to be hypotensive and referred to ED for evaluation. No fever. No cough. No dysuria or hematuria. . Past Medical/Surgical History Chronic and Resolved Medical Problems: (1) CKD (chronic kidney disease), stage III Status: Chronic (2) Colon cancer Status: Chronic (3) COPD, moderate Status: Chronic (4) Depression Status: Chronic (5) DM type 2 (diabetes mellitus, type 2) Status: Chronic (6) Fungemia Status: Resolved (7) Hypothyroidism Status: Chronic (8) Perforation of colon Status: Resolved (9) Peritonitis Status: Resolved (10) Polymicrobial sepsis Status: Resolved Family History SISTER Colon cancer FATHER Hypertension MOTHER Hypertension Heart disease SISTER Colon cancer Social History Smoking Status: Former Smoker Alcohol Use: occasionally Drug Use: none Marital Status: single Housing status: lives alone Occupational Status: retired Immunizations History of Influenza Vaccine: Yes Influenza Vaccine Date: Dec 23, 2015 History of Tetanus Vaccine?: Yes Tetanus Immunization Date: Oct 16, 2008 History of Pneumococcal: Yes Pneumococcal Date: July 30, 2015 Allergies Coded Allergies: No Known Allergies (Unverified , 10/19/16) Home Medications Scheduled Acetazolamide (Acetazolamide), 250 MG PO TID Albuterol Sulfate (Proair Respiclick), 2 PUFF INH QID Alendronate Sodium (Fosamax), 70 MG PO WK Ascorbic Acid (Vitamin C), 500 MG PO HS Calcitriol (Rocaltrol Cap), 0.25 MCG PO MWF Calcium Citrate-Vitamin D (Citracal + D3 Maximum), 1 TAB PO DAILY Cetirizine Hcl (Zyrtec), 5 MG PO DAILY Fluticasone Propionate (Nasal) (Flonase Allergy Relief), 2 SPRAYS MARI DAILY Levothyroxine Sodium (Levothyroxine Sodium), 88 MCG PO DAILY Lisinopril (Zestril), 2.5 MG PO DAILY Losartan Potassium (Losartan Potassium), 25 MG PO DAILY Metformin Hcl (Glucophage), 500 MG PO BID Multivitamin (Multivitamin), 1 TAB PO QAM Pravastatin (Pravachol ), 20 MG PO DAILY Sertraline (Zoloft), 50 MG PO HS Umeclidinium-Vilanterol (Anoro Ellipta 62.5-25 Mcg/INH), 1 PUFF INH DAILY Scheduled PRN Aluminum Hydroxide-Mag Trisil (Gaviscon), 2 TABS PO QID PRN for GI Upset Review of Systems Constitutional: + weight loss, No fever Eyes: No worsening of vision, No diplopia ENT: No nasal symptoms, No sore throat Respiratory: No cough, No shortness of breath Cardiovascular: No chest pain, No edema Abdomen: + nausea, + vomiting, No GI bleeding Musculoskeletal: + joint pain Genitourinary - Female: No dysuria, No hematuria Neurologic: + problem reported (no headache) Endocrine: + fatigue, + problem reported (blood sugars well-controlled), No excessive thirst Hematologic / Lymphatic: No abnormal bleeding/bruising, No swollen lymph nodes Integumentary: + problem reported (abdominal wound) Physical Exam Vital Signs Date Time Temp Pulse Resp B/P (MAP) Pulse Ox O2 Delivery O2 Flow Rate FiO2 10/19/16 20:43 78 24 104/51 100 10/19/16 20:16 104/51 10/19/16 20:15 78 25 100 10/19/16 20:13 101/60 10/19/16 20:01 73/31 10/19/16 20:00 75 31 96 10/19/16 19:55 75 22 96 10/19/16 19:50 74 23 93 10/19/16 19:46 94/32 10/19/16 19:45 73 21 99 10/19/16 19:40 73 19 95 10/19/16 19:35 71 25 97 10/19/16 19:31 78/45 10/19/16 19:30 72 24 96 10/19/16 19:25 72 19 98 10/19/16 19:20 71 26 100 10/19/16 19:16 85/45 10/19/16 19:15 71 27 97 10/19/16 19:13 74 20 100/60 96 Room Air 10/19/16 18:31 87/46 10/19/16 18:30 77 25 95 10/19/16 18:16 90/55 10/19/16 18:15 74 19 96 10/19/16 18:01 85/51 10/19/16 18:00 72 26 10/19/16 17:46 83/48 10/19/16 17:45 74 18 10/19/16 17:31 91/53 10/19/16 17:30 72 20 96 10/19/16 17:27 93/46 10/19/16 17:15 69 17 97 10/19/16 17:01 77/40 10/19/16 17:00 71 15 97 10/19/16 16:51 70 16 82/50 96 Room Air 10/19/16 16:37 71 20 70/40 100 Room Air 10/19/16 16:08 71 10/19/16 16:05 69 16 73/38 95 Room Air 10/19/16 15:35 71 16 61/34 100 Room Air 10/19/16 15:35 100 Room Air 10/19/16 15:21 36.3 106 20 66/39 94 Room Air General Appearance: WD/WN, no apparent distress Head: normocephalic, atraumatic Eyes: normal inspection, PERRL, EOMI, sclerae normal ENT: hearing grossly normal, pharynx normal Neck: supple, no adenopathy, thyroid normal, trachea midline, + pertinent finding (left IJ catheter) Respiratory/Chest: lungs clear, no respiratory distress, no accessory muscle use Cardiovascular: regular rate, rhythm, no edema, no gallop, no JVD, no murmur, normal peripheral pulses Abdomen/GI: + pertinent finding (quiet bowel sounds, soft, nontender, ileostomy RLQ, WoundVac dressing applied to midline incision) Extremities/Musculoskelatal: no calf tenderness, no pedal edema Neurologic/Psych: clinical radiologist II-XII nml as tested (PERRL, EOMI, no facial palsy, no dysarthria), no motor/sensory deficits (motor strength essentially 5/5 bilat), alert, normal mood/affect, oriented x 3 Skin: + pertinent finding (WoundVac dressing applied to midline incision; no surrounding erythema or warmth) Diagnostics Laboratory Results Results Past 24 Hours Test 10/19/16 16:13 10/19/16 18:30 10/19/16 19:00 Range/Units Bedside Lactic Acid Venous 1.97 0.90-1.70 mmol/L White Blood Count 13.06 4.8-10.8 K/uL Red Blood Count 3.70 4.2-5.4 M/uL Hemoglobin 9.9 12.0-16.0 g/dL Hematocrit 31.6 37-47 % Mean Corpuscular Volume 85.4 80-100 fL Mean Corpuscular Hemoglobin 26.8 25-34 pg Mean Corpuscular Hemoglobin Concent 31.3 32-36 g/dl Platelet Count 301 130-400 K/uL Mean Platelet Volume 9.5 7.4-10.4 fL Neutrophils (%) (Auto) 68.4 % Lymphocytes (%) (Auto) 21.7 % Monocytes (%) (Auto) 7.1 % Eosinophils (%) (Auto) 1.7 % Basophils (%) (Auto) 0.4 % Neutrophils # (Auto) 8.93 1.4-6.5 K/uL Lymphocytes # (Auto) 2.84 1.2-3.4 K/uL Monocytes # (Auto) 0.93 0.11-0.59 K/uL Eosinophils # (Auto) 0.22 0-0.5 K/uL Basophils # (Auto) 0.05 0-0.2 K/uL RDW Standard Deviation 48.3 36.4-46.3 fL RDW Coefficient of Variation 15.3 11.5-14.5 % Immature Granulocyte % (Auto) 0.7 % Immature Granulocyte # (Auto) 0.09 0.00-0.02 K/uL Prothrombin Time 10.7 9.0-12.0 SECONDS Prothromb Time International Ratio 1.0 0.9-1.1 Activated Partial Thromboplast Time 26.0 21.0-31.0 SECONDS Partial Thromboplastin Ratio 1.0 Sodium Level 134 136-145 mmol/L Potassium Level 3.0 3.5-5.1 mmol/L Chloride Level 101 98-107 mmol/L Carbon Dioxide Level 20 21-32 mmol/L Anion Gap 13.0 3-11 mmol/L Blood Urea Nitrogen 40 7-18 mg/dl Creatinine 2.90 0.60-1.20 mg/dl Est Creatinine Clear Calc Drug Dose 16.7 ml/min Estimated GFR () 18.2 Estimated GFR (Non- 15.7 BUN/Creatinine Ratio 13.8 10-20 Random Glucose 76 70-99 mg/dl Calcium Level 8.2 8.5-10.1 mg/dl Total Bilirubin 0.3 0.2-1 mg/dl Aspartate Amino Transf (AST/SGOT) 13 15-37 U/L Alanine Aminotransferase (ALT/SGPT) 16 12-78 U/L Alkaline Phosphatase 40 45-117 U/L Total Creatine Kinase 39 26-192 U/L Creatine Kinase MB 0.7 0.5-3.6 ng/ml Creatine Kinase MB Ratio 1.8 0-3.0 Troponin I < 0.015 0-0.045 ng/ml Total Protein 5.9 6.4-8.2 gm/dl Albumin 2.5 3.4-5.0 gm/dl Globulin 3.4 2.5-4.0 gm/dl Albumin/Globulin Ratio 0.7 0.9-2 Urine Color YELLOW Urine Appearance CLOUDY CLEAR Urine pH 5.0 4.5-7.5 Urine Specific [place] 1.015 1.000-1.030 Urine Protein NEG NEG Urine Glucose (UA) NEG NEG Urine Ketones NEG NEG Urine Occult Blood TRACE NEG Urine Nitrite NEG NEG Urine Bilirubin NEG NEG Urine Urobilinogen NEG NEG Urine Leukocyte Esterase LARGE NEG Urine WBC (Auto) 10-30 0-5 /hpf Urine RBC (Auto) 0-4 0-4 /hpf Urine Hyaline Casts (Auto) 10-30 0-5 /lpf Urine Epithelial Cells (Auto) >30 0-5 /lpf Urine Bacteria (Auto) NEG NEG Urine Renal Epithelial Cells 0-5 0-5 /lpf Urine Crystals CALCIUM OXALATE NONE PRSENT Microbiology Results 10/19/16 Blood Culture, Received Pending 10/19/16 Blood Culture, Received Pending 10/19/16 Urine Culture, Received Pending Diagnostic Radiology CHEST ONE VIEW PORTABLE CLINICAL HISTORY: Hypotension. COMPARISON STUDY: Chest radiograph August 06, 2016. FINDINGS: Lung volumes are normal. No pneumothorax or pleural effusion is present. Cardiomediastinal silhouette is normal. There is no evidence of pulmonary edema. Appearance of the chest is unchanged. IMPRESSION: No acute cardiopulmonary findings. Electronically signed by: Nicko Bar M.D. 10/19/2016 4:35 PM Dictated Date/Time: 10/19/2016 4:35 PM . Impression Assessment and Plan HYPOTENSION Presented to ED with severe hypotension with systolic blood pressures in the 60s. Blood pressures have improved with fluid resuscitation. Most likely that hypotension due to volume depletion from ileostomy output. Sepsis must be considered, but seems less likely at this time. Blood cultures obtained in ED and patient was started on broad-spectrum coverage with IV daptomycin and piperacillin/tazobactam. Continue empiric antibiotics tentatively for 48 hours. Check procalcitonin with next labs. Fluid boluses as necessary to maintain adequate MAP. No apparent need for pressors at this time. ACUTE KIDNEY INJURY Serum creatinine 2.9 compared to baseline of 1.0 on 10/11/16. Acute kidney injury most likely secondary to volume depletion. Receiving fluid resuscitation. Hold acetazolamide. Avoid potential nephrotoxins. Consult Nephrology if no improvement. HYPOKALEMIA Serum potassium 3.0. Replace with caution. DM TYPE 2 Usually well-controlled. Random blood sugar in ED 76. Hold metformin during hospital stay. Insulin coverage as necessary with BSG goal 140-180 per guidelines. COLON CA Presented with bowel perforation secondary to underlying carcinoma. Follow-up management per General Surgery. ABDOMINAL WOUND Slow healing abdominal incision, currently being managed with WoundVac. Consult Wound Care Nursing. VTE PROPHYLAXIS Moderately high risk for VTE. SQ heparin. Ambulate as able. RESUSCITATION STATUS Discussed with patient. She does have a living will. She would like resuscitation attempted in the event of a cardiopulmonary arrest if there is a reasonable chance of a meaningful recovery, but does not want prolonged extraordinary measures if prognosis is poor. Therefore, code status = "Level 1" (full resuscitation). DISPOSITION Admit to ICU. Expected discharge to home. Internal Medicine follow-up with Dr. Ghazala Whitten. Surgical follow-up with Dr. Powers. . VTE Prophylaxis VTE Risk Assessment Done? Y/N: Yes Risk Level: Moderate Given or contraindicated: Unfractionated heparin SQ Additional Copies To Дмитрий Powers M.D.
[2016-10-19] MEDS ORDERED: LEVO88TA3 PO (20:53)
[2016-10-19] MEDS ORDERED: GLUCOSE 40% GEL 15 GM TUBE PO PRN (21:45)
[2016-10-19] MEDS ORDERED: DEXTROSE 50% 50 ML SYR IV PRN (21:45)
[2016-10-19] MEDS ORDERED: GLUCAGON FOR INJ 1 MG VIAL SQ PRN (21:45)
[2016-10-19] MEDS ORDERED: GLUCOSE 10 TABS/TUBE PO PRN (21:45)
[2016-10-19 22:00] VITALS: BP 86/40; PULSE 71; O2SAT 94
[2016-10-19] MEDS ORDERED: SERTRALINE HCL 50 MG TAB PO ONE (22:00)
[2016-10-19] MEDS: SODIUM CHLORIDE 0.9% 1000ML 1,000 ML IV SCH (22:05)
[2016-10-19 22:12] VITALS: BP 93/43; PULSE 74; TEMP 36.8; O2SAT 97; BMI 28.3
[2016-10-19] MEDS: POTASSIUM CHLR 10 MEQ / WTR 10 MEQ in PREMIXED WATER 100 ML IV SCH ×2 (22:30→23:38)
[2016-10-19] MEDS ORDERED: PIPERACILL/TAZOBAC CONSULT ACTIVE PRN (23:00)
[2016-10-19 23:01] VITALS: BP 77/29; PULSE 69; O2SAT 93
[2016-10-19] MEDS: SODIUM CHLORIDE 0.9% 500ML 500 ML IV PRN (23:06)
[2016-10-19] MEDS: HEPARIN SOD 5000 UNIT/0.5 ML CARP SQ SCH (23:12)
[2016-10-19 23:15] VITALS: PULSE 68; O2SAT 96
[2016-10-19 23:35] VITALS: BP 76/28; PULSE 67; O2SAT 96
[2016-10-19 23:59] VITALS: O2SAT 98
[2016-10-20] VITALS (19 sets, daily range): BP systolic 72–127; BP diastolic 34–95; PULSE 57–77; TEMP 36.4–37.1; O2SAT 77–100; Ht 157.5 cm; Wt 69.4 kg
[2016-10-20] MEDS: SODIUM CHLORIDE 0.9% 500ML 500 ML IV PRN ×3 (00:02→04:06)
[2016-10-20 01:17] LABS: HEMATOCRIT 31.3 % (37-47)
[2016-10-20 01:41] LABS: BUN/CREATININE RATIO 16.4 (10-20); CALCIUM 7.8 mg/dl (8.5-10.1); CREATININE 2.1 mg/dl (0.60-1.20); MAGNESIUM 1.7 mg/dl (1.8-2.4); POTASSIUM 3.4 mmol/L (3.5-5.1)
[2016-10-20] MEDS ORDERED: MAGNESIUM SULFATE 1GM / D5W 1 GM in PREMIXED IN D5W 100 ML IV ONE (02:00)
[2016-10-20] MEDS ORDERED: PIPERACILL/TAZOBAC IV 3.375 GM in DEXTROSE 5% 100ML 100 ML IV SCH (02:00)
[2016-10-20] MEDS: POTASSIUM CHLR 10 MEQ / WTR 10 MEQ in PREMIXED WATER 100 ML IV SCH ×2 (03:13→04:06)
[2016-10-20] MEDS: SODIUM CHLORIDE 0.9% 1000ML 1,000 ML IV SCH (04:06)
[2016-10-20] MEDS: LEVOTHYROXINE 88 MCG TAB PO SCH (05:43)
[2016-10-20 05:49] LABS: HEMATOCRIT 31.1 % (37-47); MEAN CELL VOLUME 85.7 fL (80-100); MEAN CORPUSCULAR HGB CONC 31.5 g/dl (32-36); MEAN PLATELET VOLUME 9.1 fL (7.4-10.4); PLATELET COUNT 265 K/uL (130-400); RED BLOOD COUNT 3.63 M/uL (4.2-5.4); WHITE BLOOD COUNT 9.42 K/uL (4.8-10.8)
[2016-10-20 06:23] LABS: BUN/CREATININE RATIO 18.3 (10-20); CALCIUM 7.2 mg/dl (8.5-10.1); CREATININE 1.6 mg/dl (0.60-1.20); MAGNESIUM 1.8 mg/dl (1.8-2.4); POTASSIUM 3.6 mmol/L (3.5-5.1)
[2016-10-20 06:28] LABS: ALB/GLOB RATIO 0.7 (0.9-2)
[2016-10-20] MEDS: INSULIN ASPART 100 UNITS/ML 3 ML PEN SC SCH ×4 (07:58→19:49)
[2016-10-20 08:40] LABS: ESTIMATED AVERAGE GLUCOSE 111 mg/dl; HA1C FLAG Normal (Normal)
[2016-10-20] MEDS ORDERED: [UNRECOGNIZED DRUG - OTHER] INH SCH (09:00)
[2016-10-20] MEDS ORDERED: UMECLIDINIUM VILANTEROL INH SCH (09:00)
[2016-10-20] MEDS: CETIRIZINE HCL 10 MG TAB PO SCH (09:04)
[2016-10-20] MEDS: NORMOSOL R 1,000 ML IV SCH ×2 (09:04→18:24)
[2016-10-20] MEDS: PANTOprazole SOD 40 MG TAB PO SCH (09:05)
[2016-10-20] MEDS: FLUTICASONE PROPIONATE NA SPR 16 GM BTL NAE SCH (09:05)
[2016-10-20] MEDS: ALBUTEROL HFA 8 GM INHALER INH SCH ×4 (09:05→19:41)
[2016-10-20] MEDS: HEPARIN SOD 5000 UNIT/0.5 ML CARP SQ SCH ×2 (09:09→19:49)
--- NOTE | 2016-10-20 09:10 | Progress Note ---
Medicine Progress Note Date & Time of Visit: Oct 20, 2016 at 08:58. Subjective patient seen resting in bed, comfortable, alert states she feels improved compared to last night denies dyspnea, abdominal pain ,nausea no headache, cough, dysuria, pain on the abdominal wound sites no other symptoms Objective Last 8 Hrs Date Time Temp Pulse Resp B/P (MAP) Pulse Ox O2 Delivery O2 Flow Rate FiO2 10/20/16 06:00 63 18 91/40 (57) 95 Room Air 10/20/16 05:00 67 20 93/40 94 10/20/16 04:00 36.4 67 20 80/38 (52) 94 Room Air 10/20/16 04:00 94 Room Air 10/20/16 03:00 69 20 100/53 95 10/20/16 02:00 67 18 72/35 (47) 95 Room Air 10/20/16 01:00 68 48 110/43 (66) 98 Physical Exam: General- oriented x 3, not in distress, speaks in sentences with no effort Head- atraumatic Eyes- EOMI, anicteric ENT- oropharynx clear Neck- supple, no JVD, no adenopathy, no thyromegaly Lungs- clear breath sounds bilaterally, no rales/wheezes Heart- regular rhythm; no murmur, normal rate Abdomen- normal bowel sounds, non distended, soft, nontender Colostomy site, Abdominal wound, Abdominal Fistula: no signs of infection Extremities- no pretibial edema, no calf tenderness; peripheral pulses intact Neuro- alert, oriented x 3; no gross focal deficits Skin- warm & dry Laboratory Results: Last 24 Hours Test 10/19/16 16:13 10/19/16 18:30 10/19/16 19:00 10/19/16 21:21 Bedside Lactic Acid Venous 1.97 mmol/L White Blood Count 13.06 K/uL Red Blood Count 3.70 M/uL Hemoglobin 9.9 g/dL Hematocrit 31.6 % Mean Corpuscular Volume 85.4 fL Mean Corpuscular Hemoglobin 26.8 pg Mean Corpuscular Hemoglobin Concent 31.3 g/dl Platelet Count 301 K/uL Mean Platelet Volume 9.5 fL Neutrophils (%) (Auto) 68.4 % Lymphocytes (%) (Auto) 21.7 % Monocytes (%) (Auto) 7.1 % Eosinophils (%) (Auto) 1.7 % Basophils (%) (Auto) 0.4 % Neutrophils # (Auto) 8.93 K/uL Lymphocytes # (Auto) 2.84 K/uL Monocytes # (Auto) 0.93 K/uL Eosinophils # (Auto) 0.22 K/uL Basophils # (Auto) 0.05 K/uL RDW Standard Deviation 48.3 fL RDW Coefficient of Variation 15.3 % Immature Granulocyte % (Auto) 0.7 % Immature Granulocyte # (Auto) 0.09 K/uL Prothrombin Time 10.7 SECONDS Prothromb Time International Ratio 1.0 Activated Partial Thromboplast Time 26.0 SECONDS Partial Thromboplastin Ratio 1.0 Sodium Level 134 mmol/L Potassium Level 3.0 mmol/L Chloride Level 101 mmol/L Carbon Dioxide Level 20 mmol/L Anion Gap 13.0 mmol/L Blood Urea Nitrogen 40 mg/dl Creatinine 2.90 mg/dl Est Creatinine Clear Calc Drug Dose 16.7 ml/min Estimated GFR () 18.2 Estimated GFR (Non- 15.7 BUN/Creatinine Ratio 13.8 Random Glucose 76 mg/dl Calcium Level 8.2 mg/dl Total Bilirubin 0.3 mg/dl Aspartate Amino Transf (AST/SGOT) 13 U/L Alanine Aminotransferase (ALT/SGPT) 16 U/L Alkaline Phosphatase 40 U/L Total Creatine Kinase 39 U/L Creatine Kinase MB 0.7 ng/ml Creatine Kinase MB Ratio 1.8 Troponin I < 0.015 ng/ml Total Protein 5.9 gm/dl Albumin 2.5 gm/dl Globulin 3.4 gm/dl Albumin/Globulin Ratio 0.7 Urine Color YELLOW Urine Appearance CLOUDY Urine pH 5.0 Urine Specific [place] 1.015 Urine Protein NEG Urine Glucose (UA) NEG Urine Ketones NEG Urine Occult Blood TRACE Urine Nitrite NEG Urine Bilirubin NEG Urine Urobilinogen NEG Urine Leukocyte Esterase LARGE Urine WBC (Auto) 10-30 /hpf Urine RBC (Auto) 0-4 /hpf Urine Hyaline Casts (Auto) 10-30 /lpf Urine Epithelial Cells (Auto) >30 /lpf Urine Bacteria (Auto) NEG Urine Renal Epithelial Cells 0-5 /lpf Urine Crystals CALCIUM OXALATE Bedside Glucose 92 mg/dl Test 10/20/16 01:05 10/20/16 05:41 10/20/16 05:45 Hemoglobin 9.9 g/dL 9.8 g/dL Hematocrit 31.3 % 31.1 % Sodium Level 138 mmol/L 140 mmol/L Potassium Level 3.4 mmol/L 3.6 mmol/L Chloride Level 109 mmol/L 114 mmol/L Carbon Dioxide Level 19 mmol/L 19 mmol/L Anion Gap 10.0 mmol/L 7.0 mmol/L Blood Urea Nitrogen 34 mg/dl 29 mg/dl Creatinine 2.10 mg/dl 1.60 mg/dl Est Creatinine Clear Calc Drug Dose 22.9 ml/min 30.6 ml/min Estimated GFR () 27.0 37.4 Estimated GFR (Non- 23.3 32.3 BUN/Creatinine Ratio 16.4 18.3 Random Glucose 79 mg/dl 81 mg/dl Calcium Level 7.8 mg/dl 7.2 mg/dl Magnesium Level 1.7 mg/dl 1.8 mg/dl Total Creatine Kinase 45 U/L Procalcitonin 0.10 ng/ml White Blood Count 9.42 K/uL Red Blood Count 3.63 M/uL Mean Corpuscular Volume 85.7 fL Mean Corpuscular Hemoglobin 27.0 pg Mean Corpuscular Hemoglobin Concent 31.5 g/dl RDW Standard Deviation 48.7 fL RDW Coefficient of Variation 15.3 % Platelet Count 265 K/uL Mean Platelet Volume 9.1 fL Estimated Average Glucose 111 mg/dl Hemoglobin A1c 5.5 % Total Bilirubin 0.2 mg/dl Aspartate Amino Transf (AST/SGOT) 16 U/L Alanine Aminotransferase (ALT/SGPT) 18 U/L Alkaline Phosphatase 39 U/L Total Protein 5.2 gm/dl Albumin 2.1 gm/dl Globulin 3.1 gm/dl Albumin/Globulin Ratio 0.7 Bedside Glucose 87 mg/dl Date/Time Source Procedure Growth Status 10/19/16 16:05 Blood Blood Culture Pending Received 10/19/16 15:45 Blood Blood Culture Pending Received 10/19/16 21:45 Nasal MRSA DNA Surveillance Screen - Final Specimen Negative for MRSA by DNA Probe Complete 10/19/16 19:00 Urine , Clean Catch Urine Culture Pending Received Assessment & Plan 71 year old female with history of Colon Cancer, s/p Resection, s/p Ileostomy, DM, HTN, CKD 3, COPD presenting with low blood pressures. HYPOTENSION secondary to VOLUME DEPLETION FROM ILEOSTOMY OUTPUT R/O SEPSIS Presented to ED with severe hypotension with systolic blood pressures in the 60s. Blood pressures have improved with fluid resuscitation. -- continue IV fluids -- ff up cultures on Dapto + Zosyn ID condulted ACUTE KIDNEY INJURY Serum creatinine 2.9 compared to baseline of 1.0 on 10/11/16. Acute kidney injury most likely secondary to volume depletion. -- continue IV fluids -- hold Acetazolomide, Lisinopril, Losartan crea improved from 2.9 to 1.6 HYPOKALEMIA resolved DM TYPE 2 Hold metformin during hospital stay. ISS COLON CA During last admission in July, patient had bowel perforation secondary to underlying carcinoma. Follow-up management per General Surgery. Will follow up with Oncologist as outpatient ABDOMINAL WOUND Slow healing abdominal incision, currently being managed with WoundVac. No signs of infection Consulted Wound Care Nursing. VTE PROPHYLAXIS Moderately high risk for VTE. SQ heparin. Ambulate as able. RESUSCITATION STATUS Full Code DISPOSITION anticipate d/c home when medically stable will need PT/OT eval Internal Medicine follow-up with Dr. Ghazala Whitten. Surgical follow-up with Dr. Powers. Current Inpatient Medications: Current Inpatient Medications Medications (Trade) Dose Ordered Sig/[place] Route Start Time Stop Time Status Last Admin Dose Admin Heparin Sodium (Porcine) (Heparin Sq 5000 Unit/0.5ml) 5,000 unit Q12 SQ 10/19/16 21:00 11/18/16 20:59 10/19/16 23:12 5,000 UNIT Pantoprazole Sodium (Protonix Tab) 40 mg DAILY PO 10/20/16 09:00 11/19/16 08:59 Cetirizine HCl (zyrTEC TAB) 5 mg DAILY PO 10/20/16 09:00 11/19/16 08:59 Fluticasone Propionate (Flonase Nasal [place]) 2 sprays DAILY MARI 10/20/16 09:00 11/19/16 08:59 Levothyroxine Sodium (Synthroid Tab) 88 mcg DAILYBB PO 10/20/16 06:00 11/19/16 05:59 10/20/16 05:43 88 MCG Sertraline HCl (Zoloft Tab) 50 mg HS PO 10/20/16 21:00 11/19/16 20:59 Albuterol (Ventolin Hfa Inhaler) 2 puffs QID INH 10/20/16 09:00 11/19/16 08:59 Sodium Chloride 500 ml @ 999 mls/hr Q31M PRN IV 10/19/16 21:15 10/20/16 04:06 999 MLS/HR Insulin Aspart (novoLOG ASPART) SLIDING SCALE G... ACHS SC 10/20/16 07:00 11/19/16 06:59 Daptomycin 400 mg/ Sodium Chloride 58 ml @ 100 mls/hr Q2D@1900 IV 10/21/16 19:00 10/21/16 20:00 Piperacillin Sod/ Tazobactam Sod 3.375 gm/Dextrose 115 ml @ 28.75 mls/ hr Q12@0200,1400 IV 10/20/16 02:00 10/22/16 01:59 10/20/16 01:34 28.75 MLS/HR Glucose (Glucose 40% Gel) 15-30 GRAMS 15 GRAMS... UD PRN PO 10/19/16 21:45 11/18/16 21:44 Glucose (Glucose Chew Tab) 4-8 Tablets 4 Tabl... UD PRN PO 10/19/16 21:45 11/18/16 21:44 Dextrose (Dextrose 50% 50ML Syringe) 25-50ML OF 50% DW IV FOR... UD PRN IV 10/19/16 21:45 11/18/16 21:44 Glucagon (Glucagon Inj) 1 mg UD PRN SQ 10/19/16 21:45 11/18/16 21:44 Miscellaneous Information (Order Awaiting Action) 1 ea QS N/A 10/20/16 00:00 11/19/16 00:00 Piperacillin Sod/ Tazobactam Sod (Consult) 1 ea UD PRN N/A 10/19/16 23:00 10/29/16 22:59 Heparin Sodium (Porcine) (Heparin 10 Unit/ ml 5 ml Flush) 5 ml PRN PRN FLUSH 10/20/16 00:30 11/19/16 00:29 Parenteral Electrolyte Solution 1,000 ml @ 100 mls/hr Q10H IV 10/20/16 08:15 11/19/16 08:14
[2016-10-20] MEDS ORDERED: DAPTOMYCIN CONSULT ACTIVE PRN ×2 (11:30)
[2016-10-20] MEDS: PIPERACILL/TAZOBAC IV 3.375 GM in DEXTROSE 5% 100ML 100 ML IV SCH ×2 (12:43→19:41)
--- NOTE | 2016-10-20 12:46 | Clinical Documentation Query ---
CLINICAL DOCUMENTATION QUERY Dr. MOSS, In your clinical opinion is this patient being managed for: ( ) Hypovolemic shock in the setting of volume depletion from ileostomy output ( ) Other explanation of clinical findings (Please Explain) ( ) Unable to determine (Please Define) ( ) Need to Discuss ( ) Not Agree The medical record reflects the following clinical findings, treatment, and risk factors. Clinical Indicators:71 yo female presenting with reported lack of urinary output "in about a day". BP 66/39, Hr 106 upon presentation to ER. Unable to obtain blood work from pt, necessitating insertion of central line. Per nursing documentation in ER, pt is pale, cool with tenting of skin, dizziness with position changes. Treatment: Insertion of central line, IV fluid resuscitation with NSS boluses and normosol continuous infusion, ICU monitoring, I/O, daily wts Risk Factors: significant volume loss d/t ileostomy output Please clarify and document your clinical opinion in the progress notes and discharge summary. Terms such as "probable", "suspected", "likely", "questionable", "possible", or "still to be ruled out" are acceptable. IF IN AGREEMENT, YOU MUST DOCUMENT ABOVE DIAGNOSTIC STATEMENT IN DAILY PROGRESS NOTES AND DISCHARGE SUMMARY. This document is not part of the patient's record. Thank You, Denise Padgett RN [phone]
--- NOTE | 2016-10-20 15:17 | Medical Consult ---
Consultation Date of Consultation: Oct 20, 2016. Attending Physician: Marco A Valente MD Reason for Consultation: Possible sepsis, empiric daptomycin use History of Present Illness 71-year-old female with admission in July for perforation of colon found to be secondary to adenocarcinoma, requiring resection and ileostomy placement. Over the last several days, patient has developed increasing output near her ostomy, along with nausea and vomiting, and was found to be severely hypotensive and brought to the emergency room and admitted for further management. She has been started on broad-spectrum antibiotic therapy, with cultures negative to date. She has significantly improved with fluid resuscitation, and says she is feeling reasonably well at present time. She has minimal abdominal pain. Ostomy output has decreased. No obvious other site of infection evident on x- rays or cultures. Past Medical/Surgical History Medical Problems: (1) Closed head injury Status: Acute (2) Dehydration Status: Acute (3) Dehydration Status: Acute (4) Fall Status: Acute (5) Hypothermia Status: Acute (6) Perforated viscus Status: Acute (7) Perforation of cecum Status: Acute (8) Pressure ulcer Status: Acute (9) Rhabdomyolysis Status: Acute (10) Septic shock Status: Acute (11) UTI (urinary tract infection) Status: Acute Medical Problems: (1) Acute blood loss anemia (2) CKD (chronic kidney disease), stage III (3) Colon cancer (4) COPD, moderate (5) Depression (6) DM type 2 (diabetes mellitus, type 2) (7) Fungemia (8) Hypotension (9) Hypothyroidism (10) Perforation of colon (11) Peritonitis (12) Polymicrobial sepsis Surgical Problems: (1) S/P oophorectomy Family History Colon cancer SISTER SISTER Heart disease MOTHER Hypertension FATHER MOTHER Social History Smoking Status: Former Smoker Alcohol Use: occasionally Drug Use: none Marital Status: single Occupation Status: retired Allergies Coded Allergies: No Known Allergies (Unverified , 10/19/16) Current Inpatient Medications Current Inpatient Medications Medications (Trade) Dose Ordered Sig/[place] Route Start Time Stop Time Status Last Admin Dose Admin Heparin Sodium (Porcine) (Heparin Sq 5000 Unit/0.5ml) 5,000 unit Q12 SQ 10/19/16 21:00 11/18/16 20:59 10/20/16 09:09 5,000 UNIT Pantoprazole Sodium (Protonix Tab) 40 mg DAILY PO 10/20/16 09:00 11/19/16 08:59 10/20/16 09:05 40 MG Cetirizine HCl (zyrTEC TAB) 5 mg DAILY PO 10/20/16 09:00 11/19/16 08:59 10/20/16 09:04 5 MG Fluticasone Propionate (Flonase Nasal [place]) 2 sprays DAILY MARI 10/20/16 09:00 11/19/16 08:59 10/20/16 09:05 2 SPRAYS Levothyroxine Sodium (Synthroid Tab) 88 mcg DAILYBB PO 10/20/16 06:00 11/19/16 05:59 10/20/16 05:43 88 MCG Sertraline HCl (Zoloft Tab) 50 mg HS PO 10/20/16 21:00 11/19/16 20:59 Albuterol (Ventolin Hfa Inhaler) 2 puffs QID INH 10/20/16 09:00 11/19/16 08:59 10/20/16 13:06 2 PUFFS Sodium Chloride 500 ml @ 999 mls/hr Q31M PRN IV 10/19/16 21:15 10/20/16 04:06 999 MLS/HR Insulin Aspart (novoLOG ASPART) SLIDING SCALE G... ACHS SC 10/20/16 07:00 11/19/16 06:59 Glucose (Glucose 40% Gel) 15-30 GRAMS 15 GRAMS... UD PRN PO 10/19/16 21:45 11/18/16 21:44 Glucose (Glucose Chew Tab) 4-8 Tablets 4 Tabl... UD PRN PO 10/19/16 21:45 11/18/16 21:44 Dextrose (Dextrose 50% 50ML Syringe) 25-50ML OF 50% DW IV FOR... UD PRN IV 10/19/16 21:45 11/18/16 21:44 Glucagon (Glucagon Inj) 1 mg UD PRN SQ 10/19/16 21:45 11/18/16 21:44 Miscellaneous Information (Order Awaiting Action) 1 ea QS N/A 10/20/16 00:00 11/19/16 00:00 Piperacillin Sod/ Tazobactam Sod (Consult) 1 ea UD PRN N/A 10/19/16 23:00 10/29/16 22:59 Heparin Sodium (Porcine) (Heparin 10 Unit/ ml 5 ml Flush) 5 ml PRN PRN FLUSH 10/20/16 00:30 11/19/16 00:29 Parenteral Electrolyte Solution 1,000 ml @ 100 mls/hr Q10H IV 10/20/16 08:15 11/19/16 08:14 10/20/16 09:04 100 MLS/HR Daptomycin 400 mg/ Sodium Chloride 58 ml @ 100 mls/hr DAILY@1900 IV 10/20/16 19:00 10/21/16 23:59 Piperacillin Sod/ Tazobactam Sod 3.375 gm/Dextrose 115 ml @ 28.75 mls/ hr Q8H IV 10/20/16 12:00 10/21/16 23:59 10/20/16 12:43 28.75 MLS/HR Daptomycin (Consult) 1 ea UD PRN N/A 10/20/16 11:30 11/19/16 11:29 Review of Systems Constitutional: + weight loss, + weakness, No fever Eyes: No problem reported ENT: No problem reported Respiratory: No problem reported Cardiovascular: No problem reported Abdomen: + nausea, + vomiting Musculoskeletal: + joint pain Genitourinary - Female: No problem reported Neurologic: No problem reported Psychiatric: No problem reported Endocrine: No problem reported Hematologic / Lymphatic: No problem reported Integumentary: No problem reported Allergic / Immunologic: No problem reported Physical Exam Date Time Temp Pulse Resp B/P (MAP) Pulse Ox O2 Delivery O2 Flow Rate FiO2 10/20/16 14:19 76 19 105/95 (98) 99 Room Air 10/20/16 13:04 70 18 94/43 (60) 99 Room Air 10/20/16 12:03 36.9 77 20 106/83 (91) 96 10/20/16 12:00 Room Air 10/20/16 11:02 72 18 98/81 (87) 97 10/20/16 10:01 68 18 117/53 (74) 95 Room Air 10/20/16 09:02 69 24 127/54 (78) 97 Room Air 10/20/16 08:01 36.7 66 25 97/42 (60) 96 Room Air 10/20/16 08:00 Room Air 10/20/16 08:00 Room Air 10/20/16 07:30 68 19 97/46 (63) 97 Room Air 10/20/16 06:00 63 18 91/40 (57) 95 Room Air 10/20/16 05:00 67 20 93/40 94 10/20/16 04:00 36.4 67 20 80/38 (52) 94 Room Air 10/20/16 04:00 94 Room Air 10/20/16 03:00 69 20 100/53 95 10/20/16 02:00 67 18 72/35 (47) 95 Room Air 10/20/16 01:00 68 48 110/43 (66) 98 10/20/16 00:01 36.4 68 18 76/34 (48) 98 Room Air 10/19/16 23:59 98 Room Air 10/19/16 23:35 67 20 76/28 (47) 96 10/19/16 23:15 68 23 96 10/19/16 23:01 69 21 77/29 (43) 93 10/19/16 22:12 36.8 74 20 93/43 97 Room Air 10/19/16 22:00 71 20 86/40 (55) 94 Room Air 10/19/16 20:43 78 24 104/51 100 10/19/16 20:16 104/51 10/19/16 20:15 78 25 100 10/19/16 20:13 101/60 10/19/16 20:01 73/31 10/19/16 20:00 75 31 96 10/19/16 19:55 75 22 96 10/19/16 19:50 74 23 93 10/19/16 19:46 94/32 10/19/16 19:45 73 21 99 10/19/16 19:40 73 19 95 10/19/16 19:35 71 25 97 10/19/16 19:31 78/45 10/19/16 19:30 72 24 96 10/19/16 19:25 72 19 98 10/19/16 19:20 71 26 100 10/19/16 19:16 85/45 10/19/16 19:15 71 27 97 10/19/16 19:13 74 20 100/60 96 Room Air 10/19/16 18:31 87/46 10/19/16 18:30 77 25 95 10/19/16 18:16 90/55 10/19/16 18:15 74 19 96 10/19/16 18:01 85/51 10/19/16 18:00 72 26 10/19/16 17:46 83/48 10/19/16 17:45 74 18 10/19/16 17:31 91/53 10/19/16 17:30 72 20 96 10/19/16 17:27 93/46 10/19/16 17:15 69 17 97 10/19/16 17:01 77/40 10/19/16 17:00 71 15 97 10/19/16 16:51 70 16 82/50 96 Room Air 10/19/16 16:37 71 20 70/40 100 Room Air 10/19/16 16:08 71 10/19/16 16:05 69 16 73/38 95 Room Air 10/19/16 15:35 71 16 61/34 100 Room Air 10/19/16 15:35 100 Room Air 10/19/16 15:21 36.3 106 20 66/39 94 Room Air General Appearance: WD/WN, no apparent distress Head: normocephalic, atraumatic Eyes: normal inspection, EOMI, sclerae normal ENT: normal ENT inspection, pharynx normal Neck: supple, no adenopathy, thyroid normal, trachea midline Respiratory/Chest: chest non-tender, lungs clear, normal breath sounds, no respiratory distress Cardiovascular: regular rate, rhythm, no gallop, no murmur Abdomen/GI: normal bowel sounds, non tender, soft, no organomegaly, + pertinent finding ( ostomy site clean) Back: normal inspection, no CVA tenderness Extremities/Musculoskelatal: no calf tenderness, non-tender Neurologic/Psych: alert, normal mood/affect, oriented x 3 Skin: normal color, warm/dry, no rash, + pertinent finding ( abdominal wound pink and granulating) Lymphatic: no adenopathy Laboratory Results Date/Time Source Procedure Growth Status 10/19/16 16:05 Blood Blood Culture Pending Received 10/19/16 15:45 Blood Blood Culture Pending Received 10/19/16 21:45 Nasal MRSA DNA Surveillance Screen - Final Specimen Negative for MRSA by DNA Probe Complete 10/19/16 19:00 Urine , Clean Catch Urine Culture - Final MORE THAN THREE TYPES OF ORGANISMS HI... Complete Last 24 Hours Test 10/19/16 16:13 10/19/16 18:30 10/19/16 19:00 10/19/16 21:21 Bedside Lactic Acid Venous 1.97 mmol/L White Blood Count 13.06 K/uL Red Blood Count 3.70 M/uL Hemoglobin 9.9 g/dL Hematocrit 31.6 % Mean Corpuscular Volume 85.4 fL Mean Corpuscular Hemoglobin 26.8 pg Mean Corpuscular Hemoglobin Concent 31.3 g/dl Platelet Count 301 K/uL Mean Platelet Volume 9.5 fL Neutrophils (%) (Auto) 68.4 % Lymphocytes (%) (Auto) 21.7 % Monocytes (%) (Auto) 7.1 % Eosinophils (%) (Auto) 1.7 % Basophils (%) (Auto) 0.4 % Neutrophils # (Auto) 8.93 K/uL Lymphocytes # (Auto) 2.84 K/uL Monocytes # (Auto) 0.93 K/uL Eosinophils # (Auto) 0.22 K/uL Basophils # (Auto) 0.05 K/uL RDW Standard Deviation 48.3 fL RDW Coefficient of Variation 15.3 % Immature Granulocyte % (Auto) 0.7 % Immature Granulocyte # (Auto) 0.09 K/uL Prothrombin Time 10.7 SECONDS Prothromb Time International Ratio 1.0 Activated Partial Thromboplast Time 26.0 SECONDS Partial Thromboplastin Ratio 1.0 Sodium Level 134 mmol/L Potassium Level 3.0 mmol/L Chloride Level 101 mmol/L Carbon Dioxide Level 20 mmol/L Anion Gap 13.0 mmol/L Blood Urea Nitrogen 40 mg/dl Creatinine 2.90 mg/dl Est Creatinine Clear Calc Drug Dose 16.7 ml/min Estimated GFR () 18.2 Estimated GFR (Non- 15.7 BUN/Creatinine Ratio 13.8 Random Glucose 76 mg/dl Calcium Level 8.2 mg/dl Total Bilirubin 0.3 mg/dl Aspartate Amino Transf (AST/SGOT) 13 U/L Alanine Aminotransferase (ALT/SGPT) 16 U/L Alkaline Phosphatase 40 U/L Total Creatine Kinase 39 U/L Creatine Kinase MB 0.7 ng/ml Creatine Kinase MB Ratio 1.8 Troponin I < 0.015 ng/ml Total Protein 5.9 gm/dl Albumin 2.5 gm/dl Globulin 3.4 gm/dl Albumin/Globulin Ratio 0.7 Urine Color YELLOW Urine Appearance CLOUDY Urine pH 5.0 Urine Specific [place] 1.015 Urine Protein NEG Urine Glucose (UA) NEG Urine Ketones NEG Urine Occult Blood TRACE Urine Nitrite NEG Urine Bilirubin NEG Urine Urobilinogen NEG Urine Leukocyte Esterase LARGE Urine WBC (Auto) 10-30 /hpf Urine RBC (Auto) 0-4 /hpf Urine Hyaline Casts (Auto) 10-30 /lpf Urine Epithelial Cells (Auto) >30 /lpf Urine Bacteria (Auto) NEG Urine Renal Epithelial Cells 0-5 /lpf Urine Crystals CALCIUM OXALATE Bedside Glucose 92 mg/dl Test 10/20/16 01:05 10/20/16 05:41 10/20/16 05:45 Hemoglobin 9.9 g/dL 9.8 g/dL Hematocrit 31.3 % 31.1 % Sodium Level 138 mmol/L 140 mmol/L Potassium Level 3.4 mmol/L 3.6 mmol/L Chloride Level 109 mmol/L 114 mmol/L Carbon Dioxide Level 19 mmol/L 19 mmol/L Anion Gap 10.0 mmol/L 7.0 mmol/L Blood Urea Nitrogen 34 mg/dl 29 mg/dl Creatinine 2.10 mg/dl 1.60 mg/dl Est Creatinine Clear Calc Drug Dose 22.9 ml/min 30.6 ml/min Estimated GFR () 27.0 37.4 Estimated GFR (Non- 23.3 32.3 BUN/Creatinine Ratio 16.4 18.3 Random Glucose 79 mg/dl 81 mg/dl Calcium Level 7.8 mg/dl 7.2 mg/dl Magnesium Level 1.7 mg/dl 1.8 mg/dl Total Creatine Kinase 45 U/L Procalcitonin 0.10 ng/ml White Blood Count 9.42 K/uL Red Blood Count 3.63 M/uL Mean Corpuscular Volume 85.7 fL Mean Corpuscular Hemoglobin 27.0 pg Mean Corpuscular Hemoglobin Concent 31.5 g/dl RDW Standard Deviation 48.7 fL RDW Coefficient of Variation 15.3 % Platelet Count 265 K/uL Mean Platelet Volume 9.1 fL Estimated Average Glucose 111 mg/dl Hemoglobin A1c 5.5 % Total Bilirubin 0.2 mg/dl Aspartate Amino Transf (AST/SGOT) 16 U/L Alanine Aminotransferase (ALT/SGPT) 18 U/L Alkaline Phosphatase 39 U/L Total Protein 5.2 gm/dl Albumin 2.1 gm/dl Globulin 3.1 gm/dl Albumin/Globulin Ratio 0.7 Bedside Glucose 87 mg/dl CHEST ONE VIEW PORTABLE HISTORY: 71 years-old Female status post line placement COMPARISON: Portable chest radiograph 10/19/2016 TECHNIQUE: Portable upright AP view of the chest FINDINGS: There has been interval placement of a left internal jugular central venous catheter with distal tip terminating to the right of midline in the expected region of the left brachiocephalic SVC confluence. No postprocedural pneumothorax is identified. Cardiac silhouette is within normal limits. There is atherosclerosis of the aorta. Lung ruffin are clear without overt pulmonary edema, focal airspace consolidations or pleural effusion. The bones appear grossly intact with moderate degenerative changes about the shoulders. The upper abdominal structures are within normal limits. IMPRESSION: 1. Status post placement of a left internal jugular central venous catheter with distal tip terminating to the right of midline, within the expected region of the left brachiocephalic SVC confluence. No postprocedural pneumothorax. 2. No acute cardiopulmonary process. Assessment & Plan 71-year-old female with recently diagnosed colon cancer status post perforation , now presents with hypotension associated with elevated output from her ostomy. Patient appears more likely to have significant dehydration rather than sepsis, and if blood cultures remain negative after today, and no other source of infection identified, would give consideration to discontinuation of antibiotic therapy. Will discuss with all involved.
--- NOTE | 2016-10-20 16:59 | Critical Care Consultation ---
Critical Care Consultation Date of Consultation: Oct 20, 2016. Attending Physician: Marco A Valente MD Reason for Consultation: Hypotension History of Present Illness This is a 71 year old female with h/o ileostomy for 2 month was sent to ED last night for nausea, vomiting, decreased urine output, weakness. Initially hypotensive in ED, responded to iv fluids, feeling much better. Denies fever or chills. She had a partial colectomy in July 2016 for colon perforation, found adenocarcinoma, required wound VAC post-op, which she still has. She feels much better now, her symptoms essentially resolved Past Medical/Surgical History Colon cancer, s/p partial colectomy and ileostomy July 2016 CKD DM-2 HTN COPD Hypothyroidism Depression Family History Colon cancer SISTER SISTER Heart disease MOTHER Hypertension FATHER MOTHER Social History Smoking Status: Former Smoker Alcohol Use: occasionally Drug Use: none Marital Status: single Occupation Status: retired Allergies Coded Allergies: No Known Allergies (Unverified , 10/19/16) Home Medications Scheduled Acetazolamide (Acetazolamide), 250 MG PO TID Albuterol Sulfate (Proair Respiclick), 2 PUFF INH QID Alendronate Sodium (Fosamax), 70 MG PO WK Ascorbic Acid (Vitamin C), 500 MG PO HS Calcitriol (Rocaltrol Cap), 0.25 MCG PO MWF Calcium Citrate-Vitamin D (Citracal + D3 Maximum), 1 TAB PO DAILY Cetirizine Hcl (Zyrtec), 5 MG PO DAILY Fluticasone Propionate (Nasal) (Flonase Allergy Relief), 2 SPRAYS MARI DAILY Levothyroxine Sodium (Levothyroxine Sodium), 88 MCG PO DAILY Lisinopril (Zestril), 2.5 MG PO DAILY Losartan Potassium (Losartan Potassium), 25 MG PO DAILY Metformin Hcl (Glucophage), 500 MG PO BID Multivitamin (Multivitamin), 1 TAB PO QAM Pravastatin (Pravachol ), 20 MG PO DAILY Sertraline (Zoloft), 50 MG PO HS Umeclidinium-Vilanterol (Anoro Ellipta 62.5-25 Mcg/INH), 1 PUFF INH DAILY Scheduled PRN Aluminum Hydroxide-Mag Trisil (Gaviscon), 2 TABS PO QID PRN for GI Upset Current Inpatient Medications Current Inpatient Medications Medications (Trade) Dose Ordered Sig/[place] Route Start Time Stop Time Status Last Admin Dose Admin Heparin Sodium (Porcine) (Heparin Sq 5000 Unit/0.5ml) 5,000 unit Q12 SQ 10/19/16 21:00 11/18/16 20:59 10/20/16 09:09 5,000 UNIT Pantoprazole Sodium (Protonix Tab) 40 mg DAILY PO 10/20/16 09:00 11/19/16 08:59 10/20/16 09:05 40 MG Cetirizine HCl (zyrTEC TAB) 5 mg DAILY PO 10/20/16 09:00 11/19/16 08:59 10/20/16 09:04 5 MG Fluticasone Propionate (Flonase Nasal [place]) 2 sprays DAILY MARI 10/20/16 09:00 11/19/16 08:59 10/20/16 09:05 2 SPRAYS Levothyroxine Sodium (Synthroid Tab) 88 mcg DAILYBB PO 10/20/16 06:00 11/19/16 05:59 10/20/16 05:43 88 MCG Sertraline HCl (Zoloft Tab) 50 mg HS PO 10/20/16 21:00 11/19/16 20:59 Albuterol (Ventolin Hfa Inhaler) 2 puffs QID INH 10/20/16 09:00 11/19/16 08:59 10/20/16 13:06 2 PUFFS Sodium Chloride 500 ml @ 999 mls/hr Q31M PRN IV 10/19/16 21:15 10/20/16 04:06 999 MLS/HR Insulin Aspart (novoLOG ASPART) SLIDING SCALE G... ACHS SC 10/20/16 07:00 11/19/16 06:59 Glucose (Glucose 40% Gel) 15-30 GRAMS 15 GRAMS... UD PRN PO 10/19/16 21:45 11/18/16 21:44 Glucose (Glucose Chew Tab) 4-8 Tablets 4 Tabl... UD PRN PO 10/19/16 21:45 11/18/16 21:44 Dextrose (Dextrose 50% 50ML Syringe) 25-50ML OF 50% DW IV FOR... UD PRN IV 10/19/16 21:45 11/18/16 21:44 Glucagon (Glucagon Inj) 1 mg UD PRN SQ 10/19/16 21:45 11/18/16 21:44 Miscellaneous Information (Order Awaiting Action) 1 ea QS N/A 10/20/16 00:00 11/19/16 00:00 Piperacillin Sod/ Tazobactam Sod (Consult) 1 ea UD PRN N/A 10/19/16 23:00 10/29/16 22:59 Heparin Sodium (Porcine) (Heparin 10 Unit/ ml 5 ml Flush) 5 ml PRN PRN FLUSH 10/20/16 00:30 11/19/16 00:29 Parenteral Electrolyte Solution 1,000 ml @ 100 mls/hr Q10H IV 10/20/16 08:15 11/19/16 08:14 10/20/16 09:04 100 MLS/HR Daptomycin 400 mg/ Sodium Chloride 58 ml @ 100 mls/hr DAILY@1900 IV 10/20/16 19:00 10/21/16 23:59 Piperacillin Sod/ Tazobactam Sod 3.375 gm/Dextrose 115 ml @ 28.75 mls/ hr Q8H IV 10/20/16 12:00 10/21/16 23:59 10/20/16 12:43 28.75 MLS/HR Daptomycin (Consult) 1 ea UD PRN N/A 10/20/16 11:30 11/19/16 11:29 Review of Systems Constitutional: + weakness, No fever, No chills Respiratory: No cough, No sputum Cardiovascular: No chest pain, No orthopnea, No edema Abdomen: + nausea, + vomiting, No pain Genitourinary - Female: No dysuria Neurologic: No memory loss, No paralysis Endocrine: + fatigue, + excessive thirst Integumentary: + problem reported (abdominal wound) Physical Exam Date Time Temp Pulse Resp B/P (MAP) Pulse Ox O2 Delivery O2 Flow Rate FiO2 10/20/16 14:19 76 19 105/95 (98) 99 Room Air 10/20/16 13:04 70 18 94/43 (60) 99 Room Air 10/20/16 12:03 36.9 77 20 106/83 (91) 96 10/20/16 12:00 Room Air 10/20/16 11:02 72 18 98/81 (87) 97 10/20/16 10:01 68 18 117/53 (74) 95 Room Air 10/20/16 09:02 69 24 127/54 (78) 97 Room Air 10/20/16 08:01 36.7 66 25 97/42 (60) 96 Room Air 10/20/16 08:00 Room Air 10/20/16 08:00 Room Air 10/20/16 07:30 68 19 97/46 (63) 97 Room Air 10/20/16 06:00 63 18 91/40 (57) 95 Room Air 10/20/16 05:00 67 20 93/40 94 10/20/16 04:00 36.4 67 20 80/38 (52) 94 Room Air 10/20/16 04:00 94 Room Air 10/20/16 03:00 69 20 100/53 95 10/20/16 02:00 67 18 72/35 (47) 95 Room Air 10/20/16 01:00 68 48 110/43 (66) 98 10/20/16 00:01 36.4 68 18 76/34 (48) 98 Room Air 10/19/16 23:59 98 Room Air 10/19/16 23:35 67 20 76/28 (47) 96 10/19/16 23:15 68 23 96 10/19/16 23:01 69 21 77/29 (43) 93 10/19/16 22:12 36.8 74 20 93/43 97 Room Air 10/19/16 22:00 71 20 86/40 (55) 94 Room Air 10/19/16 20:43 78 24 104/51 100 10/19/16 20:16 104/51 10/19/16 20:15 78 25 100 10/19/16 20:13 101/60 10/19/16 20:01 73/31 10/19/16 20:00 75 31 96 10/19/16 19:55 75 22 96 10/19/16 19:50 74 23 93 10/19/16 19:46 94/32 10/19/16 19:45 73 21 99 10/19/16 19:40 73 19 95 10/19/16 19:35 71 25 97 10/19/16 19:31 78/45 10/19/16 19:30 72 24 96 10/19/16 19:25 72 19 98 10/19/16 19:20 71 26 100 10/19/16 19:16 85/45 10/19/16 19:15 71 27 97 10/19/16 19:13 74 20 100/60 96 Room Air 10/19/16 18:31 87/46 10/19/16 18:30 77 25 95 10/19/16 18:16 90/55 10/19/16 18:15 74 19 96 10/19/16 18:01 85/51 10/19/16 18:00 72 26 10/19/16 17:46 83/48 10/19/16 17:45 74 18 10/19/16 17:31 91/53 10/19/16 17:30 72 20 96 10/19/16 17:27 93/46 10/19/16 17:15 69 17 97 10/19/16 17:01 77/40 10/19/16 17:00 71 15 97 10/19/16 16:51 70 16 82/50 96 Room Air General Appearance: well-appearing, no apparent distress Eyes: PERRLA Neck: trachea midline, supple Respiratory: breath sounds normal, clear to auscultation, no respiratory distress Cardiovasular: regular rate/rhythm, normal S1S2 Abdomen: non tender, other (Ileostomy RLQ, wound VAC) Upper Extremities: no edema Lower Extremities: no edema Neuro: alert, oriented x 3, normal motor exam Laboratory Results Last 24 Hours Test 10/19/16 18:30 10/19/16 19:00 10/19/16 21:21 10/20/16 01:05 White Blood Count 13.06 K/uL Red Blood Count 3.70 M/uL Hemoglobin 9.9 g/dL 9.9 g/dL Hematocrit 31.6 % 31.3 % Mean Corpuscular Volume 85.4 fL Mean Corpuscular Hemoglobin 26.8 pg Mean Corpuscular Hemoglobin Concent 31.3 g/dl Platelet Count 301 K/uL Mean Platelet Volume 9.5 fL Neutrophils (%) (Auto) 68.4 % Lymphocytes (%) (Auto) 21.7 % Monocytes (%) (Auto) 7.1 % Eosinophils (%) (Auto) 1.7 % Basophils (%) (Auto) 0.4 % Neutrophils # (Auto) 8.93 K/uL Lymphocytes # (Auto) 2.84 K/uL Monocytes # (Auto) 0.93 K/uL Eosinophils # (Auto) 0.22 K/uL Basophils # (Auto) 0.05 K/uL RDW Standard Deviation 48.3 fL RDW Coefficient of Variation 15.3 % Immature Granulocyte % (Auto) 0.7 % Immature Granulocyte # (Auto) 0.09 K/uL Prothrombin Time 10.7 SECONDS Prothromb Time International Ratio 1.0 Activated Partial Thromboplast Time 26.0 SECONDS Partial Thromboplastin Ratio 1.0 Sodium Level 134 mmol/L 138 mmol/L Potassium Level 3.0 mmol/L 3.4 mmol/L Chloride Level 101 mmol/L 109 mmol/L Carbon Dioxide Level 20 mmol/L 19 mmol/L Anion Gap 13.0 mmol/L 10.0 mmol/L Blood Urea Nitrogen 40 mg/dl 34 mg/dl Creatinine 2.90 mg/dl 2.10 mg/dl Est Creatinine Clear Calc Drug Dose 16.7 ml/min 22.9 ml/min Estimated GFR () 18.2 27.0 Estimated GFR (Non- 15.7 23.3 BUN/Creatinine Ratio 13.8 16.4 Random Glucose 76 mg/dl 79 mg/dl Calcium Level 8.2 mg/dl 7.8 mg/dl Total Bilirubin 0.3 mg/dl Aspartate Amino Transf (AST/SGOT) 13 U/L Alanine Aminotransferase (ALT/SGPT) 16 U/L Alkaline Phosphatase 40 U/L Total Creatine Kinase 39 U/L 45 U/L Creatine Kinase MB 0.7 ng/ml Creatine Kinase MB Ratio 1.8 Troponin I < 0.015 ng/ml Total Protein 5.9 gm/dl Albumin 2.5 gm/dl Globulin 3.4 gm/dl Albumin/Globulin Ratio 0.7 Urine Color YELLOW Urine Appearance CLOUDY Urine pH 5.0 Urine Specific [place] 1.015 Urine Protein NEG Urine Glucose (UA) NEG Urine Ketones NEG Urine Occult Blood TRACE Urine Nitrite NEG Urine Bilirubin NEG Urine Urobilinogen NEG Urine Leukocyte Esterase LARGE Urine WBC (Auto) 10-30 /hpf Urine RBC (Auto) 0-4 /hpf Urine Hyaline Casts (Auto) 10-30 /lpf Urine Epithelial Cells (Auto) >30 /lpf Urine Bacteria (Auto) NEG Urine Renal Epithelial Cells 0-5 /lpf Urine Crystals CALCIUM OXALATE Bedside Glucose 92 mg/dl Magnesium Level 1.7 mg/dl Procalcitonin 0.10 ng/ml Test 10/20/16 05:41 10/20/16 05:45 White Blood Count 9.42 K/uL Red Blood Count 3.63 M/uL Hemoglobin 9.8 g/dL Hematocrit 31.1 % Mean Corpuscular Volume 85.7 fL Mean Corpuscular Hemoglobin 27.0 pg Mean Corpuscular Hemoglobin Concent 31.5 g/dl RDW Standard Deviation 48.7 fL RDW Coefficient of Variation 15.3 % Platelet Count 265 K/uL Mean Platelet Volume 9.1 fL Sodium Level 140 mmol/L Potassium Level 3.6 mmol/L Chloride Level 114 mmol/L Carbon Dioxide Level 19 mmol/L Anion Gap 7.0 mmol/L Blood Urea Nitrogen 29 mg/dl Creatinine 1.60 mg/dl Est Creatinine Clear Calc Drug Dose 30.6 ml/min Estimated GFR () 37.4 Estimated GFR (Non- 32.3 BUN/Creatinine Ratio 18.3 Random Glucose 81 mg/dl Estimated Average Glucose 111 mg/dl Hemoglobin A1c 5.5 % Calcium Level 7.2 mg/dl Magnesium Level 1.8 mg/dl Total Bilirubin 0.2 mg/dl Aspartate Amino Transf (AST/SGOT) 16 U/L Alanine Aminotransferase (ALT/SGPT) 18 U/L Alkaline Phosphatase 39 U/L Total Protein 5.2 gm/dl Albumin 2.1 gm/dl Globulin 3.1 gm/dl Albumin/Globulin Ratio 0.7 Bedside Glucose 87 mg/dl Diagnostic Results CXR: 1. Status post placement of a left internal jugular central venous catheter with distal tip terminating to the right of midline, within the expected region of the left brachiocephalic SVC confluence. No postprocedural pneumothorax. 2. No acute cardiopulmonary process. Assessment & Plan 71 year old female with recent colon cancer resection, admitted for nausea, vomiting, dizziness, transient hypotension, most likely secondary to dehydration secondary to increased ostomy output. Problems: Hypotension - resolved Dehydration Doubt sepsis CKD Colon cancer, s/p partial colectomy and ileostomy July 2016 COPD DM2 Hypothyroidism Depression Plan: Responded very well to fluid resuscitation Continue maintenance fluids ID evaluation noted, if blood cultures remain negative, will stop Abx Mobilize patient Wound care Sister to bring the [place] Insulin sliding scale Critical care time spent 25 minutes May be transferred out of the ICU today
[2016-10-20] MEDS ORDERED: DAPTOmycin IV 400 MG in SODIUM CHLORIDE 0.9% 50ML 50 ML IV SCH (19:00)
[2016-10-20] MEDS: SERTRALINE HCL 50 MG TAB PO SCH (19:41)
[2016-10-21 03:07] VITALS: BP 94/57; PULSE 67; TEMP 36.7; O2SAT 96
[2016-10-21] MEDS: PIPERACILL/TAZOBAC IV 3.375 GM in DEXTROSE 5% 100ML 100 ML IV SCH ×2 (03:21→13:08)
[2016-10-21] MEDS: LEVOTHYROXINE 88 MCG TAB PO SCH (05:50)
[2016-10-21] MEDS: INSULIN ASPART 100 UNITS/ML 3 ML PEN SC SCH ×4 (07:00→21:00)
[2016-10-21 07:16] VITALS: BP 97/61; PULSE 70; TEMP 37; O2SAT 98
[2016-10-21] MEDS: NORMOSOL R 1,000 ML IV SCH (08:39)
[2016-10-21] MEDS: PANTOprazole SOD 40 MG TAB PO SCH (08:40)
[2016-10-21] MEDS: ALBUTEROL HFA 8 GM INHALER INH SCH ×4 (08:40→20:59)
[2016-10-21] MEDS: UMECLIDINIUM-VILANTEROL (ANORO) INH SCH (08:40)
[2016-10-21] MEDS: FLUTICASONE PROPIONATE NA SPR 16 GM BTL NAE SCH (08:40)
[2016-10-21] MEDS: CETIRIZINE HCL 10 MG TAB PO SCH (08:41)
[2016-10-21] MEDS: HEPARIN SOD 5000 UNIT/0.5 ML CARP SQ SCH ×2 (08:47→21:03)
[2016-10-21] MEDS ORDERED: UMECLIDINIUM-VILANTEROL (ANORO) INH SCH (09:00)
[2016-10-21 10:55] LABS: BASO % 0.5 %; BASO ABS # 0.05 K/uL (0-0.2); COMPLETE YES; EOS % 1.8 %; HEMATOCRIT 31.5 % (37-47); IG% 0.4 %; LYMPH % 15.5 %; MEAN CELL VOLUME 83.3 fL (80-100); MEAN CORPUSCULAR HGB CONC 32.4 g/dl (32-36); MEAN PLATELET VOLUME 9.8 fL (7.4-10.4); MONO % 7.4 %; NEUT % 74.4 %; PLATELET COUNT 302 K/uL (130-400); RED BLOOD COUNT 3.78 M/uL (4.2-5.4); WHITE BLOOD COUNT 10.94 K/uL (4.8-10.8)
[2016-10-21 11:24] LABS: BUN/CREATININE RATIO 18.3 (10-20); CALCIUM 7.9 mg/dl (8.5-10.1); CREATININE 0.93 mg/dl (0.60-1.20); MAGNESIUM 1.9 mg/dl (1.8-2.4); POTASSIUM 3.6 mmol/L (3.5-5.1)
[2016-10-21 11:41] VITALS: BP 109/66; PULSE 72; TEMP 36.6; O2SAT 99
[2016-10-21 15:12] VITALS: BP 102/62; PULSE 71; TEMP 37; O2SAT 96
--- NOTE | 2016-10-21 16:54 | Progress Note ---
Medicine Progress Note Date & Time of Visit: Oct 21, 2016 at 16:49. Subjective seen resting in bed, comfortable states she feels better overall denies abdominal pain ,nausea no dizziness, chest pain, dyspnea no other symptoms eating well Objective Last 8 Hrs Date Time Temp Pulse Resp B/P (MAP) Pulse Ox O2 Delivery O2 Flow Rate FiO2 10/21/16 15:12 37.0 71 18 102/62 (75) 96 Room Air 10/21/16 12:00 Room Air 10/21/16 11:41 36.6 72 18 109/66 (80) 99 Nasal Cannula Physical Exam: General- oriented x 3, not in distress, speaks in sentences with no effort Eyes-anicteric Neck- no JVD Lungs- clear breath sounds no rales/wheezes b/l Heart- regular rhythm; no murmur, normal rate Abdomen- normal bowel sounds, non distended, soft, nontender Colostomy site, Abdominal wound, Abdominal Fistula: no signs of infection Extremities- no pretibial edema, no calf tenderness; peripheral pulses intact Neuro- alert, oriented x 3; no gross focal deficits Skin- warm & dry Laboratory Results: Last 24 Hours Test 10/20/16 19:46 10/21/16 06:42 10/21/16 10:25 10/21/16 11:18 Bedside Glucose 96 mg/dl 90 mg/dl 85 mg/dl White Blood Count 10.94 K/uL Red Blood Count 3.78 M/uL Hemoglobin 10.2 g/dL Hematocrit 31.5 % Mean Corpuscular Volume 83.3 fL Mean Corpuscular Hemoglobin 27.0 pg Mean Corpuscular Hemoglobin Concent 32.4 g/dl Platelet Count 302 K/uL Mean Platelet Volume 9.8 fL Neutrophils (%) (Auto) 74.4 % Lymphocytes (%) (Auto) 15.5 % Monocytes (%) (Auto) 7.4 % Eosinophils (%) (Auto) 1.8 % Basophils (%) (Auto) 0.5 % Neutrophils # (Auto) 8.14 K/uL Lymphocytes # (Auto) 1.70 K/uL Monocytes # (Auto) 0.81 K/uL Eosinophils # (Auto) 0.20 K/uL Basophils # (Auto) 0.05 K/uL RDW Standard Deviation 47.2 fL RDW Coefficient of Variation 15.4 % Immature Granulocyte % (Auto) 0.4 % Immature Granulocyte # (Auto) 0.04 K/uL Sodium Level 137 mmol/L Potassium Level 3.6 mmol/L Chloride Level 112 mmol/L Carbon Dioxide Level 18 mmol/L Anion Gap 7.0 mmol/L Blood Urea Nitrogen 17 mg/dl Creatinine 0.93 mg/dl Est Creatinine Clear Calc Drug Dose 52.4 ml/min Estimated GFR () 72.2 Estimated GFR (Non- 62.3 BUN/Creatinine Ratio 18.3 Random Glucose 93 mg/dl Calcium Level 7.9 mg/dl Magnesium Level 1.9 mg/dl Test 10/21/16 16:35 Bedside Glucose 94 mg/dl Assessment & Plan 71 year old female with history of Colon Cancer, s/p Resection, s/p Ileostomy, DM, HTN, CKD 3, COPD presenting with low blood pressures. HYPOTENSION secondary to VOLUME DEPLETION FROM ILEOSTOMY OUTPUT R/O SEPSIS Presented to ED with severe hypotension with systolic blood pressures in the 60s. -- given IV fluids, BP improved crea returned to baseline d/c fluids now -- Blood and urine cultures: negative given Dapto + Zosyn, d/c today appreciate ID consult ACUTE KIDNEY INJURY Serum creatinine 2.9 compared to baseline of 1.0 on 10/11/16. Acute kidney injury most likely secondary to volume depletion. -- crea back to baseline 0.9 d/c IV fluids -- hold Acetazolomide, Lisinopril, Losartan HYPOKALEMIA resolved DM TYPE 2 Hold metformin during hospital stay. ISS COLON CA During last admission in July, patient had bowel perforation secondary to underlying carcinoma. Follow-up management per General Surgery. Will follow up with Oncologist as outpatient ABDOMINAL WOUND Slow healing abdominal incision, currently being managed with WoundVac. No signs of infection Consulted Wound Care Nursing. VTE PROPHYLAXIS Moderately high risk for VTE. SQ heparin. Ambulate as able. RESUSCITATION STATUS Full Code DISPOSITION anticipate d/c home tomorrow Internal Medicine follow-up with Dr. Ghazala Whitten. Surgical follow-up with Dr. Powers. Current Inpatient Medications: Current Inpatient Medications Medications (Trade) Dose Ordered Sig/[place] Route Start Time Stop Time Status Last Admin Dose Admin Heparin Sodium (Porcine) (Heparin Sq 5000 Unit/0.5ml) 5,000 unit Q12 SQ 10/19/16 21:00 11/18/16 20:59 10/21/16 08:47 5,000 UNIT Pantoprazole Sodium (Protonix Tab) 40 mg DAILY PO 10/20/16 09:00 11/19/16 08:59 10/21/16 08:40 40 MG Cetirizine HCl (zyrTEC TAB) 5 mg DAILY PO 10/20/16 09:00 11/19/16 08:59 10/21/16 08:41 5 MG Fluticasone Propionate (Flonase Nasal [place]) 2 sprays DAILY MARI 10/20/16 09:00 11/19/16 08:59 10/21/16 08:40 2 SPRAYS Levothyroxine Sodium (Synthroid Tab) 88 mcg DAILYBB PO 10/20/16 06:00 11/19/16 05:59 10/21/16 05:50 88 MCG Sertraline HCl (Zoloft Tab) 50 mg HS PO 10/20/16 21:00 11/19/16 20:59 10/20/16 19:41 50 MG Albuterol (Ventolin Hfa Inhaler) 2 puffs QID INH 10/20/16 09:00 11/19/16 08:59 10/21/16 13:08 2 PUFFS Sodium Chloride 500 ml @ 999 mls/hr Q31M PRN IV 10/19/16 21:15 10/20/16 04:06 999 MLS/HR Insulin Aspart (novoLOG ASPART) SLIDING SCALE G... ACHS SC 10/20/16 07:00 11/19/16 06:59 Glucose (Glucose 40% Gel) 15-30 GRAMS 15 GRAMS... UD PRN PO 10/19/16 21:45 11/18/16 21:44 Glucose (Glucose Chew Tab) 4-8 Tablets 4 Tabl... UD PRN PO 10/19/16 21:45 11/18/16 21:44 Dextrose (Dextrose 50% 50ML Syringe) 25-50ML OF 50% DW IV FOR... UD PRN IV 10/19/16 21:45 11/18/16 21:44 Glucagon (Glucagon Inj) 1 mg UD PRN SQ 10/19/16 21:45 11/18/16 21:44 Heparin Sodium (Porcine) (Heparin 10 Unit/ ml 5 ml Flush) 5 ml PRN PRN FLUSH 10/20/16 00:30 11/19/16 00:29
[2016-10-21] MEDS ORDERED: DAPTOmycin IV 400 MG in SODIUM CHLORIDE 0.9% 50ML 50 ML IV SCH (19:00)
[2016-10-21 19:12] VITALS: BP 113/72; PULSE 73; TEMP 36.9; O2SAT 95
[2016-10-21] MEDS: SERTRALINE HCL 50 MG TAB PO SCH (20:59)
[2016-10-21 22:58] VITALS: BP 121/69; PULSE 73; TEMP 36.7; O2SAT 96
[2016-10-22 02:31] VITALS: BP 118/67; PULSE 75; TEMP 36.6; O2SAT 95
[2016-10-22] MEDS: LEVOTHYROXINE 88 MCG TAB PO SCH (04:26)
[2016-10-22 05:01] LABS: BASO % 0.4 %; BASO ABS # 0.04 K/uL (0-0.2); COMPLETE YES; EOS % 2.7 %; HEMATOCRIT 28.2 % (37-47); IG% 0.4 %; LYMPH % 19.6 %; LYMPH ABS # 2.03 K/uL (1.2-3.4); MEAN CELL VOLUME 83.7 fL (80-100); MEAN CORPUSCULAR HGB CONC 32.3 g/dl (32-36); MEAN PLATELET VOLUME 9.9 fL (7.4-10.4); MONO % 7.8 %; NEUT % 69.1 %; PLATELET COUNT 299 K/uL (130-400); RED BLOOD COUNT 3.37 M/uL (4.2-5.4); WHITE BLOOD COUNT 10.36 K/uL (4.8-10.8)
[2016-10-22 05:20] LABS: BUN/CREATININE RATIO 16.9 (10-20); CALCIUM 7.6 mg/dl (8.5-10.1); CREATININE 0.74 mg/dl (0.60-1.20); MAGNESIUM 1.5 mg/dl (1.8-2.4); POTASSIUM 3.3 mmol/L (3.5-5.1)
[2016-10-22 07:18] VITALS: BP 122/76; PULSE 72; TEMP 36.6; O2SAT 95
[2016-10-22] MEDS: ALBUTEROL HFA 8 GM INHALER INH SCH ×4 (08:26→20:08)
[2016-10-22] MEDS: INSULIN ASPART 100 UNITS/ML 3 ML PEN SC SCH ×4 (08:26→20:09)
[2016-10-22] MEDS: UMECLIDINIUM-VILANTEROL (ANORO) INH SCH (08:26)
[2016-10-22] MEDS: POTASSIUM CHLORIDE 20 MEQ TABCR PO SCH (08:27)
[2016-10-22] MEDS: FLUTICASONE PROPIONATE NA SPR 16 GM BTL NAE SCH (08:27)
[2016-10-22] MEDS: PANTOprazole SOD 40 MG TAB PO SCH (08:27)
[2016-10-22] MEDS: MAGNESIUM OXIDE 400 MG TAB PO SCH ×2 (08:27→20:08)
[2016-10-22] MEDS: CETIRIZINE HCL 10 MG TAB PO SCH (08:28)
[2016-10-22] MEDS: HEPARIN SOD 5000 UNIT/0.5 ML CARP SQ SCH ×2 (08:29→20:12)
[2016-10-22 11:32] VITALS: BP 107/68; PULSE 72; TEMP 36.6; O2SAT 97
[2016-10-22 15:49] VITALS: BP 114/60; PULSE 72; TEMP 36.9; O2SAT 98
--- NOTE | 2016-10-22 16:01 | Progress Note ---
Medicine Progress Note Date & Time of Visit: Oct 22, 2016 at 15:55. Subjective patient seen resting in bed, comfortable in good spirits reports dysuria and frequency otherwise, states she feels fine overall denies chest pain, dyspnea, palpitations, dizziness no other symptoms Objective Last 8 Hrs Date Time Temp Pulse Resp B/P (MAP) Pulse Ox O2 Delivery O2 Flow Rate FiO2 10/22/16 15:49 36.9 72 18 114/60 (78) 98 Room Air 10/22/16 12:00 Room Air 10/22/16 11:32 36.6 72 17 107/68 (81) 97 Room Air 10/22/16 08:00 Room Air Physical Exam: General- oriented x 3, not in distress, speaks in sentences with no effort Eyes-anicteric Neck- no JVD Lungs- no rales/wheezes bilaterally Heart- regular rhythm; no murmur, normal rate Abdomen- normal bowel sounds, non distended, soft, nontender Colostomy site, Abdominal wound, Abdominal Fistula: no signs of infection Extremities- no pretibial edema, no calf tenderness; peripheral pulses intact Neuro- alert, oriented x 3; no gross focal deficits Skin- warm & dry Laboratory Results: Last 24 Hours Test 10/21/16 16:35 10/21/16 20:22 10/22/16 04:20 10/22/16 06:41 Bedside Glucose 94 mg/dl 112 mg/dl 101 mg/dl White Blood Count 10.36 K/uL Red Blood Count 3.37 M/uL Hemoglobin 9.1 g/dL Hematocrit 28.2 % Mean Corpuscular Volume 83.7 fL Mean Corpuscular Hemoglobin 27.0 pg Mean Corpuscular Hemoglobin Concent 32.3 g/dl Platelet Count 299 K/uL Mean Platelet Volume 9.9 fL Neutrophils (%) (Auto) 69.1 % Lymphocytes (%) (Auto) 19.6 % Monocytes (%) (Auto) 7.8 % Eosinophils (%) (Auto) 2.7 % Basophils (%) (Auto) 0.4 % Neutrophils # (Auto) 7.16 K/uL Lymphocytes # (Auto) 2.03 K/uL Monocytes # (Auto) 0.81 K/uL Eosinophils # (Auto) 0.28 K/uL Basophils # (Auto) 0.04 K/uL RDW Standard Deviation 47.4 fL RDW Coefficient of Variation 15.4 % Immature Granulocyte % (Auto) 0.4 % Immature Granulocyte # (Auto) 0.04 K/uL Sodium Level 141 mmol/L Potassium Level 3.3 mmol/L Chloride Level 115 mmol/L Carbon Dioxide Level 21 mmol/L Anion Gap 5.0 mmol/L Blood Urea Nitrogen 12 mg/dl Creatinine 0.74 mg/dl Est Creatinine Clear Calc Drug Dose 65.9 ml/min Estimated GFR () 95.1 Estimated GFR (Non- 82.1 BUN/Creatinine Ratio 16.9 Random Glucose 86 mg/dl Calcium Level 7.6 mg/dl Magnesium Level 1.5 mg/dl Test 10/22/16 11:15 10/22/16 15:52 Bedside Glucose 87 mg/dl Assessment & Plan 71 year old female with history of Colon Cancer, s/p Resection, s/p Ileostomy, DM, HTN, CKD 3, COPD presenting with low blood pressures. HYPOTENSION secondary to VOLUME DEPLETION FROM ILEOSTOMY OUTPUT R/O SEPSIS Presented to ED with severe hypotension with systolic blood pressures in the 60s. -- given IV fluids, BP improved crea returned to baseline d/c fluids now -- Blood and urine cultures: negative given Dapto + Zosyn, d/c BP stable, remains afebrile, no leukocytosis but has UTI symptoms repeat UA/ Urine culture appreciate ID consult ACUTE KIDNEY INJURY Serum creatinine 2.9 compared to baseline of 1.0 on 10/11/16. Acute kidney injury most likely secondary to volume depletion. -- crea back to baseline 0.9 d/c IV fluids -- hold Acetazolomide, Lisinopril, Losartan BP stable HYPO K AND MG -- replaced with PO K and Mg -- recheck DM TYPE 2 Hold metformin during hospital stay. ISS COLON CA During last admission in July, patient had bowel perforation secondary to underlying carcinoma. Follow-up management per General Surgery. Will follow up with Oncologist as outpatient ABDOMINAL WOUND Slow healing abdominal incision, currently being managed with WoundVac. No signs of infection Consulted Wound Care Nursing. VTE PROPHYLAXIS Moderately high risk for VTE. SQ heparin. Ambulate as able. RESUSCITATION STATUS Full Code DISPOSITION anticipate d/c home tomorrow Internal Medicine follow-up with Dr. Ghazala Whitten. Surgical follow-up with Dr. Powers. Current Inpatient Medications: Current Inpatient Medications Medications (Trade) Dose Ordered Sig/[place] Route Start Time Stop Time Status Last Admin Dose Admin Heparin Sodium (Porcine) (Heparin Sq 5000 Unit/0.5ml) 5,000 unit Q12 SQ 10/19/16 21:00 11/18/16 20:59 10/22/16 08:29 5,000 UNIT Pantoprazole Sodium (Protonix Tab) 40 mg DAILY PO 10/20/16 09:00 11/19/16 08:59 10/22/16 08:27 40 MG Cetirizine HCl (zyrTEC TAB) 5 mg DAILY PO 10/20/16 09:00 11/19/16 08:59 10/22/16 08:28 5 MG Fluticasone Propionate (Flonase Nasal [place]) 2 sprays DAILY MARI 10/20/16 09:00 11/19/16 08:59 10/22/16 08:27 2 SPRAYS Levothyroxine Sodium (Synthroid Tab) 88 mcg DAILYBB PO 10/20/16 06:00 11/19/16 05:59 10/22/16 04:26 88 MCG Sertraline HCl (Zoloft Tab) 50 mg HS PO 10/20/16 21:00 11/19/16 20:59 10/21/16 20:59 50 MG Albuterol (Ventolin Hfa Inhaler) 2 puffs QID INH 10/20/16 09:00 11/19/16 08:59 10/22/16 11:51 2 PUFFS Sodium Chloride 500 ml @ 999 mls/hr Q31M PRN IV 10/19/16 21:15 10/20/16 04:06 999 MLS/HR Insulin Aspart (novoLOG ASPART) SLIDING SCALE G... ACHS SC 10/20/16 07:00 11/19/16 06:59 Glucose (Glucose 40% Gel) 15-30 GRAMS 15 GRAMS... UD PRN PO 10/19/16 21:45 11/18/16 21:44 Glucose (Glucose Chew Tab) 4-8 Tablets 4 Tabl... UD PRN PO 10/19/16 21:45 11/18/16 21:44 Dextrose (Dextrose 50% 50ML Syringe) 25-50ML OF 50% DW IV FOR... UD PRN IV 10/19/16 21:45 11/18/16 21:44 Glucagon (Glucagon Inj) 1 mg UD PRN SQ 10/19/16 21:45 11/18/16 21:44 Heparin Sodium (Porcine) (Heparin 10 Unit/ ml 5 ml Flush) 5 ml PRN PRN FLUSH 10/20/16 00:30 11/19/16 00:29 10/22/16 04:26 5 ML Potassium Chloride (Klor-Con Tab) 40 meq QAM PO 10/22/16 09:00 11/21/16 08:59 10/22/16 08:27 40 MEQ Magnesium Oxide (Mag-Ox Tab) 400 mg BID PO 10/22/16 09:00 11/21/16 08:59 10/22/16 08:27 400 MG
[2016-10-22 16:40] LABS: URINE APPEARANCE CLEAR (CLEAR); URINE BILIRUBIN NEG (NEG); URINE COLOR YELLOW; URINE NITRITE NEG (NEG); URINE PH 6.5 (4.5-7.5); URINE SPECIFIC GRAVITY 1.011 (1.000-1.030); UROBILINOGEN NEG (NEG)
[2016-10-22 16:48] LABS: MANUAL MICROSCOPIC REQUIRED? NO; REVIEW REQ? NO
[2016-10-22 17:18] LABS: MAGNESIUM 1.4 mg/dl (1.8-2.4); POTASSIUM 4.1 mmol/L (3.5-5.1)
[2016-10-22] MEDS ORDERED: MAGNESIUM SULFATE 1GM / D5W 1 GM in PREMIXED IN D5W 100 ML IV ONE (17:45)
[2016-10-22] MEDS: NITROFURANTOIN MONOHYDRATE 100 MG CAP PO SCH (19:00)
[2016-10-22 19:05] VITALS: BP 107/67; PULSE 69; TEMP 36.9; O2SAT 100
[2016-10-22] MEDS: SERTRALINE HCL 50 MG TAB PO SCH (20:08)
[2016-10-22 23:00] VITALS: BP 125/78; PULSE 67; TEMP 37.1; O2SAT 96
[2016-10-23 04:20] VITALS: BP 125/71; PULSE 74; TEMP 37; O2SAT 95
[2016-10-23] MEDS: LEVOTHYROXINE 88 MCG TAB PO SCH (04:57)
[2016-10-23 05:44] LABS: BASO % 0.6 %; BASO ABS # 0.07 K/uL (0-0.2); COMPLETE YES; EOS % 2.6 %; HEMATOCRIT 30.3 % (37-47); IG% 0.7 %; LYMPH % 21.8 %; LYMPH ABS # 2.39 K/uL (1.2-3.4); MEAN CELL VOLUME 83.2 fL (80-100); MEAN CORPUSCULAR HEMOGLOBIN 26.9 pg (25-34); MEAN CORPUSCULAR HGB CONC 32.3 g/dl (32-36); MEAN PLATELET VOLUME 9.7 fL (7.4-10.4); MONO % 7.1 %; NEUT % 67.2 %; PLATELET COUNT 315 K/uL (130-400); RED BLOOD COUNT 3.64 M/uL (4.2-5.4); WHITE BLOOD COUNT 10.96 K/uL (4.8-10.8)
[2016-10-23 06:15] LABS: BUN/CREATININE RATIO 16.8 (10-20); CALCIUM 8.2 mg/dl (8.5-10.1); CREATININE 0.73 mg/dl (0.60-1.20); MAGNESIUM 1.7 mg/dl (1.8-2.4); POTASSIUM 3.8 mmol/L (3.5-5.1)
[2016-10-23 06:58] VITALS: BP 136/76; PULSE 69; TEMP 36.5; O2SAT 96
[2016-10-23] MEDS: INSULIN ASPART 100 UNITS/ML 3 ML PEN SC SCH ×4 (07:00→20:46)
[2016-10-23] MEDS: NITROFURANTOIN MONOHYDRATE 100 MG CAP PO SCH ×2 (07:55→16:08)
[2016-10-23] MEDS: ALBUTEROL HFA 8 GM INHALER INH SCH ×4 (07:56→20:45)
[2016-10-23] MEDS: UMECLIDINIUM-VILANTEROL (ANORO) INH SCH (07:56)
[2016-10-23] MEDS: CETIRIZINE HCL 10 MG TAB PO SCH (07:57)
[2016-10-23] MEDS: FLUTICASONE PROPIONATE NA SPR 16 GM BTL NAE SCH (07:57)
[2016-10-23] MEDS: POTASSIUM CHLORIDE 20 MEQ TABCR PO SCH (07:57)
[2016-10-23] MEDS: MAGNESIUM OXIDE 400 MG TAB PO SCH ×2 (07:57→20:45)
[2016-10-23] MEDS: PANTOprazole SOD 40 MG TAB PO SCH (07:58)
[2016-10-23] MEDS ORDERED: MAGNESIUM SULFATE 1GM / D5W 1 GM in PREMIXED IN D5W 100 ML IV ONE (08:00)
[2016-10-23] MEDS: HEPARIN SOD 5000 UNIT/0.5 ML CARP SQ SCH ×2 (08:05→20:46)
--- NOTE | 2016-10-23 11:38 | Progress Note ---
Medicine Progress Note Date & Time of Visit: Oct 23, 2016 at 11:28. Subjective patient seen resting in bed, comfortable states she feels better much better overall denies dysuria, frequency, abdominal pain ,nausea/vomiting no other symptoms states she is ready and would like to be discharged today Objective Last 8 Hrs Date Time Temp Pulse Resp B/P (MAP) Pulse Ox O2 Delivery O2 Flow Rate FiO2 10/23/16 08:00 Room Air 10/23/16 06:58 36.5 69 17 136/76 (96) 96 Room Air 10/23/16 04:20 37.0 74 18 125/71 (89) 95 Room Air 10/23/16 04:00 Room Air Physical Exam: General- oriented x 3, not in distress, speaks in sentences with no effort Eyes-anicteric Neck- no JVD Lungs- clear breath sounds b/l Heart- regular rhythm; no murmur, normal rate Abdomen- normal bowel sounds, non distended, soft, nontender Colostomy site, Abdominal wound, Abdominal Fistula: no signs of infection Extremities- no pretibial edema, no calf tenderness; peripheral pulses intact Neuro- alert, oriented x 3; no gross focal deficits Skin- warm & dry Laboratory Results: Last 24 Hours Test 10/22/16 16:20 10/22/16 16:26 10/22/16 16:30 10/22/16 20:05 Urine Color YELLOW Urine Appearance CLEAR Urine pH 6.5 Urine Specific [place] 1.011 Urine Protein NEG Urine Glucose (UA) NEG Urine Ketones NEG Urine Occult Blood NEG Urine Nitrite NEG Urine Bilirubin NEG Urine Urobilinogen NEG Urine Leukocyte Esterase NEG Potassium Level 4.1 mmol/L Magnesium Level 1.4 mg/dl Bedside Glucose 86 mg/dl 108 mg/dl Test 10/23/16 04:50 10/23/16 06:37 White Blood Count 10.96 K/uL Red Blood Count 3.64 M/uL Hemoglobin 9.8 g/dL Hematocrit 30.3 % Mean Corpuscular Volume 83.2 fL Mean Corpuscular Hemoglobin 26.9 pg Mean Corpuscular Hemoglobin Concent 32.3 g/dl Platelet Count 315 K/uL Mean Platelet Volume 9.7 fL Neutrophils (%) (Auto) 67.2 % Lymphocytes (%) (Auto) 21.8 % Monocytes (%) (Auto) 7.1 % Eosinophils (%) (Auto) 2.6 % Basophils (%) (Auto) 0.6 % Neutrophils # (Auto) 7.36 K/uL Lymphocytes # (Auto) 2.39 K/uL Monocytes # (Auto) 0.78 K/uL Eosinophils # (Auto) 0.28 K/uL Basophils # (Auto) 0.07 K/uL RDW Standard Deviation 48.0 fL RDW Coefficient of Variation 15.6 % Immature Granulocyte % (Auto) 0.7 % Immature Granulocyte # (Auto) 0.08 K/uL Sodium Level 141 mmol/L Potassium Level 3.8 mmol/L Chloride Level 114 mmol/L Carbon Dioxide Level 20 mmol/L Anion Gap 7.0 mmol/L Blood Urea Nitrogen 12 mg/dl Creatinine 0.73 mg/dl Est Creatinine Clear Calc Drug Dose 66.6 ml/min Estimated GFR () 96.7 Estimated GFR (Non- 83.4 BUN/Creatinine Ratio 16.8 Random Glucose 88 mg/dl Calcium Level 8.2 mg/dl Magnesium Level 1.7 mg/dl Bedside Glucose 101 mg/dl Date/Time Source Procedure Growth Status 10/22/16 16:20 Urine , Clean Catch Urine Culture Pending Received Assessment & Plan 71 year old female with history of Colon Cancer, s/p Resection, s/p Ileostomy, DM, HTN, CKD 3, COPD presenting with low blood pressures. HYPOTENSION, resolved secondary to VOLUME DEPLETION FROM ILEOSTOMY OUTPUT -- Presented to ED with severe hypotension with systolic blood pressures in the 60s.' crea 2.9 -- given IV fluids, BP improved crea returned to baseline, 0.73 on discharge -- Blood and urine cultures: negative given Dapto + Zosyn, d/c BP stable, remains afebrile, no leukocytosis - Sepsis ruled out ID was consulted - developed UTI symptoms again on Hospital Day 3, but afebrile, no leukocytosis repeat UA negative repeat Urine culture: pending - started on Macrobid 100mg BID based on previous cultures, needs four more days to complete 7 days total antibiotic course follow up closely ACUTE KIDNEY INJURY Serum creatinine 2.9 compared to baseline of 1.0 on 10/11/16. Acute kidney injury most likely secondary to volume depletion. -- crea back to baseline 0.73 -- Acetazolomide, Lisinopril, Losartan was held patient remained euvolemic, BP stable -- continue to hold Acetazolomide, Lisinopril, Losartan monitor crea and BP as outpatient HYPO K AND MG -- replaced with PO K and Mg - discharge on: K 20meq po daily MgCl 64mg BID - repeat K and Mg on ff up DM TYPE 2 resume Metformin COLON CA During last admission in July, patient had bowel perforation secondary to underlying carcinoma. Follow-up management per General Surgery Dr. Powers Will follow up with Oncologist as outpatient ABDOMINAL WOUND Slow healing abdominal incision, currently being managed with Wound Vac. No signs of infection Consulted Wound Care Nursing continue to ff up with Wound Care DISPOSITION d/c home Internal Medicine follow-up with Dr. Graham on 10/26/2016 Surgical follow-up with Dr. Powers as scheduled. Current Inpatient Medications: Current Inpatient Medications Medications (Trade) Dose Ordered Sig/[place] Route Start Time Stop Time Status Last Admin Dose Admin Heparin Sodium (Porcine) (Heparin Sq 5000 Unit/0.5ml) 5,000 unit Q12 SQ 10/19/16 21:00 11/18/16 20:59 10/23/16 08:05 5,000 UNIT Pantoprazole Sodium (Protonix Tab) 40 mg DAILY PO 10/20/16 09:00 11/19/16 08:59 10/23/16 07:58 40 MG Cetirizine HCl (zyrTEC TAB) 5 mg DAILY PO 10/20/16 09:00 11/19/16 08:59 10/23/16 07:57 5 MG Fluticasone Propionate (Flonase Nasal [place]) 2 sprays DAILY MARI 10/20/16 09:00 11/19/16 08:59 10/23/16 07:57 2 SPRAYS Levothyroxine Sodium (Synthroid Tab) 88 mcg DAILYBB PO 10/20/16 06:00 11/19/16 05:59 10/23/16 04:57 88 MCG Sertraline HCl (Zoloft Tab) 50 mg HS PO 10/20/16 21:00 11/19/16 20:59 10/22/16 20:08 50 MG Albuterol (Ventolin Hfa Inhaler) 2 puffs QID INH 10/20/16 09:00 11/19/16 08:59 10/23/16 07:56 2 PUFFS Sodium Chloride 500 ml @ 999 mls/hr Q31M PRN IV 10/19/16 21:15 10/20/16 04:06 999 MLS/HR Insulin Aspart (novoLOG ASPART) SLIDING SCALE G... ACHS SC 10/20/16 07:00 11/19/16 06:59 Glucose (Glucose 40% Gel) 15-30 GRAMS 15 GRAMS... UD PRN PO 10/19/16 21:45 11/18/16 21:44 Glucose (Glucose Chew Tab) 4-8 Tablets 4 Tabl... UD PRN PO 10/19/16 21:45 11/18/16 21:44 Dextrose (Dextrose 50% 50ML Syringe) 25-50ML OF 50% DW IV FOR... UD PRN IV 10/19/16 21:45 11/18/16 21:44 Glucagon (Glucagon Inj) 1 mg UD PRN SQ 10/19/16 21:45 11/18/16 21:44 Heparin Sodium (Porcine) (Heparin 10 Unit/ ml 5 ml Flush) 5 ml PRN PRN FLUSH 10/20/16 00:30 11/19/16 00:29 10/23/16 04:49 5 ML Magnesium Oxide (Mag-Ox Tab) 400 mg BID PO 10/22/16 09:00 11/21/16 08:59 10/23/16 07:57 400 MG Nitrofurantoin Macrocrystals (Macrobid Cap) 100 mg BIDM PO 10/22/16 18:00 11/01/16 17:59 10/23/16 07:55 100 MG Magnesium Chloride (Slow-Mag Tab) 64 mg BID PO 10/23/16 21:00 11/22/16 20:59 UNV Potassium Chloride (Klor-Con Tab) 20 meq QAM PO 10/24/16 09:00 11/23/16 08:59 UNV
[2016-10-23] MEDS ORDERED: SLWMEC PO (11:41)
[2016-10-23] MEDS ORDERED: MCRK20 PO (11:41)
[2016-10-23] MEDS ORDERED: MCRB100 PO (11:41)
--- NOTE | 2016-10-23 11:47 | Discharge Instructions ---
Discharge Instructions Date of Service October 24, 2016 Admission Reason for Admission: Hypotension Discharge Discharge Diagnosis / Problem: HYPOTENSION, LIKELY SECONDARY TO VOLUME DEPLETION Discharge Goals Goal(s): Diagnostic testing, Therapeutic intervention Activity Recommendations Activity Limitations: as noted below (INCREASE ACTIVITY GRADUALLY TOLERATED) Lifting Limitations: gradually increase as tolerated Exercise/Sports Limitations: until after follow-up appointment . Instructions / Follow-Up Instructions / Follow-Up PLEASE REFER TO YOUR NEW MEDICATION LIST AND FOLLOW INSTRUCTIONS CAREFULLY. ENSURE ADEQUATE DAILY FLUID INTAKE. INCREASE FIBER IN YOUR DIET. CALL YOUR PRIMARY CARE PHYSICIAN OR RETURN TO ER IMMEDIATELY IF WITH RECURRENCE OF SYMPTOMS, INCREASING PAIN WITH URINATION, FEVER/CHILLS, ABDOMINAL PAIN, WEAKNESS, INCREASE REDNESS, PAIN, REDNESS, DISCHARGE ON THE ABDOMINAL WOUNDS. FOLLOW UP WITH DR. COWART (ASSOCIATE OF DR. VENUS COOPER) ON OCTOBER 26, 2016Sunday AT 12:45PM. FOLLOW UP WITH DR. RAMACHANDRAN SCHEDULED. Current Hospital Diet Patient's current hospital diet: Diabetes Type 2 Diet, Renal Diet Discharge Diet Recommended Diet: AHA Diet (Heart Healthy), Diabetes Type 2 Diet Pending Studies Studies pending at discharge: yes List of pending studies: REPEAT BLOOD WORK C/O PRIMARY CARE PHYSICIAN Laboratory Results Hemoglobin A1c Test 10/20/16 05:41 Range/Units Estimated Average Glucose 111 mg/dl Hemoglobin A1c 5.5 4.5-5.6 % Medical Emergencies . Who to Call and When: Medical Emergencies: If at any time you feel your situation is an emergency, please call 911 immediately. . Non-Emergent Contact Non-Emergency issues call your: Primary Care Provider, Surgeon Call Non-Emergent contact if: you have a fever, your pain is not controlled, your pain is worsening, wound has increased drainage, wound has increased redness, wound has increased pain, you have any medication questions . Past History Medical & Surgical History: (1) Acute blood loss anemia (2) Perforation of colon (3) Fungemia (4) Colon cancer (5) Peritonitis (6) Polymicrobial sepsis (7) Hypotension (8) Dehydration (9) Depression (10) DM type 2 (diabetes mellitus, type 2) (11) Hypothyroidism (12) CKD (chronic kidney disease), stage III (13) COPD, moderate (14) S/P oophorectomy . "Provider Documentation" section prepared by Marco A Valente. . VTE Core Measure Inpt VTE Proph given/why not?: Unfractionated heparin SQ
[2016-10-23 11:48] VITALS: BP 136/74; PULSE 72; TEMP 36.8; O2SAT 99
--- NOTE | 2016-10-23 11:55 | Discharge Summary ---
Discharge Summary Date of Service Oct 23, 2016. 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 Elils; Wound Care Consult Pending Studies/Follow-Up: Repeat PRP, Mg on follow up (re: low K and Mg, supplements started); Please refer to hospital course below for further details. Medication Reconciliation New Medications: Magnesium Chloride (Slow-Mag Tab) 64 Mg Tabcr 64 MG PO BID for 30 Days, #60 TABS 2 Refills Nitrofurantoin Monohyd Macrocr (Nitrofurantoin Monohydrat) 100 Mg Cap 100 MG PO BIDM for 4 Days, #8 CAP 0 Refills Potassium Chloride (Klor-Con M20) 20 Meq Tabcr 20 MEQ PO QAM for 30 Days, #30 TABS 2 Refills Continued Medications: Albuterol Sulfate (Proair Respiclick) 108 Mcg/Act Aer 2 PUFF INH QID Alendronate Sodium (Fosamax) 70 Mg Tab 70 MG PO WK, TAB Aluminum Hydroxide-Mag Trisil (Gaviscon) 1 Chw Chw 2 TABS PO QID PRN for GI Upset Ascorbic Acid (Vitamin C) 500 Mg Tab 500 MG PO HS Calcitriol (Rocaltrol Cap) 0.25 Mcg Cap 0.25 MCG PO MWF, CAP Calcium Citrate-Vitamin D (Citracal + D3 Maximum) 1 Tab Tab 1 TAB PO DAILY Cetirizine Hcl (Zyrtec) 5 Mg Tab 5 MG PO DAILY, TAB Fluticasone Propionate (Nasal) (Flonase Allergy Relief) 50 Mcg/Act Spr 2 SPRAYS MARI DAILY Levothyroxine Sodium (Levothyroxine Sodium) 88 Mcg Tab 88 MCG PO DAILY, TAB Metformin Hcl (Glucophage) 500 Mg Tab 500 MG PO BID, TAB Multivitamin (Multivitamin) Tab 1 TAB PO QAM, TAB Pravastatin (Pravachol ) 20 Mg Tab 20 MG PO DAILY, TAB with supper Sertraline (Zoloft) 50 Mg Tab 50 MG PO HS, TAB Umeclidinium-Vilanterol (Anoro Ellipta 62.5-25 Mcg/INH) 1 Aer Aer 1 PUFF INH DAILY Discontinued Medications: Acetazolamide (Acetazolamide) 250 Mg Tab 250 MG PO TID Lisinopril (Zestril) 2.5 Mg Tab 2.5 MG PO DAILY Losartan Potassium (Losartan Potassium) 25 Mg Tab 25 MG PO DAILY Admission Information HPI (per Admitting provider): 71 YO female followed by Dr. Venus Whitten. Hospitalized at [facility] 07/30/16 with perforated bowel / sepsis. Complicated ICU course. Found to have adenocarcinoma of colon at hepatic flexure. Partial colectomy with formation of ileostomy performed. She was transferred to [facility] for rehab on 08/25/16 and subsequently returned home. She has had significant output via her ileostomy. Has WoundVac with home health nursing support for abdominal wound. Weak over past few days. Had 2 episodes of nausea and vomiting. Noted decreased urine output. Seen by home health nursing earlier today. Found to be hypotensive and referred to ED for evaluation. No fever. No cough. No dysuria or hematuria. . Physical Exam (per Admitting): General Appearance: WD/WN, no apparent distress Head: normocephalic, atraumatic Eyes: normal inspection, PERRL, EOMI, sclerae normal ENT: hearing grossly normal, pharynx normal Neck: supple, no adenopathy, thyroid normal, trachea midline, + pertinent finding (left IJ catheter) Respiratory/Chest: lungs clear, no respiratory distress, no accessory muscle use Cardiovascular: regular rate, rhythm, no edema, no gallop, no JVD, no murmur , normal peripheral pulses Abdomen/GI: + pertinent finding (quiet bowel sounds, soft, nontender, ileostomy RLQ, WoundVac dressing applied to midline incision) Extremities/Musculoskelatal: no calf tenderness, no pedal edema 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 HYPOTENSION, resolved secondary to VOLUME DEPLETION FROM ILEOSTOMY OUTPUT -- Presented to ED with severe hypotension with systolic blood pressures in the 60s.' crea 2.9 -- given IV fluids, BP improved crea returned to baseline, 0.73 on discharge -- Blood and urine cultures: negative given Dapto + Zosyn, d/c BP stable, remains afebrile, no leukocytosis - Sepsis ruled out ID was consulted - developed UTI symptoms again on Hospital Day 3, but afebrile, no leukocytosis repeat UA negative repeat Urine culture: pending - started on Macrobid 100mg BID based on previous cultures, needs four more days to complete 7 days total antibiotic course follow up closely ACUTE KIDNEY INJURY Serum creatinine 2.9 compared to baseline of 1.0 on 10/11/16. Acute kidney injury most likely secondary to volume depletion. -- crea back to baseline 0.73 -- Acetazolomide, Lisinopril, Losartan was held patient remained euvolemic, BP stable -- continue to hold Acetazolomide, Lisinopril, Losartan monitor crea and BP as outpatient HYPO K AND MG -- replaced with PO K and Mg - discharge on: K 20meq po daily MgCl 64mg BID - repeat K and Mg on ff up COLON CA, s/p RESECTION, ILEOSTOMY JULY 2016 During last admission in July, patient had bowel perforation secondary to underlying carcinoma. Follow-up management per General Surgery Dr. Ramachandran Will follow up with Oncologist as outpatient DM TYPE 2 resume Metformin HYPERTENSION -- Acetazolomide, Lisinopril, Losartan was held patient remained euvolemic, BP stable -- continue to hold Acetazolomide, Lisinopril, Losartan monitor BP as outpatient ABDOMINAL WOUND Slow healing abdominal incision, currently being managed with Wound Vac. No signs of infection Consulted Wound Care Nursing continue to ff up with Wound Care NAUSEA, VOMITING occurred 10/23/16 KUB no obstruction ileostomy output ok resolved with antiemetics DISPOSITION d/c home Internal Medicine follow-up with Dr. Graham on 10/26/2016 Surgical follow-up with Dr. Ramachandran as scheduled. Total time spent on discharge = 35 MINUTES This includes examination of the patient, discharge planning, medication reconciliation, and communication with other providers. Discharge Instructions Discharge Instructions Date of Service Oct 23, 2016. Admission Reason for Admission: Hypotension Discharge Discharge Diagnosis / Problem: HYPOTENSION, LIKELY SECONDARY TO VOLUME DEPLETION Discharge Goals Goal(s): Diagnostic testing, Therapeutic intervention Activity Recommendations Activity Limitations: as noted below (INCREASE ACTIVITY GRADUALLY TOLERATED) Lifting Limitations: gradually increase as tolerated Exercise/Sports Limitations: until after follow-up appointment . Instructions / Follow-Up Instructions / Follow-Up PLEASE REFER TO YOUR NEW MEDICATION LIST AND FOLLOW INSTRUCTIONS CAREFULLY. ENSURE ADEQUATE DAILY FLUID INTAKE. INCREASE FIBER IN YOUR DIET. CALL YOUR PRIMARY CARE PHYSICIAN OR RETURN TO ER IMMEDIATELY IF WITH RECURRENCE OF SYMPTOMS, INCREASING PAIN WITH URINATION, FEVER/CHILLS, ABDOMINAL PAIN, WEAKNESS, INCREASE REDNESS, PAIN, REDNESS, DISCHARGE ON THE ABDOMINAL WOUNDS. FOLLOW UP WITH DR. GRAHAM (ASSOCIATE OF DR. VENUS WHITTEN) ON OCTOBER 26, 2016Sunday AT 12:45PM. FOLLOW UP WITH DR. RAMACHANDRAN SCHEDULED. Current Hospital Diet Patient's current hospital diet: Diabetes Type 2 Diet, Renal Diet Discharge Diet Recommended Diet: AHA Diet (Heart Healthy), Diabetes Type 2 Diet Pending Studies Studies pending at discharge: yes List of pending studies: REPEAT BLOOD WORK C/O PRIMARY CARE PHYSICIAN Laboratory Results Hemoglobin A1c Test 10/20/16 05:41 Range/Units Estimated Average Glucose 111 mg/dl Hemoglobin A1c 5.5 4.5-5.6 % Medical Emergencies . Who to Call and When: Medical Emergencies: If at any time you feel your situation is an emergency, please call 911 immediately. . Non-Emergent Contact Non-Emergency issues call your: Primary Care Provider, Surgeon Call Non-Emergent contact if: you have a fever, your pain is not controlled, your pain is worsening, wound has increased drainage, wound has increased redness, wound has increased pain, you have any medication questions . Past History Medical & Surgical History: (1) Acute blood loss anemia (2) Perforation of colon (3) Fungemia (4) Colon cancer (5) Peritonitis (6) Polymicrobial sepsis (7) Hypotension (8) Dehydration (9) Depression (10) DM type 2 (diabetes mellitus, type 2) (11) Hypothyroidism (12) CKD (chronic kidney disease), stage III (13) COPD, moderate (14) S/P oophorectomy . "Provider Documentation" section prepared by Marco A Valente. . VTE Core Measure Inpt VTE Proph given/why not?: Unfractionated heparin SQ
[2016-10-23] MEDS: ONDANSETRON INJ 2 MG/ML 2 ML VIAL IV PRN (12:59)
[2016-10-23 15:16] VITALS: BP 109/67; PULSE 68; TEMP 37; O2SAT 96
[2016-10-23] MEDS ORDERED: METOCLOPRAMIDE HCL INJ 5 MG/ML 2 ML VIAL IV PRN (15:30)
[2016-10-23] MEDS ORDERED: ACETAMINOPHEN 500 MG TAB PO PRN (15:30)
[2016-10-23] MEDS ORDERED: PANTOprazole INJ 40 MG in SYRINGE 0 ML IV ONE (16:00)
--- NOTE | 2016-10-23 17:55 | Infectious Disease Progress Nt ---
Progress Note Date of Service Oct 23, 2016. Subjective Pt evaluation today including: conversation w/ patient, physical exam, chart review, lab review, review of studies, conversation w/ wallpaper consultant, review of inpatient medication list Patient offering no new complaints today. Feels well, all cultures negative. Ostomy output decreased. Blood pressure renal function improving. All Other Systems: Reviewed and Negative Medications Current Inpatient Medications Medications (Trade) Dose Ordered Sig/Kwabena Route Start Time Stop Time Status Last Admin Dose Admin Heparin Sodium (Porcine) (Heparin Sq 5000 Unit/0.5ml) 5,000 unit Q12 SQ 10/19/16 21:00 11/18/16 20:59 10/23/16 08:05 5,000 UNIT Pantoprazole Sodium (Protonix Tab) 40 mg DAILY PO 10/20/16 09:00 11/19/16 08:59 10/23/16 07:58 40 MG Cetirizine HCl (zyrTEC TAB) 5 mg DAILY PO 10/20/16 09:00 11/19/16 08:59 10/23/16 07:57 5 MG Fluticasone Propionate (Flonase Nasal [place]) 2 sprays DAILY MARI 10/20/16 09:00 11/19/16 08:59 10/23/16 07:57 2 SPRAYS Levothyroxine Sodium (Synthroid Tab) 88 mcg DAILYBB PO 10/20/16 06:00 11/19/16 05:59 10/23/16 04:57 88 MCG Sertraline HCl (Zoloft Tab) 50 mg HS PO 10/20/16 21:00 11/19/16 20:59 10/22/16 20:08 50 MG Albuterol (Ventolin Hfa Inhaler) 2 puffs QID INH 10/20/16 09:00 11/19/16 08:59 10/23/16 16:08 2 PUFFS Sodium Chloride 500 ml @ 999 mls/hr Q31M PRN IV 10/19/16 21:15 10/20/16 04:06 999 MLS/HR Insulin Aspart (novoLOG ASPART) SLIDING SCALE G... ACHS SC 10/20/16 07:00 11/19/16 06:59 Glucose (Glucose 40% Gel) 15-30 GRAMS 15 GRAMS... UD PRN PO 10/19/16 21:45 11/18/16 21:44 Glucose (Glucose Chew Tab) 4-8 Tablets 4 Tabl... UD PRN PO 10/19/16 21:45 11/18/16 21:44 Dextrose (Dextrose 50% 50ML Syringe) 25-50ML OF 50% DW IV FOR... UD PRN IV 10/19/16 21:45 11/18/16 21:44 Glucagon (Glucagon Inj) 1 mg UD PRN SQ 10/19/16 21:45 11/18/16 21:44 Heparin Sodium (Porcine) (Heparin 10 Unit/ ml 5 ml Flush) 5 ml PRN PRN FLUSH 10/20/16 00:30 11/19/16 00:29 10/23/16 04:49 5 ML Magnesium Oxide (Mag-Ox Tab) 400 mg BID PO 10/22/16 09:00 11/21/16 08:59 10/23/16 07:57 400 MG Nitrofurantoin Macrocrystals (Macrobid Cap) 100 mg BIDM PO 10/22/16 18:00 11/01/16 17:59 10/23/16 16:08 100 MG Magnesium Chloride (Slow-Mag Tab) 64 mg BID PO 10/23/16 21:00 11/22/16 20:59 Potassium Chloride (Klor-Con Tab) 20 meq QAM PO 10/24/16 09:00 11/23/16 08:59 Ondansetron HCl (Zofran Inj) 4 mg Q6H PRN IV 10/23/16 12:30 11/22/16 12:29 10/23/16 12:59 4 MG Metoclopramide HCl (Reglan Inj) 10 mg Q6H PRN IV 10/23/16 15:30 11/22/16 15:29 Acetaminophen (Tylenol Tab) 500 mg Q6H PRN PO 10/23/16 15:30 11/22/16 15:29 10/23/16 16:08 500 MG Objective Vital Signs Date Time Temp Pulse Resp B/P (MAP) Pulse Ox O2 Delivery O2 Flow Rate FiO2 10/23/16 16:00 Room Air 10/23/16 15:16 37.0 68 20 109/67 (81) 96 Room Air 10/23/16 12:00 Room Air 10/23/16 11:48 36.8 72 18 136/74 (94) 99 Room Air 10/23/16 08:00 Room Air 10/23/16 06:58 36.5 69 17 136/76 (96) 96 Room Air 10/23/16 04:20 37.0 74 18 125/71 (89) 95 Room Air 10/23/16 04:00 Room Air 10/23/16 00:00 Room Air 10/22/16 23:00 37.1 67 16 125/78 (94) 96 Room Air 10/22/16 20:00 Room Air 10/22/16 19:05 36.9 69 18 107/67 (80) 100 Room Air Physical Exam General Appearance: WD/WN, no apparent distress Eyes: normal inspection, sclerae normal ENT: normal ENT inspection, pharynx normal Neck: supple, no adenopathy, trachea midline Respiratory/Chest: lungs clear, normal breath sounds, no respiratory distress Cardiovascular: regular rate, rhythm, no gallop, no murmur Abdomen: normal bowel sounds, non tender, soft, no organomegaly Extremities: non-tender, no calf tenderness Neurologic/Psychiatric: alert, oriented x 3 Skin: normal color, warm/dry, no rash Lymphatic: no adenopathy Laboratory Results Last 24 Hours Test 10/22/16 20:05 10/23/16 04:50 10/23/16 06:37 10/23/16 11:34 Bedside Glucose 108 mg/dl 101 mg/dl 77 mg/dl White Blood Count 10.96 K/uL Red Blood Count 3.64 M/uL Hemoglobin 9.8 g/dL Hematocrit 30.3 % Mean Corpuscular Volume 83.2 fL Mean Corpuscular Hemoglobin 26.9 pg Mean Corpuscular Hemoglobin Concent 32.3 g/dl Platelet Count 315 K/uL Mean Platelet Volume 9.7 fL Neutrophils (%) (Auto) 67.2 % Lymphocytes (%) (Auto) 21.8 % Monocytes (%) (Auto) 7.1 % Eosinophils (%) (Auto) 2.6 % Basophils (%) (Auto) 0.6 % Neutrophils # (Auto) 7.36 K/uL Lymphocytes # (Auto) 2.39 K/uL Monocytes # (Auto) 0.78 K/uL Eosinophils # (Auto) 0.28 K/uL Basophils # (Auto) 0.07 K/uL RDW Standard Deviation 48.0 fL RDW Coefficient of Variation 15.6 % Immature Granulocyte % (Auto) 0.7 % Immature Granulocyte # (Auto) 0.08 K/uL Sodium Level 141 mmol/L Potassium Level 3.8 mmol/L Chloride Level 114 mmol/L Carbon Dioxide Level 20 mmol/L Anion Gap 7.0 mmol/L Blood Urea Nitrogen 12 mg/dl Creatinine 0.73 mg/dl Est Creatinine Clear Calc Drug Dose 66.6 ml/min Estimated GFR () 96.7 Estimated GFR (Non- 83.4 BUN/Creatinine Ratio 16.8 Random Glucose 88 mg/dl Calcium Level 8.2 mg/dl Magnesium Level 1.7 mg/dl Test 10/23/16 16:15 Bedside Glucose 81 mg/dl Assessment and Plan 71-year-old female with recently diagnosed colon cancer status post perforation , now presents with hypotension associated with elevated output from her ostomy. Patient appears more likely to have significant dehydration rather than sepsis,. Blood cultures remain negative. Agree with discontinuation of antibiotics and see no contraindication for discharge from ID standpoint.
--- NOTE | 2016-10-23 17:58 | DIAGNOSTIC IMAGING REPORT ---
KUB CLINICAL HISTORY: r/o obstruction pain COMPARISON STUDY: 08/06/2016 FINDINGS: Catheter overlying the mid pelvic region. Nonobstructive bowel pattern. No evidence for gastric distention. IMPRESSION: Nonobstructive bowel pattern. The above report was generated using voice recognition software. It may contain grammatical, syntax or spelling errors. Electronically signed by: Дмитрий Milian M.D. 10/23/2016 5:57 PM Dictated Date/Time: 10/23/2016 5:56 PM
[2016-10-23 19:50] VITALS: BP 108/65; PULSE 63; TEMP 37.4; O2SAT 96
[2016-10-23] MEDS: SERTRALINE HCL 50 MG TAB PO SCH (20:44)
[2016-10-23] MEDS: MAGNESIUM CHLORIDE 64MG DELAYED REL TAB PO SCH (20:44)
[2016-10-23 23:54] VITALS: BP 137/80; PULSE 66; TEMP 36.6; O2SAT 98
[2016-10-24] VITALS (8 sets, daily range): BP systolic 107–126; BP diastolic 61–97; PULSE 65–84; TEMP 36.6–36.9; O2SAT 95–98
[2016-10-24 04:33] LABS: BASO % 0.5 %; BASO ABS # 0.06 K/uL (0-0.2); COMPLETE YES; EOS % 3.6 %; HEMATOCRIT 33.7 % (37-47); IG% 0.9 %; LYMPH % 23.9 %; LYMPH ABS # 2.77 K/uL (1.2-3.4); MEAN CELL VOLUME 83.6 fL (80-100); MEAN CORPUSCULAR HEMOGLOBIN 26.6 pg (25-34); MEAN CORPUSCULAR HGB CONC 31.8 g/dl (32-36); MEAN PLATELET VOLUME 9.3 fL (7.4-10.4); MONO % 6.8 %; NEUT % 64.3 %; PLATELET COUNT 359 K/uL (130-400); RED BLOOD COUNT 4.03 M/uL (4.2-5.4)
[2016-10-24] MEDS: ONDANSETRON INJ 2 MG/ML 2 ML VIAL IV PRN (04:35)
[2016-10-24 05:00] LABS: BUN/CREATININE RATIO 15.3 (10-20); CALCIUM 8.5 mg/dl (8.5-10.1); CREATININE 0.72 mg/dl (0.60-1.20); MAGNESIUM 1.7 mg/dl (1.8-2.4)
[2016-10-24 05:32] LABS: POTASSIUM 4.4 mmol/L (3.5-5.1)
[2016-10-24] MEDS: LEVOTHYROXINE 88 MCG TAB PO SCH (06:10)
[2016-10-24] MEDS: INSULIN ASPART 100 UNITS/ML 3 ML PEN SC SCH ×2 (08:37→11:52)
[2016-10-24] MEDS: HEPARIN SOD 5000 UNIT/0.5 ML CARP SQ SCH (08:39)
[2016-10-24] MEDS: MAGNESIUM CHLORIDE 64MG DELAYED REL TAB PO SCH (08:39)
[2016-10-24] MEDS: NITROFURANTOIN MONOHYDRATE 100 MG CAP PO SCH (08:39)
[2016-10-24] MEDS: CETIRIZINE HCL 10 MG TAB PO SCH (08:39)
[2016-10-24] MEDS: PANTOprazole SOD 40 MG TAB PO SCH (08:39)
[2016-10-24] MEDS: MAGNESIUM OXIDE 400 MG TAB PO SCH (08:39)
[2016-10-24] MEDS: ALBUTEROL HFA 8 GM INHALER INH SCH ×2 (08:40→11:53)
[2016-10-24] MEDS: UMECLIDINIUM-VILANTEROL (ANORO) INH SCH (08:40)
[2016-10-24] MEDS: FLUTICASONE PROPIONATE NA SPR 16 GM BTL NAE SCH (08:40)
[2016-10-24] MEDS ORDERED: POTASSIUM CHLORIDE 20 MEQ TABCR PO SCH (09:00)
--- NOTE | 2016-10-24 12:19 | Progress Note ---
Medicine Progress Note Date & Time of Visit: Oct 24, 2016 at 12:16. Subjective patient seen resting in bed, comfortable states her nausea has resolved no other symptoms states she feels better overall, ready and would like to be discharged today Objective Last 8 Hrs Date Time Temp Pulse Resp B/P (MAP) Pulse Ox O2 Delivery O2 Flow Rate FiO2 10/24/16 12:03 36.7 84 20 108/69 (82) 98 10/24/16 08:26 36.9 65 18 109/97 (101) 95 10/24/16 08:00 Room Air Physical Exam: General- oriented x 3, not in distress, speaks in sentences with no effort Neck- no JVD Lungs- clear breath sounds bilaterally Heart- regular rhythm; no murmur, normal rate Abdomen- normal bowel sounds, non distended, soft, nontender Colostomy site, Abdominal wound, Abdominal Fistula: no signs of infection Extremities- no pretibial edema, no calf tenderness; peripheral pulses intact Neuro- alert, oriented x 3; no gross focal deficits Skin- warm & dry Laboratory Results: Last 24 Hours Test 10/23/16 16:15 10/23/16 20:04 10/24/16 04:20 10/24/16 06:32 Bedside Glucose 81 mg/dl 112 mg/dl 86 mg/dl White Blood Count 11.60 K/uL Red Blood Count 4.03 M/uL Hemoglobin 10.7 g/dL Hematocrit 33.7 % Mean Corpuscular Volume 83.6 fL Mean Corpuscular Hemoglobin 26.6 pg Mean Corpuscular Hemoglobin Concent 31.8 g/dl Platelet Count 359 K/uL Mean Platelet Volume 9.3 fL Neutrophils (%) (Auto) 64.3 % Lymphocytes (%) (Auto) 23.9 % Monocytes (%) (Auto) 6.8 % Eosinophils (%) (Auto) 3.6 % Basophils (%) (Auto) 0.5 % Neutrophils # (Auto) 7.46 K/uL Lymphocytes # (Auto) 2.77 K/uL Monocytes # (Auto) 0.79 K/uL Eosinophils # (Auto) 0.42 K/uL Basophils # (Auto) 0.06 K/uL RDW Standard Deviation 48.2 fL RDW Coefficient of Variation 15.7 % Immature Granulocyte % (Auto) 0.9 % Immature Granulocyte # (Auto) 0.10 K/uL Sodium Level 140 mmol/L Potassium Level 4.4 mmol/L Chloride Level 113 mmol/L Carbon Dioxide Level 20 mmol/L Anion Gap 7.0 mmol/L Blood Urea Nitrogen 11 mg/dl Creatinine 0.72 mg/dl Est Creatinine Clear Calc Drug Dose 67.5 ml/min Estimated GFR () 98.3 Estimated GFR (Non- 84.9 BUN/Creatinine Ratio 15.3 Random Glucose 95 mg/dl Calcium Level 8.5 mg/dl Magnesium Level 1.7 mg/dl Test 10/24/16 11:18 Bedside Glucose 99 mg/dl Assessment & Plan 71 year old female with history of Colon Cancer, s/p Resection, s/p Ileostomy last July 2016, DM, HTN, CKD 3, COPD presenting with low blood pressures. HYPOTENSION, resolved secondary to VOLUME DEPLETION FROM ILEOSTOMY OUTPUT -- Presented to ED with severe hypotension with systolic blood pressures in the 60s.' crea 2.9 -- given IV fluids, BP improved crea returned to baseline, 0.73 on discharge -- Blood and urine cultures: negative given Dapto + Zosyn, d/c BP stable, remains afebrile, no leukocytosis - Sepsis ruled out ID was consulted - developed UTI symptoms again on Hospital Day 3, but afebrile, no leukocytosis repeat UA negative repeat Urine culture: pending - started on Macrobid 100mg BID based on previous cultures, needs four more days to complete 7 days total antibiotic course follow up closely ACUTE KIDNEY INJURY Serum creatinine 2.9 compared to baseline of 1.0 on 10/11/16. Acute kidney injury most likely secondary to volume depletion. -- crea back to baseline 0.73 -- Acetazolomide, Lisinopril, Losartan was held patient remained euvolemic, BP stable -- continue to hold Acetazolomide, Lisinopril, Losartan monitor crea and BP as outpatient HYPO K AND MG -- replaced with PO K and Mg - discharge on: K 20meq po daily MgCl 64mg BID - repeat K and Mg on ff up COLON CA, s/p RESECTION, ILEOSTOMY JULY 2016 During last admission in July, patient had bowel perforation secondary to underlying carcinoma. Follow-up management per General Surgery Dr. Powers Will follow up with Oncologist as outpatient DM TYPE 2 resume Metformin HYPERTENSION -- Acetazolomide, Lisinopril, Losartan was held patient remained euvolemic, BP stable -- continue to hold Acetazolomide, Lisinopril, Losartan monitor BP as outpatient ABDOMINAL WOUND Slow healing abdominal incision, currently being managed with Wound Vac. No signs of infection Consulted Wound Care Nursing continue to ff up with Wound Care Nausea, Vomiting occurred 10/23/16 KUB no obstruction ileostomy output ok resolved with antiemetics DISPOSITION d/c home Internal Medicine follow-up with Dr. Graham on 10/26/2016 Surgical follow-up with Dr. Powers as scheduled. 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 Ellis; Wound Care Consult Current Inpatient Medications: Current Inpatient Medications Medications (Trade) Dose Ordered Sig/[place]ena Route Start Time Stop Time Status Last Admin Dose Admin Heparin Sodium (Porcine) (Heparin Sq 5000 Unit/0.5ml) 5,000 unit Q12 SQ 10/19/16 21:00 11/18/16 20:59 10/24/16 08:39 5,000 UNIT Pantoprazole Sodium (Protonix Tab) 40 mg DAILY PO 10/20/16 09:00 11/19/16 08:59 10/24/16 08:39 40 MG Cetirizine HCl (zyrTEC TAB) 5 mg DAILY PO 10/20/16 09:00 11/19/16 08:59 10/24/16 08:39 5 MG Fluticasone Propionate (Flonase Nasal [place]) 2 sprays DAILY MARI 10/20/16 09:00 11/19/16 08:59 10/24/16 08:40 2 SPRAYS Levothyroxine Sodium (Synthroid Tab) 88 mcg DAILYBB PO 10/20/16 06:00 11/19/16 05:59 10/24/16 06:10 88 MCG Sertraline HCl (Zoloft Tab) 50 mg HS PO 10/20/16 21:00 11/19/16 20:59 10/23/16 20:44 50 MG Albuterol (Ventolin Hfa Inhaler) 2 puffs QID INH 10/20/16 09:00 11/19/16 08:59 10/24/16 11:53 2 PUFFS Sodium Chloride 500 ml @ 999 mls/hr Q31M PRN IV 10/19/16 21:15 10/20/16 04:06 999 MLS/HR Insulin Aspart (novoLOG ASPART) SLIDING SCALE G... ACHS SC 10/20/16 07:00 11/19/16 06:59 Glucose (Glucose 40% Gel) 15-30 GRAMS 15 GRAMS... UD PRN PO 10/19/16 21:45 11/18/16 21:44 Glucose (Glucose Chew Tab) 4-8 Tablets 4 Tabl... UD PRN PO 10/19/16 21:45 11/18/16 21:44 Dextrose (Dextrose 50% 50ML Syringe) 25-50ML OF 50% DW IV FOR... UD PRN IV 10/19/16 21:45 11/18/16 21:44 Glucagon (Glucagon Inj) 1 mg UD PRN SQ 10/19/16 21:45 11/18/16 21:44 Heparin Sodium (Porcine) (Heparin 10 Unit/ ml 5 ml Flush) 5 ml PRN PRN FLUSH 10/20/16 00:30 11/19/16 00:29 10/23/16 04:49 5 ML Magnesium Oxide (Mag-Ox Tab) 400 mg BID PO 10/22/16 09:00 11/21/16 08:59 10/24/16 08:39 400 MG Nitrofurantoin Macrocrystals (Macrobid Cap) 100 mg BIDM PO 10/22/16 18:00 11/01/16 17:59 10/24/16 08:39 100 MG Magnesium Chloride (Slow-Mag Tab) 64 mg BID PO 10/23/16 21:00 11/22/16 20:59 10/24/16 08:39 64 MG Potassium Chloride (Klor-Con Tab) 20 meq QAM PO 10/24/16 09:00 11/23/16 08:59 10/24/16 08:40 20 MEQ Ondansetron HCl (Zofran Inj) 4 mg Q6H PRN IV 10/23/16 12:30 11/22/16 12:29 10/24/16 04:35 4 MG Metoclopramide HCl (Reglan Inj) 10 mg Q6H PRN IV 10/23/16 15:30 11/22/16 15:29 Acetaminophen (Tylenol Tab) 500 mg Q6H PRN PO 10/23/16 15:30 11/22/16 15:29 10/23/16 16:08 500 MG
[2016-10-24] MEDS ORDERED: MAGNESIUM SULFATE 1GM / D5W 1 GM in PREMIXED IN D5W 100 ML IV SCH (12:30)
[2016-10-31] MEDS ORDERED: CYAN10005 PO (07:59)
[2016-10-31] MEDS ORDERED: FERR1TAB13 PO (07:59)
[2016-12-22] MEDS ORDERED: SENN-61 PO (13:03)
[2016-12-22] MEDS ORDERED: MULT-916 PO (13:03)
[2016-12-22] MEDS ORDERED: UMEC1AER INH (13:03)
== END 2016-10-24 15:37 | disposition home health service (06) | DRG 315 ==
LOC: C.EDB 15:19 → C.MSICU 19:44 → ENRESERV 19:52 → C.2T 10-20 18:53
PROVIDERS: ADMIT Hospitalist; ATTEND Internal Medicine
PROC: 02HV33Z Insertion of Infusion Device into Superior Vena Cava, Percutaneous Approach (ICD-10-PCS; principal; 2016-10-19)
DX: I95.89 Other hypotension (principal); N17.9 Acute kidney failure, unspecified; E86.9 Volume depletion, unspecified; N18.3 Chronic kidney disease, stage 3 (moderate); J44.9 Chronic obstructive pulmonary disease, unspecified; E11.21 Type 2 diabetes mellitus with diabetic nephropathy; I12.9 Hypertensive chronic kidney disease with stage 1 through stage 4 chronic kidney disease, or unspecified chronic kidney disease; E03.9 Hypothyroidism, unspecified; Z93.2 Ileostomy status; F32.9 Major depressive disorder, single episode, unspecified; E87.6 Hypokalemia; E83.42 Hypomagnesemia; Z87.891 Personal history of nicotine dependence; Z85.038 Personal history of other malignant neoplasm of large intestine

== ENCOUNTER 2016-11-07 20:13 | Inpatient (IN) | payer BC, OTHER ==
[~2016-11-07] VITALS: Ht 160 cm; Wt 71.1 kg
[~2016-11-07 20:13] MED LIST changes: -ACET-1311 PO; -ACET-1325 PO; -BISA1SUP4 RE; +CYAN10005 PO; -DOCU50CA10 PO; -ENOX40IN SQ; +FERR1TAB13 PO; -LEVO75TA5 PO; +LEVO88TA3 PO; +MCRB100 PO; +MCRK20 PO; +SLWMEC PO; +UMEC1AER INH
[2016-11-07] MEDS ORDERED: ONDANSETRON INJ 2 MG/ML 2 ML VIAL IV STA ×2 (20:28→22:09)
[2016-11-07] MEDS ORDERED: SODIUM CHLORIDE 0.9% 500ML 500 ML IV STA (20:28)
[2016-11-07 21:10] LABS: BASO % 0.2 %; BASO ABS # 0.03 K/uL (0-0.2); COMPLETE YES; EOS % 0.2 %; HEMATOCRIT 37.7 % (37-47); IG% 0.3 %; LYMPH % 8.6 %; LYMPH ABS # 1.45 K/uL (1.2-3.4); MEAN CORPUSCULAR HEMOGLOBIN 26.9 pg (25-34); MEAN CORPUSCULAR HGB CONC 32.1 g/dl (32-36); MEAN PLATELET VOLUME 9.3 fL (7.4-10.4); MONO % 3.2 %; NEUT % 87.5 %; PLATELET COUNT 512 K/uL (130-400); RED BLOOD COUNT 4.49 M/uL (4.2-5.4); WHITE BLOOD COUNT 16.93 K/uL (4.8-10.8)
[2016-11-07 21:26] LABS: BLOOD UREA NITROGEN 18 mg/dl (7-18); CALCIUM 10.4 mg/dl (8.5-10.1); CARBON DIOXIDE 24 mmol/L (21-32); CHLORIDE 101 mmol/L (98-107); CREATININE 0.77 mg/dl (0.60-1.20); GLUCOSE 139 mg/dl (70-99); SODIUM 135 mmol/L (136-145)
[2016-11-07 21:27] LABS: ALT/SGPT 21 U/L (12-78)
[2016-11-07 21:29] LABS: ALKALINE PHOSPHATASE 55 U/L (45-117); AST/SGOT 19 U/L (15-37)
[2016-11-07] MEDS ORDERED: ONDA4TAB46 PO (21:41)
--- NOTE | 2016-11-07 21:55 | DIAGNOSTIC IMAGING REPORT ---
ABDOMEN 2VIEW W/PA CHEST RTN CLINICAL HISTORY: vomitting eval for obstruction pain. Nausea. COMPARISON STUDY: 10/23/2016 FINDINGS: Negative chest. Lungs are clear. Bowel pattern suggesting partial mid to distal small bowel obstruction. No evidence for colonic distention. Gastric air bubble appears to be unremarkable. IMPRESSION: Partial small bowel obstruction. Negative chest. The above report was generated using voice recognition software. It may contain grammatical, syntax or spelling errors. Electronically signed by: Дмитрий Milian M.D. 11/07/2016 9:54 PM Dictated Date/Time: 11/07/2016 9:53 PM
[2016-11-07] MEDS ORDERED: PROMETHAZINE HCL INJ 12.5 MG in SODIUM CHLORIDE 0.9% 50ML 50 ML IV ONE (22:56)
[2016-11-07] MEDS ORDERED: PROMETHAZINE HCL INJ 12.5 MG in SODIUM CHLORIDE 0.9% 50ML 50 ML IV PRN (23:00)
[2016-11-08] MEDS ORDERED: POLYETHYLENE (MIRALAX) 17 GM PACK PO ONE (00:22)
[2016-11-08] MEDS ORDERED: DOCUSATE SODIUM/SENNA 50/8.6MG TAB PO ONE (00:22)
[2016-11-08] MEDS ORDERED: POLYETHYLENE (MIRALAX) 17 GM PACK PO PRN (00:30)
[2016-11-08] MEDS ORDERED: GLUCOSE 10 TABS/TUBE PO PRN (00:30)
[2016-11-08] MEDS ORDERED: LORAZEPAM 2 MG/ML 1 ML VIAL IV PRN (00:30)
[2016-11-08] MEDS ORDERED: HYDROmorphone INJ 0.5 MG/0.5 ML SYR IV PRN (00:30)
[2016-11-08] MEDS ORDERED: TRAMADOL HCL 50 MG TAB PO PRN (00:30)
[2016-11-08] MEDS ORDERED: ONDANSETRON INJ 2 MG/ML 2 ML VIAL IV PRN (00:30)
[2016-11-08] MEDS ORDERED: GLUCAGON FOR INJ 1 MG VIAL SQ PRN (00:30)
[2016-11-08] MEDS ORDERED: ACETAMINOPHEN 325 MG TAB PO PRN (00:30)
[2016-11-08] MEDS ORDERED: KETOROLAC TROMETHAMINE 15 MG/ML VIAL IV. PRN (00:30)
[2016-11-08] MEDS ORDERED: GLUCOSE 40% GEL 15 GM TUBE PO PRN (00:30)
[2016-11-08] MEDS ORDERED: DEXTROSE 50% 50 ML SYR IV PRN (00:30)
--- NOTE | 2016-11-08 00:44 | EMERGENCY ROOM VISIT NOTE ---
History Report prepared by Katharine: Roderick Perkins Under the Supervision of: Dr. Jarrod Patterson M.D. First contact with patient: 20:23 Chief Complaint: NAUSEA Stated Complaint: STOMACH DISCOMFORT History of Present Illness The patient is a 71 year old female who presents to the Emergency Room with complaints of nausea that began 8 hours ago. In July of this year, the patient underwent colectomy secondary to colon cancer. She has as ileostomy in place. Her wound vac was removed 1 week ago. This afternoon, she began to experience her nausea with abdominal discomfort. She had a few episodes of vomiting as well. She denies any fevers or abnormal urinary symptoms. She has had little ileostomy output since 1300 today. Source of History: patient Onset: 8 hours ago Position: other (global) Symptom Intensity: moderate Quality: other (Nausea) Timing: constant Associated Symptoms: + vomiting, + abdominal pain (discomfort), No fevers, No urinary symptoms Note: She has been having very little ileostomy output. Review of Systems See HPI for pertinent positives & negatives. A total of 10 systems reviewed and were otherwise negative. Past Medical & Surgical Medical Problems: (1) Acute blood loss anemia (2) CKD (chronic kidney disease), stage III (3) Colon cancer (4) COPD, moderate (5) Depression (6) DM type 2 (diabetes mellitus, type 2) (7) Fungemia (8) Hypotension (9) Hypothyroidism (10) Perforation of colon (11) Peritonitis (12) Polymicrobial sepsis (13) SBO (small bowel obstruction) Surgical Problems: (1) S/P oophorectomy Family History Colon cancer SISTER SISTER Heart disease MOTHER Hypertension FATHER MOTHER Social History Smoking Status: Former Smoker Alcohol Use: none Drug Use: none Marital Status: single Occupation Status: retired Current/Historical Medications Scheduled Albuterol Sulfate (Proair Respiclick), 2 PUFF INH QID Alendronate Sodium (Fosamax), 70 MG PO WK Ascorbic Acid (Vitamin C), 500 MG PO HS Calcium Citrate-Vitamin D (Citracal + D3 Maximum), 1 TAB PO DAILY Cetirizine Hcl (Zyrtec), 5 MG PO DAILY Cyanocobalamin (Vitamin B-12), 1,000 MCG PO DAILY Ferrous Sulfate (Kp Ferrous Sulfate), 1 TAB PO DAILY Fluticasone Propionate (Nasal) (Flonase Allergy Relief), 2 SPRAYS MARI DAILY Levothyroxine Sodium (Levothyroxine Sodium), 88 MCG PO DAILY Magnesium Chloride (Slow-Mag Tab), 64 MG PO BID Multivitamin (Multivitamin), 1 TAB PO QAM Pravastatin (Pravachol ), 20 MG PO DAILY Sertraline (Zoloft), 50 MG PO HS Umeclidinium-Vilanterol (Anoro Ellipta 62.5-25 Mcg/INH), 1 PUFF INH DAILY Scheduled PRN Aluminum Hydroxide-Mag Trisil (Gaviscon), 2 TABS PO QID PRN for GI Upset Ondansetron Hcl (Zofran), 4 MG PO Q6 PRN for Nausea Allergies Coded Allergies: No Known Allergies (Unverified , 10/19/16) Physical Exam Vital Signs Date Time Temp Pulse Resp B/P (MAP) Pulse Ox O2 Delivery O2 Flow Rate FiO2 11/07/16 23:40 91 16 165/94 92 Room Air 11/07/16 22:20 97 168/102 95 Room Air 11/07/16 20:17 36.6 93 20 137/80 93 Room Air Physical Exam Constitutional: Vital signs reviewed. Eyes: Pupils are equal round reactive to light. Conjunctiva are noninjected. ENT: Pharynx is clear without erythema or exudate. Mucous membranes are dry. Neck supple without meningeal signs. Respiratory: Clear to auscultation bilaterally. Breath sounds are equal bilaterally. Cardiovascular: Regular rate and rhythm. No rubs or gallops. GI: Soft, nondistended and nontender. Bowel sounds are present. Ileostomy in place in the RLQ with minimal output. Musculoskeletal: No peripheral edema. No lower extremity tenderness. Integumentary: No cyanosis. Neurological: The patient is awake and alert. No focal deficits. Psychiatric: Normal affect. Medical Decision & Procedures ER Provider Diagnostic Interpretation: Radiology results as stated below per my review and the radiologist's interpretation: ABDOMEN 2VIEW W/PA CHEST RTN CLINICAL HISTORY: vomitting eval for obstruction pain. Nausea. COMPARISON STUDY: 10/23/2016 FINDINGS: Negative chest. Lungs are clear. Bowel pattern suggesting partial mid to distal small bowel obstruction. No evidence for colonic distention. Gastric air bubble appears to be unremarkable. IMPRESSION: Partial small bowel obstruction. Negative chest. The above report was generated using voice recognition software. It may contain grammatical, syntax or spelling errors. Electronically signed by: Дмитрий Milian M.D. 11/07/2016 9:54 PM Dictated Date/Time: 11/07/2016 9:53 PM Laboratory Results 11/07/16 20:55 Red Blood Count 4.49, Mean Corpuscular Volume 84.0, Mean Corpuscular Hemoglobin 26.9, Mean Corpuscular Hemoglobin Concent 32.1, Mean Platelet Volume 9.3, Neutrophils (%) (Auto) 87.5, Lymphocytes (%) (Auto) 8.6, Monocytes (%) (Auto) 3.2, Eosinophils (%) (Auto) 0.2, Basophils (%) (Auto) 0.2, Neutrophils # (Auto) 14.81, Lymphocytes # (Auto) 1.45, Monocytes # (Auto) 0.55, Eosinophils # (Auto) 0.04, Basophils # (Auto) 0.03 11/07/16 20:55 Test 11/07/16 20:55 White Blood Count 16.93 K/uL (4.8-10.8) Red Blood Count 4.49 M/uL (4.2-5.4) Hemoglobin 12.1 g/dL (12.0-16.0) Hematocrit 37.7 % (37-47) Mean Corpuscular Volume 84.0 fL (80-100) Mean Corpuscular Hemoglobin 26.9 pg (25-34) Mean Corpuscular Hemoglobin Concent 32.1 g/dl (32-36) Platelet Count 512 K/uL (130-400) Mean Platelet Volume 9.3 fL (7.4-10.4) Neutrophils (%) (Auto) 87.5 % Lymphocytes (%) (Auto) 8.6 % Monocytes (%) (Auto) 3.2 % Eosinophils (%) (Auto) 0.2 % Basophils (%) (Auto) 0.2 % Neutrophils # (Auto) 14.81 K/uL (1.4-6.5) Lymphocytes # (Auto) 1.45 K/uL (1.2-3.4) Monocytes # (Auto) 0.55 K/uL (0.11-0.59) Eosinophils # (Auto) 0.04 K/uL (0-0.5) Basophils # (Auto) 0.03 K/uL (0-0.2) RDW Standard Deviation 47.1 fL (36.4-46.3) RDW Coefficient of Variation 15.4 % (11.5-14.5) Immature Granulocyte % (Auto) 0.3 % Immature Granulocyte # (Auto) 0.05 K/uL (0.00-0.02) Anion Gap 10.0 mmol/L (3-11) Est Creatinine Clear Calc Drug Dose 64.5 ml/min Estimated GFR () 90.7 Estimated GFR (Non- 78.2 BUN/Creatinine Ratio 23.0 (10-20) Calcium Level 10.4 mg/dl (8.5-10.1) Magnesium Level 1.6 mg/dl (1.8-2.4) Total Bilirubin 0.3 mg/dl (0.2-1) Direct Bilirubin < 0.1 mg/dl (0-0.2) Aspartate Amino Transf (AST/SGOT) 19 U/L (15-37) Alanine Aminotransferase (ALT/SGPT) 21 U/L (12-78) Alkaline Phosphatase 55 U/L (45-117) Total Protein 8.2 gm/dl (6.4-8.2) Albumin 3.3 gm/dl (3.4-5.0) Lipase 175 U/L (73-393) Laboratory results as reviewed by me. Medications Administered Medications (Trade) Dose Ordered Sig/Kwabena Route Start Time Stop Time Status Last Admin Dose Admin Ondansetron HCl (Zofran Inj) 4 mg NOW STAT IV 11/07/16 20:28 11/07/16 20:30 DC 11/07/16 21:04 4 MG Sodium Chloride 500 ml @ 999 mls/hr Q31M STAT IV 11/07/16 20:28 11/07/16 20:58 DC 11/07/16 21:04 999 MLS/HR Ondansetron HCl (Zofran Inj) 4 mg NOW STAT IV 11/07/16 22:09 11/07/16 22:10 DC 11/07/16 22:18 4 MG Promethazine HCl 12.5 mg/Sodium Chloride 50.5 ml @ 204 mls/hr 2256 ONCE IV 11/07/16 22:56 11/07/16 23:10 DC 11/07/16 23:33 204 MLS/HR ED Course 2022: The patient was evaluated in room C6. A complete history and physical exam was performed. 2027: Ordered Sodium Chloride 500 ml @ 999 mls/hr IV, Zofran Inj 4 mg IV 2205: I spoke with the patient about her test results at this time. 2208: Ordered Zofran Inj 4 mg IV and a NG tube. 2207: I spoke with Dr. Olivo of the [facility] Service at this time. We discussed the patient's case. He will be evaluating the patient for further management and care. Medical Decision This is a 71-year-old female who presents with vomiting and abdominal pain. Differential diagnosis includes bowel obstruction, partial obstruction, dehydration, electrolyte abnormality, adhesions. I did perform a limited focused review of portions of the patient's old chart on the electronic medical record. The patient was seen in the hospital as an inpatient on October 19 of this year for hypotension and volume deficiency from ileostomy output. I did evaluate the patient as noted above. The patient is presenting with vomiting and decreased ileostomy output. She is concerned about obstruction. IV access was established. I did treat patient with IV Zofran. I did order and personally review the patient's abdominal and chest x-rays as described above. She does appear to have a partial bowel obstruction. I did order and review the patient's blood work as noted in the electronic medical record. I did discuss the test results with the patient. I did order an NG tube. She was given additional Zofran. She will be hospitalized for further care and evaluation. I did discuss the case with the hospitalist and rifle case repairer. Medication Reconcilliation Current Medication List: was personally reviewed by me Blood Pressure Screening Patient's blood pressure: Elevated blood pressure Blood pressure disposition: Elevated BP felt to be situational Consults Time Called: 2205 Consulting Physician: Dr. Olivo - [facility] Returned Call: 2207 We discussed the patient's case. He will be evaluating the patient for further management and care. Impression Primary Impression: SBO (small bowel obstruction) Scribe Attestation The scribe's documentation has been prepared under my direct and personally reviewed by me in its entirety. I confirm that the note above accurately reflects all work, treatment, procedures, and medical decision making performed by me. Departure Information Dispostion Being Evaluated By Hospitalist Referrals No Doctor, Assigned (PCP) Patient Instructions [facility]
[2016-11-08 00:45] VITALS: BP 155/73; PULSE 89; TEMP 36.8; O2SAT 95; Ht 160 cm; Wt 71.1 kg
[2016-11-08] MEDS ORDERED: MAGNESIUM SULFATE 1GM / D5W 1 GM in PREMIXED IN D5W 100 ML IV ONE (01:00)
[2016-11-08] MEDS: SODIUM CHLORIDE 0.9% 1000ML 1,000 ML IV SCH ×3 (01:29→23:59)
[2016-11-08] MEDS ORDERED: LORAZEPAM INJ 0.5 MG in SYRINGE 0.75 ML IV PRN (02:30)
[2016-11-08 03:43] LABS: URINE APPEARANCE CLEAR (CLEAR); URINE BILIRUBIN NEG (NEG); URINE COLOR DK YELLOW; URINE EPITHELIAL CELL AUTO >30 /lpf (0-5); URINE NITRITE NEG (NEG); URINE SPECIFIC GRAVITY 1.025 (1.000-1.030); UROBILINOGEN NEG (NEG)
[2016-11-08 03:45] LABS: MANUAL MICROSCOPIC REQUIRED? NO; REVIEW REQ? YES
[2016-11-08] MEDS: LEVOTHYROXINE 88 MCG TAB PO SCH (05:37)
[2016-11-08] MEDS: INSULIN ASPART 100 UNITS/ML 3 ML PEN SC SCH ×4 (05:45→23:58)
[2016-11-08 06:19] LABS: BASO % 0.2 %; BASO ABS # 0.03 K/uL (0-0.2); COMPLETE YES; EOS % 0.4 %; HEMATOCRIT 33.9 % (37-47); IG% 0.4 %; LYMPH % 10.8 %; LYMPH ABS # 1.72 K/uL (1.2-3.4); MEAN CELL VOLUME 82.7 fL (80-100); MEAN CORPUSCULAR HEMOGLOBIN 27.3 pg (25-34); MEAN PLATELET VOLUME 9.7 fL (7.4-10.4); MONO % 5.3 %; NEUT % 82.9 %; PLATELET COUNT 494 K/uL (130-400)
[2016-11-08 06:50] LABS: BUN/CREATININE RATIO 26.2 (10-20); CALCIUM 9.5 mg/dl (8.5-10.1); CREATININE 0.6 mg/dl (0.60-1.20); MAGNESIUM 2.1 mg/dl (1.8-2.4)
--- NOTE | 2016-11-08 07:52 | HISTORY & PHYSICAL EXAMINATION ---
DATE OF ADMISSION: 11/08/2016 PRIMARY CARE DOCTOR: Dr. Whitten. CHIEF COMPLAINT: Abdominal pain. HISTORY OF PRESENT ILLNESS: History obtained from the patient and records. Medical history significant for colon cancer status post surgery in July 2016; history of cor pulmonale; COPD; past tobacco, DM2, diet controlled, hypertension, currently not on meds, chronic anemia (baseline hemoglobin 10-11) history ESBL Escherichia coli UTI., Recent confinement last month for hypotension secondary to ileostomy output. The patient's antihypertensives were discontinued on discharge. Yesterday, the patient noted achy abdominal pain with nausea, emesis; no output from ostomy. No chest pain, no fever, no chills. At the Emergency Room, chest and abdomen x-ray showed partial small bowel obstruction. NG tube inserted in the Emergency Room. MEDICAL HISTORY: As above. Patient following at the [facility] wound care center for postsurgical wound abdomen and right knee wound. Improving postsurgical wound abdomen and closed R knee wound on last followup 10/31/2016. SURGERIES: Bowel surgery and oophorectomy. HOME MEDICATIONS: Include Pravachol, Zoloft, Ellipta, vitamin B12, ferrous sulfate, Flonase, levothyroxine, multivitamin, Zofran, Fosamax, Gaviscon, ProAir, vitamin C, Citracal, and Zyrtec. ALLERGIES: NO known drug allergies. FAMILY HISTORY: Colon cancer. PERSONAL AND SOCIAL HISTORY: Past tobacco abuse. No chronic intake of alcoholic beverages. Retired [employer] employee. REVIEW OF SYSTEMS: As per HPI, all other ROS negative. PHYSICAL EXAMINATION: VITAL SIGNS: Blood pressure was noted to be 137/80, pulse rate 90, RR 26, 98.6, and sats 90 on room air. GENERAL: Noted to be slightly uncomfortable, anxious, no resp distress. SKIN: pallor. HEENT: Pale palpable conjunctivae. Dry mucosa. NGT in place. NECK: No JVD. Supple. CHEST: Decreased breath sounds. HEART: Regular rate and rhythm. ABDOMEN: Distention, no overt tenderness, ostomy noted. EXTREMITIES: No edema. No tenderness NEUROLOGIC: No gross focality. LABS: Hemoglobin was noted to be 12.1, hematocrit 37, white cell count 16.9, and platelets 512. Sodium 135, potassium 4, chloride 101, CO2 24, BUN 18, creatinine 1.7, and glucose 139. Chest and abdomen XRAy as above. ASSESSMENT: 1. Partial bowel obstruction recent bowel surgery for colon cancer (07/2016) 2. Hypertension, stable off home blood pressure maintenance medicines 3. DM2, diet controlled, well controlled as of recent HgA1c of 5.5 10/20/2016; 4. chronic obstructive pulmonary disease/cor pulmonale/past tobacco abuse Pulmo-status at baseline 5. Chronic anemia, hemoglobin better than baseline, suspect hemoconcentration. 6. Past history is ESBL E. coli UTI PLAN: GMF Analgesia, antiemetics, bowel rest, IV fluids continue NGT decompression Surgery consult in the morning RE bowel obstruction (Patient known to Dr. Powers) DVT prophylaxis, Lovenox subQ. Full code. MTDD
[2016-11-08 08:13] VITALS: BP 126/75; PULSE 82; TEMP 36.8; O2SAT 96
[2016-11-08 08:16] VITALS: O2SAT 96
[2016-11-08] MEDS: FLUTICASONE PROPIONATE NA SPR 16 GM BTL NAE SCH (09:00)
--- NOTE | 2016-11-08 09:22 | Surgery Consultation ---
Consultation Date of Consultation: Nov 08, 2016. Attending Physician: Semaj Nowak MD History of Present Illness Myriam Méndez is a 71 year old woman with history of COPD, DM2, HTN who had an extended right hemicolectomy in July 2016 with end ileostomy and mucous fistula creation for colon cancer and a perforation. She presents now with abdominal pain, nausea and vomiting, and decreased ileostomy output. Patient states yesterday afternoon she noted her ostomy had no output for several hours. She then developed nausea with an episode of vomiting. She presented to the ED for evaluation. Abdominal XR were completed, which showed a partial small bowel obstruction. Since yesterday afternoon, her ostomy has had a little bit of thick output, still less than normal. An NGT was placed for decompression with improvement in nausea. Overall feeling better than when she first presented to the hospital. Denies recent fever, chills, headaches, dizziness, vision changes , chest pain, SOB, dysuria or urinary symptoms, pain / numbness / swelling / tingling in extremities. Past Medical/Surgical History Medical Problems: (1) Closed head injury Status: Acute (2) Dehydration Status: Acute (3) Dehydration Status: Acute (4) Fall Status: Acute (5) Hypothermia Status: Acute (6) Perforated viscus Status: Acute (7) Perforation of cecum Status: Acute (8) Pressure ulcer Status: Acute (9) Rhabdomyolysis Status: Acute (10) Septic shock Status: Acute (11) UTI (urinary tract infection) Status: Acute Family History Colon cancer SISTER SISTER Heart disease MOTHER Hypertension FATHER MOTHER Social History Smoking Status: Former Smoker Drug Use: none Marital Status: single Occupation Status: retired Allergies Coded Allergies: No Known Allergies (Unverified , 10/19/16) Home Medications Scheduled Albuterol Sulfate (Proair Respiclick), 2 PUFF INH QID Alendronate Sodium (Fosamax), 70 MG PO WK Ascorbic Acid (Vitamin C), 500 MG PO HS Calcium Citrate-Vitamin D (Citracal + D3 Maximum), 1 TAB PO DAILY Cetirizine Hcl (Zyrtec), 5 MG PO DAILY Cyanocobalamin (Vitamin B-12), 1,000 MCG PO DAILY Ferrous Sulfate (Kp Ferrous Sulfate), 1 TAB PO DAILY Fluticasone Propionate (Nasal) (Flonase Allergy Relief), 2 SPRAYS MARI DAILY Levothyroxine Sodium (Levothyroxine Sodium), 88 MCG PO DAILY Magnesium Chloride (Slow-Mag Tab), 64 MG PO BID Multivitamin (Multivitamin), 1 TAB PO QAM Pravastatin (Pravachol ), 20 MG PO DAILY Sertraline (Zoloft), 50 MG PO HS Umeclidinium-Vilanterol (Anoro Ellipta 62.5-25 Mcg/INH), 1 PUFF INH DAILY Scheduled PRN Aluminum Hydroxide-Mag Trisil (Gaviscon), 2 TABS PO QID PRN for GI Upset Ondansetron Hcl (Zofran), 4 MG PO Q6 PRN for Nausea Current Inpatient Medications Current Inpatient Medications Medications (Trade) Dose Ordered Sig/Kwabena Route Start Time Stop Time Status Last Admin Dose Admin Promethazine HCl 12.5 mg/Sodium Chloride 50.5 ml @ 204 mls/hr Q6H PRN IV 11/07/16 23:00 12/07/16 22:59 Enoxaparin Sodium (Lovenox Inj) 40 mg Q24H SQ 11/08/16 00:30 12/08/16 00:29 UNV Acetaminophen (Tylenol Tab) 650 mg Q4H PRN PO 11/08/16 00:30 12/08/16 00:29 Insulin Aspart (novoLOG ASPART) SLIDING SCALE If C... Q6 SC 11/08/16 06:00 12/08/16 05:59 Glucose (Glucose 40% Gel) 15-30 GRAMS 15 GRAMS... UD PRN PO 11/08/16 00:30 12/08/16 00:29 Glucose (Glucose Chew Tab) 4-8 Tablets 4 Tabl... UD PRN PO 11/08/16 00:30 12/08/16 00:29 Dextrose (Dextrose 50% 50ML Syringe) 25-50ML OF 50% DW IV FOR... UD PRN IV 11/08/16 00:30 12/08/16 00:29 Glucagon (Glucagon Inj) 1 mg UD PRN SQ 11/08/16 00:30 12/08/16 00:29 Tramadol HCl (Ultram Tab) not relieved ... Q6H PRN PO 11/08/16 00:30 12/08/16 00:29 Ketorolac Tromethamine (Toradol Inj) 15 mg Q6H PRN IV. 11/08/16 00:30 11/13/16 00:29 Hydromorphone HCl (Dilaudid Inj) 0.5 mg Q4H PRN IV 11/08/16 00:30 11/22/16 00:29 Ondansetron HCl (Zofran Inj) 4 mg Q6H PRN IV 11/08/16 00:30 12/08/16 00:29 11/08/16 05:37 4 MG Sodium Chloride 1,000 ml @ 75 mls/hr [id number] IV 11/08/16 00:30 12/08/16 00:29 11/08/16 01:29 75 MLS/HR Cetirizine HCl (zyrTEC TAB) 5 mg DAILY PO 11/08/16 09:00 12/08/16 08:59 Fluticasone Propionate (Flonase Nasal [place]) 2 sprays DAILY MARI 11/08/16 09:00 12/08/16 08:59 Levothyroxine Sodium (Synthroid Tab) 88 mcg DAILYBB PO 11/08/16 06:00 12/08/16 05:59 11/08/16 05:37 88 MCG Multivitamins (Multivitamin Tab) 1 tab QAM PO 11/08/16 09:00 12/08/16 08:59 Pravastatin Sodium (Pravachol Tab) 20 mg DAILY PO 11/08/16 09:00 12/08/16 08:59 Sertraline HCl (Zoloft Tab) 50 mg HS PO 11/08/16 21:00 12/08/16 20:59 Albuterol (Ventolin Hfa Inhaler) 2 puffs QID INH 11/08/16 09:00 12/08/16 08:59 Ferrous Sulfate (Feosol Tab) 325 mg DAILY PO 11/08/16 09:00 12/08/16 08:59 Senna/Docusate Sodium (Senokot S Tab) 1 tab DAILY PO 11/08/16 09:00 12/08/16 08:59 Polyethylene (Miralax Powder Packet) 17 gm DAILY PRN PO 11/08/16 00:30 12/08/16 00:29 Lorazepam 0.5 mg/ Syringe 1 ml @ 1 mls/min Q4H PRN IV 11/08/16 02:30 12/08/16 02:29 Review of Systems Constitutional: + fatigue, No fever, No chills Eyes: No worsening of vision, No eye pain Respiratory: No cough, No sputum, No shortness of breath Cardiovascular: No chest pain Abdomen: + pain, + nausea, + vomiting Genitourinary - Female: No dysuria Physical Exam Date Time Temp Pulse Resp B/P (MAP) Pulse Ox O2 Delivery O2 Flow Rate FiO2 11/08/16 08:16 96 Room Air 11/08/16 08:13 36.8 82 18 126/75 (92) 96 Room Air 11/08/16 00:45 Room Air 11/08/16 00:45 36.8 89 18 155/73 95 Room Air 11/08/16 00:25 91 16 165/94 92 11/07/16 23:40 91 16 165/94 92 Room Air 11/07/16 22:20 97 168/102 95 Room Air 11/07/16 20:17 36.6 93 20 137/80 93 Room Air General Appearance: WD/WN, no apparent distress Head: normocephalic, atraumatic Eyes: normal inspection Neck: supple Respiratory/Chest: lungs clear, normal breath sounds Abdomen/GI: normal bowel sounds, non tender, soft, + pertinent finding ( ileostomy pink, small amount of stool in bag; granulation tissue at umbilical incision site) Skin: normal color, warm/dry Laboratory Results Last 24 Hours Test 11/07/16 20:55 11/08/16 00:43 11/08/16 03:22 11/08/16 05:26 White Blood Count 16.93 K/uL 16.00 K/uL Red Blood Count 4.49 M/uL 4.10 M/uL Hemoglobin 12.1 g/dL 11.2 g/dL Hematocrit 37.7 % 33.9 % Mean Corpuscular Volume 84.0 fL 82.7 fL Mean Corpuscular Hemoglobin 26.9 pg 27.3 pg Mean Corpuscular Hemoglobin Concent 32.1 g/dl 33.0 g/dl Platelet Count 512 K/uL 494 K/uL Mean Platelet Volume 9.3 fL 9.7 fL Neutrophils (%) (Auto) 87.5 % 82.9 % Lymphocytes (%) (Auto) 8.6 % 10.8 % Monocytes (%) (Auto) 3.2 % 5.3 % Eosinophils (%) (Auto) 0.2 % 0.4 % Basophils (%) (Auto) 0.2 % 0.2 % Neutrophils # (Auto) 14.81 K/uL 13.28 K/uL Lymphocytes # (Auto) 1.45 K/uL 1.72 K/uL Monocytes # (Auto) 0.55 K/uL 0.85 K/uL Eosinophils # (Auto) 0.04 K/uL 0.06 K/uL Basophils # (Auto) 0.03 K/uL 0.03 K/uL RDW Standard Deviation 47.1 fL 46.6 fL RDW Coefficient of Variation 15.4 % 15.4 % Immature Granulocyte % (Auto) 0.3 % 0.4 % Immature Granulocyte # (Auto) 0.05 K/uL 0.06 K/uL Sodium Level 135 mmol/L 137 mmol/L Potassium Level 4.0 mmol/L 4.0 mmol/L Chloride Level 101 mmol/L 102 mmol/L Carbon Dioxide Level 24 mmol/L 27 mmol/L Anion Gap 10.0 mmol/L 8.0 mmol/L Blood Urea Nitrogen 18 mg/dl 16 mg/dl Creatinine 0.77 mg/dl 0.60 mg/dl Est Creatinine Clear Calc Drug Dose 64.5 ml/min 82.5 ml/min Estimated GFR () 90.7 107.0 Estimated GFR (Non- 78.2 92.4 BUN/Creatinine Ratio 23.0 26.2 Random Glucose 139 mg/dl 116 mg/dl Calcium Level 10.4 mg/dl 9.5 mg/dl Magnesium Level 1.6 mg/dl 2.1 mg/dl Total Bilirubin 0.3 mg/dl Direct Bilirubin < 0.1 mg/dl Aspartate Amino Transf (AST/SGOT) 19 U/L Alanine Aminotransferase (ALT/SGPT) 21 U/L Alkaline Phosphatase 55 U/L Total Protein 8.2 gm/dl Albumin 3.3 gm/dl Lipase 175 U/L Bedside Glucose 130 mg/dl Urine Color DK YELLOW Urine Appearance CLEAR Urine pH 5.0 Urine Specific [place] 1.025 Urine Protein TRACE Urine Glucose (UA) NEG Urine Ketones TRACE Urine Occult Blood NEG Urine Nitrite NEG Urine Bilirubin NEG Urine Urobilinogen NEG Urine Leukocyte Esterase SMALL Urine WBC (Auto) 10-30 /hpf Urine RBC (Auto) 0-4 /hpf Urine Hyaline Casts (Auto) 10-30 /lpf Urine Epithelial Cells (Auto) >30 /lpf Urine Bacteria (Auto) NEG Urine Crystals CALCIUM OXALATE Test 11/08/16 05:43 Bedside Glucose 115 mg/dl Assessment & Plan Myriam Méndez is a 71 year old woman with history of extended right 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 She presents now with signs and symptoms consistent with a partial small bowel obstruction. -No acute surgical intervention indicated at this time -Continue NPO / NGT decompression -IVF hydration, electrolyte repletion prn -Pain and nausea control as needed -Encourage ambulation / up to chair, NGT may be off suction for ambulation -Trend labs -Rest of care per primary team -Will continue to follow Kait Cotto MD 11/08/16
[2016-11-08] MEDS: UMECLIDINIUM-VILANTEROL (ANORO) INH SCH (09:46)
[2016-11-08] MEDS: ALBUTEROL HFA 8 GM INHALER INH SCH ×4 (09:46→21:26)
[2016-11-08] MEDS: DOCUSATE SODIUM/SENNA 50/8.6MG TAB PO SCH (09:47)
[2016-11-08] MEDS: PRAVASTATIN SOD 20 MG TAB PO SCH (09:47)
[2016-11-08] MEDS: FERROUS SULFATE 325 MG TAB PO SCH (09:47)
[2016-11-08] MEDS: CETIRIZINE HCL 10 MG TAB PO SCH (09:47)
[2016-11-08] MEDS: MULTIVITAMIN TAB PO SCH (09:47)
[2016-11-08 11:14] LABS: PROTHROMBIN TIME (PATIENT) 10.4 SECONDS (9.0-12.0)
[2016-11-08] MEDS: ENOXAPARIN 40 MG/0.4 ML SYR SQ SCH (13:21)
[2016-11-08 15:41] VITALS: BP 131/74; PULSE 85; TEMP 36.9; O2SAT 96
--- NOTE | 2016-11-08 18:24 | Progress Note ---
Internal Med Progress Note Date of Service: Nov 08, 2016. Provider Documentation: SUBJECTIVE: patient says abdominal pain improved since on ng tube mildly nauseous early but ok now emptied little stool today from colostomy bag afebrile no sob OBJECTIVE: Vital Signs-as noted below Exam: General-alert and awake. Not in distress ENT-normal hearing Neck-no neck masses Lungs-cta b/l no wheezing or crackles Heart-s1 and s2 heard regular rhythm no murmurs Abdomen-soft bowel sounds sluggish non tender no distension Extremities-no edema no erythema Neuro-alert and awake moves extremities Lab data as noted below. ASSESSMENT & PLAN: 1. Partial bowel obstruction recent bowel surgery for colon cancer (07/2016) on ng tube, npo, iv pain meds and antiemetics and fluids continue same for now surgery on board and appreciate inputs 2. Hypertension, stable off home blood pressure maintenance medicines will monitor. 3. DM2, diet controlled, well controlled as of recent HgA1c of 5.5 10/20/2016; will monitor. 4. chronic obstructive pulmonary disease/cor pulmonale/past tobacco abuse stable. 5. Chronic anemia, hemoglobin better than baseline, suspect hemoconcentration. 6. Past history is ESBL E. coli UTI f/u cx Dvt px Lovenox disposition to be determined Vital Signs: Date Time Temp Pulse Resp B/P (MAP) Pulse Ox O2 Delivery O2 Flow Rate FiO2 11/08/16 15:45 Room Air 11/08/16 15:41 36.9 85 20 131/74 (93) 96 Room Air 11/08/16 09:00 Room Air 11/08/16 08:16 96 Room Air 11/08/16 08:13 36.8 82 18 126/75 (92) 96 Room Air 11/08/16 00:45 Room Air 11/08/16 00:45 36.8 89 18 155/73 95 Room Air 11/08/16 00:25 91 16 165/94 92 11/07/16 23:40 91 16 165/94 92 Room Air 11/07/16 22:20 97 168/102 95 Room Air 11/07/16 20:17 36.6 93 20 137/80 93 Room Air Lab Results: Results Past 24 Hours Test 11/07/16 20:55 11/08/16 00:43 11/08/16 03:11/08/16 05:26 Range/Units White Blood Count 16.93 16.00 4.8-10.8 K/uL Red Blood Count 4.49 4.10 4.2-5.4 M/uL Hemoglobin 12.1 11.2 12.0-16.0 g/dL Hematocrit 37.7 33.9 37-47 % Mean Corpuscular Volume 84.0 82.7 80-100 fL Mean Corpuscular Hemoglobin 26.9 27.3 25-34 pg Mean Corpuscular Hemoglobin Concent 32.1 33.0 32-36 g/dl Platelet Count 512 494 130-400 K/uL Mean Platelet Volume 9.3 9.7 7.4-10.4 fL Neutrophils (%) (Auto) 87.5 82.9 % Lymphocytes (%) (Auto) 8.6 10.8 % Monocytes (%) (Auto) 3.2 5.3 % Eosinophils (%) (Auto) 0.2 0.4 % Basophils (%) (Auto) 0.2 0.2 % Neutrophils # (Auto) 14.81 13.28 1.4-6.5 K/uL Lymphocytes # (Auto) 1.45 1.72 1.2-3.4 K/uL Monocytes # (Auto) 0.55 0.85 0.11-0.59 K/uL Eosinophils # (Auto) 0.04 0.06 0-0.5 K/uL Basophils # (Auto) 0.03 0.03 0-0.2 K/uL RDW Standard Deviation 47.1 46.6 36.4-46.3 fL RDW Coefficient of Variation 15.4 15.4 11.5-14.5 % Immature Granulocyte % (Auto) 0.3 0.4 % Immature Granulocyte # (Auto) 0.05 0.06 0.00-0.02 K/uL Sodium Level 135 137 136-145 mmol/L Potassium Level 4.0 4.0 3.5-5.1 mmol/L Chloride Level 101 102 98-107 mmol/L Carbon Dioxide Level 24 27 21-32 mmol/L Anion Gap 10.0 8.0 3-11 mmol/L Blood Urea Nitrogen 18 16 7-18 mg/dl Creatinine 0.77 0.60 0.60-1.20 mg/dl Est Creatinine Clear Calc Drug Dose 64.5 82.5 ml/min Estimated GFR () 90.7 107.0 Estimated GFR (Non- 78.2 92.4 BUN/Creatinine Ratio 23.0 26.2 10-20 Random Glucose 139 116 70-99 mg/dl Calcium Level 10.4 9.5 8.5-10.1 mg/dl Magnesium Level 1.6 2.1 1.8-2.4 mg/dl Total Bilirubin 0.3 0.2-1 mg/dl Direct Bilirubin < 0.1 0-0.2 mg/dl Aspartate Amino Transf (AST/SGOT) 19 15-37 U/L Alanine Aminotransferase (ALT/SGPT) 21 12-78 U/L Alkaline Phosphatase 55 45-117 U/L Total Protein 8.2 6.4-8.2 gm/dl Albumin 3.3 3.4-5.0 gm/dl Lipase 175 73-393 U/L Bedside Glucose 130 70-90 mg/dl Urine Color DK YELLOW Urine Appearance CLEAR CLEAR Urine pH 5.0 4.5-7.5 Urine Specific [place] 1.025 1.000-1.030 Urine Protein TRACE NEG Urine Glucose (UA) NEG NEG Urine Ketones TRACE NEG Urine Occult Blood NEG NEG Urine Nitrite NEG NEG Urine Bilirubin NEG NEG Urine Urobilinogen NEG NEG Urine Leukocyte Esterase SMALL NEG Urine WBC (Auto) 10-30 0-5 /hpf Urine RBC (Auto) 0-4 0-4 /hpf Urine Hyaline Casts (Auto) 10-30 0-5 /lpf Urine Epithelial Cells (Auto) >30 0-5 /lpf Urine Bacteria (Auto) NEG NEG Urine Crystals CALCIUM OXALATE NONE PRSENT Test 11/08/16 05:43 11/08/16 10:54 11/08/16 11:52 Range/Units Bedside Glucose 115 112 70-90 mg/dl Prothrombin Time 10.4 9.0-12.0 SECONDS Prothromb Time International Ratio 1.0 0.9-1.1
[2016-11-08] MEDS: SERTRALINE HCL 50 MG TAB PO SCH (21:00)
[2016-11-08 23:03] VITALS: BP 135/74; PULSE 81; TEMP 36.6; O2SAT 93
[2016-11-09] MEDS: LEVOTHYROXINE 88 MCG TAB PO SCH (05:17)
[2016-11-09] MEDS: INSULIN ASPART 100 UNITS/ML 3 ML PEN SC SCH ×3 (06:00→18:00)
[2016-11-09 07:49] LABS: BUN/CREATININE RATIO 24.9 (10-20); CALCIUM 8.4 mg/dl (8.5-10.1); CREATININE 0.61 mg/dl (0.60-1.20); MAGNESIUM 1.8 mg/dl (1.8-2.4); POTASSIUM 3.5 mmol/L (3.5-5.1)
[2016-11-09 08:01] VITALS: BP 122/68; PULSE 76; TEMP 36.9; O2SAT 92
--- NOTE | 2016-11-09 08:02 | DIAGNOSTIC IMAGING REPORT ---
[facility] CLINICAL HISTORY: sob pain COMPARISON STUDY: 11/07/2016 FINDINGS: Improved exam. Diminished small bowel distention. Mild increase in fecal load within the colon. IMPRESSION: Improving bowel pattern. Mild residual ileus. The above report was generated using voice recognition software. It may contain grammatical, syntax or spelling errors. Electronically signed by: Дмитрий Milian M.D. 11/09/2016 8:01 AM Dictated Date/Time: 11/09/2016 8:00 AM
[2016-11-09 08:11] VITALS: O2SAT 92
[2016-11-09] MEDS: UMECLIDINIUM-VILANTEROL (ANORO) INH SCH (08:40)
[2016-11-09] MEDS: ALBUTEROL HFA 8 GM INHALER INH SCH ×4 (08:40→21:40)
[2016-11-09] MEDS: MULTIVITAMIN TAB PO SCH (08:41)
[2016-11-09] MEDS: CETIRIZINE HCL 10 MG TAB PO SCH (08:41)
[2016-11-09] MEDS: FERROUS SULFATE 325 MG TAB PO SCH (08:41)
[2016-11-09] MEDS: PRAVASTATIN SOD 20 MG TAB PO SCH (08:42)
[2016-11-09] MEDS: DOCUSATE SODIUM/SENNA 50/8.6MG TAB PO SCH (08:42)
[2016-11-09] MEDS: ENOXAPARIN 40 MG/0.4 ML SYR SQ SCH (08:44)
--- NOTE | 2016-11-09 08:46 | Surgery Progress Note ---
Surgery Progress Note Date of Service Nov 09, 2016. Subjective Patient examined at bedside this morning. Afebrile, vitals stable on room air overnight, no acute events. NGT remains in place with approximately 400ml bilious / green output in last 24h. Ileostomy function has been gradually increasing, approx 400ml liquid stool recorded in last 24h. Patient denies abdominal pain. Mild nausea reported yesterday afternoon, no vomiting. Currently feels well. Abdomen remains soft, non distended, non tender to palpation. Objective Vital Signs: Date Time Temp Pulse Resp B/P (MAP) Pulse Ox O2 Delivery O2 Flow Rate FiO2 11/09/16 08:11 92 Room Air 11/09/16 08:01 36.9 76 18 122/68 (86) 92 Room Air 11/09/16 07:25 Room Air 11/08/16 23:55 Room Air 11/08/16 23:03 36.6 81 14 135/74 (94) 93 Room Air 11/08/16 15:45 Room Air 11/08/16 15:41 36.9 85 20 131/74 (93) 96 Room Air 11/08/16 09:00 Room Air General Appearance: WD/WN, no apparent distress Head: normocephalic, atraumatic Neck: supple Respiratory/Chest: lungs clear, normal breath sounds Cardiovascular: regular rate, rhythm Abdomen: normal bowel sounds, non tender, non distended, soft, + pertinent finding (ostomy pink, healthy appearing; air and stool in appliance) Incision(s): findings (Umbilical incision with granulation tissue present, small amount of yellow fluid draining) Laboratory Results: Results Past 24 Hours Test 11/08/16 10:54 11/08/16 11:52 11/08/16 18:01 11/08/16 23:50 Range/Units Prothrombin Time 10.4 9.0-12.0 SECONDS Prothromb Time International Ratio 1.0 0.9-1.1 Bedside Glucose 112 98 96 70-90 mg/dl Test 11/09/16 05:55 11/09/16 06:27 Range/Units Bedside Glucose 84 70-90 mg/dl Sodium Level 143 136-145 mmol/L Potassium Level 3.5 3.5-5.1 mmol/L Chloride Level 107 98-107 mmol/L Carbon Dioxide Level 30 21-32 mmol/L Anion Gap 6.0 3-11 mmol/L Blood Urea Nitrogen 15 7-18 mg/dl Creatinine 0.61 0.60-1.20 mg/dl Est Creatinine Clear Calc Drug Dose 81.1 ml/min Estimated GFR () 106.5 Estimated GFR (Non- 91.9 BUN/Creatinine Ratio 24.9 10-20 Random Glucose 84 70-99 mg/dl Calcium Level 8.4 8.5-10.1 mg/dl Magnesium Level 1.8 1.8-2.4 mg/dl Microbiology Results 11/08/16 Urine Culture, Received Pending Imaging 11/09/16 KUB: FINDINGS: Improved exam. Diminished small bowel distention. Mild increase in fecal load within the colon. IMPRESSION: Improving bowel pattern. Mild residual ileus. Assessment & Plan Myriam Méndez is a 71 year old woman with history of extended right 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 She presents now with signs and symptoms consistent with a partial small bowel obstruction. -No acute surgical intervention indicated at this time -Continue NPO, NGT off suction - will check later this morning, possible removal if no nausea with NGT clamped -IVF hydration, electrolyte repletion prn -Pain and nausea control as needed -Encourage ambulation / up to chair -Trend labs -Rest of care per primary team -Will continue to follow Kait Cotto MD 11/09/16 Update 11:00am Patient examined at bedside after a few hours of NGT clamped. Doing very well. Denies any nausea, vomiting or abdominal pain. Would like NGT removed. NGT removed at bedside. OK for patient to trial clear liquids - instructed to back off if nausea develops. Encouraged ambulation. May decrease IVF when PO intake is adequate. Will continue to follow.
[2016-11-09] MEDS: FLUTICASONE PROPIONATE NA SPR 16 GM BTL NAE SCH (08:57)
[2016-11-09] MEDS: SODIUM CHLORIDE 0.9% 1000ML 1,000 ML IV SCH (10:50)
[2016-11-09] MEDS: NSS + 20MEQ KCL 1000ML 1,000 ML IV SCH ×2 (12:12→21:40)
[2016-11-09] MEDS ORDERED: NURSING VERBAL MED ORDER ONE (15:00)
[2016-11-09 15:25] VITALS: BP 110/66; PULSE 76; TEMP 37.2; O2SAT 94
--- NOTE | 2016-11-09 17:42 | Progress Note ---
Internal Med Progress Note Date of Service: Nov 09, 2016. Provider Documentation: SUBJECTIVE: ng tube clamped and doing ok says her colostomy working wll since last night no nausea afebrile OBJECTIVE: Vital Signs-as noted below Exam: General-alert and awake. Not in distress ENT-normal hearing Neck-no neck masses Lungs-cta b/l no wheezing or crackles Heart-s1 and s2 heard regular rhythm no murmurs Abdomen-soft bowel sounds sluggish non tender no distension Extremities-no edema no erythema Neuro-alert and awake moves extremities Lab data as noted below. ASSESSMENT & PLAN: 1. Partial bowel obstruction recent bowel surgery for colon cancer (07/2016) on ng tube, npo, iv pain meds and antiemetics and fluids kub today improving. mild ileu clamping ng tube and possible removal later surgery on board and appreciate inputs Stable conditions: 2. Hypertension, stable off home blood pressure maintenance medicines will monitor. 3. DM2, diet controlled, well controlled as of recent HgA1c of 5.5 10/20/2016; will monitor. 4. chronic obstructive pulmonary disease/cor pulmonale/past tobacco abuse stable. 5. Chronic anemia, hemoglobin better than baseline, suspect hemoconcentration. 6. Past history is ESBL E. coli UTI f/u cx Dvt px Lovenox disposition to be determined Vital Signs: Date Time Temp Pulse Resp B/P (MAP) Pulse Ox O2 Delivery O2 Flow Rate FiO2 11/09/16 15:30 Room Air 11/09/16 15:25 37.2 76 18 110/66 (81) 94 Room Air 11/09/16 08:11 92 Room Air 11/09/16 08:01 36.9 76 18 122/68 (86) 92 Room Air 11/09/16 07:25 Room Air 11/08/16 23:55 Room Air 11/08/16 23:03 36.6 81 14 135/74 (94) 93 Room Air Lab Results: Results Past 24 Hours Test 11/08/16 18:01 11/08/16 23:50 11/09/16 05:55 11/09/16 06:27 Range/Units Bedside Glucose 98 96 84 70-90 mg/dl Sodium Level 143 136-145 mmol/L Potassium Level 3.5 3.5-5.1 mmol/L Chloride Level 107 98-107 mmol/L Carbon Dioxide Level 30 21-32 mmol/L Anion Gap 6.0 3-11 mmol/L Blood Urea Nitrogen 15 7-18 mg/dl Creatinine 0.61 0.60-1.20 mg/dl Est Creatinine Clear Calc Drug Dose 81.1 ml/min Estimated GFR () 106.5 Estimated GFR (Non- 91.9 BUN/Creatinine Ratio 24.9 10-20 Random Glucose 84 70-99 mg/dl Calcium Level 8.4 8.5-10.1 mg/dl Magnesium Level 1.8 1.8-2.4 mg/dl Test 11/09/16 12:03 Range/Units Bedside Glucose 90 70-90 mg/dl Microbiology Results 11/08/16 Urine Culture, Received Pending
[2016-11-09] MEDS: SERTRALINE HCL 50 MG TAB PO SCH (21:40)
[2016-11-09 23:13] VITALS: BP 116/70; PULSE 79; TEMP 36.9; O2SAT 94
[2016-11-10] MEDS ORDERED: NURSING DECISION MEDICATION ORDER SCH (02:15)
[2016-11-10] MEDS: LEVOTHYROXINE 88 MCG TAB PO SCH (06:07)
[2016-11-10] MEDS: NSS + 20MEQ KCL 1000ML 1,000 ML IV SCH (06:07)
[2016-11-10 07:12] LABS: BUN/CREATININE RATIO 17.2 (10-20); CALCIUM 7.6 mg/dl (8.5-10.1); CREATININE 0.5 mg/dl (0.60-1.20); MAGNESIUM 1.6 mg/dl (1.8-2.4); POTASSIUM 3.3 mmol/L (3.5-5.1)
[2016-11-10 07:15] VITALS: BP 128/70; PULSE 89; TEMP 36.7; O2SAT 96
--- NOTE | 2016-11-10 07:52 | Surgery Progress Note ---
Surgery Progress Note Date of Service Nov 10, 2016. Subjective Patient examined at bedside this morning. Afebrile, vitals stable on room air, no acute events overnight. Feels well this morning. Ostomy now seems to have returned to normal function; air and stool in bag this morning on examination. Denies abdominal pain. Tolerating diet without N/V. Ambulating to bathroom and voiding without difficulty. Objective Vital Signs: Date Time Temp Pulse Resp B/P (MAP) Pulse Ox O2 Delivery O2 Flow Rate FiO2 11/10/16 07:18 Room Air 11/10/16 00:23 Room Air 11/09/16 23:13 36.9 79 16 116/70 (85) 94 Room Air 11/09/16 15:30 Room Air 11/09/16 15:25 37.2 76 18 110/66 (81) 94 Room Air 11/09/16 08:11 92 Room Air 11/09/16 08:01 36.9 76 18 122/68 (86) 92 Room Air General Appearance: WD/WN, no apparent distress Head: normocephalic, atraumatic Neck: supple Respiratory/Chest: lungs clear, normal breath sounds Cardiovascular: regular rate, rhythm Abdomen: normal bowel sounds, non tender, non distended, soft, + pertinent finding (ostomy pink, air and stool in bag) Laboratory Results: Results Past 24 Hours Test 11/09/16 12:03 11/09/16 19:31 11/09/16 21:02 11/10/16 05:50 Range/Units Bedside Glucose 90 126 95 70-90 mg/dl Sodium Level 141 136-145 mmol/L Potassium Level 3.3 3.5-5.1 mmol/L Chloride Level 109 98-107 mmol/L Carbon Dioxide Level 26 21-32 mmol/L Anion Gap 6.0 3-11 mmol/L Blood Urea Nitrogen 9 7-18 mg/dl Creatinine 0.50 0.60-1.20 mg/dl Est Creatinine Clear Calc Drug Dose 99.0 ml/min Estimated GFR () 113.7 Estimated GFR (Non- 98.1 BUN/Creatinine Ratio 17.2 10-20 Random Glucose 80 70-99 mg/dl Calcium Level 7.6 8.5-10.1 mg/dl Magnesium Level 1.6 1.8-2.4 mg/dl Assessment & Plan Myriam Méndez is a 71 year old woman with history of extended right 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 She presents now with signs and symptoms consistent with a partial small bowel obstruction - now resolving. -No acute surgical intervention indicated at this time -Normal diet as tolerated -Encourage ambulation / up to chair -Rest of care per primary team -General Surgery will sign off. Please call with any further concerns or questions. Kait Cotto MD 11/10/16
[2016-11-10] MEDS: CETIRIZINE HCL 10 MG TAB PO SCH (08:18)
[2016-11-10] MEDS: FLUTICASONE PROPIONATE NA SPR 16 GM BTL NAE SCH (08:18)
[2016-11-10] MEDS: ALBUTEROL HFA 8 GM INHALER INH SCH ×4 (08:18→21:17)
[2016-11-10] MEDS: FERROUS SULFATE 325 MG TAB PO SCH (08:18)
[2016-11-10] MEDS: UMECLIDINIUM-VILANTEROL (ANORO) INH SCH (08:18)
[2016-11-10] MEDS: DOCUSATE SODIUM/SENNA 50/8.6MG TAB PO SCH (08:19)
[2016-11-10] MEDS: PRAVASTATIN SOD 20 MG TAB PO SCH (08:19)
[2016-11-10] MEDS: MULTIVITAMIN TAB PO SCH (08:19)
[2016-11-10] MEDS: INSULIN ASPART 100 UNITS/ML 3 ML PEN SC SCH ×4 (09:29→21:00)
[2016-11-10] MEDS: ENOXAPARIN 40 MG/0.4 ML SYR SQ SCH (09:30)
[2016-11-10] MEDS ORDERED: NURSING VERBAL MED ORDER ONE (15:15)
[2016-11-10 15:40] VITALS: O2SAT 96
[2016-11-10 16:31] VITALS: BP 116/69; PULSE 72; TEMP 36.6; O2SAT 97
--- NOTE | 2016-11-10 18:57 | Progress Note ---
Internal Med Progress Note Date of Service: Nov 10, 2016. Provider Documentation: SUBJECTIVE: Off of ng tube tolerating soft diet no nausea or abdominal pain colostomy working fine wants to stay one more day to make sure it doesn't recur. OBJECTIVE: Vital Signs-as noted below Exam: General-alert and awake. Not in distress ENT-normal hearing Neck-no neck masses Lungs-cta b/l no wheezing or crackles Heart-s1 and s2 heard regular rhythm no murmurs Abdomen-soft bowel sounds sluggish non tender no distension Extremities-no edema no erythema Neuro-alert and awake moves extremities Lab data as noted below. ASSESSMENT & PLAN: 1. Partial bowel obstruction recent bowel surgery for colon cancer (07/2016) on ng tube, npo, iv pain meds and antiemetics and fluids improved tolerating sot diet surgery signed off plan to d./c in am Stable conditions: 2. Hypertension, stable off home blood pressure maintenance medicines will monitor. 3. DM2, diet controlled, well controlled as of recent HgA1c of 5.5 10/20/2016; will monitor. 4. chronic obstructive pulmonary disease/cor pulmonale/past tobacco abuse stable. 5. Chronic anemia, hemoglobin better than baseline, suspect hemoconcentration. 6. Past history is ESBL E. coli UTI f/u cx Dvt px Lovenox disposition possible d/c in am Vital Signs: Date Time Temp Pulse Resp B/P (MAP) Pulse Ox O2 Delivery O2 Flow Rate FiO2 11/10/16 16:31 36.6 72 16 116/69 (85) 97 Room Air 11/10/16 07:18 Room Air 11/10/16 07:15 36.7 89 16 128/70 (89) 96 Room Air 11/10/16 00:23 Room Air 11/09/16 23:13 36.9 79 16 116/70 (85) 94 Room Air Lab Results: Results Past 24 Hours Test 11/09/16 19:31 11/09/16 21:02 11/10/16 05:50 11/10/16 09:25 Range/Units Bedside Glucose 126 95 102 70-90 mg/dl Sodium Level 141 136-145 mmol/L Potassium Level 3.3 3.5-5.1 mmol/L Chloride Level 109 98-107 mmol/L Carbon Dioxide Level 26 21-32 mmol/L Anion Gap 6.0 3-11 mmol/L Blood Urea Nitrogen 9 7-18 mg/dl Creatinine 0.50 0.60-1.20 mg/dl Est Creatinine Clear Calc Drug Dose 99.0 ml/min Estimated GFR () 113.7 Estimated GFR (Non- 98.1 BUN/Creatinine Ratio 17.2 10-20 Random Glucose 80 70-99 mg/dl Calcium Level 7.6 8.5-10.1 mg/dl Magnesium Level 1.6 1.8-2.4 mg/dl Test 11/10/16 11:52 11/10/16 17:06 Range/Units Bedside Glucose 85 92 70-90 mg/dl
[2016-11-10] MEDS: SERTRALINE HCL 50 MG TAB PO SCH (21:18)
[2016-11-10 23:05] VITALS: BP 118/73; PULSE 74; TEMP 36.7; O2SAT 96
[2016-11-11] MEDS: LEVOTHYROXINE 88 MCG TAB PO SCH (05:33)
[2016-11-11 06:04] LABS: BASO % 0.5 %; BASO ABS # 0.05 K/uL (0-0.2); COMPLETE YES; EOS % 3.5 %; HEMATOCRIT 31.1 % (37-47); IG% 0.4 %; LYMPH % 21.4 %; LYMPH ABS # 2.35 K/uL (1.2-3.4); MEAN CELL VOLUME 85.9 fL (80-100); MEAN CORPUSCULAR HEMOGLOBIN 27.1 pg (25-34); MEAN CORPUSCULAR HGB CONC 31.5 g/dl (32-36); MEAN PLATELET VOLUME 9.6 fL (7.4-10.4); MONO % 6.5 %; NEUT % 67.7 %; PLATELET COUNT 427 K/uL (130-400); RED BLOOD COUNT 3.62 M/uL (4.2-5.4)
[2016-11-11 06:37] LABS: BUN/CREATININE RATIO 17.5 (10-20); CALCIUM 7.7 mg/dl (8.5-10.1); CREATININE 0.67 mg/dl (0.60-1.20); MAGNESIUM 1.5 mg/dl (1.8-2.4); POTASSIUM 3.6 mmol/L (3.5-5.1)
[2016-11-11 07:13] VITALS: BP 126/72; PULSE 67; TEMP 36.9; O2SAT 95
[2016-11-11] MEDS ORDERED: MAGNESIUM SULFATE 1GM / D5W 1 GM in PREMIXED IN D5W 100 ML IV ONE (07:30)
[2016-11-11] MEDS: INSULIN ASPART 100 UNITS/ML 3 ML PEN SC SCH ×4 (08:00→21:00)
[2016-11-11] MEDS: PRAVASTATIN SOD 20 MG TAB PO SCH (08:05)
[2016-11-11] MEDS: FERROUS SULFATE 325 MG TAB PO SCH (08:05)
[2016-11-11] MEDS: DOCUSATE SODIUM/SENNA 50/8.6MG TAB PO SCH (08:05)
[2016-11-11] MEDS: MULTIVITAMIN TAB PO SCH (08:05)
[2016-11-11] MEDS: UMECLIDINIUM-VILANTEROL (ANORO) INH SCH (08:06)
[2016-11-11] MEDS: CETIRIZINE HCL 10 MG TAB PO SCH (08:06)
[2016-11-11] MEDS: ALBUTEROL HFA 8 GM INHALER INH SCH ×4 (08:07→22:07)
[2016-11-11] MEDS: FLUTICASONE PROPIONATE NA SPR 16 GM BTL NAE SCH (08:07)
--- NOTE | 2016-11-11 10:38 | Surgery Progress Note ---
Surgery Progress Note Date of Service Nov 11, 2016. Subjective called to evaluate "hole" below stoma- under wafer Objective Vital Signs: Date Time Temp Pulse Resp B/P (MAP) Pulse Ox O2 Delivery O2 Flow Rate FiO2 11/11/16 07:45 Room Air 11/11/16 07:13 36.9 67 18 126/72 (90) 95 Room Air 11/10/16 23:05 Room Air 11/10/16 23:05 36.7 74 18 118/73 (88) 96 Room Air 11/10/16 16:31 36.6 72 16 116/69 (85) 97 Room Air 11/10/16 15:40 96 Room Air Abdomen: + pertinent finding Laboratory Results: Results Past 24 Hours Test 11/10/16 11:52 11/10/16 17:06 11/10/16 21:03 11/11/16 05:28 Range/Units Bedside Glucose 85 92 95 70-90 mg/dl White Blood Count 11.00 4.8-10.8 K/uL Red Blood Count 3.62 4.2-5.4 M/uL Hemoglobin 9.8 12.0-16.0 g/dL Hematocrit 31.1 37-47 % Mean Corpuscular Volume 85.9 80-100 fL Mean Corpuscular Hemoglobin 27.1 25-34 pg Mean Corpuscular Hemoglobin Concent 31.5 32-36 g/dl Platelet Count 427 130-400 K/uL Mean Platelet Volume 9.6 7.4-10.4 fL Neutrophils (%) (Auto) 67.7 % Lymphocytes (%) (Auto) 21.4 % Monocytes (%) (Auto) 6.5 % Eosinophils (%) (Auto) 3.5 % Basophils (%) (Auto) 0.5 % Neutrophils # (Auto) 7.47 1.4-6.5 K/uL Lymphocytes # (Auto) 2.35 1.2-3.4 K/uL Monocytes # (Auto) 0.71 0.11-0.59 K/uL Eosinophils # (Auto) 0.38 0-0.5 K/uL Basophils # (Auto) 0.05 0-0.2 K/uL RDW Standard Deviation 48.3 36.4-46.3 fL RDW Coefficient of Variation 15.4 11.5-14.5 % Immature Granulocyte % (Auto) 0.4 % Immature Granulocyte # (Auto) 0.04 0.00-0.02 K/uL Sodium Level 141 136-145 mmol/L Potassium Level 3.6 3.5-5.1 mmol/L Chloride Level 109 98-107 mmol/L Carbon Dioxide Level 23 21-32 mmol/L Anion Gap 9.0 3-11 mmol/L Blood Urea Nitrogen 12 7-18 mg/dl Creatinine 0.67 0.60-1.20 mg/dl Est Creatinine Clear Calc Drug Dose 73.9 ml/min Estimated GFR () 103.2 Estimated GFR (Non- 89.1 BUN/Creatinine Ratio 17.5 10-20 Random Glucose 89 70-99 mg/dl Calcium Level 7.7 8.5-10.1 mg/dl Magnesium Level 1.5 1.8-2.4 mg/dl Test 11/11/16 08:01 Range/Units Bedside Glucose 83 70-90 mg/dl pt has purulent draining sinus tract below stoma- 1 cm diameter probed with Q tip- goes deep , cephalad and medial to stoma Assessment & Plan 11/11/16- will apply aquacel to sinus tract for now and try to adjust stoma appliance- no stoma nurse this weekend or wound care nurse- consider sinogram Mon/Tue- doubt fistula
[2016-11-11] MEDS: ENOXAPARIN 40 MG/0.4 ML SYR SQ SCH (10:57)
[2016-11-11 15:10] VITALS: BP 116/70; PULSE 78; TEMP 36.6; O2SAT 96
--- NOTE | 2016-11-11 19:09 | Progress Note ---
Internal Med Progress Note Date of Service: Nov 11, 2016. Provider Documentation: SUBJECTIVE: tolerating soft diet no nausea or abdominal pain colostomy working fine question of fistula as per surgery ambulating fine OBJECTIVE: Vital Signs-as noted below Exam: General-alert and awake. Not in distress ENT-normal hearing Neck-no neck masses Lungs-cta b/l no wheezing or crackles Heart-s1 and s2 heard regular rhythm no murmurs Abdomen-soft bowel sounds sluggish non tender no distension s/p colostomy. wound in abdomen Extremities-no edema no erythema Neuro-alert and awake moves extremities Lab data as noted below. ASSESSMENT & PLAN: 1. Partial bowel obstruction recent bowel surgery for colon cancer (07/2016) on ng tube, npo, iv pain meds and antiemetics and fluids improved tolerating sot diet sinus tract below colostomy?surgery recommends sinogram Mon/Tue for posible fistula Stable conditions: 2. Hypertension, stable off home blood pressure maintenance medicines will monitor. 3. DM2, diet controlled, well controlled as of recent HgA1c of 5.5 10/20/2016; will monitor. 4. chronic obstructive pulmonary disease/cor pulmonale/past tobacco abuse stable. 5. Chronic anemia, hemoglobin better than baseline, suspect hemoconcentration. 6. Past history is ESBL E. coli UTI f/u cx Dvt px Lovenox disposition to be determined Vital Signs: Date Time Temp Pulse Resp B/P (MAP) Pulse Ox O2 Delivery O2 Flow Rate FiO2 11/11/16 16:30 Room Air 11/11/16 15:10 36.6 78 18 116/70 (85) 96 Room Air 11/11/16 07:45 Room Air 11/11/16 07:13 36.9 67 18 126/72 (90) 95 Room Air 11/10/16 23:05 Room Air 11/10/16 23:05 36.7 74 18 118/73 (88) 96 Room Air Lab Results: Results Past 24 Hours Test 11/10/16 21:03 11/11/16 05:28 11/11/16 08:01 11/11/16 12:00 Range/Units Bedside Glucose 95 83 87 70-90 mg/dl White Blood Count 11.00 4.8-10.8 K/uL Red Blood Count 3.62 4.2-5.4 M/uL Hemoglobin 9.8 12.0-16.0 g/dL Hematocrit 31.1 37-47 % Mean Corpuscular Volume 85.9 80-100 fL Mean Corpuscular Hemoglobin 27.1 25-34 pg Mean Corpuscular Hemoglobin Concent 31.5 32-36 g/dl Platelet Count 427 130-400 K/uL Mean Platelet Volume 9.6 7.4-10.4 fL Neutrophils (%) (Auto) 67.7 % Lymphocytes (%) (Auto) 21.4 % Monocytes (%) (Auto) 6.5 % Eosinophils (%) (Auto) 3.5 % Basophils (%) (Auto) 0.5 % Neutrophils # (Auto) 7.47 1.4-6.5 K/uL Lymphocytes # (Auto) 2.35 1.2-3.4 K/uL Monocytes # (Auto) 0.71 0.11-0.59 K/uL Eosinophils # (Auto) 0.38 0-0.5 K/uL Basophils # (Auto) 0.05 0-0.2 K/uL RDW Standard Deviation 48.3 36.4-46.3 fL RDW Coefficient of Variation 15.4 11.5-14.5 % Immature Granulocyte % (Auto) 0.4 % Immature Granulocyte # (Auto) 0.04 0.00-0.02 K/uL Sodium Level 141 136-145 mmol/L Potassium Level 3.6 3.5-5.1 mmol/L Chloride Level 109 98-107 mmol/L Carbon Dioxide Level 23 21-32 mmol/L Anion Gap 9.0 3-11 mmol/L Blood Urea Nitrogen 12 7-18 mg/dl Creatinine 0.67 0.60-1.20 mg/dl Est Creatinine Clear Calc Drug Dose 73.9 ml/min Estimated GFR () 103.2 Estimated GFR (Non- 89.1 BUN/Creatinine Ratio 17.5 10-20 Random Glucose 89 70-99 mg/dl Calcium Level 7.7 8.5-10.1 mg/dl Magnesium Level 1.5 1.8-2.4 mg/dl Test 11/11/16 17:02 Range/Units Bedside Glucose 98 70-90 mg/dl
[2016-11-11] MEDS: SERTRALINE HCL 50 MG TAB PO SCH (22:07)
[2016-11-11 22:53] VITALS: BP 121/70; PULSE 76; TEMP 36.9; O2SAT 96
[2016-11-12] MEDS: LEVOTHYROXINE 88 MCG TAB PO SCH (05:48)
[2016-11-12 06:58] VITALS: BP 101/62; PULSE 66; TEMP 36.9; O2SAT 93
[2016-11-12] MEDS: INSULIN ASPART 100 UNITS/ML 3 ML PEN SC SCH ×4 (08:00→21:00)
[2016-11-12] MEDS: DOCUSATE SODIUM/SENNA 50/8.6MG TAB PO SCH (09:00)
[2016-11-12] MEDS: UMECLIDINIUM-VILANTEROL (ANORO) INH SCH (09:05)
[2016-11-12] MEDS: FLUTICASONE PROPIONATE NA SPR 16 GM BTL NAE SCH (09:06)
[2016-11-12] MEDS: ALBUTEROL HFA 8 GM INHALER INH SCH ×4 (09:06→21:13)
[2016-11-12] MEDS: MAGNESIUM OXIDE 400 MG TAB PO SCH (09:07)
[2016-11-12] MEDS: PRAVASTATIN SOD 20 MG TAB PO SCH (09:08)
[2016-11-12] MEDS: FERROUS SULFATE 325 MG TAB PO SCH (09:08)
[2016-11-12] MEDS: CETIRIZINE HCL 10 MG TAB PO SCH (09:09)
[2016-11-12] MEDS: ENOXAPARIN 40 MG/0.4 ML SYR SQ SCH (09:09)
[2016-11-12] MEDS: MULTIVITAMIN TAB PO SCH (09:09)
[2016-11-12 15:00] VITALS: BP 124/75; PULSE 76; TEMP 36.8; O2SAT 96
--- NOTE | 2016-11-12 18:27 | Progress Note ---
Internal Med Progress Note Date of Service: Nov 12, 2016. Provider Documentation: SUBJECTIVE: tolerating soft diet ok resting comfortably ambulating fine no abdominal pain colostomy working ok OBJECTIVE: Vital Signs-as noted below Exam: General-alert and awake. Not in distress ENT-normal hearing Neck-no neck masses Lungs-cta b/l no wheezing or crackles Heart-s1 and s2 heard regular rhythm no murmurs Abdomen-soft bowel sounds sluggish non tender no distension s/p colostomy. wound in abdomen Extremities-no edema no erythema Neuro-alert and awake moves extremities Lab data as noted below. ASSESSMENT & PLAN: 1. Partial bowel obstruction recent bowel surgery for colon cancer (07/2016) was on ng tube, npo, iv pain meds and antiemetics and fluids improved off of ng tube tolerating soft diet stopped fluids sinus tract below colostomy?surgery recommends sinogram Mon/Tue for possible fistula will change to regular diet 2. Hypertension, stable off of blood pressure maintenance medicines will monitor. 3. DM2, diet controlled, well controlled as of recent HgA1c of 5.5 10/20/2016; will monitor.98/86/85/90 4. chronic obstructive pulmonary disease/cor pulmonale/past tobacco abuse stable. 5. Chronic anemia, will f/.u labs 6. Past history is ESBL E. coli UTI Dvt px Lovenox disposition to be determined expect to d/c home and followup with pcp Vital Signs: Date Time Temp Pulse Resp B/P (MAP) Pulse Ox O2 Delivery O2 Flow Rate FiO2 11/12/16 15:00 36.8 76 18 124/75 (91) 96 Room Air 11/12/16 09:00 Room Air 11/12/16 06:58 36.9 66 16 101/62 (75) 93 Room Air 11/12/16 00:30 Room Air 11/11/16 22:53 36.9 76 16 121/70 (87) 96 Room Air Lab Results: Results Past 24 Hours Test 11/11/16 21:00 11/12/16 08:06 11/12/16 12:20 11/12/16 16:44 Range/Units Bedside Glucose 98 86 85 90 70-90 mg/dl
[2016-11-12] MEDS: SERTRALINE HCL 50 MG TAB PO SCH (21:13)
[2016-11-12 22:43] VITALS: BP 125/75; PULSE 77; TEMP 36.8; O2SAT 97
[2016-11-13] MEDS: LEVOTHYROXINE 88 MCG TAB PO SCH (05:20)
[2016-11-13 06:57] VITALS: BP 109/72; PULSE 71; TEMP 37; O2SAT 94
[2016-11-13] MEDS: INSULIN ASPART 100 UNITS/ML 3 ML PEN SC SCH ×3 (08:39→17:54)
[2016-11-13] MEDS: FERROUS SULFATE 325 MG TAB PO SCH (08:40)
[2016-11-13] MEDS: DOCUSATE SODIUM/SENNA 50/8.6MG TAB PO SCH (08:41)
[2016-11-13] MEDS: MAGNESIUM OXIDE 400 MG TAB PO SCH (08:41)
[2016-11-13] MEDS: CETIRIZINE HCL 10 MG TAB PO SCH (08:41)
[2016-11-13] MEDS: PRAVASTATIN SOD 20 MG TAB PO SCH (08:41)
[2016-11-13] MEDS: MULTIVITAMIN TAB PO SCH (08:42)
[2016-11-13] MEDS: UMECLIDINIUM-VILANTEROL (ANORO) INH SCH (08:44)
[2016-11-13] MEDS: FLUTICASONE PROPIONATE NA SPR 16 GM BTL NAE SCH (08:44)
[2016-11-13] MEDS: ALBUTEROL HFA 8 GM INHALER INH SCH ×3 (08:44→17:44)
[2016-11-13] MEDS: ENOXAPARIN 40 MG/0.4 ML SYR SQ SCH (10:16)
[2016-11-13 15:00] VITALS: BP 102/63; PULSE 70; TEMP 36.8; O2SAT 95
--- NOTE | 2016-11-13 16:56 | Surgery Progress Note ---
Surgery Progress Note Date of Service Nov 13, 2016. Subjective Patient examined at bedside. Afebrile, vitals stable on room air, no acute events / 24h. Feels great. Tolerating diet without difficulty. Ostomy functioning normally, 850ml recorded output / 24h. Seen by wound / ostomy nurse today, stoma pouched; small opening inferior to ostomy with dressing over , minimal drainage appreciated. Objective Vital Signs: Date Time Temp Pulse Resp B/P (MAP) Pulse Ox O2 Delivery O2 Flow Rate FiO2 11/13/16 15:00 36.8 70 20 102/63 (76) 95 Room Air 11/13/16 08:15 Room Air 11/13/16 06:57 37.0 71 18 109/72 (84) 94 Room Air 11/12/16 23:30 Room Air 11/12/16 22:43 36.8 77 16 125/75 (92) 97 Room Air General Appearance: WD/WN, no apparent distress Head: normocephalic, atraumatic Neck: supple Respiratory/Chest: normal breath sounds Cardiovascular: regular rate, rhythm Abdomen: non tender, non distended, soft, + pertinent finding (ostomy pink, air and stool in bag, ostomy appliance intact without leaks. Small opening appreciated inferior to ostomy with small amount of purulent drainage appreciated.) Laboratory Results: Results Past 24 Hours Test 11/12/16 20:37 11/13/16 07:52 11/13/16 11:54 Range/Units Bedside Glucose 119 84 78 70-90 mg/dl Assessment & Plan Myriam Méndez is a 71 year old woman with history of extended right 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 She was admitted for signs and symptoms consistent with a partial small bowel obstruction - now resolved. -No acute surgical intervention indicated at this time -Continue ostomy pouching and wound care per wound team recommendations -Normal diet as tolerated -Encourage ambulation / up to chair -Rest of care per primary team -OK to discharge from surgical perspective. Kait Cotto MD 11/13/16
--- NOTE | 2016-11-13 17:25 | Progress Note ---
Medicine Progress Note Date & Time of Visit: Nov 13, 2016 at 17:25 . Subjective Doing well. No fever. No chest pain, cough, shortness of breath. No abdominal pain. No nausea or vomiting. Good stool output via ostomy. . Objective Last 8 Hrs Date Time Temp Pulse Resp B/P (MAP) Pulse Ox O2 Delivery O2 Flow Rate FiO2 11/13/16 15:00 36.8 70 20 102/63 (76) 95 Room Air Physical Exam: General- no distress Eyes- anicteric Lungs- clear Heart- regular Abdomen- normal bowel sounds, soft, nondistended; right-sided ostomy Extremities- no pretibial edema or calf tenderness Neuro- alert, oriented . Laboratory Results: Last 24 Hours Test 11/12/16 20:37 11/13/16 07:52 11/13/16 11:54 Bedside Glucose 119 mg/dl 84 mg/dl 78 mg/dl Assessment & Plan PARTIAL BOWEL OBSTRUCTION Resolved. Tolerating a low fiber diet. HISTORY HYPERTENSION Blood pressure stable without antihypertensive medications. COPD Stable. DM TYPE 2 Well-controlled. Hemoglobin A1c 5.5. COLON CA Presented with bowel perforation secondary to underlying carcinoma. Follow-up management per General Surgery and Hematology / Oncology. VTE PROPHYLAXIS SQ enoxaparin. Ambulate. DISPOSITION Discharge to home. Internal Medicine follow-up with Dr. Ghazala Whitten. Surgical follow-up with Dr. Powers. . Current Inpatient Medications: Current Inpatient Medications Medications (Trade) Dose Ordered Sig/Kwabena Route Start Time Stop Time Status Last Admin Dose Admin Promethazine HCl 12.5 mg/Sodium Chloride 50.5 ml @ 204 mls/hr Q6H PRN IV 11/07/16 23:00 12/07/16 22:59 Enoxaparin Sodium (Lovenox Inj) 40 mg Q24H SQ 11/08/16 10:00 12/08/16 09:59 11/13/16 10:16 40 MG Acetaminophen (Tylenol Tab) 650 mg Q4H PRN PO 11/08/16 00:30 12/08/16 00:29 Glucose (Glucose 40% Gel) 15-30 GRAMS 15 GRAMS... UD PRN PO 11/08/16 00:30 12/08/16 00:29 Glucose (Glucose Chew Tab) 4-8 Tablets 4 Tabl... UD PRN PO 11/08/16 00:30 12/08/16 00:29 Dextrose (Dextrose 50% 50ML Syringe) 25-50ML OF 50% DW IV FOR... UD PRN IV 11/08/16 00:30 12/08/16 00:29 Glucagon (Glucagon Inj) 1 mg UD PRN SQ 11/08/16 00:30 12/08/16 00:29 Tramadol HCl (Ultram Tab) not relieved ... Q6H PRN PO 11/08/16 00:30 12/08/16 00:29 Hydromorphone HCl (Dilaudid Inj) 0.5 mg Q4H PRN IV 11/08/16 00:30 11/22/16 00:29 Ondansetron HCl (Zofran Inj) 4 mg Q6H PRN IV 11/08/16 00:30 12/08/16 00:29 11/08/16 05:37 4 MG Cetirizine HCl (zyrTEC TAB) 5 mg DAILY PO 11/08/16 09:00 12/08/16 08:59 11/13/16 08:41 5 MG Fluticasone Propionate (Flonase Nasal [place]) 2 sprays DAILY MARI 11/08/16 09:00 12/08/16 08:59 11/13/16 08:44 2 SPRAYS Levothyroxine Sodium (Synthroid Tab) 88 mcg DAILYBB PO 11/08/16 06:00 12/08/16 05:59 11/13/16 05:20 88 MCG Multivitamins (Multivitamin Tab) 1 tab QAM PO 11/08/16 09:00 12/08/16 08:59 11/13/16 08:42 1 TAB Pravastatin Sodium (Pravachol Tab) 20 mg DAILY PO 11/08/16 09:00 12/08/16 08:59 11/13/16 08:41 20 MG Sertraline HCl (Zoloft Tab) 50 mg HS PO 11/08/16 21:00 12/08/16 20:59 11/12/16 21:13 50 MG Albuterol (Ventolin Hfa Inhaler) 2 puffs QID INH 11/08/16 09:00 12/08/16 08:59 11/13/16 13:36 2 PUFFS Ferrous Sulfate (Feosol Tab) 325 mg DAILY PO 11/08/16 09:00 12/08/16 08:59 11/13/16 08:40 325 MG Senna/Docusate Sodium (Senokot S Tab) 1 tab DAILY PO 11/08/16 09:00 12/08/16 08:59 11/13/16 08:41 1 TAB Polyethylene (Miralax Powder Packet) 17 gm DAILY PRN PO 11/08/16 00:30 12/08/16 00:29 Lorazepam 0.5 mg/ Syringe 1 ml @ 1 mls/min Q4H PRN IV 11/08/16 02:30 12/08/16 02:29 Insulin Aspart (novoLOG ASPART) SLIDING SCALE If C... ACHS SC 11/10/16 08:00 12/10/16 07:59 Magnesium Oxide (Mag-Ox Tab) 400 mg QAM PO 11/12/16 09:00 12/12/16 08:59 11/13/16 08:41 400 MG
[2016-11-13] MEDS ORDERED: SENN8.6T7 PO (17:27)
--- NOTE | 2016-11-13 17:36 | Discharge Instructions ---
Discharge Instructions Date of Service Nov 13, 2016. Admission Reason for Admission: partial bowel blockage . Discharge Discharge Diagnosis / Problem: partial bowel blockage Discharge Goals Goal(s): Decrease discomfort, Improve function, Improve disease control Activity Recommendations Activity Limitations: resume your previous activity . Instructions / Follow-Up Instructions / Follow-Up FOLLOW-UP APPOINTMENTS: PULMONARY MEDICINE 11/14/2016 10:15 AM [facility] 11/16/2016 11:40 AM Ghazala Whitten MD General Internal Medicine [facility] Office will contact you with appointment. GENERAL SURGERY 12/01/2016 1:45 PM Дмитрий Powers MD General Surgery, [facility] MEDICATION CHANGES: Start taking Senokot-S once a day to keep your bowels moving regularly. May skip dose if you are having loose stools. Stop alendronate (Fosamax). OTHER INSTRUCTIONS: Seek medical attention if you have: * temperature above 101 * chest pain or trouble breathing * abdominal pain, nausea, vomiting * diarrhea, dark stools or bloody stools * any unanswered questions or concerns Call 911 if symptoms are severe. Call if you have any questions or problems. My cell # is [phone]. You can also reach a [facility] hospitalist on duty at [facility] 24 hours a day by calling [phone]. Please take good care of yourself. Daniel García . Current Hospital Diet Patient's current hospital diet: Low Fiber Diet Discharge Diet Recommended Diet: AHA Diet (Heart Healthy), Diabetes Type 2 Diet, Low Fiber Diet Pending Studies Studies pending at discharge: no Laboratory Results Hemoglobin A1c Test 10/20/16 05:41 Range/Units Estimated Average Glucose 111 mg/dl Hemoglobin A1c 5.5 4.5-5.6 % Medical Emergencies . Who to Call and When: Medical Emergencies: If at any time you feel your situation is an emergency, please call 911 immediately. . Non-Emergent Contact Non-Emergency issues call your: Primary Care Provider, Hospital Doctor, Surgeon . . "Provider Documentation" section prepared by Daniel García. . VTE Core Measure Inpt VTE Proph given/why not?: Enoxaparin (Lovenox)SQ
[2016-11-13 17:40] VITALS: BP 102/63; PULSE 70; TEMP 36.8; O2SAT 95
--- NOTE | 2016-11-14 02:41 | Discharge Summary ---
Discharge Summary Date of Service Nov 14, 2016. Discharge Summary Admission Date: Nov 08, 2016 at 00:09 Discharge Date: Nov 13, 2016 Discharge Disposition: Home Principal Diagnosis: partial bowel obstruction . Secondary Diagnoses/Problems: Chronic Medical Problems: (1) CKD (chronic kidney disease), stage III Status: Chronic (2) Colon cancer Status: Chronic (3) COPD, moderate Status: Chronic (4) Depression Status: Chronic (5) DM type 2 (diabetes mellitus, type 2) Status: Chronic (7) Hypothyroidism Status: Chronic Consultations: General Surgery . Medication Reconciliation New Medications: Sennosides-Docusate Sodium (Senokot S) 1 Tab Tab 1 TAB PO DAILY for 30 Days, #30 TAB No prescription necessary. Continued Medications: Albuterol Sulfate (Proair Respiclick) 108 Mcg/Act Aer 2 PUFF INH QID Aluminum Hydroxide-Mag Trisil (Gaviscon) 1 Chw Chw 2 TABS PO QID PRN for GI Upset Ascorbic Acid (Vitamin C) 500 Mg Tab 500 MG PO HS Calcium Citrate-Vitamin D (Citracal + D3 Maximum) 1 Tab Tab 1 TAB PO DAILY Cetirizine Hcl (Zyrtec) 5 Mg Tab 5 MG PO DAILY, TAB Cyanocobalamin (Vitamin B-12) 1,000 Mcg Tab 1000 MCG PO DAILY, TAB Ferrous Sulfate (Kp Ferrous Sulfate) 325 Mg Tab 1 TAB PO DAILY for 30 Days, #30 TAB 3 Refills Fluticasone Propionate (Nasal) (Flonase Allergy Relief) 50 Mcg/Act Spr 2 SPRAYS MARI DAILY Levothyroxine Sodium (Levothyroxine Sodium) 88 Mcg Tab 88 MCG PO DAILY, TAB Magnesium Chloride (Slow-Mag Tab) 64 Mg Tabcr 64 MG PO BID for 30 Days, #60 TABS 2 Refills Multivitamin (Multivitamin) Tab 1 TAB PO QAM, TAB Ondansetron Hcl (Zofran) 4 Mg Tab 4 MG PO Q6 PRN for Nausea, TAB Pravastatin (Pravachol ) 20 Mg Tab 20 MG PO DAILY, TAB with supper Sertraline (Zoloft) 50 Mg Tab 50 MG PO HS, TAB Umeclidinium-Vilanterol (Anoro Ellipta 62.5-25 Mcg/INH) 1 Aer Aer 1 PUFF INH DAILY Discontinued Medications: Alendronate Sodium (Fosamax) 70 Mg Tab 70 MG PO WK, TAB Admission Information HPI (per Admitting provider): History obtained from the patient and records. Medical history significant for colon cancer status post surgery in July 2016; history of cor pulmonale; COPD; past tobacco, DM2, diet controlled, hypertension, currently not on meds, chronic anemia (baseline hemoglobin 10-11) history ESBL Escherichia coli UTI., Recent confinement last month for hypotension secondary to ileostomy output. The patient's antihypertensives were discontinued on discharge. Yesterday, the patient noted achy abdominal pain with nausea, emesis; no output from ostomy. No chest pain, no fever, no chills. At the Emergency Room, chest and abdomen x-ray showed partial small bowel obstruction. NG tube inserted in the Emergency Room. . Physical Exam (per Admitting): VITAL SIGNS: Blood pressure was noted to be 137/80, pulse rate 90, RR 26, 98.6, and sats 90 on room air. GENERAL: Noted to be slightly uncomfortable, anxious, no resp distress. SKIN: pallor. HEENT: Pale palpable conjunctivae. Dry mucosa. NGT in place. NECK: No JVD. Supple. CHEST: Decreased breath sounds. HEART: Regular rate and rhythm. ABDOMEN: Distention, no overt tenderness, ostomy noted. EXTREMITIES: No edema. No tenderness NEUROLOGIC: No gross focality. . Hospital Course PARTIAL BOWEL OBSTRUCTION Presented with abdominal pain. Imaging consistent with bowel obstruction. General Surgery consulted. Management with bowel rest, NG tube, IV fluids with improvement. NGT removed and diet advanced. Tolerating a low fiber diet. HISTORY HYPERTENSION Blood pressure stable without antihypertensive medications. COPD Stable. DM TYPE 2 Well-controlled. Hemoglobin A1c 5.5. COLON CA Presented with bowel perforation secondary to underlying carcinoma. Follow-up management per General Surgery and Hematology / Oncology. VTE PROPHYLAXIS SQ enoxaparin. Ambulate. DISPOSITION Discharge to home. Internal Medicine follow-up with Dr. Ghazala Whitten. Surgical follow-up with Dr. Powers. . Total time spent on discharge = 40 min. This includes examination of the patient, discharge planning, medication reconciliation, and communication with other providers. . Discharge Instructions Date of Service Nov 13, 2016. Admission Reason for Admission: partial bowel blockage . Discharge Discharge Diagnosis / Problem: partial bowel blockage Discharge Goals Goal(s): Decrease discomfort, Improve function, Improve disease control Activity Recommendations Activity Limitations: resume your previous activity . Instructions / Follow-Up Instructions / Follow-Up FOLLOW-UP APPOINTMENTS: PULMONARY MEDICINE 11/14/2016 10:15 AM Jb Roman MD Pulmonary Medicine, [place] INTERNAL MEDICINE 11/16/2016 11:40 AM Ghazala Whitten MD General Internal Medicine [facility] W[facility]IN[facility] Office will contact you with appointment. GENERAL SURGERY 12/01/2016 1:45 PM Дмитрий Powers MD General Surgery, [facility] MEDICATION CHANGES: Start taking Senokot-S once a day to keep your bowels moving regularly. May skip dose if you are having loose stools. Stop alendronate (Fosamax). OTHER INSTRUCTIONS: Seek medical attention if you have: * temperature above 101 * chest pain or trouble breathing * abdominal pain, nausea, vomiting * diarrhea, dark stools or bloody stools * any unanswered questions or concerns Call 911 if symptoms are severe. Call if you have any questions or problems. My cell # is [phone]. You can also reach a [facility] hospitalist on duty at [facility] 24 hours a day by calling [phone]. Please take good care of yourself. Daniel García . Current Hospital Diet Patient's current hospital diet: Low Fiber Diet Discharge Diet Recommended Diet: AHA Diet (Heart Healthy), Diabetes Type 2 Diet, Low Fiber Diet Pending Studies Studies pending at discharge: no Laboratory Results Hemoglobin A1c Test 10/20/16 05:41 Range/Units Estimated Average Glucose 111 mg/dl Hemoglobin A1c 5.5 4.5-5.6 % Medical Emergencies . Who to Call and When: Medical Emergencies: If at any time you feel your situation is an emergency, please call 911 immediately. . Non-Emergent Contact Non-Emergency issues call your: Primary Care Provider, Hospital Doctor, Surgeon . . "Provider Documentation" section prepared by Daniel García. . VTE Core Measure Inpt VTE Proph given/why not?: Enoxaparin (Lovenox)SQ . Additional Copies To Дмитрий Powers M.D.; Ghazala Whitten M.D.
[2016-12-22] MEDS ORDERED: UMEC1AER INH (13:03)
[2016-12-22] MEDS ORDERED: MULT-916 PO (13:03)
[2016-12-22] MEDS ORDERED: SENN-61 PO (13:03)
== END 2016-11-13 18:45 | disposition home health service (06) | DRG 389 ==
LOC: C.EDB 20:15 → C.MSN 11-08 00:09 → ENRESERV 11-08 00:14
PROVIDERS: ADMIT Internal Medicine; ATTEND Hospitalist
DX: K56.60 Unspecified intestinal obstruction (principal); C18.9 Malignant neoplasm of colon, unspecified; N18.3 Chronic kidney disease, stage 3 (moderate); E11.22 Type 2 diabetes mellitus with diabetic chronic kidney disease; E03.9 Hypothyroidism, unspecified; I12.9 Hypertensive chronic kidney disease with stage 1 through stage 4 chronic kidney disease, or unspecified chronic kidney disease; I27.81 Cor pulmonale (chronic); D64.9 Anemia, unspecified; Z93.2 Ileostomy status; Z79.899 Other long term (current) drug therapy; Z87.891 Personal history of nicotine dependence

== ENCOUNTER → 2016-12-25 | Day surgery (SDC) | payer BC ==
[2016-12-22 12:39] VITALS: BMI 29.0
[~2016-12-25] VITALS: Ht 160 cm; Wt 75.9 kg
[~2016-12-25] MED LIST changes: -ALEN70TA4 PO; +ATROPINE SULFATE 0.1 MG/ML 5ML SYR IV PRN; -CALC0.2510 PO; +CEFAZOLIN 2000 MG/60 ML D5W 60 ML IV SCH; +EpHEDrine SULFATE INJ 50 MG/ML AMP IV PRN; +FENTANYL CITRATE INJ 50 MCG/1 ML 2 ML VIAL IV PRN; +FENTANYL CITRATE INJ 50 MCG/1 ML 2 ML VIAL ONE; +LACTATED RINGER'S 1000ML 1,000 ML IV SCH; +LIDOCAINE HCL 1% 20 ML VIAL ONE; +LIDOCAINE HCL 2% 2 ML VIAL (20MG/ML) ONE; -MCRB100 PO; -MCRK20 PO; +MIDAZOLAM HCL 1 MG/ML 2ML VIAL ONE; -MULT-506 PO; +MULT-916 PO; +ONDA4TAB46 PO; +ONDANSETRON INJ 2 MG/ML 2 ML VIAL IV PRN; +OXYCODONE/ACETAMINOPHEN 5-325 TAB PO PRN; +PROMETHAZINE HCL INJ 6.25 MG in SODIUM CHLORIDE 0.9% 50ML 50 ML IV PRN; +PROPOFOL IV EMULSION 10 MG/ML 20 ML VIAL IV ONE; +SENN-61 PO; +SODIUM CHLORIDE 0.9% 1000ML 1,000 ML IV SCH
[2016-12-25 06:50] VITALS: BP 123/54; PULSE 85; TEMP 36.7; O2SAT 95; Ht 160 cm; Wt 75.9 kg
--- NOTE | 2016-12-25 08:38 | History & Physical Bridge Note ---
H&P Re-Evaluation Bridge Note: I have examined the patient, reviewed the History & Physical and in the interval since the performance of the History & Physical I have noted the following changes of clinical significance: No changes noted
--- NOTE | 2016-12-25 09:43 | [facility] Post Operative Brief Note ---
Immediate Operative Summary Operative Date Dec 25, 2016. Pre-Operative Diagnosis colon cancer with need for terminal clerk IV access Post-Operative Diagnosis colon cancer with need for fpc IV access Procedure(s) Performed A Port insertion into right subclavian vein Surgeon Dr. Powers Reimbursement Rep Surgeon(s) Yana Lopez PA-C Estimated Blood Loss 5mL Findings See dictation Specimens none per surgeon Drains None Anesthesia Local with sedation Complication(s) None Disposition Recovery Room / PACU
--- NOTE | 2016-12-25 09:47 | Discharge Instructions ---
Discharge Instructions Date of Service Dec 25, 2016. Admission Reason for Admission: Circulatory System Disorder Discharge Discharge Diagnosis / Problem: Colon cancer, need for assisted central venous access Discharge Goals Goal(s): Improve disease control Activity Recommendations Activity Limitations: per Instructions/Follow-up section . Instructions / Follow-Up Instructions / Follow-Up MEDICATIONS: Resume previous medications unless instructed otherwise by your surgeon. * Ibuprofen 600 mg every 6 hours with food * Tylenol 650 mg every 4 hours, as needed for pain SPECIAL CARE INSTRUCTIONS: * Your A-port may be used immediately. * May shower in 24 hours. Let water run over area and pat dry. * Leave op-site dressing on for 3 days and then remove. * Call the surgeon's office with any questions or concerns - (ex. temperature higher than 101 degrees F, excessive bleeding or pain). FOLLOW UP VISIT: If not already scheduled, please call the office to schedule a two week follow- up appointment. Office number Current Hospital Diet Patient's current hospital diet: Discharge Diet Recommended Diet: Regular Diet Procedures Procedures Performed: A Port insertion into right subclavian vein Pending Studies Studies pending at discharge: no Laboratory Results Hemoglobin A1c Test 10/20/16 05:41 Range/Units Estimated Average Glucose 111 mg/dl Hemoglobin A1c 5.5 4.5-5.6 % Medical Emergencies . Who to Call and When: Medical Emergencies: If at any time you feel your situation is an emergency, please call 911 immediately. . Non-Emergent Contact Non-Emergency issues call your: Primary Care Provider, Surgeon Call Non-Emergent contact if: your pain is worsening, wound has increased drainage, wound has increased redness . "Provider Documentation" section prepared by Дмитрий Powers. . VTE Core Measure Inpt VTE Proph given/why not?: Treatment not indicated
--- NOTE | 2016-12-25 10:16 | Anesthesiology Progress Note ---
Anesthesia Post Op Note Date & Time Dec 25, 2016 at 10:16 Vital Signs Pain Intensity: 0 Vital Signs Past 12 Hours Date Time Temp Pulse Resp B/P (MAP) Pulse Ox O2 Delivery O2 Flow Rate FiO2 12/25/16 10:05 63 20 128/60 100 Oxymask 3 12/25/16 09:57 36.3 64 20 135/67 100 Oxymask 5 12/25/16 06:50 36.7 85 20 123/54 (77) 95 Room Air Notes Mental Status: alert / awake / arousable, participated in evaluation Pt Amnestic to Procedure: Yes Nausea / Vomiting: adequately controlled Pain: adequately controlled Airway Patency, RR, SpO2: stable & adequate BP & HR: stable & adequate Hydration State: stable & adequate Anesthetic Complications: no major complications apparent
[2016-12-25 10:25] VITALS: BP 119/65; PULSE 66; TEMP 36.5; O2SAT 96
--- NOTE | 2016-12-25 10:27 | OPERATIVE REPORT ---
DATE OF OPERATION: 12/25/2016 PREOPERATIVE DIAGNOSIS: Need for long-term central venous access. POSTOPERATIVE DIAGNOSIS: Same. PROCEDURE: Placement of A-port tunneled central venous access catheter with port via right subclavian approach. SURGEON: Dr. Powers. SOLID WASTE TECHNICIAN: Yana Lopez PA-C. FINDINGS: The tip of the catheter was placed near the superior vena cava/right atrial junction. There was good blood return and it was easily flushed without leaking. TECHNIQUE: The patient was positioned, given intravenous sedation, and the area was prepped and draped in the usual sterile fashion. The skin and subcutaneous tissue in the right infraclavicular area were anesthetized with 1% Xylocaine. The right subclavian vein was entered on the third attempt. The wire passed with ease. Fluoroscopy, however, demonstrated that the wire had entered the right internal jugular. Under fluoroscopic guidance, the wire was withdrawn and then repositioned and the tip of the wire was seen then to traverse the superior vena cava and enter the right atrium. A small incision was made at the exit site of the wire and the introducer sheath device was passed over the wire under fluoroscopic guidance. The introducer and wire were removed and the catheter was passed through the sheath. The tip of the catheter was seen to enter the right atrium. The sheath was peeled. Site for the port was chosen, and the skin and subcutaneous tissue superior to that area were anesthetized with 1% Xylocaine without epinephrine. Skin incision was made and was carried posteriorly to the prepectoral fascia and a prepectoral pocket was created bluntly. The port fit nicely. The catheter was then tunneled from the infraclavicular incision to the port incision using the tunneling device. Fluoroscopy was used to size the catheter. The catheter was cut and attached to the port with ease. The port was accessed and there was good blood return. It was easily flushed with first saline and then heparinized saline. There was no leaking. The port was secured to the prepectoral fascia with 2-0 Prolene sutures. The skin of the port incision was closed with 2-0 Vicryl in the deep subcutaneous tissue, 3-0 Vicryl in the superficial subcutaneous tissue and 4-0 Monocryl in a subcuticular fashion for the skin. The infraclavicular incision was closed with 1 interrupted subcuticular 4-0 Monocryl. The skin was cleansed, dried and dressing placed. Estimated blood loss was 5 mL. Sponge, needle and instrument counts were correct prior to closure. The patient tolerated the surgical procedure without complication and was transferred to recovery. I attest to the content of the Intraoperative Record and any orders documented therein. Any exception s are noted below.
--- NOTE | 2016-12-25 10:33 | DIAGNOSTIC IMAGING REPORT ---
SINGLE VIEW CHEST CLINICAL HISTORY: Status post infusion port placement. FINDINGS: An AP, portable, upright chest radiograph is compared to study dated 11/07/2016 and correlated with chest CT dated 10/06/2008. The examination is degraded by portable technique and patient rotation. A right subclavian central venous infusion port is new from 11/07/2016. The catheter appears intact and the tip projects over the SVC. The cardiomediastinal silhouette is unremarkable. There is atherosclerotic calcification of the thoracic aorta. The lungs and pleural spaces are clear. No pneumothorax is seen. The skeletal structures are osteopenic. The bony thorax is grossly intact. IMPRESSION: 1. A right subclavian central venous infusion port is new from previous. No pneumothorax is identified post procedure. 2. The lungs are clear. Electronically signed by: David Varner M.D. 12/25/2016 10:31 AM Dictated Date/Time: 12/25/2016 10:28 AM
[2016-12-25 10:55] VITALS: BP 152/70; PULSE 65; O2SAT 100
== END | disposition home or self-care (01) ==
LOC: C.ACU 06:27
PROVIDERS: ATTEND Surgery
DX: C18.9 Malignant neoplasm of colon, unspecified (principal); I27.81 Cor pulmonale (chronic); E11.9 Type 2 diabetes mellitus without complications; D32.9 Benign neoplasm of meninges, unspecified; E03.9 Hypothyroidism, unspecified; J44.9 Chronic obstructive pulmonary disease, unspecified; Z87.891 Personal history of nicotine dependence; Z79.899 Other long term (current) drug therapy

== ENCOUNTER → 2017-02-28 | Outpatient (CLI) | payer BC ==
[~2017-02-28] MED LIST changes: -ATROPINE SULFATE 0.1 MG/ML 5ML SYR IV PRN; -CEFAZOLIN 2000 MG/60 ML D5W 60 ML IV SCH; -EpHEDrine SULFATE INJ 50 MG/ML AMP IV PRN; -FENTANYL CITRATE INJ 50 MCG/1 ML 2 ML VIAL IV PRN; -FENTANYL CITRATE INJ 50 MCG/1 ML 2 ML VIAL ONE; -LACTATED RINGER'S 1000ML 1,000 ML IV SCH; -LIDOCAINE HCL 1% 20 ML VIAL ONE; -LIDOCAINE HCL 2% 2 ML VIAL (20MG/ML) ONE; -MIDAZOLAM HCL 1 MG/ML 2ML VIAL ONE; -ONDANSETRON INJ 2 MG/ML 2 ML VIAL IV PRN; -OXYCODONE/ACETAMINOPHEN 5-325 TAB PO PRN; -PRAV20TA PO; -PROMETHAZINE HCL INJ 6.25 MG in SODIUM CHLORIDE 0.9% 50ML 50 ML IV PRN; -PROPOFOL IV EMULSION 10 MG/ML 20 ML VIAL IV ONE; -SODIUM CHLORIDE 0.9% 1000ML 1,000 ML IV SCH
--- NOTE | 2017-02-28 13:36 | DIAGNOSTIC IMAGING REPORT ---
A-PORT CHECK CLINICAL HISTORY: CECAL CAport malfunction COMPARISON STUDY: None FLUOROSCOPY TIME: 6 seconds. FINDINGS: The left sided port opacifies appropriately. There is no evidence of contrast extravasation or leak. Tip of the catheter is widely patent. There is no significant fibrin sheath. There are no obstructive changes. IMPRESSION: Normal study The above report was generated using voice recognition software. It may contain grammatical, syntax or spelling errors. Electronically signed by: Дмитрий Milian M.D. 02/28/2017 1:34 PM Dictated Date/Time: 02/28/2017 1:33 PM
== END | disposition home or self-care (01) ==
LOC: C.RAD 12:49
PROVIDERS: ATTEND Internal Medicine Hematology
DX: C18.0 Malignant neoplasm of cecum (principal)

== ENCOUNTER 2017-04-04 20:21 | Inpatient (IN) | payer BC, OTHER ==
[~2017-04-04] VITALS: Ht 157.5 cm; Wt 78.9 kg
[2017-04-04] MEDS ORDERED: SODIUM CHLORIDE 0.9% 1000ML 1,000 ML IV STA (21:31)
[2017-04-04] MEDS ORDERED: OPTIRAY 320 IV PRN (21:45)
[2017-04-04] MEDS ORDERED: PROM12.57 PO (22:06)
[2017-04-04] MEDS ORDERED: PRAV20TA PO (22:07)
--- NOTE | 2017-04-04 22:12 | EMERGENCY ROOM VISIT NOTE ---
History Report prepared by Katharine: Yaneth Jordan Under the Supervision of: Dr. Herber Davies M.D. First contact with patient: 21:29 Chief Complaint: CONSTIPATION Stated Complaint: NO DISCHARGE/CLOGGED INTESTINE History of Present Illness The patient is a 71 year old female who presents to the Emergency Room with complaints of constant epigastric pain decreased ileostomy output for past day and a half. The patient has a history of colon cancer and is status post resection. She follows up with Dr. Oneill and is currently undergoing chemotherapy. The patient denies any nausea, vomiting, fever, chills, chest pain , dizziness, or shortness of breath. She takes a daily laxative for her history of bowel obstruction. Source of History: patient Onset: a day and a half ago Position: other (epigastric) Quality: other (pain) Associated Symptoms: + abdominal pain, No fevers, No chills, No chest pain, No SOB, No nausea, No vomiting Note: The patient also notes decreased ileostomy output. Review of Systems See HPI for pertinent positives and negatives. A total of ten systems were reviewed and were otherwise negative. Past Medical & Surgical Medical Problems: (1) Acute blood loss anemia (2) CKD (chronic kidney disease), stage III (3) Colon cancer (4) COPD, moderate (5) Depression (6) DM type 2 (diabetes mellitus, type 2) (7) Epigastric abdominal pain (8) Fungemia (9) Hypotension (10) Hypothyroidism (11) Lactic acid increased (12) Perforation of colon (13) Peritonitis (14) Polymicrobial sepsis (15) SBO (small bowel obstruction) Surgical Problems: (1) S/P oophorectomy Family History Colon cancer SISTER SISTER Heart disease MOTHER Hypertension FATHER MOTHER Social History Smoking Status: Former Smoker Alcohol Use: none Drug Use: none Marital Status: single Occupation Status: retired Current/Historical Medications Scheduled Albuterol Sulfate (Proair Respiclick), 2 PUFF INH QID Ascorbic Acid (Vitamin C), 500 MG PO BID Calcium Citrate-Vitamin D (Citracal + D3 Maximum), 1 TAB PO QAM Cetirizine Hcl (Zyrtec), 5 MG PO QPM Cyanocobalamin (Vitamin B-12), 1,000 MCG PO QAM Ferrous Sulfate (Kp Ferrous Sulfate), 325 MG PO QAM Fluticasone Propionate (Nasal) (Flonase Allergy Relief), 2 SPRAYS MARI QAM Levothyroxine Sodium (Levothyroxine Sodium), 88 MCG PO QAM Magnesium Chloride (Slow-Mag Tab), 64 MG PO BID Multiple Vitamins W/ Minerals (Multivitamin Adults 50+), 1 TAB PO QAM Pravastatin (Pravachol ), 1 TAB PO QPM Senna (Senokot), 8.6 MG PO BID Sertraline (Zoloft), 50 MG PO HS Umeclidinium-Vilanterol (Anoro Ellipta 62.5-25 Mcg/INH), 1 PUFF INH QAM Scheduled PRN Aluminum Hydroxide-Mag Trisil (Gaviscon), 2 TABS PO QID PRN for GI Upset Ondansetron Hcl (Zofran), 4 MG PO Q6 PRN for Nausea Promethazine (Phenergan ), Unknown Dose PO QPM PRN for Nausea Allergies Coded Allergies: No Known Allergies (Unverified , 04/04/17) Physical Exam Vital Signs Date Time Temp Pulse Resp B/P (MAP) Pulse Ox O2 Delivery O2 Flow Rate FiO2 04/05/17 01:06 73 153/83 96 Room Air 04/05/17 01:00 Room Air 04/04/17 20:25 36.9 86 18 153/71 95 Room Air Physical Exam GENERAL: Awake, alert, well-appearing, in no distress HENT: Normocephalic, atraumatic. Oropharynx unremarkable. Dry MM. EYES: Normal conjunctiva. Sclera non-icteric. NECK: Supple. No nuchal rigidity. FROM. No JVD. RESPIRATORY: Clear to auscultation. CARDIAC: Regular rate, normal rhythm. Extremities warm and well perfused. Pulses equal. ABDOMEN: RLQ ileostomy clean, dry and intact. LLQ cutaneous fistula clean, dry, intact. Soft, non-distended. No tenderness to palpation. No rebound or guarding. No masses. RECTAL: Deferred. MUSCULOSKELETAL: Chest examination reveals no tenderness. The back is symmetrical on inspection without obvious abnormality. There is no CVA tenderness to palpation. No joint edema. LOWER EXTREMITIES: Calves are equal size bilaterally and non-tender. No edema. No discoloration. NEURO: Normal sensorium. No sensory or motor deficits noted. SKIN: No rash or jaundice noted. Medical Decision & Procedures ER Provider Diagnostic Interpretation: Radiology results as stated below per my review and radiologist interpretation: CT ABDOMEN & PELVIS With Contrast: No bowel obstruction. Bilateral ostomies with associated parastomal hernias. Appendix not identified. Colonic diverticula. Cholelithiasis. 2.9 cm left adrenal nodule. Radiologist: Keaton Alba Laboratory Results 04/04/17 22:07 Red Blood Count 3.24, Mean Corpuscular Volume 96.3, Mean Corpuscular Hemoglobin 33.0, Mean Corpuscular Hemoglobin Concent 34.3, Mean Platelet Volume 9.5, Neutrophils (%) (Auto) 80.5, Lymphocytes (%) (Auto) 8.9, Monocytes (%) (Auto) 10.3, Eosinophils (%) (Auto) 0.0, Basophils (%) (Auto) 0.0, Neutrophils # (Auto ) 2.82, Lymphocytes # (Auto) 0.31, Monocytes # (Auto) 0.36, Eosinophils # (Auto ) 0.00, Basophils # (Auto) 0.00 04/04/17 22:07 Test 04/04/17 22:07 04/04/17 23:10 04/05/17 02:02 White Blood Count 3.50 K/uL (4.8-10.8) Red Blood Count 3.24 M/uL (4.2-5.4) Hemoglobin 10.7 g/dL (12.0-16.0) Hematocrit 31.2 % (37-47) Mean Corpuscular Volume 96.3 fL (80-100) Mean Corpuscular Hemoglobin 33.0 pg (25-34) Mean Corpuscular Hemoglobin Concent 34.3 g/dl (32-36) Platelet Count 158 K/uL (130-400) Mean Platelet Volume 9.5 fL (7.4-10.4) Neutrophils (%) (Auto) 80.5 % Lymphocytes (%) (Auto) 8.9 % Monocytes (%) (Auto) 10.3 % Eosinophils (%) (Auto) 0.0 % Basophils (%) (Auto) 0.0 % Neutrophils # (Auto) 2.82 K/uL (1.4-6.5) Lymphocytes # (Auto) 0.31 K/uL (1.2-3.4) Monocytes # (Auto) 0.36 K/uL (0.11-0.59) Eosinophils # (Auto) 0.00 K/uL (0-0.5) Basophils # (Auto) 0.00 K/uL (0-0.2) RDW Standard Deviation 71.8 fL (36.4-46.3) RDW Coefficient of Variation 20.2 % (11.5-14.5) Immature Granulocyte % (Auto) 0.3 % Immature Granulocyte # (Auto) 0.01 K/uL (0.00-0.02) Anisocytosis PRESENT Tear Drop Cells 1+ Ovalocytes 1+ Anion Gap 10.0 mmol/L (3-11) Est Creatinine Clear Calc Drug Dose 43.5 ml/min Estimated GFR () 53.6 Estimated GFR (Non- 46.2 BUN/Creatinine Ratio 15.1 (10-20) Lactic Acid Level 3.2 mmol/L (0.4-2.0) Calcium Level 9.0 mg/dl (8.5-10.1) Total Bilirubin 0.3 mg/dl (0.2-1) Direct Bilirubin < 0.1 mg/dl (0-0.2) Aspartate Amino Transf (AST/SGOT) 27 U/L (15-37) Alanine Aminotransferase (ALT/SGPT) 32 U/L (12-78) Alkaline Phosphatase 71 U/L (45-117) Total Protein 7.0 gm/dl (6.4-8.2) Albumin 2.8 gm/dl (3.4-5.0) Lipase 1253 U/L (73-393) Urine Color YELLOW Urine Appearance CLEAR (CLEAR) Urine pH 6.0 (4.5-7.5) Urine Specific [place] 1.011 (1.000-1.030) Urine Protein NEG (NEG) Urine Glucose (UA) NEG (NEG) Urine Ketones NEG (NEG) Urine Occult Blood NEG (NEG) Urine Nitrite NEG (NEG) Urine Bilirubin NEG (NEG) Urine Urobilinogen NEG (NEG) Urine Leukocyte Esterase TRACE (NEG) Urine WBC (Auto) 5-10 /hpf (0-5) Urine RBC (Auto) 0-4 /hpf (0-4) Urine Hyaline Casts (Auto) 0 /lpf (0-5) Urine Epithelial Cells (Auto) 10-20 /lpf (0-5) Urine Bacteria (Auto) NEG (NEG) Laboratory results reviewed by me Medications Administered Medications (Trade) Dose Ordered Sig/[place] Route Start Time Stop Time Status Last Admin Dose Admin Sodium Chloride 1,000 ml @ 999 mls/hr Q1H1M STAT IV 04/04/17 21:31 04/04/17 22:31 DC 04/04/17 22:12 999 MLS/HR Sodium Chloride 1,000 ml @ 250 mls/hr Q4H STAT IV 04/05/17 00:08 04/05/17 04:07 04/05/17 00:40 250 MLS/HR ED Course 2131: The patient was evaluated in room B8. A complete history and physical exam was performed. Medical Decision I reviewed the patient's past medical history, medications, and the nursing notes as described above. Differential diagnoses: dehydration, electrolyte abnormality, constipation, obstruction, worsening malignancy. Patient is a 71-year-old woman with a past medical history of colon cancer status post resection and ileostomy currently undergoing chemotherapy followed by Dr. Whitten with oncology presents emergency Department with epigastric pain and slight nausea over the past couple of days with decreased ileostomy output per hpi. Arrival the patient is uncomfortable but in no acute distress, afebrile with stable vital signs. She has mild epigastric discomfort but no peritoneal signs. Ileostomy site is clean dry and intact. Labs notable for new onset pancreatitis with lipase 1200 which likely explains the patient's pain. Otherwise, lactate also elevated at 3.2 however the setting of the patient's clinically dry appearance. CT scan was done and preliminary stat read report is negative for any obstruction. She reassessed and feeling somewhat improved after IV fluid hydration, were given the patient's pain on arrival and her elevated lipase and lactate it is reasonable to admit the patient for symptom control, hydration. Case was discussed with Dr. Nathan, [facility] hospitalist, who will admit the patient for further management. Medication Reconcilliation Current Medication List: was personally reviewed by me Blood Pressure Screening Patient's blood pressure: Elevated blood pressure Blood pressure disposition: Elevated BP felt to be situational Impression Primary Impression: Pancreatitis Additional Impression: Dehydration, moderate Scribe Attestation The scribe's documentation has been prepared under my direction and personally reviewed by me in its entirety. I confirm that the note above accurately reflects all work, treatment, procedures, and medical decision making performed by me. Departure Information Referrals Ghazala Whitten M.D. (PCP) Patient Instructions [facility] Problem Qualifiers
[2017-04-04 22:38] LABS: HEMATOCRIT 31.2 % (37-47); HEMOGLOBIN 10.7 g/dL (12.0-16.0); IG# 0.01 K/uL (0.00-0.02); LYMPH % 8.9 %; LYMPH ABS # 0.31 K/uL (1.2-3.4); MEAN CELL VOLUME 96.3 fL (80-100); MEAN CORPUSCULAR HGB CONC 34.3 g/dl (32-36); MEAN PLATELET VOLUME 9.5 fL (7.4-10.4); MONO % 10.3 %; MONO ABS # 0.36 K/uL (0.11-0.59); NEUT % 80.5 %; NEUT ABS # 2.82 K/uL (1.4-6.5); PLATELET COUNT 158 K/uL (130-400); RED CELL DISTRIBUTION WIDTH CV 20.2 % (11.5-14.5); RED CELL DISTRIBUTION WIDTH SD 71.8 fL (36.4-46.3)
[2017-04-04 22:39] LABS: ALBUMIN 2.8 gm/dl (3.4-5.0); ALT/SGPT 32 U/L (12-78); BLOOD UREA NITROGEN 18 mg/dl (7-18); CARBON DIOXIDE 22 mmol/L (21-32); CREATININE 1.19 mg/dl (0.60-1.20); GLUCOSE 139 mg/dl (70-99); LIPASE 1253 U/L (73-393); POTASSIUM 4.2 mmol/L (3.5-5.1); SODIUM 134 mmol/L (136-145)
[2017-04-04 22:42] LABS: ALKALINE PHOSPHATASE 71 U/L (45-117); AST/SGOT 27 U/L (15-37)
[2017-04-05] MEDS ORDERED: SODIUM CHLORIDE 0.9% 1000ML 1,000 ML IV STA (00:08)
[2017-04-05 01:00] VITALS: BMI 32.9
[2017-04-05] MEDS ORDERED: IV FLUIDS COMPLETED PRN (01:45)
--- NOTE | 2017-04-05 03:35 | History and Physical ---
History & Physical Date & Time of Service: Apr 05, 2017 at 03:32 Chief Complaint: Epigastric Abdominal Pain, Lactic Acid Increased Primary Care Physician: Ghazala Whitten M.D. 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 Patient follows with Dr Ghazala Whitten and patient went to Hematology/Oncology at [facility] on to receive outpatient infusion of chemotherapy leucovorin with fluorouracil ( 5-FU) and arrived to the ER with 5-FU still running in her infusion port. In the ED patient was found to have elevated lipase and elevated lactic acid. Patient seen by hospitalist physician without acute distress. Patient placed under observation for IV hydration and monitoring of abdominal symptoms Past Medical/Surgical History Medical Problems: (1) CKD (chronic kidney disease), stage III Status: Chronic (2) Colon cancer Status: Chronic (3) COPD, moderate Status: Chronic (4) Depression Status: Chronic (5) DM type 2 (diabetes mellitus, type 2) Status: Chronic (6) Fungemia Status: Resolved (7) Hypothyroidism Status: Chronic (8) Perforation of colon Status: Resolved (9) Peritonitis Status: Resolved (10) Polymicrobial sepsis Status: Resolved Family History Colon cancer SISTER SISTER Heart disease MOTHER Hypertension FATHER MOTHER Social History Smoking Status: Never Smoker Drug Use: none Marital Status: single Housing status: lives alone Occupational Status: retired Immunizations History of Influenza Vaccine: Yes Influenza Vaccine Date: Dec 23, 2015 History of Tetanus Vaccine?: Yes Tetanus Immunization Date: Oct 16, 2008 History of Pneumococcal: Yes Pneumococcal Date: July 30, 2015 Allergies Coded Allergies: No Known Allergies (Unverified , 04/04/17) Home Medications Scheduled Albuterol Sulfate (Proair Respiclick), 2 PUFF INH QID Ascorbic Acid (Vitamin C), 500 MG PO BID Calcium Citrate-Vitamin D (Citracal + D3 Maximum), 1 TAB PO QAM Cetirizine Hcl (Zyrtec), 5 MG PO QPM Cyanocobalamin (Vitamin B-12), 1,000 MCG PO QAM Ferrous Sulfate (Kp Ferrous Sulfate), 325 MG PO QAM Fluticasone Propionate (Nasal) (Flonase Allergy Relief), 2 SPRAYS MARI QAM Levothyroxine Sodium (Levothyroxine Sodium), 88 MCG PO QAM Magnesium Chloride (Slow-Mag Tab), 64 MG PO BID Multiple Vitamins W/ Minerals (Multivitamin Adults 50+), 1 TAB PO QAM Pravastatin (Pravachol ), 1 TAB PO QPM Senna (Senokot), 8.6 MG PO BID Sertraline (Zoloft), 50 MG PO HS Umeclidinium-Vilanterol (Anoro Ellipta 62.5-25 Mcg/INH), 1 PUFF INH QAM Scheduled PRN Aluminum Hydroxide-Mag Trisil (Gaviscon), 2 TABS PO QID PRN for GI Upset Ondansetron Hcl (Zofran), 4 MG PO Q6 PRN for Nausea Promethazine (Phenergan ), Unknown Dose PO QPM PRN for Nausea Review of Systems Constitutional: No fever Eyes: No worsening of vision, No eye pain ENT: No nasal symptoms, No sore throat Respiratory: No cough, No sputum, No wheezing, No shortness of breath Cardiovascular: No chest pain, No edema, No palpitations Abdomen: + pain (above epigastrum), No nausea, No vomiting Musculoskeletal: No swelling, No calf pain Genitourinary - Female: No dysuria Neurologic: No paralysis, No numbness/tingling Psychiatric: No substance abuse Endocrine: No fatigue Hematologic / Lymphatic: No abnormal bleeding/bruising Integumentary: No rash Physical Exam Vital Signs Date Time Temp Pulse Resp B/P (MAP) Pulse Ox O2 Delivery O2 Flow Rate FiO2 04/05/17 02:46 36.9 73 18 153/83 96 04/05/17 01:06 73 153/83 96 Room Air 04/05/17 01:00 Room Air 04/04/17 20:25 36.9 86 18 153/71 95 Room Air General Appearance: WD/WN, no apparent distress Head: normocephalic, atraumatic Eyes: normal inspection, EOMI, sclerae normal ENT: normal ENT inspection, hearing grossly normal, pharynx normal Neck: supple, no JVD, trachea midline Respiratory/Chest: chest non-tender, lungs clear, normal breath sounds, no respiratory distress, no accessory muscle use Cardiovascular: regular rate, rhythm, no edema, no JVD Abdomen/GI: normal bowel sounds, soft, no organomegaly, + tenderness ( tenderness on palpation above umbilicus), + pertinent finding (dressing over right abdomen, ostomy bag over right abdomen) Back: normal inspection, no muscle spasm, normal range of motion Extremities/Musculoskelatal: normal inspection, no calf tenderness, no pedal edema, normal range of motion, non-tender Neurologic/Psych: alert, normal mood/affect, oriented x 3 Skin: normal color, warm/dry, no rash Diagnostics Laboratory Results Results Past 24 Hours Test 04/04/17 22:07 04/04/17 23:10 04/05/17 02:02 Range/Units White Blood Count 3.50 4.8-10.8 K/uL Red Blood Count 3.24 4.2-5.4 M/uL Hemoglobin 10.7 12.0-16.0 g/dL Hematocrit 31.2 37-47 % Mean Corpuscular Volume 96.3 80-100 fL Mean Corpuscular Hemoglobin 33.0 25-34 pg Mean Corpuscular Hemoglobin Concent 34.3 32-36 g/dl Platelet Count 158 130-400 K/uL Mean Platelet Volume 9.5 7.4-10.4 fL Neutrophils (%) (Auto) 80.5 % Lymphocytes (%) (Auto) 8.9 % Monocytes (%) (Auto) 10.3 % Eosinophils (%) (Auto) 0.0 % Basophils (%) (Auto) 0.0 % Neutrophils # (Auto) 2.82 1.4-6.5 K/uL Lymphocytes # (Auto) 0.31 1.2-3.4 K/uL Monocytes # (Auto) 0.36 0.11-0.59 K/uL Eosinophils # (Auto) 0.00 0-0.5 K/uL Basophils # (Auto) 0.00 0-0.2 K/uL RDW Standard Deviation 71.8 36.4-46.3 fL RDW Coefficient of Variation 20.2 11.5-14.5 % Immature Granulocyte % (Auto) 0.3 % Immature Granulocyte # (Auto) 0.01 0.00-0.02 K/uL Anisocytosis PRESENT Tear Drop Cells 1+ Ovalocytes 1+ Sodium Level 134 136-145 mmol/L Potassium Level 4.2 3.5-5.1 mmol/L Chloride Level 102 98-107 mmol/L Carbon Dioxide Level 22 21-32 mmol/L Anion Gap 10.0 3-11 mmol/L Blood Urea Nitrogen 18 7-18 mg/dl Creatinine 1.19 0.60-1.20 mg/dl Est Creatinine Clear Calc Drug Dose 43.5 ml/min Estimated GFR () 53.6 Estimated GFR (Non- 46.2 BUN/Creatinine Ratio 15.1 10-20 Random Glucose 139 70-99 mg/dl Lactic Acid Level 3.2 0.4-2.0 mmol/L Calcium Level 9.0 8.5-10.1 mg/dl Total Bilirubin 0.3 0.2-1 mg/dl Direct Bilirubin < 0.1 0-0.2 mg/dl Aspartate Amino Transf (AST/SGOT) 27 15-37 U/L Alanine Aminotransferase (ALT/SGPT) 32 12-78 U/L Alkaline Phosphatase 71 45-117 U/L Total Protein 7.0 6.4-8.2 gm/dl Albumin 2.8 3.4-5.0 gm/dl Lipase 1253 73-393 U/L Urine Color YELLOW Urine Appearance CLEAR CLEAR Urine pH 6.0 4.5-7.5 Urine Specific [place] 1.011 1.000-1.030 Urine Protein NEG NEG Urine Glucose (UA) NEG NEG Urine Ketones NEG NEG Urine Occult Blood NEG NEG Urine Nitrite NEG NEG Urine Bilirubin NEG NEG Urine Urobilinogen NEG NEG Urine Leukocyte Esterase TRACE NEG Urine WBC (Auto) 5-10 0-5 /hpf Urine RBC (Auto) 0-4 0-4 /hpf Urine Hyaline Casts (Auto) 0 0-5 /lpf Urine Epithelial Cells (Auto) 10-20 0-5 /lpf Urine Bacteria (Auto) NEG NEG Impression Assessment and Plan 71 year old female who with 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 Patient follows with Dr Ghazala Whitten and patient went to Hematology/Oncology at [facility] on to receive outpatient infusion of chemotherapy leucovorin with fluorouracil ( 5-FU) and arrived to the ER with 5-FU still running in her infusion port. In the ED patient was found to have elevated lipase and elevated lactic acid. -Patient placed under observation for IV hydration and monitoring of abdominal symptoms -trend lactic acid -hold home dose oral vitamin supplements for now and monitor abdominal discomfort -CT abdomen: no bowel obstruction, cholelithiasis, left adrenal nodule -Hypothyroidism: continue home dose Levothyroxine -COPD history: continue home inhalers -patient to finish her course of 5-FU for the present chemotherapy session for treatment of cecal cancer -DVT ppx: SCDs Level of Care Med/Surg Advanced Directives Existing Living Will: Yes Existing Power of Multimedia Technician: Yes Resuscitation Status FULL RESUSCITATION VTE Prophylaxis VTE Risk Assessment Done? Y/N: Yes Risk Level: Moderate
[2017-04-05 03:56] VITALS: BP 151/85; PULSE 75; TEMP 36.7; O2SAT 98
[2017-04-05] MEDS ORDERED: NURSING VERBAL MED ORDER SCH (04:00)
[2017-04-05] MEDS ORDERED: SODIUM CHLORIDE 0.9% 1000ML 1,000 ML IV SCH (04:00)
[2017-04-05] MEDS ORDERED: ONDANSETRON 4 MG TAB PO PRN (04:15)
[2017-04-05] MEDS ORDERED: ONDANSETRON INJ 2 MG/ML 2 ML VIAL ONE (04:26)
[2017-04-05] MEDS ORDERED: NURSING VERBAL MED ORDER ONE (04:30)
[2017-04-05] MEDS ORDERED: ONDANSETRON INJ 2 MG/ML 2 ML VIAL IV PRN (04:45)
--- NOTE | 2017-04-05 06:42 | DIAGNOSTIC IMAGING REPORT ---
CT ABD/PELVIS IV CONTRAST ONLY CLINICAL HISTORY: Generalized abdominal pain and diminished ostomy output COMPARISON STUDY: 08/09/2016 TECHNIQUE: Following the IV administration of 110 mL of Optiray-320, CT scan of the abdomen and pelvis was performed from the lung bases to the proximal femurs. Images are reviewed in the axial, sagittal, and coronal planes. IV contrast was administered without complication. A dose lowering technique was utilized adhering to the principles of ALARA. CT DOSE: 592.46 mGy.cm FINDINGS: Lower chest: The heart is normal in size and configuration, without pericardial effusion. The lung bases and pleural spaces are clear. Liver: The contrast-enhanced liver is normal in size, contour, and attenuation. There is no intrahepatic biliary ductal dilatation. The hepatic veins and portal veins are patent. Gallbladder: Cholelithiasis. Spleen: Normal in size and attenuation. Pancreas: Unremarkable. Adrenal glands: There is a 26 mm left adrenal gland nodule. This measured 24 mm the preceding study. Kidneys: There is symmetric renal cortical enhancement. The kidneys are normal in size without hydronephrosis. Bowel: There is a left lower quadrant ostomy, and right lower quadrant ostomy. There are bilateral parastomal hernias.. There are no transition zones indicate bowel obstruction. There is rectus diastases. There is no evidence of acute diverticulitis. The stomach is mildly distended. Peritoneum: There is no intraperitoneal free air or abdominal ascites. Vasculature: The abdominal aorta is normal in course and caliber. Adenopathy: None. Pelvic viscera: The bladder, and pelvic viscera are unremarkable. Skeletal structures: No destructive osseous lesions are seen. IMPRESSION: 1. Postsurgical changes with bilateral ostomies and bilateral parastomal hernias 2. No evidence of small bowel obstruction. No evidence of free air 3. Cholelithiasis 4. Indeterminate 26 mm left adrenal gland nodule 5. Mild gastric distention Electronically signed by: Isaac Kumari M.D. 04/05/2017 6:40 AM Dictated Date/Time: 04/05/2017 6:33 AM
[2017-04-05] MEDS: LEVOTHYROXINE 88 MCG TAB PO SCH (06:46)
[2017-04-05] MEDS: ANORO ELLIPTA~ORDER AWAITING ACTION SCH ×2 (06:52→15:45)
[2017-04-05 07:29] LABS: BASO % 0.2 %; BASO ABS # 0.01 K/uL (0-0.2); EOS % 0.7 %; EOS ABS # 0.03 K/uL (0-0.5); HEMATOCRIT 31.6 % (37-47); HEMOGLOBIN 10.7 g/dL (12.0-16.0); IG# 0.01 K/uL (0.00-0.02); LYMPH % 12.2 %; LYMPH ABS # 0.54 K/uL (1.2-3.4); MEAN CELL VOLUME 96.9 fL (80-100); MEAN CORPUSCULAR HEMOGLOBIN 32.8 pg (25-34); MEAN CORPUSCULAR HGB CONC 33.9 g/dl (32-36); MEAN PLATELET VOLUME 9.4 fL (7.4-10.4); MONO % 17.8 %; MONO ABS # 0.79 K/uL (0.11-0.59); NEUT % 68.9 %; NEUT ABS # 3.05 K/uL (1.4-6.5); PLATELET COUNT 171 K/uL (130-400); RED CELL DISTRIBUTION WIDTH CV 20.3 % (11.5-14.5); RED CELL DISTRIBUTION WIDTH SD 72.2 fL (36.4-46.3); WHITE BLOOD COUNT 4.43 K/uL (4.8-10.8)
[2017-04-05 07:55] VITALS: BP 128/70; PULSE 74; TEMP 36.7; O2SAT 95
[2017-04-05 07:58] LABS: ALBUMIN 2.8 gm/dl (3.4-5.0); CALCIUM 8.6 mg/dl (8.5-10.1); CREATININE 0.97 mg/dl (0.60-1.20); POTASSIUM 3.9 mmol/L (3.5-5.1)
[2017-04-05 08:00] LABS: TOTAL PROTEIN 6.9 gm/dl (6.4-8.2)
[2017-04-05] MEDS ORDERED: FLUOROURACIL IV SCH (09:00)
[2017-04-05] MEDS: ALBUTEROL HFA 8 GM INHALER INH SCH ×4 (09:13→20:19)
[2017-04-05] MEDS ORDERED: LACTULOSE SYRUP 30 GM/45 ML UDP PO ONE (10:30)
[2017-04-05] MEDS: D5NSS + 20MEQ KCL 1,000 ML IV SCH ×2 (10:40→21:27)
[2017-04-05 11:11] VITALS: BP 109/64; PULSE 71; TEMP 36.4; O2SAT 97
[2017-04-05 12:39] VITALS: Ht 157.5 cm; Wt 78.9 kg
[2017-04-05 15:06] VITALS: BP 102/53; PULSE 72; TEMP 36.5; O2SAT 97
--- NOTE | 2017-04-05 18:09 | Surgery Consultation ---
Consultation Date of Consultation: Apr 05, 2017. Attending Physician: Marco A Valente MD Reason for Consultation: Poor ileostomy output, abdominal pain History of Present Illness Myriam is a known patient to Dr. Powers and myself who presented to emergency department late last evening with complaint of upper midline abdominal pain with radiation to the back as well as little ostomy output. Myriam underwent right hemicolectomy with end ileostomy in July of 2016 due to colon perforation and was found to have colon cancer, adenocarcinoma. She has been hospitalist for partial small bowel obstruction since her surgery. She states since she had abdominal pain and little ostomy output she was worried for bowel obstruction and came to emergency department. She denies fever, chills, nausea , vomiting, chest pain, shortness of breath, difficulty breathing, dark/black stools, blood in stools. CT scan of abdomen and pelvis in the emergency department showed no signs of obstruction. Her lipase was elevated at 1253. She was admitted under medical service for IV hydration and observation. Repeat lipase today was slightly increase to 1382. Her lactic acid was elevated on admission at 3.2 but repeat lactic acid was 1.9. Since admission she has had about 1 liter of ostomy output. She states her abdominal pain is improved and more of a generalized ache. Denies of any nausea or vomiting. Past Medical/Surgical History Medical Problems: (1) Closed head injury Status: Acute (2) Dehydration Status: Acute (3) Dehydration Status: Acute (4) Dehydration, moderate Status: Acute (5) Fall Status: Acute (6) Hypothermia Status: Acute (7) Pancreatitis Status: Acute (8) Perforated viscus Status: Acute (9) Perforation of cecum Status: Acute (10) Pressure ulcer Status: Acute (11) Rhabdomyolysis Status: Acute (12) Septic shock Status: Acute (13) UTI (urinary tract infection) Status: Acute Family History Colon cancer SISTER SISTER Heart disease MOTHER Hypertension FATHER MOTHER Social History Smoking Status: Never Smoker Drug Use: none Marital Status: single Occupation Status: retired Allergies Coded Allergies: No Known Allergies (Unverified , 04/04/17) Home Medications Scheduled Albuterol Sulfate (Proair Respiclick), 2 PUFF INH QID Ascorbic Acid (Vitamin C), 500 MG PO BID Calcium Citrate-Vitamin D (Citracal + D3 Maximum), 1 TAB PO QAM Cetirizine Hcl (Zyrtec), 5 MG PO QPM Cyanocobalamin (Vitamin B-12), 1,000 MCG PO QAM Ferrous Sulfate (Kp Ferrous Sulfate), 325 MG PO QAM Fluticasone Propionate (Nasal) (Flonase Allergy Relief), 2 SPRAYS MARI QAM Levothyroxine Sodium (Levothyroxine Sodium), 88 MCG PO QAM Magnesium Chloride (Slow-Mag Tab), 64 MG PO BID Multiple Vitamins W/ Minerals (Multivitamin Adults 50+), 1 TAB PO QAM Pravastatin (Pravachol ), 1 TAB PO QPM Senna (Senokot), 8.6 MG PO BID Sertraline (Zoloft), 50 MG PO HS Umeclidinium-Vilanterol (Anoro Ellipta 62.5-25 Mcg/INH), 1 PUFF INH QAM Scheduled PRN Aluminum Hydroxide-Mag Trisil (Gaviscon), 2 TABS PO QID PRN for GI Upset Ondansetron Hcl (Zofran), 4 MG PO Q6 PRN for Nausea Promethazine (Phenergan ), Unknown Dose PO QPM PRN for Nausea Current Inpatient Medications Current Inpatient Medications Medications (Trade) Dose Ordered Sig/[place] Route Start Time Stop Time Status Last Admin Dose Admin Ioversol (Optiray 320) 100 ml UD PRN IV 04/04/17 21:45 04/08/17 21:44 Miscellaneous (Iv Fluids Completed) 1 ea PRN PRN N/A 04/05/17 01:45 04/05/18 01:44 Cetirizine HCl (zyrTEC TAB) 5 mg QPM PO 04/05/17 21:00 05/05/17 20:59 Levothyroxine Sodium (Synthroid Tab) 88 mcg DAILYBB PO 04/05/17 06:30 05/05/17 06:29 04/05/17 06:46 88 MCG Ondansetron HCl (Zofran Tab) 4 mg Q6 PRN PO 04/05/17 04:15 05/05/17 04:14 Sertraline HCl (Zoloft Tab) 50 mg HS PO 04/05/17 21:00 05/05/17 20:59 Albuterol (Ventolin Hfa Inhaler) 2 puffs QID INH 04/05/17 08:00 05/05/17 07:59 04/05/17 17:27 2 PUFFS Pravastatin Sodium (Pravachol Tab) 20 mg QPM PO 04/05/17 21:00 05/05/17 20:59 Ondansetron HCl (Zofran Inj) 4 mg Q4H PRN IV 04/05/17 04:45 05/05/17 04:44 Fluorouracil (Fluorouracil) 4,296 mg UD IV 04/05/17 09:00 04/06/17 20:00 Potassium Chloride/Dextrose/ Sod Cl 1,000 ml @ 80 mls/hr [id number] IV 04/05/17 10:30 05/05/17 10:29 04/05/17 10:40 80 MLS/HR Review of Systems Constitutional: No fever, No chills Cardiovascular: No chest pain Abdomen: + pain, No nausea, No vomiting Genitourinary - Female: No dysuria Physical Exam Date Time Temp Pulse Resp B/P (MAP) Pulse Ox O2 Delivery O2 Flow Rate FiO2 04/05/17 16:00 Room Air 04/05/17 15:06 36.5 72 16 102/53 (69) 97 Room Air 04/05/17 11:11 36.4 71 16 109/64 (79) 97 Room Air 04/05/17 08:50 Room Air 04/05/17 07:55 36.7 74 20 128/70 (89) 95 Room Air 04/05/17 03:56 36.7 75 20 151/85 (107) 98 Room Air 04/05/17 02:46 36.9 73 18 153/83 96 04/05/17 01:06 73 153/83 96 Room Air 04/05/17 01:00 Room Air 04/04/17 20:25 36.9 86 18 153/71 95 Room Air General Appearance: WD/WN, no apparent distress Head: normocephalic, atraumatic Eyes: sclerae normal ENT: hearing grossly normal Neck: trachea midline Respiratory/Chest: lungs clear, normal breath sounds, no respiratory distress, no accessory muscle use Cardiovascular: regular rate, rhythm, no murmur Abdomen/GI: soft, no organomegaly, no pulsatile mass, + tenderness (mild tenderness in epigastrium on deep palpation, no peritonitis, rigidity, guarding , or rebound.), + abnormal bowel sounds (hypoactive bowel sounds), + pertinent finding (end ileostomy with gas present in bag, mucous fistula site covered) Back: normal inspection Extremities/Musculoskelatal: normal inspection Neurologic/Psych: alert, normal mood/affect, oriented x 3 Skin: normal color, warm/dry, no rash Laboratory Results Last 24 Hours Test 04/04/17 22:07 04/04/17 23:10 04/05/17 07:22 White Blood Count 3.50 K/uL 4.43 K/uL Red Blood Count 3.24 M/uL 3.26 M/uL Hemoglobin 10.7 g/dL 10.7 g/dL Hematocrit 31.2 % 31.6 % Mean Corpuscular Volume 96.3 fL 96.9 fL Mean Corpuscular Hemoglobin 33.0 pg 32.8 pg Mean Corpuscular Hemoglobin Concent 34.3 g/dl 33.9 g/dl Platelet Count 158 K/uL 171 K/uL Mean Platelet Volume 9.5 fL 9.4 fL Neutrophils (%) (Auto) 80.5 % 68.9 % Lymphocytes (%) (Auto) 8.9 % 12.2 % Monocytes (%) (Auto) 10.3 % 17.8 % Eosinophils (%) (Auto) 0.0 % 0.7 % Basophils (%) (Auto) 0.0 % 0.2 % Neutrophils # (Auto) 2.82 K/uL 3.05 K/uL Lymphocytes # (Auto) 0.31 K/uL 0.54 K/uL Monocytes # (Auto) 0.36 K/uL 0.79 K/uL Eosinophils # (Auto) 0.00 K/uL 0.03 K/uL Basophils # (Auto) 0.00 K/uL 0.01 K/uL RDW Standard Deviation 71.8 fL 72.2 fL RDW Coefficient of Variation 20.2 % 20.3 % Immature Granulocyte % (Auto) 0.3 % 0.2 % Immature Granulocyte # (Auto) 0.01 K/uL 0.01 K/uL Anisocytosis PRESENT PRESENT Tear Drop Cells 1+ Ovalocytes 1+ 1+ Sodium Level 134 mmol/L 137 mmol/L Potassium Level 4.2 mmol/L 3.9 mmol/L Chloride Level 102 mmol/L 107 mmol/L Carbon Dioxide Level 22 mmol/L 20 mmol/L Anion Gap 10.0 mmol/L 10.0 mmol/L Blood Urea Nitrogen 18 mg/dl 15 mg/dl Creatinine 1.19 mg/dl 0.97 mg/dl Est Creatinine Clear Calc Drug Dose 43.5 ml/min 53.4 ml/min Estimated GFR () 53.6 68.6 Estimated GFR (Non- 46.2 59.2 BUN/Creatinine Ratio 15.1 15.6 Random Glucose 139 mg/dl 100 mg/dl Lactic Acid Level 3.2 mmol/L 1.9 mmol/L Calcium Level 9.0 mg/dl 8.6 mg/dl Total Bilirubin 0.3 mg/dl 0.2 mg/dl Direct Bilirubin < 0.1 mg/dl Aspartate Amino Transf (AST/SGOT) 27 U/L 30 U/L Alanine Aminotransferase (ALT/SGPT) 32 U/L 33 U/L Alkaline Phosphatase 71 U/L 71 U/L Total Protein 7.0 gm/dl 6.9 gm/dl Albumin 2.8 gm/dl 2.8 gm/dl Lipase 1253 U/L 1382 U/L Urine Color YELLOW Urine Appearance CLEAR Urine pH 6.0 Urine Specific [place] 1.011 Urine Protein NEG Urine Glucose (UA) NEG Urine Ketones NEG Urine Occult Blood NEG Urine Nitrite NEG Urine Bilirubin NEG Urine Urobilinogen NEG Urine Leukocyte Esterase TRACE Urine WBC (Auto) 5-10 /hpf Urine RBC (Auto) 0-4 /hpf Urine Hyaline Casts (Auto) 0 /lpf Urine Epithelial Cells (Auto) 10-20 /lpf Urine Bacteria (Auto) NEG Globulin 4.1 gm/dl Albumin/Globulin Ratio 0.7 Hepatitis C Antibody Screen NEG Assessment & Plan 71 year-old female who presented with epigastric abdominal pain with radiation to back and low ostomy output. CT scan showed no findings of bowel obstruction and she since has had about 1 liter of ostomy output since admission. She did have elevated lactic acid and lipase on admission. Repeat lactic acid normal at 1.9. Lipase elevated at 1392 consistent with Acute Pancreatitis. Abdominal examination benign, soft, nondistended, tenderness in the epigastric region on deep palpation. No peritonitis or rigidity. Plan: No acute surgical intervention required. Abdomen soft and benign except for some mild epigastric abdominal pain Would continue conservative management for acute pancreatitis: IV fluids, NPO except chips, IV Pain medication as needed Repeat labs in am including lipase Continue current medical management will follow Will discuss with Dr. Powers/Dr. Contreras tomorrow morning.
--- NOTE | 2017-04-05 20:08 | Progress Note ---
Medicine Progress Note Date & Time of Visit: Apr 05, 2017 at 19:57. Subjective patient seen resting in bed, comfortable in good spirits states abdominal pain is improving compared to last night denies nausea on my exam still with very little ileostomy output denies other symptoms Objective Last 8 Hrs Date Time Temp Pulse Resp B/P (MAP) Pulse Ox O2 Delivery O2 Flow Rate FiO2 04/05/17 16:00 Room Air 04/05/17 15:06 36.5 72 16 102/53 (69) 97 Room Air Physical Exam: General- oriented x 3, not in distress, speaks in sentences with no effort Eyes-EOMI, anicteric Neck- supple, no JVD, no adenopathy Lungs- clear breath sounds bilaterally, no rales/wheezes Heart- regular rhythm; no murmur, normal rate Abdomen- normal bowel sounds, soft, nontender, ileostomy site: benign Extremities- no pretibial edema, no calf tenderness; peripheral pulses intact Neuro- alert, oriented x 3; no gross focal deficits Skin- warm & dry Laboratory Results: Last 24 Hours Test 04/04/17 22:07 04/04/17 23:10 04/05/17 07:22 White Blood Count 3.50 K/uL 4.43 K/uL Red Blood Count 3.24 M/uL 3.26 M/uL Hemoglobin 10.7 g/dL 10.7 g/dL Hematocrit 31.2 % 31.6 % Mean Corpuscular Volume 96.3 fL 96.9 fL Mean Corpuscular Hemoglobin 33.0 pg 32.8 pg Mean Corpuscular Hemoglobin Concent 34.3 g/dl 33.9 g/dl Platelet Count 158 K/uL 171 K/uL Mean Platelet Volume 9.5 fL 9.4 fL Neutrophils (%) (Auto) 80.5 % 68.9 % Lymphocytes (%) (Auto) 8.9 % 12.2 % Monocytes (%) (Auto) 10.3 % 17.8 % Eosinophils (%) (Auto) 0.0 % 0.7 % Basophils (%) (Auto) 0.0 % 0.2 % Neutrophils # (Auto) 2.82 K/uL 3.05 K/uL Lymphocytes # (Auto) 0.31 K/uL 0.54 K/uL Monocytes # (Auto) 0.36 K/uL 0.79 K/uL Eosinophils # (Auto) 0.00 K/uL 0.03 K/uL Basophils # (Auto) 0.00 K/uL 0.01 K/uL RDW Standard Deviation 71.8 fL 72.2 fL RDW Coefficient of Variation 20.2 % 20.3 % Immature Granulocyte % (Auto) 0.3 % 0.2 % Immature Granulocyte # (Auto) 0.01 K/uL 0.01 K/uL Anisocytosis PRESENT PRESENT Tear Drop Cells 1+ Ovalocytes 1+ 1+ Sodium Level 134 mmol/L 137 mmol/L Potassium Level 4.2 mmol/L 3.9 mmol/L Chloride Level 102 mmol/L 107 mmol/L Carbon Dioxide Level 22 mmol/L 20 mmol/L Anion Gap 10.0 mmol/L 10.0 mmol/L Blood Urea Nitrogen 18 mg/dl 15 mg/dl Creatinine 1.19 mg/dl 0.97 mg/dl Est Creatinine Clear Calc Drug Dose 43.5 ml/min 53.4 ml/min Estimated GFR () 53.6 68.6 Estimated GFR (Non- 46.2 59.2 BUN/Creatinine Ratio 15.1 15.6 Random Glucose 139 mg/dl 100 mg/dl Lactic Acid Level 3.2 mmol/L 1.9 mmol/L Calcium Level 9.0 mg/dl 8.6 mg/dl Total Bilirubin 0.3 mg/dl 0.2 mg/dl Direct Bilirubin < 0.1 mg/dl Aspartate Amino Transf (AST/SGOT) 27 U/L 30 U/L Alanine Aminotransferase (ALT/SGPT) 32 U/L 33 U/L Alkaline Phosphatase 71 U/L 71 U/L Total Protein 7.0 gm/dl 6.9 gm/dl Albumin 2.8 gm/dl 2.8 gm/dl Lipase 1253 U/L 1382 U/L Urine Color YELLOW Urine Appearance CLEAR Urine pH 6.0 Urine Specific [place] 1.011 Urine Protein NEG Urine Glucose (UA) NEG Urine Ketones NEG Urine Occult Blood NEG Urine Nitrite NEG Urine Bilirubin NEG Urine Urobilinogen NEG Urine Leukocyte Esterase TRACE Urine WBC (Auto) 5-10 /hpf Urine RBC (Auto) 0-4 /hpf Urine Hyaline Casts (Auto) 0 /lpf Urine Epithelial Cells (Auto) 10-20 /lpf Urine Bacteria (Auto) NEG Globulin 4.1 gm/dl Albumin/Globulin Ratio 0.7 Hepatitis C Antibody Screen NEG Assessment & Plan 71 year old female with history of Colon Cancer, s/p Resection, s/p Ileostomy last July 2016, DM, HTN, CKD 3, COPD presenting abdominal pain and low ileostomy output. ABDOMINAL PAIN from Constipation? lactulose ordered Pancreatitis? CT abdomen: pancreas unremarkable Lipase 1300 IV fluids, bowel rest, repeat Lipase in AM appreciate Surgery consultation COLON CA, s/p RESECTION, ILEOSTOMY JULY 2016 ON CHEMOTHERAPY - follows with Surgery and Oncology - currently on Chemotherapy DM TYPE 2 ISS HYPERTENSION - BP stable DISPOSITION pending Current Inpatient Medications: Current Inpatient Medications Medications (Trade) Dose Ordered Sig/[place] Route Start Time Stop Time Status Last Admin Dose Admin Ioversol (Optiray 320) 100 ml UD PRN IV 04/04/17 21:45 04/08/17 21:44 Miscellaneous (Iv Fluids Completed) 1 ea PRN PRN N/A 04/05/17 01:45 04/05/18 01:44 Cetirizine HCl (zyrTEC TAB) 5 mg QPM PO 04/05/17 21:00 05/05/17 20:59 Levothyroxine Sodium (Synthroid Tab) 88 mcg DAILYBB PO 04/05/17 06:30 05/05/17 06:29 04/05/17 06:46 88 MCG Ondansetron HCl (Zofran Tab) 4 mg Q6 PRN PO 04/05/17 04:15 05/05/17 04:14 Sertraline HCl (Zoloft Tab) 50 mg HS PO 04/05/17 21:00 05/05/17 20:59 Albuterol (Ventolin Hfa Inhaler) 2 puffs QID INH 04/05/17 08:00 05/05/17 07:59 04/05/17 17:27 2 PUFFS Pravastatin Sodium (Pravachol Tab) 20 mg QPM PO 04/05/17 21:00 05/05/17 20:59 Ondansetron HCl (Zofran Inj) 4 mg Q4H PRN IV 04/05/17 04:45 05/05/17 04:44 Fluorouracil (Fluorouracil) 4,296 mg UD IV 04/05/17 09:00 04/06/17 20:00 Potassium Chloride/Dextrose/ Sod Cl 1,000 ml @ 80 mls/hr [id number] IV 04/05/17 10:30 2/10/18 10:29 04/05/17 10:40 80 MLS/HR
[2017-04-05 20:10] VITALS: BP 98/61; PULSE 69; TEMP 36.6; O2SAT 95
[2017-04-05] MEDS: SERTRALINE HCL 50 MG TAB PO SCH (20:19)
[2017-04-05] MEDS: CETIRIZINE HCL 10 MG TAB PO SCH (20:20)
[2017-04-05] MEDS ORDERED: PRAVASTATIN SOD 20 MG TAB PO SCH (21:00)
[2017-04-05 23:13] VITALS: BP 108/66; PULSE 70; TEMP 36.8; O2SAT 96
[2017-04-06 04:04] VITALS: BP 107/67; PULSE 69; TEMP 36.7; O2SAT 95
[2017-04-06] MEDS: LEVOTHYROXINE 88 MCG TAB PO SCH (05:29)
[2017-04-06] MEDS: D5NSS + 20MEQ KCL 1,000 ML IV SCH (05:29)
[2017-04-06 06:44] LABS: HEMATOCRIT 29.5 % (37-47); HEMOGLOBIN 9.9 g/dL (12.0-16.0); MEAN CELL VOLUME 98.7 fL (80-100); MEAN CORPUSCULAR HEMOGLOBIN 33.1 pg (25-34); MEAN CORPUSCULAR HGB CONC 33.6 g/dl (32-36); MEAN PLATELET VOLUME 9.4 fL (7.4-10.4); PLATELET COUNT 141 K/uL (130-400); RED CELL DISTRIBUTION WIDTH CV 20.8 % (11.5-14.5); RED CELL DISTRIBUTION WIDTH SD 74.5 fL (36.4-46.3); WHITE BLOOD COUNT 1.83 K/uL (4.8-10.8)
[2017-04-06 07:16] LABS: ALBUMIN 2.5 gm/dl (3.4-5.0); CALCIUM 7.9 mg/dl (8.5-10.1); CREATININE 0.82 mg/dl (0.60-1.20); POTASSIUM 4.2 mmol/L (3.5-5.1)
[2017-04-06 07:46] VITALS: BP 107/67; PULSE 72; TEMP 36.6; O2SAT 94
[2017-04-06] MEDS: ALBUTEROL HFA 8 GM INHALER INH SCH ×4 (08:33→20:35)
[2017-04-06] MEDS: UMECLIDINIUM-VILANTEROL (ANORO) INH SCH (08:34)
--- NOTE | 2017-04-06 09:24 | Progress Note ---
Medicine Progress Note Date & Time of Visit: Apr 06, 2017 at 09:20. Subjective seen resting in bed, comfortable in good spirits states abdominal pain is improving, now moderate, non radiating, no nausea, no fever/chills reports ileostomy output x 4 yesterday, 1 today, all loose denies other symptoms Objective Last 8 Hrs Date Time Temp Pulse Resp B/P (MAP) Pulse Ox O2 Delivery O2 Flow Rate FiO2 04/06/17 07:46 36.6 72 16 107/67 (80) 94 Room Air 04/06/17 04:04 36.7 69 20 107/67 (80) 95 Room Air Physical Exam: General- oriented x 3, not in distress, speaks in sentences with no effort Eyes-anicteric Neck- no JVD, no adenopathy Lungs- clear BS BL, no rales/wheezes Heart- regular rhythm; no murmur, normal rate Abdomen- normal bowel sounds, soft, mild epigastric tenderness, ileostomy site: benign Extremities- no pretibial edema, no calf tenderness Neuro- alert, oriented x 3; no gross focal deficits Skin- warm & dry Laboratory Results: Last 24 Hours Test 04/06/17 06:31 White Blood Count 1.83 K/uL Red Blood Count 2.99 M/uL Hemoglobin 9.9 g/dL Hematocrit 29.5 % Mean Corpuscular Volume 98.7 fL Mean Corpuscular Hemoglobin 33.1 pg Mean Corpuscular Hemoglobin Concent 33.6 g/dl RDW Standard Deviation 74.5 fL RDW Coefficient of Variation 20.8 % Platelet Count 141 K/uL Mean Platelet Volume 9.4 fL Sodium Level 140 mmol/L Potassium Level 4.2 mmol/L Chloride Level 112 mmol/L Carbon Dioxide Level 22 mmol/L Anion Gap 6.0 mmol/L Blood Urea Nitrogen 10 mg/dl Creatinine 0.82 mg/dl Est Creatinine Clear Calc Drug Dose 62.6 ml/min Estimated GFR () 84.0 Estimated GFR (Non- 72.5 BUN/Creatinine Ratio 12.4 Random Glucose 103 mg/dl Calcium Level 7.9 mg/dl Total Bilirubin 0.3 mg/dl Aspartate Amino Transf (AST/SGOT) 38 U/L Alanine Aminotransferase (ALT/SGPT) 36 U/L Alkaline Phosphatase 56 U/L Total Protein 6.0 gm/dl Albumin 2.5 gm/dl Globulin 3.5 gm/dl Albumin/Globulin Ratio 0.7 Lipase 1371 U/L Assessment & Plan 71 year old female with history of Colon Cancer, s/p Resection, s/p Ileostomy last July 2016, DM, HTN, CKD 3, COPD presenting abdominal pain and low ileostomy output. ABDOMINAL PAIN possible Pancreatitis CT abdomen: pancreas and liver unremarkable, but (+) cholelithiasis Lipase still at 1300 LFTs ok -- continue NPO change fluids to Lactated Ringers will consult GI may need MRCP from Constipation? lactulose ordered now has good ileostomy output appreciate Surgery consultation COLON CA, s/p RESECTION, ILEOSTOMY JULY 2016 ON CHEMOTHERAPY - follows with Surgery and Oncology - currently on Chemotherapy- 5 FU DM TYPE 2 ISS HYPERTENSION - BP stable DISPOSITION pending lives at home, anticipate d/c home Current Inpatient Medications: Current Inpatient Medications Medications (Trade) Dose Ordered Sig/[place] Route Start Time Stop Time Status Last Admin Dose Admin Ioversol (Optiray 320) 100 ml UD PRN IV 04/04/17 21:45 04/08/17 21:44 Miscellaneous (Iv Fluids Completed) 1 ea PRN PRN N/A 04/05/17 01:45 04/05/18 01:44 Cetirizine HCl (zyrTEC TAB) 5 mg QPM PO 04/05/17 21:00 05/05/17 20:59 04/05/17 20:20 5 MG Levothyroxine Sodium (Synthroid Tab) 88 mcg DAILYBB PO 04/05/17 06:30 05/05/17 06:29 04/06/17 05:29 88 MCG Ondansetron HCl (Zofran Tab) 4 mg Q6 PRN PO 04/05/17 04:15 05/05/17 04:14 Sertraline HCl (Zoloft Tab) 50 mg HS PO 04/05/17 21:00 05/05/17 20:59 04/05/17 20:19 50 MG Albuterol (Ventolin Hfa Inhaler) 2 puffs QID INH 04/05/17 08:00 05/05/17 07:59 04/06/17 08:33 2 PUFFS Pravastatin Sodium (Pravachol Tab) 20 mg QPM PO 04/05/17 21:00 05/05/17 20:59 04/05/17 20:19 20 MG Ondansetron HCl (Zofran Inj) 4 mg Q4H PRN IV 04/05/17 04:45 05/05/17 04:44 Fluorouracil (Fluorouracil) 4,296 mg UD IV 04/05/17 09:00 04/06/17 20:00 Potassium Chloride/Dextrose/ Sod Cl 1,000 ml @ 125 mls/hr Q8H IV 04/05/17 10:30 05/05/17 10:29 04/06/17 05:29 125 MLS/HR
[2017-04-06] MEDS: D5W AND LACTATED RINGERS 1,000 ML IV SCH ×2 (10:01→17:09)
--- NOTE | 2017-04-06 10:22 | Surgery Progress Note ---
Surgery Progress Note Date of Service Apr 06, 2017. Subjective Post OP Day: HD # 1 + feeling well, + bowel movement (about 150 cc output of ostomy this morning), + flatus, + pain controlled, No complaints, No chest pain, No SOB, No nausea, No vomiting Objective Vital Signs: Date Time Temp Pulse Resp B/P (MAP) Pulse Ox O2 Delivery O2 Flow Rate FiO2 04/06/17 07:46 36.6 72 16 107/67 (80) 94 Room Air 04/06/17 04:04 36.7 69 20 107/67 (80) 95 Room Air 04/06/17 00:15 Room Air 04/05/17 23:13 36.8 70 18 108/66 (80) 96 Room Air 04/05/17 20:10 36.6 69 16 98/61 (73) 95 Room Air 04/05/17 16:00 Room Air 04/05/17 15:06 36.5 72 16 102/53 (69) 97 Room Air 04/05/17 11:11 36.4 71 16 109/64 (79) 97 Room Air General Appearance: WD/WN, no apparent distress Head: normocephalic, atraumatic Neck: trachea midline Respiratory/Chest: lungs clear, normal breath sounds, no respiratory distress, no accessory muscle use Cardiovascular: regular rate, rhythm, no murmur Abdomen: normal bowel sounds, non tender, non distended, soft, + pertinent finding (end ileostomy with gas in bag, 150 cc output this am per patient, mucous fistula in left upper abdomen, covered with dressing, midline laparotomy scar present) Laboratory Results: Results Past 24 Hours Test 04/06/17 06:31 Range/Units White Blood Count 1.83 4.8-10.8 K/uL Red Blood Count 2.99 4.2-5.4 M/uL Hemoglobin 9.9 12.0-16.0 g/dL Hematocrit 29.5 37-47 % Mean Corpuscular Volume 98.7 80-100 fL Mean Corpuscular Hemoglobin 33.1 25-34 pg Mean Corpuscular Hemoglobin Concent 33.6 32-36 g/dl RDW Standard Deviation 74.5 36.4-46.3 fL RDW Coefficient of Variation 20.8 11.5-14.5 % Platelet Count 141 130-400 K/uL Mean Platelet Volume 9.4 7.4-10.4 fL Sodium Level 140 136-145 mmol/L Potassium Level 4.2 3.5-5.1 mmol/L Chloride Level 112 98-107 mmol/L Carbon Dioxide Level 22 21-32 mmol/L Anion Gap 6.0 3-11 mmol/L Blood Urea Nitrogen 10 7-18 mg/dl Creatinine 0.82 0.60-1.20 mg/dl Est Creatinine Clear Calc Drug Dose 62.6 ml/min Estimated GFR () 84.0 Estimated GFR (Non- 72.5 BUN/Creatinine Ratio 12.4 10-20 Random Glucose 103 70-99 mg/dl Calcium Level 7.9 8.5-10.1 mg/dl Total Bilirubin 0.3 0.2-1 mg/dl Aspartate Amino Transf (AST/SGOT) 38 15-37 U/L Alanine Aminotransferase (ALT/SGPT) 36 12-78 U/L Alkaline Phosphatase 56 45-117 U/L Total Protein 6.0 6.4-8.2 gm/dl Albumin 2.5 3.4-5.0 gm/dl Globulin 3.5 2.5-4.0 gm/dl Albumin/Globulin Ratio 0.7 0.9-2 Lipase 1371 73-393 U/L Assessment & Plan 71 year-old female who presented to emergency room with epigastric abdominal pain and decreased ostomy output concern for bowel obstruction. CT scan showed no findings of bowel obstruction. Her lipase was elevated in the emergency room and yesterday at 1382. Epigastric abdominal pain much improved today. Abdomen completely soft, nondistended, nontender, normal bowel sounds, good ostomy output. Lipase still elevated today at 1371. No elevation in LFTS, total bilirubin, or alk phos. Plan: Would continue conservative management for pancreatitis: IV fluids, IV pain management as needed, IV Zofran, and NPO Await gastroenterology consultation and recommendations No acute surgical intervention required Continue current medical management Follow labs including lipase Dr. Contreras has seen and examined patient, agrees with above
--- NOTE | 2017-04-06 10:42 | Gastrointestinal Consultation ---
Gastrointestinal Consultation Date of Consultation: Apr 06, 2017 Attending Physician: Ambrosio Consulting Physician: Dr. Camarillo Reason for Consultation: Pancreatitis History of Present Illness Patient is a 71 year old female patient of Dr. 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 Bon Whitten) who presented to the ED on Sunday for abdominal amd back pain and decreased ileostomy output on 04/04/17. GI is consulted for pancreatitis. She noticed "indigestion, nausea," as well as mild epigastric discomfort with a sharp pain between the shoulder blades, though more to the left side of the back. This discomfort began around 3pm on Sunday. She had completed her chem treatment (5FU) around 1PM. She is on chemo every 2 weeks, having completed 8 of 12 treatments. She noticed that day that she had very little ostomy output, about 4 oz all day. She presented that evening. On arrival at [facility], lipase was elevated at 1285 and remains elevated today at 1300. CT scan w/o pancreatic or biliary ductal abnormalities but cholelithiasis was noted. She denies any RUQ after eating. She has had "indigestion and reflux quite a bit for years." She has been kept on bowel rest since arrival 2 days ago. Her pain dissipated around noon yesterday. She is awake, alert, oriented, a good historian, and is pain free. 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 She does not drink any alcohol (none at all for 8 months and no hx of increased alcohol. Past Medical/Surgical History Medical Problems: (1) Closed head injury Status: Acute (2) Dehydration Status: Acute (3) Dehydration Status: Acute (4) Dehydration, moderate Status: Acute (5) Fall Status: Acute (6) Hypothermia Status: Acute (7) Pancreatitis Status: Acute (8) Perforated viscus Status: Acute (9) Perforation of cecum Status: Acute (10) Pressure ulcer Status: Acute (11) Rhabdomyolysis Status: Acute (12) Septic shock Status: Acute (13) UTI (urinary tract infection) Status: Acute Past Medical History: 1. CKD 2. Colon cancer 3. COPD 4. Depression 5. DM-2 6. Fungemia 7. Hypothyroidism 8. Colon perforation 9. Peritonitis 10. Sepsis Past Surgical History: 1. Colon resection and Ileostomy 2. Oophorectomy Family History Colon cancer SISTER SISTER Heart disease MOTHER Hypertension FATHER MOTHER Social History Smoking Status: Never Smoker Alcohol Use: none Drug Use: none Marital Status: single Occupation Status: retired Allergies Coded Allergies: No Known Allergies (Unverified , 04/04/17) Current Medications Home Meds and Scripts Medications Dose Route/Sig Max Daily Dose Days Date Category Dose Instructions Pravachol (Pravastatin Sodium) Unknown Strength Tab 1 Tab PO QPM 04/04/17 Reported Phenergan (Promethazine HCl) Unknown Strength Tab Unknown Dose PO QPM PRN 04/04/17 Reported TAKE 1 TABLET AT BEDTIME FOR 4 NIGHTS IN A ROW AFTER RECEIVING CHEMO Senokot (Senna) 8.6 Mg Tab 8.6 Mg PO BID 12/22/16 Reported Anoro Ellipta 62.5-25 Mcg/INH (Umeclidinium-Vilanterol) 1 Aer Aer 1 Puff INH QAM 12/22/16 Reported Multivitamin Adults 50+ (Multiple Vitamins W/ Minerals) 1 Tab Tab 1 Tab PO QAM 12/22/16 Reported Zofran (Ondansetron HCl) 4 Mg Tab 4 Mg PO Q6 PRN 11/07/16 Reported Vitamin B-12 (Cyanocobalamin) 1,000 Mcg Tab 1,000 Mcg PO QAM 10/31/16 Reported Kp Ferrous Sulfate (Ferrous Sulfate) 325 Mg Tab 325 Mg PO QAM 30 10/31/16 Reported Slow-Mag Tab (Magnesium Chloride) 64 Mg Tabcr 64 Mg PO BID 30 10/23/16 Rx Levothyroxine Sodium 88 Mcg Tab 88 Mcg PO QAM 10/19/16 Reported Gaviscon (Aluminum Hydroxide-Mag Trisil) 1 Chw Chw 2 Tabs PO QID PRN 07/30/16 Reported Vitamin C (Ascorbic Acid) 500 Mg Tab 500 Mg PO BID 07/30/16 Reported Citracal + D3 Maximum (Calcium Citrate-Vitamin D) 1 Tab Tab 1 Tab PO QAM 07/16/16 Reported Zyrtec (Cetirizine Hcl) 5 Mg Tab 5 Mg PO QPM 07/16/16 Reported Flonase Allergy Relief (Fluticasone Propionate (Nasal)) 50 Mcg/Act Spr 2 Sprays MARI QAM 07/16/16 Reported Proair Respiclick (Albuterol Sulfate) 108 Mcg/Act Aer 2 Puff INH QID 07/16/16 Reported Zoloft (Sertraline HCl) 50 Mg Tab 50 Mg PO HS 07/16/16 Reported Review of Systems Constitutional: No fever, No chills, No sweats, No weight loss, No weakness Eyes: No eye pain, No redness ENT: No sore throat, No trouble swallowing, No pain on swallowing Respiratory: No cough, No wheezing, No shortness of breath, No dyspnea on exertion Cardiac: No chest pain, No edema, No palpitations Abdomen: + see HPI, + pain, + nausea, No vomiting Neuro: No memory loss, No weakness, No numbness/tingling, No vertigo, No balance problems Psych: No depression symptoms, No anxiety, No insomnia Heme: No abnormal bleeding/bruising, No night sweats Endo: No excessive thirst, No excessive urination Skin: No rash, No itch, No new/changing skin lesions, No jaundice Physical Exam Date Time Temp Pulse Resp B/P (MAP) Pulse Ox O2 Delivery O2 Flow Rate FiO2 04/06/17 07:46 36.6 72 16 107/67 (80) 94 Room Air 04/06/17 04:04 36.7 69 20 107/67 (80) 95 Room Air 04/06/17 00:15 Room Air 04/05/17 23:13 36.8 70 18 108/66 (80) 96 Room Air 04/05/17 20:10 36.6 69 16 98/61 (73) 95 Room Air 04/05/17 16:00 Room Air 04/05/17 15:06 36.5 72 16 102/53 (69) 97 Room Air 04/05/17 11:11 36.4 71 16 109/64 (79) 97 Room Air General Appearance: no apparent distress Eyes: normal inspection, EOMI Neck: supple, no adenopathy, thyroid normal Respiratory/Chest: chest non-tender, lungs clear, normal breath sounds, no accessory muscle use Cardiovascular: regular rate, rhythm, no JVD, no murmur Abdomen: normal bowel sounds, soft, no organomegaly, + tenderness (mild in the epigastric area) Extremities: normal inspection, no pedal edema, normal capillary refill Neurologic/Psych: alert, normal mood/affect, oriented x 3 Skin: normal color, no jaundice, warm/dry, no rash Laboratory Results Last 24 Hours Test 04/06/17 06:31 White Blood Count 1.83 K/uL Red Blood Count 2.99 M/uL Hemoglobin 9.9 g/dL Hematocrit 29.5 % Mean Corpuscular Volume 98.7 fL Mean Corpuscular Hemoglobin 33.1 pg Mean Corpuscular Hemoglobin Concent 33.6 g/dl RDW Standard Deviation 74.5 fL RDW Coefficient of Variation 20.8 % Platelet Count 141 K/uL Mean Platelet Volume 9.4 fL Sodium Level 140 mmol/L Potassium Level 4.2 mmol/L Chloride Level 112 mmol/L Carbon Dioxide Level 22 mmol/L Anion Gap 6.0 mmol/L Blood Urea Nitrogen 10 mg/dl Creatinine 0.82 mg/dl Est Creatinine Clear Calc Drug Dose 62.6 ml/min Estimated GFR () 84.0 Estimated GFR (Non- 72.5 BUN/Creatinine Ratio 12.4 Random Glucose 103 mg/dl Calcium Level 7.9 mg/dl Total Bilirubin 0.3 mg/dl Aspartate Amino Transf (AST/SGOT) 38 U/L Alanine Aminotransferase (ALT/SGPT) 36 U/L Alkaline Phosphatase 56 U/L Total Protein 6.0 gm/dl Albumin 2.5 gm/dl Globulin 3.5 gm/dl Albumin/Globulin Ratio 0.7 Lipase 1371 U/L CT abd/pelvis 04/04/16: 1. Postsurgical changes with bilateral ostomies and bilateral parastomal hernias 2. No evidence of small bowel obstruction. No evidence of free air 3. Cholelithiasis 4. Indeterminate 26 mm left adrenal gland nodule 5. Mild gastric distention Impression Patient is a 71 year old female with mild, acute pancreatitis, much improved. The etiology is most likely from the chemotherapy, however, having passed a gallstone is also a possibility though would have expected biliary ductal dilation or elevated LFT if from gallstones. Plan 1. Increase IV fluids. 2. May start with clear liquids po.
[2017-04-06 11:26] VITALS: BP 128/73; PULSE 68; TEMP 36.7; O2SAT 100
[2017-04-06 16:24] VITALS: BP 134/81; PULSE 67; TEMP 36.7; O2SAT 98
[2017-04-06 20:06] VITALS: BP 123/67; PULSE 72; TEMP 36.7; O2SAT 95
[2017-04-06] MEDS: CETIRIZINE HCL 10 MG TAB PO SCH (20:36)
[2017-04-06] MEDS: SERTRALINE HCL 50 MG TAB PO SCH (20:37)
[2017-04-07 00:08] VITALS: BP 114/66; PULSE 69; TEMP 36.6; O2SAT 95
[2017-04-07] MEDS: D5W AND LACTATED RINGERS 1,000 ML IV SCH ×3 (01:38→17:27)
[2017-04-07 03:56] VITALS: BP 115/67; PULSE 66; TEMP 36.4; O2SAT 97
[2017-04-07] MEDS: LEVOTHYROXINE 88 MCG TAB PO SCH (06:16)
[2017-04-07] MEDS: ALBUTEROL HFA 8 GM INHALER INH SCH ×4 (07:46→20:44)
[2017-04-07] MEDS: UMECLIDINIUM-VILANTEROL (ANORO) INH SCH (07:46)
[2017-04-07 07:52] VITALS: BP 110/69; PULSE 66; TEMP 36.8; O2SAT 96
[2017-04-07 14:18] LABS: ALBUMIN 2.6 gm/dl (3.4-5.0); CALCIUM 8.2 mg/dl (8.5-10.1); CREATININE 0.77 mg/dl (0.60-1.20); TOTAL PROTEIN 6.7 gm/dl (6.4-8.2)
[2017-04-07 14:19] LABS: POTASSIUM 3.5 mmol/L (3.5-5.1)
[2017-04-07 15:36] VITALS: BP 132/82; PULSE 65; TEMP 36.6; O2SAT 99
--- NOTE | 2017-04-07 18:18 | Progress Note ---
Medicine Progress Note Date & Time of Visit: Apr 07, 2017 at 18:15. Subjective seen resting in bed, comfortable smiling states she feels improved today no abdominal pain, nausea tolerating full liquids has good Ileostomy output Objective Last 8 Hrs Date Time Temp Pulse Resp B/P (MAP) Pulse Ox O2 Delivery O2 Flow Rate FiO2 04/07/17 16:20 Room Air 04/07/17 15:36 36.6 65 18 132/82 (99) 99 Room Air Physical Exam: General- oriented x 3, not in distress, speaks in sentences with no effort Eyes-anicteric Neck- no JVD Lungs- clear BS BL, no rales/wheezes Heart- regular rhythm; no murmur, normal rate Abdomen- normal bowel sounds, soft, No epigastric tenderness, ileostomy site: benign Extremities- no pretibial edema, no calf tenderness Neuro- alert, oriented x 3; no gross focal deficits Skin- warm & dry Laboratory Results: Last 24 Hours Test 04/07/17 12:57 Sodium Level 135 mmol/L Potassium Level 3.5 mmol/L Chloride Level 106 mmol/L Carbon Dioxide Level 21 mmol/L Anion Gap 8.0 mmol/L Blood Urea Nitrogen 5 mg/dl Creatinine 0.77 mg/dl Est Creatinine Clear Calc Drug Dose 66.5 ml/min Estimated GFR () 90.7 Estimated GFR (Non- 78.2 BUN/Creatinine Ratio 6.8 Random Glucose 101 mg/dl Calcium Level 8.2 mg/dl Total Bilirubin 0.4 mg/dl Direct Bilirubin 0.1 mg/dl Aspartate Amino Transf (AST/SGOT) 37 U/L Alanine Aminotransferase (ALT/SGPT) 33 U/L Alkaline Phosphatase 58 U/L Total Protein 6.7 gm/dl Albumin 2.6 gm/dl Lipase 987 U/L Assessment & Plan 71 year old female with history of Colon Cancer, s/p Resection, s/p Ileostomy last July 2016, DM, HTN, CKD 3, COPD presenting abdominal pain and low ileostomy output. ABDOMINAL PAIN possible Pancreatitis CT abdomen: pancreas and liver unremarkable, but (+) cholelithiasis Lipase trending down LFTs ok -- tolerating fulls, advance to soft tomorrow if continues to do better continue LR -- GI consulted from Constipation? lactulose ordered now has good ileostomy output appreciate Surgery consultation COLON CA, s/p RESECTION, ILEOSTOMY JULY 2016 ON CHEMOTHERAPY - follows with Surgery and Oncology - currently on Chemotherapy- 5 FU DM TYPE 2 ISS HYPERTENSION - BP stable DISPOSITION pending lives at home, anticipate d/c home Current Inpatient Medications: Current Inpatient Medications Medications (Trade) Dose Ordered Sig/[place] Route Start Time Stop Time Status Last Admin Dose Admin Ioversol (Optiray 320) 100 ml UD PRN IV 04/04/17 21:45 04/08/17 21:44 Miscellaneous (Iv Fluids Completed) 1 ea PRN PRN N/A 04/05/17 01:45 04/05/18 01:44 Cetirizine HCl (zyrTEC TAB) 5 mg QPM PO 04/05/17 21:00 05/05/17 20:59 04/06/17 20:36 5 MG Levothyroxine Sodium (Synthroid Tab) 88 mcg DAILYBB PO 04/05/17 06:30 05/05/17 06:29 04/07/17 06:16 88 MCG Ondansetron HCl (Zofran Tab) 4 mg Q6 PRN PO 04/05/17 04:15 05/05/17 04:14 Sertraline HCl (Zoloft Tab) 50 mg HS PO 04/05/17 21:00 05/05/17 20:59 04/06/17 20:37 50 MG Albuterol (Ventolin Hfa Inhaler) 2 puffs QID INH 04/05/17 08:00 05/05/17 07:59 04/07/17 17:27 2 PUFFS Ondansetron HCl (Zofran Inj) 4 mg Q4H PRN IV 04/05/17 04:45 05/05/17 04:44 Dextrose/Lactated Ringer's 1,000 ml @ 125 mls/hr Q8H IV 04/06/17 09:30 05/06/17 09:29 04/07/17 17:27 125 MLS/HR Heparin Sodium (Porcine) (Heparin 100 Unit/ml 5ml Flush) 5 ml PRN PRN IV 04/06/17 11:15 05/06/17 11:14 04/07/17 09:19 5 ML
[2017-04-07 19:12] VITALS: BP 130/76; PULSE 73; TEMP 36.8; O2SAT 99
[2017-04-07] MEDS: CETIRIZINE HCL 10 MG TAB PO SCH (20:44)
[2017-04-07] MEDS: SERTRALINE HCL 50 MG TAB PO SCH (20:44)
[2017-04-08] VITALS (7 sets, daily range): BP systolic 121–158; BP diastolic 72–75; PULSE 64–76; TEMP 36.4–36.7; O2SAT 95–98
[2017-04-08] MEDS: D5W AND LACTATED RINGERS 1,000 ML IV SCH ×3 (01:32→17:31)
[2017-04-08] MEDS: LEVOTHYROXINE 88 MCG TAB PO SCH (06:16)
[2017-04-08 06:48] LABS: CALCIUM 8.3 mg/dl (8.5-10.1); CREATININE 0.67 mg/dl (0.60-1.20); POTASSIUM 3.5 mmol/L (3.5-5.1)
[2017-04-08] MEDS: UMECLIDINIUM-VILANTEROL (ANORO) INH SCH (07:54)
[2017-04-08] MEDS: ALBUTEROL HFA 8 GM INHALER INH SCH ×4 (07:54→20:08)
--- NOTE | 2017-04-08 10:35 | Surgery Progress Note ---
Surgery Progress Note Date of Service Apr 08, 2017. Subjective + feeling well pt is doing better, no abdominal pain, Objective Vital Signs: Date Time Temp Pulse Resp B/P (MAP) Pulse Ox O2 Delivery O2 Flow Rate FiO2 04/08/17 08:12 36.5 64 17 123/72 (89) 95 Room Air 04/08/17 03:56 36.7 64 18 137/72 (93) 96 Room Air 04/08/17 01:00 Room Air 04/08/17 00:26 36.7 73 16 144/74 (97) 97 Room Air 04/07/17 19:12 36.8 73 18 130/76 (94) 99 Room Air 04/07/17 16:20 Room Air 04/07/17 15:36 36.6 65 18 132/82 (99) 99 Room Air General Appearance: WD/WN, no apparent distress Head: normocephalic Neck: supple, no JVD Respiratory/Chest: chest non-tender, lungs clear Cardiovascular: regular rate, rhythm, no edema, no gallop, no JVD Abdomen: normal bowel sounds, non tender, non distended, soft Extremities: normal range of motion, non-tender, normal inspection Laboratory Results: Results Past 24 Hours Test 04/07/17 12:57 04/08/17 05:46 Range/Units Sodium Level 135 139 136-145 mmol/L Potassium Level 3.5 3.5 3.5-5.1 mmol/L Chloride Level 106 105 98-107 mmol/L Carbon Dioxide Level 21 26 21-32 mmol/L Anion Gap 8.0 8.0 3-11 mmol/L Blood Urea Nitrogen 5 5 7-18 mg/dl Creatinine 0.77 0.67 0.60-1.20 mg/dl Est Creatinine Clear Calc Drug Dose 66.5 76.0 ml/min Estimated GFR () 90.7 103.2 Estimated GFR (Non- 78.2 89.1 BUN/Creatinine Ratio 6.8 7.9 10-20 Random Glucose 101 92 70-99 mg/dl Calcium Level 8.2 8.3 8.5-10.1 mg/dl Total Bilirubin 0.4 0.2-1 mg/dl Direct Bilirubin 0.1 0-0.2 mg/dl Aspartate Amino Transf (AST/SGOT) 37 15-37 U/L Alanine Aminotransferase (ALT/SGPT) 33 12-78 U/L Alkaline Phosphatase 58 45-117 U/L Total Protein 6.7 6.4-8.2 gm/dl Albumin 2.6 3.4-5.0 gm/dl Lipase 987 634 73-393 U/L Assessment & Plan doing better, lipase is down pt can D/C home tomorrow F/U Dr. Powers 2 weeks,
--- NOTE | 2017-04-08 18:17 | Progress Note ---
Medicine Progress Note Date & Time of Visit: Apr 08, 2017 at 18:15. Subjective resting , comfortable, in good spirits states she continues to feel better denies abdominal pain, nausea eating well good ileostomy output denies other symptoms Objective Last 8 Hrs Date Time Temp Pulse Resp B/P (MAP) Pulse Ox O2 Delivery O2 Flow Rate FiO2 04/08/17 16:10 Room Air 04/08/17 14:52 36.5 76 16 158/74 (102) 98 04/08/17 11:21 36.6 65 17 121/72 (88) 95 Physical Exam: General- oriented x 3, not in distress, speaks in sentences with no effort Eyes-anicteric Lungs- clear BS bilaterally Heart- regular rhythm; no murmur, normal rate Abdomen- normal bowel sounds, non distended soft, No epigastric tenderness, ileostomy site: benign Extremities- no pretibial edema, no calf tenderness Neuro- alert, oriented x 3; no gross focal deficits Skin- warm & dry Laboratory Results: Last 24 Hours Test 04/08/17 05:46 Sodium Level 139 mmol/L Potassium Level 3.5 mmol/L Chloride Level 105 mmol/L Carbon Dioxide Level 26 mmol/L Anion Gap 8.0 mmol/L Blood Urea Nitrogen 5 mg/dl Creatinine 0.67 mg/dl Est Creatinine Clear Calc Drug Dose 76.0 ml/min Estimated GFR () 103.2 Estimated GFR (Non- 89.1 BUN/Creatinine Ratio 7.9 Random Glucose 92 mg/dl Calcium Level 8.3 mg/dl Lipase 634 U/L Assessment & Plan 71 year old female with history of Colon Cancer, s/p Resection, s/p Ileostomy last July 2016, DM, HTN, CKD 3, COPD presenting abdominal pain and low ileostomy output. ABDOMINAL PAIN possible Pancreatitis CT abdomen: pancreas and liver unremarkable, but (+) cholelithiasis Lipase continues to trend down LFTs ok -- advanced diet to regular continue LRk, but lower dose -- GI consulted from Constipation? lactulose ordered now has good ileostomy output appreciate Surgery consultation COLON CA, s/p RESECTION, ILEOSTOMY JULY 2016 ON CHEMOTHERAPY - follows with Surgery and Oncology - currently on Chemotherapy- 5 FU DM TYPE 2 ISS HYPERTENSION - BP stable DISPOSITION pending lives at home, anticipate d/c home Current Inpatient Medications: Current Inpatient Medications Medications (Trade) Dose Ordered Sig/[place] Route Start Time Stop Time Status Last Admin Dose Admin Ioversol (Optiray 320) 100 ml UD PRN IV 04/04/17 21:45 04/08/17 21:44 Miscellaneous (Iv Fluids Completed) 1 ea PRN PRN N/A 04/05/17 01:45 04/05/18 01:44 Cetirizine HCl (zyrTEC TAB) 5 mg QPM PO 04/05/17 21:00 05/05/17 20:59 04/07/17 20:44 5 MG Levothyroxine Sodium (Synthroid Tab) 88 mcg DAILYBB PO 04/05/17 06:30 05/05/17 06:29 04/08/17 06:16 88 MCG Ondansetron HCl (Zofran Tab) 4 mg Q6 PRN PO 04/05/17 04:15 05/05/17 04:14 Sertraline HCl (Zoloft Tab) 50 mg HS PO 04/05/17 21:00 05/05/17 20:59 04/07/17 20:44 50 MG Albuterol (Ventolin Hfa Inhaler) 2 puffs QID INH 04/05/17 08:00 05/05/17 07:59 04/08/17 17:31 2 PUFFS Ondansetron HCl (Zofran Inj) 4 mg Q4H PRN IV 04/05/17 04:45 05/05/17 04:44 Dextrose/Lactated Ringer's 1,000 ml @ 125 mls/hr Q8H IV 04/06/17 09:30 05/06/17 09:29 04/08/17 17:31 125 MLS/HR Heparin Sodium (Porcine) (Heparin 100 Unit/ml 5ml Flush) 5 ml PRN PRN IV 04/06/17 11:15 05/06/17 11:14 04/08/17 05:44 5 ML
[2017-04-08] MEDS: SERTRALINE HCL 50 MG TAB PO SCH (20:07)
[2017-04-08] MEDS: CETIRIZINE HCL 10 MG TAB PO SCH (20:07)
[2017-04-08] MEDS: HEPARIN SOD 5000 UNIT/0.5 ML CARP SQ SCH (20:10)
[2017-04-09 00:20] VITALS: O2SAT 97
[2017-04-09] MEDS: D5W AND LACTATED RINGERS 1,000 ML IV SCH (01:41)
[2017-04-09] MEDS ORDERED: NURSING VERBAL MED ORDER ONE (03:45)
[2017-04-09 04:02] VITALS: BP 111/64; PULSE 67; TEMP 36.8; O2SAT 95
[2017-04-09] MEDS: LEVOTHYROXINE 88 MCG TAB PO SCH (06:14)
[2017-04-09] MEDS: HEPARIN SOD 5000 UNIT/0.5 ML CARP SQ SCH ×2 (06:16→14:45)
[2017-04-09 06:21] LABS: CALCIUM 8.5 mg/dl (8.5-10.1); CREATININE 0.79 mg/dl (0.60-1.20); POTASSIUM 3.8 mmol/L (3.5-5.1)
[2017-04-09] MEDS: UMECLIDINIUM-VILANTEROL (ANORO) INH SCH (07:43)
[2017-04-09] MEDS: ALBUTEROL HFA 8 GM INHALER INH SCH ×2 (07:43→11:39)
[2017-04-09 07:59] VITALS: BP 122/76; PULSE 64; TEMP 36.4; O2SAT 97
--- NOTE | 2017-04-09 10:17 | Gastroenterology Progress Note ---
Progress Note Date of Service: Apr 09, 2017 Subjective Pt evaluation today including: conversation w/ patient, physical exam, chart review, lab review Pt was seen and evaluated, chart reviewed. 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 This AM she tells me she feels well. Has been tolerating diet w/o pain. Notes she has some mild upper abd soreness. Notes normal output - no black/bloody stools. No fever, chills, CP, SOB. CT abd/pelvis 04/04/16: Postsurgical changes with bilateral ostomies and bilateral parastomal hernias No evidence of small bowel obstruction. No evidence of free air Cholelithiasis Indeterminate 26 mm left adrenal gland nodule Mild gastric distention Review of Systems Constitutional: + chills, No fever Respiratory: No cough Cardiac: No chest pain Abdomen: No pain, No nausea, No vomiting, No diarrhea, No constipation Medications Current Inpatient Medications Medications (Trade) Dose Ordered Sig/[place] Route Start Time Stop Time Status Last Admin Dose Admin Miscellaneous (Iv Fluids Completed) 1 ea PRN PRN N/A 04/05/17 01:45 04/05/18 01:44 Cetirizine HCl (zyrTEC TAB) 5 mg QPM PO 04/05/17 21:00 05/05/17 20:59 04/08/17 20:07 5 MG Levothyroxine Sodium (Synthroid Tab) 88 mcg DAILYBB PO 04/05/17 06:30 05/05/17 06:29 04/09/17 06:14 88 MCG Ondansetron HCl (Zofran Tab) 4 mg Q6 PRN PO 04/05/17 04:15 05/05/17 04:14 Sertraline HCl (Zoloft Tab) 50 mg HS PO 04/05/17 21:00 05/05/17 20:59 04/08/17 20:07 50 MG Albuterol (Ventolin Hfa Inhaler) 2 puffs QID INH 04/05/17 08:00 05/05/17 07:59 04/09/17 07:43 2 PUFFS Ondansetron HCl (Zofran Inj) 4 mg Q4H PRN IV 04/05/17 04:45 05/05/17 04:44 Heparin Sodium (Porcine) (Heparin 100 Unit/ml 5ml Flush) 5 ml PRN PRN IV 04/06/17 11:15 05/06/17 11:14 04/08/17 05:44 5 ML Heparin Sodium (Porcine) (Heparin Sq 5000 Unit/0.5ml) 5,000 unit Q8 SQ 04/08/17 22:00 05/08/17 21:59 04/09/17 06:16 5,000 UNIT Dextrose/Lactated Ringer's 1,000 ml @ 60 mls/hr [id number] IV 04/09/17 20:00 05/09/17 19:59 Objective Vital Signs Date Time Temp Pulse Resp B/P (MAP) Pulse Ox O2 Delivery O2 Flow Rate FiO2 04/09/17 07:59 36.4 64 16 122/76 (91) 97 04/09/17 04:02 36.8 67 20 111/64 (80) 95 Room Air 04/09/17 00:20 97 Room Air 04/08/17 23:56 36.4 71 18 146/73 (97) 97 Room Air 04/08/17 18:34 36.7 76 16 127/75 (92) 95 04/08/17 16:10 Room Air 04/08/17 14:52 36.5 76 16 158/74 (102) 98 04/08/17 11:21 36.6 65 17 121/72 (88) 95 Physical Exam General Appearance: no apparent distress Eyes: PERRL ENT: hearing grossly normal Neck: supple Respiratory/Chest: lungs clear, normal breath sounds Cardiovascular: regular rate, rhythm Abdomen: normal bowel sounds, soft, + tenderness (very mild upper abd tenderness w/o guarding or rebound) Neurologic/Psych: alert, normal mood/affect, oriented x 3 Skin: normal color Laboratory Results Last 24 Hours Test 04/08/17 19:03 04/09/17 05:27 Prothrombin Time 10.3 SECONDS Prothromb Time International Ratio 1.0 Sodium Level 138 mmol/L Potassium Level 3.8 mmol/L Chloride Level 106 mmol/L Carbon Dioxide Level 26 mmol/L Anion Gap 6.0 mmol/L Blood Urea Nitrogen 8 mg/dl Creatinine 0.79 mg/dl Est Creatinine Clear Calc Drug Dose 64.4 ml/min Estimated GFR () 87.9 Estimated GFR (Non- 75.8 BUN/Creatinine Ratio 10.6 Random Glucose 89 mg/dl Calcium Level 8.5 mg/dl Lipase 989 U/L Assessment and Plan 71 year old female with mild, acute pancreatitis, much improved. The etiology is most likely from the chemotherapy, however, having passed a gallstone is also a possibility though would have expected biliary ductal dilation or elevated LFT if from gallstones. She has tolerating advancing diet of the weekend, is no longer having abd pain, nausea, vomiting. Also notes normal output from stoma. Likely gallstone induced pancreatitis - IVF for maintenance fluid - Low fat diet as tolerated - Anti-emetics PRN - Analgesia PRN - No need to trend lipase - Will discuss need for outpatient GI evaluation - GI to sign off. Please call with any questions, concerns or acute changes. Attg add: I interviewed and examined pt, reviewed chart and labs. Pt admit with pancreatitis, now without any symptoms. She denies abd pain. OK for d.c, plan for outpt GI followup.
[2017-04-09 13:39] VITALS: BP 122/76; PULSE 64; TEMP 36.4; O2SAT 97
--- NOTE | 2017-04-09 14:51 | Progress Note ---
Medicine Progress Note Date & Time of Visit: Apr 09, 2017 at 14:46. Subjective patient seen resting in bed, comfortable in good spirits states she feels fine overall tolerating diet well no abdominal pain, nausea has good ileostomy output denies other symptoms states she is ready and would like to be discharged today no other symptoms Objective Last 8 Hrs Date Time Temp Pulse Resp B/P (MAP) Pulse Ox O2 Delivery O2 Flow Rate FiO2 04/09/17 13:39 36.4 64 16 97 Room Air 04/09/17 08:00 Room Air 04/09/17 07:59 36.4 64 16 122/76 (91) 97 Physical Exam: General- oriented x 3, not in distress, speaks in sentences with no effort Lungs- clear breath sounds BL Heart- regular rhythm; no murmur, normal rate Abdomen- normal bowel sounds, non distended soft, No epigastric tenderness, ileostomy site: benign Extremities- no pretibial edema, no calf tenderness Neuro- alert, oriented x 3; no gross focal deficits Skin- warm & dry Laboratory Results: Last 24 Hours Test 04/08/17 19:03 04/09/17 05:27 Prothrombin Time 10.3 SECONDS Prothromb Time International Ratio 1.0 Sodium Level 138 mmol/L Potassium Level 3.8 mmol/L Chloride Level 106 mmol/L Carbon Dioxide Level 26 mmol/L Anion Gap 6.0 mmol/L Blood Urea Nitrogen 8 mg/dl Creatinine 0.79 mg/dl Est Creatinine Clear Calc Drug Dose 64.4 ml/min Estimated GFR () 87.9 Estimated GFR (Non- 75.8 BUN/Creatinine Ratio 10.6 Random Glucose 89 mg/dl Calcium Level 8.5 mg/dl Lipase 989 U/L Assessment & Plan 71 year old female with history of Colon Cancer, s/p Resection, s/p Ileostomy last July 2016, DM, HTN, CKD 3, COPD presenting abdominal pain and low ileostomy output. ABDOMINAL PAIN likely from Pancreatitis - Gallstone vs. Chemotherapy related? CT abdomen: pancreas and liver unremarkable, but (+) cholelithiasis IMPRESSION: 1. Postsurgical changes with bilateral ostomies and bilateral parastomal hernias 2. No evidence of small bowel obstruction. No evidence of free air 3. Cholelithiasis 4. Indeterminate 26 mm left adrenal gland nodule 5. Mild gastric distention -- slowly advanced diet to regular given IV fluids Lipase trended down 1300 to 600s LFTs ok -- GI consulted- YEN Garay/Herlinda Black ff up with GI in 1-2 weeks, may need to have cholecystectomy COLON CA, s/p RESECTION, ILEOSTOMY JULY 2016 ON CHEMOTHERAPY - follows with Surgery and Oncology - currently on Chemotherapy- 5 FU DM TYPE 2 ISS HYPERTENSION - BP stable DISPOSITION d/c home ff up with PCP in 3-5 days ff up with GI in 1-2 weeks ff up with Oncology and General Surgery as scheduled Current Inpatient Medications: Current Inpatient Medications Medications (Trade) Dose Ordered Sig/[place] Route Start Time Stop Time Status Last Admin Dose Admin Miscellaneous (Iv Fluids Completed) 1 ea PRN PRN N/A 04/05/17 01:45 04/05/18 01:44 Cetirizine HCl (zyrTEC TAB) 5 mg QPM PO 04/05/17 21:00 05/05/17 20:59 04/08/17 20:07 5 MG Levothyroxine Sodium (Synthroid Tab) 88 mcg DAILYBB PO 04/05/17 06:30 05/05/17 06:29 04/09/17 06:14 88 MCG Ondansetron HCl (Zofran Tab) 4 mg Q6 PRN PO 04/05/17 04:15 05/05/17 04:14 Sertraline HCl (Zoloft Tab) 50 mg HS PO 04/05/17 21:00 05/05/17 20:59 04/08/17 20:07 50 MG Albuterol (Ventolin Hfa Inhaler) 2 puffs QID INH 04/05/17 08:00 05/05/17 07:59 04/09/17 11:39 2 PUFFS Ondansetron HCl (Zofran Inj) 4 mg Q4H PRN IV 04/05/17 04:45 05/05/17 04:44 Heparin Sodium (Porcine) (Heparin 100 Unit/ml 5ml Flush) 5 ml PRN PRN IV 04/06/17 11:15 05/06/17 11:14 04/09/17 14:44 5 ML Heparin Sodium (Porcine) (Heparin Sq 5000 Unit/0.5ml) 5,000 unit Q8 SQ 04/08/17 22:00 05/08/17 21:59 04/09/17 06:16 5,000 UNIT Dextrose/Lactated Ringer's 1,000 ml @ 60 mls/hr [id number] IV 04/09/17 20:00 05/09/17 19:59
--- NOTE | 2017-04-09 15:00 | Discharge Instructions ---
Discharge Instructions Date of Service Apr 09, 2017. Admission Reason for Admission: Epigastric Abdominal Pain, Lactic Acid Increased Discharge Discharge Diagnosis / Problem: Acute Pancreatitis Discharge Goals Goal(s): Diagnostic testing, Therapeutic intervention Activity Recommendations Activity Limitations: resume your previous activity . Instructions / Follow-Up Instructions / Follow-Up ENSURE ADEQUATE DAILY FLUID INTAKE. CONTINUE LOW FAT, SOFT DIET AT LEAST FOR A WEEK. CALL PRIMARY CARE PHYSICIAN OR RETURN TO ER IMMEDIATELY IF WITH RECURRENCE OF SYMPTOMS. FOLLOW UP WITH DR. VENUS COOPER ON Sunday04/12/17 AT 2:05PM. FOLLOW UP WITH GASTROENTEROLOGY CLINIC IN 1-2 WEEKS. FOLLOW UP WITH ONCOLOGIST AND GENERAL SURGEON SCHEDULED. Current Hospital Diet Patient's current hospital diet: Low Fat Diet Discharge Diet Recommended Diet: Low Fiber Diet, Low Fat Diet Procedures Procedures Performed: CT SCAN OF THE ABDOMEN Pending Studies Studies pending at discharge: no Medical Emergencies . Who to Call and When: Medical Emergencies: If at any time you feel your situation is an emergency, please call 911 immediately. . Non-Emergent Contact Non-Emergency issues call your: Primary Care Provider, Glass Robot Operator, Oncologist, Surgeon Call Non-Emergent contact if: you have a fever, your pain is not controlled, your pain is worsening, you have any medication questions . . "Provider Documentation" section prepared by Marco A Valente. . VTE Core Measure Inpt VTE Proph given/why not?: Unfractionated heparin SQ
--- NOTE | 2017-04-09 15:05 | Discharge Summary ---
Discharge Summary Date of Service Apr 09, 2017. Discharge Summary Admission Date: Apr 07, 2017 at 20:56 Discharge Date: Apr 09, 2017 Discharge Disposition: Home Principal Diagnosis: ABDOMINAL PAIN likely from Pancreatitis - Gallstone vs. Chemotherapy related Secondary Diagnoses/Problems: Please refer to hospital course below. Procedures: CT ABD/PELVIS IV CONTRAST ONLY CLINICAL HISTORY: Generalized abdominal pain and diminished ostomy output COMPARISON STUDY: 08/09/2016 TECHNIQUE: Following the IV administration of 110 mL of Optiray-320, CT scan of the abdomen and pelvis was performed from the lung bases to the proximal femurs. Images are reviewed in the axial, sagittal, and coronal planes. IV contrast was administered without complication. A dose lowering technique was utilized adhering to the principles of ALARA. CT DOSE: 592.46 mGy.cm FINDINGS: Lower chest: The heart is normal in size and configuration, without pericardial effusion. The lung bases and pleural spaces are clear. Liver: The contrast-enhanced liver is normal in size, contour, and attenuation. There is no intrahepatic biliary ductal dilatation. The hepatic veins and portal veins are patent. Gallbladder: Cholelithiasis. Spleen: Normal in size and attenuation. Pancreas: Unremarkable. Adrenal glands: There is a 26 mm left adrenal gland nodule. This measured 24 mm the preceding study. Kidneys: There is symmetric renal cortical enhancement. The kidneys are normal in size without hydronephrosis. Bowel: There is a left lower quadrant ostomy, and right lower quadrant ostomy. There are bilateral parastomal hernias.. There are no transition zones indicate bowel obstruction. There is rectus diastases. There is no evidence of acute diverticulitis. The stomach is mildly distended. Peritoneum: There is no intraperitoneal free air or abdominal ascites. Vasculature: The abdominal aorta is normal in course and caliber. Adenopathy: None. Pelvic viscera: The bladder, and pelvic viscera are unremarkable. Skeletal structures: No destructive osseous lesions are seen. IMPRESSION: 1. Postsurgical changes with bilateral ostomies and bilateral parastomal hernias 2. No evidence of small bowel obstruction. No evidence of free air 3. Cholelithiasis 4. Indeterminate 26 mm left adrenal gland nodule 5. Mild gastric distention Consultations: Gastroenterology, General Surgery Pending Studies/Follow-Up: Please refer to hospital course below. Medication Reconciliation Continued Medications: Albuterol Sulfate (Proair Respiclick) 108 Mcg/Act Aer 2 PUFF INH QID Aluminum Hydroxide-Mag Trisil (Gaviscon) 1 Chw Chw 2 TABS PO QID PRN for GI Upset Ascorbic Acid (Vitamin C) 500 Mg Tab 500 MG PO BID Calcium Citrate-Vitamin D (Citracal + D3 Maximum) 1 Tab Tab 1 TAB PO QAM Cetirizine Hcl (Zyrtec) 5 Mg Tab 5 MG PO QPM, TAB Cyanocobalamin (Vitamin B-12) 1,000 Mcg Tab 1000 MCG PO QAM, TAB Ferrous Sulfate (Kp Ferrous Sulfate) 325 Mg Tab 325 MG PO QAM for 30 Days, #30 TAB 3 Refills Fluticasone Propionate (Nasal) (Flonase Allergy Relief) 50 Mcg/Act Spr 2 SPRAYS MARI QAM Levothyroxine Sodium (Levothyroxine Sodium) 88 Mcg Tab 88 MCG PO QAM, TAB Magnesium Chloride (Slow-Mag Tab) 64 Mg Tabcr 64 MG PO BID for 30 Days, #60 TABS 2 Refills Multiple Vitamins W/ Minerals (Multivitamin Adults 50+) 1 Tab Tab 1 TAB PO QAM Ondansetron Hcl (Zofran) 4 Mg Tab 4 MG PO Q6 PRN for Nausea, TAB Pravastatin (Pravachol ) Unknown Strength Tab 1 TAB PO QPM, TAB Promethazine (Phenergan ) Unknown Strength Tab Unknown Dose PO QPM PRN for Nausea, TAB TAKE 1 TABLET AT BEDTIME FOR 4 NIGHTS IN A ROW AFTER RECEIVING CHEMO Senna (Senokot) 8.6 Mg Tab 8.6 MG PO BID, TAB Sertraline (Zoloft) 50 Mg Tab 50 MG PO HS, TAB Umeclidinium-Vilanterol (Anoro Ellipta 62.5-25 Mcg/INH) 1 Aer Aer 1 PUFF INH QAM Admission Information HPI (per Admitting provider): 71 year old female who with 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 Patient follows with Dr Venus Whitten and patient went to Hematology/Oncology at [facility] on to receive outpatient infusion of chemotherapy leucovorin with fluorouracil ( 5-FU) and arrived to the ER with 5-FU still running in her infusion port. In the ED patient was found to have elevated lipase and elevated lactic acid. Patient seen by hospitalist physician without acute distress. Patient placed under observation for IV hydration and monitoring of abdominal symptoms Physical Exam (per Admitting): General Appearance: WD/WN, no apparent distress Head: normocephalic, atraumatic Eyes: normal inspection, EOMI, sclerae normal ENT: normal ENT inspection, hearing grossly normal, pharynx normal Neck: supple, no JVD, trachea midline Respiratory/Chest: chest non-tender, lungs clear, normal breath sounds, no respiratory distress, no accessory muscle use Cardiovascular: regular rate, rhythm, no edema, no JVD Abdomen/GI: normal bowel sounds, soft, no organomegaly, + tenderness ( tenderness on palpation above umbilicus), + pertinent finding (dressing over right abdomen, ostomy bag over right abdomen) Back: normal inspection, no muscle spasm, normal range of motion Extremities/Musculoskelatal: normal inspection, no calf tenderness, no pedal edema, normal range of motion, non-tender Neurologic/Psych: alert, normal mood/affect, oriented x 3 Skin: normal color, warm/dry, no rash Hospital Course 71 year old female with history of Colon Cancer, s/p Resection, s/p Ileostomy last July 2016, DM, HTN, CKD 3, COPD presenting abdominal pain and low ileostomy output. ABDOMINAL PAIN likely from Pancreatitis - Gallstone vs. Chemotherapy related? CT abdomen: pancreas and liver unremarkable, but (+) cholelithiasis IMPRESSION: 1. Postsurgical changes with bilateral ostomies and bilateral parastomal hernias 2. No evidence of small bowel obstruction. No evidence of free air 3. Cholelithiasis 4. Indeterminate 26 mm left adrenal gland nodule 5. Mild gastric distention -- given IV fluids slowly advanced diet to regular Lipase trended down 1300 to 600s LFTs ok -- GI consulted- YEN Garay/Herlinda Black ff up with GI in 1-2 weeks, may need to have evaluation for cholecystectomy COLON CA, s/p RESECTION, ILEOSTOMY JULY 2016 ON CHEMOTHERAPY - follows with Surgery and Oncology - currently on Chemotherapy- 5 FU DM TYPE 2 ISS HYPERTENSION - BP stable LEFT ADRENAL GLAND NODULE 2.6cm per CT abdomen ff up as outpatient DISPOSITION d/c home ff up with PCP in 3-5 days ff up with GI in 1-2 weeks ff up with Oncology and General Surgery as scheduled Total time spent on discharge = 30 minutes This includes examination of the patient, discharge planning, medication reconciliation, and communication with other providers. Discharge Instructions Discharge Instructions Date of Service Apr 09, 2017. Admission Reason for Admission: Epigastric Abdominal Pain, Lactic Acid Increased Discharge Discharge Diagnosis / Problem: Acute Pancreatitis Discharge Goals Goal(s): Diagnostic testing, Therapeutic intervention Activity Recommendations Activity Limitations: resume your previous activity . Instructions / Follow-Up Instructions / Follow-Up ENSURE ADEQUATE DAILY FLUID INTAKE. CONTINUE LOW FAT, SOFT DIET AT LEAST FOR A WEEK. CALL PRIMARY CARE PHYSICIAN OR RETURN TO ER IMMEDIATELY IF WITH RECURRENCE OF SYMPTOMS. FOLLOW UP WITH DR. VENUS WHITTEN ON Sunday04/12/17 AT 2:05PM. FOLLOW UP WITH GASTROENTEROLOGY CLINIC IN 1-2 WEEKS. FOLLOW UP WITH ONCOLOGIST AND GENERAL SURGEON SCHEDULED. Current Hospital Diet Patient's current hospital diet: Low Fat Diet Discharge Diet Recommended Diet: Low Fiber Diet, Low Fat Diet Procedures Procedures Performed: CT SCAN OF THE ABDOMEN Pending Studies Studies pending at discharge: no Medical Emergencies . Who to Call and When: Medical Emergencies: If at any time you feel your situation is an emergency, please call 911 immediately. . Non-Emergent Contact Non-Emergency issues call your: Primary Care Provider, Astrochemist, Oncologist, Surgeon Call Non-Emergent contact if: you have a fever, your pain is not controlled, your pain is worsening, you have any medication questions . . "Provider Documentation" section prepared by Marco A Valente. . VTE Core Measure Inpt VTE Proph given/why not?: Unfractionated heparin SQ
[2017-04-09] MEDS ORDERED: D5W AND LACTATED RINGERS 1,000 ML IV SCH (20:00)
== END 2017-04-09 16:05 | disposition home or self-care (01) | DRG 439 ==
LOC: C.EDB 20:22 → C.4E 04-05 01:14 → ENRESERV 04-05 01:32 → OBSVTOIN 04-07 20:56
PROVIDERS: ADMIT Hospitalist; ATTEND Internal Medicine
DX: K85.90 Acute pancreatitis without necrosis or infection, unspecified (principal); C18.0 Malignant neoplasm of cecum; N18.3 Chronic kidney disease, stage 3 (moderate); E11.22 Type 2 diabetes mellitus with diabetic chronic kidney disease; E03.9 Hypothyroidism, unspecified; J44.9 Chronic obstructive pulmonary disease, unspecified; I12.9 Hypertensive chronic kidney disease with stage 1 through stage 4 chronic kidney disease, or unspecified chronic kidney disease; F32.9 Major depressive disorder, single episode, unspecified; Z87.891 Personal history of nicotine dependence; Z79.899 Other long term (current) drug therapy; Z93.2 Ileostomy status

== ENCOUNTER 2017-06-26 12:31 | Inpatient (IN) | payer BC, OTHER ==
[~2017-06-26] VITALS: Ht 157.5 cm; Wt 73.0 kg
[~2017-06-26 12:31] MED LIST changes: +PRAV20TA PO; +PROM12.57 PO
[2017-06-26] MEDS ORDERED: ONDANSETRON INJ 2 MG/ML 2 ML VIAL IV STA (12:44)
[2017-06-26] MEDS ORDERED: SODIUM CHLORIDE 0.9% 1000ML 1,000 ML IV STA (12:44)
[2017-06-26] MEDS ORDERED: MoRPHine SULFATE 4 MG/ML 1 ML CARP\\VIAL IV PRN ×2 (12:45→21:00)
[2017-06-26] MEDS ORDERED: PRAV20TA PO (12:59)
[2017-06-26] MEDS ORDERED: OPTIRAY 320 IV PRN (13:00)
--- NOTE | 2017-06-26 13:14 | DIAGNOSTIC IMAGING REPORT ---
CHEST ONE VIEW PORTABLE CLINICAL HISTORY: 72 years-old Female presenting with abd pain. TECHNIQUE: Portable upright AP view of the chest was obtained. COMPARISON: 12/25/2016. FINDINGS: Right subclavian Mediport terminates in the right brachiocephalic vein. Atherosclerosis of the aortic arch. Cardiac silhouette normal in size. Minimal left basilar opacity. No other focal opacity. No large effusion or pneumothorax. Osseous structures normal. Upper abdomen normal. IMPRESSION: 1. Minimal left basilar atelectasis suspected. No other evidence of acute cardiopulmonary disease. Electronically signed by: Gigi Eaton M.D. 06/26/2017 1:13 PM Dictated Date/Time: 06/26/2017 1:12 PM
[2017-06-26 14:46] LABS: BASO % 0.5 %; BASO ABS # 0.07 K/uL (0-0.2); EOS ABS # 0.14 K/uL (0-0.5); HEMATOCRIT 27.8 % (37-47); HEMOGLOBIN 9.3 g/dL (12.0-16.0); IG# 0.54 K/uL (0.00-0.02); LYMPH % 19.8 %; LYMPH ABS # 2.76 K/uL (1.2-3.4); MEAN CORPUSCULAR HEMOGLOBIN 34.4 pg (25-34); MEAN CORPUSCULAR HGB CONC 33.5 g/dl (32-36); MEAN PLATELET VOLUME 9.4 fL (7.4-10.4); MONO % 13.2 %; MONO ABS # 1.84 K/uL (0.11-0.59); NEUT % 61.6 %; NEUT ABS # 8.57 K/uL (1.4-6.5); NUCLEATED RED BLOOD CELL ABS 0.03 K/uL (0-0); PLATELET COUNT 328 K/uL (130-400); RED CELL DISTRIBUTION WIDTH SD 60.6 fL (36.4-46.3); WHITE BLOOD COUNT 13.92 K/uL (4.8-10.8)
[2017-06-26 15:04] LABS: ALBUMIN 2.4 gm/dl (3.4-5.0); ALT/SGPT 12 U/L (12-78); AST/SGOT 15 U/L (15-37); BLOOD UREA NITROGEN 17 mg/dl (7-18); CALCIUM 8.3 mg/dl (8.5-10.1); CARBON DIOXIDE 29 mmol/L (21-32); CREATININE 0.88 mg/dl (0.60-1.20); GLUCOSE 90 mg/dl (70-99); LIPASE 74 U/L (73-393); SODIUM 131 mmol/L (136-145)
[2017-06-26 15:09] LABS: ALKALINE PHOSPHATASE 68 U/L (45-117); TOTAL PROTEIN 6.2 gm/dl (6.4-8.2)
[2017-06-26] MEDS ORDERED: POTASSIUM CHLORIDE 10 MEQ TABCR PO STA (15:09)
[2017-06-26] MEDS ORDERED: CEFTRIAXONE SOD INJ 1 GM ADDVIAL IV STA (15:28)
--- NOTE | 2017-06-26 16:10 | DIAGNOSTIC IMAGING REPORT ---
CT OF THE ABDOMEN AND PELVIS WITH CONTRAST CLINICAL HISTORY: Abdominal pain. COMPARISON STUDY: CT of the abdomen posterior 2017. TECHNIQUE: Following IV administration of 93 mL of Optiray-320, axial images of the abdomen and pelvis were obtained from the lung bases to the proximal femurs. Images were reviewed in the axial, sagittal, and coronal planes. IV contrast was administered without complication. A dose lowering technique was utilized adhering to the principles of ALARA. CT DOSE: 477.09 mGy.cm FINDINGS: Visualized portions of the lower chest demonstrate moderate emphysema. There has been interval development of left lower lung consolidation. There is multifocal nodular opacities within the right middle and lower lobes. No pneumatosis, free air or portal venous gas is present. There are gallstones within the gallbladder. There is no evidence for acute cholecystitis. The liver, spleen, right adrenal gland and pancreas are unremarkable. A left adrenal nodule is unchanged from earlier studies and benign given stability. Mild right abdominal infiltration adjacent to the proximal small bowel is unchanged from prior exam of April 04, 2017. There is no abscess. A right lower quadrant ileostomy is noted. There is mild dilatation of several mid small bowel loops without discrete transition point. There is colonic diverticulosis without evidence for acute diverticulitis. No abdominal or pelvic lymphadenopathy is present. No suspicious osseous lesions are present. Lower abdominal ventral hernia contains multiple small bowel loops without resultant bowel obstruction. IMPRESSION: 1. Interval development of left lower lobe consolidation and multifocal nodular opacities within the right middle and lower lobes. The findings favor pneumonia. A follow-up chest CT in one to 2 months to ensure resolution is recommended. 2. Status post right hemicolectomy. Mild dilatation of several mid small bowel loops without discrete transition point. A partial small bowel obstruction with be difficult to exclude but considered unlikely. Lower abdominal ventral hernia which contains loops of small bowel. 3. Mild right abdominal infiltration which is unchanged since exam of April 04, 2017 and likely chronic. 4. Stable left adrenal nodule which is benign given stability. 5. Cholelithiasis. No evidence for acute cholecystitis. Electronically signed by: Nicko Bar M.D. 06/26/2017 4:08 PM Dictated Date/Time: 06/26/2017 3:48 PM
[2017-06-26] MEDS ORDERED: LEVAQUIN 750MG / 150ML D5W IV STA (16:12)
--- NOTE | 2017-06-26 16:23 | EMERGENCY ROOM VISIT NOTE ---
History Report prepared by Katharine: Og Greene Under the Supervision of: Dr. Chris Akbar D.O. First contact with patient: 12:38 Chief Complaint: ABDOMINAL PAIN Stated Complaint: STOMACH PAIN History of Present Illness The patient is a 72 year old female who presents to the Emergency Room with complaints of intermittent diffuse abdominal pain beginning a few weeks ago. She has a history of colon cancer. Her most recent chemotherapy treatment was three weeks ago. The patient notes that she vomited the past two nights. She also complains of fatigue and lightheadedness. She feels that she may be dehydrated. The patient adds that she has been sleeping a lot recently. She denies chest pain or cough. She has taken Tylenol for her symptoms which has improved her pain. The patient had blood work today with her oncologist and was referred to the ED for further evaluation. She has a history of pancreatitis and gallstones. Source of History: patient Onset: A few weeks ago Position: abdomen (diffuse) Timing: intermittent Modifying Factors (Relieving): tylenol Associated Symptoms: + vomiting, + fatigue, No cough, No chest pain Note: Positive: lightheadedness. Review of Systems See HPI for pertinent positives & negatives. A total of 10 systems reviewed and were otherwise negative. Past Medical & Surgical Medical Problems: (1) Acute blood loss anemia (2) CKD (chronic kidney disease), stage III (3) Colon cancer (4) COPD, moderate (5) Depression (6) DM type 2 (diabetes mellitus, type 2) (7) Epigastric abdominal pain (8) Fungemia (9) Hypotension (10) Hypothyroidism (11) Lactic acid increased (12) Perforation of colon (13) Peritonitis (14) Polymicrobial sepsis (15) SBO (small bowel obstruction) Surgical Problems: (1) S/P oophorectomy Family History Colon cancer SISTER SISTER Heart disease MOTHER Hypertension FATHER MOTHER Social History Smoking Status: Former Smoker Alcohol Use: none Drug Use: none Marital Status: single Occupation Status: retired Current/Historical Medications Scheduled Albuterol Sulfate (Proair Respiclick), 2 PUFF INH QID Ascorbic Acid (Vitamin C), 500 MG PO BID Calcium Citrate-Vitamin D (Citracal + D3 Maximum), 1 TAB PO QAM Cetirizine Hcl (Zyrtec), 5 MG PO QPM Cyanocobalamin (Vitamin B-12), 1,000 MCG PO QAM Ferrous Sulfate (Kp Ferrous Sulfate), 325 MG PO QAM Fluticasone Propionate (Nasal) (Flonase Allergy Relief), 2 SPRAYS MARI QAM Levothyroxine Sodium (Levothyroxine Sodium), 88 MCG PO QAM Magnesium Chloride (Slow-Mag Tab), 64 MG PO BID Multiple Vitamins W/ Minerals (Multivitamin Adults 50+), 1 TAB PO QAM Pravastatin (Pravachol ), 20 MG PO DAILY Senna (Senokot), 8.6 MG PO BID Sertraline (Zoloft), 50 MG PO HS Umeclidinium-Vilanterol (Anoro Ellipta 62.5-25 Mcg/INH), 1 PUFF INH QAM Scheduled PRN Aluminum Hydroxide-Mag Trisil (Gaviscon), 2 TABS PO QID PRN for GI Upset Ondansetron Hcl (Zofran), 4 MG PO Q6 PRN for Nausea Promethazine (Phenergan ), Unknown Dose PO QPM PRN for Nausea Allergies Coded Allergies: No Known Allergies (Unverified , 04/04/17) Physical Exam Vital Signs Date Time Temp Pulse Resp B/P (MAP) Pulse Ox O2 Delivery O2 Flow Rate FiO2 06/26/17 17:16 75 06/26/17 16:25 95 Nasal Cannula 2.0 06/26/17 16:23 78 113/60 85 Room Air 06/26/17 15:30 72 132/64 92 Room Air 06/26/17 13:26 80 23 94 06/26/17 13:21 91 30 93 Room Air 06/26/17 13:16 83 20 94 06/26/17 13:15 95 06/26/17 13:11 86 16 93 Room Air 06/26/17 13:09 117/66 06/26/17 12:33 36.5 98 20 108/70 96 Room Air Physical Exam GENERAL: Patient is awake, alert, and in no acute distress. Patient is resting comfortably and showing no signs of anxiety EYES: The conjunctivae are clear. The pupils are round and reactive. EARS, NOSE, MOUTH AND THROAT: The nose is without any evidence of any deformity. Mucous membranes are moist tongue is midline NECK: The neck is nontender and supple. RESPIRATORY: Normal respiratory effort is noted there is no evidence of wheezing rhonchi or rales CARDIOVASCULAR: Regular rate and rhythm noted there no murmurs rubs or gallops normal S1 normal S2 GASTROINTESTINAL: Mildly distended but soft. No guarding or rigidity. MUSCULOSKELETAL/EXTREMITIES: There is no evidence of gross deformity full range of motion is noted in the hips and shoulders SKIN: There is no obvious evidence of any rash. There are no petechiae, pallor or cyanosis noted. NEUROLOGIC: Patient is awake alert and oriented x3 Medical Decision & Procedures ER Provider Diagnostic Interpretation: Radiology results as stated below per my review and radiologist interpretation: CHEST ONE VIEW PORTABLE FINDINGS: Right subclavian Mediport terminates in the right brachiocephalic vein. Atherosclerosis of the aortic arch. Cardiac silhouette normal in size. Minimal left basilar opacity. No other focal opacity. No large effusion or pneumothorax. Osseous structures normal. Upper abdomen normal. IMPRESSION: 1. Minimal left basilar atelectasis suspected. No other evidence of acute cardiopulmonary disease. Electronically signed by: Gigi Eaton M.D. 06/26/2017 1:[address] OF THE ABDOMEN AND PELVIS WITH CONTRAST FINDINGS: Visualized portions of the lower chest demonstrate moderate emphysema. There has been interval development of left lower lung consolidation. There is multifocal nodular opacities within the right middle and lower lobes. No pneumatosis, free air or portal venous gas is present. There are gallstones within the gallbladder. There is no evidence for acute cholecystitis. The liver, spleen, right adrenal gland and pancreas are unremarkable. A left adrenal nodule is unchanged from earlier studies and benign given stability. Mild right abdominal infiltration adjacent to the proximal small bowel is unchanged from prior exam of April 04, 2017. There is no abscess. A right lower quadrant ileostomy is noted. There is mild dilatation of several mid small bowel loops without discrete transition point. There is colonic diverticulosis without evidence for acute diverticulitis. No abdominal or pelvic lymphadenopathy is present. No suspicious osseous lesions are present. Lower abdominal ventral hernia contains multiple small bowel loops without resultant bowel obstruction. IMPRESSION: 1. Interval development of left lower lobe consolidation and multifocal nodular opacities within the right middle and lower lobes. The findings favor pneumonia. A follow-up chest CT in one to 2 months to ensure resolution is recommended. 2. Status post right hemicolectomy. Mild dilatation of several mid small bowel loops without discrete transition point. A partial small bowel obstruction with be difficult to exclude but considered unlikely. Lower abdominal ventral hernia which contains loops of small bowel. 3. Mild right abdominal infiltration which is unchanged since exam of April 04, 2017 and likely chronic. 4. Stable left adrenal nodule which is benign given stability. 5. Cholelithiasis. No evidence for acute cholecystitis. Electronically signed by: Nicko Bar M.D. 06/26/2017 4:08 PM Laboratory Results 06/26/17 14:32 Red Blood Count 2.70, Mean Corpuscular Volume 103.0, Mean Corpuscular Hemoglobin 34.4, Mean Corpuscular Hemoglobin Concent 33.5, Mean Platelet Volume 9.4, Neutrophils (%) (Auto) 61.6, Lymphocytes (%) (Auto) 19.8, Monocytes (%) ( Auto) 13.2, Eosinophils (%) (Auto) 1.0, Basophils (%) (Auto) 0.5, Neutrophils # (Auto) 8.57, Lymphocytes # (Auto) 2.76, Monocytes # (Auto) 1.84, Eosinophils # ( Auto) 0.14, Basophils # (Auto) 0.07 06/26/17 14:32 Test 06/26/17 13:50 06/26/17 14:32 Urine Color DK YELLOW Urine Appearance CLEAR (CLEAR) Urine pH 6.0 (4.5-7.5) Urine Specific [place] 1.021 (1.000-1.030) Urine Protein NEG (NEG) Urine Glucose (UA) NEG (NEG) Urine Ketones TRACE (NEG) Urine Occult Blood NEG (NEG) Urine Nitrite NEG (NEG) Urine Bilirubin NEG (NEG) Urine Urobilinogen NEG (NEG) Urine Leukocyte Esterase MODERATE (NEG) Urine WBC (Auto) >30 /hpf (0-5) Urine RBC (Auto) 0-4 /hpf (0-4) Urine Hyaline Casts (Auto) 10-30 /lpf (0-5) Urine Epithelial Cells (Auto) 10-20 /lpf (0-5) Urine Bacteria (Auto) NEG (NEG) White Blood Count 13.92 K/uL (4.8-10.8) Red Blood Count 2.70 M/uL (4.2-5.4) Hemoglobin 9.3 g/dL (12.0-16.0) Hematocrit 27.8 % (37-47) Mean Corpuscular Volume 103.0 fL (80-100) Mean Corpuscular Hemoglobin 34.4 pg (25-34) Mean Corpuscular Hemoglobin Concent 33.5 g/dl (32-36) Platelet Count 328 K/uL (130-400) Mean Platelet Volume 9.4 fL (7.4-10.4) Neutrophils (%) (Auto) 61.6 % Lymphocytes (%) (Auto) 19.8 % Monocytes (%) (Auto) 13.2 % Eosinophils (%) (Auto) 1.0 % Basophils (%) (Auto) 0.5 % Neutrophils # (Auto) 8.57 K/uL (1.4-6.5) Lymphocytes # (Auto) 2.76 K/uL (1.2-3.4) Monocytes # (Auto) 1.84 K/uL (0.11-0.59) Eosinophils # (Auto) 0.14 K/uL (0-0.5) Basophils # (Auto) 0.07 K/uL (0-0.2) RDW Standard Deviation 60.6 fL (36.4-46.3) RDW Coefficient of Variation 16.0 % (11.5-14.5) Immature Granulocyte % (Auto) 3.9 % Immature Granulocyte # (Auto) 0.54 K/uL (0.00-0.02) Nucleated RBC Absolute Count (auto) 0.03 K/uL (0-0) Nucleated Red Blood Cells % 0.2 % Anion Gap 9.0 mmol/L (3-11) Est Creatinine Clear Calc Drug Dose 56.0 ml/min Estimated GFR () 76.6 Estimated GFR (Non- 66.1 BUN/Creatinine Ratio 19.6 (10-20) Calcium Level 8.3 mg/dl (8.5-10.1) Total Bilirubin 0.3 mg/dl (0.2-1) Direct Bilirubin 0.1 mg/dl (0-0.2) Aspartate Amino Transf (AST/SGOT) 15 U/L (15-37) Alanine Aminotransferase (ALT/SGPT) 12 U/L (12-78) Alkaline Phosphatase 68 U/L (45-117) Troponin I < 0.015 ng/ml (0-0.045) Total Protein 6.2 gm/dl (6.4-8.2) Albumin 2.4 gm/dl (3.4-5.0) Lipase 74 U/L (73-393) Laboratory results per my review. Medications Administered Medications (Trade) Dose Ordered Sig/[place] Route Start Time Stop Time Status Last Admin Dose Admin Sodium Chloride 1,000 ml @ 999 mls/hr Q1H1M STAT IV 06/26/17 12:44 06/26/17 13:44 DC 06/26/17 13:46 999 MLS/HR Morphine Sulfate (MoRPHine SULFATE INJ) 4 mg Q15M PRN IV 06/26/17 12:45 07/10/17 12:44 06/26/17 13:47 4 MG Ondansetron HCl (Zofran Inj) 4 mg NOW STAT IV 06/26/17 12:44 06/26/17 12:48 DC 06/26/17 13:47 4 MG Potassium Chloride (Klor-Con M10) 10 meq NOW STAT PO 06/26/17 15:09 06/26/17 15:11 DC 06/26/17 15:34 10 MEQ Ceftriaxone Sodium (Rocephin Inj) 1 gm NOW STAT IV 06/26/17 15:28 06/26/17 15:29 DC 06/26/17 15:34 1 GM Levofloxacin (Levaquin / D5W) 750 mg NOW STAT IV 06/26/17 16:12 06/26/17 16:13 DC 06/26/17 16:21 750 MG ECG Per My Interpretation Indication: abdominal pain Rate (beats per minute): 83 Rhythm: sinus rhythm Findings: PAC, ST depression (diffuse) Comparison ECG Date: 10/21/2016 Change: no significant change ED Course 1241: The patient was evaluated in room C1B. A complete history and physical examination were performed. 1244: Ordered Zofran Inj 4 mg IV, NSS 1,000 ml @ 999 mls/hr IV, Morphine Sulfate 4 mg IV. 1509: Ordered Klor-Con M10 10 meq PO. 1528: Ordered Rocephin Inj 1 gm IV. 1612: Ordered Levaquin / D5W 750 mg IV. 1615: Upon reevaluation, the patient is resting comfortably. I discussed results and treatment plan with her. She verbalizes agreement and understanding. [facility] The patient will be evaluated for further management and care. Medical Decision Differential diagnosis: Etiologies such as appendicitis, diverticulitis, PUD, biliary pathology, UTI, pancreatitis, obstruction, mesenteric ischemia, aortic pathology, infections, inflammatory bowel disease, renal colic, as well as others were entertained. Nursing notes reviewed. Additional history was reviewed from the patient's oncology office. The patient is a 72-year-old female who presented to the emergency department for upper abdominal pain. She was sent from the oncology office for possible pancreatitis. Patient had nausea and vomiting yesterday. She was found of signs of urinary tract infection and was started on antibiotics. She was later found to have a pneumonia on CT scan which was not noted on chest x-ray and she was given another antibiotic to cover a pulmonary source as well. Blood cultures were not obtained because she already received antibiotics. The patient was treated with IV fluids. I discussed patient's laboratory and radiographic studies with her. I discussed her case with the on-call [facility] hospitalist. She was felt to have signs of partial small bowel obstruction on CT. I do not feel this is a bowel obstruction at this time given the patient's physical exam. Medication Reconcilliation Current Medication List: was personally reviewed by me Blood Pressure Screening Patient's blood pressure: Normal blood pressure Blood pressure disposition: Did not require urgent referral Consults Time Called: 1617 Consulting Physician: Silvia Dumont PA-C - [facility] Returned Call: 1623 I discussed the patient's case with Silvia Dumont PA-C. The patient will be evaluated for further management. Impression Primary Impression: Pneumonia Additional Impressions: Partial small bowel obstruction UTI (urinary tract infection) Hypokalemia Hypoxia Scribe Attestation The scribe's documentation has been prepared under my direction and personally reviewed by me in its entirety. I confirm that the note above accurately reflects all work, treatment, procedures, and medical decision making performed by me. Departure Information Dispostion Being Evaluated By Hospitalist Referrals Bno Whitten M.D. (PCP) Patient Instructions My [facility] Problem Qualifiers Primary Impression: Pneumonia Pneumonia type: due to unspecified organism Laterality: left Lung location : lower lobe of lung Qualified Codes: J18.1 - Lobar pneumonia, unspecified organism Additional Impressions: UTI (urinary tract infection) Urinary tract infection type: acute cystitis Hematuria presence: without hematuria Qualified Codes: N30.00 - Acute cystitis without hematuria
[2017-06-26] MEDS ORDERED: ALEN70TA4 PO (18:15)
[2017-06-26] MEDS ORDERED: VNTHFA/IN INH (18:15)
[2017-06-26] MEDS ORDERED: VTMD1000 PO (18:15)
[2017-06-26] MEDS ORDERED: CYAN100073 PO (18:15)
[2017-06-26] MEDS ORDERED: PROC1TAB5 PO (18:15)
[2017-06-26] MEDS ORDERED: ASPEC81 PO (18:15)
[2017-06-26] MEDS ORDERED: CEFEPIME CONSULT ACTIVE PRN (19:15)
[2017-06-26] MEDS ORDERED: VANCOMYCIN CONSULT ACTIVE PRN (19:15)
[2017-06-26 19:30] VITALS: BP 129/61; PULSE 75; TEMP 36.8; O2SAT 98
[2017-06-26] MEDS ORDERED: CEFEPIME IV 2,000 MG in SYRINGE 7.5 ML IV SCH (19:30)
[2017-06-26] MEDS ORDERED: CEFEPIME IV 2000 MG in DEXTROSE 5% 100ML IV SCH (19:30)
[2017-06-26 19:57] LABS: PTT PATIENT 22.9 SECONDS (21.0-31.0)
[2017-06-26 20:00] VITALS: BP 129/61; PULSE 75; TEMP 36.8; O2SAT 98; Ht 157.5 cm; Wt 73.0 kg
[2017-06-26] MEDS ORDERED: VANCOMYCIN IV 1,750 MG in SODIUM CHLORIDE 0.9% 500ML 500 ML IV SCH (20:00)
--- NOTE | 2017-06-26 20:41 | Pharmacy Progress Note ---
Pharmacy Antibiotic Consult Date of Service: Jun 26, 2017. Pharmacy Dosing Scope Pharmacy is consulted to initiate VANCOMYCIN / CEFEPIME IV dosing therapy, order appropriate labs and adjust drug dose/frequency. Subjective The patient is a 72 year old female admitted on Jun 26, 2017 at 18:02. Objective Height (Feet): 5 Height (Inches): 2.00 Weight (Kilograms): 73.000 Lab Results (24hrs): Test 06/26/17 13:50 06/26/17 14:32 Urine Color DK YELLOW Urine Appearance CLEAR (CLEAR) Urine pH 6.0 (4.5-7.5) Urine Specific [place] 1.021 (1.000-1.030) Urine Protein NEG (NEG) Urine Glucose (UA) NEG (NEG) Urine Ketones TRACE (NEG) Urine Occult Blood NEG (NEG) Urine Nitrite NEG (NEG) Urine Bilirubin NEG (NEG) Urine Urobilinogen NEG (NEG) Urine Leukocyte Esterase MODERATE (NEG) Urine WBC (Auto) >30 /hpf (0-5) Urine RBC (Auto) 0-4 /hpf (0-4) Urine Hyaline Casts (Auto) 10-30 /lpf (0-5) Urine Epithelial Cells (Auto) 10-20 /lpf (0-5) Urine Bacteria (Auto) NEG (NEG) White Blood Count 13.92 K/uL (4.8-10.8) Red Blood Count 2.70 M/uL (4.2-5.4) Hemoglobin 9.3 g/dL (12.0-16.0) Hematocrit 27.8 % (37-47) Mean Corpuscular Volume 103.0 fL (80-100) Mean Corpuscular Hemoglobin 34.4 pg (25-34) Mean Corpuscular Hemoglobin Concent 33.5 g/dl (32-36) Platelet Count 328 K/uL (130-400) Mean Platelet Volume 9.4 fL (7.4-10.4) Neutrophils (%) (Auto) 61.6 % Lymphocytes (%) (Auto) 19.8 % Monocytes (%) (Auto) 13.2 % Eosinophils (%) (Auto) 1.0 % Basophils (%) (Auto) 0.5 % Neutrophils # (Auto) 8.57 K/uL (1.4-6.5) Lymphocytes # (Auto) 2.76 K/uL (1.2-3.4) Monocytes # (Auto) 1.84 K/uL (0.11-0.59) Eosinophils # (Auto) 0.14 K/uL (0-0.5) Basophils # (Auto) 0.07 K/uL (0-0.2) RDW Standard Deviation 60.6 fL (36.4-46.3) RDW Coefficient of Variation 16.0 % (11.5-14.5) Immature Granulocyte % (Auto) 3.9 % Immature Granulocyte # (Auto) 0.54 K/uL (0.00-0.02) Nucleated RBC Absolute Count (auto) 0.03 K/uL (0-0) Nucleated Red Blood Cells % 0.2 % Prothrombin Time 10.1 SECONDS (9.0-12.0) Prothromb Time International Ratio 1.0 (0.9-1.1) Activated Partial Thromboplast Time 22.9 SECONDS (21.0-31.0) Partial Thromboplastin Ratio 0.9 Sodium Level 131 mmol/L (136-145) Potassium Level 3.0 mmol/L (3.5-5.1) Chloride Level 93 mmol/L (98-107) Carbon Dioxide Level 29 mmol/L (21-32) Anion Gap 9.0 mmol/L (3-11) Blood Urea Nitrogen 17 mg/dl (7-18) Creatinine 0.88 mg/dl (0.60-1.20) Est Creatinine Clear Calc Drug Dose 56.0 ml/min Estimated GFR () 76.6 Estimated GFR (Non- 66.1 BUN/Creatinine Ratio 19.6 (10-20) Random Glucose 90 mg/dl (70-99) Calcium Level 8.3 mg/dl (8.5-10.1) Total Bilirubin 0.3 mg/dl (0.2-1) Direct Bilirubin 0.1 mg/dl (0-0.2) Aspartate Amino Transf (AST/SGOT) 15 U/L (15-37) Alanine Aminotransferase (ALT/SGPT) 12 U/L (12-78) Alkaline Phosphatase 68 U/L (45-117) Troponin I < 0.015 ng/ml (0-0.045) Total Protein 6.2 gm/dl (6.4-8.2) Albumin 2.4 gm/dl (3.4-5.0) Lipase 74 U/L (73-393) Micro Results: * 06/26/17 - Blood x 2 -- pending Assessment & Plan 72yo female ordered VANCOMYCIN / CEFEPIME for HCAP. Renal function is stable and good. VANCOMYCIN: * Loading dose: VANCOMYCIN 1750mg (24mg/kg) IV X 1 dose then VANCOMYCIN 1000mg (~14mg/kg) IV every 18 hours. * Estimated Pk parameters: Ke ~0.051 t1/2 ~14 hours * Goal trough level estimate: between 15 - 20 mcg/mL. * Trough level has been ordered for: @ 0200. Pharmacy will continue to follow and will adjust dose/frequency as necessary. Thank you
[2017-06-26] MEDS ORDERED: POTASSIUM CHLORIDE 20 MEQ TABCR PO ONE (21:00)
[2017-06-26] MEDS: CETIRIZINE HCL 10 MG TAB PO SCH (21:16)
[2017-06-26] MEDS: MAGNESIUM CHLORIDE 64MG DELAYED REL TAB PO SCH (21:16)
[2017-06-26] MEDS: SERTRALINE HCL 50 MG TAB PO SCH (21:16)
[2017-06-26] MEDS: POTASSIUM CHLORIDE INJ 40 MEQ in SODIUM CHLORIDE 0.9% 1000ML 1,000 ML IV SCH (21:18)
[2017-06-26] MEDS: ENOXAPARIN 40 MG/0.4 ML SYR SQ SCH (21:26)
--- NOTE | 2017-06-26 21:32 | History and Physical ---
History & Physical Date & Time of Service: Jun 26, 2017 at 18:23 Chief Complaint: Stomach Pain Primary Care Physician: Ghazala Whitten M.D. 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 She reports only taking in liquids for the past two days and admits to not drinking much water. She reports some tenderness to palpation around her ostomy site, but no abdominal pain at rest. She reports some vomiting around 5pm in the evening and states she then feels better. Vomitus is normal-appearing and does not include blood. Ostomy output has been lower than normal in the last couple of days. She was recently hospitalized for acute gallstone pancreatitis and reports completely recovering from this. She does not have epigastric tenderness at this time. She wrapped up her last ( 12th) session of chemotherapy June 06 and has felt well overall. ROS does reveal some lightheadedness on occasion, and for the last week she does report one day of fevers and hot flashes along with some shortness of breath. She reports sleeping alot to the ER physician. In the ER, she does not appear septic , but was found to have a multifocal pneumonia on CT a/p. She also was found to have dilated bowel loops consistent with a poss partial SBO. She has hypoactive bowel sounds on exam but otherwise a very benign abdominal exam without distension. WBC was 14K and Na 131 with K 3.0 and normal renal function. She denies any UTI symptoms including no dysuria, hematuria, or urgency. Past Medical/Surgical History Medical Problems: (1) CKD (chronic kidney disease), stage III Status: Chronic (2) Colon cancer Status: Chronic (3) COPD, moderate Status: Chronic (4) Depression Status: Chronic (5) DM type 2 (diabetes mellitus, type 2) Status: Chronic (6) Fungemia Status: Resolved (7) H/O tobacco use, presenting hazards to health Status: Chronic (8) Hypothyroidism Status: Chronic (9) Peritonitis Status: Resolved (10) Polymicrobial sepsis Status: Resolved Surgical Problems: (1) History of left salpingo-oophorectomy Status: Chronic (2) S/P right hemicolectomy Status: Chronic Family History Colon cancer SISTER SISTER Heart disease MOTHER Hypertension FATHER MOTHER Social History Smoking Status: Former Smoker Smokeless Tobacco Use: No Alcohol Use: socially Drug Use: none Marital Status: single Housing status: lives alone Occupational Status: retired Immunizations History of Influenza Vaccine: Yes Influenza Vaccine Date: Dec 23, 2015 History of Tetanus Vaccine?: Yes Tetanus Immunization Date: Oct 16, 2008 History of Pneumococcal: Yes Pneumococcal Date: July 30, 2015 Allergies Coded Allergies: Penicillins (Verified Adverse Reaction, Unknown, feet swelling and gets itchy, 06/26/17) Home Medications Scheduled Albuterol Sulfate (Proair Respiclick), 2 PUFF INH QID Alendronate Sodium (Fosamax), 70 MG PO WK Ascorbic Acid (Vitamin C), 500 MG PO BID Aspirin (Aspirin EC Low Dose), 81 MG PO DAILY Calcium Citrate-Vitamin D (Citracal + D3 Maximum), 1 TAB PO QAM Cetirizine Hcl (Zyrtec), 5 MG PO QPM Cholecalciferol (Vitamin D3), 1,000 UNITS PO DAILY Cyanocobalamin (Vitamin B-12), 1,000 MCG PO QAM Cyanocobalamin (B12), 1,000 MG PO DAILY Ferrous Sulfate (Kp Ferrous Sulfate), 325 MG PO QAM Fluticasone Propionate (Nasal) (Flonase Allergy Relief), 2 SPRAYS MARI QAM Levothyroxine Sodium (Levothyroxine Sodium), 88 MCG PO QAM Magnesium Chloride (Slow-Mag Tab), 64 MG PO BID Multiple Vitamins W/ Minerals (Multivitamin Adults 50+), 1 TAB PO QAM Pravastatin (Pravachol ), 20 MG PO DAILY Prochlorperazine Maleate (Compazine), 1 TAB PO Q6 Senna (Senokot), 8.6 MG PO BID Sertraline (Zoloft), 50 MG PO HS Umeclidinium-Vilanterol (Anoro Ellipta 62.5-25 Mcg/INH), 1 PUFF INH QAM Scheduled PRN Aluminum Hydroxide-Mag Trisil (Gaviscon), 2 TABS PO QID PRN for GI Upset Ondansetron Hcl (Zofran), 4 MG PO Q6 PRN for Nausea Review of Systems At least ten systems were reviewed and negative except as indicated in HPI above Physical Exam Vital Signs Date Time Temp Pulse Resp B/P (MAP) Pulse Ox O2 Delivery O2 Flow Rate FiO2 06/26/17 18:00 72 114/61 98 06/26/17 17:16 75 06/26/17 16:25 95 Nasal Cannula 2.0 06/26/17 16:23 78 113/60 85 Room Air 06/26/17 15:30 72 132/64 92 Room Air 06/26/17 13:26 80 23 94 06/26/17 13:21 91 30 93 Room Air 06/26/17 13:16 83 20 94 06/26/17 13:15 95 06/26/17 13:11 86 16 93 Room Air 06/26/17 13:09 117/66 06/26/17 12:33 36.5 98 20 108/70 96 Room Air General Appearance: WD/WN, no apparent distress Head: normocephalic, atraumatic Eyes: normal inspection, PERRL, EOMI, sclerae normal ENT: hearing grossly normal Neck: supple, no adenopathy, no JVD, trachea midline Respiratory/Chest: lungs clear, normal breath sounds, no respiratory distress, no accessory muscle use Cardiovascular: regular rate, rhythm, no edema, no gallop, no JVD, no murmur, normal peripheral pulses Abdomen/GI: non tender, soft, + abnormal bowel sounds (hypoactive) Back: normal inspection Extremities/Musculoskelatal: normal inspection, no calf tenderness, no pedal edema, normal range of motion Neurologic/Psych: energy director II-XII nml as tested, no motor/sensory deficits, alert, normal mood/affect, oriented x 3 Skin: normal color, warm/dry Diagnostics Laboratory Results 06/26/17 14:32 Red Blood Count 2.70, Mean Corpuscular Volume 103.0, Mean Corpuscular Hemoglobin 34.4, Mean Corpuscular Hemoglobin Concent 33.5, Mean Platelet Volume 9.4, Neutrophils (%) (Auto) 61.6, Lymphocytes (%) (Auto) 19.8, Monocytes (%) ( Auto) 13.2, Eosinophils (%) (Auto) 1.0, Basophils (%) (Auto) 0.5, Neutrophils # (Auto) 8.57, Lymphocytes # (Auto) 2.76, Monocytes # (Auto) 1.84, Eosinophils # ( Auto) 0.14, Basophils # (Auto) 0.07 06/26/17 14:32 Test 06/26/17 13:50 06/26/17 14:32 Urine Color DK YELLOW Urine Appearance CLEAR (CLEAR) Urine pH 6.0 (4.5-7.5) Urine Specific [place] 1.021 (1.000-1.030) Urine Protein NEG (NEG) Urine Glucose (UA) NEG (NEG) Urine Ketones TRACE (NEG) Urine Occult Blood NEG (NEG) Urine Nitrite NEG (NEG) Urine Bilirubin NEG (NEG) Urine Urobilinogen NEG (NEG) Urine Leukocyte Esterase MODERATE (NEG) Urine WBC (Auto) >30 /hpf (0-5) Urine RBC (Auto) 0-4 /hpf (0-4) Urine Hyaline Casts (Auto) 10-30 /lpf (0-5) Urine Epithelial Cells (Auto) 10-20 /lpf (0-5) Urine Bacteria (Auto) NEG (NEG) White Blood Count 13.92 K/uL (4.8-10.8) Red Blood Count 2.70 M/uL (4.2-5.4) Hemoglobin 9.3 g/dL (12.0-16.0) Hematocrit 27.8 % (37-47) Mean Corpuscular Volume 103.0 fL (80-100) Mean Corpuscular Hemoglobin 34.4 pg (25-34) Mean Corpuscular Hemoglobin Concent 33.5 g/dl (32-36) Platelet Count 328 K/uL (130-400) Mean Platelet Volume 9.4 fL (7.4-10.4) Neutrophils (%) (Auto) 61.6 % Lymphocytes (%) (Auto) 19.8 % Monocytes (%) (Auto) 13.2 % Eosinophils (%) (Auto) 1.0 % Basophils (%) (Auto) 0.5 % Neutrophils # (Auto) 8.57 K/uL (1.4-6.5) Lymphocytes # (Auto) 2.76 K/uL (1.2-3.4) Monocytes # (Auto) 1.84 K/uL (0.11-0.59) Eosinophils # (Auto) 0.14 K/uL (0-0.5) Basophils # (Auto) 0.07 K/uL (0-0.2) RDW Standard Deviation 60.6 fL (36.4-46.3) RDW Coefficient of Variation 16.0 % (11.5-14.5) Immature Granulocyte % (Auto) 3.9 % Immature Granulocyte # (Auto) 0.54 K/uL (0.00-0.02) Nucleated RBC Absolute Count (auto) 0.03 K/uL (0-0) Nucleated Red Blood Cells % 0.2 % Prothrombin Time 10.1 SECONDS (9.0-12.0) Prothromb Time International Ratio 1.0 (0.9-1.1) Activated Partial Thromboplast Time 22.9 SECONDS (21.0-31.0) Partial Thromboplastin Ratio 0.9 Anion Gap 9.0 mmol/L (3-11) Est Creatinine Clear Calc Drug Dose 56.0 ml/min Estimated GFR () 76.6 Estimated GFR (Non- 66.1 BUN/Creatinine Ratio 19.6 (10-20) Calcium Level 8.3 mg/dl (8.5-10.1) Total Bilirubin 0.3 mg/dl (0.2-1) Direct Bilirubin 0.1 mg/dl (0-0.2) Aspartate Amino Transf (AST/SGOT) 15 U/L (15-37) Alanine Aminotransferase (ALT/SGPT) 12 U/L (12-78) Alkaline Phosphatase 68 U/L (45-117) Troponin I < 0.015 ng/ml (0-0.045) Total Protein 6.2 gm/dl (6.4-8.2) Albumin 2.4 gm/dl (3.4-5.0) Lipase 74 U/L (73-393) Date/Time Source Procedure Growth Status 06/26/17 20:08 Blood Blood Culture Pending Received 06/26/17 00:00 Nasal MRSA DNA Surveillance Screen Pending Received 06/26/17 13:50 Urine , Clean Catch Urine Culture Pending Received Results Past 24 Hours Test 06/26/17 13:50 06/26/17 14:32 Range/Units Urine Color DK YELLOW Urine Appearance CLEAR CLEAR Urine pH 6.0 4.5-7.5 Urine Specific [place] 1.021 1.000-1.030 Urine Protein NEG NEG Urine Glucose (UA) NEG NEG Urine Ketones TRACE NEG Urine Occult Blood NEG NEG Urine Nitrite NEG NEG Urine Bilirubin NEG NEG Urine Urobilinogen NEG NEG Urine Leukocyte Esterase MODERATE NEG Urine WBC (Auto) >30 0-5 /hpf Urine RBC (Auto) 0-4 0-4 /hpf Urine Hyaline Casts (Auto) 10-30 0-5 /lpf Urine Epithelial Cells (Auto) 10-20 0-5 /lpf Urine Bacteria (Auto) NEG NEG White Blood Count 13.92 4.8-10.8 K/uL Red Blood Count 2.70 4.2-5.4 M/uL Hemoglobin 9.3 12.0-16.0 g/dL Hematocrit 27.8 37-47 % Mean Corpuscular Volume 103.0 80-100 fL Mean Corpuscular Hemoglobin 34.4 25-34 pg Mean Corpuscular Hemoglobin Concent 33.5 32-36 g/dl Platelet Count 328 130-400 K/uL Mean Platelet Volume 9.4 7.4-10.4 fL Neutrophils (%) (Auto) 61.6 % Lymphocytes (%) (Auto) 19.8 % Monocytes (%) (Auto) 13.2 % Eosinophils (%) (Auto) 1.0 % Basophils (%) (Auto) 0.5 % Neutrophils # (Auto) 8.57 1.4-6.5 K/uL Lymphocytes # (Auto) 2.76 1.2-3.4 K/uL Monocytes # (Auto) 1.84 0.11-0.59 K/uL Eosinophils # (Auto) 0.14 0-0.5 K/uL Basophils # (Auto) 0.07 0-0.2 K/uL RDW Standard Deviation 60.6 36.4-46.3 fL RDW Coefficient of Variation 16.0 11.5-14.5 % Immature Granulocyte % (Auto) 3.9 % Immature Granulocyte # (Auto) 0.54 0.00-0.02 K/uL Nucleated RBC Absolute Count (auto) 0.03 0-0 K/uL Nucleated Red Blood Cells % 0.2 % Sodium Level 131 136-145 mmol/L Potassium Level 3.0 3.5-5.1 mmol/L Chloride Level 93 98-107 mmol/L Carbon Dioxide Level 29 21-32 mmol/L Anion Gap 9.0 3-11 mmol/L Blood Urea Nitrogen 17 7-18 mg/dl Creatinine 0.88 0.60-1.20 mg/dl Est Creatinine Clear Calc Drug Dose 56.0 ml/min Estimated GFR () 76.6 Estimated GFR (Non- 66.1 BUN/Creatinine Ratio 19.6 10-20 Random Glucose 90 70-99 mg/dl Calcium Level 8.3 8.5-10.1 mg/dl Total Bilirubin 0.3 0.2-1 mg/dl Direct Bilirubin 0.1 0-0.2 mg/dl Aspartate Amino Transf (AST/SGOT) 15 15-37 U/L Alanine Aminotransferase (ALT/SGPT) 12 12-78 U/L Alkaline Phosphatase 68 45-117 U/L Troponin I < 0.015 0-0.045 ng/ml Total Protein 6.2 6.4-8.2 gm/dl Albumin 2.4 3.4-5.0 gm/dl Lipase 74 73-393 U/L Microbiology Results 06/26/17 Blood Culture, Ordered Pending 06/26/17 Blood Culture, Ordered Pending Diagnostic Radiology CT OF THE ABDOMEN AND PELVIS WITH CONTRAST CLINICAL HISTORY: Abdominal pain. COMPARISON STUDY: CT of the abdomen 2017. TECHNIQUE: Following IV administration of 93 mL of Optiray-320, axial images of the abdomen and pelvis were obtained from the lung bases to the proximal femurs. Images were reviewed in the axial, sagittal, and coronal planes. IV contrast was administered without complication. A dose lowering technique was utilized adhering to the principles of ALARA. CT DOSE: 477.09 mGy.cm FINDINGS: Visualized portions of the lower chest demonstrate moderate emphysema. There has been interval development of left lower lung consolidation. There is multifocal nodular opacities within the right middle and lower lobes. No pneumatosis, free air or portal venous gas is present. There are gallstones within the gallbladder. There is no evidence for acute cholecystitis. The liver, spleen, right adrenal gland and pancreas are unremarkable. A left adrenal nodule is unchanged from earlier studies and benign given stability. Mild right abdominal infiltration adjacent to the proximal small bowel is unchanged from prior exam of April 04, 2017. There is no abscess. A right lower quadrant ileostomy is noted. There is mild dilatation of several mid small bowel loops without discrete transition point. There is colonic diverticulosis without evidence for acute diverticulitis. No abdominal or pelvic lymphadenopathy is present. No suspicious osseous lesions are present. Lower abdominal ventral hernia contains multiple small bowel loops without resultant bowel obstruction. IMPRESSION: 1. Interval development of left lower lobe consolidation and multifocal nodular opacities within the right middle and lower lobes. The findings favor pneumonia. A follow-up chest CT in one to 2 months to ensure resolution is recommended. 2. Status post right hemicolectomy. Mild dilatation of several mid small bowel loops without discrete transition point. A partial small bowel obstruction with be difficult to exclude but considered unlikely. Lower abdominal ventral hernia which contains loops of small bowel. 3. Mild right abdominal infiltration which is unchanged since exam of April 04, 2017 and likely chronic. 4. Stable left adrenal nodule which is benign given stability. 5. Cholelithiasis. No evidence for acute cholecystitis CHEST ONE VIEW PORTABLE CLINICAL HISTORY: 72 years-old Female presenting with abd pain. TECHNIQUE: Portable upright AP view of the chest was obtained. COMPARISON: 12/25/2016. FINDINGS: Right subclavian Mediport terminates in the right brachiocephalic vein. Atherosclerosis of the aortic arch. Cardiac silhouette normal in size. Minimal left basilar opacity. No other focal opacity. No large effusion or pneumothorax. Osseous structures normal. Upper abdomen normal. IMPRESSION: 1. Minimal left basilar atelectasis suspected. No other evidence of acute cardiopulmonary disease. EKG SR 83. Impression Assessment and Plan 72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 She was found to have a multifocal pneumonia. 1. HCAP-some fevers and hot flashes as well as some hypoxia with a h/o shortness of breath over the past week. With recent hospitalization within the last 3 months, will start her on broad spectrum antibiotics to include Vanc and Cefepime pending blood and sputum cultures. MRSA swab pending. No respiratory distress present and she is requiring only 2L supplemental oxygen to maintain a 98% saturation. Check Flu PCR. 2. Abdominal pain-uncertain etiology, however, clinical picture is most consistent with a possible partial SBO. She was recently hospitalized for a gallstone pancreatitis and has no evidence of pancreatitis at this time. She does not have persistent vomiting and is tolerating some PO. She is having some nausea, possibly related to chemotherapy vs AGE vs SBO vs other. Cont with antiemetics and offer bowel rest at this time, minimizing vitamins and extra medications. IVF overnight with electrolyte replacement. General Surgery was routinely consulted. No indications for NGT at this time. APAP and morphine PRN pain. 3. Hyponatremia-likely related to poor PO intake. IVF overnight and repeat in am. 4. Hypokalemia-replace and repeat in am. 5. Cecal adenocarcinoma-recently finished 12th cycle of FOLFOX on June 06 and awaiting follow-up with Oncology as outpatient. 6. Anemia of chronic disease-stable, at her baseline. No bleeding and no indication for transfusion at this time. 7. Leukocytosis likely 2/2 infection as above vs SBO. Trend in am. 8. Hypothyroidism-cont Synthroid per home regimen. 9. Osteoporosis. Fosamax, Ca/D supplementation. DVT proph-SCDs, Lovenox Full Code as discussed with she and her sister on admission Dispo-to floor DO Franky Abbott Hospitalist. Resuscitation Status Full Code VTE Prophylaxis Will order VTE Prophylaxis: Yes
[2017-06-26 22:33] LABS: INFLUENZA A PCR Neg for Influ A (NEG); INFLUENZA B PCR Neg for Influ B (NEG)
[2017-06-26 22:52] VITALS: BP 105/75; PULSE 68; TEMP 36.7; O2SAT 98
[2017-06-26] MEDS: PROCHLORPERAZINE MALEATE 10 MG TAB PO SCH (23:57)
[2017-06-27] MEDS: PROCHLORPERAZINE MALEATE 10 MG TAB PO SCH ×4 (05:19→23:14)
[2017-06-27] MEDS: LEVOTHYROXINE 88 MCG TAB PO SCH (05:19)
[2017-06-27] MEDS ORDERED: NURSING VERBAL MED ORDER ONE (05:30)
[2017-06-27 05:36] LABS: HEMOGLOBIN 8.8 g/dL (12.0-16.0); MEAN CORPUSCULAR HEMOGLOBIN 34.5 pg (25-34); MEAN CORPUSCULAR HGB CONC 33.8 g/dl (32-36); MEAN PLATELET VOLUME 9.2 fL (7.4-10.4); PLATELET COUNT 277 K/uL (130-400); RED CELL DISTRIBUTION WIDTH SD 59.3 fL (36.4-46.3); WHITE BLOOD COUNT 11.67 K/uL (4.8-10.8)
[2017-06-27 06:03] LABS: BASO % 0.9 %; EOS % 2.1 %; EOS ABS # 0.24 K/uL (0-0.5); LYMPH % 18.9 %; MONO % 12.9 %; NEUT % 60.1 %; NEUT ABS # 7.03 K/uL (1.4-6.5)
[2017-06-27 06:22] LABS: CALCIUM 8.5 mg/dl (8.5-10.1); CREATININE 0.62 mg/dl (0.60-1.20); PHOSPHORUS 2.5 mg/dl (2.5-4.9); POTASSIUM 3.9 mmol/L (3.5-5.1)
--- NOTE | 2017-06-27 07:11 | Surgery Consultation ---
Consultation Date of Consultation: Jun 27, 2017. Attending Physician: Marlene Woods DO Reason for Consultation: small bowel obstruction History of Present Illness Patient is a 72F who presented to the ED last night due to abdominal pain x 2 days. States her pain is mostly in the epigastric area. She reports multiple intermittent episodes of N/V as well. Denies hematemesis. She reports her last episode of vomiting was last night however minimal. Reports she has felt hot/ cold on and off since her abdominal pain started. She has been urinating without issue. Reports she has only been consuming fluids for the past couple days due to her pain. She last drank some water before she came into the ED last night. She does have a colostomy present at her lower abdomen due to Right hemicoloectomy for colon cancer in July 2016, Left Salpingoopherectomy was also performed during this procedure due to an enlarged left ovary. Denies any other abdominal surgeries in the past. Reports she recently finished her last chemo treatment 2-3 weeks ago. She did have a SBO back in October 2016 here which was treated conservatively. She was also seen her in March for gallstone pancreatitis. It was decided to hold off on removing her gallbladder at that hospitalization as she was still on chemo. Patient was found to have HCAP in the ED and was admitted for antibiotic treatment. WBC 11.[address] shows Mild dilatation of several mid small bowel loops without discrete transition point. A partial small bowel obstruction with be difficult to exclude but considered unlikely. Lower abdominal ventral hernia which contains loops of small bowel. Past Medical/Surgical History Medical Problems: (1) Closed head injury Status: Acute (2) Dehydration Status: Acute (3) Dehydration Status: Acute (4) Dehydration, moderate Status: Acute (5) Fall Status: Acute (6) Hypokalemia Status: Acute (7) Hypothermia Status: Acute (8) Hypoxia Status: Acute (9) Pancreatitis Status: Acute (10) Partial small bowel obstruction Status: Acute (11) Perforated viscus Status: Acute (12) Perforation of cecum Status: Acute (13) Pneumonia Status: Acute (14) Pressure ulcer Status: Acute (15) Rhabdomyolysis Status: Acute (16) Septic shock Status: Acute (17) UTI (urinary tract infection) Status: Acute (18) UTI (urinary tract infection) Status: Acute Family History Colon cancer SISTER SISTER Heart disease MOTHER Hypertension FATHER MOTHER Social History Smoking Status: Former Smoker Smokeless Tobacco Use: No Alcohol Use: socially Drug Use: none Marital Status: single Occupation Status: retired Allergies Coded Allergies: Penicillins (Verified Adverse Reaction, Unknown, feet swelling and gets itchy, 06/26/17) Home Medications Scheduled Albuterol Sulfate (Proair Respiclick), 2 PUFF INH QID Alendronate Sodium (Fosamax), 70 MG PO WK Ascorbic Acid (Vitamin C), 500 MG PO BID Aspirin (Aspirin EC Low Dose), 81 MG PO DAILY Calcium Citrate-Vitamin D (Citracal + D3 Maximum), 1 TAB PO QAM Cetirizine Hcl (Zyrtec), 5 MG PO QPM Cholecalciferol (Vitamin D3), 1,000 UNITS PO DAILY Cyanocobalamin (Vitamin B-12), 1,000 MCG PO QAM Cyanocobalamin (B12), 1,000 MG PO DAILY Ferrous Sulfate (Kp Ferrous Sulfate), 325 MG PO QAM Fluticasone Propionate (Nasal) (Flonase Allergy Relief), 2 SPRAYS MARI QAM Levothyroxine Sodium (Levothyroxine Sodium), 88 MCG PO QAM Magnesium Chloride (Slow-Mag Tab), 64 MG PO BID Multiple Vitamins W/ Minerals (Multivitamin Adults 50+), 1 TAB PO QAM Pravastatin (Pravachol ), 20 MG PO DAILY Prochlorperazine Maleate (Compazine), 1 TAB PO Q6 Senna (Senokot), 8.6 MG PO BID Sertraline (Zoloft), 50 MG PO HS Umeclidinium-Vilanterol (Anoro Ellipta 62.5-25 Mcg/INH), 1 PUFF INH QAM Scheduled PRN Aluminum Hydroxide-Mag Trisil (Gaviscon), 2 TABS PO QID PRN for GI Upset Ondansetron Hcl (Zofran), 4 MG PO Q6 PRN for Nausea Current Inpatient Medications Current Inpatient Medications Medications (Trade) Dose Ordered Sig/Kwabena Route Start Time Stop Time Status Last Admin Dose Admin Ioversol (Optiray 320) 100 ml UD PRN IV 06/26/17 13:00 06/30/17 12:59 Enoxaparin Sodium (Lovenox Inj) 40 mg Q24H SQ 06/26/17 21:00 07/26/17 20:59 4/3/18 21:26 40 MG Acetaminophen (Tylenol Tab) 650 mg Q4H PRN PO 06/26/17 18:00 07/26/17 17:59 Ondansetron HCl (Zofran Inj) 4 mg Q6H PRN IV 06/26/17 18:00 07/26/17 17:59 Cefepime HCl (Consult) 1 ea UD PRN N/A 06/26/17 19:15 07/26/17 19:14 Alendronate Sodium (Fosamax Tab) 70 mg Sa@0900 PO 06/30/17 09:00 07/30/17 08:59 Aspirin (Ecotrin Tab) 81 mg DAILY PO 06/27/17 09:00 07/27/17 08:59 Cetirizine HCl (zyrTEC TAB) 5 mg QPM PO 06/26/17 21:00 07/26/17 20:59 06/26/17 21:16 5 MG Levothyroxine Sodium (Synthroid Tab) 88 mcg DAILYBB PO 06/27/17 06:00 07/27/17 06:59 06/27/17 05:19 88 MCG Magnesium Chloride (Slow-Mag Tab) 64 mg BID PO 06/26/17 21:00 07/26/17 20:59 06/26/17 21:16 64 MG Pravastatin Sodium (Pravachol Tab) 20 mg DAILY PO 06/27/17 09:00 07/27/17 08:59 Prochlorperazine Maleate (Compazine Tab) 10 mg Q6 PO 06/27/17 00:00 07/27/17 00:00 06/27/17 05:19 10 MG Sertraline HCl (Zoloft Tab) 50 mg HS PO 06/26/17 21:00 07/26/17 20:59 06/26/17 21:16 50 MG Miscellaneous Information (Order Awaiting Action) 1 ea QS N/A 06/27/17 00:00 07/27/17 00:00 Miscellaneous Information (Consult) 1 ea UD PRN N/A 06/26/17 19:15 07/26/17 19:14 Heparin Sodium (Porcine) (Heparin 100 Unit/ml 5ml Flush) 5 ml PRN PRN IV 06/26/17 20:30 07/26/17 20:29 Cefepime HCl 2000 mg/Syringe 20 ml @ 5 mls/min Q12H IV 06/27/17 08:00 07/04/17 07:59 Vancomycin HCl 1000 mg/Sodium Chloride 270 ml @ 125 mls/hr Q18H IV 06/27/17 14:00 07/04/17 13:59 Morphine Sulfate (MoRPHine SULFATE INJ) 4 mg Q4H PRN IV 06/26/17 21:00 07/10/17 20:59 Potassium Chloride 40 meq/ Sodium Chloride 1,020 ml @ 125 mls/hr Q8H10M IV 06/26/17 21:00 06/27/17 17:09 06/26/17 21:18 125 MLS/HR Calcium/Vitamin D (Caltrate Plus Tab) 1 tab BID PO 06/27/17 09:00 07/27/17 08:59 Review of Systems Constitutional: + fever (intermittent), + chills (intermittent) Respiratory: No shortness of breath Abdomen: + pain (epigastric), + nausea, + vomiting Genitourinary - Female: No dysuria Physical Exam Date Time Temp Pulse Resp B/P (MAP) Pulse Ox O2 Delivery O2 Flow Rate FiO2 06/26/17 22:52 36.7 68 15 105/75 (85) 98 Nasal Cannula 2.0 06/26/17 20:20 Nasal Cannula 2.0 06/26/17 20:00 36.8 75 14 129/61 98 Nasal Cannula 2.0 06/26/17 19:30 36.8 75 14 129/61 (83) 98 Nasal Cannula 2.0 06/26/17 19:19 71 119/59 98 06/26/17 18:00 72 114/61 98 06/26/17 17:16 75 06/26/17 16:25 95 Nasal Cannula 2.0 06/26/17 16:23 78 113/60 85 Room Air 06/26/17 15:30 72 132/64 92 Room Air 06/26/17 13:26 80 23 94 06/26/17 13:21 91 30 93 Room Air 06/26/17 13:16 83 20 94 06/26/17 13:15 95 06/26/17 13:11 86 16 93 Room Air 06/26/17 13:09 117/66 06/26/17 12:33 36.5 98 20 108/70 96 Room Air General Appearance: WD/WN, no apparent distress Head: normocephalic, atraumatic ENT: hearing grossly normal Respiratory/Chest: no respiratory distress, no accessory muscle use Abdomen/GI: soft, no organomegaly, no pulsatile mass, + tenderness (epigastric , RUQ mild), + pertinent finding (colostomy in place, with good output in bag. Ventral hernia not appreciated on exam.) Neurologic/Psych: alert, normal mood/affect, oriented x 3 Skin: normal color, warm/dry Laboratory Results Last 24 Hours Test 06/26/17 13:50 06/26/17 14:32 06/27/17 05:16 Urine Color DK YELLOW Urine Appearance CLEAR Urine pH 6.0 Urine Specific [place] 1.021 Urine Protein NEG Urine Glucose (UA) NEG Urine Ketones TRACE Urine Occult Blood NEG Urine Nitrite NEG Urine Bilirubin NEG Urine Urobilinogen NEG Urine Leukocyte Esterase MODERATE Urine WBC (Auto) >30 /hpf Urine RBC (Auto) 0-4 /hpf Urine Hyaline Casts (Auto) 10-30 /lpf Urine Epithelial Cells (Auto) 10-20 /lpf Urine Bacteria (Auto) NEG White Blood Count 13.92 K/uL 11.67 K/uL Red Blood Count 2.70 M/uL 2.55 M/uL Hemoglobin 9.3 g/dL 8.8 g/dL Hematocrit 27.8 % 26.0 % Mean Corpuscular Volume 103.0 fL 102.0 fL Mean Corpuscular Hemoglobin 34.4 pg 34.5 pg Mean Corpuscular Hemoglobin Concent 33.5 g/dl 33.8 g/dl Platelet Count 328 K/uL 277 K/uL Mean Platelet Volume 9.4 fL 9.2 fL Neutrophils (%) (Auto) 61.6 % 60.1 % Lymphocytes (%) (Auto) 19.8 % 18.9 % Monocytes (%) (Auto) 13.2 % 12.9 % Eosinophils (%) (Auto) 1.0 % 2.1 % Basophils (%) (Auto) 0.5 % 0.9 % Neutrophils # (Auto) 8.57 K/uL 7.03 K/uL Lymphocytes # (Auto) 2.76 K/uL 2.20 K/uL Monocytes # (Auto) 1.84 K/uL 1.50 K/uL Eosinophils # (Auto) 0.14 K/uL 0.24 K/uL Basophils # (Auto) 0.07 K/uL 0.10 K/uL RDW Standard Deviation 60.6 fL 59.3 fL RDW Coefficient of Variation 16.0 % 16.0 % Immature Granulocyte % (Auto) 3.9 % 5.1 % Immature Granulocyte # (Auto) 0.54 K/uL 0.60 K/uL Nucleated RBC Absolute Count (auto) 0.03 K/uL Nucleated Red Blood Cells % 0.2 % Prothrombin Time 10.1 SECONDS Prothromb Time International Ratio 1.0 Activated Partial Thromboplast Time 22.9 SECONDS Partial Thromboplastin Ratio 0.9 Sodium Level 131 mmol/L 134 mmol/L Potassium Level 3.0 mmol/L 3.9 mmol/L Chloride Level 93 mmol/L 99 mmol/L Carbon Dioxide Level 29 mmol/L 26 mmol/L Anion Gap 9.0 mmol/L 9.0 mmol/L Blood Urea Nitrogen 17 mg/dl 15 mg/dl Creatinine 0.88 mg/dl 0.62 mg/dl Est Creatinine Clear Calc Drug Dose 56.0 ml/min 77.9 ml/min Estimated GFR () 76.6 105.1 Estimated GFR (Non- 66.1 90.7 BUN/Creatinine Ratio 19.6 23.8 Random Glucose 90 mg/dl 78 mg/dl Calcium Level 8.3 mg/dl 8.5 mg/dl Total Bilirubin 0.3 mg/dl Direct Bilirubin 0.1 mg/dl Aspartate Amino Transf (AST/SGOT) 15 U/L Alanine Aminotransferase (ALT/SGPT) 12 U/L Alkaline Phosphatase 68 U/L Troponin I < 0.015 ng/ml Total Protein 6.2 gm/dl Albumin 2.4 gm/dl Lipase 74 U/L Polychromasia 1+ Ovalocytes 1+ Phosphorus Level 2.5 mg/dl Magnesium Level 1.8 mg/dl Thyroid Stimulating Hormone (TSH) 8.280 uIu/ml Assessment & Plan Abdominal pain, possible SBO. Abdomen soft, pain controlled, mild N/V last night since resolved. Tolerating chips/sips without issue. Colostomy with good output. No acute surgical intervention indicated at this time. Can hold on NGT, may place if she develops more nausea/vomiting. Continue conservative management w/ bowel rest. May try clears later today. Will discuss findings with Dr. Dominguez. Will continue to follow. Please contact with questions or concerns.
[2017-06-27 07:41] VITALS: BP 119/65; PULSE 73; TEMP 36.8; O2SAT 97
[2017-06-27] MEDS ORDERED: CEFEPIME IV 2,000 MG in SYRINGE 7.5 ML IV SCH (08:00)
[2017-06-27] MEDS: ASPIRIN 81 MG ECTAB PO SCH (09:45)
[2017-06-27] MEDS: PRAVASTATIN SOD 20 MG TAB PO SCH (09:45)
[2017-06-27] MEDS: MAGNESIUM CHLORIDE 64MG DELAYED REL TAB PO SCH ×2 (09:45→21:15)
[2017-06-27] MEDS: CALCIUM 600MG + VIT D 400 IU TAB PO SCH ×2 (09:46→21:15)
[2017-06-27] MEDS: POTASSIUM CHLORIDE INJ 40 MEQ in SODIUM CHLORIDE 0.9% 1000ML 1,000 ML IV SCH (09:48)
[2017-06-27] MEDS: ALBUTEROL HFA 8 GM INHALER INH PRN (12:20)
[2017-06-27] MEDS ORDERED: VANCOMYCIN IV 1,000 MG in SODIUM CHLORIDE 0.9% 250ML 250 ML IV SCH (14:00)
[2017-06-27 15:59] VITALS: BP 124/74; PULSE 83; TEMP 36.7; O2SAT 95
[2017-06-27 16:33] VITALS: O2SAT 95
[2017-06-27] MEDS: CEFEPIME IV 2,000 MG in SYRINGE 7.5 ML IV SCH ×2 (16:36→23:15)
[2017-06-27] MEDS: ANORO INH SCH (18:23)
[2017-06-27] MEDS: CETIRIZINE HCL 10 MG TAB PO SCH (21:14)
[2017-06-27] MEDS: ENOXAPARIN 40 MG/0.4 ML SYR SQ SCH (21:14)
[2017-06-27] MEDS: SERTRALINE HCL 50 MG TAB PO SCH (21:15)
[2017-06-27 23:10] VITALS: BP 119/70; PULSE 84; TEMP 36.9; O2SAT 94
--- NOTE | 2017-06-27 23:24 | Progress Note ---
Medicine Progress Note Date & Time of Visit: Jun 27, 2017 at 1100. 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 She was found to have a multifocal pneumonia. She reports decreased abdominal pain overnight she denies nausea or vomiting. She denies fevers or chills and has no coughing. She reports an appetite and would like to try food Objective Last 8 Hrs Date Time Temp Pulse Resp B/P (MAP) Pulse Ox O2 Delivery O2 Flow Rate FiO2 06/27/17 16:33 95 Room Air 06/27/17 15:59 36.7 83 18 124/74 (91) 95 Room Air Physical Exam: GEN: WNWD, in no acute distress, alert and appropriate HEENT: NC/AT, normal sclerae, MMM CARDIO: reg rate, S1/2 heard without m/g/r LUNGS: CTA bilaterally, no crackles, rales or wheezes, good diaphragmatic excursion ABD: soft, non-tender, non-distended, no rebound or guarding, hypoactive BS, ileostomy bag in place. EXTREMITY: RP and DP palpable 2+ bilat, no LE swelling or edema, extremities are warm and well-perfused NEURO: CN 2-12 grossly intact, no gross focal deficits MUSC: 5/5 strength throughout, no gross focal deficits SKIN: warm and dry Laboratory Results: 06/27/17 05:16 Red Blood Count 2.55, Mean Corpuscular Volume 102.0, Mean Corpuscular Hemoglobin 34.5, Mean Corpuscular Hemoglobin Concent 33.8, Mean Platelet Volume 9.2, Neutrophils (%) (Auto) 60.1, Lymphocytes (%) (Auto) 18.9, Monocytes (%) ( Auto) 12.9, Eosinophils (%) (Auto) 2.1, Basophils (%) (Auto) 0.9, Neutrophils # (Auto) 7.03, Lymphocytes # (Auto) 2.20, Monocytes # (Auto) 1.50, Eosinophils # ( Auto) 0.24, Basophils # (Auto) 0.10 06/27/17 05:16 Test 06/26/17 00:00 06/26/17 13:50 06/26/17 14:32 06/27/17 05:16 Influenza Type A (RT-PCR) Neg for Influ A (NEG) Influenza Type B (RT-PCR) Neg for Influ B (NEG) Urine Color DK YELLOW Urine Appearance CLEAR (CLEAR) Urine pH 6.0 (4.5-7.5) Urine Specific [place] 1.021 (1.000-1.030) Urine Protein NEG (NEG) Urine Glucose (UA) NEG (NEG) Urine Ketones TRACE (NEG) Urine Occult Blood NEG (NEG) Urine Nitrite NEG (NEG) Urine Bilirubin NEG (NEG) Urine Urobilinogen NEG (NEG) Urine Leukocyte Esterase MODERATE (NEG) Urine WBC (Auto) >30 /hpf (0-5) Urine RBC (Auto) 0-4 /hpf (0-4) Urine Hyaline Casts (Auto) 10-30 /lpf (0-5) Urine Epithelial Cells (Auto) 10-20 /lpf (0-5) Urine Bacteria (Auto) NEG (NEG) Nucleated RBC Absolute Count (auto) 0.03 K/uL (0-0) Nucleated Red Blood Cells % 0.2 % Prothrombin Time 10.1 SECONDS (9.0-12.0) Prothromb Time International Ratio 1.0 (0.9-1.1) Activated Partial Thromboplast Time 22.9 SECONDS (21.0-31.0) Partial Thromboplastin Ratio 0.9 Total Bilirubin 0.3 mg/dl (0.2-1) Direct Bilirubin 0.1 mg/dl (0-0.2) Aspartate Amino Transf (AST/SGOT) 15 U/L (15-37) Alanine Aminotransferase (ALT/SGPT) 12 U/L (12-78) Alkaline Phosphatase 68 U/L (45-117) Troponin I < 0.015 ng/ml (0-0.045) Total Protein 6.2 gm/dl (6.4-8.2) Albumin 2.4 gm/dl (3.4-5.0) Lipase 74 U/L (73-393) White Blood Count 11.67 K/uL (4.8-10.8) Red Blood Count 2.55 M/uL (4.2-5.4) Hemoglobin 8.8 g/dL (12.0-16.0) Hematocrit 26.0 % (37-47) Mean Corpuscular Volume 102.0 fL (80-100) Mean Corpuscular Hemoglobin 34.5 pg (25-34) Mean Corpuscular Hemoglobin Concent 33.8 g/dl (32-36) Platelet Count 277 K/uL (130-400) Mean Platelet Volume 9.2 fL (7.4-10.4) Neutrophils (%) (Auto) 60.1 % Lymphocytes (%) (Auto) 18.9 % Monocytes (%) (Auto) 12.9 % Eosinophils (%) (Auto) 2.1 % Basophils (%) (Auto) 0.9 % Neutrophils # (Auto) 7.03 K/uL (1.4-6.5) Lymphocytes # (Auto) 2.20 K/uL (1.2-3.4) Monocytes # (Auto) 1.50 K/uL (0.11-0.59) Eosinophils # (Auto) 0.24 K/uL (0-0.5) Basophils # (Auto) 0.10 K/uL (0-0.2) RDW Standard Deviation 59.3 fL (36.4-46.3) RDW Coefficient of Variation 16.0 % (11.5-14.5) Immature Granulocyte % (Auto) 5.1 % Immature Granulocyte # (Auto) 0.60 K/uL (0.00-0.02) Polychromasia 1+ Ovalocytes 1+ Anion Gap 9.0 mmol/L (3-11) Est Creatinine Clear Calc Drug Dose 77.9 ml/min Estimated GFR () 105.1 Estimated GFR (Non- 90.7 BUN/Creatinine Ratio 23.8 (10-20) Calcium Level 8.5 mg/dl (8.5-10.1) Phosphorus Level 2.5 mg/dl (2.5-4.9) Magnesium Level 1.8 mg/dl (1.8-2.4) Thyroid Stimulating Hormone (TSH) 8.280 uIu/ml (0.300-4.500) Test 06/27/17 20:36 Bedside Glucose 125 mg/dl (70-90) Date/Time Source Procedure Growth Status 06/26/17 20:08 Blood Blood Culture Pending Received 06/26/17 00:00 Nasal MRSA DNA Surveillance Screen - Final Specimen Negative for MRSA by DNA Probe Complete 06/26/17 13:50 Urine , Clean Catch Urine Culture - Preliminary PIN-POINT GROWTH PRESENT, REINCUBATING. Resulted Last 24 Hours Test 06/27/17 05:16 06/27/17 08:07 06/27/17 20:36 White Blood Count 11.67 K/uL Red Blood Count 2.55 M/uL Hemoglobin 8.8 g/dL Hematocrit 26.0 % Mean Corpuscular Volume 102.0 fL Mean Corpuscular Hemoglobin 34.5 pg Mean Corpuscular Hemoglobin Concent 33.8 g/dl Platelet Count 277 K/uL Mean Platelet Volume 9.2 fL Neutrophils (%) (Auto) 60.1 % Lymphocytes (%) (Auto) 18.9 % Monocytes (%) (Auto) 12.9 % Eosinophils (%) (Auto) 2.1 % Basophils (%) (Auto) 0.9 % Neutrophils # (Auto) 7.03 K/uL Lymphocytes # (Auto) 2.20 K/uL Monocytes # (Auto) 1.50 K/uL Eosinophils # (Auto) 0.24 K/uL Basophils # (Auto) 0.10 K/uL RDW Standard Deviation 59.3 fL RDW Coefficient of Variation 16.0 % Immature Granulocyte % (Auto) 5.1 % Immature Granulocyte # (Auto) 0.60 K/uL Polychromasia 1+ Ovalocytes 1+ Sodium Level 134 mmol/L Potassium Level 3.9 mmol/L Chloride Level 99 mmol/L Carbon Dioxide Level 26 mmol/L Anion Gap 9.0 mmol/L Blood Urea Nitrogen 15 mg/dl Creatinine 0.62 mg/dl Est Creatinine Clear Calc Drug Dose 77.9 ml/min Estimated GFR () 105.1 Estimated GFR (Non- 90.7 BUN/Creatinine Ratio 23.8 Random Glucose 78 mg/dl Calcium Level 8.5 mg/dl Phosphorus Level 2.5 mg/dl Magnesium Level 1.8 mg/dl Thyroid Stimulating Hormone (TSH) 8.280 uIu/ml Bedside Glucose 87 mg/dl 125 mg/dl Assessment & Plan 72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 She was found to have a multifocal pneumonia. She reports decreased abdominal pain overnight she denies nausea or vomiting. She denies fevers or chills and has no coughing. She reports an appetite and would like to try food 1. HCAP-continue cefepime IV until blood cultures return. Anticipate transition to p.o. antibiotics tomorrow as clinical picture has greatly improved. Flu PCR was negative. 2. Abdominal pain-improved, likely secondary to possible developing partial SBO which appears to have resolved. Abdominal pain is not present on exam and patient reports normal lysed output of her ileostomy. Will start clear liquids and advanced diet as tolerated 3. Hyponatremia-likely related to poor PO intake. Improved with IV fluids overnight. 4. Hypokalemia-resolved 5. Cecal adenocarcinoma-recently finished 12th cycle of FOLFOX on June 06 and awaiting follow-up with Oncology as outpatient. 6. Anemia of chronic disease-stable, at her baseline. No bleeding and no indication for transfusion at this time. 7. Leukocytosis likely 2/2 infection as above vs SBO. Improved. 8. Hypothyroidism-cont Synthroid per home regimen. 9. Osteoporosis. Fosamax, Ca/D supplementation. DVT proph-SCDs, Lovenox Full Code as discussed with she and her sister on admission Dispo-to [facility]. Consultants: General surgery-[facility] Current Inpatient Medications: Current Inpatient Medications Medications (Trade) Dose Ordered Sig/[place] Route Start Time Stop Time Status Last Admin Dose Admin Ioversol (Optiray 320) 100 ml UD PRN IV 06/26/17 13:00 06/30/17 12:59 Enoxaparin Sodium (Lovenox Inj) 40 mg Q24H SQ 06/26/17 21:00 07/26/17 20:59 06/27/17 21:14 40 MG Acetaminophen (Tylenol Tab) 650 mg Q4H PRN PO 06/26/17 18:00 07/26/17 17:59 Ondansetron HCl (Zofran Inj) 4 mg Q6H PRN IV 06/26/17 18:00 07/26/17 17:59 Cefepime HCl (Consult) 1 ea UD PRN N/A 06/26/17 19:15 07/26/17 19:14 Alendronate Sodium (Fosamax Tab) 70 mg Sa@0900 PO 06/30/17 09:00 07/30/17 08:59 Aspirin (Ecotrin Tab) 81 mg DAILY PO 06/27/17 09:00 07/27/17 08:59 06/27/17 09:45 81 MG Cetirizine HCl (zyrTEC TAB) 5 mg QPM PO 06/26/17 21:00 07/26/17 20:59 06/27/17 21:14 5 MG Levothyroxine Sodium (Synthroid Tab) 88 mcg DAILYBB PO 06/27/17 06:00 07/27/17 06:59 06/27/17 05:19 88 MCG Magnesium Chloride (Slow-Mag Tab) 64 mg BID PO 06/26/17 21:00 07/26/17 20:59 06/27/17 21:15 64 MG Pravastatin Sodium (Pravachol Tab) 20 mg DAILY PO 06/27/17 09:00 07/27/17 08:59 06/27/17 09:45 20 MG Prochlorperazine Maleate (Compazine Tab) 10 mg Q6 PO 06/27/17 00:00 07/27/17 00:00 06/27/17 23:14 10 MG Sertraline HCl (Zoloft Tab) 50 mg HS PO 06/26/17 21:00 07/26/17 20:59 06/27/17 21:15 50 MG Heparin Sodium (Porcine) (Heparin 100 Unit/ml 5ml Flush) 5 ml PRN PRN IV 06/26/17 20:30 07/26/17 20:29 06/27/17 23:15 5 ML Morphine Sulfate (MoRPHine SULFATE INJ) 4 mg Q4H PRN IV 06/26/17 21:00 07/10/17 20:59 Calcium/Vitamin D (Caltrate Plus Tab) 1 tab BID PO 06/27/17 09:00 07/27/17 08:59 06/27/17 21:15 1 TAB Albuterol (Ventolin Hfa Inhaler) 2 puffs QID PRN INH 06/27/17 11:30 07/27/17 11:29 06/27/17 12:20 2 PUFFS Cefepime HCl 2000 mg/Syringe 20 ml @ 5 mls/min Q8@0000,0800,1600 IV 06/27/17 16:00 07/03/17 23:59 06/27/17 23:15 5 MLS/MIN Non-Formulary Medication (Non-Formulary Patient'S Own Med) 1 ea QAM INH 06/28/17 09:00 07/28/17 08:59 06/27/17 18:23 1 EA
[2017-06-28] MEDS: LEVOTHYROXINE 88 MCG TAB PO SCH (05:23)
[2017-06-28] MEDS: PROCHLORPERAZINE MALEATE 10 MG TAB PO SCH ×4 (05:23→23:25)
--- NOTE | 2017-06-28 06:19 | Surgery Progress Note ---
Surgery Progress Note Date of Service Jun 28, 2017. Subjective + feeling well, + pain controlled, + diet (Tolerating regular diet.), No complaints, No nausea, No vomiting Patient reports no problems with food. States she emptied her bag twice yesterday. Objective Vital Signs: Date Time Temp Pulse Resp B/P (MAP) Pulse Ox O2 Delivery O2 Flow Rate FiO2 06/27/17 23:10 36.9 84 16 119/70 (86) 94 Room Air 06/27/17 20:15 Room Air 06/27/17 16:33 95 Room Air 06/27/17 15:59 36.7 83 18 124/74 (91) 95 Room Air 06/27/17 07:41 36.8 73 16 119/65 (83) 97 2.0 06/27/17 07:00 Nasal Cannula General Appearance: WD/WN, no apparent distress Head: normocephalic, atraumatic Respiratory/Chest: no respiratory distress, no accessory muscle use Abdomen: non distended, soft, no organomegaly, no pulsatile mass, + tenderness (mild generalized), + pertinent finding (Ostomy pink, patent, productive with mucus and succus in bag) Laboratory Results: Results Past 24 Hours Test 06/27/17 08:07 06/27/17 20:36 Range/Units Bedside Glucose 87 125 70-90 mg/dl Assessment & Plan ileus secondary to pneumonia vs SBO Bowel function returned. ileus appears to be resolved at this point. Doing well, pain controlled, tolerating regular diet, No N/V. Ostomy pink, patent, productive. Passing gas and stool into her colostomy bag. Continue medical management per hospitalist service. Please contact with questions or concerns.
[2017-06-28 07:38] VITALS: BP 122/61; PULSE 85; TEMP 36.7; O2SAT 93
[2017-06-28] MEDS: CEFEPIME IV 2,000 MG in SYRINGE 7.5 ML IV SCH ×3 (08:08→23:25)
[2017-06-28] MEDS: ACETAMINOPHEN 325 MG TAB PO PRN (08:08)
[2017-06-28] MEDS: ANORO INH SCH (08:09)
[2017-06-28] MEDS: ALBUTEROL HFA 8 GM INHALER INH PRN (08:09)
[2017-06-28] MEDS: ASPIRIN 81 MG ECTAB PO SCH (08:10)
[2017-06-28] MEDS: PRAVASTATIN SOD 20 MG TAB PO SCH (08:10)
[2017-06-28] MEDS: MAGNESIUM CHLORIDE 64MG DELAYED REL TAB PO SCH ×2 (08:11→21:50)
[2017-06-28] MEDS: CALCIUM 600MG + VIT D 400 IU TAB PO SCH ×2 (08:11→21:50)
[2017-06-28] MEDS ORDERED: ANORO INH SCH (09:00)
[2017-06-28 12:14] VITALS: BP 122/61; PULSE 85; TEMP 36.7; O2SAT 93
[2017-06-28] MEDS ORDERED: LEVO-18 PO (12:19)
--- NOTE | 2017-06-28 12:22 | Clinical Documentation Query ---
CLINICAL DOCUMENTATION QUERY Dr. RITTER, In your clinical opinion is this patient being managed for: (x ) Urinary tract infection ( ) Not Agree ( ) Other explanation of clinical findings (Please Explain) ( ) Unable to determine (Please Define) ( ) Need to Discuss The medical record reflects the following clinical findings, treatment, and risk factors. Clinical Indicators: 72 yo female presenting with pneumonia and abd pain. UA cx prelim with proteus species. Awaiting final sensitivities. Treatment: currently on IV cefepime Risk Factors: gender, age, DM, colon cancer, SBO Please clarify and document your clinical opinion in the progress notes and discharge summary. Terms such as "probable", "suspected", "likely", "questionable", "possible", or "still to be ruled out" are acceptable. IF IN AGREEMENT, YOU MUST DOCUMENT ABOVE DIAGNOSTIC STATEMENT IN DAILY PROGRESS NOTES AND DISCHARGE SUMMARY. This document is not part of the patient's record. Thank You, Denise Padgett RN [phone]
--- NOTE | 2017-06-28 12:40 | Discharge Instructions ---
Discharge Instructions Date of Service Jun 28, 2017. Admission Reason for Admission: Abdominal Pain, Hcap Discharge Discharge Diagnosis / Problem: HCAP, abdominal pain, UTI Discharge Goals Goal(s): Prevent Disease Progression Activity Recommendations Activity Limitations: per Instructions/Follow-up section . Instructions / Follow-Up Instructions / Follow-Up Please take all medications as instructed. You will need a follow-up chest CT in 6-8 weeks to ensure resolution of findings. This can be ordered through your primary care provider's office. You have a follow-up appointment with Dr. Ghazala Whitten on , 07/03 @ 11:05am for follow-up from this hospitalization. Please note for discussion at this time that your TSH was slightly elevated in the hospital and will need to be repeated. You are also recommended to have a repeat chest x-ray in 4-6 weeks to ensure complete resolution of your pneumonia. It was a pleasure taking care of you! Call if you have any questions or problems. You can reach a [facility] hospitalist on duty at [facility] 24 hours a day by calling [phone]. Take care of yourself. Marlene Woods DO [facility] Hospitalist Current Hospital Diet Patient's current hospital diet: Regular Diet Discharge Diet Recommended Diet: Regular Diet Procedures Procedures Performed: None. Pending Studies Studies pending at discharge: yes List of pending studies: Urine culture was pending at discharge. Medical Emergencies . Who to Call and When: Medical Emergencies: If at any time you feel your situation is an emergency, please call 911 immediately. . Non-Emergent Contact Non-Emergency issues call your: Primary Care Provider . . "Provider Documentation" section prepared by Marlene Woods. .
--- NOTE | 2017-06-28 12:45 | Discharge Summary ---
Discharge Summary Date of Service Jun 28, 2017. 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 Vaccinations: None. Consultations: General surgeryWillie Pending Studies/Follow-Up: See instructions below Medication Reconciliation New Medications: Levofloxacin (Levaquin) 750 Mg Tab 750 MG PO DAILY for 5 Days, #5 TAB Continued Medications: Albuterol Sulfate (Proair Respiclick) 108 Mcg/Act Aer 2 PUFF INH QID Alendronate Sodium (Fosamax) 70 Mg Tab 70 MG PO WK, TAB Take every Sunday Aluminum Hydroxide-Mag Trisil (Gaviscon) 1 Chw Chw 2 TABS PO QID PRN for GI Upset Ascorbic Acid (Vitamin C) 500 Mg Tab 500 MG PO BID Aspirin (Aspirin EC Low Dose) 81 Mg Ectab 81 MG PO DAILY Calcium Citrate-Vitamin D (Citracal + D3 Maximum) 1 Tab Tab 1 TAB PO QAM Cetirizine Hcl (Zyrtec) 5 Mg Tab 5 MG PO QPM, TAB Cholecalciferol (Vitamin D3) 1,000 Inter.unit Tab 1000 UNITS PO DAILY Cyanocobalamin (Vitamin B-12) 1,000 Mcg Tab 1000 MCG PO QAM, TAB Cyanocobalamin (B12) 1,000 Mcg Tab 1000 MG PO DAILY Ferrous Sulfate (Kp Ferrous Sulfate) 325 Mg Tab 325 MG PO QAM for 30 Days, #30 TAB 3 Refills Fluticasone Propionate (Nasal) (Flonase Allergy Relief) 50 Mcg/Act Spr 2 SPRAYS MARI QAM Levothyroxine Sodium (Levothyroxine Sodium) 88 Mcg Tab 88 MCG PO QAM, TAB Magnesium Chloride (Slow-Mag Tab) 64 Mg Tabcr 64 MG PO BID for 30 Days, #60 TABS 2 Refills Multiple Vitamins W/ Minerals (Multivitamin Adults 50+) 1 Tab Tab 1 TAB PO QAM Ondansetron Hcl (Zofran) 4 Mg Tab 4 MG PO Q6 PRN for Nausea, TAB Pravastatin (Pravachol ) 20 Mg Tab 20 MG PO DAILY Prochlorperazine Maleate (Compazine) 10 Mg Tab 1 TAB PO Q6 for 7 Days, #30 TAB 3 Refills Senna (Senokot) 8.6 Mg Tab 8.6 MG PO BID, TAB Sertraline (Zoloft) 50 Mg Tab 50 MG PO HS, TAB Umeclidinium-Vilanterol (Anoro Ellipta 62.5-25 Mcg/INH) 1 Aer Aer 1 PUFF INH QAM Admission Information HPI (per Admitting provider): 72 yo F with cecal adenocarcinoma s/p R hemicolectomy in July 2016 with resulting ileostomy presents with two days of abdominal pain and intermittent nausea and vomiting. She reports only taking in liquids for the past two days and admits to not drinking much water. She reports some tenderness to palpation around her ostomy site, but no abdominal pain at rest. She reports some vomiting around 5pm in the evening and states she then feels better. Vomitus is normal-appearing and does not include blood. Ostomy output has been lower than normal in the last couple of days. She was recently hospitalized for acute gallstone pancreatitis and reports completely recovering from this. She does not have epigastric tenderness at this time. She wrapped up her last ( 12th) session of chemotherapy June 06 and has felt well overall. ROS does reveal some lightheadedness on occasion, and for the last week she does report one day of fevers and hot flashes along with some shortness of breath. She reports sleeping alot to the ER physician. In the ER, she does not appear septic , but was found to have a multifocal pneumonia on CT a/p. She also was found to have dilated bowel loops consistent with a poss partial SBO. She has hypoactive bowel sounds on exam but otherwise a very benign abdominal exam without distension. WBC was 14K and Na 131 with K 3.0 and normal renal function. She denies any UTI symptoms including no dysuria, hematuria, or urgency. Physical Exam (per Admitting): General Appearance: WD/WN, no apparent distress Head: normocephalic, atraumatic Eyes: normal inspection, PERRL, EOMI, sclerae normal ENT: hearing grossly normal Neck: supple, no adenopathy, no JVD, trachea midline Respiratory/Chest: lungs clear, normal breath sounds, no respiratory distress, no accessory muscle use Cardiovascular: regular rate, rhythm, no edema, no gallop, no JVD, no murmur , normal peripheral pulses Abdomen/GI: non tender, soft, + abnormal bowel sounds (hypoactive) Back: normal inspection Extremities/Musculoskelatal: normal inspection, no calf tenderness, no pedal edema, normal range of motion Neurologic/Psych: ctrs II-XII nml as tested, no motor/sensory deficits, alert , normal mood/affect, oriented x 3 Skin: normal color, warm/dry Hospital Course 72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 She was found to have a multifocal pneumonia. She reports decreased abdominal pain overnight she denies nausea or vomiting. She denies fevers or chills and has no coughing. She reports an appetite and would like to try food 1. HCAP-continue cefepime IV until blood cultures return. Anticipate transition to p.o. antibiotics tomorrow as clinical picture has greatly improved. Flu PCR was negative. 2. Abdominal pain-improved, likely secondary to possible developing partial SBO which appears to have resolved. Abdominal pain is not present on exam and patient reports normal lysed output of her ileostomy. Will start clear liquids and advanced diet as tolerated 3. Hyponatremia-likely related to poor PO intake. Improved with IV fluids overnight. 4. Hypokalemia-resolved 5. Cecal adenocarcinoma-recently finished 12th cycle of FOLFOX on June 06 and awaiting follow-up with Oncology as outpatient. 6. Anemia of chronic disease-stable, at her baseline. No bleeding and no indication for transfusion at this time. 7. Leukocytosis likely 2/2 infection as above vs SBO. Improved. 8. Hypothyroidism-cont Synthroid per home regimen. 9. Osteoporosis. Fosamax, Ca/D supplementation. DVT proph-SCDs, Lovenox Full Code as discussed with she and her sister on admission Dispo-to floor DO Franky Abbott Hospitalist. Total time spent on discharge = 60 minutes This includes examination of the patient, discharge planning, medication reconciliation, and communication with other providers. Discharge Instructions [facility] [address] [place] [address] Discharge Medical Patient Name: Myriam Méndez Unit Number: [id number] Date of : 1945 Patient Status: Admitted Inpatient Attending Doctor: Marlene Woods DO DI: Medical v5 Discharge Instructions Date of Service Jun 28, 2017. Admission Reason for Admission: Abdominal Pain, Hcap Discharge Discharge Diagnosis / Problem: HCAP, abdominal pain, UTI Discharge Goals Goal(s): Prevent Disease Progression Activity Recommendations Activity Limitations: per Instructions/Follow-up section . Instructions / Follow-Up Instructions / Follow-Up Please take all medications as instructed. You have a follow-up appointment with Dr. Ghazala Whitten on , 07/03 @ 11:05am for follow-up from this hospitalization. Please note for discussion at this time that your TSH was slightly elevated in the hospital and will need to be repeated. You are also recommended to have a repeat chest x-ray in 4-6 weeks to ensure complete resolution of your pneumonia. It was a pleasure taking care of you! Call if you have any questions or problems. You can reach a [facility] hospitalist on duty at [facility] 24 hours a day by calling [phone]. Take care of yourself. Marlene Woods DO [facility] Hospitalist Current Hospital Diet Patient's current hospital diet: Regular Diet Discharge Diet Recommended Diet: Regular Diet Procedures Procedures Performed: None. Pending Studies Studies pending at discharge: yes List of pending studies: Urine culture was pending at discharge. Medical Emergencies . Who to Call and When: Medical Emergencies: If at any time you feel your situation is an emergency, please call 911 immediately. . Non-Emergent Contact Non-Emergency issues call your: Primary Care Provider . . "Provider Documentation" section prepared by Marlene Woods. . Additional Copies To Ghazala Whitten M.D.
[2017-06-28] MEDS: ONDANSETRON INJ 2 MG/ML 2 ML VIAL IV PRN ×2 (13:22→21:54)
[2017-06-28 15:43] VITALS: BP 157/91; PULSE 85; TEMP 37; O2SAT 93
--- NOTE | 2017-06-28 17:39 | Progress Note ---
Medicine Progress Note Date & Time of Visit: Jun 28, 2017 at 16:38. 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 She was found to have a multifocal pneumonia. She initially denied any abdominal pain or bloating, had been tolerating solid foods in the last 24 hours without issue, was off any supplemental oxygen and was ambulating at baseline. However, after initial discharge attempt, she began to get pain across her upper abdomen that was sharp and intermittent. Per conversation with patient we think this was related to possbly bloating from having food in her system for the first time in several days. Abdomen re-examination was still very benign and we decided to switch her back to clear liquids and keep her overnight. Objective Last 8 Hrs Date Time Temp Pulse Resp B/P (MAP) Pulse Ox O2 Delivery O2 Flow Rate FiO2 06/28/17 15:43 37.0 85 18 157/91 (113) 93 Room Air 06/28/17 12:14 36.7 85 16 93 Room Air Physical Exam: GEN: WNWD, in no acute distress, alert and appropriate HEENT: NC/AT, normal sclerae, MMM CARDIO: reg rate, S1/2 heard without m/g/r LUNGS: CTA bilaterally, no crackles, rales or wheezes, good diaphragmatic excursion ABD: soft, non-tender, non-distended, no rebound or guarding, hypoactive BS, ileostomy bag in place. EXTREMITY: RP and DP palpable 2+ bilat, no LE swelling or edema, extremities are warm and well-perfused NEURO: CN 2-12 grossly intact, no gross focal deficits MUSC: 5/5 strength throughout, no gross focal deficits SKIN: warm and dry Laboratory Results: 06/27/17 05:16 Red Blood Count 2.55, Mean Corpuscular Volume 102.0, Mean Corpuscular Hemoglobin 34.5, Mean Corpuscular Hemoglobin Concent 33.8, Mean Platelet Volume 9.2, Neutrophils (%) (Auto) 60.1, Lymphocytes (%) (Auto) 18.9, Monocytes (%) ( Auto) 12.9, Eosinophils (%) (Auto) 2.1, Basophils (%) (Auto) 0.9, Neutrophils # (Auto) 7.03, Lymphocytes # (Auto) 2.20, Monocytes # (Auto) 1.50, Eosinophils # ( Auto) 0.24, Basophils # (Auto) 0.10 06/27/17 05:16 Test 06/26/17 00:00 06/26/17 13:50 06/26/17 14:32 06/27/17 05:16 Influenza Type A (RT-PCR) Neg for Influ A (NEG) Influenza Type B (RT-PCR) Neg for Influ B (NEG) Urine Color DK YELLOW Urine Appearance CLEAR (CLEAR) Urine pH 6.0 (4.5-7.5) Urine Specific [place] 1.021 (1.000-1.030) Urine Protein NEG (NEG) Urine Glucose (UA) NEG (NEG) Urine Ketones TRACE (NEG) Urine Occult Blood NEG (NEG) Urine Nitrite NEG (NEG) Urine Bilirubin NEG (NEG) Urine Urobilinogen NEG (NEG) Urine Leukocyte Esterase MODERATE (NEG) Urine WBC (Auto) >30 /hpf (0-5) Urine RBC (Auto) 0-4 /hpf (0-4) Urine Hyaline Casts (Auto) 10-30 /lpf (0-5) Urine Epithelial Cells (Auto) 10-20 /lpf (0-5) Urine Bacteria (Auto) NEG (NEG) Nucleated RBC Absolute Count (auto) 0.03 K/uL (0-0) Nucleated Red Blood Cells % 0.2 % Prothrombin Time 10.1 SECONDS (9.0-12.0) Prothromb Time International Ratio 1.0 (0.9-1.1) Activated Partial Thromboplast Time 22.9 SECONDS (21.0-31.0) Partial Thromboplastin Ratio 0.9 Total Bilirubin 0.3 mg/dl (0.2-1) Direct Bilirubin 0.1 mg/dl (0-0.2) Aspartate Amino Transf (AST/SGOT) 15 U/L (15-37) Alanine Aminotransferase (ALT/SGPT) 12 U/L (12-78) Alkaline Phosphatase 68 U/L (45-117) Troponin I < 0.015 ng/ml (0-0.045) Total Protein 6.2 gm/dl (6.4-8.2) Albumin 2.4 gm/dl (3.4-5.0) Lipase 74 U/L (73-393) White Blood Count 11.67 K/uL (4.8-10.8) Red Blood Count 2.55 M/uL (4.2-5.4) Hemoglobin 8.8 g/dL (12.0-16.0) Hematocrit 26.0 % (37-47) Mean Corpuscular Volume 102.0 fL (80-100) Mean Corpuscular Hemoglobin 34.5 pg (25-34) Mean Corpuscular Hemoglobin Concent 33.8 g/dl (32-36) Platelet Count 277 K/uL (130-400) Mean Platelet Volume 9.2 fL (7.4-10.4) Neutrophils (%) (Auto) 60.1 % Lymphocytes (%) (Auto) 18.9 % Monocytes (%) (Auto) 12.9 % Eosinophils (%) (Auto) 2.1 % Basophils (%) (Auto) 0.9 % Neutrophils # (Auto) 7.03 K/uL (1.4-6.5) Lymphocytes # (Auto) 2.20 K/uL (1.2-3.4) Monocytes # (Auto) 1.50 K/uL (0.11-0.59) Eosinophils # (Auto) 0.24 K/uL (0-0.5) Basophils # (Auto) 0.10 K/uL (0-0.2) RDW Standard Deviation 59.3 fL (36.4-46.3) RDW Coefficient of Variation 16.0 % (11.5-14.5) Immature Granulocyte % (Auto) 5.1 % Immature Granulocyte # (Auto) 0.60 K/uL (0.00-0.02) Polychromasia 1+ Ovalocytes 1+ Anion Gap 9.0 mmol/L (3-11) Est Creatinine Clear Calc Drug Dose 77.9 ml/min Estimated GFR () 105.1 Estimated GFR (Non- 90.7 BUN/Creatinine Ratio 23.8 (10-20) Calcium Level 8.5 mg/dl (8.5-10.1) Phosphorus Level 2.5 mg/dl (2.5-4.9) Magnesium Level 1.8 mg/dl (1.8-2.4) Thyroid Stimulating Hormone (TSH) 8.280 uIu/ml (0.300-4.500) Test 06/28/17 17:06 Bedside Glucose 124 mg/dl (70-90) Date/Time Source Procedure Growth Status 06/26/17 20:08 Blood Blood Culture - Preliminary NO GROWTH TO DATE. Resulted 06/26/17 00:00 Nasal MRSA DNA Surveillance Screen - Final Specimen Negative for MRSA by DNA Probe Complete 06/26/17 13:50 Urine , Clean Catch Urine Culture - Preliminary Proteus Species Resulted Last 24 Hours Test 06/27/17 20:36 06/28/17 07:52 06/28/17 12:09 Bedside Glucose 125 mg/dl 96 mg/dl 123 mg/dl Assessment & Plan 72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 She was found to have a multifocal pneumonia. She initially denied any abdominal pain or bloating, had been tolerating solid foods in the last 24 hours without issue, was off any supplemental oxygen and was ambulating at baseline. However, after initial discharge attempt, she began to get pain across her upper abdomen that was sharp and intermittent. Per conversation with patient we think this was related to possbly bloating from having food in her system for the first time in several days. Abdomen re-examination was still very benign and we decided to switch her back to clear liquids and keep her overnight. 1. HCAP-cont current abx. 2. UTI 2/2 Klebsiella oxytoca-awaiting sensitivities and then will narrow abx spectrum. 3. Abdominal [id number] today after lunch. Benign abdominal exam. Restart her on clears and monitor overnight. 4. Cecal adenocarcinoma-recently finished 12th cycle of FOLFOX on June 06 and awaiting follow-up with Oncology as outpatient. 5. Anemia of chronic disease-stable, at her baseline. No bleeding and no indication for transfusion at this time. 6. Hypothyroidism-cont Synthroid per home regimen. 7. Osteoporosis. Fosamax, Ca/D supplementation. DVT proph-SCDs, Lovenox Full Code as discussed with she and her sister on admission [facility] Consultants: General surgery-[place] Procedures: None. Vaccinations: None. Current Inpatient Medications: Current Inpatient Medications Medications (Trade) Dose Ordered Sig/[place] Route Start Time Stop Time Status Last Admin Dose Admin Ioversol (Optiray 320) 100 ml UD PRN IV 06/26/17 13:00 06/30/17 12:59 Enoxaparin Sodium (Lovenox Inj) 40 mg Q24H SQ 06/26/17 21:00 07/26/17 20:59 06/27/17 21:14 40 MG Acetaminophen (Tylenol Tab) 650 mg Q4H PRN PO 06/26/17 18:00 07/26/17 17:59 06/28/17 08:08 650 MG Ondansetron HCl (Zofran Inj) 4 mg Q6H PRN IV 06/26/17 18:00 07/26/17 17:59 06/28/17 13:22 4 MG Cefepime HCl (Consult) 1 ea UD PRN N/A 06/26/17 19:15 07/26/17 19:14 Alendronate Sodium (Fosamax Tab) 70 mg Sa@0900 PO 06/30/17 09:00 07/30/17 08:59 Aspirin (Ecotrin Tab) 81 mg DAILY PO 06/27/17 09:00 07/27/17 08:59 06/28/17 08:10 81 MG Cetirizine HCl (zyrTEC TAB) 5 mg QPM PO 06/26/17 21:00 07/26/17 20:59 06/27/17 21:14 5 MG Levothyroxine Sodium (Synthroid Tab) 88 mcg DAILYBB PO 06/27/17 06:00 07/27/17 06:59 06/28/17 05:23 88 MCG Magnesium Chloride (Slow-Mag Tab) 64 mg BID PO 06/26/17 21:00 07/26/17 20:59 06/28/17 08:11 64 MG Pravastatin Sodium (Pravachol Tab) 20 mg DAILY PO 06/27/17 09:00 07/27/17 08:59 06/28/17 08:10 20 MG Prochlorperazine Maleate (Compazine Tab) 10 mg Q6 PO 06/27/17 00:00 07/27/17 00:00 06/28/17 12:26 10 MG Sertraline HCl (Zoloft Tab) 50 mg HS PO 06/26/17 21:00 07/26/17 20:59 06/27/17 21:15 50 MG Heparin Sodium (Porcine) (Heparin 100 Unit/ml 5ml Flush) 5 ml PRN PRN IV 06/26/17 20:30 07/26/17 20:29 06/28/17 13:22 5 ML Morphine Sulfate (MoRPHine SULFATE INJ) 4 mg Q4H PRN IV 06/26/17 21:00 07/10/17 20:59 Calcium/Vitamin D (Caltrate Plus Tab) 1 tab BID PO 06/27/17 09:00 07/27/17 08:59 06/28/17 08:11 1 TAB Albuterol (Ventolin Hfa Inhaler) 2 puffs QID PRN INH 06/27/17 11:30 07/27/17 11:29 06/28/17 08:09 2 PUFFS Cefepime HCl 2000 mg/Syringe 20 ml @ 5 mls/min Q8@0000,0800,1600 IV 06/27/17 16:00 07/03/17 23:59 06/28/17 08:08 5 MLS/MIN Non-Formulary Medication (Non-Formulary Patient'S Own Med) 1 annel QAM INH 06/28/17 09:00 07/28/17 08:59 06/28/17 08:09 1 ANNEL
[2017-06-28] MEDS: SERTRALINE HCL 50 MG TAB PO SCH (21:49)
[2017-06-28] MEDS: CETIRIZINE HCL 10 MG TAB PO SCH (21:50)
[2017-06-28] MEDS: ENOXAPARIN 40 MG/0.4 ML SYR SQ SCH (21:50)
[2017-06-28 23:05] VITALS: BP 107/68; PULSE 86; TEMP 36.8; O2SAT 92
[2017-06-29] MEDS ORDERED: VANCOMYCIN TROUGH ONE (01:30)
[2017-06-29] MEDS: LEVOTHYROXINE 88 MCG TAB PO SCH (05:24)
[2017-06-29] MEDS: PROCHLORPERAZINE MALEATE 10 MG TAB PO SCH ×3 (05:24→18:41)
[2017-06-29 07:20] VITALS: BP 112/74; PULSE 76; TEMP 36.7; O2SAT 91
[2017-06-29] MEDS: ASPIRIN 81 MG ECTAB PO SCH (08:44)
[2017-06-29] MEDS: ALBUTEROL HFA 8 GM INHALER INH PRN (08:44)
[2017-06-29] MEDS: MAGNESIUM CHLORIDE 64MG DELAYED REL TAB PO SCH (08:44)
[2017-06-29] MEDS: PRAVASTATIN SOD 20 MG TAB PO SCH (08:44)
[2017-06-29] MEDS: CALCIUM 600MG + VIT D 400 IU TAB PO SCH (08:44)
[2017-06-29] MEDS: ANORO INH SCH (08:44)
[2017-06-29] MEDS: CEFEPIME IV 2,000 MG in SYRINGE 7.5 ML IV SCH (08:44)
[2017-06-29] MEDS: ACETAMINOPHEN 325 MG TAB PO PRN (08:45)
[2017-06-29 15:46] VITALS: BP 113/70; PULSE 74; TEMP 36.9; O2SAT 94
[2017-06-30] MEDS ORDERED: ALENDRONATE SODIUM 70 MG TAB PO SCH (09:00)
== END 2017-06-29 19:20 | disposition home or self-care (01) | DRG 388 ==
LOC: C.EDB 12:32 → C.MSW 18:02 → ENRESERV 18:37
PROVIDERS: ADMIT Hospitalist; ATTEND Hospitalist
DX: K56.600 Partial intestinal obstruction, unspecified as to cause (principal); J18.9 Pneumonia, unspecified organism; N39.0 Urinary tract infection, site not specified; E87.1 Hypo-osmolality and hyponatremia; E87.6 Hypokalemia; E03.9 Hypothyroidism, unspecified; D63.8 Anemia in other chronic diseases classified elsewhere; M81.0 Age-related osteoporosis without current pathological fracture; E78.1 Pure hyperglyceridemia; Z85.038 Personal history of other malignant neoplasm of large intestine; Z82.49 Family history of ischemic heart disease and other diseases of the circulatory system; Z80.0 Family history of malignant neoplasm of digestive organs; Z87.891 Personal history of nicotine dependence

== ENCOUNTER → 2017-07-17 | Day surgery (SDC) | payer BC ==
[2017-07-11 11:15] VITALS: BMI 29.0
[~2017-07-17] VITALS: Ht 157.5 cm; Wt 72.3 kg
[~2017-07-17] MED LIST changes: +ALEN70TA4 PO; +ASPI-320 PO; +LIDOCAINE HCL 2% 2 ML VIAL (20MG/ML) ONE; +ONDANSETRON INJ 2 MG/ML 2 ML VIAL ONE; +PROC1TAB5 PO; -PROM12.57 PO; +PROPOFOL IV EMULSION 10 MG/ML 20 ML VIAL IV ONE; +VTMD1000 PO
[2017-07-17 09:53] VITALS: Ht 157.5 cm; Wt 72.3 kg
--- NOTE | 2017-07-17 10:14 | Endo History and Physical ---
History & Physical Date of Service: Jul 17, 2017. Chief Complaint: HX CECAL CANCER Referring Physician: DR. COOPER History of Present Illness H/o cecal cancer Past Surgical History Hx Cardiac Surgery: No Hx Internal Defibrillator: No Hx Pacemaker: No Hx Abdominal Surgery: No Hx of Implantable Prosthesis: No Hx Post-Op Nausea and Vomiting: No Hx Cancer Surgery: Yes (COLON RESECTION WITH ILEOSTOMY (OOPHERECTOMY REMOVED ALSO)) Hx Thoracic Surgery: No Hx Orthopedic: No Hx Urinary Tract Surgery: No Family History Colon CA Social History Smoking Status: Former Smoker Hx Substance Use: No Hx Alcohol Use: No Allergies Coded Allergies: Penicillins (Verified Adverse Reaction, Unknown, feet swelling and gets itchy, 07/17/17) Current Medications Reported Home Medications Medications Dose Route/Sig Max Daily Dose Days Date Category Dose Instructions Vitamin D3 (Cholecalciferol) 1,000 Inter.unit Tab 1,000 Units PO QAM 06/26/17 Reported Aspirin EC Low Dose (Aspirin) 81 Mg Ectab 81 Mg PO QPM 06/26/17 Reported Fosamax (Alendronate Sodium) 70 Mg Tab 70 Mg PO WK 06/26/17 Reported Take every Sunday Compazine (Prochlorperazine Maleate) 10 Mg Tab 1 Tab PO Q6 PRN 06/26/17 Reported Pravachol (Pravastatin Sodium) 20 Mg Tab 20 Mg PO QPM 06/26/17 Reported Senokot (Senna) 8.6 Mg Tab 8.6 Mg PO BID 12/22/16 Reported Anoro Ellipta 62.5-25 Mcg/INH (Umeclidinium-Vilanterol) 1 Aer Aer 1 Puff INH QAM 12/22/16 Reported Multivitamin Adults 50+ (Multiple Vitamins W/ Minerals) 1 Tab Tab 1 Tab PO QAM 12/22/16 Reported Zofran (Ondansetron HCl) 4 Mg Tab 4 Mg PO Q6 PRN 11/07/16 Reported Vitamin B-12 (Cyanocobalamin) 1,000 Mcg Tab 1,000 Mcg PO QAM 10/31/16 Reported Kp Ferrous Sulfate (Ferrous Sulfate) 325 Mg Tab 325 Mg PO QAM 10/31/16 Reported Slow-Mag Tab (Magnesium Chloride) 64 Mg Tabcr 64 Mg PO BID 30 10/23/16 Rx Levothyroxine Sodium 88 Mcg Tab 88 Mcg PO QAM 10/19/16 Reported Gaviscon (Aluminum Hydroxide-Mag Trisil) 1 Chw Chw 2 Tabs PO QID PRN 07/30/16 Reported Vitamin C (Ascorbic Acid) 500 Mg Tab 500 Mg PO BID 07/30/16 Reported Citracal + D3 Maximum (Calcium Citrate-Vitamin D) 1 Tab Tab 1 Tab PO QAM 07/16/16 Reported Zyrtec (Cetirizine Hcl) 5 Mg Tab 5 Mg PO QPM 07/16/16 Reported Flonase Allergy Relief (Fluticasone Propionate (Nasal)) 50 Mcg/Act Spr 2 Sprays MARI QAM 07/16/16 Reported Proair Respiclick (Albuterol Sulfate) 108 Mcg/Act Aer 2 Puff INH QID PRN 07/16/16 Reported Zoloft (Sertraline HCl) 50 Mg Tab 50 Mg PO HS 07/16/16 Reported Vital Signs Weight (Kilograms): 72.27 Height (Feet): 5 Height (Inches): 2 Date Time Temp Pulse Resp B/P (MAP) Pulse Ox O2 Delivery O2 Flow Rate FiO2 07/17/17 09:59 36.6 85 18 112/73 (86) 96 Room Air Physical Exam General Appearance: no apparent distress Respiratory/Chest: Auscultation: breath sounds normal Abdomen: Inspection & Palpation: soft Liver: non-tender Assessment and Plan H/o cecal cancer - cscopy
[2017-07-17 11:36] VITALS: BP 158/73; PULSE 79; O2SAT 94
--- NOTE | 2017-07-17 11:56 | GI REPORT ---
Procedure Date: 07/17/2017 10:08 AM Procedure: Colonoscopy Indications: High risk colon cancer surveillance: Personal history of colon cancer; Pt is s/p right hemicolectomy with left sided mucus fistula Medicines: See the Anesthesia note for documentation of the administered medications Complications: No immediate complications. Estimated Blood Loss: Estimated blood loss: none. Procedure: Pre-Anesthesia Assessment: - ASA Grade Assessment: III - A patient with severe systemic disease. After I obtained informed consent, the scope was passed under direct vision. Throughout the procedure, the patient's blood pressure, pulse, and oxygen saturations were monitored continuously. The Scope was introduced through the anus and advanced to the surgical stoma. The colonoscopy was performed without difficulty. The patient tolerated the procedure well. Findings: The perianal and digital rectal examinations were normal. The upper endoscope was introduced into the anus to 40 cm, which appeared to be the distal extent of the colon. There was a fair amount of stool in the rectum. There were sigmoid diverticula. No neoplasia was seen. I attempted to introduce the scope into the mucus fistula, but the stoma was too narrow to allow the scope. The ileostomy was intubated, and was normal. Impression: Unremarkable post-surgical anatomy. Fair prep in left colon. Recommendation: - Discharge patient to home. Repeat exam in 1 year. Nuha Huddleston M.D. Nuha Huddleston MD 07/17/2017 11:55:48 AM This report has been signed electronically. Note Initiated On: 07/17/2017 10:08 AM I attest to the content of the Intraoperative Record and orders documented therein, exceptions below
--- NOTE | 2017-07-17 11:56 | Discharge Instructions ---
Endoscopy Patient Instructions Date / Procedure(s) Performed Jul 17, 2017. Colonoscopy Allergy Information Coded Allergies: Penicillins (Verified Adverse Reaction, Unknown, feet swelling and gets itchy, 07/17/17) Discharge Date / Findings Jul 17, 2017. Unremarkable post surgical anatomy; no neoplasia seen. Diverticulosis. Medication Instructions Stopped Medication(s): STOP ALL MEDICATION Resume all stopped medication today. Provider Instructions Activity Restrictions - No exercising or heavy lifting for 24 hours. - Do not drink alcohol the day of the procedure. - Do not drive a car or operate machinery until the day after the procedure. - Do not make any important decisions or sign important papers in 24 hours after the procedure. Following Day: - Return to full activity which may include returning to work/school. Diet Start your diet with liquids and light foods (jello, soup, juice, toast). Then eat your usual diet if not nauseated. Treatment For Common After Affects For mild abdominal pain, bloating, or excessive gas: - Rest - Eat lightly - Lie on right side Follow-Up Information Follow-up with DR. COOPER as scheduled Anesthesia Information What You Should Know You have had a procedure that required some medicine to reduce anxiety and discomfort. This treatment is called moderate sedation. After receiving the treatment, you may be sleepy, but you will be able to breathe on your own. The effects of the treatment may last for several hours. Follow these instructions along with Activity/Diet recommendations noted above: * Do NOT do anything where dizziness or clumsiness would be dangerous. * Rest quietly at home today, then you can be up and about tomorrow. * Have a responsible person stay with you the rest of today. * You may have had an I.V. today. If so, you may take the dressing off later today. Recommendations Call your doctor if: * Trouble breathing * Continuous vomiting for more than 24 hours * Temperature above 101 degrees * Severe abdominal pain or bloating * Pain not relieved by pain medicine ordered * There is increased drainage or redness from any incision * A large amount of rectal bleeding greater than 2-3 tablespoons. (If you had a polyp/s removed or have hemorrhoids, a small amount of blood - from the rectum is to be expected.) * You have any unanswered questions or concerns. IN THE EVENT OF A SERIOUS EMERGENCY, GO TO THE NEAREST EMERGENCY ROOM Your discharge instructions were prepared by provider Nuha Luna. Patient Instructions Signature Page Myriam Méndez Patient (or Guardian) Signature/Date: I have read and understand the instructions given to me by my caregivers. Caregiver/RN/Doctor Signature/Date: The above-named patient and/or guardian has received patient instructions on this date. + Original Patient Signature Page (only) stays with chart. Please make copy for patient.
--- NOTE | 2017-07-17 12:00 | Anesthesiology Progress Note ---
Anesthesia Post Op Note Date & Time Jul 17, 2017 at 12:00 Vital Signs Pain Intensity: 0 Vital Signs Past 12 Hours Date Time Temp Pulse Resp B/P (MAP) Pulse Ox O2 Delivery O2 Flow Rate FiO2 07/17/17 11:36 79 18 158/73 (101) 94 Room Air 07/17/17 11:20 78 18 147/60 (89) 99 Room Air 07/17/17 11:06 77 16 123/74 (90) 100 Nasal Cannula 2 07/17/17 09:59 36.6 85 18 112/73 (86) 96 Room Air Notes Mental Status: alert / awake / arousable, participated in evaluation Pt Amnestic to Procedure: Yes Nausea / Vomiting: adequately controlled Pain: adequately controlled Airway Patency, RR, SpO2: stable & adequate BP & HR: stable & adequate Hydration State: stable & adequate Anesthetic Complications: no major complications apparent
== END | disposition home or self-care (01) ==
LOC: C.GI 09:21
PROVIDERS: ATTEND Internal Medicine Gastroenterology
DX: Z12.11 Encounter for screening for malignant neoplasm of colon (principal); Z85.038 Personal history of other malignant neoplasm of large intestine; E11.9 Type 2 diabetes mellitus without complications; Z80.0 Family history of malignant neoplasm of digestive organs; F32.9 Major depressive disorder, single episode, unspecified; N18.9 Chronic kidney disease, unspecified; Z87.891 Personal history of nicotine dependence; Z88.0 Allergy status to penicillin; Z79.82 Long term (current) use of aspirin